=== PATIENT | female | born 1945 | race Caucasian/White ===

== ENCOUNTER 2017-11-19 05:17 | Emergency (ER) | payer OTHER ==
[~2017-11-19] VITALS: Ht 175.3 cm; Wt 102.0 kg
[2017-11-19 05:20] VITALS: TEMP 37; Ht 175.3 cm; Wt 102.0 kg
[2017-11-19] MEDS ORDERED: METOPROLOL TARTRATE 1 MG/ML VIAL IV STA ×2 (05:28→05:44)
--- NOTE | 2017-11-19 05:32 | EMERGENCY ROOM VISIT NOTE ---
History Report prepared by Tran: Cynthia Molina Under the Supervision of: Dr. Sanam Figueredo M.D. First contact with patient: 05:21 Chief Complaint: RESPIRATORY PROBLEMS Stated Complaint: TROUBLE BREATHING History of Present Illness The patient is a 72 year old female who presents to the Emergency Room with complaints of sudden respiratory problems beginning this morning. The patient states that she has had a cough beginning 5 days ago. Per son, the patient went to an urgent care clinic 2 days ago and they were concerned that she may have fluid in her lungs. The patient states that she was given Azithromycin at the urgent care clinic. Per son, the patient has a history of congestive heart failure and states that she was in the hospital several years ago for it. The patient also reports having diarrhea. She states that she takes Minocycline daily for a low grade infection, and that she has been taking this daily for 14 years. The patient denies a history of smoking. Source of History: patient, family (son) Onset: this morning Position: other (global) Quality: other (respiratory problems ) Timing: other (sudden ) Associated Symptoms: + cough, + diarrhea Review of Systems See HPI for pertinent positives & negatives. A total of 10 systems reviewed and were otherwise negative. Past Medical & Surgical Medical Problems: (1) Chronic anticoagulation (2) Chronic fatigue syndrome CHF (congestive heart failure) Family History No pertinent family history Social History Smoking Status: Never Smoker Marital Status: single Housing Status: lives with family Occupation Status: disabled Current/Historical Medications Scheduled Azithromycin (Zithromax), 250 MG PO DAILY Benzonatate (Tessalon Perles), 100 MG PO TID Carvedilol (Coreg), 6.25 MG PO BID Furosemide (Lasix), 40 MG PO BID Levothyroxine Sodium (Synthroid), 112 MCG PO DAILY Lisinopril (Prinivil), 40 MG PO DAILY Melatonin (Melatonin), 5-10 MG PO HS Metronidazole (Flagyl), 500 MG PO UD Minocycline (Minocin), 200 MG PO Q12 Oseltamivir (Tamiflu), 75 MG PO BID Rivaroxaban (Xarelto), 20 MG PO DAILY Tinidazole (Tindamax), 500 MG PO UD Zolpidem Tartrate (Zolpidem Tartrate), 10 MG PO HS Allergies Coded Allergies: Codeine (Verified Allergy, Severe, GI SYMPTOMS, 11/19/17) Physical Exam Vital Signs Date Time Temp Pulse Resp B/P (MAP) Pulse Ox O2 Delivery O2 Flow Rate FiO2 11/19/17 06:35 104 12 100 Room Air 11/19/17 06:30 108/74 11/19/17 06:05 97 15 97 Room Air 11/19/17 06:00 104 17 105/78 97 Room Air 11/19/17 05:51 128 11/19/17 05:47 115/76 11/19/17 05:40 105/84 11/19/17 05:37 133 115/77 11/19/17 05:34 100 Room Air 11/19/17 05:30 151 21 100 Room Air 11/19/17 05:27 100 Room Air 11/19/17 05:26 141 11/19/17 05:22 104 11/19/17 05:20 37.0 112 28 115/77 100 Room Air Physical Exam Vital signs reviewed. General: Anxious female, in no significant distress. HEENT: No scleral icterus, PERRLA, neck supple. Atraumatic. Cardiovascular: Tachycardic and irregular rhythm. Pulmonary: Clear to auscultation bilaterally, normal work of breathing. Abdomen: Soft, nontender, nondistended, positive bowel sounds. Musculoskeletal: Atraumatic, no peripheral edema. Neurologic: Patient awake alert and oriented x 3, full strength in all 4 extremities. Cranial nerves 2 through 12 grossly intact. Skin: Warm, dry. Diffuse discoloration of the face, ears, and bilateral anterior lower extremities. Medical Decision & Procedures ER Provider Diagnostic Interpretation: Radiology results as stated below per my review. Chest X-Ray: Cardiomegaly. Poor inspiratory effort. Some interstitial prominence without evidence of failure. No focal lung consolidation. Laboratory Results 11/19/17 05:31 Red Blood Count 4.23, Mean Corpuscular Volume 92.9, Mean Corpuscular Hemoglobin 33.1, Mean Corpuscular Hemoglobin Concent 35.6, Mean Platelet Volume 10.4, Neutrophils (%) (Auto) 55.8, Lymphocytes (%) (Auto) 25.4, Monocytes (%) (Auto) 17.8, Eosinophils (%) (Auto) 0.6, Basophils (%) (Auto) 0.2, Neutrophils # (Auto ) 2.95, Lymphocytes # (Auto) 1.34, Monocytes # (Auto) 0.94, Eosinophils # (Auto ) 0.03, Basophils # (Auto) 0.01 11/19/17 05:31 Test 11/19/17 05:29 11/19/17 05:31 Bedside Lactic Acid Venous 1.99 mmol/L (0.90-1.70) White Blood Count 5.28 K/uL (4.8-10.8) Red Blood Count 4.23 M/uL (4.2-5.4) Hemoglobin 14.0 g/dL (12.0-16.0) Hematocrit 39.3 % (37-47) Mean Corpuscular Volume 92.9 fL (80-100) Mean Corpuscular Hemoglobin 33.1 pg (25-34) Mean Corpuscular Hemoglobin Concent 35.6 g/dl (32-36) Platelet Count 231 K/uL (130-400) Mean Platelet Volume 10.4 fL (7.4-10.4) Neutrophils (%) (Auto) 55.8 % Lymphocytes (%) (Auto) 25.4 % Monocytes (%) (Auto) 17.8 % Eosinophils (%) (Auto) 0.6 % Basophils (%) (Auto) 0.2 % Neutrophils # (Auto) 2.95 K/uL (1.4-6.5) Lymphocytes # (Auto) 1.34 K/uL (1.2-3.4) Monocytes # (Auto) 0.94 K/uL (0.11-0.59) Eosinophils # (Auto) 0.03 K/uL (0-0.5) Basophils # (Auto) 0.01 K/uL (0-0.2) RDW Standard Deviation 49.6 fL (36.4-46.3) RDW Coefficient of Variation 14.7 % (11.5-14.5) Immature Granulocyte % (Auto) 0.2 % Immature Granulocyte # (Auto) 0.01 K/uL (0.00-0.02) Prothrombin Time 12.3 SECONDS (9.0-12.0) Prothromb Time International Ratio 1.2 (0.9-1.1) Activated Partial Thromboplast Time 33.4 SECONDS (21.0-31.0) Partial Thromboplastin Ratio 1.3 Anion Gap 13.0 mmol/L (3-11) Est Creatinine Clear Calc Drug Dose 51.2 ml/min Estimated GFR () 48.1 Estimated GFR (Non- 41.5 BUN/Creatinine Ratio 24.4 (10-20) Calcium Level 8.9 mg/dl (8.5-10.1) Magnesium Level 2.0 mg/dl (1.8-2.4) Total Bilirubin 0.6 mg/dl (0.2-1) Direct Bilirubin 0.2 mg/dl (0-0.2) Aspartate Amino Transf (AST/SGOT) 39 U/L (15-37) Alanine Aminotransferase (ALT/SGPT) 36 U/L (12-78) Alkaline Phosphatase 187 U/L (45-117) Total Creatine Kinase 544 U/L (26-192) Creatine Kinase MB 1.8 ng/ml (0.5-3.6) Creatine Kinase MB Ratio 0.3 (0-3.0) Pro-B-Type Natriuretic Peptide 91 pg/ml (0-900) Total Protein 7.7 gm/dl (6.4-8.2) Albumin 3.3 gm/dl (3.4-5.0) Thyroid Stimulating Hormone (TSH) 0.485 uIu/ml (0.300-4.500) Laboratory results per my review. Medications Administered Medications (Trade) Dose Ordered Sig/Isidro Route Start Time Stop Time Status Last Admin Dose Admin Metoprolol Tartrate (Lopressor Iv) 5 mg NOW STAT IV 11/19/17 05:28 11/19/17 05:30 DC 11/19/17 05:37 5 MG ECG Per My Interpretation Indication: SOB/dyspnea Rate (beats per minute): 152 Rhythm: atrial fibrillation Findings: no acute ischemic change, other (nonspecific ST changes, left axis deviation ) Change: repeat ECG: Sinus tachycardia, rate of 101 with PVC's, no acute ischemic changes , rhythm switched from atrial fibrillation to sinus rhythm, inferior infarct to both ECG's ED Course 0521: Past medical records reviewed. The patient was evaluated in room A10. A complete history and physical examination was performed. 0528: Ordered Lopressor Iv 5 mg IV. 0550: The patient's heart rate has gone down. 0600: I reevaluated the patient. 0630: I updated the patient on her results. 0700: Upon reevaluation, the patient appeared to have improvement of her symptoms. I discussed findings with her. She verbalized agreement of the treatment plan. She was discharged home. Medical Decision Differential diagnosis: Etiologies such as infections, reactive airway disease, pneumonia, pneumothorax , COPD, CHF, cardiac ischemia, pulmonary embolism, musculoskeletal, gastrointestinal, as well as others were entertained. This patient was evaluated and appeared to be in no significant distress. IV access was obtained and laboratory work was drawn. The patient was placed on the media monitor and found to be in rapid atrial fibrillation. She was given 5 mg of IV metoprolol and converted to a sinus tachycardia. Patient has a history of atrial fibrillation and is anticoagulated. Chest x-ray is clear. Cardiac enzymes are negative, potassium is 3.6, magnesium is 2.0. Patient has renal insufficiency with a creatinine of 1.3. On reevaluation the patient was feeling much improved. She was advised to contact her physician regarding further medication management. She will return to the ER for worsening of symptoms or any medical concerns per Medication Reconcilliation Current Medication List: was personally reviewed by me Blood Pressure Screening Patient's blood pressure: Normal blood pressure Impression Primary Impression: Rapid atrial fibrillation Scribe Attestation The scribe's documentation has been prepared under my direction and personally reviewed by me in its entirety. I confirm that the note above accurately reflects all work, treatment, procedures, and medical decision making performed by me. Departure Information Dispostion Home / Self-Care Referrals No Doctor, Assigned (PCP) Forms HOME CARE DOCUMENTATION FORM, IMPORTANT VISIT INFORMATION, WORK / SCHOOL INSTRUCTIONS Patient Instructions My [facility] Additional Instructions Diagnosis: Rapid atrial fibrillation Please continue your medications as prescribed. Continue the azithromycin until the course is complete. Follow-up with your physician in 5 days as scheduled. Please contact the office sooner for any difficulties. Return to the emergency department for worsening of symptoms or any medical concerns
[2017-11-19 05:34] VITALS: O2SAT 100
[2017-11-19] MEDS ORDERED: METOPROLOL TARTRATE 1 MG/ML VIAL ONE (05:35)
[2017-11-19 05:42] LABS: BASO % 0.2 %; BASO ABS # 0.01 K/uL (0-0.2); EOS % 0.6 %; EOS ABS # 0.03 K/uL (0-0.5); HEMATOCRIT 39.3 % (37-47); IG# 0.01 K/uL (0.00-0.02); LYMPH % 25.4 %; LYMPH ABS # 1.34 K/uL (1.2-3.4); MEAN CELL VOLUME 92.9 fL (80-100); MEAN CORPUSCULAR HEMOGLOBIN 33.1 pg (25-34); MEAN CORPUSCULAR HGB CONC 35.6 g/dl (32-36); MEAN PLATELET VOLUME 10.4 fL (7.4-10.4); MONO % 17.8 %; MONO ABS # 0.94 K/uL (0.11-0.59); NEUT % 55.8 %; NEUT ABS # 2.95 K/uL (1.4-6.5); PLATELET COUNT 231 K/uL (130-400); RED CELL DISTRIBUTION WIDTH CV 14.7 % (11.5-14.5); RED CELL DISTRIBUTION WIDTH SD 49.6 fL (36.4-46.3); WHITE BLOOD COUNT 5.28 K/uL (4.8-10.8)
[2017-11-19 05:52] LABS: INR 1.2 (0.9-1.1); PTT PATIENT 33.4 SECONDS (21.0-31.0)
[2017-11-19 06:00] LABS: ALBUMIN 3.3 gm/dl (3.4-5.0); CALCIUM 8.9 mg/dl (8.5-10.1); CREATININE 1.3 mg/dl (0.60-1.20); POTASSIUM 3.6 mmol/L (3.5-5.1)
[2017-11-19 06:11] LABS: CKMB 1.8 ng/ml (0.5-3.6); TOTAL PROTEIN 7.7 gm/dl (6.4-8.2)
[2017-11-19 06:30] VITALS: BP 108/74
[2017-11-19 06:35] VITALS: PULSE 104; O2SAT 100
[2017-11-19] MEDS ORDERED: CARV6.252 PO (07:08)
[2017-11-19] MEDS ORDERED: LEVO112T2 PO (07:08)
[2017-11-19] MEDS ORDERED: FRS/40 PO (07:08)
[2017-11-19] MEDS ORDERED: LISI40TA PO (07:09)
[2017-11-19] MEDS ORDERED: ZOLP10TA6 PO (07:09)
[2017-11-19] MEDS ORDERED: RIVA1TAB4 PO (07:10)
[2017-11-19] MEDS ORDERED: METR-162 PO (07:10)
[2017-11-19] MEDS ORDERED: MELA5TAB18 PO (07:11)
[2017-11-19] MEDS ORDERED: MINO100C22 PO (07:12)
[2017-11-19] MEDS ORDERED: OXYC-57 PO (07:12)
[2017-11-19] MEDS ORDERED: TINI500T PO (07:14)
--- NOTE | 2017-11-19 07:24 | DIAGNOSTIC IMAGING REPORT ---
CHEST ONE VIEW PORTABLE CLINICAL HISTORY: Shortness of breath. Atrial fibrillation. COMPARISON STUDY: No previous studies for comparison. FINDINGS: There are relatively low lung volumes. The heart is mildly enlarged. There is no overt failure. There is no lobar consolidation. There is slight basilar interstitial prominence. There are no significant pleural effusions.[ IMPRESSION: Mild cardiomegaly. No acute findings. Electronically signed by: Eros Crwo M.D. 11/19/2017 7:23 AM Dictated Date/Time: 11/19/2017 7:22 AM
[2017-11-19] MEDS ORDERED: AZIT250T PO (13:27)
[2017-11-19] MEDS ORDERED: BENZ100C18 PO (16:56)
[2017-11-19] MEDS ORDERED: OSEL75CA12 PO (16:56)
== END 2017-11-19 07:12 | disposition home or self-care (01) ==
LOC: C.EDB 05:18 → C.EDA 07:12
DX: I48.91 Unspecified atrial fibrillation (principal); I50.9 Heart failure, unspecified

== ENCOUNTER 2017-11-19 12:31 | Emergency (ER) | payer OTHER ==
[~2017-11-19] VITALS: Ht 170.2 cm; Wt 102.0 kg
[~2017-11-19 12:31] MED LIST: CARV6.252 PO; FRS/40 PO; LEVO112T2 PO; LISI40TA PO; MELA5TAB18 PO; METR-162 PO; MINO100C22 PO; OXYC-57 PO; RIVA1TAB4 PO; TINI500T PO; ZOLP10TA6 PO
[2017-11-19 12:42] VITALS: TEMP 36.8; Ht 170.2 cm; Wt 102.0 kg
--- NOTE | 2017-11-19 13:15 | EMERGENCY ROOM VISIT NOTE ---
History Report prepared by Tran: Jonatan Pedro Under the Supervision of: Dr. Chan Wang M.D. First contact with patient: 13:04 Chief Complaint: ILLNESS Stated Complaint: RESPIRATORY History of Present Illness The patient is a 72 year old female with a history of CHF who presents to the Emergency Room with complaints of a worsening illness that started earlier this morning. Per the patient's son, the patient was seen here in the ER around 0520 this morning for shortness of breath and dizziness. The patient has also had a bad cough. She was given "something to calm her heart down, and then was observed and went home". She had a chest x-ray here as well as an EKG. However, the patient states that her symptoms have been worsening, and she is more short of breath and dizzy. The patient adds that she has chest pain. Per the patient' s son, this is her normal complexion currently. The patient is followed-up with Dr. Rangel of [facility]. She is on Xarelto. She says that she has been complaint with her medications. Source of History: patient, family (son) Onset: This morning Position: other (global) Quality: other (illness) Timing: worsening Associated Symptoms: + cough, + chest pain, + SOB Note: Associated symptoms: Dizziness. Review of Systems See HPI for pertinent positives and negatives. A total of ten systems were reviewed and were otherwise negative. Past Medical & Surgical Medical Problems: (1) Chronic anticoagulation (2) Chronic fatigue syndrome Family History No pertinent family history Social History Smoking Status: Unknown if Ever Smoked Marital Status: single Occupation Status: retired Current/Historical Medications Scheduled Azithromycin (Zithromax), 250 MG PO DAILY Benzonatate (Tessalon Perles), 100 MG PO TID Carvedilol (Coreg), 6.25 MG PO BID Furosemide (Lasix), 40 MG PO BID Levothyroxine Sodium (Synthroid), 112 MCG PO DAILY Lisinopril (Prinivil), 40 MG PO DAILY Melatonin (Melatonin), 5-10 MG PO HS Metronidazole (Flagyl), 500 MG PO UD Minocycline (Minocin), 200 MG PO Q12 Oseltamivir (Tamiflu), 75 MG PO BID Rivaroxaban (Xarelto), 20 MG PO DAILY Tinidazole (Tindamax), 500 MG PO UD Zolpidem Tartrate (Zolpidem Tartrate), 10 MG PO HS Allergies Coded Allergies: Codeine (Verified Allergy, Severe, GI SYMPTOMS, 11/19/17) Physical Exam Vital Signs Date Time Temp Pulse Resp B/P (MAP) Pulse Ox O2 Delivery O2 Flow Rate FiO2 11/19/17 17:22 111 20 100/62 99 11/19/17 16:38 112 20 104/63 97 Room Air 11/19/17 15:25 75 20 102/74 97 Room Air 11/19/17 13:32 100 Room Air 11/19/17 12:45 105 11/19/17 12:42 36.8 105 20 104/79 100 Room Air Physical Exam Physical Exam GENERAL: She is oriented to person, place, and time. She appears well- developed and well-nourished. She does not appear distressed. ____ HENT: Exam performed. Head: Normocephalic and atraumatic. Right Ear: External ear normal. No mastoid tenderness. Left Ear: External ear normal. No mastoid tenderness. Mouth/Throat: The oropharynx is clear and moist. No trismus in the jaw. No dental abscesses or uvula swelling. No oropharyngeal exudate or tonsillar abscesses. ____ EYES: Conjunctivae and EOM are normal. Pupils are equal, round, and reactive to light. Right eye exhibits no discharge. Left eye exhibits no discharge. No scleral icterus. ____ NECK: Normal range of motion. Neck supple. No JVD present. No spinous process tenderness present. No carotid bruit present. No rigidity. No tracheal deviation and normal range of motion present. No Brudzinski's sign and no Kernig 's sign noted. ____ CV: Tachycardic rate, irregular rhythm, normal heart sounds and intact distal pulses. There is no peripheral edema. Palpable radial pulses bue. ____ PULM/CHEST: Rhonchi bilaterally. No stridor. She has no wheezes. She has no rales. Chest Wall: She exhibits no tenderness. ____ ABD: The abdomen is soft. Bowel sounds are normal. She has no distension. No mass is present. There is no tenderness. There is no rebound, no guarding, no Godinez's sign and no tenderness at McBurney's point. Rovsig negative MUSC/SKEL: Normal range of motion. There is no peripheral edema, tenderness or deformity. LYMPH: No cervical adenopathy. ____ NEURO: She is alert and oriented to person, place, and time. She has normal strength. No cranial nerve deficit or sensory deficit. Coordination and gait normal. GCS eye subscore is 4. GCS verbal subscore is 5. GCS motor subscore is 6. Cerebellar tests wnl. ____ SKIN: Greyish discoloration which is baseline per family members who states this is due to her chronic minocycline usage. Skin is warm and dry. She is not diaphoretic. ____ PSYCH: She has a normal mood and affect. She behavior is normal. Judgment and thought content normal. ____ Medical Decision & Procedures ER Provider Diagnostic Interpretation: CT: Radiology results as stated below per my review and radiologist interpretation (CHEST FOR PE) ANGIO WITH CLINICAL HISTORY: 72 years-old Female presenting with atrial fibrillation, shortness of breath, clinical concern for pulmonary embolus. TECHNIQUE: Multidetector CT angiography of the chest was performed after administration of intravenous contrast. 3-D volumetric and/or maximum intensity projection (MIP) images were subsequently reconstructed for review. IV contrast: 109 mL of Optiray 320. A dose lowering technique was used consistent with the principles of ALARA (as low as reasonably achievable). COMPARISON: None. CT DOSE (mGy.cm): The estimated cumulative dose is 570.28 mGycm. FINDINGS: [employer] topogram: Unremarkable. Pulmonary vasculature: The study is adequate for assessment of the pulmonary vascular tree. No filling defect within the pulmonary arteries to suggest embolus. Main pulmonary artery is not enlarged. No flattening of the interventricular septum. No intracardiac filling defect. No reflux of contrast into the hepatic veins. Remaining chest: On soft tissue windows, left subpectoral breast implant. Collapse right breast implant, which appears chronic. Enlarged and multinodular thyroid. No axillary, supraclavicular, hilar, or mediastinal lymphadenopathy. Normal aorta. Normal heart size. Mitral annular calcification. No pericardial or pleural effusion. Hepatic steatosis. On lung windows, solid 5 mm nodule left lung base (series 4 image 89). No other infiltrate or nodule. Airways patent. On bone windows, degenerative changes of the spine. IMPRESSION: 1. No evidence of pulmonary embolus. No acute intrathoracic pathology. 2. Solid 5 mm nodule in the left lower lobe. Follow-up per Deandre Society 2017 recommendations below. 3. Chronically collapsed right breast implant. Please refer to below summary of Fleischner Society 2017 recommendations for follow-up of incidental CT nodules (Jacey Devi et al. Guidelines for management of incidental pulmonary nodules detected on CT images: From the Fleischner Society 2017. Radiology 2017; 284: 228-243.) SOLID NODULES Single nodule; size < 6 mm * Low risk patients: No routine follow-up * High risk patients: Optional CT at 12 months Single nodule; size 6-8 mm * Low risk patients: CT at 6-12 months, then consider CT at 18-24 months * High risk patients: CT at 6-12 months, then at 18-24 months Single nodule; size > 8 mm * Either low or high risk patients: Considered CT at 3 months, PET/CT, or tissue sampling Multiple nodules; size < 6 mm * Low risk patients: No routine follow up * High risk patients: Optional CT at 12 months Multiple nodules; size 6-8 mm * Low risk patients: CT at 3-6 months, then consider CT at 18-24 months * High risk patients: CT at 3-6 months, then at 18-24 months Multiple nodules; size > 8 mm * Low risk patients: CT at 3-6 months, then consider at 18-24 months * High risk patients: CT at 3-6 months, then at 18-24 months SUBSOLID NODULES Single ground-glass nodule * Nodule size < 6 mm: No routine follow-up * Nodule size > or = 6 mm: CT at 6-12 months to confirm persistence, then CT every 2 years until 5 years Single part-solid nodule * Nodule size < 6 mm: No routine follow-up * Nodules size > or = 6 mm: CT at 3-6 months to confirm persistence. If unchanged and solid component remains < 6 mm, annual CT should be performed for 5 years Multiple nodules * Nodule size < 6 mm: CT at 3-6 months. If stable, consider CT at 2 and 4 years. * Nodules size > or = 6 mm: CT at 3-6 months. Subsequent management based on the most suspicious nodule(s) NOTE: These guidelines apply to incidental nodules. These guidelines do not apply to patients younger than 35 years, immunocompromised patients, or patients with cancer. * Low risk patients: Minimal or absent history of smoking and/or other known risk factors * High risk patients: History of smoking, exposure to other carcinogens, emphysema, fibrosis, upper lobe location, family history of lung cancer, etc. If a nodule up to 8 mm is partly solid or is ground glass, further follow-up is required after 24 months to exclude possible slow growing adenocarcinoma. Electronically signed by: Ted Lee M.D. 11/19/2017 4:43 PM Dictated Date/Time: 11/19/2017 4:38 PM Laboratory Results 11/19/17 13:50 Red Blood Count 4.02, Mean Corpuscular Volume 94.0, Mean Corpuscular Hemoglobin 32.6, Mean Corpuscular Hemoglobin Concent 34.7, Mean Platelet Volume 11.0, Neutrophils (%) (Auto) 55.8, Lymphocytes (%) (Auto) 25.2, Monocytes (%) (Auto) 18.4, Eosinophils (%) (Auto) 0.2, Basophils (%) (Auto) 0.2, Neutrophils # (Auto ) 2.72, Lymphocytes # (Auto) 1.23, Monocytes # (Auto) 0.90, Eosinophils # (Auto ) 0.01, Basophils # (Auto) 0.01 11/19/17 13:50 Test 11/19/17 13:30 11/19/17 13:50 Influenza Type A Antigen POS for Influ A (NEG) Influenza Type B Antigen Neg for Influ B (NEG) White Blood Count 4.88 K/uL (4.8-10.8) Red Blood Count 4.02 M/uL (4.2-5.4) Hemoglobin 13.1 g/dL (12.0-16.0) Hematocrit 37.8 % (37-47) Mean Corpuscular Volume 94.0 fL (80-100) Mean Corpuscular Hemoglobin 32.6 pg (25-34) Mean Corpuscular Hemoglobin Concent 34.7 g/dl (32-36) Platelet Count 225 K/uL (130-400) Mean Platelet Volume 11.0 fL (7.4-10.4) Neutrophils (%) (Auto) 55.8 % Lymphocytes (%) (Auto) 25.2 % Monocytes (%) (Auto) 18.4 % Eosinophils (%) (Auto) 0.2 % Basophils (%) (Auto) 0.2 % Neutrophils # (Auto) 2.72 K/uL (1.4-6.5) Lymphocytes # (Auto) 1.23 K/uL (1.2-3.4) Monocytes # (Auto) 0.90 K/uL (0.11-0.59) Eosinophils # (Auto) 0.01 K/uL (0-0.5) Basophils # (Auto) 0.01 K/uL (0-0.2) RDW Standard Deviation 50.0 fL (36.4-46.3) RDW Coefficient of Variation 14.7 % (11.5-14.5) Immature Granulocyte % (Auto) 0.2 % Immature Granulocyte # (Auto) 0.01 K/uL (0.00-0.02) Venous Blood pH 7.46 (7.36-7.41) Venous Blood Partial Pressure CO2 36 mmHg (38.0-50.0) Venous Blood Partial Pressure O2 27 mmHg Venous Blood HCO3 25 mmol/L Venous Blood Oxygen Saturation < 60.0 % Venous Blood Base Excess 1.5 mEq/L Anion Gap 9.0 mmol/L (3-11) Est Creatinine Clear Calc Drug Dose 54.5 ml/min Estimated GFR () 54.1 Estimated GFR (Non- 46.7 BUN/Creatinine Ratio 25.4 (10-20) Lactic Acid Level 1.7 mmol/L (0.4-2.0) Calcium Level 8.9 mg/dl (8.5-10.1) Troponin I < 0.015 ng/ml (0-0.045) Laboratory results reviewed by me Medications Administered Medications (Trade) Dose Ordered Sig/Isidro Route Start Time Stop Time Status Last Admin Dose Admin Ketorolac Tromethamine (Toradol Inj) 15 mg NOW STAT IV 11/19/17 15:46 11/19/17 15:47 DC 11/19/17 15:46 15 MG ECG Per My Interpretation Indication: SOB/dyspnea Rate (beats per minute): 98 Rhythm: other (sinus arrhythmia) Findings: other (DE, QRS, and QTC intervals within normal limits, no ST elevation or ST depression) ED Course 1309: The patient was evaluated in room A11A. A complete history and physical exam was performed. EMR was reviewed - she was seen this morning at 0521 - she came in with atrial fibrillation with RVR, with a rate of 152. She was given 5 mg of Lopressor IV, which controlled her rate. She had lab work done, which showed a negative lactic acid, negative white blood cell count, and negative pro -BNP. 1546: Toradol Inj 15 mg IV. 1650: CTA of chest did not show any PE. Lung nodule was present, the family and patient were made aware of this and they will follow-up with her PCP about this. Labs within normal limits with the exception of positive influenza A. I reevaluated the patient and her vitals are stable. She states that she feels much better. The patient's CTA is negative for any blood clot. Her labs are within normal limits with the exception of being flu positive. The patient will be discharged with Tamiflu and an anti-tussive. DISCHARGE - Plan of care discussed with patient and questions answered. The patient was given both verbal and printed discharge instructions. The patient verbalized understanding and ability to comply. The patient is to seek outpatient follow up as noted in the discharge instructions. The patient verbalized understanding and ability to comply. The patient is discharged in stable condition. The patient was instructed to return for worsening symptoms. Medical Decision CTA of chest did not show any PE. Lung nodule was present, the family and patient were made aware of this and they will follow-up with her PCP about this. Labs within normal limits with the exception of positive influenza A. I reevaluated the patient and her vitals are stable. She states that she feels much better. The patient's CTA is negative for any blood clot. Her labs are within normal limits with the exception of being flu positive. The patient will be discharged with Tamiflu and an anti-tussive. DISCHARGE - Plan of care discussed with patient and questions answered. The patient was given both verbal and printed discharge instructions. The patient verbalized understanding and ability to comply. The patient is to seek outpatient follow up as noted in the discharge instructions. The patient verbalized understanding and ability to comply. The patient is discharged in stable condition. The patient was instructed to return for worsening symptoms. Medication Reconcilliation Current Medication List: was personally reviewed by me Blood Pressure Screening Patient's blood pressure: Normal blood pressure Impression Primary Impression: Influenza Scribe Attestation The scribe's documentation has been prepared under my direction and personally reviewed by me in its entirety. I confirm that the note above accurately reflects all work, treatment, procedures, and medical decision making performed by me. The chart was completed utilizing [employer] Speech voice recognition software. Grammatical errors, random word insertions, pronoun errors, and incomplete sentences are an occasional consequence of this system due to software limitations, ambient noise, and hardware issues. Any formal questions or concerns about the content, text, or information contained within the body of this dictation should be directly addressed to the physician for clarification. Departure Information Dispostion Home / Self-Care Prescriptions Benzonatate (TESSALON PERLES) 100 Mg Cap 100 MG PO TID for Cough, #30 CAP Prov: Chan Wang M.D. 11/19/17 Oseltamivir (Tamiflu) 75 Mg Cap 75 MG PO BID, #10 CAP Prov: Chan Wang M.D. 11/19/17 Referrals No Doctor, Assigned (PCP) Qasim Rangel MD Forms HOME CARE DOCUMENTATION FORM, IMPORTANT VISIT INFORMATION, WORK / SCHOOL INSTRUCTIONS Patient Instructions ED Flu, My [facility]
[2017-11-19] MEDS ORDERED: AZIT250T PO (13:27)
[2017-11-19] MEDS ORDERED: OPTIRAY 320 IV PRN (13:30)
[2017-11-19 13:32] VITALS: O2SAT 100
[2017-11-19 14:10] LABS: BASO % 0.2 %; BASO ABS # 0.01 K/uL (0-0.2); EOS % 0.2 %; EOS ABS # 0.01 K/uL (0-0.5); HEMATOCRIT 37.8 % (37-47); HEMOGLOBIN 13.1 g/dL (12.0-16.0); IG# 0.01 K/uL (0.00-0.02); LYMPH % 25.2 %; LYMPH ABS # 1.23 K/uL (1.2-3.4); MEAN CORPUSCULAR HEMOGLOBIN 32.6 pg (25-34); MEAN CORPUSCULAR HGB CONC 34.7 g/dl (32-36); MONO % 18.4 %; NEUT % 55.8 %; NEUT ABS # 2.72 K/uL (1.4-6.5); PLATELET COUNT 225 K/uL (130-400); RED CELL DISTRIBUTION WIDTH CV 14.7 % (11.5-14.5); WHITE BLOOD COUNT 4.88 K/uL (4.8-10.8)
[2017-11-19 14:16] LABS: INFLUENZA B ANTIGEN Neg for Influ B (NEG)
[2017-11-19 14:27] LABS: BLOOD UREA NITROGEN 30 mg/dl (7-18); CALCIUM 8.9 mg/dl (8.5-10.1); CARBON DIOXIDE 23 mmol/L (21-32); CREATININE 1.18 mg/dl (0.60-1.20); GLUCOSE 94 mg/dl (70-99); POTASSIUM 3.8 mmol/L (3.5-5.1); SODIUM 133 mmol/L (136-145)
[2017-11-19] MEDS ORDERED: KETOROLAC TROMETHAMINE 30 MG/ML VIAL IV STA (15:46)
[2017-11-19] MEDS ORDERED: KETOROLAC TROMETHAMINE 15 MG/ML VIAL ONE (15:56)
--- NOTE | 2017-11-19 16:44 | DIAGNOSTIC IMAGING REPORT ---
(CHEST FOR PE) ANGIO WITH CLINICAL HISTORY: 72 years-old Female presenting with atrial fibrillation, shortness of breath, clinical concern for pulmonary embolus. TECHNIQUE: Multidetector CT angiography of the chest was performed after administration of intravenous contrast. 3-D volumetric and/or maximum intensity projection (MIP) images were subsequently reconstructed for review. IV contrast: 109 mL of Optiray 320. A dose lowering technique was used consistent with the principles of ALARA (as low as reasonably achievable). COMPARISON: None. CT DOSE (mGy.cm): The estimated cumulative dose is 570.28 mGycm. FINDINGS: Belt Turner topogram: Unremarkable. Pulmonary vasculature: The study is adequate for assessment of the pulmonary vascular tree. No filling defect within the pulmonary arteries to suggest embolus. Main pulmonary artery is not enlarged. No flattening of the interventricular septum. No intracardiac filling defect. No reflux of contrast into the hepatic veins. Remaining chest: On soft tissue windows, left subpectoral breast implant. Collapse right breast implant, which appears chronic. Enlarged and multinodular thyroid. No axillary, supraclavicular, hilar, or mediastinal lymphadenopathy. Normal aorta. Normal heart size. Mitral annular calcification. No pericardial or pleural effusion. Hepatic steatosis. On lung windows, solid 5 mm nodule left lung base (series 4 image 89). No other infiltrate or nodule. Airways patent. On bone windows, degenerative changes of the spine. IMPRESSION: 1. No evidence of pulmonary embolus. No acute intrathoracic pathology. 2. Solid 5 mm nodule in the left lower lobe. Follow-up per Deandre Society 2017 recommendations below. 3. Chronically collapsed right breast implant. Please refer to below summary of Fleischner Society 2017 recommendations for follow-up of incidental CT nodules (H Marito et al. Guidelines for management of incidental pulmonary nodules detected on CT images: From the Fleischner Society 2017. Radiology 2017; 284: 228-243.) SOLID NODULES Single nodule; size < 6 mm * Low risk patients: No routine follow-up * High risk patients: Optional CT at 12 months Single nodule; size 6-8 mm * Low risk patients: CT at 6-12 months, then consider CT at 18-24 months * High risk patients: CT at 6-12 months, then at 18-24 months Single nodule; size > 8 mm * Either low or high risk patients: Considered CT at 3 months, PET/CT, or tissue sampling Multiple nodules; size < 6 mm * Low risk patients: No routine follow up * High risk patients: Optional CT at 12 months Multiple nodules; size 6-8 mm * Low risk patients: CT at 3-6 months, then consider CT at 18-24 months * High risk patients: CT at 3-6 months, then at 18-24 months Multiple nodules; size > 8 mm * Low risk patients: CT at 3-6 months, then consider at 18-24 months * High risk patients: CT at 3-6 months, then at 18-24 months SUBSOLID NODULES Single ground-glass nodule * Nodule size < 6 mm: No routine follow-up * Nodule size > or = 6 mm: CT at 6-12 months to confirm persistence, then CT every 2 years until 5 years Single part-solid nodule * Nodule size < 6 mm: No routine follow-up * Nodules size > or = 6 mm: CT at 3-6 months to confirm persistence. If unchanged and solid component remains < 6 mm, annual CT should be performed for 5 years Multiple nodules * Nodule size < 6 mm: CT at 3-6 months. If stable, consider CT at 2 and 4 years. * Nodules size > or = 6 mm: CT at 3-6 months. Subsequent management based on the most suspicious nodule(s) NOTE: These guidelines apply to incidental nodules. These guidelines do not apply to patients younger than 35 years, immunocompromised patients, or patients with cancer. * Low risk patients: Minimal or absent history of smoking and/or other known risk factors * High risk patients: History of smoking, exposure to other carcinogens, emphysema, fibrosis, upper lobe location, family history of lung cancer, etc. If a nodule up to 8 mm is partly solid or is ground glass, further follow-up is required after 24 months to exclude possible slow growing adenocarcinoma. Electronically signed by: Ted Lee M.D. 11/19/2017 4:43 PM Dictated Date/Time: 11/19/2017 4:38 PM
[2017-11-19] MEDS ORDERED: BENZ100C18 PO (16:56)
[2017-11-19] MEDS ORDERED: OSEL75CA12 PO (16:56)
[2017-11-19 17:22] VITALS: BP 100/62; PULSE 111; O2SAT 99
== END 2017-11-19 17:24 | disposition home or self-care (01) ==
LOC: EDBD 12:31 → C.EDA 12:32
DX: J10.1 Influenza due to other identified influenza virus with other respiratory manifestations (principal); Z88.5 Allergy status to narcotic agent

== ENCOUNTER 2017-11-21 13:21 | Inpatient (IN) | payer OTHER ==
[~2017-11-21] VITALS: Ht 170.2 cm; Wt 100.7 kg
[~2017-11-21 13:21] MED LIST changes: +AZIT250T PO; +BENZ100C18 PO; +OSEL75CA12 PO; -OXYC-57 PO
[2017-11-21] MEDS ORDERED: ALBUT/IPRATROP 3MG/0.5MG NEB 3 ML VIAL INH STA (14:03)
[2017-11-21] MEDS ORDERED: SODIUM CHLORIDE 0.9% 500ML 500 ML IV STA (14:04)
--- NOTE | 2017-11-21 14:05 | EMERGENCY ROOM VISIT NOTE ---
History Report prepared by Tran: Pamela Rodriguez Under the Supervision of: Dr. Matt Whitman M.D. First contact with patient: 13:52 Chief Complaint: FLU LIKE SX Stated Complaint: ILLNESS History of Present Illness The patient is a 72 year old female who presents to the Emergency Room with complaints of persistent flu like symptoms for the past several days. She was brought to the ED via ALS. She was seen here in the ED yesterday and diagnosed with flu A. The patient states she has a fever, cough and feels weak. Her BSG is 108. She has experienced chest pain with her cough. She has been nauseous and states she hasn't eaten today. She has not vomited. She reports she is unable to care for herself while at home because "I cannot move". Source of History: patient Onset: past several days Position: other (global) Timing: other (persistent) Associated Symptoms: + fevers, + cough, + chest pain, + nausea, + weakness, No vomiting Review of Systems See HPI for pertinent positives & negatives. A total of 10 systems reviewed and were otherwise negative. Past Medical & Surgical Medical Problems: (1) CHF (congestive heart failure) (2) Chronic anticoagulation (3) Chronic fatigue syndrome Family History No pertinent family history Social History Smoking Status: Never Smoker Alcohol Use: none Drug Use: none Marital Status: single Housing Status: lives alone Occupation Status: retired Current/Historical Medications Scheduled Azithromycin (Zithromax), 250 MG PO DAILY Benzonatate (Tessalon Perles), 100 MG PO TID Carvedilol (Coreg), 6.25 MG PO BID Furosemide (Lasix), 40 MG PO BID Levothyroxine Sodium (Synthroid), 112 MCG PO DAILY Lisinopril (Prinivil), 40 MG PO DAILY Melatonin (Melatonin), 5-10 MG PO HS Metronidazole (Flagyl), 500 MG PO UD Minocycline (Minocin), 200 MG PO Q12 Oseltamivir (Tamiflu), 75 MG PO BID Rivaroxaban (Xarelto), 20 MG PO DAILY Tinidazole (Tindamax), 500 MG PO UD Zolpidem Tartrate (Zolpidem Tartrate), 10 MG PO HS Allergies Coded Allergies: Codeine (Verified Allergy, Severe, GI SYMPTOMS, 11/21/17) Physical Exam Vital Signs Date Time Temp Pulse Resp B/P (MAP) Pulse Ox O2 Delivery O2 Flow Rate FiO2 11/21/17 17:55 105 18 134/75 100 Room Air 11/21/17 15:45 100 15 139/98 100 Room Air 11/21/17 14:45 98 18 117/84 100 Room Air 11/21/17 13:27 105 11/21/17 13:25 36.6 97 20 120/77 100 Room Air Physical Exam GENERAL: Patient is tired appearing and in mild distress. EYES: No scleral icterus, unremarkable pupils. ENT: Mucous membranes dry, no nasal congestion. NECK: No masses appreciated, no meningismus, trachea is midline. RESPIRATORY: No dyspnea. Diffuse wheezing and crackles in all lung ny. No rhonchi. CARDIOVASCULAR: Tachycardic heart rate, regular rhythm. No murmurs, rubs, gallops appreciated. GASTROINTESTINAL: Abdomen soft, nontender, no peritonitis. Bowel sounds positive. No masses appreciated. BACK: No midline tenderness, no CVA tenderness EXTREMITIES: Normal motion all extremities, no cyanosis, no edema. NEUROLOGIC: Alert and oriented, no acute motor or sensory deficits, no focal weakness, cranial nerves grossly intact. SKIN: Poor skin turgor. Treadwell/black staining of lower legs, face and eyes ( chronic secondary to minocycline) No rash, no jaundice, no diaphoresis. Medical Decision & Procedures ER Provider Diagnostic Interpretation: Radiology results and stated below per my review and radiologist interpretation: SINGLE VIEW CHEST CLINICAL HISTORY: Generalized weakness. FINDINGS: An AP, portable, upright chest radiograph is compared to chest x-ray and chest CT dated 11/19/2017. The heart is top normal for projection. The pulmonary vasculature is noncongested. There are low lung lungs with bibasilar atelectasis. Chronic interstitial thickening is similar to previous. No airspace consolidation or large pleural effusion is identified. No pneumothorax is seen. The skeletal structures are osteopenic. There are healed right-sided rib fractures. IMPRESSION: No acute cardiopulmonary abnormality and no significant change from studies dated 11/19/2017. Electronically signed by: Paco Christine M.D. 11/21/2017 2:53 PM Laboratory Results 11/21/17 15:30 Red Blood Count 4.22, Mean Corpuscular Volume 92.4, Mean Corpuscular Hemoglobin 33.2, Mean Corpuscular Hemoglobin Concent 35.9, Mean Platelet Volume 10.3, Neutrophils (%) (Auto) 63.5, Lymphocytes (%) (Auto) 26.6, Monocytes (%) (Auto) 9.3, Eosinophils (%) (Auto) 0.2, Basophils (%) (Auto) 0.2, Neutrophils # (Auto) 3.90, Lymphocytes # (Auto) 1.63, Monocytes # (Auto) 0.57, Eosinophils # (Auto) 0.01, Basophils # (Auto) 0.01 11/21/17 15:30 Test 11/21/17 15:30 11/21/17 15:42 White Blood Count 6.13 K/uL (4.8-10.8) Red Blood Count 4.22 M/uL (4.2-5.4) Hemoglobin 14.0 g/dL (12.0-16.0) Hematocrit 39.0 % (37-47) Mean Corpuscular Volume 92.4 fL (80-100) Mean Corpuscular Hemoglobin 33.2 pg (25-34) Mean Corpuscular Hemoglobin Concent 35.9 g/dl (32-36) Platelet Count 230 K/uL (130-400) Mean Platelet Volume 10.3 fL (7.4-10.4) Neutrophils (%) (Auto) 63.5 % Lymphocytes (%) (Auto) 26.6 % Monocytes (%) (Auto) 9.3 % Eosinophils (%) (Auto) 0.2 % Basophils (%) (Auto) 0.2 % Neutrophils # (Auto) 3.90 K/uL (1.4-6.5) Lymphocytes # (Auto) 1.63 K/uL (1.2-3.4) Monocytes # (Auto) 0.57 K/uL (0.11-0.59) Eosinophils # (Auto) 0.01 K/uL (0-0.5) Basophils # (Auto) 0.01 K/uL (0-0.2) RDW Standard Deviation 48.3 fL (36.4-46.3) RDW Coefficient of Variation 14.4 % (11.5-14.5) Immature Granulocyte % (Auto) 0.2 % Immature Granulocyte # (Auto) 0.01 K/uL (0.00-0.02) Prothrombin Time 11.6 SECONDS (9.0-12.0) Prothromb Time International Ratio 1.1 (0.9-1.1) Activated Partial Thromboplast Time 31.0 SECONDS (21.0-31.0) Partial Thromboplastin Ratio 1.2 Anion Gap 9.0 mmol/L (3-11) Est Creatinine Clear Calc Drug Dose 52.1 ml/min Estimated GFR () 51.5 Estimated GFR (Non- 44.4 BUN/Creatinine Ratio 23.7 (10-20) Calcium Level 8.5 mg/dl (8.5-10.1) Phosphorus Level 3.5 mg/dl (2.5-4.9) Magnesium Level 2.2 mg/dl (1.8-2.4) Total Bilirubin 0.9 mg/dl (0.2-1) Direct Bilirubin 0.3 mg/dl (0-0.2) Aspartate Amino Transf (AST/SGOT) 54 U/L (15-37) Alanine Aminotransferase (ALT/SGPT) 44 U/L (12-78) Alkaline Phosphatase 176 U/L (45-117) Total Creatine Kinase 705 U/L (26-192) Creatine Kinase MB 3.2 ng/ml (0.5-3.6) Creatine Kinase MB Ratio 0.5 (0-3.0) Troponin I < 0.015 ng/ml (0-0.045) Total Protein 7.9 gm/dl (6.4-8.2) Albumin 3.5 gm/dl (3.4-5.0) Lipase 167 U/L (73-393) Bedside Lactic Acid Venous 1.25 mmol/L (0.90-1.70) Laboratory results as reviewed by me. Medications Administered Medications (Trade) Dose Ordered Sig/Isidro Route Start Time Stop Time Status Last Admin Dose Admin Albuterol/ Ipratropium (Duoneb) 3 ml NOW STAT INH 11/21/17 14:03 11/21/17 14:05 DC 11/21/17 14:44 3 ML Sodium Chloride 500 ml @ 999 mls/hr Q31M STAT IV 11/21/17 14:04 11/21/17 14:34 DC 11/21/17 15:45 999 MLS/HR Sodium Chloride 1,000 ml @ 100 mls/hr Q10H STAT IV 11/21/17 16:46 11/21/17 20:08 DC 11/21/17 17:41 100 MLS/HR Oseltamivir Phosphate (Tamiflu Cap) 75 mg NOW STAT PO 11/21/17 16:54 11/21/17 16:55 DC 11/21/17 17:41 75 MG Ketorolac Tromethamine (Toradol Inj) 30 mg STK-MED ONCE .ROUTE 11/21/17 17:31 11/21/17 17:32 DC 11/21/17 17:42 15 MG ECG Per My Interpretation Indication: weakness Rate (beats per minute): 107 Rhythm: sinus tachycardia Findings: no acute ischemic change, no ectopy, other (QTC is 488 milliseconds) Change: EKG: Electrocardiogram per my interpretation. ED Course 1357: The patient was evaluated in room C5. A complete history and physical exam was performed. 1403: DuoNeb 3 ml INH. 1404: NSS 500 ml @ 999 mls/hr IV. 1642: I reevaluated the patient. She states the fluids are moving through her body and she is feeling much better. However, she is far too weak to get up and declines any medications by mouth because they will block up her liver. Her HR is still 110 and she is saturating at 100%. I discussed my recommendation she remain in the hospital for further evaluation and management and she verbalized complete understanding and agreement. 1646: NSS 1000 ml @ 100 mls/hr IV. 1653: I discussed the patients case with Dr. Hamilton, [facility] Hospitalist. The patient will be further evaluated. 1654: Tamiflu 75 mg PO. 1737: The patient asked for Toradol. I will put in orders. Medical Decision 72 yr old female arrives for evaluation of fatigue, generalized weakness and loss of appetite. Diagnosed with Influenza 2 days ago here in ED. She has been here now 3 times and is clearly not doing well at home. Mildly tachycardic , dehydrated and is having diffuse wheezing. Wheezing much improved with neb. She is feeling better after fluids though notes too weak to stand. With her CHF I am a bit anxious about given too much fluids right off. No evidence pneumonia, sepsis, bacteremia currently. She is having increasing CK which is a bit concerning given she has been just laying on cough unable to get up due to illness. Complaining that her liver must be blocked up but no TTP nor significant abdominal pain. Blood cultures were obtained given she is coming in. She has no evidence of ACS/PE currently, and just had CT PE here 2 days ago which was negative. She is not doing well at home and given this she will need to come in for further monitoring, rehydration. Medication Reconcilliation Current Medication List: was personally reviewed by me Blood Pressure Screening Patient's blood pressure: Normal blood pressure Blood pressure disposition: Did not require urgent referral Consults Time Called: 164 Consulting Physician: Dr. Hamilton [facility] Hospitalist Returned Call: [phone] I discussed the patients case with Dr. Hamilton [facility] Hospitalist. The patient will be further evaluated. Impression Primary Impression: Influenza Additional Impressions: Failure to thrive Generalized weakness Dehydration Elevated CK Scribe Attestation The scribe's documentation has been prepared under my direction and personally reviewed by me in its entirety. I confirm that the note above accurately reflects all work, treatment, procedures, and medical decision making performed by me. Departure Information Dispostion Being Evaluated By Hospitalist Referrals Qasim Rangel MD (PCP) Patient Instructions My [facility] Problem Qualifiers
--- NOTE | 2017-11-21 14:54 | DIAGNOSTIC IMAGING REPORT ---
SINGLE VIEW CHEST CLINICAL HISTORY: Generalized weakness. FINDINGS: An AP, portable, upright chest radiograph is compared to chest x-ray and chest CT dated 11/19/2017. The heart is top normal for projection. The pulmonary vasculature is noncongested. There are low lung lungs with bibasilar atelectasis. Chronic interstitial thickening is similar to previous. No airspace consolidation or large pleural effusion is identified. No pneumothorax is seen. The skeletal structures are osteopenic. There are healed right-sided rib fractures. IMPRESSION: No acute cardiopulmonary abnormality and no significant change from studies dated 11/19/2017. Electronically signed by: Paco Christine M.D. 11/21/2017 2:53 PM Dictated Date/Time: 11/21/2017 2:51 PM
[2017-11-21 15:41] LABS: BASO % 0.2 %; BASO ABS # 0.01 K/uL (0-0.2); EOS % 0.2 %; EOS ABS # 0.01 K/uL (0-0.5); IG# 0.01 K/uL (0.00-0.02); LYMPH % 26.6 %; LYMPH ABS # 1.63 K/uL (1.2-3.4); MEAN CELL VOLUME 92.4 fL (80-100); MEAN CORPUSCULAR HEMOGLOBIN 33.2 pg (25-34); MEAN CORPUSCULAR HGB CONC 35.9 g/dl (32-36); MEAN PLATELET VOLUME 10.3 fL (7.4-10.4); MONO % 9.3 %; MONO ABS # 0.57 K/uL (0.11-0.59); NEUT % 63.5 %; PLATELET COUNT 230 K/uL (130-400); RED CELL DISTRIBUTION WIDTH CV 14.4 % (11.5-14.5); RED CELL DISTRIBUTION WIDTH SD 48.3 fL (36.4-46.3); WHITE BLOOD COUNT 6.13 K/uL (4.8-10.8)
[2017-11-21 15:49] LABS: INR 1.1 (0.9-1.1)
[2017-11-21 16:13] LABS: ALBUMIN 3.5 gm/dl (3.4-5.0); ALKALINE PHOSPHATASE 176 U/L (45-117); ALT/SGPT 44 U/L (12-78); AST/SGOT 54 U/L (15-37); BLOOD UREA NITROGEN 29 mg/dl (7-18); CALCIUM 8.5 mg/dl (8.5-10.1); CARBON DIOXIDE 25 mmol/L (21-32); CKMB 3.2 ng/ml (0.5-3.6); CREATININE 1.23 mg/dl (0.60-1.20); GLUCOSE 90 mg/dl (70-99); LIPASE 167 U/L (73-393); PHOSPHORUS 3.5 mg/dl (2.5-4.9); POTASSIUM 3.9 mmol/L (3.5-5.1); SODIUM 132 mmol/L (136-145); TOTAL PROTEIN 7.9 gm/dl (6.4-8.2)
[2017-11-21] MEDS ORDERED: SODIUM CHLORIDE 0.9% 1000ML 1,000 ML IV STA (16:46)
[2017-11-21] MEDS ORDERED: OSELTAMIVIR PHOSPHATE 75 MG CAP PO STA (16:54)
[2017-11-21] MEDS ORDERED: KETOROLAC TROMETHAMINE 30 MG/ML VIAL ONE (17:31)
--- NOTE | 2017-11-21 17:32 | History and Physical ---
History & Physical Date & Time of Service: Nov 21, 2017 at 17:24 Chief Complaint: Illness Primary Care Physician: Qasim Rangel MD History of Present Illness Source: patient, family Ms. Eva Ford is a 72-year-old woman with past medical history significant for atrial fibrillation on anticoagulation therapy, congestive heart failure (unknown EF; no records in [facility]) and hypothyroidism patient was in her usual state of health until 6 days ago when she developed general malaise and intermittent shortness of breath with exertion. Symptoms gradually worsen and she went to see a provider in urgent care facility who diagnosed her with influenza. Patient has been compliant with medication but despite best efforts symptoms continue to worsen in the emergency department patient is reaching appropriate oxygen saturation on room air.. Chest radiograph was obtained. There is no cardiopulmonary abnormalities compared to radiograph on 19 November however there is low lung volumes and bibasilar atelectasis. Otherwise patient is afebrile hemodynamically stable. Of note patient is chronically on minocycline. She is unable to tell me what diagnosis she carries but states that she has "low-grade infections". Past Medical/Surgical History Medical Problems: (1) Atrial fibrillation (2) CHF (congestive heart failure) (3) Chronic anticoagulation (4) Chronic fatigue syndrome (5) Influenza (6) Rapid atrial fibrillation Family History No pertinent family history Social History Smoking Status: Never Smoker Drug Use: none Marital Status: single Occupational Status: retired Allergies Coded Allergies: Codeine (Verified Allergy, Severe, GI SYMPTOMS, 11/21/17) Home Medications Scheduled Azithromycin (Zithromax), 250 MG PO DAILY Benzonatate (Tessalon Perles), 100 MG PO TID Carvedilol (Coreg), 6.25 MG PO BID Furosemide (Lasix), 40 MG PO BID Levothyroxine Sodium (Synthroid), 112 MCG PO DAILY Lisinopril (Prinivil), 40 MG PO DAILY Melatonin (Melatonin), 5-10 MG PO HS Metronidazole (Flagyl), 500 MG PO UD Minocycline (Minocin), 200 MG PO Q12 Oseltamivir (Tamiflu), 75 MG PO BID Rivaroxaban (Xarelto), 20 MG PO DAILY Tinidazole (Tindamax), 500 MG PO UD Zolpidem Tartrate (Zolpidem Tartrate), 10 MG PO HS Review of Systems Constitutional: + fatigue, No fever, No chills, No sweats, No weight loss, No weakness, No problem reported Eyes: No worsening of vision, No eye pain, No redness, No discharge, No diplopia, No problem reported ENT: No hearing loss, No unusual epistaxis, No nasal symptoms, No sore throat, No tinnitus, No dental problems, No trouble swallowing, No problem reported Respiratory: + cough, + shortness of breath, No sputum, No wheezing, No dyspnea on exertion, No dyspnea at rest, No hemoptysis, No problem reported Cardiovascular: No chest pain, No orthopnea, No PND, No edema, No claudication , No palpitations, No problem reported Abdomen: No pain, No nausea, No vomiting, No diarrhea, No constipation, No GI bleeding, No problem reported Musculoskeletal: No joint pain, No muscle pain, No swelling, No calf pain, No problem reported Neurologic: No memory loss, No paralysis, No weakness, No numbness/tingling, No vertigo, No balance problems, No problem reported Endocrine: No fatigue, No excessive thirst, No excessive urination, No problem reported Physical Exam Vital Signs Date Time Temp Pulse Resp B/P (MAP) Pulse Ox O2 Delivery O2 Flow Rate FiO2 11/21/17 15:45 100 15 139/98 100 Room Air 11/21/17 14:45 98 18 117/84 100 Room Air 11/21/17 13:27 105 11/21/17 13:25 36.6 97 20 120/77 100 Room Air General Appearance: no apparent distress Head: normocephalic, atraumatic Eyes: normal inspection, PERRL, EOMI ENT: normal ENT inspection Neck: supple, no adenopathy, no JVD Respiratory/Chest: chest non-tender, + pertinent finding (Bases with diminished breath sounds but bilateral apex are clear, no evidence of crackles or wheezes) Cardiovascular: no gallop, no JVD, no murmur, + tachycardia, + irregularly irregular Abdomen/GI: normal bowel sounds, non tender, soft Back: no CVA tenderness Extremities/Musculoskelatal: normal inspection, no calf tenderness, no pedal edema 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, alert, normal mood/affect Diagnostics Laboratory Results Results Past 24 Hours Test 11/21/17 15:30 Range/Units White Blood Count 6.13 4.8-10.8 K/uL Red Blood Count 4.22 4.2-5.4 M/uL Hemoglobin 14.0 12.0-16.0 g/dL Hematocrit 39.0 37-47 % Mean Corpuscular Volume 92.4 80-100 fL Mean Corpuscular Hemoglobin 33.2 25-34 pg Mean Corpuscular Hemoglobin Concent 35.9 32-36 g/dl Platelet Count 230 130-400 K/uL Mean Platelet Volume 10.3 7.4-10.4 fL Neutrophils (%) (Auto) 63.5 % Lymphocytes (%) (Auto) 26.6 % Monocytes (%) (Auto) 9.3 % Eosinophils (%) (Auto) 0.2 % Basophils (%) (Auto) 0.2 % Neutrophils # (Auto) 3.90 1.4-6.5 K/uL Lymphocytes # (Auto) 1.63 1.2-3.4 K/uL Monocytes # (Auto) 0.57 0.11-0.59 K/uL Eosinophils # (Auto) 0.01 0-0.5 K/uL Basophils # (Auto) 0.01 0-0.2 K/uL RDW Standard Deviation 48.3 36.4-46.3 fL RDW Coefficient of Variation 14.4 11.5-14.5 % Immature Granulocyte % (Auto) 0.2 % Immature Granulocyte # (Auto) 0.01 0.00-0.02 K/uL Prothrombin Time 11.6 9.0-12.0 SECONDS Prothromb Time International Ratio 1.1 0.9-1.1 Activated Partial Thromboplast Time 31.0 21.0-31.0 SECONDS Partial Thromboplastin Ratio 1.2 Sodium Level 132 136-145 mmol/L Potassium Level 3.9 3.5-5.1 mmol/L Chloride Level 98 98-107 mmol/L Carbon Dioxide Level 25 21-32 mmol/L Anion Gap 9.0 3-11 mmol/L Blood Urea Nitrogen 29 7-18 mg/dl Creatinine 1.23 0.60-1.20 mg/dl Est Creatinine Clear Calc Drug Dose 52.1 ml/min Estimated GFR () 51.5 Estimated GFR (Non- 44.4 BUN/Creatinine Ratio 23.7 10-20 Random Glucose 90 70-99 mg/dl Calcium Level 8.5 8.5-10.1 mg/dl Phosphorus Level 3.5 2.5-4.9 mg/dl Magnesium Level 2.2 1.8-2.4 mg/dl Total Bilirubin 0.9 0.2-1 mg/dl Direct Bilirubin 0.3 0-0.2 mg/dl Aspartate Amino Transf (AST/SGOT) 54 15-37 U/L Alanine Aminotransferase (ALT/SGPT) 44 12-78 U/L Alkaline Phosphatase 176 45-117 U/L Total Creatine Kinase 705 26-192 U/L Creatine Kinase MB 3.2 0.5-3.6 ng/ml Creatine Kinase MB Ratio 0.5 0-3.0 Troponin I < 0.015 0-0.045 ng/ml Total Protein 7.9 6.4-8.2 gm/dl Albumin 3.5 3.4-5.0 gm/dl Lipase 167 73-393 U/L Microbiology Results 11/21/17 Blood Culture, Received Pending 11/21/17 Blood Culture, Received Pending Diagnostic Radiology Chest Radiograph SINGLE VIEW CHEST CLINICAL HISTORY: Generalized weakness. FINDINGS: An AP, portable, upright chest radiograph is compared to chest x-ray and chest CT dated 11/19/2017. The heart is top normal for projection. The pulmonary vasculature is noncongested. There are low lung lungs with bibasilar atelectasis. Chronic interstitial thickening is similar to previous. No airspace consolidation or large pleural effusion is identified. No pneumothorax is seen. The skeletal structures are osteopenic. There are healed right-sided rib fractures. IMPRESSION: No acute cardiopulmonary abnormality and no significant change from studies dated 11/19/2017. Impression Assessment and Plan LT 72 /F admitted for influenza infection with worsening symptoms. 1) Influenza infection Continue with oseltamivir scheduled duo nebs and incentive spirometry has been ordered Droplet precautions 2) atrial fibrillation Patient goes into rapid ventricular rate every time she has a coughing spell; she is already on anticoagulation therapy with Xarelto will continue with medication 3) congestive heart failure unspecified No echocardiogram reports in EMR resume carvedilol 6/25 mg PO bid, resume Lasix 40 PO BID resume lisinopril 40 mg PO daily 4) hypothyroidism Stable no active issues Resume levothyroxine 112 mcg p.o. every morning Resuscitation Status VTE Prophylaxis Will order VTE Prophylaxis: Yes
[2017-11-21] MEDS ORDERED: KETOROLAC TROMETHAMINE 30 MG/ML VIAL IV STA (17:37)
[2017-11-21] MEDS: ALBUT/IPRATROP 3MG/0.5MG NEB 3 ML VIAL INH SCH (19:48)
[2017-11-21] MEDS ORDERED: IV FLUIDS COMPLETED PRN (20:00)
[2017-11-21 20:19] VITALS: BP 146/89; PULSE 108; TEMP 36.9; O2SAT 100; Ht 170.2 cm; Wt 100.7 kg
[2017-11-21] MEDS ORDERED: KETOROLAC TROMETHAMINE 15 MG/ML VIAL IV ONE (21:15)
[2017-11-21] MEDS ORDERED: KETOROLAC TROMETHAMINE 15 MG/ML VIAL ONE (21:15)
[2017-11-21] MEDS: ZOLPIDEM TARTRATE 10 MG TAB PO SCH (22:23)
[2017-11-21] MEDS: BENZONATATE 100MG CAP PO SCH (22:25)
[2017-11-21] MEDS: FUROSEMIDE 40 MG TAB PO SCH (22:25)
[2017-11-21] MEDS: CARVEDILOL 6.25 MG TAB PO SCH (22:25)
[2017-11-21 23:30] VITALS: BP 115/75; PULSE 98; TEMP 36.9; O2SAT 99
[2017-11-22] VITALS (9 sets, daily range): BP systolic 97–135; BP diastolic 63–85; PULSE 70–115; TEMP 36.6–36.9; O2SAT 98–100
[2017-11-22] MEDS: LEVOTHYROXINE 112 MCG TAB PO SCH (05:38)
[2017-11-22] MEDS: KETOROLAC TROMETHAMINE 10 MG TAB PO PRN ×3 (05:39→23:07)
[2017-11-22 06:40] LABS: HEMATOCRIT 33.8 % (37-47); HEMOGLOBIN 11.7 g/dL (12.0-16.0); MEAN CELL VOLUME 92.6 fL (80-100); MEAN CORPUSCULAR HEMOGLOBIN 32.1 pg (25-34); MEAN CORPUSCULAR HGB CONC 34.6 g/dl (32-36); MEAN PLATELET VOLUME 10.5 fL (7.4-10.4); PLATELET COUNT 199 K/uL (130-400); RED CELL DISTRIBUTION WIDTH CV 14.1 % (11.5-14.5); RED CELL DISTRIBUTION WIDTH SD 47.5 fL (36.4-46.3); WHITE BLOOD COUNT 3.94 K/uL (4.8-10.8)
[2017-11-22] MEDS: ALBUT/IPRATROP 3MG/0.5MG NEB 3 ML VIAL INH SCH ×4 (06:57→18:59)
[2017-11-22 07:15] LABS: CALCIUM 8.4 mg/dl (8.5-10.1); CREATININE 1.13 mg/dl (0.60-1.20); POTASSIUM 3.6 mmol/L (3.5-5.1)
--- NOTE | 2017-11-22 08:56 | Progress Note ---
Subjective Date of Service: Nov 22, 2017. Subjective Pt evaluation today including: conversation w/ patient, physical exam, chart review, lab review, review of studies, review of inpatient medication list Pain: no pian Voiding: no voiding problems, no incontinence Pt is seen and examined by me. Pt states she feel much better than yesterday. Her energy level improved. pt cough is not as much with yellow greenish mucus w/ o blood. Pt chest is tender when she coughs other becerril denies cp, sob, dizziness , palpitation and loss of consciousness. O2 sat is 98% at RA. Problem List Medical Problems: (1) Dehydration Status: Acute (2) Elevated CK Status: Acute (3) Failure to thrive Status: Acute (4) Generalized weakness Status: Acute (5) Influenza Status: Acute (6) Influenza Status: Acute (7) Rapid atrial fibrillation Status: Acute Review of Systems Constitutional: + fatigue, No fever, No chills, No sweats Respiratory: + cough, + sputum, No wheezing, No shortness of breath, No dyspnea at rest Cardiac: + problem reported (chest tenderness), No chest pain, No edema, No palpitations Abdomen: No pain, No nausea, No vomiting, No diarrhea, No constipation Neurologic: No memory loss, No paralysis Psychiatric: No depression symptoms Endo: No fatigue Medications Medications (Trade) Dose Ordered Sig/Isidro Route Start Time Stop Time Status Last Admin Dose Admin Albuterol/ Ipratropium (Duoneb) 3 ml NOW STAT INH 11/21/17 14:03 11/21/17 14:05 DC 11/21/17 14:44 3 ML Sodium Chloride 500 ml @ 999 mls/hr Q31M STAT IV 11/21/17 14:04 11/21/17 14:34 DC 11/21/17 15:45 999 MLS/HR Sodium Chloride 1,000 ml @ 100 mls/hr Q10H STAT IV 11/21/17 16:46 11/21/17 20:08 DC 11/21/17 17:41 100 MLS/HR Oseltamivir Phosphate (Tamiflu Cap) 75 mg NOW STAT PO 11/21/17 16:54 11/21/17 16:55 DC 11/21/17 17:41 75 MG Ketorolac Tromethamine (Toradol Inj) 30 mg STK-MED ONCE .ROUTE 11/21/17 17:31 11/21/17 17:32 DC 11/21/17 17:42 15 MG Benzonatate (Tessalon Perles Cap) 100 mg TID PO 11/21/17 21:00 12/21/17 20:59 11/21/17 22:25 100 MG Levothyroxine Sodium (Synthroid Tab) 112 mcg DAILYBB PO 11/22/17 06:00 12/22/17 06:59 11/22/17 05:38 112 MCG Albuterol/ Ipratropium (Duoneb) 3 ml QIDR INH 11/21/17 20:00 12/21/17 19:59 11/22/17 06:57 3 ML Ketorolac Tromethamine (Toradol Inj) 15 mg STK-MED ONCE .ROUTE 11/21/17 21:15 11/21/17 21:16 DC 11/21/17 21:18 15 MG Ketorolac Tromethamine (Toradol Tab) 10 mg Q6H PRN PO 11/22/17 02:00 11/27/17 01:59 11/22/17 05:39 10 MG Objective Vital Signs Date Time Temp Pulse Resp B/P (MAP) Pulse Ox O2 Delivery O2 Flow Rate FiO2 11/22/17 07:49 36.9 115 20 135/85 (102) 99 11/22/17 07:15 87 16 100 Room Air 11/22/17 04:00 Room Air 11/22/17 03:43 36.9 99 22 107/68 (81) 100 Room Air 11/22/17 00:00 Room Air 11/21/17 23:30 36.9 98 18 115/75 (88) 99 Room Air 11/21/17 20:19 36.9 108 20 146/89 100 Room Air 11/21/17 19:45 111 20 150/115 99 11/21/17 17:55 105 18 134/75 100 Room Air 11/21/17 15:45 100 15 139/98 100 Room Air 11/21/17 14:45 98 18 117/84 100 Room Air 11/21/17 13:27 105 11/21/17 13:25 36.6 97 20 120/77 100 Room Air Physical Exam General Appearance: no apparent distress Eyes: EOMI Neck: supple Respiratory/Chest: lungs clear, no respiratory distress, no accessory muscle use Cardiovascular: no edema, no JVD, + irregularly irregular Abdomen: normal bowel sounds, soft, no pulsatile mass Extremities: normal range of motion, non-tender, no pedal edema, no calf tenderness Neurologic/Psychiatric: no motor/sensory deficits, alert, normal mood/affect, oriented x 3 Skin: no rash Laboratory Results Last 24 Hours Test 11/21/17 15:30 11/21/17 15:42 11/22/17 00:00 11/22/17 06:27 White Blood Count 6.13 K/uL 3.94 K/uL Red Blood Count 4.22 M/uL 3.65 M/uL Hemoglobin 14.0 g/dL 11.7 g/dL Hematocrit 39.0 % 33.8 % Mean Corpuscular Volume 92.4 fL 92.6 fL Mean Corpuscular Hemoglobin 33.2 pg 32.1 pg Mean Corpuscular Hemoglobin Concent 35.9 g/dl 34.6 g/dl Platelet Count 230 K/uL 199 K/uL Mean Platelet Volume 10.3 fL 10.5 fL Neutrophils (%) (Auto) 63.5 % Lymphocytes (%) (Auto) 26.6 % Monocytes (%) (Auto) 9.3 % Eosinophils (%) (Auto) 0.2 % Basophils (%) (Auto) 0.2 % Neutrophils # (Auto) 3.90 K/uL Lymphocytes # (Auto) 1.63 K/uL Monocytes # (Auto) 0.57 K/uL Eosinophils # (Auto) 0.01 K/uL Basophils # (Auto) 0.01 K/uL RDW Standard Deviation 48.3 fL 47.5 fL RDW Coefficient of Variation 14.4 % 14.1 % Immature Granulocyte % (Auto) 0.2 % Immature Granulocyte # (Auto) 0.01 K/uL Prothrombin Time 11.6 SECONDS Prothromb Time International Ratio 1.1 Activated Partial Thromboplast Time 31.0 SECONDS Partial Thromboplastin Ratio 1.2 Sodium Level 132 mmol/L 130 mmol/L Potassium Level 3.9 mmol/L 3.6 mmol/L Chloride Level 98 mmol/L 97 mmol/L Carbon Dioxide Level 25 mmol/L 23 mmol/L Anion Gap 9.0 mmol/L 10.0 mmol/L Blood Urea Nitrogen 29 mg/dl 27 mg/dl Creatinine 1.23 mg/dl 1.13 mg/dl Est Creatinine Clear Calc Drug Dose 52.1 ml/min 56.5 ml/min Estimated GFR () 51.5 57.0 Estimated GFR (Non- 44.4 49.2 BUN/Creatinine Ratio 23.7 23.9 Random Glucose 90 mg/dl 95 mg/dl Calcium Level 8.5 mg/dl 8.4 mg/dl Phosphorus Level 3.5 mg/dl Magnesium Level 2.2 mg/dl Total Bilirubin 0.9 mg/dl Direct Bilirubin 0.3 mg/dl Aspartate Amino Transf (AST/SGOT) 54 U/L Alanine Aminotransferase (ALT/SGPT) 44 U/L Alkaline Phosphatase 176 U/L Total Creatine Kinase 705 U/L Creatine Kinase MB 3.2 ng/ml Creatine Kinase MB Ratio 0.5 Troponin I < 0.015 ng/ml Total Protein 7.9 gm/dl Albumin 3.5 gm/dl Lipase 167 U/L Hepatitis C Antibody Screen NEG Bedside Lactic Acid Venous 1.25 mmol/L Urine Color DK YELLOW Urine Appearance ERROR Urine pH 5.0 Urine Specific [place] 1.019 Urine Protein NEG Urine Glucose (UA) NEG Urine Ketones NEG Urine Occult Blood NEG Urine Nitrite NEG Urine Bilirubin NEG Urine Urobilinogen NEG Urine Leukocyte Esterase TRACE Urine WBC (Auto) 1-5 /hpf Urine RBC (Auto) 0-4 /hpf Urine Hyaline Casts (Auto) 10-30 /lpf Urine Epithelial Cells (Auto) >30 /lpf Urine Bacteria (Auto) NEG Assessment and Plan LT 72 /F admitted for influenza infection with worsening symptoms. 1) Influenza infection --much better today Continue with oseltamivir continue with duo nebs and incentive spirometry Droplet precautions 2) atrial fibrillation Patient goes into rapid ventricular rate every time she has a coughing spell; she is already on anticoagulation therapy with Xarelto will continue with medication 3) congestive heart failure unspecified No echocardiogram reports in EMR continue carvedilol 6/25 mg PO bid, continue Lasix 40 PO BID continue lisinopril 40 mg PO daily 4) hypothyroidism Stable no active issues Resume levothyroxine 112 mcg p.o. every morning Gi prophylaxis eating DVT prophylaxis xarelto Continued [facility] stay due to: multiple IV medications needed Discharge planning: home
[2017-11-22] MEDS: OSELTAMIVIR PHOSPHATE SUSP 30 MG/5 ML UDP PO SCH ×2 (09:22→20:21)
[2017-11-22] MEDS: CARVEDILOL 6.25 MG TAB PO SCH ×2 (09:22→20:11)
[2017-11-22] MEDS: FUROSEMIDE 40 MG TAB PO SCH ×2 (09:22→17:02)
[2017-11-22] MEDS: LISINOPRIL 40 MG TAB PO SCH (09:23)
[2017-11-22] MEDS: BENZONATATE 100MG CAP PO SCH ×3 (09:23→20:11)
[2017-11-22] MEDS ORDERED: MoRPHine SULFATE 2 MG/ML CARP ONE (14:06)
[2017-11-22] MEDS ORDERED: NURSING VERBAL MED ORDER ONE (14:15)
[2017-11-22] MEDS ORDERED: MoRPHine SULFATE 2 MG/ML CARP IV ONE (14:15)
[2017-11-22] MEDS: RIVAROXABAN 20 MG TAB PO SCH (17:02)
[2017-11-22] MEDS: ZOLPIDEM TARTRATE 10 MG TAB PO SCH (20:21)
[2017-11-22] MEDS ORDERED: ALUMINUM/MAGNESIUM SUSP 30 ML UDC PO STA (23:43)
[2017-11-22] MEDS ORDERED: RANITIDINE HCL 150 MG TAB PO ONE (23:45)
[2017-11-23] VITALS (11 sets, daily range): BP systolic 90–113; BP diastolic 50–72; PULSE 68–104; TEMP 36.7–37.4; O2SAT 98–100
[2017-11-23] MEDS ORDERED: LIDODERM (LIDOCAINE) PATCH 5% TD ONE (02:00)
[2017-11-23] MEDS: ALBUT/IPRATROP 3MG/0.5MG NEB 3 ML VIAL INH SCH ×5 (07:12→21:00)
[2017-11-23] MEDS: OSELTAMIVIR PHOSPHATE SUSP 30 MG/5 ML UDP PO SCH ×2 (08:00→19:25)
[2017-11-23] MEDS: LEVOTHYROXINE 112 MCG TAB PO SCH (08:00)
[2017-11-23] MEDS: BENZONATATE 100MG CAP PO SCH ×3 (08:00→19:57)
[2017-11-23] MEDS: RANITIDINE HCL 150 MG TAB PO SCH ×2 (11:24→19:57)
[2017-11-23] MEDS: CARVEDILOL 6.25 MG TAB PO SCH ×2 (11:25→19:57)
[2017-11-23] MEDS: FUROSEMIDE 40 MG TAB PO SCH ×2 (11:26→18:17)
[2017-11-23] MEDS: LISINOPRIL 40 MG TAB PO SCH (11:26)
[2017-11-23] MEDS ORDERED: NURSING VERBAL MED ORDER ONE ×2 (11:45→12:30)
[2017-11-23] MEDS ORDERED: ALUMINUM/MAGNESIUM SUSP 30 ML UDC ONE (11:46)
--- NOTE | 2017-11-23 16:49 | Progress Note ---
Subjective Date of Service: Nov 23, 2017. Subjective Pt evaluation today including: conversation w/ patient Pt feels she is improving, but still with a lot of congestion that is hard to bring up at times. She had a lot of reflux last night and feels like it might be related to tamiflu. Pt denies fever, SOB, chest pain, abd pain, n/v/c/d, LE pain or swelling. No hx of reflux prior to this but it is helped with maalox and zantac. Problem List Medical Problems: (1) Dehydration Status: Acute (2) Elevated CK Status: Acute (3) Failure to thrive Status: Acute (4) Generalized weakness Status: Acute (5) Influenza Status: Acute (6) Influenza Status: Acute (7) Rapid atrial fibrillation Status: Acute Review of Systems All Other Systems: Reviewed and Negative Objective Vital Signs Date Time Temp Pulse Resp B/P (MAP) Pulse Ox O2 Delivery O2 Flow Rate FiO2 11/23/17 15:44 37.4 103 18 93/62 (72) 100 Room Air 11/23/17 09:31 100 Room Air 11/23/17 08:30 100 Room Air 11/23/17 08:13 36.8 95 18 113/72 (86) 100 11/23/17 00:20 37.0 93 20 96/67 (77) 100 Room Air 11/23/17 00:00 Room Air 11/22/17 20:00 Room Air 11/22/17 19:02 70 16 98 Room Air Physical Exam General Appearance: WD/WN, no apparent distress Eyes: normal inspection, sclerae normal Respiratory/Chest: no respiratory distress, + wheezing (scant) Cardiovascular: regular rate, rhythm, no edema Abdomen: non tender, soft Extremities: non-tender, no pedal edema Neurologic/Psychiatric: alert, normal mood/affect, oriented x 3 Skin: normal color, warm/dry Assessment and Plan LT 72 /F admitted for influenza infection with worsening symptoms. Flu, ongoing improvement Flu A + at Urgent Care Continue with oseltamivir if pt will take it, however she is outside of the window for tx at this point and missing doses may not necessarily matter at this point continue with duo nebs and incentive spirometry Droplet precautions Adding nebs and mucomyst BID to help further with congestion Afib Patient goes into rapid ventricular rate every time she has a coughing spell; she is already on anticoagulation therapy with Xarelto will continue with medication CHF, not in exacerbation No echocardiogram reports in EMR continue carvedilol 6/25 mg PO bid, continue Lasix 40 PO BID continue lisinopril 40 mg PO daily hypothyroidism Stable no active issues Resume levothyroxine 112 mcg p.o. every morning GI proph, add maalox and zantac for reflux issues DVT prophylaxis xarelto Continued [facility] stay due to: multiple IV medications needed Discharge planning: home
[2017-11-23] MEDS: RIVAROXABAN 20 MG TAB PO SCH (17:19)
[2017-11-23] MEDS: ALUMINUM/MAGNESIUM SUSP 30 ML UDC PO PRN (18:51)
[2017-11-23] MEDS: ACETYLCYSTEINE 20% INHAL SOLN ***DISPENSED BY RESP. INH SCH ×2 (19:45→21:00)
[2017-11-23] MEDS: KETOROLAC TROMETHAMINE 10 MG TAB PO PRN (20:01)
[2017-11-23] MEDS: ZOLPIDEM TARTRATE 10 MG TAB PO SCH (20:48)
[2017-11-24] VITALS (8 sets, daily range): BP systolic 89–106; BP diastolic 57–72; PULSE 82–94; TEMP 36.6–36.9; O2SAT 99–100
[2017-11-24] MEDS: KETOROLAC TROMETHAMINE 10 MG TAB PO PRN ×3 (03:47→16:27)
[2017-11-24] MEDS: LEVOTHYROXINE 112 MCG TAB PO SCH (04:45)
[2017-11-24] MEDS: ALBUT/IPRATROP 3MG/0.5MG NEB 3 ML VIAL INH SCH ×2 (07:02→19:14)
[2017-11-24] MEDS: ACETYLCYSTEINE 20% INHAL SOLN ***DISPENSED BY RESP. INH SCH ×2 (07:02→19:14)
[2017-11-24] MEDS: OSELTAMIVIR PHOSPHATE SUSP 30 MG/5 ML UDP PO SCH ×2 (08:00→20:00)
[2017-11-24] MEDS: RANITIDINE HCL 150 MG TAB PO SCH ×2 (08:01→20:19)
[2017-11-24] MEDS: ALUMINUM/MAGNESIUM SUSP 30 ML UDC PO PRN ×3 (08:01→22:31)
[2017-11-24] MEDS: LISINOPRIL 40 MG TAB PO SCH (08:03)
[2017-11-24] MEDS: CARVEDILOL 6.25 MG TAB PO SCH ×2 (08:03→20:00)
[2017-11-24] MEDS: BENZONATATE 100MG CAP PO SCH ×4 (08:04→23:25)
[2017-11-24] MEDS: FUROSEMIDE 40 MG TAB PO SCH ×2 (08:04→16:27)
[2017-11-24] MEDS: LIDODERM (LIDOCAINE) PATCH 5% TD SCH (08:09)
[2017-11-24] MEDS: RIVAROXABAN 20 MG TAB PO SCH (16:27)
--- NOTE | 2017-11-24 17:25 | Progress Note ---
Subjective Date of Service: Nov 24, 2017. Subjective Pt evaluation today including: conversation w/ patient Pt is feeling much improved s/p nebs and mucomyst started yesterday. "Today is the first day I feel like I might live!" She is bringing up more sputum and feels like she is breathing better. No further chest pain. She is still having ambulation issues. She is struggling to get to the bedside commode with assistance. SOB is mostly resolved. Tolerating PO well. Heartburn is better also. Pt denies fever, abd pain, n/v/c/d, LE pain or swelling. Problem List Medical Problems: (1) Dehydration Status: Acute (2) Elevated CK Status: Acute (3) Failure to thrive Status: Acute (4) Generalized weakness Status: Acute (5) Influenza Status: Acute (6) Influenza Status: Acute (7) Rapid atrial fibrillation Status: Acute Review of Systems All Other Systems: Reviewed and Negative Objective Vital Signs Date Time Temp Pulse Resp B/P (MAP) Pulse Ox O2 Delivery O2 Flow Rate FiO2 11/24/17 16:28 93 101/67 (78) 11/24/17 15:33 36.7 84 18 93/63 (73) 100 Room Air 11/24/17 15:25 Room Air 11/24/17 08:30 Room Air 11/24/17 08:17 36.6 82 18 106/72 (83) 100 11/24/17 07:02 91 16 99 Room Air 11/24/17 00:00 Room Air 11/23/17 23:36 36.7 84 20 90/50 (63) 98 Room Air 11/23/17 21:00 77 16 99 Room Air 21 11/23/17 20:00 Room Air 11/23/17 19:54 104 109/72 (84) 99 Room Air 11/23/17 18:13 68 16 98/64 (75) Physical Exam Comments: General Appearance: WD/WN, no apparent distress Eyes: normal inspection, sclerae normal Respiratory/Chest: no respiratory distress, wheezing--resolved Cardiovascular: regular rate, rhythm, no edema Abdomen: non tender, soft Extremities: non-tender, no pedal edema Neurologic/Psychiatric: alert, normal mood/affect, oriented x 3 Skin: normal color, warm/dry Assessment and Plan 72 /F admitted for influenza infection with worsening symptoms. Flu, ongoing improvement Flu A + at Urgent Care Continue with oseltamivir if pt will take it, however she is outside of the window for tx at this point and missing doses may not necessarily matter at this point continue with duo nebs and incentive spirometry Droplet precautions Nebs and mucomyst BID have helped significantly Blood cx neg ??Underlying COPD?? Pt was never a smoker, but both of her parents smoked in the home and many of her relatives smoked around them regularly Will likely need PFTs once acute illness is resolved Afib Patient goes into rapid ventricular rate every time she has a coughing spell; Xarelto as at baseline CHF, not in exacerbation No echocardiogram reports in EMR continue carvedilol 6/25 mg PO bid, continue Lasix 40 PO BID continue lisinopril 40 mg PO daily hypothyroidism Stable no active issues Resume levothyroxine 112 mcg p.o. every morning GI proph, add maalox and zantac for reflux issues DVT prophylaxis xarelto Pt is having significant ambulation issues and lives at home alone PT/OT pending Continued [facility] stay due to: multiple IV medications needed Discharge planning: home
[2017-11-24] MEDS: ZOLPIDEM TARTRATE 10 MG TAB PO SCH (21:00)
[2017-11-25] VITALS (12 sets, daily range): BP systolic 81–134; BP diastolic 40–82; PULSE 76–110; TEMP 36.6–37.4; O2SAT 95–100
[2017-11-25] MEDS: LEVOTHYROXINE 112 MCG TAB PO SCH (06:43)
[2017-11-25] MEDS: RANITIDINE HCL 150 MG TAB PO SCH ×2 (06:43→20:03)
[2017-11-25] MEDS: ACETYLCYSTEINE 20% INHAL SOLN ***DISPENSED BY RESP. INH SCH ×2 (06:52→18:52)
[2017-11-25] MEDS: ALBUT/IPRATROP 3MG/0.5MG NEB 3 ML VIAL INH SCH ×2 (06:52→18:50)
[2017-11-25] MEDS: CARVEDILOL 6.25 MG TAB PO SCH ×2 (08:00→20:03)
[2017-11-25] MEDS: OSELTAMIVIR PHOSPHATE SUSP 30 MG/5 ML UDP PO SCH ×2 (08:00→19:59)
[2017-11-25] MEDS: BENZONATATE 100MG CAP PO SCH ×3 (08:00→20:03)
[2017-11-25] MEDS: LIDODERM (LIDOCAINE) PATCH 5% TD SCH (08:01)
[2017-11-25] MEDS: FUROSEMIDE 40 MG TAB PO SCH ×2 (08:01→17:02)
[2017-11-25] MEDS: LISINOPRIL 40 MG TAB PO SCH (08:02)
[2017-11-25] MEDS: POLYETHYLENE (MIRALAX) 17 GM PACK PO SCH (08:15)
[2017-11-25 08:26] LABS: BASO % 0.3 %; BASO ABS # 0.02 K/uL (0-0.2); EOS ABS # 0.06 K/uL (0-0.5); HEMATOCRIT 31.2 % (37-47); HEMOGLOBIN 11.2 g/dL (12.0-16.0); IG# 0.02 K/uL (0.00-0.02); LYMPH % 28.2 %; LYMPH ABS # 1.64 K/uL (1.2-3.4); MEAN CELL VOLUME 93.4 fL (80-100); MEAN CORPUSCULAR HEMOGLOBIN 33.5 pg (25-34); MEAN CORPUSCULAR HGB CONC 35.9 g/dl (32-36); MONO % 10.3 %; NEUT % 59.9 %; NEUT ABS # 3.48 K/uL (1.4-6.5); PLATELET COUNT 272 K/uL (130-400); RED CELL DISTRIBUTION WIDTH CV 14.3 % (11.5-14.5); RED CELL DISTRIBUTION WIDTH SD 48.8 fL (36.4-46.3); WHITE BLOOD COUNT 5.82 K/uL (4.8-10.8)
[2017-11-25 08:51] LABS: ALBUMIN 2.9 gm/dl (3.4-5.0); CALCIUM 8.2 mg/dl (8.5-10.1); CREATININE 1.02 mg/dl (0.60-1.20); POTASSIUM 3.6 mmol/L (3.5-5.1)
[2017-11-25 08:54] LABS: TOTAL PROTEIN 6.6 gm/dl (6.4-8.2)
[2017-11-25] MEDS: SENNA 8.6 MG TAB PO SCH (10:35)
[2017-11-25] MEDS: ALUMINUM/MAGNESIUM SUSP 30 ML UDC PO PRN ×2 (16:55→20:59)
[2017-11-25] MEDS: RIVAROXABAN 20 MG TAB PO SCH (17:02)
--- NOTE | 2017-11-25 19:14 | Progress Note ---
Subjective Date of Service: Nov 25, 2017. Subjective Pt evaluation today including: conversation w/ patient, physical exam, chart review, lab review, review of inpatient medication list Pain: none reported PO Intake: normal/improved Voiding: no voiding problems pt's main complaints - 1. dyspnea on exertion - modestly worse than her chronic HARO 2. extreme weakness/fatigue with walking her breathing IS improved with use of albuterol/mucomyst reports her EF is "38%" based on prior studies - done in [place]? she confirms she lives alone in an apartment in [place] and typically goes to the grocery store independently she has only walked <20 feet while hospitalized Problem List Medical Problems: (1) Dehydration Status: Acute (2) Elevated CK Status: Acute (3) Failure to thrive Status: Acute (4) Generalized weakness Status: Acute (5) Influenza Status: Acute (6) Influenza Status: Acute (7) Rapid atrial fibrillation Status: Acute Review of Systems Constitutional: No fever, No chills Respiratory: + cough, + dyspnea on exertion, No sputum, No wheezing, No dyspnea at rest Cardiac: No chest pain, No orthopnea, No edema Abdomen: No pain Neurologic: + problem reported (dizziness - chronic - with walking ( lightheaded at times)), No vertigo Objective Vital Signs Date Time Temp Pulse Resp B/P (MAP) Pulse Ox O2 Delivery O2 Flow Rate FiO2 11/25/17 18:52 96 16 98 Room Air 11/25/17 15:30 Room Air 11/25/17 15:21 36.8 92 20 98/64 (75) 100 Room Air 11/25/17 12:19 102 113/75 (88) 100 Room Air 11/25/17 12:10 89 100 11/25/17 11:10 95 105/72 (83) 11/25/17 11:10 106 104/69 (81) 11/25/17 11:09 83 110/71 (84) 11/25/17 09:00 98 Room Air 11/25/17 08:00 Room Air 11/25/17 07:58 36.6 93 12 116/80 (92) 98 Room Air 11/25/17 06:53 76 12 98 Room Air 11/25/17 00:00 Room Air 11/24/17 23:26 91 101/68 (79) 11/24/17 23:15 36.9 94 16 89/57 (68) 100 Room Air 11/24/17 20:00 36.9 11/24/17 20:00 Room Air 11/24/17 19:14 88 16 99 Room Air Physical Exam General Appearance: no apparent distress ENT: pharynx normal Neck: no JVD Respiratory/Chest: lungs clear, no respiratory distress, no accessory muscle use Cardiovascular: regular rate, rhythm, no gallop, no murmur Abdomen: normal bowel sounds, non tender, soft, no organomegaly Extremities: no pedal edema Neurologic/Psychiatric: no motor/sensory deficits, alert, oriented x 3 Skin: no rash Laboratory Results Last 24 Hours Test 11/25/17 08:14 White Blood Count 5.82 K/uL Red Blood Count 3.34 M/uL Hemoglobin 11.2 g/dL Hematocrit 31.2 % Mean Corpuscular Volume 93.4 fL Mean Corpuscular Hemoglobin 33.5 pg Mean Corpuscular Hemoglobin Concent 35.9 g/dl Platelet Count 272 K/uL Mean Platelet Volume 10.0 fL Neutrophils (%) (Auto) 59.9 % Lymphocytes (%) (Auto) 28.2 % Monocytes (%) (Auto) 10.3 % Eosinophils (%) (Auto) 1.0 % Basophils (%) (Auto) 0.3 % Neutrophils # (Auto) 3.48 K/uL Lymphocytes # (Auto) 1.64 K/uL Monocytes # (Auto) 0.60 K/uL Eosinophils # (Auto) 0.06 K/uL Basophils # (Auto) 0.02 K/uL RDW Standard Deviation 48.8 fL RDW Coefficient of Variation 14.3 % Immature Granulocyte % (Auto) 0.3 % Immature Granulocyte # (Auto) 0.02 K/uL Sodium Level 132 mmol/L Potassium Level 3.6 mmol/L Chloride Level 97 mmol/L Carbon Dioxide Level 28 mmol/L Anion Gap 7.0 mmol/L Blood Urea Nitrogen 28 mg/dl Creatinine 1.02 mg/dl Est Creatinine Clear Calc Drug Dose 62.6 ml/min Estimated GFR () 64.5 Estimated GFR (Non- 55.7 BUN/Creatinine Ratio 27.7 Random Glucose 98 mg/dl Calcium Level 8.2 mg/dl Total Bilirubin 0.9 mg/dl Aspartate Amino Transf (AST/SGOT) 40 U/L Alanine Aminotransferase (ALT/SGPT) 39 U/L Alkaline Phosphatase 158 U/L Total Creatine Kinase 551 U/L Total Protein 6.6 gm/dl Albumin 2.9 gm/dl Globulin 3.7 gm/dl Albumin/Globulin Ratio 0.8 Assessment and Plan 72yo female - 1. influenza A infection - initial dx made on 11/19/17. resolved. She has been refusing her tamiflu. I doubt she has any lingering flu symptoms and is likely not contagious at this time. 2. acute bronchitis 2nd to above - resolved; lung exam wnl today. Cont nebs for symptomatic relief. 3. atrial fibrillation - by exam today was in NSR; continue xarelto & BB. 4. h/o chronic systolic CHF - appears compensated. Cont BB, lasix, EDDA. 5. chronic dizziness - etiology? check orthostatics check Vitamin B12 level 6. hypothyroidism - TSH checked late October wnl; cont same synthroid dose. 7. hyponatremia - mild - likely 2nd to chronic lasix use. 8. chronic minocycline use - uncertain reason. 9. abnormal LFTs - due to influenza/viral induced? rechecked today and they are improving. recheck in 2-3 days for stability. 10. rhabdomyolysis - likely contributing to weakness - uncertain etiology but could be due to the flu. repeat CPK in 2-3 days for normalization. 11. deconditioning - PT/OT have seen - may need rehab as she lives alone and is quite weak. will see how she progresses. 12. constipation - senna/miralax ordered. from medical standpoint she is close for discharge. Continued [facility] stay due to: ambulation difficulties Discharge planning: uncertain
[2017-11-25] MEDS: ZOLPIDEM TARTRATE 10 MG TAB PO SCH (19:59)
[2017-11-26 06:46] LABS: CALCIUM 8.4 mg/dl (8.5-10.1); CREATININE 1.09 mg/dl (0.60-1.20); POTASSIUM 3.8 mmol/L (3.5-5.1)
[2017-11-26] MEDS: RANITIDINE HCL 150 MG TAB PO SCH ×2 (06:47→20:12)
[2017-11-26] MEDS: LEVOTHYROXINE 112 MCG TAB PO SCH (06:47)
[2017-11-26] MEDS: ALUMINUM/MAGNESIUM SUSP 30 ML UDC PO PRN (06:47)
[2017-11-26 07:05] VITALS: BP 108/73; PULSE 82; TEMP 36.8; O2SAT 100
[2017-11-26 07:10] VITALS: PULSE 96; O2SAT 97
[2017-11-26] MEDS: ACETYLCYSTEINE 20% INHAL SOLN ***DISPENSED BY RESP. INH SCH ×2 (07:10→19:06)
[2017-11-26] MEDS: ALBUT/IPRATROP 3MG/0.5MG NEB 3 ML VIAL INH SCH ×2 (07:10→19:06)
[2017-11-26] MEDS: LISINOPRIL 40 MG TAB PO SCH (07:59)
[2017-11-26] MEDS: CARVEDILOL 6.25 MG TAB PO SCH ×2 (07:59→20:00)
[2017-11-26] MEDS: SENNA 8.6 MG TAB PO SCH (08:00)
[2017-11-26] MEDS: LIDODERM (LIDOCAINE) PATCH 5% TD SCH (08:00)
[2017-11-26] MEDS: BENZONATATE 100MG CAP PO SCH ×3 (08:00→20:12)
[2017-11-26] MEDS: OSELTAMIVIR PHOSPHATE SUSP 30 MG/5 ML UDP PO SCH (08:00)
[2017-11-26] MEDS: POLYETHYLENE (MIRALAX) 17 GM PACK PO SCH (08:00)
[2017-11-26] MEDS: FUROSEMIDE 40 MG TAB PO SCH (08:00)
[2017-11-26 11:12] VITALS: PULSE 97; O2SAT 100
[2017-11-26] MEDS ORDERED: ACETAMINOPHEN 500 MG TAB PO ONE (11:19)
[2017-11-26] MEDS ORDERED: NURSING VERBAL MED ORDER ONE (11:30)
--- NOTE | 2017-11-26 14:07 | ECHOCARDIOGRAM REPORT ---
*NOTICE TO RECEIVING DEMOCRAT AGENCY This information is strictly Confidential and protected under [place] law. [place] law prohibits you from making any further disclosure of this information unless further disclosure is expressly permitted by the written consent of the person to whom it pertains or is authorized by law. A general authorization for the release of medical or other information is not sufficient for this purpose. Hospital accepts no responsibility if the information is made available to any other person, INCLUDING THE PATIENT. Interpretation Summary * Name: GARFIELD MCCORMICK Study Date: 11/26/2017 11:24 AM BP: 108/73 mmHg * Patient Location: .4E\S\E415\S\1 HR: 96 * : 1945 (M/d/yyyy) Gender: Female Height: 67 in * Age: 72 yrs Ethnicity: CA Weight: 222 lb * Ordering Physician: Sam Springer * Referring Physician: Self, Referred * Performed By: Rafi Castro RCS * * Reason For Study: CHF * BSA: 2.1 m2 * -- Conclusions -- * 1. Normal left ventricular size with grossly low-normal systolic function. EF 50-55%. No definite regional wall motion abnormalities. Cannot exclude wall motion abnormalities given image quality. No left ventricular hypertrophy. Type 1 diastolic dysfunction. * 2. The left atrium is mildly dilated. * 3. There is mild mitral annular calcification. * 4. Normal estimated right ventricular systolic pressure. * 5. Technically difficult study. * 6. No prior study available for comparison. Procedure Details * A complete two-dimensional transthoracic echocardiogram was performed (2D, M-mode, Doppler and color flow Doppler). Left Ventricle * Normal left ventricular size with grossly low-normal systolic function. EF 50-55%. No definite regional wall motion abnormalities. Cannot exclude wall motion abnormalities given image quality. No left ventricular hypertrophy. Type 1 diastolic dysfunction. Right Ventricle * The right ventricle is grossly normal size. * The right ventricular systolic function is normal as assessed by tricuspid annular plane systolic excursion (TAPSE) (normal >1.5 cm). Atria * The left atrium is mildly dilated. * Right atrial size is normal. * There is no evidence of atrial septal defect, but resolution does not allow assessment for a patent foramen ovale. Mitral Valve * There is mild mitral annular calcification. * There is no mitral valve stenosis. * There is trace mitral regurgitation. Tricuspid Valve * The tricuspid valve is not well visualized, but is grossly normal. * There is no tricuspid stenosis. * There is trace tricuspid regurgitation. Aortic Valve * The aortic valve is trileaflet. * No hemodynamically significant valvular aortic stenosis. * No aortic regurgitation is present. Pulmonic Valve * The pulmonary valve is inadequately visualized, but the Doppler data is adequate for interpretation. * There is no pulmonic valvular stenosis. * Trace pulmonic valvular regurgitation. Great Vessels * The aortic root is normal size. * Ascending aorta of normal dimension Pericardium/Pleural * There is no pericardial effusion. Great Vessels * Normal inferior vena cava size and collapsability with sniff indicates a normal right atrial pressure of 3 mmHg MMode 2D Measurements and Calculations IVSd 10 cm IVSs 1.2 cm LVIDd 4.6 cm LVIDs 3.3 cm LVPWd 1.0 cm LVPWs 1.2 cm IVS/LVPW 0.95 FS 29.0 % EDV(Teich) 99.3 ml ESV(Teich) 44.0 ml EF(Teich) 55.7 % EDV(cubed) 99.9 ml ESV(cubed) 35.8 ml EF(cubed) 64.2 % % IVS thick 20.4 % % LVPW thick 18.2 % LV mass(C)d 165.7 grams LV mass(C)dI 78.4 grams/m\S\2 LV mass(C)s 127.4 grams LV mass(C)sI 60.3 grams/m\S\2 SV(Teich) 55.4 ml SI(Teich) 26.2 ml/m\S\2 SV(cubed) 64.1 ml SI(cubed) 30.3 ml/m\S\2 Ao root diam 3.1 cm Ao root area 7.7 cm\S\2 ACS 2.1 cm LA dimension 4.5 cm asc Aorta Diam 3.0 cm LA/Ao 1.4 LVAd ap2 33.3 cm\S\2 LVLd ap2 8.0 cm EDV(MOD-sp2) 110.7 ml EDV(sp2-el) 118.8 ml LVAs ap2 20.0 cm\S\2 LVLs ap2 6.5 cm ESV(MOD-sp2) 51.7 ml ESV(sp2-el) 52.6 ml EF(MOD-sp2) 53.3 % EF(sp2-el) 55.7 % SV(MOD-sp2) 59.0 ml SI(MOD-sp2) 27.9 ml/m\S\2 SV(sp2-el) 66.1 ml SI(sp2-el) 31.3 ml/m\S\2 Doppler Measurements and Calculations MV E max mabel 75.7 cm/sec MV A max mabel 124.9 cm/sec MV E/A 0.61 MV P1/2t max mabel 87.6 cm/sec MV P1/2t 59.0 msec MVA(P1/2t) 3.7 cm\S\2 MV dec slope 434.8 cm/sec\S\2 MV dec time 0.16 sec Ao V2 max 140.8 cm/sec Ao max PG 7.9 mmHg Ao max PG (full) 5.0 mmHg LV V1 max PG 3.0 mmHg LV V1 max 86.1 cm/sec PA V2 max 105.8 cm/sec PA max PG 4.5 mmHg PI max mabel 168.9 cm/sec PI max PG 11.4 mmHg PI dec slope 167.2 cm/sec\S\2 PI P1/2t 295.9 msec TR max mabel 163.3 cm/sec RVSP(TR) 13.7 mmHg RAP systole 3.0 mmHg
[2017-11-26 14:22] VITALS: BP 98/62; PULSE 89; TEMP 36.9; O2SAT 100
--- NOTE | 2017-11-26 15:56 | DIAGNOSTIC IMAGING REPORT ---
LEFT RIBS INCLUDING PA ERECT CHEST CLINICAL HISTORY: Left-sided rib pain. Trauma. COMPARISON STUDY: Chest x-ray dated 11/21/2017 FINDINGS: The erect chest reveals no pneumothorax. There is no focal pulmonary consolidation. There are old right-sided rib fractures. Submental views of the left ribs reveal no acute fractures. Deformities of the sixth and seventh ribs are likely old. IMPRESSION: 1. Subtle deformities of the left sixth and seventh ribs, likely old. Please correlate with the patient's site of pain 2. No evidence of pneumothorax. Electronically signed by: Eros Crow M.D. 11/26/2017 3:55 PM Dictated Date/Time: 11/26/2017 3:53 PM
[2017-11-26] MEDS ORDERED: NEBMAC (15:59)
[2017-11-26 16:36] LABS: HEMATOCRIT 29.7 % (37-47); HEMOGLOBIN 10.1 g/dL (12.0-16.0); MEAN CELL VOLUME 94.9 fL (80-100); MEAN CORPUSCULAR HEMOGLOBIN 32.3 pg (25-34); MEAN PLATELET VOLUME 9.6 fL (7.4-10.4); PLATELET COUNT 295 K/uL (130-400); RED CELL DISTRIBUTION WIDTH CV 14.6 % (11.5-14.5); RED CELL DISTRIBUTION WIDTH SD 49.6 fL (36.4-46.3); WHITE BLOOD COUNT 6.08 K/uL (4.8-10.8)
[2017-11-26 17:11] LABS: ALBUMIN 2.7 gm/dl (3.4-5.0); TOTAL PROTEIN 6.4 gm/dl (6.4-8.2)
--- NOTE | 2017-11-26 18:09 | DIAGNOSTIC IMAGING REPORT ---
ABD/PELVIS NO IV OR ORAL CONT CLINICAL HISTORY: 72 years-old Female presenting with b/l flank bruising; acute anemia; eval retroperitoneal hematoma. TECHNIQUE: Multidetector CT of the abdomen and pelvis was performed without the use of intravenous contrast. IV contrast: None. A dose lowering technique was used consistent with the principles of ALARA (as low as reasonably achievable). COMPARISON: None. CT DOSE (mGy.cm): The estimated cumulative dose is 1467.54 mGy.cm. FINDINGS: [employer] topogram: Unremarkable. Lung bases: Solid 4 mm pulmonary nodule in the left lower lobe (series 3 image 56). Normal heart size. Coronary artery calcification. No pericardial or pleural effusion. Liver: Normal morphology. Density consistent with hepatic steatosis. Biliary: No gross biliary ductal dilatation allowing for noncontrast technique. Gallbladder decompressed. Pancreas: Moderate parenchymal atrophy. Spleen: Normal noncontrast appearance. Adrenal glands: Nodular thickening of the adrenal glands. Focal 14 mm nodule in the right adrenal gland consistent with a benign adenoma by density. Kidneys and ureters: Normal noncontrast appearance. No nephrolithiasis. No hydronephrosis. Normal ureters. Bladder: Normal. Pelvic organs: Normal noncontrast appearance. Bowel: Normal appendix. No bowel obstruction. Gastric distention with ingested material and gas. No evidence of outlet obstruction. Fecal material in several loops of distal small bowel suggest delayed transit. Peritoneal cavity: No free fluid or intraperitoneal gas. No retroperitoneal hematoma. Lymph nodes: No gross lymphadenopathy allowing for noncontrast technique. Vasculature: Atherosclerosis of the normal caliber abdominal aorta. Abdominal wall: Fat-containing left inguinal hernia. Diastases of the abdominis rectus. Partially visualized left breast implant. Nonspecific subcutaneous infiltration in the lumbar region and bilateral flanks. No significant skin thickening. Musculoskeletal: Osteitis pubis suggested. Degenerative changes of the sacroiliac joints and spine. IMPRESSION: 1. No evidence of retroperitoneal hematoma or evidence of acute intra-abdominal hemorrhage. 2. Nonspecific subcutaneous infiltration in the bilateral flanks and lumbar region. This could represent edema or contusions. 3. Hepatic steatosis. 4. 14 mm right adrenal benign adenoma. Suspected smaller benign adenomas in the left adrenal gland. 5. Solid 4 mm pulmonary nodule in the left lower lobe. Follow-up per Deandre Society 2017 recommendations below. Please refer to below summary of Fleischner Society 2017 recommendations for follow-up of incidental CT nodules (H Marito et al. Guidelines for management of incidental pulmonary nodules detected on CT images: From the Fleischner Society 2017. Radiology 2017; 284: 228-243.) SOLID NODULES Single nodule; size < 6 mm * Low risk patients: No routine follow-up * High risk patients: Optional CT at 12 months Single nodule; size 6-8 mm * Low risk patients: CT at 6-12 months, then consider CT at 18-24 months * High risk patients: CT at 6-12 months, then at 18-24 months Single nodule; size > 8 mm * Either low or high risk patients: Considered CT at 3 months, PET/CT, or tissue sampling Multiple nodules; size < 6 mm * Low risk patients: No routine follow up * High risk patients: Optional CT at 12 months Multiple nodules; size 6-8 mm * Low risk patients: CT at 3-6 months, then consider CT at 18-24 months * High risk patients: CT at 3-6 months, then at 18-24 months Multiple nodules; size > 8 mm * Low risk patients: CT at 3-6 months, then consider at 18-24 months * High risk patients: CT at 3-6 months, then at 18-24 months SUBSOLID NODULES Single ground-glass nodule * Nodule size < 6 mm: No routine follow-up * Nodule size > or = 6 mm: CT at 6-12 months to confirm persistence, then CT every 2 years until 5 years Single part-solid nodule * Nodule size < 6 mm: No routine follow-up * Nodules size > or = 6 mm: CT at 3-6 months to confirm persistence. If unchanged and solid component remains < 6 mm, annual CT should be performed for 5 years Multiple nodules * Nodule size < 6 mm: CT at 3-6 months. If stable, consider CT at 2 and 4 years. * Nodules size > or = 6 mm: CT at 3-6 months. Subsequent management based on the most suspicious nodule(s) NOTE: These guidelines apply to incidental nodules. These guidelines do not apply to patients younger than 35 years, immunocompromised patients, or patients with cancer. * Low risk patients: Minimal or absent history of smoking and/or other known risk factors * High risk patients: History of smoking, exposure to other carcinogens, emphysema, fibrosis, upper lobe location, family history of lung cancer, etc. If a nodule up to 8 mm is partly solid or is ground glass, further follow-up is required after 24 months to exclude possible slow growing adenocarcinoma. Electronically signed by: Ted Lee M.D. 11/26/2017 6:08 PM Dictated Date/Time: 11/26/2017 6:00 PM
[2017-11-26 19:08] VITALS: PULSE 94; O2SAT 96
--- NOTE | 2017-11-26 19:09 | Progress Note ---
Subjective Date of Service: Nov 26, 2017. Subjective Pt evaluation today including: conversation w/ patient, conversation w/ family (son), physical exam, chart review, lab review, review of studies (echo, CT abd/ pelvis), review of inpatient medication list Pain: mild left-sided rib pain PO Intake: normal Voiding: no voiding problems Pt feels good today. Only complaint is that of left-sided flank/rib discomfort. Cough present but not severe. No dyspnea. Pt agreeable to PT,OT at home. She does confirm she had a fall trying to get to the bathtub prior to admission. Fell on her right side. Problem List Medical Problems: (1) Dehydration Status: Acute (2) Elevated CK Status: Acute (3) Failure to thrive Status: Acute (4) Generalized weakness Status: Acute (5) Influenza Status: Acute (6) Influenza Status: Acute (7) Rapid atrial fibrillation Status: Acute Review of Systems Constitutional: No fever Respiratory: + cough, No shortness of breath, No dyspnea on exertion Cardiac: No chest pain Abdomen: + problem reported (mild bloating), No pain Objective Vital Signs Date Time Temp Pulse Resp B/P (MAP) Pulse Ox O2 Delivery O2 Flow Rate FiO2 11/26/17 16:11 Room Air 11/26/17 14:22 36.9 89 18 98/62 (74) 100 Room Air 11/26/17 11:12 97 16 100 Room Air 11/26/17 08:00 Room Air 11/26/17 07:10 96 16 97 Room Air 11/26/17 07:05 36.8 82 18 108/73 (85) 100 Room Air 11/26/17 00:00 Room Air 11/25/17 23:45 36.9 82 18 94/63 (73) 100 Room Air 101 96/65 (75) 110 81/40 (54) 11/25/17 22:59 37.4 93 18 97/67 (77) 100 Room Air Physical Exam General Appearance: no apparent distress ENT: pharynx normal Neck: no JVD Respiratory/Chest: lungs clear, no respiratory distress, no accessory muscle use Cardiovascular: regular rate, rhythm, no gallop, no murmur Abdomen: normal bowel sounds, non tender, soft, no organomegaly Extremities: no pedal edema Neurologic/Psychiatric: alert, oriented x 3 Skin: + pertinent finding (significant hyperpigmentation of face & legs (shins) ) Laboratory Results Last 24 Hours Test 11/26/17 05:53 11/26/17 16:23 Sodium Level 135 mmol/L Potassium Level 3.8 mmol/L Chloride Level 101 mmol/L Carbon Dioxide Level 28 mmol/L Anion Gap 6.0 mmol/L Blood Urea Nitrogen 28 mg/dl Creatinine 1.09 mg/dl Est Creatinine Clear Calc Drug Dose 58.6 ml/min Estimated GFR () 59.6 Estimated GFR (Non- 51.4 BUN/Creatinine Ratio 25.6 Random Glucose 76 mg/dl Calcium Level 8.4 mg/dl Vitamin B12 Level > 2000 pg/mL White Blood Count 6.08 K/uL Red Blood Count 3.13 M/uL Hemoglobin 10.1 g/dL Hematocrit 29.7 % Mean Corpuscular Volume 94.9 fL Mean Corpuscular Hemoglobin 32.3 pg Mean Corpuscular Hemoglobin Concent 34.0 g/dl RDW Standard Deviation 49.6 fL RDW Coefficient of Variation 14.6 % Platelet Count 295 K/uL Mean Platelet Volume 9.6 fL Total Bilirubin 0.5 mg/dl Direct Bilirubin 0.2 mg/dl Aspartate Amino Transf (AST/SGOT) 37 U/L Alanine Aminotransferase (ALT/SGPT) 40 U/L Alkaline Phosphatase 145 U/L Total Protein 6.4 gm/dl Albumin 2.7 gm/dl Assessment and Plan 72yo female - 1. influenza A infection - initial dx made on 11/19/17. resolved. She had been refusing her tamiflu but again her illness is clinically resolved. 2. acute bronchitis 2nd to above - resolved; lung exam again wnl today. Cont nebs for symptomatic relief. 3. atrial fibrillation - cont in NSR; continue xarelto & BB. 4. h/o chronic systolic CHF - appears compensated. Repeat echo today with IMPROVED EF (50-55%) - last echo per her recollection was <40%. Cont BB, lasix, EDDA HOWEVER will reduce lasix to 40mg daily and hold lisinopril due to low BPs. 5. chronic dizziness - likely volume depletion from large lasix dose as well as low BP from meds. Orthostatics are +. Hold lisinopril. Reduce lasix dose. BMP am. Check cortisol level in am to be complete. 6. hypothyroidism - TSH checked late October wnl; cont same synthroid dose. 7. hyponatremia - mild - likely 2nd to chronic lasix use - resolved. 8. chronic minocycline use - uncertain reason. Has this caused her hyperpigmentation? 9. abnormal LFTs - due to influenza/viral induced? rechecked today and they are now normal. 10. rhabdomyolysis - likely from her fall - resolved. 11. deconditioning - PT/OT have seen - patient agreeable to PT, OT at home. 12. constipation - senna/miralax. 13. anemia - 4 gram drop since admission. With her ecchymoses on both flanks and with her xarelto use I was concerned about retroperitoneal hemorrhage. Obtained CT abd/pelvis - no retroperitoneal hemorrhage. Will check cbc again in am; if any further drop then will need to check for occult GI bleeding. 14. skin hyperpigmentation - due to chronic minocin use?? check cortisol level in am due to low BPs and adenoma seen on CT. if labs in AM are acceptable then d/c home in am Discharge planning: home with home health
[2017-11-26] MEDS: ZOLPIDEM TARTRATE 10 MG TAB PO SCH (20:10)
[2017-11-26] MEDS: RIVAROXABAN 20 MG TAB PO SCH (20:12)
[2017-11-26] MEDS: ACETAMINOPHEN 500 MG TAB PO PRN (20:14)
[2017-11-26 23:10] VITALS: BP_SYST 102; BP_SYST 106; BP_SYST 118; BP_DIAS 69; BP_DIAS 70; BP_DIAS 72; PULSE 102; PULSE 105; PULSE 89; TEMP 36.7; O2SAT 100
[2017-11-27] MEDS: LEVOTHYROXINE 112 MCG TAB PO SCH (06:09)
[2017-11-27] MEDS: ALBUT/IPRATROP 3MG/0.5MG NEB 3 ML VIAL INH SCH (07:08)
[2017-11-27] MEDS: ACETYLCYSTEINE 20% INHAL SOLN ***DISPENSED BY RESP. INH SCH (07:08)
[2017-11-27 07:13] VITALS: PULSE 92; O2SAT 100
[2017-11-27 07:36] LABS: HEMATOCRIT 28.8 % (37-47); HEMOGLOBIN 10.1 g/dL (12.0-16.0); MEAN CELL VOLUME 94.4 fL (80-100); MEAN CORPUSCULAR HEMOGLOBIN 33.1 pg (25-34); MEAN CORPUSCULAR HGB CONC 35.1 g/dl (32-36); MEAN PLATELET VOLUME 9.1 fL (7.4-10.4); PLATELET COUNT 282 K/uL (130-400); RED CELL DISTRIBUTION WIDTH CV 14.5 % (11.5-14.5); RED CELL DISTRIBUTION WIDTH SD 49.7 fL (36.4-46.3); WHITE BLOOD COUNT 3.87 K/uL (4.8-10.8)
[2017-11-27] MEDS: CARVEDILOL 6.25 MG TAB PO SCH (07:42)
[2017-11-27] MEDS: ACETAMINOPHEN 500 MG TAB PO PRN (07:42)
[2017-11-27] MEDS: RANITIDINE HCL 150 MG TAB PO SCH (07:42)
[2017-11-27] MEDS: POLYETHYLENE (MIRALAX) 17 GM PACK PO SCH (07:43)
[2017-11-27] MEDS: SENNA 8.6 MG TAB PO SCH (07:43)
[2017-11-27] MEDS: BENZONATATE 100MG CAP PO SCH (07:44)
[2017-11-27 07:45] VITALS: BP 126/68; PULSE 88; TEMP 36.6; O2SAT 100
[2017-11-27] MEDS: LIDODERM (LIDOCAINE) PATCH 5% TD SCH (07:45)
[2017-11-27] MEDS ORDERED: FUROSEMIDE 40 MG TAB PO SCH (08:00)
[2017-11-27 08:06] LABS: CALCIUM 8.8 mg/dl (8.5-10.1); CREATININE 0.98 mg/dl (0.60-1.20); POTASSIUM 3.8 mmol/L (3.5-5.1)
[2017-11-27 09:12] VITALS: O2SAT 100
[2017-11-27] MEDS ORDERED: LISI10TA PO (10:11)
[2017-11-27] MEDS ORDERED: FRS/40 PO (10:11)
[2017-11-27] MEDS ORDERED: LDDP5 TD (10:11)
[2017-11-27] MEDS ORDERED: IPRASOL4 INH (10:11)
[2017-11-27] MEDS ORDERED: ZNT150 PO (10:11)
[2017-11-27 10:33] VITALS: BP 126/68; PULSE 88; TEMP 36.6; O2SAT 100
[2017-11-27 10:58] VITALS: BP_SYST 120; BP_SYST 126; BP_SYST 137; BP_DIAS 74; BP_DIAS 82; BP_DIAS 85; PULSE 75; PULSE 95; PULSE 98
--- NOTE | 2017-11-27 11:25 | DIAGNOSTIC IMAGING REPORT ---
R FEMUR 2 VIEWS ROUTINE CLINICAL HISTORY: recent fall, contusion mid femur on right; eval bony injury COMPARISON: None FINDINGS: No acute fracture of the right femur is identified. Alignment of the right hip and knee is anatomic. There is no evidence for right knee joint effusion. IMPRESSION: No acute fracture of the right femur. Electronically signed by: Clarence Mcadams M.D. 11/27/2017 11:24 AM Dictated Date/Time: 11/27/2017 11:23 AM
--- NOTE | 2017-11-27 11:29 | DIAGNOSTIC IMAGING REPORT ---
CT OF THE HEAD WITHOUT CONTRAST CLINICAL HISTORY: recent fall/head injury, right-sided alevism pain COMPARISON STUDY: No previous studies for comparison. TECHNIQUE: Helical axial images of the head were obtained without IV contrast. Automated exposure control was utilized for the study. A dose lowering technique was utilized adhering to the principles of ALARA. FINDINGS: No acute intracranial hemorrhage, midline shift or mass effect is present. Ventricular system is normal. Basilar cisterns are patent. There are no extra-axial collections. Treadwell-white differentiation is maintained. The left sphenoid sinus is largely opacified. There is no calvarial fracture. Mastoid air cells are clear. IMPRESSION: 1. No acute intracranial findings. 2. No calvarial fracture. 3. Opacified left sphenoid sinus. Electronically signed by: Clarence Mcadams M.D. 11/27/2017 11:28 AM Dictated Date/Time: 11/27/2017 11:25 AM
--- NOTE | 2017-11-27 11:56 | Discharge Instructions ---
Discharge Instructions Date of Service Nov 27, 2017. Admission Reason for Admission: Influenza A infection Discharge Discharge Diagnosis / Problem: Influenza A infection, low blood pressure, recent fall Discharge Goals Goal(s): Learn about illness, Diagnostic testing, Therapeutic intervention Activity Recommendations Activity Limitations: resume your previous activity . Instructions / Follow-Up Instructions / Follow-Up From Dr. Springer - You were treated for influenza A infection, bronchitis due to the flu, dizziness likely from your low blood pressure, and pain in your left chest/ flank - likely from your fall and possible rib fractures. 1. flu A infection - this is resolved and you are no longer contagious to others. You do not need any further tamiflu. 2. congestive heart failure - we received good news when your echo showed that the "ejection fraction" had improved to 50-55%. I believe the large doses of lasix and lisinopril - which you needed when your heart failure was worse - were likely causing your dizziness by dropping your blood pressure too low. Please do the following - * LOWER the lasix to 1 tablet each morning ONLY; do not take twice a day as previous * LOWER your lisinopril dose to 10mg each day (new prescription sent to [facility] ) * CONTINUE your carvedilol twice a day as previous * CHECK your weight EVERY MORNING on the same scale at home * if your weight rises more than 2-3 pounds in 1-2 days this could be a sign you are taking on extra fluid weight because of your congestive heart failure * if you see a weight gain like that please contact your family doctor right away 3. Note that the minocycline can cause heartburn. You can take zantac ( ranitidine) every 12 hours as needed for heartburn at home. 4. Cough/wheezing - you will be given a nebulizer machine with "duonebs" to help with those symptoms. You can take a duoneb every 8 hours as needed for cough/wheeze. You will likely be able to stop this medication within the next 1 -2 weeks. 5. If you continue with falls at home you will need to discuss with your doctors if it is safe to continue on your xarelto blood thinner. Fortunately your head CAT scan was NORMAL - it did NOT show any blood from your recent fall. 6. Your x-ray of your right thigh was NEGATIVE for any broken bones. Your thigh has a significant bruise - you can use heat on this for pain relief. 7. It is possible you have 2 new broken ribs on the left causing pain. You can use the lidoderm patches - apply up to 2 patches at sites of pain in the morning, remove 12 hours later. The broken ribs will take about 4-6 weeks to heal completely. There is nothing else to do except treat the pain. 8. Follow-up with Dr. Rangel next week as scheduled. 9. Return to [facility] if - * you have worsening shortness of breath * you have worsening flank/chest discomfort despite taking your medications, using the lidoderm patches, etc * fever over 100.5 degrees * any other concerns Current Hospital Diet Patient's current hospital diet: AHA Diet (Heart Healthy) Discharge Diet Recommended Diet: AHA Diet (Heart Healthy) Procedures Procedures Performed: CAT scan of abd/pelvis with no evidence of internal bleeding. 4-5mm nodule in the left lung - you will need a repeat CAT scan in 12 months to ensure it is not getting bigger. x-rays of ribs with OLD fractured ribs on right, possibly 2 new rib fractures on the left. Pending Studies Studies pending at discharge: no Medical Emergencies . Who to Call and When: Medical Emergencies: If at any time you feel your situation is an emergency, please call 911 immediately. . Non-Emergent Contact Non-Emergency issues call your: Primary Care Provider Call Non-Emergent contact if: temperature is above 100.5, you have any medication questions . . "Provider Documentation" section prepared by Sam Springer. .
--- NOTE | 2017-11-28 22:12 | Discharge Summary ---
Discharge Summary Date of Service Nov 28, 2017. Discharge Summary Admission Date: Nov 23, 2017 at 18:24 Discharge Date: Nov 27, 2017 Discharge Disposition: Home with services Principal Diagnosis: influenza A infection Problems/Secondary Diagnoses: 1. recent fall in the setting of her influenza illness 2. right thigh contusion due to her fall 3. b/l flank contusions due to her fall 4. suspected left-sided rib fractures due to fall 5. chronic systolic/diastolic CHF - EF improved 6. chronic dizziness due to orthostasis & low BP - likely iatrogenic from medications 7. chronic fatigue syndrome 8. hypothyroidism 9. multinodular goiter 10. h/o paroxysmal atrial fibrillation 11. ambulatory dysfunction 12. acute bronchitis 2nd to flu A infection - resolved 13. LLL pulmonary nodule - 4mm - follow-up CT recommended in 12 months 14. mild rhabdomyolysis - resolved, likely due to recent fall 15. abnormal LFTs - resolved - etiology? viral-induced? 16. hyponatremia - resolved Procedures: 1. left sided rib series - FINDINGS: The erect chest reveals no pneumothorax. There is no focal pulmonary consolidation. There are old right-sided rib fractures. Submental views of the left ribs reveal no acute fractures. Deformities of the sixth and seventh ribs are likely old. IMPRESSION: 1. Subtle deformities of the left sixth and seventh ribs, likely old. Please correlate with the patient's site of pain 2. No evidence of pneumothorax. 2. echocardiogram - * -- Conclusions -- * 1. Normal left ventricular size with grossly low-normal systolic function. EF 50-55%. No definite regional wall motion abnormalities. Cannot exclude wall motion abnormalities given image quality. No left ventricular hypertrophy. Type 1 diastolic dysfunction. * 2. The left atrium is mildly dilated. * 3. There is mild mitral annular calcification. * 4. Normal estimated right ventricular systolic pressure. * 5. Technically difficult study. * 6. No prior study available for comparison. 3. CT abd/pelvis - IMPRESSION: 1. No evidence of retroperitoneal hematoma or evidence of acute intra- abdominal hemorrhage. 2. Nonspecific subcutaneous infiltration in the bilateral flanks and lumbar region. This could represent edema or contusions. 3. Hepatic steatosis. 4. 14 mm right adrenal benign adenoma. Suspected smaller benign adenomas in the left adrenal gland. 5. Solid 4 mm pulmonary nodule in the left lower lobe. Follow-up per [employer] [address] head - negative for stroke, ICH. 5. right femur x-rays - negative for fracture. Consultations: PT, OT Medication Reconciliation New Medications: Nebulizer Machine (Home Use) (Nebulizer Machine (Home Use) ) Mis EA N/A UD, #1 dx- influenza A infection; acute bronchitis. Ipratropium-Albuterol (Duoneb) 3 Ml Nebu 3 ML INH TID PRN for cough/wheeze, #1 BOX 2 Refills Lidocaine (Lidocaine) 1 Patch Tdsy 2 PATCH TD QAM, #60 PATCH 1 Refill apply to sites of pain on chest wall/back for 12 hrs, remove for 12 hrs Ranitidine HCl (Ranitidine HCl) 150 Mg Tab 150 MG PO BID PRN for heartburn, #60 TAB 2 Refills Changed Medications: Furosemide (Lasix) 40 Mg Tab 40 MG PO QAM, #30 TAB 2 Refills (Changed from: BID; Refills: ) Lisinopril (Prinivil) 10 Mg Tab 1 TAB PO DAILY for 30 Days, #30 TAB 5 Refills (Changed from: Lisinopril ( Prinivil) 40 Mg Tab 40 Mg PO DAILY) Continued Medications: Azithromycin (Zithromax) 250 Mg Tab 250 MG PO DAILY Benzonatate (Tessalon Perles) 100 Mg Cap 100 MG PO TID for Cough, #30 CAP Carvedilol (Coreg) 6.25 Mg Tab 6.25 MG PO BID, TAB Levothyroxine Sodium (Synthroid) 112 Mcg Tab 112 MCG PO DAILY, TAB Melatonin (Melatonin) 5 Mg Tab 5-10 MG PO HS Metronidazole (Flagyl) 500 Mg Tab 500 MG PO UD, TAB TWICE A DAY TWICE WEEKLY Minocycline (Minocin) 100 Mg Cap 200 MG PO Q12, CAP Rivaroxaban (Xarelto) 20 Mg Tab 20 MG PO DAILY, TAB Tinidazole (Tindamax) 500 Mg Tab 500 MG PO UD, TAB Zolpidem Tartrate (Zolpidem Tartrate) 10 Mg Tab 10 MG PO HS, TAB Discontinued Medications: Oseltamivir (Tamiflu) 75 Mg Cap 75 MG PO BID, #10 CAP Discharge Exam Physical Exam: General Appearance: no apparent distress ENT: pharynx normal Neck: no JVD Respiratory/Chest: lungs clear, no respiratory distress, no accessory muscle use Cardiovascular: regular rate, rhythm, no gallop, no murmur, normal peripheral pulses Abdomen / GI: normal bowel sounds, non tender, soft, no organomegaly Extremities: no pedal edema Neurologic/Psychiatric: alert, oriented x 3 Skin: + pertinent finding (significant hyperpigmentation of the face and shins/legs; on the legs the pigmentation has a hemosiderin appearance to it; b/ l flanks/back with ecchymoses; ecchymoses on right lateral thigh ) Hospital Course HISTORY OF PRESENT ILLNESS: Ms. Eva Ford is a 72-year-old woman with past medical history significant for paroxysmal atrial fibrillation on anticoagulation therapy, congestive heart failure (unknown EF; no records in [employer]) and hypothyroidism who was in her usual state of health until 6 days ago when she developed generalized malaise and intermittent shortness of breath with exertion. Symptoms gradually worsened and she went to see a provider in an urgent care facility who diagnosed her with bronchitis. She was placed on zithromax at that time. She didn't improve and on 11/19/17 was seen in the [facility] ER on two occasions. During the first visit she was found to be in rapid a. fib but fortunately converted back to normal sinus rhythm and was discharged home. She presented again later that night at which point a CTA chest was obtained due to multiple pulmonary symptoms. No PE or pneumonia was seen. However, rapid flu testing was positive for influenza A. She was discharged to home on tamiflu. On 11/21/17 she presented yet again to the [facility] ER with persistent flu symptoms including fever, cough, weakness, chest pain with coughing, nausea, and poor appetite. HOSPITAL COURSE: The patient was given supportive care for her influenza A infection. On multiple occasions she refused her tamiflu. [id number] she remained afebrile and her illness resolved without complications. She received nebulizer treatments for her acute bronchitis. At discharge she was provided with a nebulizer and duonebs for home use. One of her main complaints during the stay was that of chronic dizziness/ lightheadedness, particularly with standing up/walking. She was noted to have low or low-normal BPs at rest and her orthostatics were positive. Cortisol level was normal. She was hyponatremic which reflected her volume depleted state. She was on large doses of lasix as well as lisinopril due to a prior diagnosis of chronic systolic CHF (to her recollection her EF was in the 30s). An echo was obtained which showed improved EF at 50-55%. She had NO symptoms/signs of CHF during her stay. I recommended she REDUCE her lasix to 40mg once every morning and REDUCE her lisinopril to 10mg once daily. Her coreg dose will remain the same. With the above measures her orthostatic hypotension resolved, BPs came up to about 120 systolic, and her dizziness improved. Because her lasix dose was decreased I advised her to be vigilant with daily weights and to report any significant weight gains to her PCP. Other issues addressed: 1. abnormal LFTs - due to influenza/viral induced? These normalized prior to discharge. 2. mild rhabdomyolysis - likely from her fall - resolved. 3. anemia - she experienced a 4 gram drop during her admission. She had b/l flank ecchymoses and with her xarelto use and recent fall I was concerned about retroperitoneal hemorrhage. Obtained CT abd/pelvis - no retroperitoneal hemorrhage was seen. She also had a large contusion on her right thigh - x-rays were negative for fracture. I suspect some of her initial hemoglobin drop was due to IV fluids. She had no overt GI bleeding during the stay. Discharge hemoglobin was 10.1. 4. skin hyperpigmentation - due to chronic minocin use?? Cortisol level was normal. She apparently takes chronic antibiotics for chronic fatigue syndrome? Chronic lyme's? Other? 5. recent fall - later on in her stay the patient reported she had had a fall at her home when she came down with the flu. She apparently fell into her bathtub striking the right side of her head on the bathtub floor. CT head was negative for ICH. CT abd/pelvis showed no retroperitoneal hematoma. She was seen by PT/OT - home therapy services were recommended. If she were to continue having frequent falls a discussion about risks vs benefits of anticoagulation would need to be held. 6. paroxysmal a. fib - she remained in NSR during the stay. She will continue beta amy and xarelto. 7. left sided chest wall pain - suspect this was due to 2 left-sided rib fractures as a result of her recent fall. Treated symptomatically. 8. LLL pulmonary nodule - incidentally, on CT scanning, a 4mm LLL pulmonary nodule was seen. Although she personally never smoked she had heavy second- hand smoke much of her life. A follow-up CT scan in 12 months is recommended. Total Time Spent: Greater than 30 minutes This includes examination of the patient, discharge planning, medication reconciliation, and communication with other providers. Discharge Instructions Please refer to the electronic Patient Visit Report (Discharge Instructions) for additional information. Follow-Up December 03 3:30pm with Dr. Terrell Additional Copies To Veronica Terrell M.D.; Pete Rangel M.D.
== END 2017-11-27 13:15 | disposition home health service (06) | DRG 194 ==
LOC: EDBD 13:21 → C.EDC 13:22 → C.2T 19:29 → UNDOADMOB 19:29 → C.2T 19:30 → OBSVTOIN 19:30 → ENRESERV 19:39 → C.2T 11-22 14:58 → C.4E 11-22 14:58 → OBSVTOIN 11-23 18:24 → INTOOBSV 11-23 18:24 → UNDODISIN 11-27 13:15
PROVIDERS: ADMIT Internal Medicine; ATTEND Internal Medicine
DX: J10.1 Influenza due to other identified influenza virus with other respiratory manifestations (principal); E87.1 Hypo-osmolality and hyponatremia; M62.82 Rhabdomyolysis; I50.42 Chronic combined systolic (congestive) and diastolic (congestive) heart failure; S22.42XA Multiple fractures of ribs, left side, initial encounter for closed fracture; J20.9 Acute bronchitis, unspecified; I48.91 Unspecified atrial fibrillation; E03.9 Hypothyroidism, unspecified; K59.00 Constipation, unspecified; R42 Dizziness and giddiness; D64.9 Anemia, unspecified; S70.11XA Contusion of right thigh, initial encounter; Z79.01 Long term (current) use of anticoagulants; Z79.899 Other long term (current) drug therapy; Z77.22 Contact with and (suspected) exposure to environmental tobacco smoke (acute) (chronic); Z88.5 Allergy status to narcotic agent; W19.XXXA Unspecified fall, initial encounter

== ENCOUNTER → 2018-04-13 | Outpatient (CLI) | payer OTHER ==
[~2018-04-13] MED LIST changes: -BENZ100C18 PO; +IPRA-64 INH; +LDDP5 TD; +LISI10TA PO; -LISI40TA PO; +OPTIRAY 320 IV PRN; -OSEL75CA12 PO; +ZNT150 PO
--- NOTE | 2018-04-13 09:23 | DIAGNOSTIC IMAGING REPORT ---
CT OF THE CHEST WITH IV CONTRAST CLINICAL HISTORY: BRONCHITIS, CHRONIC COUGH SHORTNESS OF BREATH COMPARISON STUDY: CT scan dated 11/19/2017 TECHNIQUE: Following the IV administration of 84 mL of Optiray-320, CT of the thorax was performed from the thoracic inlet to the lung bases. Images are reviewed in the axial, sagittal, and coronal planes. IV contrast was administered without complication. A dose lowering technique was utilized adhering to the principles of ALARA. CT DOSE: 563.03 mGy.cm FINDINGS: Thyroid: Again evident is a multinodular thyroid goiter. Thoracic aorta: The thoracic aorta is normal in course and caliber, noting standard 3-vessel arch anatomy. No aneurysm or dissection is seen. Pulmonary vasculature: The pulmonary trunk is normal in caliber. There are no central filling defects identified to suggest pulmonary embolus. Note that this examination was not protocoled for the evaluation of pulmonary emboli. HEART: The heart is enlarged. There is no significant pericardial effusion. Lungs and pleural spaces: There are scattered groundglass opacities with a mosaic distribution. There is evidence for mild diffuse bronchial wall thickening. There is evidence for scattered areas of mucous plugging. There is a stable 6 mm left lower lobe pulmonary nodule. Mediastinum: Prevascular lymph nodes are the upper limits of normal in size. Roseann: Right hilar lymph nodes are the upper limits of normal in size. Axilla: There is no pathologic axillary lymphadenopathy Upper abdomen: Partially visualized upper abdominal viscera is within normal limits. Skeletal structures: There are no lytic or blastic osseous lesions. A left breast implant is again visualized. IMPRESSION: 1. Stable solid 6 mm left lower lobe pulmonary nodule 2. Interval development of scattered groundglass opacities with a mosaic distribution. In addition there is evidence for mild diffuse bronchial wall thickening and scattered areas of mucous plugging. The findings are likely secondary to a bronchitis/bronchiolitis. Electronically signed by: Eros Crow M.D. 04/13/2018 9:22 AM Dictated Date/Time: 04/13/2018 9:12 AM
== END | disposition home or self-care (01) ==
LOC: C.CTS 08:47
PROVIDERS: ATTEND Internal Medicine
DX: R05 Cough (principal); J40 Bronchitis, not specified as acute or chronic; I48.0 Paroxysmal atrial fibrillation; R91.1 Solitary pulmonary nodule

== ENCOUNTER 2018-11-30 10:53 | Inpatient (IN) ==
[2018-11-30] MEDS ORDERED: SODIUM CHLORIDE 0.9% 500 ML IV SCH (11:30)
--- NOTE | 2018-11-30 11:31 | XRay Report ---
XR chest 1V portable HISTORY: 73 years-old Female Chest Pain acute atypical chest pain COMPARISON: Chest and rib radiographs 11/26/2017, chest CT 04/13/2018 TECHNIQUE: Portable AP view of the chest FINDINGS: Cardiac silhouette is enlarged, unchanged. Calcification the thoracic aortic arch. There is no pneumo thorax, pleural effusion, focal airspace consolidation or overt pulmonary edema. Linear subsegmental right suprahilar densities are suggestive of atelectasis/scarring. Degenerative changes of the should ers and spine. IMPRESSION: Cardiomegaly without acute process. The above report was generated using voice recognition software. It may contain grammatical, syntax o r spelling errors. Electronically signed by: Sree Sr M.D. 11/30/2018 11:30 AM
[2018-11-30] MEDS ORDERED: dilTIAZem HCl 5 MG/ML 5 ML VIAL IV STA (11:57)
[2018-11-30 12:06] LABS: Basophils # (auto) 0.02 K/uL (0-0.2); Basophils % (auto) 0.3 %; Eosinophils # (auto) 0.04 K/uL (0-0.5); Eosinophils % (auto) 0.5 %; Hematocrit (blood only) 41.7 % (37-47); Hemoglobin 14.5 g/dL (12.0-16.0); Immature Granulocytes # (auto) 0.01 K/uL (0.00-0.02); Immature Granulocytes % (auto) 0.1 %; Lymphocytes # (auto) 0.96 K/uL (1.2-3.4); Lymphocytes % (auto) 12.2 %; Mean Corpuscular Hgb Conc 34.8 g/dL (32-36); Mean Corpuscular Volume 98.6 fL (80-100); Mean Platelet Volume 11.4 fL (7.4-10.4); Monocytes # (auto) 0.73 K/uL (0.11-0.59); Monocytes % (auto) 9.3 %; Neutrophils # (auto) 6.12 K/uL (1.4-6.5); Neutrophils % (auto) 77.6 %; Platelet Count 218 K/uL (130-400); RDW Coefficient of Variation 14.1 % (11.5-14.5); RDW Standard Deviation 50.2 fL (36.4-46.3); Red Blood Count 4.23 M/uL (4.2-5.4); White Blood Count 7.88 K/uL (4.8-10.8)
[2018-11-30] MEDS: dilTIAZem HCl 125 MG in DEXTROSE 5% 100 ML IV SCH (12:22)
[2018-11-30 12:30] LABS: Alanine Aminotransferase 29 U/L (12-78); Albumin Level 3.7 gm/dl (3.4-5.0); Aspartate Aminotransferase 30 U/L (15-37); BUN Creatinine Ratio 34.4 (10-20); Blood Urea Nitrogen 37 mg/dl (7-18); Calcium 9.4 mg/dl (8.5-10.1); Carbon Dioxide 22 mmol/L (21-32); Chloride 104 mmol/L (98-107); Est GFR (African American) 60.5; Est GFR (Non-African American) 52.2; Glucose 92 mg/dl (70-99); Potassium 4.1 mmol/L (3.5-5.1); Sodium 135 mmol/L (136-145)
[2018-11-30 12:34] LABS: Albumin Globulin Ratio 0.9 (0.9-2); Alkaline Phosphatase 161 U/L (45-117); Bilirubin,Total 0.6 mg/dl (0.2-1); Globulin 4.3 gm/dl (2.5-4.0); Troponin I < 0.015 ng/ml (0-0.045)
[2018-11-30] MEDS ORDERED: KETOROLAC TROMETHAMINE 15 MG/ML VIAL IV ONE (12:51)
--- NOTE | 2018-11-30 13:34 | History & Physical Report ---
Date of Service November 30, 2018 Assessment & Plan (1) Atrial fibrillation with RVR: - Admit to tele - Consult cardiology - Continue cardizem gtt, pt has not yet converted to NSR, rhythm under better controlled currently - Continue on carvedilol , lisinopril - Anticoagulated with xarelto - 2D echo ordered - HIM to obtain records from Dr. Rangel's office as I cannot access these. - Allow HH diet (2) CHF (congestive heart failure): - Combined systolic and diastolic CHF - Appears to be euvolemic currently. - Hold Lasix 40 mg QAM for now with afib and possible dehydration with tooth extraction and poor oral intake. - resume per day team - Daily weights, strict I/Os - 2D echo ordered with recent dental work and hx of infections. (3) Chronic anticoagulation: - Continue xarelto as above. (4) S/P tooth extraction: - Single tooth extracted on 11/26/18 - Continue keflex 250 mg QID, liquid. Pt was given one dose of Augmentin in the ER. - Follow BCx, check urine culture, afebrile, no leukocytosis. - Pt has been on halfway minocycline for hx of UTI, and also is on an alternating regimen of tinidazole and metronidazole every other weekend for hx of parasite infection for 10+ years. She is unable to provide details and is a poor historian regarding this topic. (5) Hypothyroidism: - Continue on levothyroxine 112 mcg QAM (6) Multinodular goiter: - Stable (7) Chronic, continuous use of opioids: - Allow oxycodone-acetaminophen for now since has been on this chronically. Monitor for signs of withdrawal with reduced dosing. - PDMP reviewed - S/p dental extraction last Thursday contributing to current mouth pain. One dose of IV toradol helped pain in the ER. (8) Hyponatremia: - Chronic, Na = 135, follow with am labs (9) Ambulatory dysfunction: - PT/OT consulted, pt does not use assistive devices at baseline - Lives alone in apartment, will ask CM to assist with d/c planning (10) DVT prophylaxis: teds, scds, xarelto History of Present Illness Primary Care Provider: Qasim Rangel This is a 73-year-old female with PMHx of paroxysmal A. fib on Xarelto, chronic CHF, combined type diastolic and systolic, hypertension, chronic hyponatremia, hypothyroidism, multinodular goiter, ambulatory dysfunction, chronic opioid use, who presents after routine PCP appointment this morning and being found to be in Afib with RVR. The patient's son is with her at bedside. Patient reports that she has not felt well overall since of August 2018, and that she has a chronic left-sided dull aching pain which has not been able to be alleviated with any standard medication. She denies any changes in her diet, ADLs, and takes chronic oxycodone-acetaminophen tablets for pain relief. She felt significantly worse this morning with lightheadedness, dizziness, unsteady her gait than usual, palpitations and some shortness of breath. She does feel like this is similar to her previous A. fib episodes, however this episode was more severe. She recently had a dental extraction last Thursday, and has been taking liquid Keflex 4 times daily since then. She denies fever, sweats or chills. Patient reports pain in her mouth is moderate, IV toradol given in the ER and has alleviated the majority of her pain. Pt was found to be in A. fib with RVR with heart rate in the 130-140s at time of arrival in the ER, was started on a diltiazem drip. Her rate has improved into the 110s but has not yet converted during my exam. Allergies Allergy/AdvReac Type Severity Reaction Status Date / Time codeine AdvReac Intermediate SEVERE GI Verified 11/30/18 13:39 SYMPTOMS Home Medications Home Medications Medication Instructions Recorded Confirmed Type benzonatate [Tessalon Perles] 100 mg PO BID PRN 11/30/18 11/30/18 History carvedilol 1 tab PO BID 11/30/18 11/30/18 History cephalexin 5 ml PO QID 11/30/18 11/30/18 History furosemide 20 mg PO DIRECTED PRN 11/30/18 11/30/18 History furosemide 40 mg PO QAM 11/30/18 11/30/18 History levothyroxine 1 tab PO QAM 11/30/18 11/30/18 History lisinopril 40 mg PO QAM 11/30/18 11/30/18 History metronidazole 500 mg PO DIRECTED 11/30/18 11/30/18 History minocycline 200 mg PO BID 11/30/18 11/30/18 History multivitamin [Multiple Vitamins] 1 tab PO QAM 11/30/18 11/30/18 History oxycodone-acetaminophen 1 tab PO UD PRN 11/30/18 11/30/18 History prednisone 5 mg PO QAM 11/30/18 11/30/18 History rivaroxaban [Xarelto] 20 mg PO QPM 11/30/18 11/30/18 History tinidazole 500 mg PO DIRECTED 11/30/18 11/30/18 History Past Med/Surg History Medical History S/P tooth extraction Hyponatremia Chronic, continuous use of opioids Ambulatory dysfunction Multinodular goiter Hypothyroidism Atrial fibrillation with RVR (Acute) Weakness (Acute) Chronic fatigue syndrome (Chronic) Atrial fibrillation CHF (congestive heart failure) (Chronic) Chronic anticoagulation (Chronic) Social History Preferred Language: Albanian Communication Ability: Effective Invasive Cardiovascular Technologist Required: No Beliefs That Will Affect Care: None Current Living Situation: Alone Other Information That Helps Us Care for You: No Feels Safe at Home: Yes Safety Concerns: Feels Safe At This Time Smoking Status: Never smoker Hx Alcohol Use: No Hx Substance Use: No Review of Systems Constitutional: No fever, sweats or chills Eyes: No diplopia, no worsening or blurred vision ENT: normal hearing, no trouble swallowing Respiratory: No cough, sputum. + SOB per HPI, no chronic SOB or use of O2. Cardiovascular:As per HPI. Abdomen: No pain, nausea, vomiting, diarrhea or constipation Musculoskeletal: + left sided weakness x 4 months as per HPI. No joint pain, calf pain, swelling Neurologic: No weakness, numbness/tingling, or balance problems Psychiatric: No anxiety or depression Skin: No rash or itch Physical Exam Vital Signs (Past 24 Hours): Last Vital Signs Temp 36.7 C 11/30/18 11:05 Pulse 97 H 11/30/18 13:01 Resp 16 11/30/18 13:01 BP 125/85 11/30/18 13:01 Pulse Ox 98 11/30/18 13:01 Physical Exam: General: awake, alert, no apparent distress Head: Normocephalic, atraumatic, + hyperpigmentation of the face ENT: PERRL, EOMI, no pharyngeal exudate, mucous membranes moist, + poor dentition Chest: Clear to auscultation, on room air, no adventitious breath sounds Cardiac: Irregularly irregular HR in 110s, no murmur, no JVD, normal peripheral pulses Abdominal: NABS x 4 quadrants, soft, +slightly distended, nontender to palpation, no rebound, guarding or tenderness Extremities: + hyperpigmentation over the shins bilaterally, no peripheral edema or erythema, calfs nontender to palpation Psych: Normal mood and affect Neuro: AAO x 3, strength intact bilaterally and related 5/5, no motor deficits, speech is clear, no peripheral sensory deficits Constitutional: WD/WN, vitals as above Eyes: normal visual ny by confrontation and + anicteric sclerae ENMT: Mouth: + poor dentition Neck: normal visual inspection and trachea midline Respiratory: normal respiratory effort, lungs clear to auscultation Cardiovascular: Rate/Rhythm: regular rate and regular rhythm Gastrointestinal (Abdomen): Inspection/Auscultation: abdomen not distended Percussion/Palpation: abdomen soft; abdomen nontender Musculoskeletal: Head/Neck/Chest: normocephalic and head atraumatic Neg for peripheral LE edema, + pedal pulses Skin: multiple regions of hyperpigmentation noted Neurologic: awake; not confused Speech / Cognition: normal speech Psychiatric: A+Ox3, euthymic affect Lymphatic: Exam as done by Angela Mazariegos DO Results & Data Diagnostic Findings XR chest 1V portable HISTORY: 73 years-old Female Chest Pain acute atypical chest pain COMPARISON: Chest and rib radiographs 11/26/2017, chest CT 04/13/2018 TECHNIQUE: Portable AP view of the chest FINDINGS: Cardiac silhouette is enlarged, unchanged. Calcification the thoracic aortic arch. There is no pneumothorax, pleural effusion, focal airspace consolidation or overt pulmonary edema. Linear subsegmental right suprahilar densities are suggestive of atelectasis/scarring. Degenerative changes of the shoulders and spine. IMPRESSION: Cardiomegaly without acute process. ECG Additional Comments: 30-NOV-2018 11:29:16 [facility] Atrial fibrillation with rapid ventricular response with premature ventricular or aberrantly conducted complexes Left axis deviation Nonspecific ST and T wave abnormality Abnormal ECG When compared with ECG of 21-NOV-2017 14:27, Atrial fibrillation has replaced Sinus rhythm Criteria for Inferior infarct are no longer Present 25mm/s 10mm/mV 150Hz 8.0 SP2 12SL 241 THELMA: 16 Referred by: Qasim Rangel Unconfirmed Vent. rate 129 BPM FL interval * ms QRS duration 88 ms QT/QTc 318/465 ms P-R-T axes * -31 64 Code Status & VTE Plan Code Status Full code - pt reports she would not want heroic measures. Son at bedside is in agreement. Supervising Physician Co-Signing Physician Notes Pt seen and examined by me. Pt states she is feeling much improved. Her L sided feelings of "inflammation" are resolved. She had pain in her jaw related to her recent tooth extraction and this is resolved. "Look at me! I'm laughing now!" She states she was gasping for air prior and this is resolved. Dizziness is resolved. Her recent PO intake has been limited by her dental procedure. Agree with HPI/ROS as noted by PA See above for my exam in PE section Agree with plan as outlined above Concern for possible sepsis s/p dental extraction in the setting of overall poor dentition Afib with RVR, hx of afib on xarelto IV toradol, called by nursing for additional dosing as pt feels this helped all of her sx
[2018-11-30] MEDS ORDERED: AMOXICILLIN/CLAVULANATE 875 MG TAB PO ONE (13:48)
--- NOTE | 2018-11-30 14:46 | Emergency Department Note ---
Entered by Ruthann Mota acting as a scribe for History of Present Illness General Chief complaint: Referred by Doctor Stated complaint: REFERRED BY DR Time Seen by Provider: 11/30/18 11:11 Source: patient History of Present Illness Provider complaint: heart palpitations, dizziness Onset (ago): day(s) (yesterday) Location: left and right Pain Consistency: + other (persistent) Maximum Pain Intensity: 10 Quality: + other (heart palpitations, dizziness) Associated symptoms: + other (left foot numbness. Denies: denies chest pain, shortness of breath, fevers, nausea, vomiting, diarrhea, abdominal pain.) The patient is a 73 year old female who presents to the Emergency Room with complaints of persistent heart palpitations and dizziness beginning yesterday. The patient was referred to the ED by Dr. Rangel this morning for elevated heart rate and low blood pressure. She notes fevers and chills. The patient states her left foot feels numb, but she is able to feel some touch. She reports "my whole left side has been bothering me," over the past 3 months. The patient denies chest pain, shortness of breath, fevers, nausea, vomiting, diarrhea, or abdominal pain. She notes she had a tooth extracted 4 days ago, and has been kristopher ing Cephalexin 4 times daily. The patient reports history of Afib and states she has been taking blood thinners. No other exacerbating or remitting factors. Home Medications Home Medications Medication Instructions Recorded Confirmed Type benzonatate [Tessalon Perles] 100 mg PO BID PRN 11/30/18 11/30/18 History carvedilol 1 tab PO BID 11/30/18 11/30/18 History cephalexin 5 ml PO QID 11/30/18 11/30/18 History furosemide 20 mg PO DIRECTED PRN 11/30/18 11/30/18 History furosemide 40 mg PO QAM 11/30/18 11/30/18 History levothyroxine 1 tab PO QAM 11/30/18 11/30/18 History lisinopril 40 mg PO QAM 11/30/18 11/30/18 History metronidazole 500 mg PO DIRECTED 11/30/18 11/30/18 History minocycline 200 mg PO BID 11/30/18 11/30/18 History multivitamin [Multiple Vitamins] 1 tab PO QAM 11/30/18 11/30/18 History oxycodone-acetaminophen 1 tab PO UD PRN 11/30/18 11/30/18 History prednisone 5 mg PO QAM 11/30/18 11/30/18 History rivaroxaban [Xarelto] 20 mg PO QPM 11/30/18 11/30/18 History tinidazole 500 mg PO DIRECTED 11/30/18 11/30/18 History Allergies Allergy/AdvReac Type Severity Reaction Status Date / Time codeine AdvReac Intermediate SEVERE GI Verified 11/30/18 13:39 SYMPTOMS Past Med/Surg History Medical History S/P tooth extraction Hyponatremia Chronic, continuous use of opioids Ambulatory dysfunction Multinodular goiter Hypothyroidism Atrial fibrillation with RVR (Acute) Weakness (Acute) Chronic fatigue syndrome (Chronic) Atrial fibrillation CHF (congestive heart failure) (Chronic) Chronic anticoagulation (Chronic) Social History Preferred Language: Burkinan Communication Ability: Effective 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 and A total of 10 systems reviewed and were otherwise negative Physical Exam Vital Signs Vital Signs - 24 hr 11/30/18 11:05 11/30/18 11:24 11/30/18 11:32 Temperature 36.7 C Temperature Source Oral Sepsis Recent Fever Within 48 Hours No Sepsis New/Unexplained Change in Mental Status No Sepsis Action Taken by Nursing No Action Required Pulse Rate 137 H Pulse Rate [Bilateral Finger] 149 H Respiratory Rate 16 17 Respiratory Effort / Characteristics Non-Labored Non-Labored Respiratory Depth Normal Normal Respiratory Pattern Regular Blood Pressure [Left Arm] 92/73 L Blood Pressure Mean [Left Arm] 79 Blood Pressure Position Sitting Pulse Oximetry 98 97 95 Oxygen Delivery Method Room Air Room Air Room Air 11/30/18 11:33 11/30/18 12:21 11/30/18 12:30 Temperature Temperature Source Sepsis Recent Fever Within 48 Hours Sepsis New/Unexplained Change in Mental Status Sepsis Action Taken by Nursing Pulse Rate Pulse Rate [Bilateral Finger] 122 H 106 H Respiratory Rate 15 18 Respiratory Effort / Characteristics Non-Labored Respiratory Depth Normal Respiratory Pattern Regular Blood Pressure [Left Arm] 102/76 96/76 L Blood Pressure Mean [Left Arm] 84 82 Blood Pressure Position Pulse Oximetry 95 94 98 Oxygen Delivery Method Room Air Room Air Room Air 11/30/18 12:46 11/30/18 13:01 11/30/18 13:30 Temperature Temperature Source Sepsis Recent Fever Within 48 Hours Sepsis New/Unexplained Change in Mental Status Sepsis Action Taken by Nursing Pulse Rate Pulse Rate [Bilateral Finger] 107 H 97 H 119 H Respiratory Rate 18 16 16 Respiratory Effort / Characteristics Non-Labored Non-Labored Respiratory Depth Normal Normal Respiratory Pattern Regular Regular Blood Pressure [Left Arm] 117/68 125/85 111/77 Blood Pressure Mean [Left Arm] 84 98 88 Blood Pressure Position Pulse Oximetry 98 98 98 Oxygen Delivery Method Room Air Room Air Room Air 11/30/18 13:45 11/30/18 14:00 11/30/18 14:15 Temperature Temperature Source Sepsis Recent Fever Within 48 Hours Sepsis New/Unexplained Change in Mental Status Sepsis Action Taken by Nursing Pulse Rate Pulse Rate [Bilateral Finger] 118 H 103 H 106 H Respiratory Rate 20 14 22 Respiratory Effort / Characteristics Non-Labored Non-Labored Non-Labored Respiratory Depth Normal Normal Normal Respiratory Pattern Regular Regular Regular Blood Pressure [Left Arm] 98/72 L 114/72 100/77 Blood Pressure Mean [Left Arm] 80 86 84 Blood Pressure Position Pulse Oximetry 100 100 100 Oxygen Delivery Method Room Air Room Air Room Air 11/30/18 14:30 Temperature Temperature Source Sepsis Recent Fever Within 48 Hours Sepsis New/Unexplained Change in Mental Status Sepsis Action Taken by Nursing Pulse Rate Pulse Rate [Bilateral Finger] 105 H Respiratory Rate 22 Respiratory Effort / Characteristics Non-Labored Respiratory Depth Normal Respiratory Pattern Regular Blood Pressure [Left Arm] 111/88 Blood Pressure Mean [Left Arm] 95 Blood Pressure Position Pulse Oximetry 92 Oxygen Delivery Method Room Air GENERAL: Chronically-ill appearing, disheveled, EYE EXAM: normal conjunctiva. OROPHARYNX: no exudate, no erythema, lips, buccal mucosa, and tongue normal and mucous membranes are moist NECK: supple, no nuchal rigidity, no adenopathy, non-tender LUNGS: Clear to auscultation. Normal chest wall mechanics HEART: no murmurs, S1 normal and S2 normal CHEST: Tachycardic and irregular. Reproducible left anterior chest wall pain ABDOMEN: abdomen soft, non-tender, normo-active bowel, sounds, no masses, no rebound or guarding. BACK: Back is symmetrical on inspection and there is no deformity, no midline tenderness, no CVA tenderness. SKIN: no rashes and no bruising UPPER EXTREMITIES: upper extremities are grossly normal. LOWER EXTREMITIES: No pitting edema. Dark discoloration over bilateral shins, DPs, PTs 2/4, flexion/extension of hip, knee, ankle, EHL 5/5 bilaterally. NEURO EXAM: Normal sensorium, cranial nerves II-XII grossly intact, normal speech, no gross weakness of arms, no gross weakness of legs. Course ED COURSE: Vital signs were reviewed and showed tachycardia and hypotension. The patients medical record was reviewed The above diagnostic studies were performed and reviewed. ED treatments and interventions as stated above. 1114: The patient was evaluated in room C5 by Dr. Jon, the resident under my direction, and a complete history and physical examination were performed. 1131: I evaluated the patient in room C5, and a complete history and physical examination were performed. 1236: Upon reevaluation, the patient's heart rate is down. 1256: I reviewed the patient's case with Dr. Mazariegos, [facility] hospitalist. She will evaluate the patient for further management. 1306: Upon reevaluation, the patient is resting. I discussed my findings with the patient and she understands and agrees with the treatment plan. Based on the patients age, coexisting illnesses, exam and lab findings the decision to treat as an inpatient was made. The patient remained stable while under my care. The patient will be evaluated for further management. Consultations Consultation #1: Dr. Mazariegos, [facility] hospitalist Time: 12:56 Administered Medications Diltiazem HCl 125 mg/ Dextrose 125 mls @ 0 mls/hr IV .Q0M [facility]; Protocol Stop: 12/30/18 11:59 Last Admin: 11/30/18 12:22 Dose: 5 mg/hr, 5 mls/hr Documented by: [id number] Cosigned by: [id number] Discontinued Medications Amoxicillin/Clavulanate Potassium (Augmentin 875mg) 1 tab PO NOW ONE Stop: 11/30/18 13:49 Last Admin: 11/30/18 14:16 Dose: Not Given Documented by: [id number] Diltiazem HCl (Cardizem) 10 mg IV NOW STA Stop: 11/30/18 11:58 Last Admin: 11/30/18 12:22 Dose: 5 mg Documented by: [id number] Cosigned by: [id number] Sodium Chloride (Nss) 500 mls @ 999 mls/hr IV .Q31M JENNY Stop: 11/30/18 12:00 Last Infusion: 11/30/18 12:55 Dose: 0 mls/hr Documented by: [id number] Admin: 11/30/18 12:10 Dose: 999 mls/hr Documented by: [id number] Ketorolac Tromethamine (Toradol) 10 mg IV NOW ONE Stop: 11/30/18 12:52 Last Admin: 11/30/18 12:59 Dose: 10 mg Documented by: [id number] Medical Decision Making Differential Diagnosis Etiologies such as shingles, musculoskeletal pain, pericarditis, myocarditis, cardiac ischemia, pericardial tamponade, pneumonia, pneumothorax, pleural effusion, hemothorax, pleurisy, aortic pathology, pulmonary embolism, intra- abdominal process, as well as others were considered. Medical Records Attestation: I reviewed the patient's medical records. Home Medications Current Medication List: was personally reviewed by me Laboratory Data Attestation: I reviewed the patient's lab results. Result diagrams: 11/30/18 11:52 11/30/18 11:52 Lab Results 11/30/18 11/30/18 Range/Units 11:52 11:52 WBC 7.88 (4.8-10.8) K/uL RBC 4.23 (4.2-5.4) M/uL Hgb 14.5 (12.0-16.0) g/dL Hct 41.7 (37-47) % MCV 98.6 (80-100) fL MCH 34.3 H (25-34) pg MCHC 34.8 (32-36) g/dL RDW Std Deviation 50.2 H (36.4-46.3) fL RDW Coeff of [place] 14.1 (11.5-14.5) % Plt Count 218 (130-400) K/uL MPV 11.4 H (7.4-10.4) fL Immature Gran % (Auto) 0.1 % Neut % (Auto) 77.6 % Lymph % (Auto) 12.2 % [place] % (Auto) 9.3 % Eos % (Auto) 0.5 % Baso % (Auto) 0.3 % Immature Gran # (Auto) 0.01 (0.00-0.02) K/uL Neut # (Auto) 6.12 (1.4-6.5) K/uL Lymph # (Auto) 0.96 L (1.2-3.4) K/uL [place] # (Auto) 0.73 H (0.11-0.59) K/uL Eos # (Auto) 0.04 (0-0.5) K/uL Baso # (Auto) 0.02 (0-0.2) K/uL Sodium 135 L (136-145) mmol/L Potassium 4.1 (3.5-5.1) mmol/L Chloride 104 (98-107) mmol/L Carbon Dioxide 22 (21-32) mmol/L Anion Gap 9.0 (3-11) BUN 37 H (7-18) mg/dl Creatinine 1.07 (0.6-1.2) mg/dl Est Cr Clr Drug Dosing Not Reportable Est GFR ( Amer) 60.5 Est GFR (Non-Af Amer) 52.2 BUN/Creatinine Ratio 34.4 H (10-20) Glucose 92 (70-99) mg/dl Calcium 9.4 (8.5-10.1) mg/dl Total Bilirubin 0.6 (0.2-1) mg/dl AST 30 (15-37) U/L ALT 29 (12-78) U/L Alkaline Phosphatase 161 H (45-117) U/L Troponin I < 0.015 (0-0.045) ng/ml Total Protein 8.0 (6.4-8.2) gm/dl Albumin 3.7 (3.4-5.0) gm/dl Globulin 4.3 H (2.5-4.0) gm/dl Albumin/Globulin Ratio 0.9 (0.9-2) Lipase 142 (73-393) U/L Specimen Hemolysis Imaging Data Radiologist's Impression: Radiology results as stated below per my review and the radiologist's interpretation: XR chest 1V portable HISTORY: 73 years-old Female Chest Pain acute atypical chest pain COMPARISON: Chest and rib radiographs 11/26/2017, chest CT 04/13/2018 TECHNIQUE: Portable AP view of the chest FINDINGS: Cardiac silhouette is enlarged, unchanged. Calcification the thoracic aortic arch. There is no pneumothorax, pleural effusion, focal airspace consolidation or overt pulmonary edema. Linear subsegmental right suprahilar densities are suggestive of atelectasis/scarring. Degenerative changes of the shoulders and spine. IMPRESSION: Cardiomegaly without acute process. The above report was generated using voice recognition software. It may contain grammatical, syntax or spelling errors. Electronically signed by: Sree Sr M.D. 11/30/2018 11:30 AM ECG Data Attestation: I personally reviewed and interpreted this ECG as follows: Indication: palpitations Rate (beats per minute): 129 Rhythm: atrial fibrillation (with RVR) Findings: + PVC and + left axis deviation Blood Pressure Blood Pressure Findings: Low blood pressure Blood Pressure Disposition: further management by hospitalist MDM Narrative Patient is a 73-year-old female referred by PCP as she was found to be t achycardic and hypotensive. On arrival she is found to be in A. fib with RVR with systolic blood pressures in the low 90s. Heart rate was in the 140s. She was complaining of chest pain but this was purely reproducible on exam. Labs showed no significant leukocytosis or anemia. BMP along with bilirubin LFTs was unremarkable. Troponin was negative. Lipase is normal. Chest x-ray was unremarkable. Patient was given IV fluids. She was given an IV bolus of Cardizem at 5 mg. She was placed on a Cardizem drip at 5 mg/h. Heart rate trended down from the 140s-105. Systolic blood pressure trended up to 110. Patient was updated at bedside and discussed with the hospitalist and will be admitted for further workup of her A. fib with RVR on Cardizem drip. Impression & Plan Atrial fibrillation with RVR, Chest pain, Weakness Critical Care Time I have personally spent greater than 35 minutes of critical care time in the direct management of this patient. This includes bedside care, interpretation of diagnostic studies, and testing, discussion with consultants, patient, and family members, and other required patient management activities. This 35 minutes is in excess of all separately billable procedures. Critical Care Time: Yes Total Critical Care Time: 35 Discharge Plan Visit Data Chief Complaint: Referred by Doctor Stated Complaint: REFERRED BY ED Provider: Luke Lopez ED Midlevel Provider: Matt Jon Discharge Problem: Atrial fibrillation with RVR, Chest pain, Weakness Patient Disposition: Being Evaluated by Hospitalist Forms Stand Alone Forms: My [facility] Prescriptions Prescriptions: No Action multivitamin [Multiple Vitamins] Tablet 1 tab PO QAM RF: 0 furosemide 40 mg tablet 40 mg PO QAM RF: 0 carvedilol 6.25 mg tablet 1 tab PO BID RF: 0 minocycline 100 mg capsule 200 mg PO BID RF: 0 prednisone 5 mg tablet 5 mg PO QAM RF: 0 cephalexin 125 mg/5 mL suspension for reconstitution 5 ml PO QID RF: 0 metronidazole 500 mg tablet 500 mg PO DIRECTED RF: 0 oxycodone-acetaminophen 5-325 mg tablet 1 tab PO UD PRN (Reason: Pain) RF: 0 benzonatate [Tessalon Perles] 100 mg Capsule 100 mg PO BID PRN (Reason: Cough) RF: 0 furosemide 20 mg tablet 20 mg PO DIRECTED PRN (Reason: Fluid Retention) RF: 0 lisinopril 40 mg tablet 40 mg PO QAM RF: 0 levothyroxine 112 mcg tablet 1 tab PO QAM RF: 0 tinidazole 500 mg tablet 500 mg PO DIRECTED RF: 0 Xarelto 20 mg tablet 20 mg PO QPM RF: 0 Referrals Referrals: Qasim Rangel MD [Primary Care Provider] - Discharge Problem: Chest pain Qualifiers: Chest pain type: unspecified Qualified Code(s): R07.9 - Chest pain, unspecified The scribe's documentation has been prepared under my direction and personally reviewed by me in its entirety. I confirm that the note above accurately reflects all work, treatment, procedures, and medical decision making performed by me.
[2018-11-30] MEDS ORDERED: ONDANSETRON INJ 2 MG/ML 2 ML VIAL IV PRN (17:41)
[2018-11-30] MEDS ORDERED: ACETAMINOPHEN 325 MG TAB PO PRN (17:41)
[2018-11-30] MEDS: KETOROLAC TROMETHAMINE 15 MG/ML VIAL IV PRN (18:51)
[2018-12-01] MEDS: KETOROLAC TROMETHAMINE 15 MG/ML VIAL IV PRN ×3 (00:56→17:35)
[2018-12-01 04:35] LABS: Hematocrit (blood only) 35.1 % (37-47); Hemoglobin 11.9 g/dL (12.0-16.0); Mean Corpuscular Hgb Conc 33.9 g/dL (32-36); Mean Corpuscular Volume 99.4 fL (80-100); Mean Platelet Volume 11.5 fL (7.4-10.4); Platelet Count 179 K/uL (130-400); RDW Coefficient of Variation 14.2 % (11.5-14.5); RDW Standard Deviation 51.2 fL (36.4-46.3); Red Blood Count 3.53 M/uL (4.2-5.4); White Blood Count 4.71 K/uL (4.8-10.8)
[2018-12-01 04:53] LABS: Alanine Aminotransferase 23 U/L (12-78); Albumin Level 2.9 gm/dl (3.4-5.0); Aspartate Aminotransferase 17 U/L (15-37); BUN Creatinine Ratio 36.5 (10-20); Blood Urea Nitrogen 36 mg/dl (7-18); Calcium 8.5 mg/dl (8.5-10.1); Carbon Dioxide 26 mmol/L (21-32); Chloride 106 mmol/L (98-107); Creatinine Clr Calc Pharmacy 61.8 ml/min; Est GFR (African American) 66.4; Est GFR (Non-African American) 57.3; Glucose 86 mg/dl (70-99); Magnesium 2.5 mg/dl (1.8-2.4); Potassium 4.1 mmol/L (3.5-5.1); Sodium 136 mmol/L (136-145)
[2018-12-01 05:08] LABS: Albumin Globulin Ratio 0.9 (0.9-2); Alkaline Phosphatase 122 U/L (45-117); Bilirubin,Total 0.5 mg/dl (0.2-1); Globulin 3.2 gm/dl (2.5-4.0); Total Protein 6.1 gm/dl (6.4-8.2); Troponin I < 0.015 ng/ml (0-0.045)
[2018-12-01] MEDS ORDERED: NITROGLYCERIN SL 0.4 MG/TAB TAB ONE (06:08)
[2018-12-01] MEDS: NITROGLYCERIN SL 0.4 MG/TAB TAB SL PRN ×2 (06:13→06:18)
--- NOTE | 2018-12-01 06:34 | XRay Report ---
XR chest 1V portable CLINICAL HISTORY: chest pain dyspnea COMPARISON STUDY: 11/30/2018 FINDINGS: Mild stable cardiomegaly. Diaphragms smooth. Lungs are grossly clear. Several pre-existing right old rib fractures. IMPRESSION: Chronic change. No acute process. The above report was generated using voice recognition software. It may contain grammatical, syntax or spelling errors. Electronically signed by: Ministerio Bowen M.D. 12/01/2018 6:33 AM
[2018-12-01 06:47] LABS: BUN Creatinine Ratio 33.5 (10-20); Blood Urea Nitrogen 35 mg/dl (7-18); Calcium 8.9 mg/dl (8.5-10.1); Carbon Dioxide 24 mmol/L (21-32); Chloride 105 mmol/L (98-107); Creatinine Clr Calc Pharmacy 59.4 ml/min; Est GFR (African American) 63.3; Est GFR (Non-African American) 54.6; Glucose 89 mg/dl (70-99); Potassium 4.1 mmol/L (3.5-5.1); Sodium 135 mmol/L (136-145)
[2018-12-01 06:51] LABS: INR 1.1 (0.9-1.1); Partial Thromboplastin Time 26.7 Seconds (21.0-31.0); Prothrombin Time 11.4 Seconds (9.0-12.0); Troponin I < 0.015 ng/ml (0-0.045)
[2018-12-01] MEDS ORDERED: OPTIRAY 320 125ml IV PRN (06:51)
--- NOTE | 2018-12-01 06:56 | CT Scan Report ---
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 Acute strokelike symptoms TECHNIQUE: Multiple axial CT images of the head were obtained without contrast. A dose lowering tech nique was utilized adhering to the principles of ALARA. COMPARISON: CT head 11/27/2017. FINDINGS: No acute intracranial hemorrhage, midline shift, intracranial mass, hydrocephalus, territorial ischem ia or abnormal extra-axial collection. Mild age-related involutional changes. The calvarium is intact . The paranasal sinuses, mastoid air cells, and middle ear cavities are clear. IMPRESSION: No acute intracranial abnormality. The above report was generated using voice recognition software. It may contain grammatical, syntax o r spelling errors. Electronically signed by: Sree Sr M.D. 12/01/2018 6:55 AM
[2018-12-01 06:58] LABS: Basophils # (auto) 0.02 K/uL (0-0.2); Basophils % (auto) 0.4 %; Eosinophils # (auto) 0.04 K/uL (0-0.5); Eosinophils % (auto) 0.9 %; Hematocrit (blood only) 38.5 % (37-47); Hemoglobin 13.1 g/dL (12.0-16.0); Lymphocytes # (auto) 1.11 K/uL (1.2-3.4); Lymphocytes % (auto) 23.8 %; Mean Corpuscular Volume 99.7 fL (80-100); Mean Platelet Volume 11.6 fL (7.4-10.4); Monocytes # (auto) 0.48 K/uL (0.11-0.59); Monocytes % (auto) 10.3 %; Neutrophils # (auto) 3.02 K/uL (1.4-6.5); Neutrophils % (auto) 64.6 %; Platelet Count 192 K/uL (130-400); RDW Coefficient of Variation 14.1 % (11.5-14.5); RDW Standard Deviation 50.8 fL (36.4-46.3); Red Blood Count 3.86 M/uL (4.2-5.4); White Blood Count 4.67 K/uL (4.8-10.8)
[2018-12-01 07:10] LABS: Alanine Aminotransferase 26 U/L (12-78); Albumin Globulin Ratio 0.8 (0.9-2); Albumin Level 3.2 gm/dl (3.4-5.0); Alkaline Phosphatase 141 U/L (45-117); Aspartate Aminotransferase 22 U/L (15-37); Bilirubin,Total 0.6 mg/dl (0.2-1); Globulin 3.9 gm/dl (2.5-4.0); Magnesium 2.5 mg/dl (1.8-2.4); Total Protein 7.1 gm/dl (6.4-8.2)
--- NOTE | 2018-12-01 07:12 | CT Scan Report ---
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 Acute strokelike symptoms COMPARISON STUDY: CT head of same day TECHNIQUE: Following the IV administration of 119 mL of Optiray 320, CT angiogram of the head and nec k was performed from the aortic arch to the skull apex. Images are reviewed in the axial, sagittal, a nd coronal planes. 3-D MIPS images are created and assessed. IV contrast was administered without com plication. All measurements were calculated based on NASCET criteria. A dose lowering technique was utilized adhering to the principles of ALARA. CT DOSE: 1258.82 mGy.cm FINDINGS: The imaged opacified pulmonary arterial tree is unremarkable. Three-vessel morphology of aortic arch. Patency of the imaged bilateral subclavian arteries. The imaged bilateral common carotid arteries ar e widely patent and within normal limits. The right carotid bulb and right ICA appear patent and unre markable. There is mild tortuosity noted about the distal cervical segment right ICA. The left caroti d bulb demonstrates mild to moderate mixed plaque formation. Patency of the carotid bulbs and left IC A. The bilateral middle and anterior cerebral arteries are widely patent. The vertebral arteries appear to be codominant. There is mild calcified plaque noted about the V4 seg ment left vertebral artery without high-grade stenosis. Mild tortuosity about the proximal V1 segment right vertebral artery. There is no aneurysm, dissection, high-grade stenosis or proximal branch occ lusion identified. The basilar artery and bilateral posterior cerebral arteries are unremarkable and widely patent. Cerebral venous sinuses are patent and unremarkable. Indeterminate 3 mm solid nodule of the right upper lobe. No pneumothorax. Multinodular goiter. No farrah nopathy of the neck. Airway appears patent. Degenerative changes of the spine. Mastoid air cells and middle ear cavities are clear. Mild mucosal thickening about the left maxillary sinus. IMPRESSION: 1. Unremarkable CTA of the head and neck without aneurysm, dissection, high-grade stenosis or proxima l branch occlusion. 2. Mild mixed plaque formation about the left carotid bulb results in less than 50% stenosis of the p roximal left ICA. The above report was generated using voice recognition software. It may contain grammatical, syntax o r spelling errors. Electronically signed by: Sree Sr M.D. 12/01/2018 7:11 AM
[2018-12-01] MEDS ORDERED: ACETAMINOPHEN 65 ML IV ONE (07:17)
--- NOTE | 2018-12-01 07:35 | Critical Care Consultation ---
Date of Consultation December 01, 2018 Assessment & Plan (1) Unilateral weakness: After response to CODE PURPLE, patient was noted to have described a "crushing" LEFT-sided chest pain. This pain is reproducible on exam. She has a long-standing history of similar chest pain. Typically, she uses [id number]-[id number] topical remedies for her pain. Of concern, however, the patient does have LEFT upper and lower extremity weakness with positive drift to the LEFT upper extremity. No other focal neurological deficits are appreciated. Patient was sent emergently to the CT suite for CT of the head as well as CTA of the head and neck. I did speak with Dr. Aguayo of [facility], the on-call tele-neurologist. She did review all imaging studies. I personally reviewed all images as well as reports which demonstrated no acute findings otherwise. Patient did show improvement in strength as well as range of motion of the LEFT upper and lower extremities. Per recommendation, MRI of the brain was ordered. In addition, I did add Tylenol for the patient's pain. A question of the patient does have a degree of underlying anxiety which is certainly contributing to today's presentation. Regardless, she did undergo complete neurological evaluation per stroke alert protocols. I did discuss the case with the on-call neurologist who will see the patient shortly in hospital. Additionally, I did relay this information to the attending hospitalist multi site leasing consultant. Will defer to reinstitution of Xarelto as well as plus/minus antiplatelets per neurology/attending service evaluation. I have personally spent 35 minutes of critical care time in the direct management of this patient. This is a life/limb threatening event. This includes time spent evaluating patient, direct bedside care, chart review, placing orders, interpretation of diagnostic studies, discussion with consultants, pat ient, and family members, as well as other required patient management activities. This time is exclusive of all separately billable procedures, and teaching time and separate from and in addition to any other critical care service time. (2) Chronic, continuous use of opioids: (3) Hypothyroidism: (4) Chest pain: (5) Atrial fibrillation with RVR: Supervising Physician Co-Signing Physician Notes Kelli Thompson discussed this patient with me. I agree with assessment and plan of Kelli Thompson PA-C. History of Present Illness Attending Physician: Angela Mazariegos DO Patient is a 73-year-old female who was admitted to this facility on 11/30 with A. fib with RVR. Apparently, the patient has a long-standing history of A. fib and had been anticoagulated on Xarelto most recently. She was having concerns for symptomatic tachyarrhythmia and was directed to the emergency department from her primary care provider's office. In the emergency department, she was found to have heart rates in the 130s-140s. She was placed on a Cardizem drip with appropriate control of her heart rate. She has done well throughout the night, however she developed LEFT-sided chest pain at approximately 6:00 this morning followed by LEFT arm and leg weakness. A CODE PURPLE was called by nursing staff. Upon arrival in the room, the patient appears uncomfortable, however she was able to provide history and was easily directable. She was complaining of pain to the LEFT-sided chest which is reproducible on exam. She had LEFT-sided weakness to the LEFT upper and lower extremities. No other focal neurological deficits were appreciated on exam. Orders are placed for CT of the head as well as CT angiogram of the head and neck as the patient did have morning labs which demonstrated normal renal function. Upon return from CT scan, the patient had improvement movement of the LEFT upper and lower extremities. I did discuss the case with Dr. Aguayo of [facility]. She reviewed all images. No acute findings were appreciated. She suggests no intervention at this time, particularly no TPA. She does recommend MRI when patient can tolerate. Otherwise, she has no further suggestion. I did discuss the case with the on-call neurologist, Dr. Villasenor. He will evaluate the patient upon arrival in this facility. I did update hospitalist as to events overnight. Additionally, on review the patient's EMR, the patient does take Xarelto at home. There is question as to restarting this medication. Will defer to neurology and primary service at this time. Allergies Allergy/AdvReac Type Severity Reaction Status Date / Time codeine AdvReac Intermediate SEVERE GI Verified 11/30/18 13:39 SYMPTOMS Home Medications Home Medications Medication Instructions Recorded Confirmed Type benzonatate [Tessalon Perles] 100 mg PO BID PRN 11/30/18 11/30/18 History carvedilol 1 tab PO BID 11/30/18 11/30/18 History cephalexin 5 ml PO QID 11/30/18 11/30/18 History furosemide 20 mg PO DIRECTED PRN 11/30/18 11/30/18 History furosemide 40 mg PO QAM 11/30/18 11/30/18 History levothyroxine 1 tab PO QAM 11/30/18 11/30/18 History lisinopril 40 mg PO QAM 11/30/18 11/30/18 History metronidazole 500 mg PO DIRECTED 11/30/18 11/30/18 History minocycline 200 mg PO BID 11/30/18 11/30/18 History multivitamin [Multiple Vitamins] 1 tab PO QAM 11/30/18 11/30/18 History oxycodone-acetaminophen 1 tab PO UD PRN 11/30/18 11/30/18 History prednisone 5 mg PO QAM 11/30/18 11/30/18 History rivaroxaban [Xarelto] 20 mg PO QPM 11/30/18 11/30/18 History tinidazole 500 mg PO DIRECTED 11/30/18 11/30/18 History Patient History Medical History S/P tooth extraction Hyponatremia Chronic, continuous use of opioids Ambulatory dysfunction Multinodular goiter Hypothyroidism (Chronic) Atrial fibrillation with RVR (Acute) Weakness (Acute) Chronic fatigue syndrome (Chronic) Atrial fibrillation CHF (congestive heart failure) (Chronic) Chronic anticoagulation (Chronic) History of uterine fibroid Surgical History H/O breast augmentation Social History Communication Ability: Effective Beliefs That Will Affect Care: None Current Living Situation: Alone current occupational status: retired and disabled Other Information That Helps Us Care for You: No other: Disabled in her 50s. 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 All else were negative. Physical Exam Vital Signs (Past 24 Hours): Last Vital Signs Temp 36.5 C 12/01/18 04:18 Pulse 81 12/01/18 04:18 Resp 18 12/01/18 04:18 BP 114/78 12/01/18 04:18 Pulse Ox 98 12/01/18 04:18 Physical Exam: VITAL SIGNS - Vital signs and nursing notes were reviewed. GENERAL - 73-year-old female appearing her stated age who is in moderate distress. Communicates well with provider and answers questions appropriately. SKIN - Bluish discoloration of the face consistent w/ h/o minocycline use (per patient). HEAD - NC/AT. EYES - PERRL with EOMI bilaterally. Sclera anicteric. Palpebral conjunctiva pink and moist with no injection noted. EARS - No deformities of external structures noted on gross examination bilaterally. No pain elicited with palpation of the tragus bilaterally. NOSE - Midline and without cyanosis. No epistaxis or purulent drainage noted. MOUTH/OROPHARYNX - Without perioral cyanosis. Buccal mucosa pink and moist and without leukoplakia. Tongue midline with equal elevation of palate bilaterally. No tonsillar hypertrophy, erythema, or exudates noted. Poor dentition noted. NECK - Neck with FROM. Supple to palpation. LUNGS - Chest wall symmetric without accessory muscle use, intercostals retractions, or central cyanosis. Normal vesicular breath sounds CTA B/L. No wheezes, rales, or rhonchi appreciated. CARDIAC - RRR with S1/S2. No murmur, rubs, or gallops appreciated. ABDOMEN - Abdominal contour flat without pulsations or visible masses. BS normoactive all four quadrants. No tenderness, palpable masses, hepatosplenomegaly, or ascites noted. EXTREMITIES - No clubbing or peripheral cyanosis. No pretibial edema present. +3/5 radial and dorsalis pedis pulses palpated throughout. +2/5 strength appreciated of the LEFT upper and lower extremity with +5/5 strength appreciated to the RIGHT upper and lower extremity. NEUROLOGIC - Cranial nerves II through XII grossly intact. Sensory intact to light touch throughout. Patellar reflexes +2/4. As above with weakness to the LEFT upper and lower extremity. Otherwise, sensation is completely intact. Range of motion with proximal weakness to the LEFT upper extremity and lower extremity. Improvement in range of motion after return from CT. PSYCH - A&Ox3 and cooperates fully with examiner. Anxious. Results & Data Diagnostic Findings Radiology imaging and reports were reviewed by myself. Radiologist's interpretations are as follows: CT head/brain wo con CLINICAL HISTORY: 73 years-old Female with cva. Acute strokelike symptoms TECHNIQUE: Multiple axial CT images of the head were obtained without contrast. A dose lowering technique was utilized adhering to the principles of ALARA. COMPARISON: CT head 11/27/2017. FINDINGS: No acute intracranial hemorrhage, midline shift, intracranial mass, hydrocephalus, territorial ischemia or abnormal extra-axial collection. Mild age-related involutional changes. The calvarium is intact. The paranasal sinuses, mastoid air cells, and middle ear cavities are clear. IMPRESSION: No acute intracranial abnormality. 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 Acute strokelike symptoms COMPARISON STUDY: CT head of same day TECHNIQUE: Following the IV administration of 119 mL of Optiray 320, CT angiogram of the head and neck was performed from the aortic arch to the skull apex. Images are reviewed in the axial, sagittal, and coronal planes. 3-D MIPS images are created and assessed. IV contrast was administered without complication. All measurements were calculated based on NASCET criteria. A dose lowering technique was utilized adhering to the principles of ALARA. CT DOSE: 1258.82 mGy.cm FINDINGS: The imaged opacified pulmonary arterial tree is unremarkable. Three-vessel morphology of aortic arch. Patency of the imaged bilateral subclavian arteries. The imaged bilateral common carotid arteries are widely patent and within normal limits. The right carotid bulb and right ICA appear patent and unremarkable. There is mild tortuosity noted about the distal cervical segment right ICA. The left carotid bulb demonstrates mild to moderate mixed plaque formation. Patency of the carotid bulbs and left ICA. The bilateral middle and anterior cerebral arteries are widely patent. The vertebral arteries appear to be codominant. There is mild calcified plaque noted about the V4 segment left vertebral artery without high-grade stenosis. Mild tortuosity about the proximal V1 segment right vertebral artery. There is no aneurysm, dissection, high-grade stenosis or proximal branch occlusion identified. The basilar artery and bilateral posterior cerebral arteries are unremarkable and widely patent. Cerebral venous sinuses are patent and unremarkable. Indeterminate 3 mm solid nodule of the right upper lobe. No pneumothorax. M ultinodular goiter. No adenopathy of the neck. Airway appears patent. Degenerative changes of the spine. Mastoid air cells and middle ear cavities are clear. Mild mucosal thickening about the left maxillary sinus. IMPRESSION: 1. Unremarkable CTA of the head and neck without aneurysm, dissection, high- grade stenosis or proximal branch occlusion. 2. Mild mixed plaque formation about the left carotid bulb results in less than 50% stenosis of the proximal left ICA. The above report was generated using voice recognition software. It may contain grammatical, syntax or spelling errors CT angio neck with con, CT angio head w con CLINICAL HISTORY: 73 years-old Female with cva. Acute strokelike symptoms COMPARISON STUDY: CT head of same day TECHNIQUE: Following the IV administration of 119 mL of Optiray 320, CT angiogram of the head and neck was performed from the aortic arch to the skull apex. Images are reviewed in the axial, sagittal, and coronal planes. 3-D MIPS images are created and assessed. IV contrast was administered without complication. All measurements were calculated based on NASCET criteria. A dose lowering technique was utilized adhering to the principles of ALARA. CT DOSE: 1258.82 mGy.cm FINDINGS: The imaged opacified pulmonary arterial tree is unremarkable. Three-vessel morphology of aortic arch. Patency of the imaged bilateral subclavian arteries. The imaged bilateral common carotid arteries are widely patent and within normal limits. The right carotid bulb and right ICA appear patent and unremarkable. There is mild tortuosity noted about the distal cervical segment right ICA. The left carotid bulb demonstrates mild to moderate mixed plaque formation. Patency of the carotid bulbs and left ICA. The bilateral middle and anterior cerebral arteries are widely patent. The vertebral arteries appear to be codominant. There is mild calcified plaque noted about the V4 segment left vertebral artery without high-grade stenosis. Mild tortuosity about the proximal V1 segment right vertebral artery. There is no aneurysm, dissection, high-grade stenosis or proximal branch occlusion identified. The basilar artery and bilateral posterior cerebral arteries are unremarkable and widely patent. Cerebral venous sinuses are patent and unremarkable. Indeterminate 3 mm solid nodule of the right upper lobe. No pneumothorax. Multinodular goiter. No adenopathy of the neck. Airway appears patent. Degenerative changes of the spine. Mastoid air cells and middle ear cavities are clear. Mild mucosal thickening about the left maxillary sinus. IMPRESSION: 1. Unremarkable CTA of the head and neck without aneurysm, dissection, high- grade stenosis or proximal branch occlusion. 2. Mild mixed plaque formation about the left carotid bulb results in less than 50% stenosis of the proximal left ICA. The above report was generated using voice recognition software. It may contain grammatical, syntax or spelling errors (1) Chest pain Chest pain type: unspecified Qualified Code(s): R07.9 - Chest pain, unspecified
--- NOTE | 2018-12-01 08:42 | Neurology Consultation ---
Date of Consultation December 01, 2018 Assessment & Plan (1) Unilateral weakness: Patient had acute onset of left arm and leg weakness (without face weakness) of a near plegic nature. This resolved completely within [address] scan of the head showed no acute changes CT angiography of the head neck were largely unremarkable. The very mild stenosis of the proximal left internal carotid artery would have nothing to do with her left-sided weakness. Currently her neurologic examination is entirely within normal limits with no focal findings, meningeal signs, or encephalopathy. A very small stroke or TIA is certainly possible. However, given her history I am wondering about psychiatric origin to her left-sided weakness. Risk factors for stroke include atrial fibrillation. (2) Atrial fibrillation with RVR: Patient has longstanding atrial fibrillation with variable and rapid ventricular rate. She is on Xarelto. (3) Chronic fatigue syndrome: Patient has a history of chronic fatigue syndrome and autoimmune diseases. I do not have a handle on what these conditions specifically are but they lead to her being disabled in her 50s. She still has fatigue. She does not have cognitive problems as far as I can ascertain. Recommendations: 1. MRI of the brain without contrast to evaluate for acute stroke. 2. Consider echocardiogram if not already ordered. 3. Continue anticoagulation because of chronic atrial fibrillation (on Xarelto). 4. I am uncertain if the patient needs an antiplatelet medication at this time but will defer this decision to after the MRI. Overall, I spent a total of 65 minutes with this case including review of records, review of CT reports and films,Direct evaluation the patient at bedside, and discussion of the case with the patient, clinical staff, and Dr. Springer, including differential diagnosis and treatment options. History of Present Illness Reason for Consultation: Patient is a 73-year-old, was asked to see at the request of Phillip Thompson PA-C, for neurologic consultation regarding stroke versus TIA Requesting Physician: Phillip Thompson PA-C Attending Physician: Sam Springer History of Present Illness This patient has no history of stroke, hypertension, diabetes, or tobacco use, but does have a longstanding history of atrial fibrillation with rapid ventricular rate. About 6-8 years ago she was diagnosed with congestive heart failure. She is chronically been on Xarelto but there is an issue whether she was taking this medication more recently. She has no history of spine pain, cognitive issues, urinary incontinence, or balance/walking problems. Patient has a diagnosis of chronic fatigue syndrome and other (unspecified) autoimmune diseases which is made her disabled since her 50s. Patient has noted left-sided chest pain for several months intermittently. She came to the emergency room November 30 with heart palpitations, lightheadedness/dizziness, and left foot numbness, at the request of her primary care physician, Dr. Rangel. She arrived to the emergency room on November 30 at 1105 with a temperature 36.7, pulse of 137, respiratory rate 16, blood pressure 92/73, and O2 saturation 98 percent. On examination she had no weakness or focal neurologic signs and she did not have the left foot numbness anymore. Chest x-ray was unremarkable. CBC and Chem profile were unremarkable. At 0600 she noted increased left chest pain. At 0620 the nurse (who I interviewed) stated that the patient had very severe chest pain and her left arm and leg were weak. The nurse noted that the patient could not hold the arm and leg up off the bed and had a positive drift. The patient had no pain or numbness in these limbs but noted significant weakness. She had no speech or vision problems and she was not confused. The right side was asymptomatic. She feels that her left chest pain was about as worse as it ever was. The nurse reports that there was No facial weakness on the left. CT scan of the head was unremarkable. CT angiography of the head neck were unremarkable with no significant stenoses or vessel anomalies except for some very mild left carotid bulb narrowing of less than 50 percent. By the time the CT scans were finished she felt the arm and leg were back to normal and a been normal ever since. Overall the weakness lasted somewhere between 20 in 30 minutes. Currently she is resting comfortably and is in chronic AFib with a variable rate Allergies Allergy/AdvReac Type Severity Reaction Status Date / Time codeine AdvReac Intermediate SEVERE GI Verified 11/30/18 13:39 SYMPTOMS Home Medications Home Medications Medication Instructions Recorded Confirmed Type benzonatate [Tessalon Perles] 100 mg PO BID PRN 11/30/18 11/30/18 History carvedilol 1 tab PO BID 11/30/18 11/30/18 History cephalexin 5 ml PO QID 11/30/18 11/30/18 History furosemide 20 mg PO DIRECTED PRN 11/30/18 11/30/18 History furosemide 40 mg PO QAM 11/30/18 11/30/18 History levothyroxine 1 tab PO QAM 11/30/18 11/30/18 History lisinopril 40 mg PO QAM 11/30/18 11/30/18 History metronidazole 500 mg PO DIRECTED 11/30/18 11/30/18 History minocycline 200 mg PO BID 11/30/18 11/30/18 History multivitamin [Multiple Vitamins] 1 tab PO QAM 11/30/18 11/30/18 History oxycodone-acetaminophen 1 tab PO UD PRN 11/30/18 11/30/18 History prednisone 5 mg PO QAM 11/30/18 11/30/18 History rivaroxaban [Xarelto] 20 mg PO QPM 11/30/18 11/30/18 History tinidazole 500 mg PO DIRECTED 11/30/18 11/30/18 History Patient History Medical History S/P tooth extraction Hyponatremia Chronic, continuous use of opioids Ambulatory dysfunction Multinodular goiter Hypothyroidism Atrial fibrillation with RVR (Acute) Weakness (Acute) Chronic fatigue syndrome (Chronic) Atrial fibrillation CHF (congestive heart failure) (Chronic) Chronic anticoagulation (Chronic) History of uterine fibroid Surgical History H/O breast augmentation Social History Preferred Language: Telugu Communication Ability: Effective 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 [employer] Feels Safe at Home: Yes Safety Concerns: Feels Safe At This Time Smoking Status: Never smoker Hx Alcohol Use: No Hx Substance Use: No Review of Systems Constitutional: + fatigue; no fever and no weakness Eyes: no diplopia, no eye pain and no worsening vision Ear, Nose, Mouth, Throat: + hearing loss; no ear pain, no tinnitus and no dysphagia Respiratory: no cough and no dyspnea Cardiovascular: + chest pain and + palpitations; no dyspnea Gastrointestinal: no abdominal pain, no nausea and no vomiting Genitourinary (Female): no dysuria, no urinary frequency and no urinary incontinence Musculoskeletal: no back pain, no neck pain, no radicular pain, no myalgia, no muscle weakness and no muscle atrophy Integumentary: + lesions (Increased pigmentation of the face and legs, presumably from chronic minocycline usage); no rash Neurologic: no gait abnormality, no falls, no localized weakness, no generalized weakness, no tingling, no numbness, no tremor(s), no abnormal movements, no dizziness, no headache(s), no abnormal speech, no behavioral changes, no confusion and no memory loss Psychiatric: no depression, no abnormal sleep pattern, no anxiety, no difficulty concentrating, no confusion and no hallucinations Endocrine: + fatigue; no flushing Hematologic / Lymphatic: no easy bleeding and no easy bruising Allergy / Immunological: no urticaria Physical Exam Vital Signs (Past 24 Hours): Last Vital Signs Temp 36.5 C 12/01/18 07:33 Pulse 107 H 12/01/18 07:33 Resp 20 12/01/18 07:33 BP 105/70 12/01/18 07:33 Pulse Ox 97 12/01/18 07:33 Physical Exam: The patient is right-handed. The patient is awake, alert, and attentive. Speech is normal without any aphasia or dysarthria. Mentation and thought processes are intact, with full orientation and normal fund of knowledge. Attention and concentration are normal. Mood and affect are normal and appropriate. General appearance and grooming are normal. Short and long-term memory are intact. The discs are sharp with positive venous pulsations bilaterally. There are no exudates, hemorrhages, or blood vessel changes seen. Pupils are 4 mm bilaterally and reactive to light. Extraocular eye muscles are intact without nystagmus. Visual acuity and visual ny seem normal grossly to confrontation. There are no deficits to sensation in the face in all 3 distributions of the fifth cranial nerve bilaterally. Corneal reflexes are positive bilaterally. Facial strength and symmetry was normal bilaterally. Hearing is mild to moderately decreased to voice bilaterally. Palate moves well without asymmetry. There is normal sternocleidomastoid and trapezius (shoulder shrug) strength bilaterally. Tongue is midline with good strength bilaterally. Neck has a full range of motion without discomfort. There are no cervical bruits bilaterally. There are no cranial or ocular bruits. Heart is without murmur. There is a regular rhythm and rate. Cervical, thoracic, and lumbar spine are nontender to palpation. Gait is not tested but stance sitting up in bed is normal although a gives her some extra chest pain. With outstretched arms there is no drift. There are no resting, postural, or action tremors. There is no ataxia with finger to nose testing. There is good facility in the hands. No other abnormal involuntary movements are noted. Motor strength is 5/5 diffusely in the arms bilaterally including deltoids, biceps, triceps, brachioradialis, wrist flexors and extensors, mechanical integrity specialist, and intrinsic hand muscles. Motor strength is 5/5 diffusely in the legs bilaterally including hip flexors, quadriceps, hamstrings, gastrocnemius, tibialis anterior, tibialis posterior, and Peroneii muscles bilaterally. Toe extensors are normal and there is good bulk in the extensor digitorum brevis muscles bilaterally. The limbs have good tone without rigidity or spasticity. There is no atrophy noted in the muscles. Muscle bulk is normal, there is no tenderness to palpation, no myotonia to percussion, and no fasciculations seen. Sensory examination is intact to touch and pin throughout all 4 limbs diffusely. Reflexes are 2/4 in the biceps, triceps, brachioradialis, quadriceps, and Achilles tendons bilaterally. Toes are downgoing with plantar stimulation bilaterally. Peripheral pulses are present and of normal quality distally in all 4 limbs. There is no peripheral edema noted in the limbs.
[2018-12-01] MEDS ORDERED: Nursing to Pharmacy Communication ONE (09:30)
[2018-12-01] MEDS: DOXYCYCLINE HYCLATE 100 MG CAP PO SCH ×2 (10:31→21:12)
[2018-12-01] MEDS: CEROVITE ADV FORMULA TAB PO SCH (10:31)
[2018-12-01] MEDS: predniSONE 5 MG TAB PO SCH (10:32)
--- NOTE | 2018-12-01 10:50 | Cardiology Consultation ---
Date of Consultation December 01, 2018 Assessment & Plan (1) Atrial fibrillation with RVR: 2. Chest pain 3. Reported history of cardiomyopathy 4. Chronic CHF 5. Neurological symptoms 6. Chronic fatigue/pain Patient with a history of atrial fibrillation (no cardiology records available) admitted yesterday with afib with RVR after presenting to PCP with dizziness and shortness of breath. Heart rate has been difficult to control due to hypotension. Unfortunately she did not get her Xarelto yesterday but has been compliant with it as an outpatient. Stroke alert was called this AM. CTA of head/neck unremarkable and neurological symptoms have resolved. Brain MRI is pending. If MRI is negative for acute stroke recommend antiarrhythmic therapy with amiodarone in an attempt to convert to sinus rhythm. Continue diltiazem drip. Continue anticoagulation. Recommend echo. She reports a history of cardiomyopathy, echo last year noted low normal LV systolic function. On exam she is well perfused without signs of heart failure. Chest pain is atypical and reproducible on exam. Troponin is negative. As above recommend obtaining echo. Low suspicion for ACS. Supervising Physician Co-Signing Physician Notes Patient seen and examined. Agree with assessment and plan as outlined by physician registered dental assistant Gila Mendieta. Briefly, Ms. Ford is a 73-year-old woman with a history of atrial fibrillation on anticoagulation, chronic systolic heart failure with resolved systolic dysfunction as of last echocardiogram in 2018. She was admitted in the setting of fatigue, shortness of breath, dizziness and noted atrial fibrillation with RVR at primary care office. Since admission has remained in atrial fibrillation with ventricular rates persistently in the 110s-120s. Started on low-dose diltiazem drip, titration has been limited by relatively low blood pressures. No clear precipitants for atrial fibrillation. Patient endorses prior cardioversion years ago but states that quickly returned to atrial fibrillation. Also reports ischemic workup with catheterization more than 5 years ago and was told had no significant disease. Hospital course complicated by chronic pain, transient left-sided weakness for which stroke alert was called this morning. Symptoms have since resolved. On exam patient appears comfortable, lungs are clear, heart rate irregularly irregular, holosystolic murmur at the apex. No JVD, minimal lower extremity edema with chronic venous stasis changes, distal extremities well-perfused. Do not feel patient's chest pain is cardiac in nature. No clear symptoms at this time from her atrial fibrillation and no evidence of heart failure on exam. We discussed options for management of her AF including cardioversion. At this point recommend further attempts at rate control. Continue to titrate up diltiazem infusion. Continue home carvedilol. Target heart rates less than 100 with rest. Okay with systolic blood pressures in the 90s and 100s as long as asymptomatic. If rate control remains difficult would load with digoxin. Otherwise continue anticoagulation with Xarelto. Echocardiogram pending. History of Present Illness Reason for Consultation: Atrial fibrillation with RVR Attending Physician: Sam Springer History of Present Illness Ms. Ford is a 73 year old female with a medical history of atrial fibrillation, chronic fatigue syndrome, chronic CHF, hypertension, hypothyroidism, chronic opioid use. Yesterday morning she felt dizzy, short of breath and had palpitations. She saw her PCP and was noted to be in atrial fibrillation with RVR and was referred to the ED. Upon arrival she was in atrial fibrillation at 129 bpm. Troponin was negative and no acute changes on EKG. She reports having history of atrial fibrillation diagnosed in [place] about 6-8 years ago. She underwent electrical cardioversion but reports she went back into afib about 2 weeks later. Since then she has been on rate control with carvedilol 6.25 mg BID. She is unsure if she is permanently in afib. She takes Xarelto 20 mg daily for anticoagulation and denies missing any doses recently. She does not currently follow with a entry writer. She also reports a history of a cardiomyopathy and reports her h eart function was "17%" on an echo in [place]. LV function was low normal on echo in November 2017. She believes she underwent cardiac catheterization at the time of her diagnosis and was told she did not have any coronary disease. She has a history of chronic CHF and takes Lasix 40 mg daily as an outpatient. She states that over the past 3-4 months she has had chronic pain of the left side of her body including chest pain. She has been using OTC patches to treat her "heart pain" which she feels is due to an "infection of my heart." This morning a stroke alert was called after the patient was noted to have left sided weakness. CTA of head and neck were unremarkable. Tele-neurologist at [facility] [place] did not feel TPA was indicated but did recommend an MRI of the brain which is pending. Patient's neurological exam reportedly returned to normal. She is very tearful and complaining of left chest and abdominal pain. She denies palpitations, shortness of breath, lightheadedness, near syncope or syncope. No abnormal bleeding. She is fairly inactive at home. She lives with her son and only ambulates short distances. Her chest pain occurs at random and is not increased with activity. She remains in atrial fibrillation with uncontrolled ventricular response. Currently on diltiazem drip 2.5 mg/hour. She has been hypotensive at times. ROS: 10 point ROS completed and otherwise negative unless stated in HPI. Social history: . 2 sons. Lives with one of her son's in an apartment. No tobacco, alcohol or drug use. Family history: Mother and father both of cancer. Allergies Allergy/AdvReac Type Severity Reaction Status Date / Time codeine AdvReac Intermediate SEVERE GI Verified 11/30/18 13:39 SYMPTOMS Home Medications Home Medications Medication Instructions Recorded Confirmed Type benzonatate [Tessalon Perles] 100 mg PO BID PRN 11/30/18 11/30/18 History carvedilol 1 tab PO BID 11/30/18 11/30/18 History cephalexin 5 ml PO QID 11/30/18 11/30/18 History furosemide 20 mg PO DIRECTED PRN 11/30/18 11/30/18 History furosemide 40 mg PO QAM 11/30/18 11/30/18 History levothyroxine 1 tab PO QAM 11/30/18 11/30/18 History lisinopril 40 mg PO QAM 11/30/18 11/30/18 History metronidazole 500 mg PO DIRECTED 11/30/18 11/30/18 History minocycline 200 mg PO BID 11/30/18 11/30/18 History multivitamin [Multiple Vitamins] 1 tab PO QAM 11/30/18 11/30/18 History oxycodone-acetaminophen 1 tab PO UD PRN 11/30/18 11/30/18 History prednisone 5 mg PO QAM 11/30/18 11/30/18 History rivaroxaban [Xarelto] 20 mg PO QPM 11/30/18 11/30/18 History tinidazole 500 mg PO DIRECTED 11/30/18 11/30/18 History Patient History Medical History S/P tooth extraction Hyponatremia Chronic, continuous use of opioids Ambulatory dysfunction Multinodular goiter Hypothyroidism Atrial fibrillation with RVR (Acute) Weakness (Acute) Chronic fatigue syndrome (Chronic) Atrial fibrillation CHF (congestive heart failure) (Chronic) Chronic anticoagulation (Chronic) History of uterine fibroid Surgical History H/O breast augmentation Social History Communication Ability: Effective Beliefs That Will Affect Care: None Current Living Situation: Alone current occupational status: retired and disabled Other Information That Helps Us Care for You: No other: Disabled in her 50s. 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 Tearful and anxious. HEENT: Head is normal. PERRLA. EOMI. Sclerae anicteric. Ears, nose and throat unremarkable. Mucous membranes moist. Neck: Normal carotid upstrokes, no bruits. No appreciable JVD. Lungs: Clear to auscultation bilaterally without rales, rhonchi or wheezes. Cardiac: Irregularly irregular. Tachycardic. No appreciable murmur, gallop or rub. Abdomen: Soft and nontender. Bowel sounds normal. No mass or organomegaly. No abdominal bruit. Extremities/vascular: Well perfused. No peripheral edema. Radial, DP and PT pulses 2+ bilaterally Skin: Discoloration of face and lower extremities. Neurologic: Nonfocal Psychiatric: Affect appropriate. Alert and oriented. Results & Data Laboratory Results Laboratory Results - last 24 hr 11/30/18 11/30/18 11/30/18 11:52 11:52 19:54 WBC 7.88 RBC 4.23 Hgb 14.5 Hct 41.7 MCV 98.6 MCH 34.3 H MCHC 34.8 RDW Std Deviation 50.2 H RDW Coeff of [place] 14.1 Plt Count 218 MPV 11.4 H Immature Gran % (Auto) 0.1 Neut % (Auto) 77.6 Lymph % (Auto) 12.2 [place] % (Auto) 9.3 Eos % (Auto) 0.5 Baso % (Auto) 0.3 Immature Gran # (Auto) 0.01 Neut # (Auto) 6.12 Lymph # (Auto) 0.96 L [place] # (Auto) 0.73 H Eos # (Auto) 0.04 Baso # (Auto) 0.02 PT INR APTT PTT Ratio Sodium 135 L Potassium 4.1 Chloride 104 Carbon Dioxide 22 Anion Gap 9.0 BUN 37 H Creatinine 1.07 Est Cr Clr Drug Dosing Not Reportable Est GFR ( Amer) 60.5 Est GFR (Non-Af Amer) 52.2 BUN/Creatinine Ratio 34.4 H Glucose 92 Calcium 9.4 Magnesium Total Bilirubin 0.6 AST 30 ALT 29 Alkaline Phosphatase 161 H Troponin I < 0.015 < 0.015 Total Protein 8.0 Albumin 3.7 Globulin 4.3 H Albumin/Globulin Ratio 0.9 Lipase 142 Specimen Hemolysis Blood Type Antibody Screen 12/01/18 12/01/18 12/01/18 04:14 04:14 06:15 WBC 4.71 L 4.67 L RBC 3.53 L 3.86 L Hgb 11.9 L 13.1 Hct 35.1 L 38.5 MCV 99.4 99.7 MCH 33.7 33.9 MCHC 33.9 34.0 RDW Std Deviation 51.2 H 50.8 H RDW Coeff of [place] 14.2 14.1 Plt Count 179 192 MPV 11.5 H 11.6 H Immature Gran % (Auto) 0.0 Neut % (Auto) 64.6 Lymph % (Auto) 23.8 [place] % (Auto) 10.3 Eos % (Auto) 0.9 Baso % (Auto) 0.4 Immature Gran # (Auto) 0.00 Neut # (Auto) 3.02 Lymph # (Auto) 1.11 L [place] # (Auto) 0.48 Eos # (Auto) 0.04 Baso # (Auto) 0.02 PT INR APTT PTT Ratio Sodium 136 Potassium 4.1 Chloride 106 Carbon Dioxide 26 Anion Gap 4.0 BUN 36 H Creatinine 0.99 Est Cr Clr Drug Dosing 61.8 Est GFR ( Amer) 66.4 Est GFR (Non-Af Amer) 57.3 BUN/Creatinine Ratio 36.5 H Glucose 86 Calcium 8.5 Magnesium 2.5 H Total Bilirubin 0.5 AST 17 ALT 23 Alkaline Phosphatase 122 H Troponin I < 0.015 Total Protein 6.1 L D Albumin 2.9 L Globulin 3.2 Albumin/Globulin Ratio 0.9 Lipase Specimen Hemolysis Blood Type Antibody Screen 12/01/18 12/01/18 12/01/18 06:16 06:16 06:16 WBC RBC Hgb Hct MCV MCH MCHC RDW Std Deviation RDW Coeff of [place] Plt Count MPV Immature Gran % (Auto) Neut % (Auto) Lymph % (Auto) [place] % (Auto) Eos % (Auto) Baso % (Auto) Immature Gran # (Auto) Neut # (Auto) Lymph # (Auto) [place] # (Auto) Eos # (Auto) Baso # (Auto) PT 11.4 INR 1.1 APTT 26.7 PTT Ratio 1.0 Sodium 135 L Cancelled Potassium 4.1 Cancelled Chloride 105 Cancelled Carbon Dioxide 24 Cancelled Anion Gap 6.0 Cancelled BUN 35 H Cancelled Creatinine 1.03 Cancelled Est Cr Clr Drug Dosing 59.4 Cancelled Est GFR ( Amer) 63.3 Cancelled Est GFR (Non-Af Amer) 54.6 Cancelled BUN/Creatinine Ratio 33.5 H Cancelled Glucose 89 Cancelled Calcium 8.9 Cancelled Magnesium 2.5 H Cancelled Total Bilirubin 0.6 Cancelled AST 22 Cancelled ALT 26 Cancelled Alkaline Phosphatase 141 H Cancelled Troponin I < 0.015 Cancelled Total Protein 7.1 Cancelled Albumin 3.2 L Cancelled Globulin 3.9 Cancelled Albumin/Globulin Ratio 0.8 L Cancelled Lipase Specimen Hemolysis Blood Type Antibody Screen 12/01/18 06:16 WBC RBC Hgb Hct MCV MCH MCHC RDW Std Deviation RDW Coeff of [place] Plt Count MPV Immature Gran % (Auto) Neut % (Auto) Lymph % (Auto) [place] % (Auto) Eos % (Auto) Baso % (Auto) Immature Gran # (Auto) Neut # (Auto) Lymph # (Auto) [place] # (Auto) Eos # (Auto) Baso # (Auto) PT INR APTT PTT Ratio Sodium Potassium Chloride Carbon Dioxide Anion Gap BUN Creatinine Est Cr Clr Drug Dosing Est GFR ( Amer) Est GFR (Non-Af Amer) BUN/Creatinine Ratio Glucose Calcium Magnesium Total Bilirubin AST ALT Alkaline Phosphatase Troponin I Total Protein Albumin Globulin Albumin/Globulin Ratio Lipase Specimen Hemolysis Blood Type B Positive Antibody Screen NEGATIVE ECG Additional Comments: EKGs reviewed-- afib with RVR Telemetry reviewed-- afib, HR 80-90s overnight; today 100-140s.
[2018-12-01] MEDS: OXYCODONE/ACETAMINOPHEN 5mg/325mg TAB PO PRN ×3 (12:11→19:50)
[2018-12-01] MEDS: dilTIAZem HCl 125 MG in DEXTROSE 5% 100 ML IV SCH ×2 (13:20→19:49)
[2018-12-01] MEDS: LEVOTHYROXINE SODIUM 112 MCG TABLET PO SCH (16:00)
[2018-12-01] MEDS ORDERED: RIVAROXABAN 20 MG TAB PO SCH (17:00)
[2018-12-01] MEDS: POTASSIUM CHLORIDE 10 MEQ TABCR PO SCH (17:35)
[2018-12-01] MEDS ORDERED: CARVEDILOL 6.25 MG TAB PO SCH (21:00)
[2018-12-01] MEDS: CARVEDILOL 12.5 MG TAB PO SCH (21:12)
--- NOTE | 2018-12-01 21:20 | Hospitalist Progress Note ---
Date of Service December 01, 2018 Assessment & Plan (1) TIA (transient ischemic attack): This AM's episode of left-sided weakness may in fact been a TIA. CTA head/neck without significant stenosis. No source of thrombus seen on echo. She takes xarelto chronically for a.fib. Will need lipids checked while here. MRI brain ordered but patient refusing to take stating she could not lay flat for such. Her neuro exam was normal during the visit today. Appreciate Dr. Villasenor's consultation. Present on Admission?: No (2) Atrial fibrillation with RVR: History of PAF. Despite her coreg at home dosing and diltiazem drip her rates have been uncontrolled throughout the day. Will increase coreg to 12.5mg BID. Now that echo is back showing depressed EF the diltiazem is relatively contraindicated but will defer final decision on its use to cardiology. Could consider digoxin for rate control if absolutely necessary. I reviewed office notes and at times her HRs were documented >100 -- I question if she is in a.fib most times. Cardioversion in the past has not been successful at maintaining NSR. Antiarrhythmic? Check TSH in am. Present on Admission?: Yes (3) Chronic systolic CHF (congestive heart failure): She has had EF <30% in [place], then in 2018 she had recovery in EF to >50%. Now 25-30%. Tachyarrhythmia induced from a.fib? Outpatient records indicate she has had cardiac cath but I cannot find an actual cath report. Continue BB and titrate. Control the a.fib. Fortunately from volume standpoint she is compensated; if anything she is slightly dry given the high BUN. Lasix currently on hold. Appreciate cardiology consultation. Present on Admission?: Yes (4) Left upper quadrant pain: Present since 08/2018. I reviewed all scanned outpatient records from [facility]. I do not see any dedicated imaging for this complaint. Consider CT abd/pelvis. Consider imaging of spine if this is radicular. Treat pain for now with oxycodone prn. Consider heat. Present on Admission?: Yes (5) Chest pain: Troponins negative. Most of her pain is left sided and in the upper abdomen. Doubt ischemic. Has had multiple chest CTs in the past year-- none have shown PE, and she takes xarelto. Present on Admission?: No (6) Hypothyroidism: Check TSH in am. Cont synthroid. Present on Admission?: Yes (7) Ambulatory dysfunction: Ongoing issue for some time. PT,OT evals while here. (8) Chronic fatigue syndrome: Related to chronic parasitic infection? fibromyalgia? CHF? other? (9) Parasite infection: chronic, diagnosed in [place] years ago. takes chronic doxycycline BID. takes flagyl with tinidazole. will need to check with her on the doses of above 2 meds. (10) S/P tooth extraction: recent. blood cx's pending to r/o bacteremia. echo w/o endocarditis. (11) Chronic bronchitis: in 2018 had numerous issues related to this. I cannot see she ever had PFTs. she is not on controller agents. lungs are clear today. follow. (12) DVT prophylaxis: franky again I offered another hospitalist to assume her care in light of issues in 2018 during prior hospital stay at conclusion of visit today she seemed ok with me continuing to be involved total time spent between bedside rounds, reviewing 100+ pages of outpatient records, speaking w/ neuro and cardiology - 75min Subjective events of today- code purple/stroke alert called this am. apparently the patient had left lower chest wall/left flank pain that then led to an inability to move the left arm and left leg. the left-sided weakness lasted 20-30 minutes. she was rushed down for CT head and CTA head/neck. the critical care PA discussed her case with telestroke from [facility] --- TPA not advised. she was subsequently seen by neuro who felt she may have had a TIA. MRI brain was ordered but patient refused stating she couldn't lay flat due to pain. throughout the day she has had rapid a.fib with rates in the 100-130 range despite diltiazem drip. when I entered her room today for bedside rounds she stated she had remembered me from her 2018 hospital admission for flu A, rib fractures, and dehydration. during that stay she was very dissatisfied with her care and ultimately wrote several letters to our service excellence department complaining about her care. she reminded me today of those letters and again stated that we were "trying to kill her" during that hospitalization. I offered to secure her a different hospitalist to care for her but she shifted the conversation to her son and said "Oh my son really likes you. You found his infection." (he had endocarditis) She ultimately seemed ok with us continuing the physician-patient relationship. her main complaint throughout the visit was that of pain in her left lower chest/left upper quadrant/left flank area. it has been present since August 2018. the pain comes/goes and comes on without warning. it can happen at rest. today's pain was associated with lumbar back pain. she is unaware of any dedicated imaging of this region since the pain began. Constitutional: no fever Respiratory: no dyspnea Cardiovascular: + palpitations; no chest pain, no chest pain at rest, no chest pain with activity, no dyspnea, no orthopnea and no paroxysmal nocturnal dyspnea Gastrointestinal: as per Subjective / HPI and + abdominal pain; no nausea and no vomiting Physical Exam Vital Signs (Past 24 Hours): Last Vital Signs Temp 36.9 C 12/01/18 19:26 Pulse 96 H 12/01/18 19:26 Resp 19 12/01/18 19:26 BP 101/69 12/01/18 19:26 Pulse Ox 99 12/01/18 19:26 Constitutional: no acute distress severe hyperpigmentation of the face ENMT: external ear and nose normal, oropharynx normal Respiratory: normal respiratory effort, lungs clear to auscultation Cardiovascular: Rate/Rhythm: + tachycardic; + abnormal rhythm (irregular) Heart Sounds: normal S1 and normal S2; no murmur Vessels: posterior tibial pulses present and dorsalis pedis pulses present; no JVD Extremities: no edema Chest (Breasts): Additional Comments: mild discomfort with palpation of the left lower costal margin region Gastrointestinal (Abdomen): Inspection/Auscultation: abdomen normal to inspection and normal bowel sounds; abdomen not distended Percussion/Palpation: + abdomen tender (left upper quadrant); no guarding, abdomen not rigid and no hepatosplenomegaly Musculoskeletal: no tenderness to palpation over the t-spine or l-spine Skin: hyperpigmentation of face as well as shins of legs Neurologic: speech clear/fluent; strength 5/5 x 4 exts; no facial droop Psychiatric: Orientation: alert Insight: + poor insight Lymphatic: no cervical lymphadenopathy Results & Data Laboratory Results Laboratory Results - last 24 hr 12/01/18 12/01/18 12/01/18 04:14 04:14 06:15 WBC 4.71 L 4.67 L RBC 3.53 L 3.86 L Hgb 11.9 L 13.1 Hct 35.1 L 38.5 MCV 99.4 99.7 MCH 33.7 33.9 MCHC 33.9 34.0 RDW Std Deviation 51.2 H 50.8 H RDW Coeff of [place] 14.2 14.1 Plt Count 179 192 MPV 11.5 H 11.6 H Immature Gran % (Auto) 0.0 Neut % (Auto) 64.6 Lymph % (Auto) 23.8 [place] % (Auto) 10.3 Eos % (Auto) 0.9 Baso % (Auto) 0.4 Immature Gran # (Auto) 0.00 Neut # (Auto) 3.02 Lymph # (Auto) 1.11 L [place] # (Auto) 0.48 Eos # (Auto) 0.04 Baso # (Auto) 0.02 PT INR APTT PTT Ratio Sodium 136 Potassium 4.1 Chloride 106 Carbon Dioxide 26 Anion Gap 4.0 BUN 36 H Creatinine 0.99 Est Cr Clr Drug Dosing 61.8 Est GFR ( Amer) 66.4 Est GFR (Non-Af Amer) 57.3 BUN/Creatinine Ratio 36.5 H Glucose 86 Calcium 8.5 Magnesium 2.5 H Total Bilirubin 0.5 AST 17 ALT 23 Alkaline Phosphatase 122 H Troponin I < 0.015 Total Protein 6.1 L D Albumin 2.9 L Globulin 3.2 Albumin/Globulin Ratio 0.9 Blood Type Antibody Screen 12/01/18 12/01/18 12/01/18 06:16 06:16 06:16 WBC RBC Hgb Hct MCV MCH MCHC RDW Std Deviation RDW Coeff of [place] Plt Count MPV Immature Gran % (Auto) Neut % (Auto) Lymph % (Auto) [place] % (Auto) Eos % (Auto) Baso % (Auto) Immature Gran # (Auto) Neut # (Auto) Lymph # (Auto) [place] # (Auto) Eos # (Auto) Baso # (Auto) PT 11.4 INR 1.1 APTT 26.7 PTT Ratio 1.0 Sodium 135 L Cancelled Potassium 4.1 Cancelled Chloride 105 Cancelled Carbon Dioxide 24 Cancelled Anion Gap 6.0 Cancelled BUN 35 H Cancelled Creatinine 1.03 Cancelled Est Cr Clr Drug Dosing 59.4 Cancelled Est GFR ( Amer) 63.3 Cancelled Est GFR (Non-Af Amer) 54.6 Cancelled BUN/Creatinine Ratio 33.5 H Cancelled Glucose 89 Cancelled Calcium 8.9 Cancelled Magnesium 2.5 H Cancelled Total Bilirubin 0.6 Cancelled AST 22 Cancelled ALT 26 Cancelled Alkaline Phosphatase 141 H Cancelled Troponin I < 0.015 Cancelled Total Protein 7.1 Cancelled Albumin 3.2 L Cancelled Globulin 3.9 Cancelled Albumin/Globulin Ratio 0.8 L Cancelled Blood Type Antibody Screen 12/01/18 06:16 WBC RBC Hgb Hct MCV MCH MCHC RDW Std Deviation RDW Coeff of [place] Plt Count MPV Immature Gran % (Auto) Neut % (Auto) Lymph % (Auto) [place] % (Auto) Eos % (Auto) Baso % (Auto) Immature Gran # (Auto) Neut # (Auto) Lymph # (Auto) [place] # (Auto) Eos # (Auto) Baso # (Auto) PT INR APTT PTT Ratio Sodium Potassium Chloride Carbon Dioxide Anion Gap BUN Creatinine Est Cr Clr Drug Dosing Est GFR ( Amer) Est GFR (Non-Af Amer) BUN/Creatinine Ratio Glucose Calcium Magnesium Total Bilirubin AST ALT Alkaline Phosphatase Troponin I Total Protein Albumin Globulin Albumin/Globulin Ratio Blood Type B Positive Antibody Screen NEGATIVE (1) Chest pain Chest pain type: unspecified Qualified Code(s): R07.9 - Chest pain, unspecified (2) Hypothyroidism Hypothyroidism type: acquired Qualified Code(s): E03.9 - Hypothyroidism, unsp ecified (3) Chronic bronchitis Chronic bronchitis type: unspecified Qualified Code(s): J42 - Unspecified chronic bronchitis
[2018-12-01] MEDS ORDERED: ACETAMINOPHEN 1000 MG/100 ML IV IV PRN (21:24)
[2018-12-01] MEDS ORDERED: ACETAMINOPHEN 1,000 MG/100 ML VIAL IV PRN (21:45)
[2018-12-02] MEDS: dilTIAZem HCl 125 MG in DEXTROSE 5% 100 ML IV SCH (00:15)
[2018-12-02] MEDS: OXYCODONE/ACETAMINOPHEN 5mg/325mg TAB PO PRN ×2 (03:17→13:38)
[2018-12-02] MEDS ORDERED: OXYCODONE/ACETAMINOPHEN 5mg/325mg TAB PO STA (03:34)
[2018-12-02] MEDS ORDERED: LORazepam 0.5 MG/1 ML VIAL IV STA (03:37)
[2018-12-02] MEDS: LEVOTHYROXINE SODIUM 112 MCG TABLET PO SCH (06:18)
[2018-12-02 06:24] LABS: Hematocrit (blood only) 35.4 % (37-47); Hemoglobin 12.1 g/dL (12.0-16.0); Mean Corpuscular Hgb Conc 34.2 g/dL (32-36); Mean Platelet Volume 11.6 fL (7.4-10.4); Platelet Count 161 K/uL (130-400); RDW Standard Deviation 51.3 fL (36.4-46.3); Red Blood Count 3.54 M/uL (4.2-5.4); White Blood Count 4.38 K/uL (4.8-10.8)
[2018-12-02 06:57] LABS: BUN Creatinine Ratio 32.6 (10-20); Calcium 8.6 mg/dl (8.5-10.1); Creatinine Clr Calc Pharmacy 63.7 ml/min; Est GFR (Non-African American) 59.5; Potassium 4.2 mmol/L (3.5-5.1)
[2018-12-02] MEDS: CARVEDILOL 12.5 MG TAB PO SCH ×2 (07:34→19:34)
[2018-12-02] MEDS: predniSONE 5 MG TAB PO SCH (07:34)
[2018-12-02] MEDS: CEROVITE ADV FORMULA TAB PO SCH (07:34)
[2018-12-02] MEDS: POTASSIUM CHLORIDE 10 MEQ TABCR PO SCH (07:34)
[2018-12-02] MEDS: DOXYCYCLINE HYCLATE 100 MG CAP PO SCH ×2 (07:35→19:34)
[2018-12-02] MEDS: FUROSEMIDE 40 MG TAB PO SCH (10:27)
[2018-12-02] MEDS ORDERED: DIGOXIN 500 MCG/2 ML AMP IV ONE ×3 (10:29→23:00)
[2018-12-02] MEDS ORDERED: DIGOXIN 500 MCG in SYRINGE 8 ML IV ONE (11:00)
--- NOTE | 2018-12-02 11:10 | Cardiology Progress Note ---
Date of Service December 02, 2018 Assessment & Plan (1) Atrial fibrillation with RVR: Heart rate is still elevated and has required higher doses of diltiazem. Recommend digoxin load intravenously. Orders have been ordered. Continue beta- amy at current dose for now given issues with hypotension. Would hope to wean diltiazem off. Maintain heart rates less than 110 bpm and wean diltiazem as able. Tachycardia may be the etiology of her cardiomyopathy. Continue anticoagulation for stroke risk reduction. (2) Chronic systolic CHF (congestive heart failure): She reports shortness of breath. She may have some JVD but exam is difficult. Agree with resuming her home dose of diuretic therapy. She is net negative approximately 1 L yesterday. Would try to maintain approximately 1 L negative net fluid balance as renal function allows. Low-sodium diet. Daily weights. Strict I&Os. (3) Mitral regurgitation: This could be secondary to hypervolemia and also potentially from dilated LV versus primary valve issue. Would recommend follow-up in the future when heart rate is well controlled and hopefully with some improvement in her LV systolic function, also after diuresis as above. (4) Cardiomyopathy: Etiology may be secondary to tachycardia. Digoxin as above. Continue carvedilol. She is on lisinopril at home however this has been held. Consider Entresto rather than restarting lisinopril given CHF and reduced LV systolic function. If this is not an option financially, would resume lisinopril at a lower dose when blood pressure can tolerate. If LV systolic function does not improve over time, still further secondary workup would be recommended at that time, likely as an outpatient. (5) Pulmonary hypertension: Etiology uncertain. This can be re-evaluated after treatment plan as above as an outpatient. Disposition: Cardiology will continue to follow while Dr. Duong is away from the hospital. Plan of care discussed with Dr. Springer, of the primary hospitalist service. Subjective She appeared very comfortable laying in her hospital bed from the hallway. When we entered the room, she became histrionic. She said that she was short of breath that she needed her Lasix, which was ordered by the primary service but not yet given. Nursing staff was waiting for to arrive to the floor. When attempting to obtain a review of systems, she stated that she is unable to speak because of her shortness of breath. I asked if I could update her about her condition including her echo findings but she states that she is unable to here because she is full of fluid. She responded appropriately each time I spoke, but she continued to say that she could not hear due to fluid. She stated that she hates her body. Nicole Wing PA-C, accompanied me for today's visit. Although she would not answer review of systems other than that she was short of breath, she was updated that her heart is weak and her heart continues to be faster than usual and that we would give her a medicine called digoxin to help slow down her heart rate. She then stated that she was very appreciative that we stopped by to assist her in her care. Nursing staff notified me that diltiazem drip had to be titrated upward due to tachycardia with her atrial fibrillation. She is currently on 10 milligrams/hour of diltiazem intravenously. Review of systems: As above. Physical Exam Vital Signs (Past 24 Hours): Last Vital Signs Temp 36.4 C L 12/02/18 07:11 Pulse 117 H 12/02/18 09:41 Resp 20 12/02/18 07:11 BP 107/74 12/02/18 09:41 Pulse Ox 96 12/02/18 07:11 Intake & Output 11/30/18 12/01/18 12/02/18 12/03/18 06:59 06:59 06:59 06:59 Intake Total 823.333 / 626.219 5091.626 / 1212.62 6 Output Total 1350 / 1350 2150 / 2150 350 / 350 Balance -526.667 / -526.66 7 -937.374 / -937.37 4 -350 / -350 Weight 95.3 kg Physical Exam: Gen.: No acute distress. Alert and oriented. HEENT: Anicteric sclera. Neck: Thick neck but there does appear to be elevated JVD. Cardiac: Irregularly irregular. Normal S1-S2. No murmurs, rubs, or gallops. Pulmonary: Clear to auscultation bilaterally without wheezes, rales, or rhonchi. Abdomen: Soft, nontender, nondistended, with normoactive bowel sounds. No bruits noted. Extremities: No significant edema. No cyanosis. Results & Data Laboratory Results Laboratory Results - last 24 hr 12/02/18 12/02/18 12/02/18 05:51 05:51 07:27 WBC 4.38 L RBC 3.54 L Hgb 12.1 Hct 35.4 L MCV 100.0 MCH 34.2 H MCHC 34.2 RDW Std Deviation 51.3 H RDW Coeff of [place] 14.0 Plt Count 161 MPV 11.6 H Sodium 135 L Potassium 4.2 Chloride 106 Carbon Dioxide 23 Anion Gap 6.0 BUN 31 H Creatinine 0.96 Est Cr Clr Drug Dosing 63.7 Est GFR ( Amer) 69.0 Est GFR (Non-Af Amer) 59.5 BUN/Creatinine Ratio 32.6 H Glucose 94 POC Glucose 104 H Calcium 8.6 TSH 0.573 Diagnostic Findings Telemetry personally reviewed: Atrial fibrillation the. ECG personally reviewed: ECG 12/01/2018: AFib 96 bpm with PVC versus aberrantly conducted complexes. Echo 12/01/2018: Mild LV dilation with severely reduced systolic function. EF 25-30%. Global hypokinesis. Mild LVH. Moderately dilated RV with moderately reduced systolic function. Severe left atrial dilation. Mild right atrial dilation. Sclerotic aortic valve. Moderate to severe MR. RVSP 46. AFib with RVR. Medications Administered Current Inpatient Medications Carvedilol (Coreg) 12.5 mg PO BID [facility] Stop: 12/31/18 20:59 Last Admin: 12/02/18 07:34 Dose: 12.5 mg Documented by: Digoxin (Lanoxin) 250 mcg IV ONE ONE Stop: 12/02/18 17:01 Digoxin (Lanoxin) 250 mcg IV ONE ONE Stop: 12/02/18 23:01 Doxycycline Hyclate (Vibramycin) 200 mg PO BID [facility] Stop: 12/31/18 08:59 Last Admin: 12/02/18 07:35 Dose: 200 mg Documented by: Furosemide (Lasix) 40 mg PO QAM [facility] Stop: 01/01/19 09:59 Last Admin: 12/02/18 10:27 Dose: 40 mg Documented by: Hydroxyzine HCl (Vistaril) 25 mg PO HS PRN PRN Reason: Insomnia Stop: 12/31/18 21:24 Last Admin: 12/01/18 22:08 Dose: 25 mg Documented by: Diltiazem HCl 125 mg/ Dextrose 125 mls @ 5 mls/hr IV .Q24H [facility]; Protocol Stop: 12/30/18 11:59 Last Admin: 12/02/18 00:15 Dose: 5 mg/hr, 5 mls/hr Documented by: Acetaminophen (Ofirmev) 1,000 mg in 100 mls @ 400 mls/hr IV Q8H PRN; Protocol PRN Reason: Pain Stop: 12/31/18 21:44 Last Infusion: 12/01/18 22:10 Dose: Infused Documented by: Digoxin 500 mcg/ Syringe 10 mls @ 1 mls/min IV 1100 ONE Stop: 12/02/18 11:09 Digoxin 250 mcg/ Syringe 10 mls @ 2 mls/min IV 1730 ONE Stop: 12/02/18 17:34 Digoxin 250 mcg/ Syringe 10 mls @ 2 mls/min IV 2330 ONE Stop: 12/02/18 23:34 Ioversol (Optiray 320 125ml) 125 ml IV ONCE PRN PRN Reason: Interaction Checking Stop: 12/05/18 06:50 Last Admin: 12/01/18 06:51 Dose: 119 ml Documented by: Ketorolac Tromethamine (Toradol) 15 mg IV Q6H PRN PRN Reason: Pain Stop: 12/05/18 17:02 Last Admin: 12/01/18 17:35 Dose: 15 mg Documented by: Levothyroxine Sodium (Synthroid) 112 mcg PO DAILYBB [facility] Stop: 12/31/18 14:59 Last Admin: 12/02/18 06:18 Dose: 112 mcg Documented by: Multivitamins/Minerals (Multivitamin W/ Minerals Tab) 1 tab PO QAM [facility] Stop: 12/31/18 08:59 Last Admin: 12/02/18 07:34 Dose: 1 tab Documented by: Nitroglycerin (Nitrostat) 0.4 mg SL PRN PRN PRN Reason: Chest Pain Stop: 12/31/18 06:14 Last Admin: 12/01/18 06:18 Dose: 0.4 mg Documented by: Ondansetron HCl (Zofran) 4 mg IV Q4H PRN PRN Reason: Nausea And Vomiting Stop: 12/30/18 17:40 Oxycodone/Acetaminophen (Percocet 5mg/325mg) 1 tab PO Q4H PRN PRN Reason: Pain Stop: 12/15/18 08:24 Last Admin: 12/02/18 03:17 Dose: 1 tab Documented by: Potassium Chloride (Klor-Con M10) 10 meq PO DAILY [facility] Stop: 12/31/18 16:59 Last Admin: 12/02/18 07:34 Dose: 10 meq Documented by: Prednisone (Prednisone) 5 mg PO QAM [facility] Stop: 12/31/18 08:59 Last Admin: 12/02/18 07:34 Dose: 5 mg Documented by: Rivaroxaban (Xarelto) 20 mg PO DAILY@1700 [facility] Stop: 01/01/19 16:59
[2018-12-02] MEDS ORDERED: FUROSEMIDE 40 MG/4 ML VIAL IV ONE (14:18)
[2018-12-02] MEDS ORDERED: FUROSEMIDE 20 MG in SYRINGE 0 ML IV SCH (14:45)
[2018-12-02] MEDS ORDERED: Nursing to Pharmacy Communication ONE ×2 (15:05→15:17)
[2018-12-02] MEDS: RIVAROXABAN 20 MG TAB PO SCH (16:42)
[2018-12-02] MEDS ORDERED: DIGOXIN 250 MCG in SYRINGE 9 ML IV ONE ×2 (17:30→23:30)
--- NOTE | 2018-12-02 19:46 | Hospitalist Progress Note ---
Date of Service December 02, 2018 Assessment & Plan (1) TIA (transient ischemic attack): AM of 12/01/18. left-sided weakness. resolved quickly. TIA work-up negative. Patient refused MRI brain however. Neuro consult appreciated. Recommended that xarelto be continued and obtain MRI brain if patient allows. Present on Admission?: No (2) Atrial fibrillation with RVR: History of PAF. TSH wnl. Has had persistent a.fib since admission. Coreg has been titrated to 12.5mg BID. In light of systolic CHF/low EF agree with Dr. Shah to stop diltiazem and dig load in fransico. Cont xarelto. (3) Chronic systolic CHF (congestive heart failure): She has had EF <30% in [place], then in 2018 she had recovery in EF to >50%. Now 25-30%. Tachyarrhythmia induced from a.fib? Outpatient records indicate she has had cardiac cath but I cannot find an actual cath report. I confirmed with patient and her son that the cath was entirely normal; this was done sometime in the last 10 years. She may have element of acute/chronic CHF today. Lasix 40mg po given this AM. Elected to give additional 20mg IV this afternoon -- patient continued to c/o dyspnea/orthopnea/HARO. Continue BB. Control the a.fib. Unable to give EDDA at this time due to low BP. Present on Admission?: Yes (4) Left upper quadrant pain: Present since 08/2018. I reviewed all scanned outpatient records from [facility]. I do not see any dedicated imaging for this complaint. Consider CT abd/pelvis. Consider imaging of spine if this is radicular. Treat pain for now with oxycodone prn. (5) Chest pain: Troponins negative. Most of her pain is left sided and in the upper abdomen. Doubt ischemic. Has had multiple chest CTs in the past year-- none have shown PE, and she takes xarelto. Likely to obtain CT abd/pelvis this admission. (6) Hypothyroidism: TSH compensated. Cont synthroid. (7) Ambulatory dysfunction: Ongoing issue for some time. PT,OT evals while here. (8) Chronic fatigue syndrome: Related to chronic parasitic infection (if truly present)? fibromyalgia? CHF? mood disorder? other? (9) Parasite infection: chronic, diagnosed in [place] years ago. takes chronic doxycycline BID. takes flagyl with tinidazole on rotating basis on weekends only. (10) S/P tooth extraction: recent. blood cx's pending to r/o bacteremia but thus far negative. echo w/o endocarditis. no indication for abx at this time. (11) Chronic bronchitis: in 2018 had numerous issues related to this. I cannot see she ever had PFTs. she is not on controller agents. follow. (12) DVT prophylaxis: franky son updated at bedside care d/w Dr. Shah today Subjective tele with eileen.fib, rates 100-120 overnight, with some rates 90s patient c/o dyspnea and "fluid in my lungs" during my rounds I asked her to clarify her flagyl and tinidazole - she takes these on rotating basis on weekends only she doesn't have as much pain today in the LUQ/LLQ of the abdomen son was at bedside - questions answered no recurrent weakness of left arm or leg Constitutional: no fever Respiratory: + cough and + dyspnea Cardiovascular: no chest pain Gastrointestinal: no abdominal pain Physical Exam Vital Signs (Past 24 Hours): Last Vital Signs Temp 36.6 C 12/02/18 19:25 Pulse 103 H 12/02/18 19:25 Resp 18 12/02/18 19:25 BP 109/80 12/02/18 19:25 Pulse Ox 99 12/02/18 19:25 Constitutional: no acute distress ENMT: external ear and nose normal, oropharynx normal Respiratory: no respiratory distress Auscultation: + rales (b/l bases) and + wheezes (hint of end-expiratory) Cardiovascular: Rate/Rhythm: + tachycardic; + abnormal rhythm (irregular) Heart Sounds: normal S1 and normal S2; no murmur Vessels: posterior tibial pulses present and dorsalis pedis pulses present; no JVD Extremities: no edema Gastrointestinal (Abdomen): Inspection/Auscultation: abdomen normal to inspection and normal bowel sounds; abdomen not distended Percussion/Palpation: abdomen soft; abdomen nontender, no guarding, abdomen not rigid and no hepatosplenomegaly Psychiatric: Orientation: alert and oriented x 3 Lymphatic: no cervical lymphadenopathy Results & Data Laboratory Results Laboratory Results - last 24 hr 12/02/18 12/02/18 12/02/18 05:51 05:51 05:51 WBC 4.38 L RBC 3.54 L Hgb 12.1 Hct 35.4 L MCV 100.0 MCH 34.2 H MCHC 34.2 RDW Std Deviation 51.3 H RDW Coeff of [place] 14.0 Plt Count 161 MPV 11.6 H Sodium 135 L Potassium 4.2 Chloride 106 Carbon Dioxide 23 Anion Gap 6.0 BUN 31 H Creatinine 0.96 Est Cr Clr Drug Dosing 63.7 Est GFR ( Amer) 69.0 Est GFR (Non-Af Amer) 59.5 BUN/Creatinine Ratio 32.6 H Glucose 94 POC Glucose Calcium 8.6 NT-Pro-B Natriuret Pep 3934 H TSH 0.573 12/02/18 07:27 WBC RBC Hgb Hct MCV MCH MCHC RDW Std Deviation RDW Coeff of [place] Plt Count MPV Sodium Potassium Chloride Carbon Dioxide Anion Gap BUN Creatinine Est Cr Clr Drug Dosing Est GFR ( Amer) Est GFR (Non-Af Amer) BUN/Creatinine Ratio Glucose POC Glucose 104 H Calcium NT-Pro-B Natriuret Pep TSH (1) Hypothyroidism Hypothyroidism type: acquired Qualified Code(s): E03.9 - Hypothyroidism, unspecified (2) Chest pain Chest pain type: unspecified Qualified Code(s): R07.9 - Chest pain, unspecified (3) Chronic bronchitis Chronic bronchitis type: unspecified Qualified Code(s): J42 - Unspecified chronic bronchitis
[2018-12-03] MEDS: OXYCODONE/ACETAMINOPHEN 5mg/325mg TAB PO PRN ×2 (01:53→07:30)
[2018-12-03] MEDS: KETOROLAC TROMETHAMINE 15 MG/ML VIAL IV PRN ×2 (01:53→08:13)
[2018-12-03] MEDS: LEVOTHYROXINE SODIUM 112 MCG TABLET PO SCH (06:13)
[2018-12-03] MEDS: CEROVITE ADV FORMULA TAB PO SCH (07:30)
[2018-12-03] MEDS: DOXYCYCLINE HYCLATE 100 MG CAP PO SCH ×2 (07:30→20:18)
[2018-12-03] MEDS: predniSONE 5 MG TAB PO SCH (07:30)
[2018-12-03] MEDS: POTASSIUM CHLORIDE 10 MEQ TABCR PO SCH (07:31)
[2018-12-03] MEDS: FUROSEMIDE 40 MG TAB PO SCH (07:31)
[2018-12-03] MEDS: CARVEDILOL 12.5 MG TAB PO SCH ×2 (07:31→20:18)
[2018-12-03 07:32] LABS: Hematocrit (blood only) 36.1 % (37-47); Hemoglobin 12.5 g/dL (12.0-16.0); Mean Corpuscular Hgb Conc 34.6 g/dL (32-36); Mean Corpuscular Volume 98.9 fL (80-100); Mean Platelet Volume 11.2 fL (7.4-10.4); Platelet Count 174 K/uL (130-400); RDW Coefficient of Variation 13.9 % (11.5-14.5); Red Blood Count 3.65 M/uL (4.2-5.4); White Blood Count 4.44 K/uL (4.8-10.8)
[2018-12-03] MEDS: NON-FORMULARY PATIENT'S OWN MED TOP SCH (07:32)
[2018-12-03 08:03] LABS: BUN Creatinine Ratio 31.7 (10-20); Calcium 9.2 mg/dl (8.5-10.1); Creatinine Clr Calc Pharmacy 52.3 ml/min; Est GFR (African American) 54.3; Est GFR (Non-African American) 46.8; Magnesium 2.4 mg/dl (1.8-2.4)
--- NOTE | 2018-12-03 09:21 | Cardiology Progress Note ---
Date of Service December 03, 2018 Assessment & Plan (1) Atrial fibrillation with RVR: Heart rate is adequately controlled after addition of intravenous digoxin. We will start digoxin 0.125 mg this afternoon. Continue carvedilol at current dose. If blood pressure and heart rate can tolerate in the future, would recommend further titration of carvedilol given reduced LV systolic function. Recommend digoxin level next week. Keep digoxin level less than 1. Continue anticoagulation for stroke risk reduction. (2) Chronic systolic CHF (congestive heart failure): She diuresed nicely with home dose of diuretic and also 1 dose of intravenous Lasix. Continue oral Lasix. Breathing has improved. She appears euvolemic on exam. Low-sodium diet. Daily weights. Strict I&Os. (3) Mitral regurgitation: This could be secondary to hypervolemia and also potentially from dilated LV versus primary valve issue. Would recommend follow-up in the future when heart rate is well controlled and hopefully with some improvement in her LV systolic function, also after diuresis as above. (4) Cardiomyopathy: Etiology may be secondary to tachycardia. Continue rate control of her atrial fibrillation with digoxin and carvedilol. Recommend starting low-dose Entresto if her blood pressure remained stabilized. If she is unable to afford Entresto, can resume lisinopril, but would start at a lower dose and titrate up as blood pressure tolerates. Repeat echo as an outpatient. This can be arranged by Dr. Duong. If LV systolic function does not improve over time, sti ll further secondary workup would be recommended at that time, likely as an outpatient. (5) Chest pain: Chest pain is atypical and appears to be musculoskeletal. It is not consistent with ischemic heart disease. No further cardiology evaluation for her chest pain at this time. Chest pain evaluation deferred to Dr. Varghese of the primary hospitalist service. (6) Pulmonary hypertension: Etiology uncertain. This can be re-evaluated after treatment plan as above as an outpatient. Disposition: I will be away for the hospital for the next [address] Duong will resume her cardiology care on Thursday when he returns to the hospital, if she remains hospitalized. Dr. Li be available for questions or concerns throughout the weekend. Plan of care discussed with Dr. Varghese, of the primary hospitalist service. He will investigate the chest discomfort. Subjective Her breathing has improved significantly. She denies shortness of breath. She did however state that she has "heart pain." She has pain on the left side of her chest and throughout her left side of her abdomen. It is responding to Percocet. It is extremely tender to the touch. She denies edema or bleeding. She feels much better overall today compared to yesterday. She was very happy that she received oral Lasix and also intravenous Lasix yesterday. Diltiazem drip has been discontinued. Her heart rate has improved with digoxin and beta-amy. Review of systems: As above. Physical Exam Vital Signs (Past 24 Hours): Last Vital Signs Temp 37.1 C 12/03/18 07:46 Pulse 89 12/03/18 07:46 Resp 26 H 12/03/18 07:46 BP 119/74 12/03/18 07:46 Pulse Ox 98 12/03/18 07:46 Intake & Output 12/01/18 12/02/18 12/03/18 12/04/18 06:59 06:59 06:59 06:59 Intake Total 823.333 / 652.134 9130.626 / 1212.62 6 1570.167 / 1570.16 7 Output Total 1350 / 1350 2150 / 2150 2500 / 2500 Balance -526.667 / -526.66 7 -937.374 / -937.37 4 -929.833 / -929.83 3 Weight 95.3 kg 95.4 kg Physical Exam: Gen.: No acute distress. Alert and oriented. HEENT: Anicteric sclera. Neck: No JVD. Cardiac: Irregularly irregular but rate controlled. Normal S1-S2. No murmurs, rubs, or gallops. Pulmonary: Clear to auscultation bilaterally without wheezes, rales, or rhonchi. Abdomen: Soft, nontender, nondistended, with normoactive bowel sounds. No bruits noted. Extremities: No significant edema. No cyanosis. Chest: Very tender to even light touch along the left side of her chest. No rash. This reproduces the chest pain mentioned above. Results & Data Laboratory Results Laboratory Results - last 24 hr 12/02/18 12/03/18 12/03/18 05:51 07:17 07:17 WBC 4.44 L RBC 3.65 L Hgb 12.5 Hct 36.1 L MCV 98.9 MCH 34.2 H MCHC 34.6 RDW Std Deviation 50.0 H RDW Coeff of [place] 13.9 Plt Count 174 MPV 11.2 H Sodium 139 Potassium 4.0 Chloride 107 Carbon Dioxide 24 Anion Gap 8.0 BUN 37 H Creatinine 1.17 Est Cr Clr Drug Dosing 52.3 Est GFR ( Amer) 54.3 Est GFR (Non-Af Amer) 46.8 BUN/Creatinine Ratio 31.7 H Glucose 82 Calcium 9.2 Magnesium 2.4 NT-Pro-B Natriuret Pep 3934 H Folate 12/03/18 07:17 WBC RBC Hgb Hct MCV MCH MCHC RDW Std Deviation RDW Coeff of [place] Plt Count MPV Sodium Potassium Chloride Carbon Dioxide Anion Gap BUN Creatinine Est Cr Clr Drug Dosing Est GFR ( Amer) Est GFR (Non-Af Amer) BUN/Creatinine Ratio Glucose Calcium Magnesium NT-Pro-B Natriuret Pep Folate 20.04 Diagnostic Findings Telemetry personally reviewed: Atrial fibrillation. Heart rate is now adequately controlled. She had a 6 beat run of wide-complex tachycardia, VT versus aberrant conduction. ECG personally reviewed: ECG 12/03/2018: A. fib at 81 bpm with PVC versus aberrantly conducted complexes. Nonspecific ST/T wave abnormality. Medications Administered Current Inpatient Medications Carvedilol (Coreg) 12.5 mg PO BID [facility] Stop: 12/31/18 20:59 Last Admin: 12/03/18 07:31 Dose: 12.5 mg Documented by: Doxycycline Hyclate (Vibramycin) 200 mg PO BID [facility] Stop: 12/31/18 08:59 Last Admin: 12/03/18 07:30 Dose: 200 mg Documented by: Furosemide (Lasix) 40 mg PO QAM [facility] Stop: 01/01/19 09:59 Last Admin: 12/03/18 07:31 Dose: 40 mg Documented by: Hydroxyzine HCl (Vistaril) 25 mg PO HS PRN PRN Reason: Insomnia Stop: 12/31/18 21:24 Last Admin: 12/01/18 22:08 Dose: 25 mg Documented by: Diltiazem HCl 125 mg/ Dextrose 125 mls @ 0 mls/hr IV .Q0M [facility]; Protocol Stop: 12/30/18 11:59 Last Titration: 12/02/18 15:17 Dose: Infused Documented by: Acetaminophen (Ofirmev) 1,000 mg in 100 mls @ 400 mls/hr IV Q8H PRN; Protocol PRN Reason: Pain Stop: 12/31/18 21:44 Last Infusion: 12/01/18 22:10 Dose: Infused Documented by: Ioversol (Optiray 320 125ml) 125 ml IV ONCE PRN PRN Reason: Interaction Checking Stop: 12/05/18 06:50 Last Admin: 12/01/18 06:51 Dose: 119 ml Documented by: Ketorolac Tromethamine (Toradol) 15 mg IV Q6H PRN PRN Reason: Pain Stop: 12/05/18 17:02 Last Admin: 12/03/18 08:13 Dose: 15 mg Documented by: Levothyroxine Sodium (Synthroid) 112 mcg PO DAILYBB [facility] Stop: 12/31/18 14:59 Last Admin: 12/03/18 06:13 Dose: 112 mcg Documented by: Miscellaneous (Remove Patch) 4 ea N/A DAILY@1700 [facility] Stop: 01/02/19 16:59 Multivitamins/Minerals (Multivitamin W/ Minerals Tab) 1 tab PO QAM JENNY Stop: 12/31/18 08:59 Last Admin: 12/03/18 07:30 Dose: 1 tab Documented by: Nitroglycerin (Nitrostat) 0.4 mg SL PRN PRN PRN Reason: Chest Pain Stop: 12/31/18 06:14 Last Admin: 12/01/18 06:18 Dose: 0.4 mg Documented by: Non-Formulary Medication (Non-Formulary Patient's Own Med) 4 ea TOP DAILY JENNY Stop: 01/02/19 08:59 Last Admin: 12/03/18 07:32 Dose: 4 mg Documented by: Ondansetron HCl (Zofran) 4 mg IV Q4H PRN PRN Reason: Nausea And Vomiting Stop: 12/30/18 17:40 Oxycodone/Acetaminophen (Percocet 5mg/325mg) 1 tab PO Q4H PRN PRN Reason: Pain Stop: 12/15/18 08:24 Last Admin: 12/03/18 07:30 Dose: 1 tab Documented by: Potassium Chloride (Klor-Con M10) 10 meq PO DAILY JENNY Stop: 12/31/18 16:59 Last Admin: 12/03/18 07:31 Dose: 10 meq Documented by: Prednisone (Prednisone) 5 mg PO QAM [facility] Stop: 12/31/18 08:59 Last Admin: 12/03/18 07:30 Dose: 5 mg Documented by: Rivaroxaban (Xarelto) 20 mg PO DAILY@1700 [facility] Stop: 01/01/19 16:59 Last Admin: 12/02/18 16:42 Dose: 20 mg Documented by: (1) Chest pain Chest pain type: unspecified Qualified Code(s): R07.9 - Chest pain, unspecified
[2018-12-03] MEDS: MoRPHine SULFATE 2 MG/ML CARP IV PRN (14:56)
[2018-12-03] MEDS ORDERED: IOVERSOL 100ml IV PRN (17:42)
--- NOTE | 2018-12-03 17:49 | CT Scan Report ---
CT thoracic spine wo con CT DOSE: 1980.33 mGy.cm HISTORY: Pain. Neuropathy. t-spine pain, ? radicular pain on left; eval DJD TECHNIQUE: Multiaxial CT images of the thoracic spine were performed and reformatted in the sagittal and coronal plane without the use of contrast. A dose lowering technique was utilized adhering to th e principles of ALARA. COMPARISON: None. FINDINGS: No fractures. No subluxation. Paraspinal soft tissues are unremarkable. Moderate degenerat placido disc change throughout. No evidence for an acute compression deformity. Small bilateral pleural effusions. IMPRESSION: 1. No acute bony abnormality. 2. Moderate degenerative disc change at the entire thoracic region. 3. Small bilateral pleural effusions. The above report was generated using voice recognition software. It may contain grammatical, syntax or spelling errors. Electronically signed by: Ministerio Bowen M.D. 12/03/2018 5:48 PM
--- NOTE | 2018-12-03 17:52 | CT Scan Report ---
CT abd pelvis oral and IV con CT DOSE: HISTORY: Pain left-sided abd pain x 3 months TECHNIQUE: Multiaxial CT images of the abdomen and pelvis were performed following the use of intrave nous and oral contrast. A dose lowering technique was utilized adhering to the principles of ALARA. COMPARISON STUDY: 11/26/2017 FINDINGS: Small bilateral pleural effusions. Mild bibasilar atelectatic change. Liver spleen and panc reas enhance uniformly. Stable hyperplastic change of the adrenal glands. Kidneys enhance uniformly. Nonobstructive bowel pattern. Bladder is midline. No evidence for mass collection or obstructive ralph ge. IMPRESSION: 1. No acute process of the abdomen or pelvis. 2. Small bilateral pleural effusions. The above report was generated using voice recognition software. It may contain grammatical, syntax or spelling errors. Electronically signed by: Ministerio Bowen M.D. 12/03/2018 5:50 PM
[2018-12-03] MEDS: RIVAROXABAN 20 MG TAB PO SCH (18:03)
[2018-12-03] MEDS: DIGOXIN 0.125 MG TAB PO SCH (18:03)
--- NOTE | 2018-12-03 21:00 | Hospitalist Progress Note ---
Date of Service December 03, 2018 Assessment & Plan (1) TIA (transient ischemic attack): AM of 12/01/18. left-sided weakness. resolved quickly. TIA work-up negative. Patient refused MRI brain however. Neuro consult appreciated. Cont xarelto in light of a.fib. (2) Left upper quadrant pain: Present since 08/2018. I reviewed all scanned outpatient records from [facility]. I do not see any dedicated imaging for this complaint. Will obtain CT abd/pelvis w/ IV/PO contrast in addition to a thoracic spine CT (r/o a spine process causing radicular symptoms). Nothing in the left breast on exam today. Treat pain for now with oxycodone prn. (3) Atrial fibrillation with RVR: IMPROVED s/p dig loading and increase in coreg. Cont dig and BB. Cont xarelto. Appreciate cardiology assistance. (4) Chronic systolic CHF (congestive heart failure): She has had EF <30% in [place], then in 2018 she had recovery in EF to >50%. Now 25-30%. Tachyarrhythmia induced from a.fib? Outpatient records indicate she has had cardiac cath but I cannot find an actual cath report. I confirmed with patient and her son that the cath was entirely normal; this was done sometime in the last 10 years. She may had an element of acute/chronic CHF this admission -- now euvolemic. Continue BB. Continue lasix. Control the a.fib. Unable to give EDDA at this time due to low BP. (5) Chest pain: Troponins negative. Most of her pain is left sided and in the upper abdomen. Doubt ischemic. Has had multiple chest CTs in the past year-- none have shown PE, and she takes xarelto. Obtain CT abd/pelvis. Obtain thoracic spine CT. Muscle?? (6) Hypothyroidism: TSH compensated. Cont synthroid. (7) Ambulatory dysfunction: Ongoing issue for some time. PT,OT evals while here but she declined them. (8) Chronic fatigue syndrome: Related to chronic parasitic infection (if truly present)? fibromyalgia? CHF? mood disorder? other? (9) Parasite infection: chronic, diagnosed in [place] years ago. takes chronic doxycycline BID. takes flagyl with tinidazole on rotating basis on weekends only. (10) S/P tooth extraction: recent. blood cx's pending to r/o bacteremia but thus far negative. echo w/o endocarditis. no indication for abx at this time. (11) Chronic bronchitis: in 2018 had numerous issues related to this. I cannot see she ever had PFTs. she is not on controller agents. No issues this admission. (12) DVT prophylaxis: xarelto care d/w Dr. Shah today home tomorrow?? Subjective upon entering the room she stated "oh my chest...my abdomen...it's like there is a fist in there [her abdomen]" "my back- it goes to my back and shoulder" "please give me pain medication" pain is coming/going has had the pain for 3 months - all left-sided no recurrent neuro symptoms no substernal chest pain tele with rate-controlled a.fib overnight Constitutional: no fever Cardiovascular: as per Subjective / HPI Gastrointestinal: + abdominal pain; no nausea and no vomiting Physical Exam Vital Signs (Past 24 Hours): Last Vital Signs Temp 36.5 C 12/03/18 19:28 Pulse 99 H 12/03/18 19:28 Resp 23 12/03/18 19:28 BP 102/75 12/03/18 19:28 Pulse Ox 99 12/03/18 19:28 Constitutional: + acute distress (due to back/left breast pain/left abdominal pain) ENMT: external ear and nose normal, oropharynx normal Respiratory: normal respiratory effort, lungs clear to auscultation no respiratory distress Cardiovascular: Rate/Rhythm: regular rate and + irregularly irregular Heart Sounds: normal S1 and normal S2; no murmur Vessels: posterior tibial pulses present and dorsalis pedis pulses present; no JVD Extremities: no edema Chest (Breasts): Additional Comments: chaperoned by Betzaida Pepe RN - no masses or abnormalities in left breast or left axillae Gastrointestinal (Abdomen): Inspection/Auscultation: abdomen normal to inspection and normal bowel sounds; abdomen not distended Percussion/Palpation: + abdomen tender (LUQ/LLQ) and abdomen soft; no guarding, abdomen not rigid and no hepatosplenomegaly Psychiatric: Orientation: alert and oriented x 3 Results & Data Laboratory Results Laboratory Results - last 24 hr 12/03/18 12/03/18 12/03/18 07:17 07:17 07:17 WBC 4.44 L RBC 3.65 L Hgb 12.5 Hct 36.1 L MCV 98.9 MCH 34.2 H MCHC 34.6 RDW Std Deviation 50.0 H RDW Coeff of [place] 13.9 Plt Count 174 MPV 11.2 H Sodium 139 Potassium 4.0 Chloride 107 Carbon Dioxide 24 Anion Gap 8.0 BUN 37 H Creatinine 1.17 Est Cr Clr Drug Dosing 52.3 Est GFR ( Amer) 54.3 Est GFR (Non-Af Amer) 46.8 BUN/Creatinine Ratio 31.7 H Glucose 82 Calcium 9.2 Magnesium 2.4 Folate 20.04 (1) Hypothyroidism Hypothyroidism type: acquired Qualified Code(s): E03.9 - Hypothyroidism, unspecified (2) Chest pain Chest pain type: unspecified Qualified Code(s): R07.9 - Chest pain, unspecified (3) Chronic bronchitis Chronic bronchitis type: unspecified Qualified Code(s): J42 - Unspecified chronic bronchitis
[2018-12-04] MEDS: KETOROLAC TROMETHAMINE 15 MG/ML VIAL IV PRN ×3 (00:56→21:27)
[2018-12-04] MEDS: OXYCODONE/ACETAMINOPHEN 5mg/325mg TAB PO PRN ×3 (00:56→21:28)
[2018-12-04] MEDS: LEVOTHYROXINE SODIUM 112 MCG TABLET PO SCH (06:03)
[2018-12-04] MEDS: NON-FORMULARY PATIENT'S OWN MED TOP SCH (07:33)
[2018-12-04] MEDS: predniSONE 5 MG TAB PO SCH (07:34)
[2018-12-04] MEDS: CEROVITE ADV FORMULA TAB PO SCH (07:34)
[2018-12-04] MEDS: DOXYCYCLINE HYCLATE 100 MG CAP PO SCH ×2 (07:35→21:29)
[2018-12-04] MEDS: CARVEDILOL 12.5 MG TAB PO SCH (07:35)
[2018-12-04] MEDS: FUROSEMIDE 40 MG TAB PO SCH (07:35)
[2018-12-04] MEDS: POTASSIUM CHLORIDE 10 MEQ TABCR PO SCH (07:35)
[2018-12-04 07:40] LABS: BUN Creatinine Ratio 32.2 (10-20); Calcium 9.1 mg/dl (8.5-10.1); Est GFR (African American) 54.9; Est GFR (Non-African American) 47.3; Potassium 4.3 mmol/L (3.5-5.1)
[2018-12-04] MEDS: MoRPHine SULFATE 2 MG/ML CARP IV PRN (08:39)
[2018-12-04] MEDS: RIVAROXABAN 20 MG TAB PO SCH (17:07)
[2018-12-04] MEDS: DIGOXIN 0.125 MG TAB PO SCH (17:07)
[2018-12-04] MEDS ORDERED: METOPROLOL TARTRATE 50 MG TAB PO SCH (21:00)
--- NOTE | 2018-12-04 21:55 | Hospitalist Progress Note ---
Date of Service December 04, 2018 Assessment & Plan (1) Atrial fibrillation with RVR: Improving with digoxin and BB titration. However, rates w/ activity are less than optimal. Spoke with Dr. Li -- we will change coreg to metoprolol. Try metoprolol tartrate 50mg x 1 at HS tonight, then titrate as needed tomorrow AM. Cont xarelto. Appreciate cardiology assistance. (2) TIA (transient ischemic attack): AM of 12/01/18. left-sided weakness with rapid resolution. TIA work-up negative. Patient refused MRI brain. Neuro consult appreciated. Cont xarelto in light of a.fib. (3) Left upper quadrant pain: Present since 08/2018. CT abd/pelvis w/ IV/PO contrast in addition to a thoracic spine CT did not reveal a specific etiology. Has had multiple CTs of the chest in the last year w/o specific etiology either. Cause? Suspect musculoskeletal etiology. K-pad heat. Recommended mammogram since pain is often over the left breast and also a colonoscopy since pain is often LUQ/LLQ. oxycodone prn. (4) Chronic systolic CHF (congestive heart failure): Compensated today. Cont BB. Cont lasix. BP too low for EDDA at this time. Echo this admission with EF 25-30%. Tachyarrhythmia induced from a.fib? Outpatient records indicate she has had cardiac cath but I cannot find an actual cath report. I confirmed with patient and her son that the cath was entirely normal; this was done sometime in the last 10 years. She may had an element of acute/chronic CHF this admission -- now euvolemic. (5) Chest pain: Troponins negative. Most of her pain is left sided and in the upper abdomen. See discussion above in "left upper quadrant pain." Doubt ischemic. Has had multiple chest CTs in the past year-- none have shown PE, and she takes xarelto. Suspect musculoskeletal etiology. (6) Hypothyroidism: TSH compensated. Cont synthroid. (7) Ambulatory dysfunction: Ongoing issue for some time. PT,OT evals - patient declined them. She lives with son who provides assistance. (8) Chronic fatigue syndrome: Related to chronic parasitic infection (if truly present)? fibromyalgia? CHF? mood disorder? other? (9) Parasite infection: chronic, diagnosed in [place] years ago. takes chronic doxycycline BID. takes flagyl with tinidazole on rotating basis on weekends only. (10) S/P tooth extraction: recent. blood cx's pending to r/o bacteremia but thus far negative. echo w/o endocarditis. no indication for abx at this time. (11) Chronic bronchitis: in 2018 had numerous issues related to this. No issues this admission. (12) DVT prophylaxis: xarelto if HRs are controlled overnight d/c home in am son updated at bedside today Subjective patient still w/ intermittent discomfort over left breast and left side of abdomen. occasionally brought on by movement. sharp/stabbing in nature. she thinks it is "inflammation." tele with a.fib rates <100 at rest. with minimal activity rates rise to >100 rapidly and peak about 135. no dyspnea. no cough. Constitutional: no fever Respiratory: no cough, no dyspnea and no dyspnea on exertion Cardiovascular: no chest pain, no orthopnea, no paroxysmal nocturnal dyspnea and no edema Gastrointestinal: no abdominal pain Physical Exam Vital Signs (Past 24 Hours): Last Vital Signs Temp 36.6 C 12/04/18 15:23 Pulse 87 12/04/18 17:07 Resp 18 12/04/18 15:23 BP 121/78 12/04/18 15:23 Pulse Ox 97 12/04/18 15:23 Constitutional: no acute distress and not ill appearing ENMT: external ear and nose normal, oropharynx normal Respiratory: normal respiratory effort, lungs clear to auscultation no respiratory distress Cardiovascular: Rate/Rhythm: regular rate and + irregularly irregular Heart Sounds: normal S1 and normal S2; no murmur Vessels: posterior tibial pulses present and dorsalis pedis pulses present; no JVD Extremities: no edema Gastrointestinal (Abdomen): Inspection/Auscultation: abdomen normal to inspection and normal bowel sounds; abdomen not distended Percussion/Palpation: abdomen soft; no guarding, abdomen not rigid and no hepatosplenomegaly Skin: hyperpigmentation of face and b/l legs Psychiatric: Orientation: alert and oriented x 3 Results & Data Laboratory Results Laboratory Results - last 24 hr 12/04/18 07:11 Sodium 137 Potassium 4.3 Chloride 104 Carbon Dioxide 27 Anion Gap 7.0 BUN 37 H Creatinine 1.16 Est Cr Clr Drug Dosing 53.0 Est GFR ( Amer) 54.9 Est GFR (Non-Af Amer) 47.3 BUN/Creatinine Ratio 32.2 H Glucose 86 Calcium 9.1 (1) Chest pain Chest pain type: unspecified Qualified Code(s): R07.9 - Chest pain, unspecified (2) Hypothyroidism Hypothyroidism type: acquired Qualified Code(s): E03.9 - Hypothyroidism, unspecified (3) Chronic bronchitis Chronic bronchitis type: unspecified Qualified Code(s): J42 - Unspecified chronic bronchitis
[2018-12-05] MEDS: LEVOTHYROXINE SODIUM 112 MCG TABLET PO SCH (05:47)
[2018-12-05 07:12] LABS: Calcium 9.1 mg/dl (8.5-10.1); Est GFR (African American) 58.5; Est GFR (Non-African American) 50.5; Potassium 4.1 mmol/L (3.5-5.1)
[2018-12-05] MEDS ORDERED: METOPROLOL SUCC 50MG EXT REL TAB PO STA (07:49)
[2018-12-05] MEDS: DOXYCYCLINE HYCLATE 100 MG CAP PO SCH ×2 (08:28→20:39)
[2018-12-05] MEDS: FUROSEMIDE 40 MG TAB PO SCH (08:29)
[2018-12-05] MEDS: CEROVITE ADV FORMULA TAB PO SCH (08:29)
[2018-12-05] MEDS: POTASSIUM CHLORIDE 10 MEQ TABCR PO SCH (08:29)
[2018-12-05] MEDS: predniSONE 5 MG TAB PO SCH (08:31)
[2018-12-05] MEDS: KETOROLAC TROMETHAMINE 15 MG/ML VIAL IV PRN ×2 (08:39→15:25)
[2018-12-05] MEDS: CARVEDILOL 12.5 MG TAB PO SCH ×2 (09:32→20:38)
[2018-12-05] MEDS: NON-FORMULARY PATIENT'S OWN MED TOP SCH (11:30)
[2018-12-05] MEDS: OXYCODONE/ACETAMINOPHEN 5mg/325mg TAB PO PRN ×3 (13:01→20:38)
--- NOTE | 2018-12-05 13:58 | Cardiology Progress Note ---
Date of Service December 05, 2018 Assessment & Plan (1) Atrial fibrillation with RVR: She has had a lot of difficulty with rate control during atrial fibrillation, however with her current regimen including the 18.75 mg of carvedilol this morning she is doing much better. I would recommend continuing this and she is anxious to go home. I think this is acceptable, at least for now. (2) Cardiomyopathy: Her cardiomyopathy may in part be rate related, by history she has had a catheterization showing no coronary artery disease. If it is rate related and we can control her heart rate that would be ideal, although that was tried before and she ended up going fast again. Another option is creation of heart block and biventricular pacing. This may be a better long-term option although for the short term we need beta-blockade anyhow and I would try to titrate her as an outpatient up to 25 mg twice a day of carvedilol. Subjective I was asked to see the patient regarding treatment of her heart rate. She has been having difficulty with high heart rates, especially with an increase in activity. Yesterday we thought that switching from carvedilol to metoprolol might help with rate control, however after 1 dose of metoprolol last evening she woke up with a severe headache and will no longer take metoprolol. She was on 12.5 mg of carvedilol twice a day and her blood pressure was borderline, however with her left ventricular dysfunction going up on the dose may not affect her heart rate dramatically. We therefore gave her 18.75 mg of carvedilol this morning (along with her other medications other than metoprolol). 2-3 hours after addition of the higher dose of carvedilol she was ambulated and currently feels very well. She is not having any palpitations, she does not have any side effects on the medications currently, and her heart rate did not increase substantially with activity. She did have an appropriate increase in heart rate but that is acceptable. Physical Exam Vital Signs (Past 24 Hours): Last Vital Signs Temp 36.8 C 12/05/18 11:56 Pulse 91 H 12/05/18 11:56 Resp 17 12/05/18 11:56 BP 119/86 12/05/18 11:56 Pulse Ox 99 12/05/18 11:56 Physical Exam: Constitutional: Alert, cooperative and in no distress. Pulmonary: Clear to auscultation bilaterally. Cardiac: Irregular rhythm with no murmur, gallop or rub. Abdomen: Soft, nontender with normal bowel sounds. Extremities: No edema. Skin: No rash, ecchymoses or petechiae. Results & Data Diagnostic Findings Telemetry: Atrial fibrillation throughout, heart rate elevated at times with activity, controlled overnight and this morning with activity
[2018-12-05] MEDS: RIVAROXABAN 20 MG TAB PO SCH (16:16)
[2018-12-05] MEDS: DIGOXIN 0.125 MG TAB PO SCH (16:16)
[2018-12-05] MEDS ORDERED: OXYCODONE/ACETAMINOPHEN 5mg/325mg TAB PO PRN (20:32)
--- NOTE | 2018-12-05 21:19 | Hospitalist Progress Note ---
Date of Service December 05, 2018 Assessment & Plan (1) Atrial fibrillation with RVR: Rates at rest are within goal with betablocker and digoxin. However, her rates w/ activity have been less than optimal. For that reason her coreg was changed to metoprolol yesterday with hopes this would lead to better rate control. She is adamant about NOT taking metoprolol (short or long-acting) and asks to go back to coreg. I discussed this w/ Dr. Li -- we will change BACK to coreg but increase th e dose to 18.75mg BID. Watch on monitor today especially when she ambulates. Dr. Li also talked to patient about possibility of AV maddy ablation and BiV pacer. This will be deferred for now in [place] of adjustments of AV maddy agents. Appreciate Dr. Li's recommendations. Continue xarelto. (2) TIA (transient ischemic attack): AM of 12/01/18. left-sided weakness with rapid resolution. TIA work-up negative. Patient refused MRI brain. Neuro consult appreciated. Cont xarelto in light of a.fib. (3) Left upper quadrant pain: Present since 08/2018. CT abd/pelvis w/ IV/PO contrast in addition to a thoracic spine CT did not reveal a specific etiology. Has had multiple CTs of the chest in the last year w/o specific etiology either. Suspect musculoskeletal etiology. cont K-pad heat. Recommended mammogram since pain is often over the left breast and also a colonoscopy since pain is often LUQ/LLQ. oxycodone prn but sparingly. (4) Chronic systolic CHF (congestive heart failure): Remains compensated. Cont BB. Cont lasix. BP too low for EDDA at this time. Echo this admission with EF 25-30%. Tachyarrhythmia induced from a.fib? Outpatient records indicate she has had cardiac cath in [place] within the last 8 years. I confirmed with patient and her son that the cath was entirely normal. She may had an element of acute/chronic CHF this admission -- now euvolemic. (5) Chest pain: Troponins negative. Most of her pain is left sided and in the upper abdomen. See discussion above in "left upper quadrant pain." Doubt ischemic. Has had multiple chest CTs in the past year-- none have shown PE, and she takes xarelto. Suspect musculoskeletal etiology. (6) Hypothyroidism: TSH compensated. Cont synthroid. (7) Ambulatory dysfunction: Ongoing issue for some time. PT,OT evals - patient declined them. She lives with son who provides assistance. (8) Chronic fatigue syndrome: Related to chronic parasitic infection (if truly present)? fibromyalgia? CHF? mood disorder? other? (9) Parasite infection: chronic, diagnosed in [place] years ago. takes chronic doxycycline BID. takes flagyl with tinidazole on rotating basis on weekends only. (10) S/P tooth extraction: recent. blood cx's negative. echo w/o endocarditis. no indication for abx at this time. (11) Chronic bronchitis: in 2018 had numerous issues related to this. No issues this admission. sats 100% in RA. normal lung exam. (12) DVT prophylaxis: xarelto if HRs are controlled overnight with increase in coreg then possible d/c home in am Subjective I saw the patient in conjunction with Dr Li. Even prior to our visit the pt's nurse stated that she was refusing to take the metoprolol xl. Upon our evaluation she reported headache after waking up this am along with feeling short of breath. She blamed both of these symptoms on the metoprolol tartrate that was given at bedtime last pm. She stated "I am not going to take the metoprolol again." She asked to go back to [employer]. Tele with good rate control overnight. Had 1 episode of transient bradycardia to the upper 30s with sleep. No new issues. Hoping to go home soon. Constitutional: no fever Respiratory: + dyspnea; no cough Cardiovascular: no chest pain, no orthopnea, no paroxysmal nocturnal dyspnea and no edema Gastrointestinal: no abdominal pain Physical Exam Vital Signs (Past 24 Hours): Last Vital Signs Temp 37.2 C 12/05/18 19:51 Pulse 101 H 12/05/18 19:51 Resp 22 12/05/18 19:51 BP 118/86 12/05/18 19:51 Pulse Ox 98 12/05/18 19:51 Constitutional: no acute distress and not ill appearing ENMT: external ear and nose normal, oropharynx normal Respiratory: normal respiratory effort, lungs clear to auscultation no respiratory distress Cardiovascular: Rate/Rhythm: regular rate and + irregularly irregular Heart Sounds: normal S1, normal S2 and + murmur (2/6 LLSB) Vessels: posterior tibial pulses present and dorsalis pedis pulses present; no JVD Extremities: no edema Gastrointestinal (Abdomen): Inspection/Auscultation: abdomen normal to inspection and normal bowel sounds; abdomen not distended Perc ussion/Palpation: abdomen soft; no guarding, abdomen not rigid and no hepatosplenomegaly Psychiatric: Orientation: alert and oriented x 3 Results & Data Laboratory Results Laboratory Results - last 24 hr 12/05/18 05:56 Sodium 137 Potassium 4.1 Chloride 106 Carbon Dioxide 28 Anion Gap 3.0 BUN 32 H Creatinine 1.10 Est Cr Clr Drug Dosing 56.0 Est GFR ( Amer) 58.5 Est GFR (Non-Af Amer) 50.5 BUN/Creatinine Ratio 29.0 H Glucose 89 Calcium 9.1 (1) Hypothyroidism Hypothyroidism type: acquired Qualified Code(s): E03.9 - Hypothyroidism, unspecified (2) Chest pain Chest pain type: unspecified Qualified Code(s): R07.9 - Chest pain, unspecified (3) Chronic bronchitis Chronic bronchitis type: unspecified Qualified Code(s): J42 - Unspecified chronic bronchitis
[2018-12-06] MEDS: LEVOTHYROXINE SODIUM 112 MCG TABLET PO SCH (06:17)
[2018-12-06 06:53] LABS: BUN Creatinine Ratio 26.9 (10-20); Calcium 9.1 mg/dl (8.5-10.1); Creatinine Clr Calc Pharmacy 50.6 ml/min; Est GFR (African American) 51.6; Est GFR (Non-African American) 44.5; Potassium 4.2 mmol/L (3.5-5.1)
[2018-12-06] MEDS: POTASSIUM CHLORIDE 10 MEQ TABCR PO SCH (07:37)
[2018-12-06] MEDS: FUROSEMIDE 40 MG TAB PO SCH (07:37)
[2018-12-06] MEDS: CEROVITE ADV FORMULA TAB PO SCH (07:37)
[2018-12-06] MEDS: CARVEDILOL 12.5 MG TAB PO SCH (07:37)
[2018-12-06] MEDS: predniSONE 5 MG TAB PO SCH (07:37)
[2018-12-06] MEDS: NON-FORMULARY PATIENT'S OWN MED TOP SCH (07:38)
[2018-12-06] MEDS: DOXYCYCLINE HYCLATE 100 MG CAP PO SCH (07:38)
[2018-12-06] MEDS ORDERED: dilTIAZem HCL 180 MG CAPCR PO SCH (10:45)
--- NOTE | 2018-12-06 15:01 | Discharge Summary ---
Date of Service December 06, 2018 Admission HPI Per Admitting Provider This is a 73-year-old female with PMHx of paroxysmal A. fib on Xarelto, chronic CHF, combined type diastolic and systolic, hypertension, chronic hyponatremia, hypothyroidism, multinodular goiter, ambulatory dysfunction, chronic opioid use, who presents after routine PCP appointment this morning and being found to be in Afib with RVR. The patient's son is with her at bedside. Patient reports that she has not felt well overall since of August 2018, and that she has a chronic left-sided dull aching pain which has not been able to be alleviated with any standard medication. She denies any changes in her diet, ADLs, and takes chronic oxycodone-acetaminophen tablets for pain relief. She felt significantly worse this morning with lightheadedness, dizziness, unsteady her gait than usual, palpitations and some shortness of breath. She does feel like this is similar to her previous A. fib episodes, however this episode was more severe. She recently had a dental extraction last Thursday, and has been taking liquid Keflex 4 times daily since then. She denies fever, sweats or chills. Patient reports pain in her mouth is moderate, IV toradol given in the ER and has alleviated the majority of her pain. Pt was found to be in A. fib with RVR with heart rate in the 130-140s at time of arrival in the ER, was started on a diltiazem drip. Her rate has improved into the 110s but has not yet converted during my exam. Admission Exam Per Admitting Provider General: awake, alert, no apparent distress Head: Normocephalic, atraumatic, + hyperpigmentation of the face ENT: PERRL, EOMI, no pharyngeal exudate, mucous membranes moist, + poor dentition Chest: Clear to auscultation, on room air, no adventitious breath sounds Cardiac: Irregularly irregular HR in 110s, no murmur, no JVD, normal peripheral pulses Abdominal: NABS x 4 quadrants, soft, +slightly distended, nontender to palpation, no rebound, guarding or tenderness Extremities: + hyperpigmentation over the shins bilaterally, no peripheral edema or erythema, calfs nontender to palpation Psych: Normal mood and affect Neuro: AAO x 3, strength intact bilaterally and related 5/5, no motor deficits, speech is clear, no peripheral sensory deficits Principal Diagnosis Atrial fibrillation with RVR Discharge Exam Constitutional WD/WN, vitals as above Eyes PERRL, conjunctivae normal, anicteric sclerae ENMT external ear and nose normal, oropharynx normal Neck trachea midline, no thyromegaly Respiratory normal respiratory effort, lungs clear to auscultation Cardiovascular Rate/Rhythm: regular rate; + abnormal rhythm (irregular irregular) Heart Sounds: normal S1 and normal S2; no murmur Vessels: normal peripheral pulses; no JVD Extremities: no edema Gastrointestinal (Abdomen) normal bowel sounds, soft, nontender, no hepatosplenomegaly Musculoskeletal no cyanosis or clubbing, extremities motor strength 5/5 Skin no rashes, warm and dry Neurologic patellar DTR's 2+ bilat, sensation intact and PERRL, EOMI, accommodation nl, no face palsy, no dysarthria Psychiatric A+Ox3, euthymic affect Lymphatic no cervical or axillary lymphadenopathy Discharge Data Allergies Allergy/AdvReac Type Severity Reaction Status Date / Time codeine AdvReac Intermediate SEVERE GI Verified 11/30/18 13:39 SYMPTOMS Consultations 11/30/18 12:41 ED Decision to Admit Stat 11/30/18 14:36 Consult Health Information Management Stat 11/30/18 17:42 Consult Cardiology Routine Consult Case Management - Discharge Planning Routine 12/01/18 07:27 Consult Neurology Routine Ordered Studies 12/01/18 06:31 CT head/brain wo con Stat 12/01/18 06:33 CT angio head w con Stat 12/01/18 06:37 CT angio neck with con Stat 12/03/18 14:47 CT abd pelvis oral and IV con Routine CT thoracic spine wo con Routine Hospital Course (1) Atrial fibrillation with RVR: Rates at rest are within goal with betablocker and digoxin. However, her rates w/ activity have been less than optimal. patient refused to change to Metoprolol, so her Coreg was increased to 18.75mg BID she took a dose in the evening on 12/05 and she reported that it caused her a great deal of chest pain, dyspnea she refused to take the Coreg in the morning on 12/06 her resting HR was 90-100s and with walking it went up to 120's no chest pain, no palpitations suggested we try Diltiazem 180mg x 1 dose lowered her HR to the 80's resting and low 100's on exertion she felt well and wanted to go home plan for discharge will be Diltiazem 180mg daily, Digoxin 0.125mg daily Continue xarelto. follow up with cardiology in 1-2 week (2) TIA (transient ischemic attack): AM of 12/01/18. left-sided weakness with rapid resolution. TIA work-up negative. Patient refused MRI brain. Neuro consult appreciated. Cont xarelto in light of a.fib. (3) Left upper quadrant pain: Present since 08/2018. CT abd/pelvis w/ IV/PO contrast in addition to a thoracic spine CT did not reveal a specific etiology. Has had multiple CTs of the chest in the last year w/o specific etiology either. Suspect musculoskeletal etiology. cont K-pad heat. Recommended mammogram since pain is often over the left breast and also a colonoscopy since pain is often LUQ/LLQ. oxycodone prn but sparingly. (4) Chronic systolic CHF (congestive heart failure): Remains compensated. Coreg changed to Diltiazem for rate control, patient refuses to take Coreg Cont lasix. BP too low for EDDA at this time. Echo this admission with EF 25-30%. Tachyarrhythmia induced from a.fib? Outpatient records indicate she has had cardiac cath in [place] within the last 8 years. I confirmed with patient and her son that the cath was entirely normal. She may had an element of acute/chronic CHF this admission -- now euvolemic. (5) Chest pain: Troponins negative. Most of her pain is left sided and in the upper abdomen. See discussion above in "left upper quadrant pain." Doubt ischemic. Has had multiple chest CTs in the past year-- none have shown PE, and she takes xarelto. Suspect musculoskeletal etiology. (6) Hypothyroidism: TSH compensated. Cont synthroid. (7) Ambulatory dysfunction: Ongoing issue for some time. PT,OT evals - patient declined them. She lives with son who provides assistance. (8) Chronic fatigue syndrome: Related to chronic parasitic infection (if truly present)? fibromyalgia? CHF? mood disorder? other? (9) Parasite infection: chronic, diagnosed in [place] years ago. takes chronic doxycycline BID. takes flagyl with tinidazole on rotating basis on weekends only. (10) S/P tooth extraction: recent. blood cx's negative. echo w/o endocarditis. no indication for abx at this time. (11) Chronic bronchitis: in 2018 had numerous issues related to this. No issues this admission. sats 100% in RA. normal lung exam. (12) DVT prophylaxis: xarelto Total Time Total Time Spent Total Time Spent (In Minutes): 40 minutes Total Time Includes: Examination of the Patient, Discharge Planning and Medication Reconciliation Discharge Plan Discharge Items Patient Disposition: Home - Self-Care Reason For Visit: AFIB WITH RVR Discharge Diagnosis: Atrial fibrillation with RVR Condition: Good Discharge Goals: Improve disease control and Improve function Activity: Resume your previous activity Non-emergency contact: Primary Care Provider and [facility] Agent Call non-emergency contact if: you have any medication questions, your symptoms worsen and you have a fever Follow-up/Referrals: Michael Li MD [Physician] - 12/17/18 10:40 am (Please, follow up at [facility] Office with Dr. Li on ThursdayDecember 17 at 11:00 am (arrive 10:40 am). *This office is located in [address] of [facility] next to this [facility]. If you need to change this appointment, call the office at [phone].) Qasim Rangel MD [Primary Care Provider] - 12/10/18 3:40 pm (Please, follow up with Dr. Rangel on ThursdayDecember 10 at 3:40 pm. *If you need to change this appointment, call the office at [phone].) Diet: Heart Healthy Add Provider Instructions: Medications: - COREG: dose increased to 18.75mg twice a day, take this for heart rate control - DIGOXIN: started for atrial fibrillation, take daily Atrial fibrillation with rapid ventricular response cardiology recommends taking Coreg and Digoxin continue Xarelto for anticoagulation for stroke prevention without the Coreg and Digoxin you are at risk of developing fast heart rates at home FOLLOW UP - Dr. Rangel in one week - Dr. Li in 2-3 weeks Prescriptions: New digoxin 125 mcg Tablet 0.125 mg PO DAILY@1600 30 Days Qty: 30 RF: 3 diltiazem HCl 180 mg Capsule,Extended Release 24hr 180 mg PO QAM 30 Days Qty: 30 RF: 1 Continued multivitamin [Multiple Vitamins] Tablet 1 tab PO QAM RF: 0 furosemide 40 mg tablet 40 mg PO QAM RF: 0 minocycline 100 mg capsule 200 mg PO BID RF: 0 prednisone 5 mg tablet 5 mg PO QAM RF: 0 cephalexin 125 mg/5 mL suspension for reconstitution 5 ml PO QID RF: 0 metronidazole 500 mg tablet 500 mg PO DIRECTED RF: 0 oxycodone-acetaminophen 5-325 mg tablet 1 tab PO UD PRN (Reason: Pain) RF: 0 benzonatate [Tessalon Perles] 100 mg Capsule 100 mg PO BID PRN (Reason: Cough) RF: 0 furosemide 20 mg tablet 20 mg PO DIRECTED PRN (Reason: Fluid Retention) RF: 0 lisinopril 40 mg tablet 40 mg PO QAM RF: 0 levothyroxine 112 mcg tablet 1 tab PO QAM RF: 0 tinidazole 500 mg tablet 500 mg PO DIRECTED RF: 0 Xarelto 20 mg tablet 20 mg PO QPM RF: 0 Discontinued carvedilol 6.25 mg tablet 1 tab PO BID RF: 0 Stand-Alone Forms: [facility]/Other Patient Handouts: Diltiazem Hydrochloride Oral tablet, AFL/Afib, Digoxin Discharge Orders: Discharge Order (Routine); Ordered 12/06/18 Ordered By: Raffi Moyer Admission Data Admit Date/Time: 11/30/18 14:30 Attending Provider: Raffi Moyer Admit Provider: Angela Mazariegos Primary Care Provider: Qasim Rangel Other Providers: Angela Mazariegos ; Abbe Shah ; Ming Villasenor III Service: Telemetry Other Interventions: Discharge Summary Assessment (RN) Last Done: 12/06/18 12:41 DC Date/Time DO NOT enter until pt leaves facility: 12/06/18 13:27
--- NOTE | 2018-12-08 09:18 | Coding Query ---
CONGESTIVE HEART FAILURE To Promote full compliance with coding requirements relating to patient care, physician participation is requested in all cases of [employer] flatbed driver uncertainty. Please assist us with the following questions. BOTH CHRONIC SYSTOLIC HEART FAILURE AND UNSPECIFED COMBINED SYSTOLIC AND DIASTOLIC HEART FAILURE IS DOCUMENTED WITHIN THE RECORD CAN YOU PLEASE CLARIFY THE DIAGNOSIS OF CHF BELOW. SYSTOLIC HEART FAILURE ( ) Acute ( ) Chronic ( ) Acute on Chronic ( ) Rheumatic ( ) Unknown DIASTOLIC HEART FAILURE ( ) Acute ( ) Chronic ( ) Acute on Chronic ( ) Rheumatic ( ) Unknown COMBINED SYSTOLIC AND DIASTOLIC HEART FAILURE ( ) Acute ( x) Chronic ( ) Acute on Chronic ( ) Rheumatic ( ) Unknown Was the CHF Present On Admission? Please check the appropriate box: ( ) Present on Admission ( ) Not Present On Admission ( ) Clinically undetermined Thank you Rosa Elena KIM
== END 2018-12-06 13:27 | disposition home or self-care (01) | DRG 309 ==
LOC: ED 10:53 → SUATTDRO 14:30 → 2E 14:30 → 1E 12-01 07:22 → 2E 12-01 07:29

== ENCOUNTER 2020-01-25 19:10 | Observation (INO) ==
[2020-01-25] MEDS ORDERED: NITROGLYCERIN SL 0.4 MG/TAB TAB SL PRN ×2 (20:02→23:53)
[2020-01-25] MEDS ORDERED: SODIUM CHLORIDE 0.9% 250 ML IV ONE (20:02)
[2020-01-25] MEDS ORDERED: ASPIRIN CHEW 324 MG PO STA (20:02)
[2020-01-25 20:08] LABS: Basophils # (auto) 0.03 K/uL (0-0.2); Basophils % (auto) 0.5 %; Eosinophils # (auto) 0.04 K/uL (0-0.5); Eosinophils % (auto) 0.6 %; Hemoglobin 12.9 g/dL (12.0-16.0); Immature Granulocytes # (auto) 0.01 K/uL (0.00-0.02); Immature Granulocytes % (auto) 0.2 %; Lymphocytes # (auto) 1.96 K/uL (1.2-3.4); Lymphocytes % (auto) 31.6 %; Mean Corpuscular Hemoglobin 33.5 pg (25-34); Mean Corpuscular Hgb Conc 33.9 g/dL (32-36); Mean Corpuscular Volume 98.7 fL (80-100); Monocytes # (auto) 0.78 K/uL (0.11-0.59); Monocytes % (auto) 12.6 %; Neutrophils # (auto) 3.39 K/uL (1.4-6.5); Neutrophils % (auto) 54.5 %; Nucleated RBC # (auto) 0.03 K/uL (0-0); Nucleated RBC % (auto) 0.4 %; Platelet Count 169 K/uL (130-400); RDW Coefficient of Variation 13.7 % (11.5-14.5); RDW Standard Deviation 49.6 fL (36.4-46.3); Red Blood Count 3.85 M/uL (4.2-5.4); White Blood Count 6.21 K/uL (4.8-10.8)
--- NOTE | 2020-01-25 20:10 | XRay Report ---
XR chest 1V portable CLINICAL HISTORY: Chest Pain dyspnea COMPARISON STUDY: 12/16/2019 FINDINGS: The bones soft tissues and hemidiaphragms are normal. The cardiomediastinal silhouette is n ormal. The lungs are clear. The pulmonary vasculature is normal. IMPRESSION: Negative chest. ACT 112: Negative or not required by law. The above report was generated using voice recognition software. It may contain grammatical, syntax or spelling errors. Electronically signed by: Ministerio Bowen M.D. 01/25/2020 8:09 PM
--- NOTE | 2020-01-25 20:20 | Emergency Department Note ---
Impression & Plan Chest pain, Atrial fibrillation, Breath shortness, Chronic anticoagulation ED Provider Note NAME: GARFIELD MCCORMICK AGE: 74 SEX: F : 1945 ARRIVES VIA: Walk-In INFORMANT: Patient ED PROVIDER(S): Luke Lopez DO CHIEF COMPLAINT: Chest pain and shortness of breath HPI: Patient is a 74-year-old female who presents the ER for chest pain. She has an extensive past medical history which includes pulmonary hypertension, cardiomyopathy, CHF, TIA and A. fib. She notes that her chest pain started earlier today. She describes it as a pressure/heaviness on the left side of her chest. Lasted for about 5 minutes and will come and go intermittently. She has shortness of breath associated with this. She denies any cough, fevers, runny nose, exposure to anyone with coronavirus or sore throat. She also notes that she has some nausea in her stomach but denies any belly pain. She is also fixated on her tooth that she feels as though it is going to fall out. She notes that she wants to stop her shallow breathing but she cannot. ROS: See above HPI for pertinent positives & negatives. A total of 10 systems reviewed and were otherwise negative. PAST MEDICAL HISTORY:See Below PAST SURGICAL HISTORY:See Below FAMILY HISTORY:See Below SOCIAL HISTORY:See Below HOME MEDICATIONS:See Below ALLERGIES:See Below VITALS:See Below PHYSICAL EXAMINATION: GENERAL: Sitting up in bed, alert, chronically ill-appearing, disheveled, anxious and cursing EYE EXAM: normal conjunctiva. OROPHARYNX: Terrible dentition with multiple dental caries NECK: supple, no nuchal rigidity, no adenopathy, non-tender LUNGS: Clear to auscultation. Normal chest wall mechanics HEART: no murmurs, S1 normal and S2 normal ABDOMEN: abdomen soft, non-tender, normo-active bowel sounds, no masses, no rebound or guarding. BACK: Back is symmetrical on inspection and there is no deformity, no midline tenderness, no CVA tenderness. SKIN: no rashes and no bruising UPPER EXTREMITIES: upper extremities are grossly normal. LOWER EXTREMITIES: No pitting edema. Calves are equal bilateral NEURO EXAM: Normal sensorium, cranial nerves II-XII grossly intact, normal speech, no gross weakness of arms, no gross weakness of legs. MEDICAL DECISION MAKING: Patient is a 74-year-old female who presents the ER for shortness of breath associated with chest pain. She has an extensive past medical history of CHF, A. fib on Xarelto, cardiomyopathy and pulmonary hypertension. IV was established blood work was obtained. Labs show no significant leukocytosis or anemia. INR was at 1.7. She has not missed any doses of Xarelto doubt PE. BMP with a creatinine of 1.67 slightly up from a baseline of 1.3. LFTs, bilirubin and troponin was negative. Lipase at 428. Abdominal exam is unremarkable. EKG was unchanged from previous. Chest x-ray was unremarkable. There is no signs of CHF. She was given nitro and aspirin; following this she started having short shallow breaths. She was given a dose of Ativan as she was fairly worked up. She was updated bedside. Discussed with the hospitalist for further evaluation and chest pain work-up. Triage Nursing notes reviewed. Prior medical records reviewed Vital Signs: reviewed and remarkable for no significant abnormalities Differential diagnosis: Differential diagnoses includes but is not limited to acute coronary syndrome, myocardial infarction, pericarditis, pulmonary embolus, aortic dissection, pneumonia, pneumothorax, musculoskeletal, shingles, esophageal. ER treatment provided: See below Diagnostics interpreted by me: ECG: A. fib rate 88 Left axis Low voltage Nonspecific ST wave changes V2 through V6 Normal QTC Cardiac Monitoring: An order was placed for continuous cardiac monitoring. The monitor shows a rate of 82 with sinus rhythm. Laboratory studies: As stated above and show below. Imaging studies: Audible AP upright 1 view of the chest shows no focal infiltrate or pneumothorax Consultation(s): Dr. Ni Herman ED COURSE: Procedures: none Critical Care: None Past Med/Surg History Social History Preferred Language: Portuguese Communication Ability: Effective Community Health Nurse Supervisor Required: No Beliefs That Will Affect Care: None Current Living Situation: Alone current occupational status: retired and disabled other: Disabled in her 50s. 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 Safe at Home: Yes Smoking Status: Never smoker Second Hand Exposure: No ; Hx Alcohol Use: No Hx Substance Use: No Allergies Allergies Allergy/AdvReac Type Severity Reaction Status Date / Time codeine AdvReac Intermediate SEVERE GI Verified 01/25/20 20:55 SYMPTOMS Home Meds Home Medications Medication Instructions Recorded Confirmed Xarelto 20 mg PO DAILY@1600 11/30/18 01/25/20 furosemide 40 mg PO QAM 11/30/18 01/25/20 levothyroxine 112 tab PO QAM 11/30/18 01/25/20 multivitamin [Multiple Vitamins] 1 tab PO QAM 11/30/18 01/25/20 digoxin 125 mcg (0.125 mg) tablet 125 mcg PO DAILY@1600 07/07/19 01/25/20 diltiazem HCl [Cartia XT] 180 mg PO QAM 12/11/19 01/25/20 lisinopril 40 mg PO QAM 12/11/19 01/25/20 oxycodone-acetaminophen 1 - 1.5 tab PO BID PRN 12/11/19 01/25/20 zolpidem 10 mg PO HS 12/11/19 01/25/20 ergocalciferol (vitamin D2) 50,000 unit PO MOWEFR 12/16/19 01/25/20 [Vitamin D2] minocycline 100 mg PO BID 01/25/20 01/25/20 Previous Rx's Medication Instructions Recorded carvedilol 25 mg tablet 25 mg PO BID #60 tab 07/07/19 prednisone 20 mg PO DAILY 5 Days #5 tab 01/23/20 Results & Data (ED) Vital Signs Vital Signs - 24 hr 01/25/20 19:16 01/25/20 19:30 01/25/20 19:49 Temperature 37.0 C Temperature Source Oral Pulse Rate 89 78 Pulse Rate from SpO2 Sensor Respiratory Rate 20 25 H Blood Pressure 113/43 L 107/69 Blood Pressure Mean 66 79 Pulse Oximetry 100 96 Oxygen Delivery Method Room Air Room Air Room Air Sepsis Recent Fever Within 48 Hours No Sepsis New/Unexplained Change in Mental Status No Sepsis Action Taken by Nursing No Action Required 01/25/20 20:01 01/25/20 20:31 01/25/20 21:01 Temperature Temperature Source Pulse Rate 79 68 83 Pulse Rate from SpO2 Sensor 74 79 Respiratory Rate 17 21 29 H Blood Pressure 122/79 114/52 L 116/55 L Blood Pressure Mean 93 65 69 Pulse Oximetry 100 100 100 Oxygen Delivery Method Room Air Room Air Room Air Sepsis Recent Fever Within 48 Hours Sepsis New/Unexplained Change in Mental Status Sepsis Action Taken by Nursing 01/25/20 21:30 01/25/20 22:00 Temperature Temperature Source Pulse Rate 82 77 Pulse Rate from SpO2 Sensor 104 H 78 Respiratory Rate 19 24 Blood Pressure 143/64 H 131/82 Blood Pressure Mean 90 108 Pulse Oximetry 100 100 Oxygen Delivery Method Room Air Room Air Sepsis Recent Fever Within 48 Hours Sepsis New/Unexplained Change in Mental Status Sepsis Action Taken by Nursing Laboratory Data Result diagrams: 01/25/20 20:00 01/25/20 20:00 Lab Results 01/25/20 01/25/20 01/25/20 Range/Units 20:00 20:00 20:00 WBC 6.21 (4.8-10.8) K/uL RBC 3.85 L (4.2-5.4) M/uL Hgb 12.9 (12.0-16.0) g/dL Hct 38.0 (37-47) % MCV 98.7 (80-100) fL MCH 33.5 (25-34) pg MCHC 33.9 (32-36) g/dL RDW Std Deviation 49.6 H (36.4-46.3) fL RDW Coeff of [place] 13.7 (11.5-14.5) % Plt Count 169 (130-400) K/uL MPV 11.0 H (7.4-10.4) fL Immature Gran % (Auto) 0.2 % Neut % (Auto) 54.5 % Lymph % (Auto) 31.6 % [place] % (Auto) 12.6 % Eos % (Auto) 0.6 % Baso % (Auto) 0.5 % Immature Gran # (Auto) 0.01 (0.00-0.02) K/uL Neut # (Auto) 3.39 (1.4-6.5) K/uL Lymph # (Auto) 1.96 (1.2-3.4) K/uL [place] # (Auto) 0.78 H (0.11-0.59) K/uL Eos # (Auto) 0.04 (0-0.5) K/uL Baso # (Auto) 0.03 (0-0.2) K/uL Absolute Nucleated RBC 0.03 H (0-0) K/uL Nucleated RBC % (auto) 0.4 % PT 17.1 H (9.0-12.0) Seconds INR 1.7 H (0.9-1.1) APTT 37.6 H (21.0-31.0) Seconds PTT Ratio 1.3 Sodium 136 (136-145) mmol/L Potassium 4.4 (3.5-5.1) mmol/L Chloride 106 (98-107) mmol/L Carbon Dioxide 24 (21-32) mmol/L Anion Gap 7.0 (3-11) BUN 61 H (7-18) mg/dl Creatinine 1.67 H (0.6-1.2) mg/dl Est Cr Clr Drug Dosing Not Reportable Est GFR ( Amer) 35.1 Est GFR (Non-Af Amer) 30.3 BUN/Creatinine Ratio 36.4 H (10-20) Glucose 81 (70-99) mg/dl POC Glucose (70-99) mg/dl Calcium 8.9 (8.5-10.1) mg/dl Total Bilirubin 0.6 (0.2-1) mg/dl AST 32 (15-37) U/L ALT 45 (12-78) U/L Alkaline Phosphatase 148 H (45-117) U/L Troponin I < 0.015 (0-0.045) ng/ml Total Protein 6.9 (6.4-8.2) gm/dl Albumin 3.2 L (3.4-5.0) gm/dl Globulin 3.6 (2.5-4.0) gm/dl Albumin/Globulin Ratio 0.9 (0.9-2) Lipase 428 H (73-393) U/L Digoxin (0.8-2.0) ng/ml 01/25/20 01/25/20 Range/Units 20:00 22:20 WBC (4.8-10.8) K/uL RBC (4.2-5.4) M/uL Hgb (12.0-16.0) g/dL Hct (37-47) % MCV (80-100) fL MCH (25-34) pg MCHC (32-36) g/dL RDW Std Deviation (36.4-46.3) fL RDW Coeff of [place] (11.5-14.5) % Plt Count (130-400) K/uL MPV (7.4-10.4) fL Immature Gran % (Auto) % Neut % (Auto) % Lymph % (Auto) % [place] % (Auto) % Eos % (Auto) % Baso % (Auto) % Immature Gran # (Auto) (0.00-0.02) K/uL Neut # (Auto) (1.4-6.5) K/uL Lymph # (Auto) (1.2-3.4) K/uL [place] # (Auto) (0.11-0.59) K/uL Eos # (Auto) (0-0.5) K/uL Baso # (Auto) (0-0.2) K/uL Absolute Nucleated RBC (0-0) K/uL Nucleated RBC % (auto) % PT (9.0-12.0) Seconds INR (0.9-1.1) APTT (21.0-31.0) Seconds PTT Ratio Sodium (136-145) mmol/L Potassium (3.5-5.1) mmol/L Chloride (98-107) mmol/L Carbon Dioxide (21-32) mmol/L Anion Gap (3-11) BUN (7-18) mg/dl Creatinine (0.6-1.2) mg/dl Est Cr Clr Drug Dosing Est GFR ( Amer) Est GFR (Non-Af Amer) BUN/Creatinine Ratio (10-20) Glucose (70-99) mg/dl POC Glucose 101 H (70-99) mg/dl Calcium (8.5-10.1) mg/dl Total Bilirubin (0.2-1) mg/dl AST (15-37) U/L ALT (12-78) U/L Alkaline Phosphatase (45-117) U/L Troponin I (0-0.045) ng/ml Total Protein (6.4-8.2) gm/dl Albumin (3.4-5.0) gm/dl Globulin (2.5-4.0) gm/dl Albumin/Globulin Ratio (0.9-2) Lipase (73-393) U/L Digoxin 0.6 L (0.8-2.0) ng/ml Administered Medications Nitroglycerin (Nitrostat) 0.4 mg SL PRN PRN PRN Reason: Chest Pain Stop: 02/24/20 20:01 Last Admin: 01/25/20 20:18 Dose: 0.4 mg Documented by: [id number] Discontinued Medications Aspirin (Aspirin) 324 mg PO NOW STA Stop: 01/25/20 20:03 Last Admin: 01/25/20 20:18 Dose: 324 mg Documented by: [id number] Sodium Chloride (Nss) 250 mls @ 999 mls/hr IV .Q16M ONE Stop: 01/25/20 20:17 Last Infusion: 01/25/20 20:39 Dose: 0 mls/hr Documented by: [id number] Admin: 01/25/20 20:18 Dose: 999 mls/hr Documented by: [id number] Lorazepam (Ativan) 0.5 mg SL NOW STA Stop: 01/25/20 21:22 Last Admin: 01/25/20 21:27 Dose: 0.5 mg Documented by: [id number] Discharge Plan Visit Data Chief Complaint: Chest Pain Stated Complaint: CHEST PAIN ED Provider: Luke Lopez Discharge Problem: Chest pain, Atrial fibrillation, Breath shortness, Chronic anticoagulation Forms Stand Alone Forms: [facility] Prescriptions Prescriptions: No Action digoxin 125 mcg (0.125 mg) tablet 125 mcg PO DAILY@1600 RF: 0 carvedilol 25 mg tablet 25 mg PO BID Qty: 60 RF: 2 multivitamin [Multiple Vitamins] Tablet 1 tab PO QAM RF: 0 furosemide 40 mg tablet 40 mg PO QAM RF: 0 levothyroxine 112 mcg tablet 112 tab PO QAM RF: 0 Xarelto 20 mg tablet 20 mg PO DAILY@1600 RF: 0 diltiazem HCl [Cartia XT] 180 mg capsule,extended release 24hr 180 mg PO QAM RF: 0 oxycodone-acetaminophen 5-325 mg tablet 1 - 1.5 tab PO BID PRN (Reason: Pain) RF: 0 zolpidem 10 mg tablet 10 mg PO HS RF: 0 lisinopril 40 mg tablet 40 mg PO QAM RF: 0 ergocalciferol (vitamin D2) [Vitamin D2] 1,250 mcg (50,000 unit) Capsule 50,000 unit PO MOWEFR RF: 0 prednisone 20 mg tablet 20 mg PO DAILY 5 Days Qty: 5 RF: 0 minocycline 100 mg capsule 100 mg PO BID RF: 0 Discharge Problem: Chest pain Qualifiers: Chest pain type: unspecified Qualified Code(s): R07.9 - Chest pain, unspecified Atrial fibrillation Qualifiers: Atrial fibrillation type: unspecified Qualified Code(s): I48.91 - Unspecified atrial fibrillation
[2020-01-25 20:21] LABS: INR 1.7 (0.9-1.1); Partial Thromboplastin Ratio 1.3; Partial Thromboplastin Time 37.6 Seconds (21.0-31.0); Prothrombin Time 17.1 Seconds (9.0-12.0)
[2020-01-25 20:31] LABS: Alanine Aminotransferase 45 U/L (12-78); Albumin Level 3.2 gm/dl (3.4-5.0); Aspartate Aminotransferase 32 U/L (15-37); BUN Creatinine Ratio 36.4 (10-20); Blood Urea Nitrogen 61 mg/dl (7-18); Calcium 8.9 mg/dl (8.5-10.1); Carbon Dioxide 24 mmol/L (21-32); Chloride 106 mmol/L (98-107); Est GFR (African American) 35.1; Est GFR (Non-African American) 30.3; Glucose 81 mg/dl (70-99); Lipase 428 U/L (73-393); Potassium 4.4 mmol/L (3.5-5.1); Sodium 136 mmol/L (136-145)
[2020-01-25 20:57] LABS: Albumin Globulin Ratio 0.9 (0.9-2); Alkaline Phosphatase 148 U/L (45-117); Bilirubin,Total 0.6 mg/dl (0.2-1); Globulin 3.6 gm/dl (2.5-4.0); Total Protein 6.9 gm/dl (6.4-8.2); Troponin I < 0.015 ng/ml (0-0.045)
[2020-01-25] MEDS ORDERED: LORazepam 1 MG TAB SL STA (21:21)
--- NOTE | 2020-01-25 22:46 | History & Physical Report ---
Date of Service January 25, 2020 Assessment & Plan (1) Chest pain: Patient presents with episodic left sided chest discomfort. EKG with AF, evidence of old ischemic disease. Troponin x 1 negative. She was given ASA and Nitro in ER with improvement. -Admit to medical floor with telemetry monitoring -Trend troponin q 8 hours x 3 sets -Continue Carvedilol -Hold Lisinopril for now pending repeat labs Present on Admission?: Yes (2) Atrial fibrillation: Rate controlled, anticoagulated on Xarelto -Continue Digoxin, check level in AM -Continue Diltiazem -Continue Xarelto Present on Admission?: Yes (3) Hypothyroidism: Chronic -Check TSH with AM labs -Continue Synthroid Present on Admission?: Yes (4) Chronic systolic CHF (congestive heart failure): Chronic systolic. Patient appears euvolemic on exam. She follows with Cardiology - last seen by Dr. Li on 07/07/19. -Continue Carvedilol -Hold Lisinopril for now pending repeat renal panel -Hold Lasix for now -Possible switch to Entresto per outpatient Cardiology notes -Echocardiogram as above, assess possible need for AICD implantation. Present on Admission?: Yes (5) Chronic, continuous use of opioids: Chronic. Patient reports pain is well controlled -Continue Percocet PRN at home dose Present on Admission?: Yes Admission and Anticipated Discharge Date Admission Date: 01/25/20 Anticipated date of discharge: 01/27/20 History of Present Illness Chief Complaint: chest discomfort, rapid shallow breathing Primary Care Provider: Qasim Rangel MD Eva Ford is a 74yo C female with history of AF on anticoagulation, hypothyroidism, CHF presenting from home with complaint of chest discomfort. She reports her symptoms began this afternoon after lunch, left sided chest pressure, occurring intermittently and resolving on their own. Also with complaint of shortness of breath and needing to take rapid/shallow breaths. She denies fevers/chills/abdominal pain/nausea/vomiting/diarrhea. She does admit to slight dysuria. Patient was seen in the ER on 01/23/20 with complaint of severe left leg pain, 10/10 radiating from her back. She had a CT of her lumbar spine which demonstrated spinal stenosis. She was treated with IV morphine and steroids with improvement. She was discharged home with Prednisone and instructed to followup with her PCP. No complaints of back pain today. She was unable to tolerate the Prednisone due to nausea. ER Course: ASA, Ativan, Nitro, NSS Allergies Allergy/AdvReac Type Severity Reaction Status Date / Time codeine AdvReac Intermediate SEVERE GI Verified 01/25/20 20:55 SYMPTOMS Home Medications Home Medications Medication Instructions Recorded Confirmed Type Xarelto 20 mg PO DAILY@1600 11/30/18 01/25/20 History furosemide 40 mg PO QAM 11/30/18 01/25/20 History levothyroxine 112 tab PO QAM 11/30/18 01/25/20 History multivitamin [Multiple Vitamins] 1 tab PO QAM 11/30/18 01/25/20 History carvedilol 25 mg tablet 25 mg PO BID #60 tab 07/07/19 01/25/20 Rx digoxin 125 mcg (0.125 mg) tablet 125 mcg PO DAILY@1600 07/07/19 01/25/20 History diltiazem HCl [Cartia XT] 180 mg PO QAM 12/11/19 01/25/20 History lisinopril 40 mg PO QAM 12/11/19 01/25/20 History oxycodone-acetaminophen 1 - 1.5 tab PO BID PRN 12/11/19 01/25/20 History zolpidem 10 mg PO HS 12/11/19 01/25/20 History ergocalciferol (vitamin D2) 50,000 unit PO MOWEFR 12/16/19 01/25/20 History [Vitamin D2] prednisone 20 mg PO DAILY 5 Days #5 tab 01/23/20 01/25/20 Rx minocycline 100 mg PO BID 01/25/20 01/25/20 History Past Med/Surg History Social History Preferred Language: Mongolian Communication Ability: Effective Truck Hopper Required: No Beliefs That Will Affect Care: None Current Living Situation: Alone current occupational status: retired and disabled other: Disabled in her 50s. 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 Safe at Home: Yes Smoking Status: Never smoker Second Hand Exposure: No ; Hx Alcohol Use: No Hx Substance Use: No Review of Systems Review of Systems: All systems reviewed & are unremarkable except as noted in HPI & below Patient denies weight gain, edema +Nausea occasionally Physical Exam Physical Exam: General: patient very hard of hearing, anxious in appearance, AA&O x 3, answers questions appropriately and follows commands Skin: warm, dry, intact, gold-blue skin discoloration noted on face and bilateral LEs from minocycline use HEENT: NC/AT, PERRL, EOMI, anicteric sclera, conjunctiva without injection, external ear normal to inspection and nontender, nares patent, dry mucus membranes, poor dentition, no oropharyngeal lesions, neck supple, trachea midline, no LAD, no thyromegaly, no JVD Heart: +S1/S2, irregularly irregular, no m/r/g Lungs: equal air entry bilaterally, no rales/rhonchi/wheezes, patient tachypneic Abd: +BS, soft, NT/ND, no masses/organomegaly/ascites Ext: warm, 2+ pulses in UE/LE bilaterally, no clubbing/cyanosis, trace pitting edema of bilateral LEs Neuro: nonfocal, patient AA&O x 4, speech intact, no facial droop, moving all extremities on command with equal strength 5/5 Results & Data Results & Data ([facility]) Vital Signs (Past 12 Hours) Vital Signs Temp Pulse Resp BP Pulse Ox 01/25/20 22:00 77 24 131/82 100 01/25/20 21:30 82 19 143/64 H 100 01/25/20 21:01 83 29 H 116/55 L 100 01/25/20 20:31 68 21 114/52 L 100 01/25/20 20:01 79 17 122/79 100 01/25/20 19:30 78 25 H 107/69 96 01/25/20 19:16 37.0 C 89 20 113/43 L 100 Laboratory Results Lab Results 01/25/20 01/25/20 01/25/20 Range/Units 20:00 20:00 20:00 WBC 6.21 (4.8-10.8) K/uL RBC 3.85 L (4.2-5.4) M/uL Hgb 12.9 (12.0-16.0) g/dL Hct 38.0 (37-47) % MCV 98.7 (80-100) fL MCH 33.5 (25-34) pg MCHC 33.9 (32-36) g/dL RDW Std Deviation 49.6 H (36.4-46.3) fL RDW Coeff of [place] 13.7 (11.5-14.5) % Plt Count 169 (130-400) K/uL MPV 11.0 H (7.4-10.4) fL Immature Gran % (Auto) 0.2 % Neut % (Auto) 54.5 % Lymph % (Auto) 31.6 % [place] % (Auto) 12.6 % Eos % (Auto) 0.6 % Baso % (Auto) 0.5 % Immature Gran # (Auto) 0.01 (0.00-0.02) K/uL Neut # (Auto) 3.39 (1.4-6.5) K/uL Lymph # (Auto) 1.96 (1.2-3.4) K/uL [place] # (Auto) 0.78 H (0.11-0.59) K/uL Eos # (Auto) 0.04 (0-0.5) K/uL Baso # (Auto) 0.03 (0-0.2) K/uL Absolute Nucleated RBC 0.03 H (0-0) K/uL Nucleated RBC % (auto) 0.4 % PT 17.1 H (9.0-12.0) Seconds INR 1.7 H (0.9-1.1) APTT 37.6 H (21.0-31.0) Seconds PTT Ratio 1.3 Sodium 136 (136-145) mmol/L Potassium 4.4 (3.5-5.1) mmol/L Chloride 106 (98-107) mmol/L Carbon Dioxide 24 (21-32) mmol/L Anion Gap 7.0 (3-11) BUN 61 H (7-18) mg/dl Creatinine 1.67 H (0.6-1.2) mg/dl Est Cr Clr Drug Dosing Not Reportable Est GFR ( Amer) 35.1 Est GFR (Non-Af Amer) 30.3 BUN/Creatinine Ratio 36.4 H (10-20) Glucose 81 (70-99) mg/dl POC Glucose (70-99) mg/dl Calcium 8.9 (8.5-10.1) mg/dl Total Bilirubin 0.6 (0.2-1) mg/dl AST 32 (15-37) U/L ALT 45 (12-78) U/L Alkaline Phosphatase 148 H (45-117) U/L Troponin I < 0.015 (0-0.045) ng/ml Total Protein 6.9 (6.4-8.2) gm/dl Albumin 3.2 L (3.4-5.0) gm/dl Globulin 3.6 (2.5-4.0) gm/dl Albumin/Globulin Ratio 0.9 (0.9-2) Lipase 428 H (73-393) U/L Digoxin (0.8-2.0) ng/ml 01/25/20 01/25/20 Range/Units 20:00 22:20 WBC (4.8-10.8) K/uL RBC (4.2-5.4) M/uL Hgb (12.0-16.0) g/dL Hct (37-47) % MCV (80-100) fL MCH (25-34) pg MCHC (32-36) g/dL RDW Std Deviation (36.4-46.3) fL RDW Coeff of [place] (11.5-14.5) % Plt Count (130-400) K/uL MPV (7.4-10.4) fL Immature Gran % (Auto) % Neut % (Auto) % Lymph % (Auto) % [place] % (Auto) % Eos % (Auto) % Baso % (Auto) % Immature Gran # (Auto) (0.00-0.02) K/uL Neut # (Auto) (1.4-6.5) K/uL Lymph # (Auto) (1.2-3.4) K/uL [place] # (Auto) (0.11-0.59) K/uL Eos # (Auto) (0-0.5) K/uL Baso # (Auto) (0-0.2) K/uL Absolute Nucleated RBC (0-0) K/uL Nucleated RBC % (auto) % PT (9.0-12.0) Seconds INR (0.9-1.1) APTT (21.0-31.0) Seconds PTT Ratio Sodium (136-145) mmol/L Potassium (3.5-5.1) mmol/L Chloride (98-107) mmol/L Carbon Dioxide (21-32) mmol/L Anion Gap (3-11) BUN (7-18) mg/dl Creatinine (0.6-1.2) mg/dl Est Cr Clr Drug Dosing Est GFR ( Amer) Est GFR (Non-Af Amer) BUN/Creatinine Ratio (10-20) Glucose (70-99) mg/dl POC Glucose 101 H (70-99) mg/dl Calcium (8.5-10.1) mg/dl Total Bilirubin (0.2-1) mg/dl AST (15-37) U/L ALT (12-78) U/L Alkaline Phosphatase (45-117) U/L Troponin I (0-0.045) ng/ml Total Protein (6.4-8.2) gm/dl Albumin (3.4-5.0) gm/dl Globulin (2.5-4.0) gm/dl Albumin/Globulin Ratio (0.9-2) Lipase (73-393) U/L Digoxin 0.6 L (0.8-2.0) ng/ml Diagnostic Findings XR chest 1V portable CLINICAL HISTORY: Chest Pain dyspnea COMPARISON STUDY: 12/16/2019 FINDINGS: The bones soft tissues and hemidiaphragms are normal. The cardiomediastinal silhouette is normal. The lungs are clear. The pulmonary vasculature is normal. IMPRESSION: Negative chest. ACT 112: Negative or not required by law. The above report was generated using voice recognition software. It may contain grammatical, syntax or spelling errors. Electronically signed by: Ministerio Bowen M.D. 01/25/2020 8:09 PM Dictated: 01/25/202008 ECG Additional Comments: EKG shows atrial fibrillation at 88 bpm, left axis deviation, QRS=80, IUz=432, suspected old inferior infarct Code Status & VTE Plan Code Status Full VTE Prophylaxis Plan VTE Prophylaxis will be ordered: Yes PG Care Time/CCT Total # of Minutes Spent Total Time Spent with Patient: Total time spent is greater than 50% in coordination of care (as documented) at patient's floor/unit and/or counseling patient: Coding Level of Care Code 98422 OBS Care - Level 3 Diagnoses Chest pain R07.9 Chest pain type: unspecified Atrial fibrillation I48.91 Atrial fibrillation type: unspecified Hypothyroidism E03.9 Hypothyroidism type: acquired Chronic systolic CHF (congestive heart failure) I50.22 Chronic, continuous use of opioids F11.90 (1) Atrial fibrillation Atrial fibrillation type: unspecified Qualified Code(s): I48.91 - Unspecified atrial fibrillation (2) Chest pain Chest pain type: unspecified Qualified Code(s): R07.9 - Chest pain, unspecified (3) Hypothyroidism Hypothyroidism type: acquired Qualified Code(s): E03.9 - Hypothyroidism, unspecified
[2020-01-25] MEDS ORDERED: GLUCAGON FOR INJ 1 MG VIAL SQ PRN (23:53)
[2020-01-25] MEDS ORDERED: ANUSOL SUPP 1 EA PR PRN (23:53)
[2020-01-25] MEDS ORDERED: DEXTROSE 50% 50 ML SYRINGE IV PRN (23:53)
[2020-01-25] MEDS ORDERED: D5W AND NSS 1,000 ML IV SCH (23:53)
[2020-01-25] MEDS ORDERED: GLUCOSE 40% GEL 15 GM TUBE PO PRN (23:53)
[2020-01-25] MEDS ORDERED: CARBOHYDRATES FOR HYPOGLYCEMIA PO PRN (23:53)
[2020-01-25] MEDS ORDERED: OXYCODONE/ACETAMINOPHEN 5mg/325mg TAB PO PRN (23:53)
[2020-01-25] MEDS ORDERED: GLUCOSE 10 TABS/TUBE PO PRN (23:53)
[2020-01-26 00:17] LABS: Magnesium 2.5 mg/dl (1.8-2.4); Phosphorus 3.7 mg/dl (2.5-4.9)
[2020-01-26] MEDS ORDERED: LEVOTHYROXINE SODIUM 112 MCG TABLET PO SCH (06:30)
[2020-01-26] MEDS ORDERED: MINOCYCLINE~ORDER AWAITING ACTION SCH (08:00)
[2020-01-26 08:24] LABS: Basophils # (auto) 0.02 K/uL (0-0.2); Basophils % (auto) 0.4 %; Eosinophils # (auto) 0.04 K/uL (0-0.5); Eosinophils % (auto) 0.7 %; Hematocrit (blood only) 39.7 % (37-47); Hemoglobin 13.7 g/dL (12.0-16.0); Immature Granulocytes # (auto) 0.01 K/uL (0.00-0.02); Immature Granulocytes % (auto) 0.2 %; Lymphocytes # (auto) 1.27 K/uL (1.2-3.4); Lymphocytes % (auto) 23.4 %; Mean Corpuscular Hemoglobin 34.3 pg (25-34); Mean Corpuscular Hgb Conc 34.5 g/dL (32-36); Mean Corpuscular Volume 99.3 fL (80-100); Mean Platelet Volume 11.5 fL (7.4-10.4); Monocytes # (auto) 0.65 K/uL (0.11-0.59); Neutrophils # (auto) 3.44 K/uL (1.4-6.5); Neutrophils % (auto) 63.3 %; Platelet Count 174 K/uL (130-400); RDW Coefficient of Variation 13.7 % (11.5-14.5); RDW Standard Deviation 49.8 fL (36.4-46.3); White Blood Count 5.43 K/uL (4.8-10.8)
[2020-01-26 08:52] LABS: Alanine Aminotransferase 47 U/L (12-78); Albumin Level 3.6 gm/dl (3.4-5.0); Aspartate Aminotransferase 32 U/L (15-37); BUN Creatinine Ratio 38.5 (10-20); Bilirubin Direct 0.2 mg/dl (0-0.2); Blood Urea Nitrogen 45 mg/dl (7-18); Calcium 8.8 mg/dl (8.5-10.1); Carbon Dioxide 23 mmol/L (21-32); Chloride 107 mmol/L (98-107); Creatinine Clr Calc Pharmacy 53.5 ml/min; Est GFR (African American) 54.5; Glucose 79 mg/dl (70-99); Potassium 4.1 mmol/L (3.5-5.1); Sodium 137 mmol/L (136-145)
[2020-01-26] MEDS ORDERED: carvediloL 25 MG TAB PO SCH ×2 (09:00→21:00)
[2020-01-26] MEDS ORDERED: dilTIAZem HCL 180 MG CAPCR PO SCH (09:00)
[2020-01-26 09:02] LABS: Alkaline Phosphatase 138 U/L (45-117); Bilirubin,Total 0.9 mg/dl (0.2-1); Thyroid Stimulating Hormone 0.064 uIu/ml (0.300-4.500); Total Protein 7.4 gm/dl (6.4-8.2); Troponin I < 0.015 ng/ml (0-0.045)
--- NOTE | 2020-01-26 09:06 | Cardiology Consultation ---
Date of Consultation January 26, 2020 Assessment & Plan (1) Chest pain: Her chest discomfort is somewhat atypical and given her history of normal coronary arteries at catheterization (by her recollection) as well as no evidence of ischemia based on electrocardiography or enzyme abnormalities I w ould not pursue further evaluation and unless something changes. I would wait for the third enzymes, which are due around midday, and if negative would assume that this is noncardiac. (2) Cardiomyopathy: She has a longstanding cardiomyopathy which may be rate related, with medical therapy including titration of carvedilol and lisinopril her ejection fraction has clearly improved although I do not think it is normal today. I had tried to place her on Entresto but she did not tolerate it in June, she is tolerating her current dose of lisinopril. Her blood pressure is somewhat elevated and heart rate is also a little bit high, I am therefore going to increase her carvedilol to 37.5 mg twice a day. She is in agreement with this. (3) Atrial fibrillation: She has permanent atrial fibrillation and our strategy is rate control and anticoagulation. I am going to improve her rate control little bit by increasing carvedilol, we need to continue anticoagulation. (4) Chronic anticoagulation: She is currently taking Xarelto and seems to be doing well on it, I have recommended she continue it. History of Present Illness Attending Physician: Brunilda Comer MD History of Present Illness This is a 74-year-old woman who received most of her cardiac care elsewhere and we started seeing her in November 2018 when she presented to [facility]. Some of her history is sketchy. She has a long history of atrial fibrillation and is on anticoagulation, she evidently had a cardiomyopathy based on her description with resolution or at least near normalization of her ejection fraction on a combination of the EDDA inhibition and carvedilol. She evidently had a catheterization perhaps around 2009 although she does not remember exactly and I do not have records with no coronary artery disease per her recollection. She presented with strokelike symptoms on November 30, 2018 but did not have findings of a stroke. She was however found to be in rapid atrial fibrillation and echocardiography December 01, 2018 showed severe left ventricular dysfunction with ejection fraction of 25 to 30%. Her carvedilol dose was only 6.25 mg twice a day, she had low normal ejection fraction in November 2017. She was started on digoxin, diltiazem and an increased dose of carvedilol for rate control. She was discharged on Xarelto. She was seen in follow-up March 03, 2019 and was feeling better and was tolerating her medications well at that time. I had her get another echocardiogram which was done on March 15, 2019 and her ejection fraction was once again felt to be 25 to 30%, 3 months after going up on the medications. I switched her from lisinopril to Entresto in June 2019, although she is now back on lisinopril. She was to follow-up with an echocardiogram and visit but have not seen her since June 2019. She presents to the emergency room with chest discomfort starting on January 25, 2020. In the emergency room she described the discomfort as a pressure and heaviness on the left side of her chest, lasting 5 minutes and occurring intermittently. She complains of shortness of breath with the discomfort. Initial evaluation in the emergency room demonstrated atrial fibrillation on electrocardiography (which is permanent), rate was reasonably well controlled. The chest x-ray was unremarkable and troponin was negative. She was admitted. At the time of my evaluation this morning she is feeling better, she is having no further chest discomfort, does not feel her arrhythmia and seems to be in good spirits. Allergies Allergy/AdvReac Type Severity Reaction Status Date / Time codeine AdvReac Intermediate SEVERE GI Verified 01/25/20 20:55 SYMPTOMS Home Medications Home Medications Medication Instructions Recorded Confirmed Type Xarelto 20 mg PO DAILY@1600 11/30/18 01/25/20 History furosemide 40 mg PO QAM 11/30/18 01/25/20 History levothyroxine 112 mcg PO QAM 11/30/18 01/26/20 History multivitamin [Multiple Vitamins] 1 tab PO QAM 11/30/18 01/25/20 History carvedilol 25 mg tablet 25 mg PO BID #60 tab 07/07/19 01/25/20 Rx digoxin 125 mcg (0.125 mg) tablet 125 mcg PO DAILY@1600 07/07/19 01/25/20 History diltiazem HCl [Cartia XT] 180 mg PO QAM 12/11/19 01/25/20 History lisinopril 40 mg PO QAM 12/11/19 01/25/20 History oxycodone-acetaminophen 1 - 1.5 tab PO BID PRN 04/19/20 06/03/20 History zolpidem 10 mg PO HS PRN 12/11/19 01/25/20 History ergocalciferol (vitamin D2) 50,000 unit PO MOWEFR 12/16/19 01/25/20 History [Vitamin D2] prednisone 20 mg PO DAILY 5 Days #5 tab 01/23/20 01/25/20 Rx minocycline 100 mg PO BID 01/25/20 01/25/20 History Patient History Social History Preferred Language: Belarusian Communication Ability: Effective Human Resource Adviser Required: No Beliefs That Will Affect Care: None Current Living Situation: Family Current Living Situation Comment: [employer] current occupational status: retired and disabled other: Disabled in her 50s. 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 HEENT: Unremarkable although she has some facial discoloration which apparently is drug related. Neck: No jugular venous distention, carotid pulses are irregular but otherwise normal and equal bilaterally without bruits. Pulmonary: Clear to auscultation bilaterally. Cardiac: Irregular rhythm with no murmur, gallop or rub. Abdomen: Soft, nontender with normal bowel sounds. Extremities: No edema. Distal pulses intact. Neurologic: No focal findings. Gait is steady. Skin: No rash, ecchymoses or petechiae. She has discoloration of her skin which apparently is drug related. Results & Data ([facility]) Vital Signs (Past 12 Hours) Vital Signs Temp Pulse Pulse Resp BP BP Pulse Ox 01/26/20 08:02 36.7 C 78 18 142/82 H 100 01/25/20 23:53 37.5 C 80 77 20 126/74 96 01/25/20 23:14 85 20 125/68 100 01/25/20 22:00 77 24 131/82 100 01/25/20 21:30 82 19 143/64 H 100 Laboratory Results Cardiac Enzymes 01/25/20 01/26/20 Range/Units 20:00 07:50 AST 32 32 (15-37) U/L Troponin I < 0.015 < 0.015 (0-0.045) ng/ml Coagulation 01/25/20 Range/Units 20:00 PT 17.1 H (9.0-12.0) Seconds APTT 37.6 H (21.0-31.0) Seconds CBC 01/25/20 01/26/20 Range/Units 20:00 07:50 WBC 6.21 5.43 (4.8-10.8) K/uL RBC 3.85 L 4.00 L (4.2-5.4) M/uL Hgb 12.9 13.7 (12.0-16.0) g/dL Hct 38.0 39.7 (37-47) % Plt Count 169 174 (130-400) K/uL Neut # (Auto) 3.39 3.44 (1.4-6.5) K/uL Lymph # (Auto) 1.96 1.27 (1.2-3.4) K/uL [place] # (Auto) 0.78 H 0.65 H (0.11-0.59) K/uL Eos # (Auto) 0.04 0.04 (0-0.5) K/uL Baso # (Auto) 0.03 0.02 (0-0.2) K/uL Comprehensive Metabolic Panel 01/25/20 01/26/20 Range/Units 20:00 07:50 Sodium 136 137 (136-145) mmol/L Potassium 4.4 4.1 (3.5-5.1) mmol/L Chloride 106 107 (98-107) mmol/L Carbon Dioxide 24 23 (21-32) mmol/L BUN 61 H 45 H (7-18) mg/dl Creatinine 1.67 H 1.16 D (0.6-1.2) mg/dl Glucose 81 79 (70-99) mg/dl Calcium 8.9 8.8 (8.5-10.1) mg/dl Direct Bilirubin 0.2 (0-0.2) mg/dl AST 32 32 (15-37) U/L ALT 45 47 (12-78) U/L Alkaline Phosphatase 148 H 138 H (45-117) U/L Total Protein 6.9 7.4 (6.4-8.2) gm/dl Albumin 3.2 L 3.6 (3.4-5.0) gm/dl Intake and Output 01/25/20 01/26/20 01/26/20 22:59 06:59 14:59 Intake Total 250 / 250 394.667 / 394.667 Balance 250 / 250 394.667 / 394.667 Intake: IV 250 / 250 394.667 / 394.667 D5w and Nss 1,000 ml @ 80 mls/ 394.667 / 394.667 hr IV .[id number] JENNY Rx#:[id number] Nss 250 ml @ 999 mls/hr IV . 250 / 250 Q16M ONE Rx#:[id number] Other: Weight 100.8 kg Diagnostic Findings Her electrocardiogram from January 25, 2020 at 1928 when she presented shows atrial fibrillation with a rate of 88 bpm, left axis deviation and low voltage with some poor R wave progression. No acute change. Telemetry shows atrial fibrillation with a reasonably well-controlled heart rate, perhaps a little bit fast, without bradycardia Echocardiography based on my preliminary review shows an ejection fraction which is clearly improved compared to a year ago on side to side comparison. I would estimate it to be in the 40s. PG Care Time/CCT Total # of Minutes Spent Total Time Spent with Patient: Total time spent is greater than 50% in coordination of care (as documented) at patient's floor/unit and/or counseling patient: Coding Level of Care Code 38919 Initial Inpt Care Lvl 3 Diagnoses Chest pain R07.9 Chest pain type: unspecified Cardiomyopathy I42.9 Atrial fibrillation I48.91 Atrial fibrillation type: unspecified Chronic anticoagulation Z79.01 (1) Chest pain Chest pain type: unspecified Qualified Code(s): R07.9 - Chest pain, unspecified (2) Atrial fibrillation Atrial fibrillation type: unspecified Qualified Code(s): I48.91 - Unspecified atrial fibrillation
[2020-01-26] MEDS ORDERED: carvediloL 12.5 MG TAB PO ONE (11:45)
[2020-01-26] MEDS ORDERED: ACETAMINOPHEN SUSP 325 MG/10.15 ML UDC PO PRN (11:46)
--- NOTE | 2020-01-26 12:11 | Discharge Summary ---
Date of Service January 26, 2020 Admission HPI Per Admitting Provider Eva Ford is a 74yo C female with history of AF on anticoagulation, hypothyroidism, CHF presenting from home with complaint of chest discomfort. She reports her symptoms began this afternoon after lunch, left sided chest pressure, occurring intermittently and resolving on their own. Also with complaint of shortness of breath and needing to take rapid/shallow breaths. She denies fevers/chills/abdominal pain/nausea/vomiting/diarrhea. She does admit to slight dysuria. Patient was seen in the ER on 01/23/20 with complaint of severe left leg pain, 10/10 radiating from her back. She had a CT of her lumbar spine which demonstrated spinal stenosis. She was treated with IV morphine and steroids with improvement. She was discharged home with Prednisone and instructed to followup with her PCP. No complaints of back pain today. She was unable to tolerate the Prednisone due to nausea. ER Course: ASA, Ativan, Nitro, NSS Principal Diagnosis cp Discharge Exam Constitutional WD/WN, vitals as above Eyes PERRL, conjunctivae normal, anicteric sclerae ENMT external ear and nose normal, oropharynx normal Ears: + hearing impairment (MARY'S IGLOO) Respiratory normal respiratory effort, lungs clear to auscultation Cardiovascular Rate/Rhythm: + irregularly irregular Gastrointestinal (Abdomen) normal bowel sounds, soft, nontender, no hepatosplenomegaly Skin blue gold discoloratoin 2/2 minocycline Psychiatric Orientation: alert and oriented x 3 Affect: + anxious affect Discharge Data Allergies Allergy/AdvReac Type Severity Reaction Status Date / Time codeine AdvReac Intermediate SEVERE GI Verified 01/25/20 20:55 SYMPTOMS Consultations 01/26/20 07:48 Consult Cardiology Routine Hospital Course (1) Chest pain: 74 y/o F with PMH AFib on anticoagulation, hypothyroidism, CHF presenting from home with complaint of chest discomfort admitted for chest pain r/o. Atypical Chest Pain-resolved -In ED, pt was given ASA and Nitro with improvement -EKG with AFib, evidence of old ischemic disease -Troponin x 3 negative -h/o LHC with normal coronaries. Atrial fibrillation -Rate controlled, anticoagulated on Xarelto -Continue Digoxin, level was 0.5. Can adjust dose as outpt -Continue Diltiazem, Continue Carvedilol (dose changes as below) Hypothyroidism -Chronic. TSH .064 low. Can adjust dose as outpt -Continued Synthroid Chronic systolic CHF/Cardiomyopathy -pt follows with Dr. Li Cardiology -Echocardiogram done this admission: mild concentric LVH. LV systolic fxn is low normal. EG 50-55% -longstanding cardiomyopathy which may be rate related. In past, with medical therapy including titration of carvedilol and lisinopril her EF had improved. Cardiology had tried to place her on Entresto but she did not tolerate it in June, she is tolerating her current dose of lisinopril. Cardiology increased her carvedilol to 37.5 mg BID given her somewhat elevated BP and HR -Continue Carvedilol as above. Cont Lisinopril as before Chronic, continuous use of opioids -Chronic. Patient reports pain is well controlled -Continue Percocet PRN at home dose At time of d/c, pt had no other acute concerns or complaints. Total Time Total Time Spent Total Time Spent (In Minutes): 30 Discharge Plan Discharge Items Patient Disposition: Home - Self-Care Reason For Visit: CHEST PAIN Discharge Diagnosis: chest pain Activity: Per Instructions section Non-emergency contact: Primary Care Provider Call non-emergency contact if: you have any medication questions and your symptoms worsen Follow-up/Referrals: Qasim Rangel MD [Primary Care Provider] - 01/27/20 12:40 pm (You have a follow up appt with Dr. Rangel on ThursdayJanuary 26 at 1240. Please arrive 15 minutes prior to your appt time. Please also make sure to wear a mask, and if this appt does not fit your schedule please call the office and reschedule. ) Diet: Heart Healthy Addtl Attending Provider Instructions: You were admitted with concerns of chest pain. We did a work up looking at labs and EKG and found that this was likely not cardiac in origin as everything came back normal. Please follow the below instructions on discharge: -we consulted cardiology while you were in hospital to help manage your CHF/Cardiomyopathy. They recommended increasing your dose of carvedilol to 37.5 mg twice a day. All other meds are the same -please follow up with your PCP within one week of discharge for normal hospital f/u. This will be arranged for you Pending Studies at Discharge: No Stand-Alone Forms: [employer], Smoking Cessation Medications and DC Order Prescriptions: New carvedilol 25 mg tablet 37.5 mg PO BID Qty: 60 RF: 0 Continued digoxin 125 mcg (0.125 mg) tablet 125 mcg PO DAILY@1600 RF: 0 multivitamin [Multiple Vitamins] Tablet 1 tab PO QAM RF: 0 furosemide 40 mg tablet 40 mg PO QAM RF: 0 levothyroxine 112 mcg tablet 112 mcg PO QAM RF: 0 Xarelto 20 mg tablet 20 mg PO DAILY@1600 RF: 0 diltiazem HCl [Cartia XT] 180 mg capsule,extended release 24hr 180 mg PO QAM RF: 0 oxycodone-acetaminophen 5-325 mg tablet 1 - 1.5 tab PO BID PRN (Reason: Pain) RF: 0 zolpidem 10 mg tablet 10 mg PO HS PRN (Reason: Sleep) RF: 0 lisinopril 40 mg tablet 40 mg PO QAM RF: 0 ergocalciferol (vitamin D2) [Vitamin D2] 1,250 mcg (50,000 unit) Capsule 50,000 unit PO MOWEFR RF: 0 prednisone 20 mg tablet 20 mg PO DAILY 5 Days Qty: 5 RF: 0 minocycline 100 mg capsule 100 mg PO BID RF: 0 Discontinued carvedilol 25 mg tablet 25 mg PO BID Qty: 60 RF: 2 Discharge Orders: Discharge Order (Routine); Ordered 01/26/20 Ordered By: Rodrigo Galeana Admission Data Admit Date/Time: 01/25/20 22:28 Attending Provider: Brunilda Comer Admit Provider: Nano Herman Primary Care Provider: Qasim Rangel Other Providers: Nano Herman ; Michael Li Other Interventions: Discharge Summary Assessment (RN) Last Done: 01/26/20 14:14 DC Date/Time DO NOT enter until pt leaves facility: 01/26/20 14:40 Supervising Physician Co-Signing Physician Notes Resident Physician Supervision Note: I independently interviewed and examined the patient and verified the love history and physical, reviewed labs and image studies, discussed the case with the resident Dr. Galeana and agree with the findings and care plan. Resident Activity Tracking Resident Involvement: Resident Care Provided Care Provided: Adult Hospital Medicine
--- NOTE | 2020-01-26 12:20 | XCELERA ---
[id number]\[id number]
[2020-01-26] MEDS ORDERED: ONDANSETRON 4 MG OD TAB PO STA (13:35)
[2020-01-26] MEDS ORDERED: ONDANSETRON 4 MG OD TAB ONE (13:41)
[2020-01-26] MEDS ORDERED: DIGOXIN 0.125 MG TAB PO SCH (16:00)
[2020-01-26] MEDS ORDERED: RIVAROXABAN 20 MG TAB PO SCH (16:00)
--- NOTE | 2020-01-26 17:07 | Electrocardiogram Report ---
Test Reason : Blood Pressure : / mmHG Vent. Rate : 088 BPM Atrial Rate : 053 BPM P-R Int : 000 ms QRS Dur : 080 ms QT Int : 338 ms P-R-T Axes : 000 -50 158 degrees QTc Int : 408 ms Poor data quality, interpretation may be adversely affected Atrial fibrillation Left axis deviation Low voltage QRS Possible Lateral infarct , age undetermined Inferior infarct , age undetermined Abnormal ECG When compared with ECG of 16-DEC-2019 08:22, Inferior infarct is now Present Nonspecific T wave abnormality, improved in Lateral leads Confirmed by Michael Li ([id number]) on 01/26/2020 5:06:59 PM Referred By: REFERRED SELF Confirmed By:Michael Li
[2020-01-26] MEDS ORDERED: ZOLPIDEM TARTRATE 10 MG TAB PO PRN (21:00)
== END 2020-01-26 14:40 | disposition home or self-care (01) ==
LOC: ED 19:10 → 2W 19:10 → SUATTDRO 22:28 → 2W 23:14

== ENCOUNTER 2020-04-22 16:49 | Observation (INO) ==
[2020-04-22] MEDS ORDERED: ONDANSETRON INJ 2 MG/ML 2 ML VIAL IV STA (18:14)
[2020-04-22] MEDS ORDERED: LORazepam 0.5 MG/1 ML VIAL IV STA (18:14)
[2020-04-22] MEDS ORDERED: MoRPHine SULFATE 4 MG/ML 1 ML CARP\\VIAL IV STA (18:14)
[2020-04-22] MEDS ORDERED: SODIUM CHLORIDE 0.9% 500 ML IV SCH (18:15)
[2020-04-22] MEDS ORDERED: FAMOTIDINE 20MG/5ML IV PUSH IV STA (18:23)
--- NOTE | 2020-04-22 18:23 | Emergency Department Note ---
Impression & Plan Hypotension, Low back pain, Ileus, Nausea, Acute dehydration ED Provider Note NAME: GARFIELD MCCORMICK AGE: 74 SEX: F : 1945 ARRIVES VIA: Walk-In INFORMANT: [Patient] ED PROVIDER(S): [Paco Hayes MD] CHIEF COMPLAINT: Back pain, nausea, inability to eat. HISTORY OF PRESENT ILLNESS: The patient is a 74-year-old female who presents to the ED with several complaints. I actually saw her yesterday for anxiety and hyperventilation. Her laboratory work-up was unremarkable. Her chest x-ray was clear and her urine showed no infection. She felt better after being medicated and receiving hydration and was discharged home. The patient states that this morning, she felt okay. As the day went on, she became very nauseated and started to have a lot of lower back pain. She has chronic low back pain. She attempted to take some of her pain medications but was too nauseated to do so. She felt that her stomach was quite upset. She was concerned and felt more bloated than baseline. She presents back to the ED for reevaluation. She felt she may have had a fever but did not register a high temperature. She is not short of breath, there is no cough. She denies any urinary complaints. She complains right now of lower back pain. This is a chronic issue for her. There has been no fall or trauma. REVIEW OF SYSTEMS: See HPI for pertinent positives and negatives. A total of ten systems were reviewed and were otherwise negative. PMHx/PSHx: See Below SOCIAL HISTORY: See Below. PHYSICAL EXAM: GENERAL: Patient is in mild distress, seems anxious. HEENT: No acute trauma, normocephalic atraumatic, mucous membranes moist, no nasal congestion, no scleral icterus. NECK: No stridor, no adenopathy, no meningismus, trachea is midline. LUNGS: Clear to auscultation bilaterally, no wheeze, no rhonchi, breath sounds equal. HEART: Without murmurs gallops or rubs, regular rate and rhythm. ABDOMEN: Soft, very mildly diffusely tender, there is some mild abdominal distention, bowel sounds positive, no hernias, no peritonitis. EXTREMITIES: No cyanosis or edema, full range of motion of all the joints without pain or difficulty, no signs for acute trauma. NEUROLOGIC: Oriented x 3, no acute motor or sensory deficits, no focal weakness. SKIN: No rash, no jaundice, no diaphoresis. Back: There is no open skin lesion or ulcer. There is no focal area of discomfort. No contusion. Buttock area does not show any skin breakdown DIFFERENTIAL DIAGNOSIS: Infection, dehydration, metabolic abnormality, anxiety, bowel obstruction, dehydration, gastritis, medication reaction, hypo/hyperglycemia, electrolyte disturbance, anemia, hypoxia, cardiac sources, intracerebral event, toxicologic, neurologic, as well as other pathologies. EMERGENCY DEPARTMENT COURSE/PROCEDURES: ECG: Indication was abdominal/chest pain. The ECG shows atrial fibrillation with PVCs. The rate is at 99. There is a poor baseline and some nonspecific ST change diffusely. There is no ST elevation. The QTc is 459. Compared to an ECG from 21 April 2020, there is no significant change. Continuous Cardiac Monitoring: An order was placed for continuous cardiac monitoring. The monitor shows a rate of 89 with atrial fibrillation with some PVCs.. MEDICAL DECISION MAKING: There is no leukocytosis or concerning anemia. There is a normal platelet count. Creatinine is slightly elevated when compared to yesterday at 1.26, this finding is consistent with some dehydration. There were a few subtle liver enzyme elevations which have been documented before. No evidence for pancreatitis. ECG shows atrial fibrillation, no acute ischemic change. Cardiac enzyme testing x1 is not consistent with acute cardiac injury. Abdominal and pelvis CT shows evidence for a potential ileus, no bowel obstruction, no acute surgical process by CT scan. The patient received IV Pepcid, IV Ativan, IV morphine, IV Zofran and IV saline, she feels improved, her blood pressure is improved. Of note, she was initially slightly hypotensive upon arrival. The patient has been here twice now in 24 hours. She is nauseated. She is not eating or drinking, she is not taking her medications. I do not think she can be discharged home. She requires hydration, her medications may need some adjustment. She may also benefit from a psychiatric consult as she does seem quite anxious. I spoke to the patient and case management. The on-call hospitalist was consulted. Past Med/Surg History Medical History Ambulatory dysfunction Atrial fibrillation Atrial fibrillation with RVR CHF (congestive heart failure) Chronic anticoagulation Chronic fatigue syndrome Chronic, continuous use of opioids History of uterine fibroid Hyponatremia Hypothyroidism Multinodular goiter Weakness Surgical History H/O breast augmentation S/P tooth extraction Family History Mother , age 83 with lung cancer and COPD COPD (chronic obstructive pulmonary disease) Lung cancer Father , in 70s of bladder cancer and COPD COPD (chronic obstructive pulmonary disease) Bladder cancer Other Hypertension Social History Smoking Status: Never smoker Second Hand Exposure: No; Hx Alcohol Use: No Hx Substance Use: No Preferred Language: Bol[place]ian Communication Ability: Effective 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 Feels Safe at Home: Yes Allergies Allergies Allergy/AdvReac Type Severity Reaction Status Date / Time codeine AdvReac Intermediate SEVERE GI Verified 04/22/20 19:33 SYMPTOMS Home Meds Home Medications Medication Instructions Recorded Confirmed Xarelto 20 mg PO DAILY@1600 11/30/18 04/22/20 furosemide 40 mg PO QAM 11/30/18 04/22/20 levothyroxine 112 mcg PO QAM 11/30/18 04/22/20 multivitamin [Multiple Vitamins] 6 tab PO QAM 11/30/18 04/22/20 digoxin 125 mcg (0.125 mg) tablet 125 mcg PO DAILY@1600 07/07/19 04/22/20 diltiazem HCl [Cartia XT] 180 mg PO QAM 12/11/19 04/22/20 lisinopril 40 mg PO QAM 12/11/19 04/22/20 oxycodone-acetaminophen 1 - 1.5 tab PO BID PRN 12/11/19 04/22/20 zolpidem 10 mg PO HS 12/11/19 04/22/20 ergocalciferol (vitamin D2) 50,000 unit PO MOWEFR 12/16/19 04/22/20 [Vitamin D2] minocycline 200 mg PO BID 01/25/20 04/22/20 cephalexin 500 mg PO QID 04/21/20 04/22/20 gabapentin 100 mg PO TID 04/21/20 04/22/20 prednisone 5 mg PO QAM 04/21/20 04/22/20 benzonatate 100 mg PO TID 04/22/20 04/22/20 carvedilol 25 mg PO BID 04/22/20 04/22/20 gabapentin 300 mg PO TID 04/22/20 04/22/20 pantoprazole 40 mg PO DAILY 04/22/20 04/22/20 Results & Data (ED) Vital Signs Vital Signs - 24 hr 04/22/20 17:03 04/22/20 19:11 04/22/20 19:17 Temperature 36.8 C Temperature Source Oral Pulse Rate 82 84 88 Pulse Rate [Right Finger] 92 H Pulse Rate from SpO2 Sensor 80 Respiratory Rate 18 16 20 Respiratory Effort / Characteristics Non-Labored Respiratory Depth Normal Blood Pressure 97/58 L 114/75 Blood Pressure [Right Arm] 114/75 Blood Pressure Mean 71 87 Blood Pressure Mean [Right Arm] 88 Pulse Oximetry 100 100 100 Oxygen Delivery Method Room Air Room Air Sepsis Recent Fever Within 48 Hours No Sepsis New/Unexplained Change in Mental Status No Sepsis Action Taken by Nursing No Action Required 04/22/20 19:57 04/22/20 20:00 04/22/20 20:02 Temperature Temperature Source Pulse Rate 87 89 97 H Pulse Rate [Right Finger] Pulse Rate from SpO2 Sensor 94 H 89 90 Respiratory Rate 19 21 20 Respiratory Effort / Characteristics Respiratory Depth Blood Pressure 103/55 L Blood Pressure [Right Arm] Blood Pressure Mean 76 Blood Pressure Mean [Right Arm] Pulse Oximetry 100 100 100 Oxygen Delivery Method Sepsis Recent Fever Within 48 Hours Sepsis New/Unexplained Change in Mental Status Sepsis Action Taken by Nursing 04/22/20 20:10 04/22/20 20:20 04/22/20 20:30 Temperature Temperature Source Pulse Rate 115 H 92 H 90 Pulse Rate [Right Finger] Pulse Rate from SpO2 Sensor 95 H 89 Respiratory Rate 20 12 20 Respiratory Effort / Characteristics Respiratory Depth Blood Pressure Blood Pressure [Right Arm] Blood Pressure Mean Blood Pressure Mean [Right Arm] Pulse Oximetry 100 100 Oxygen Delivery Method Sepsis Recent Fever Within 48 Hours Sepsis New/Unexplained Change in Mental Status Sepsis Action Taken by Nursing 04/22/20 20:40 04/22/20 20:50 04/22/20 21:00 Temperature Temperature Source Pulse Rate 82 95 H 98 H Pulse Rate [Right Finger] Pulse Rate from SpO2 Sensor Respiratory Rate 23 17 21 Respiratory Effort / Characteristics Respiratory Depth Blood Pressure 132/86 Blood Pressure [Right Arm] Blood Pressure Mean 98 Blood Pressure Mean [Right Arm] Pulse Oximetry 99 Oxygen Delivery Method Room Air Sepsis Recent Fever Within 48 Hours Sepsis New/Unexplained Change in Mental Status Sepsis Action Taken by Nursing 04/22/20 21:10 04/22/20 21:20 04/22/20 21:30 Temperature Temperature Source Pulse Rate 87 94 H Pulse Rate [Right Finger] Pulse Rate from SpO2 Sensor Respiratory Rate 19 21 22 Respiratory Effort / Characteristics Respiratory Depth Blood Pressure Blood Pressure [Right Arm] Blood Pressure Mean Blood Pressure Mean [Right Arm] Pulse Oximetry Oxygen Delivery Method Sepsis Recent Fever Within 48 Hours Sepsis New/Unexplained Change in Mental Status Sepsis Action Taken by Nursing 04/22/20 21:40 Temperature Temperature Source Pulse Rate 79 Pulse Rate [Right Finger] Pulse Rate from SpO2 Sensor Respiratory Rate 20 Respiratory Effort / Characteristics Respiratory Depth Blood Pressure Blood Pressure [Right Arm] Blood Pressure Mean Blood Pressure Mean [Right Arm] Pulse Oximetry Oxygen Delivery Method Sepsis Recent Fever Within 48 Hours Sepsis New/Unexplained Change in Mental Status Sepsis Action Taken by Long Term Medications Current Medication List: was personally reviewed by me Laboratory Data Attestation: I reviewed the patient's lab results. Result diagrams: 04/22/20 18:43 04/22/20 18:43 Lab Results 04/22/20 04/22/20 Range/Units 18:43 18:43 WBC 6.91 (4.8-10.8) K/uL RBC 3.94 L (4.2-5.4) M/uL Hgb 12.8 (12.0-16.0) g/dL Hct 37.8 (37-47) % MCV 95.9 (80-100) fL MCH 32.5 (25-34) pg MCHC 33.9 (32-36) g/dL RDW Std Deviation 51.5 H (36.4-46.3) fL RDW Coeff of [place] 14.6 H (11.5-14.5) % Plt Count 180 (130-400) K/uL MPV 10.7 H (7.4-10.4) fL Immature Gran % (Auto) 0.1 % Neut % (Auto) 60.3 % Lymph % (Auto) 27.5 % [place] % (Auto) 11.4 % Eos % (Auto) 0.4 % Baso % (Auto) 0.3 % Neut # (Auto) 4.16 (1.4-6.5) K/uL Lymph # (Auto) 1.90 (1.2-3.4) K/uL [place] # (Auto) 0.79 H (0.11-0.59) K/uL Eos # (Auto) 0.03 (0-0.5) K/uL Baso # (Auto) 0.02 (0-0.2) K/uL Immature Gran # (Auto) 0.01 (0.00-0.02) K/uL Absolute Nucleated RBC 0.05 H (0-0) K/uL Nucleated RBC % (auto) 0.8 % Sodium 135 L (136-145) mmol/L Potassium 3.5 (3.5-5.1) mmol/L Chloride 101 (98-107) mmol/L Carbon Dioxide 22 (21-32) mmol/L Anion Gap 12.0 H (3-11) BUN 25 H (7-18) mg/dl Creatinine 1.26 H (0.6-1.2) mg/dl Est Cr Clr Drug Dosing Not Reportable Est GFR ( Amer) 49.3 Est GFR (Non-Af Amer) 42.5 BUN/Creatinine Ratio 19.8 (10-20) Glucose 92 (70-99) mg/dl Calcium 8.8 (8.5-10.1) mg/dl Magnesium 2.0 (1.8-2.4) mg/dl Total Bilirubin 1.0 (0.2-1) mg/dl AST 46 H (15-37) U/L ALT 52 (12-78) U/L Alkaline Phosphatase 121 H (45-117) U/L Troponin I < 0.015 (0-0.045) ng/ml Total Protein 6.8 (6.4-8.2) gm/dl Albumin 3.3 L (3.4-5.0) gm/dl Globulin 3.5 (2.5-4.0) gm/dl Albumin/Globulin Ratio 1.0 (0.9-2) Lipase 153 (73-393) U/L Administered Medications Discontinued Medications Famotidine (Famotidine 20mg/5ml Iv Push) 20 mg IV ONE STA Stop: 04/22/20 18:24 Last Admin: 04/22/20 19:14 Dose: 20 mg Documented by: [id number] Sodium Chloride (Nss) 500 mls @ 999 mls/hr IV .Q31M JENNY Stop: 04/22/20 18:45 Last Infusion: 04/22/20 19:52 Dose: 0 mls/hr Documented by: [id number] Admin: 04/22/20 19:14 Dose: 999 mls/hr Documented by: [id number] Lorazepam (Ativan) 0.5 mg in 1 mls @ 1 mls/min IV NOW STA Stop: 04/22/20 18:15 Last Admin: 04/22/20 19:52 Dose: 1 mls/min Documented by: [id number] Morphine Sulfate (Morphine Sulfate 4 Mg/Ml 1 Ml Carp\Vial) 4 mg IV NOW STA Stop: 04/22/20 18:15 Last Admin: 04/22/20 19:13 Dose: 4 mg Documented by: [id number] Ondansetron HCl (Ondansetron Inj 2 Mg/Ml 2 Ml Vial) 4 mg IV NOW STA Stop: 04/22/20 18:15 Last Admin: 04/22/20 19:13 Dose: 4 mg Documented by: [id number] Imaging Data Radiologist's Impression: CT SCAN OF THE ABDOMEN AND PELVIS WITHOUT CONTRAST CLINICAL HISTORY: Abdominal pain. Possible bowel obstruction COMPARISON STUDY: December 16, 2019 TECHNIQUE: CT scan of the abdomen and pelvis was performed from the lung bases to the proximal femurs. Images are reviewed in the axial, sagittal, and coronal planes. IV contrast was not administered for this examination. A dose lowering technique was utilized adhering to the principles of ALARA. CT DOSE: 1026.40 mGy.cm FINDINGS: Lower chest: There are no pleural effusions. There is no basilar consolidation. There are minimal atelectatic changes. Liver: There is hepatic steatosis. No focal hepatic masses are visualized on this noncontrast examination. The liver is at the upper limits of normal in size. Gallbladder: Unremarkable. Spleen: Normal in size and attenuation. Pancreas: Unremarkable. Adrenal glands: There is low-density nodular thickening of both adrenal glands likely secondary to adenomatous or adrenal hyperplasia Kidneys: No renal, ureteral, or bladder calculi are visualized. Bowel: There are no transition zones to indicate bowel obstruction. There is no evidence of acute diverticulitis. The appendix appears normal. There are multiple fluid-filled small bowel loops without significant wall thickening. This a nonspecific finding. This can be seen in normals as well as with patients with an enteritis. Peritoneum: There is no intraperitoneal free air or abdominal ascites. Vasculature: The abdominal aorta is normal in course and caliber. Adenopathy: None. Pelvic viscera: The bladder, and pelvic viscera are unremarkable. Skeletal structures: No destructive osseous lesions are seen. IMPRESSION: 1. Fluid-filled small bowel loops without evidence of obstruction. No evidence of free air. 2. Normal appendix. 3. No evidence of acute diverticulitis 4. No renal, ureteral, or bladder calculi identified. 5. Hepatic steatosis Blood Pressure Blood Pressure Findings: Low blood pressure Blood Pressure Disposition: further management by hospitalist Discharge Plan Visit Data Chief Complaint: Cardiac Assessment Stated Complaint: SOB, CHEST FEELS HEAVY, DIZZY, WAS HERE LAST NIGHT ED Provider: Paco Hayes Discharge Problem: Hypotension, Low back pain, Ileus, Nausea, Acute dehydration Patient Disposition: Admitted As Inpatient Condition: Fair Forms Stand Alone Forms: [facility], Virtual Emergency Department, Important Visit Information Prescriptions Prescriptions: No Action digoxin 125 mcg (0.125 mg) tablet 125 mcg PO DAILY@1600 RF: 0 benzonatate 100 mg capsule 100 mg PO TID RF: 0 pantoprazole 40 mg tablet,delayed release (DR/EC) 40 mg PO DAILY RF: 0 gabapentin 300 mg capsule 300 mg PO TID RF: 0 carvedilol 25 mg tablet 25 mg PO BID RF: 0 multivitamin [Multiple Vitamins] Tablet 6 tab PO QAM RF: 0 furosemide 40 mg tablet 40 mg PO QAM RF: 0 levothyroxine 112 mcg tablet 112 mcg PO QAM RF: 0 Xarelto 20 mg tablet 20 mg PO DAILY@1600 RF: 0 diltiazem HCl [Cartia XT] 180 mg capsule,extended release 24hr 180 mg PO QAM RF: 0 oxycodone-acetaminophen 5-325 mg tablet 1 - 1.5 tab PO BID PRN (Reason: Pain) RF: 0 zolpidem 10 mg tablet 10 mg PO HS RF: 0 lisinopril 40 mg tablet 40 mg PO QAM RF: 0 ergocalciferol (vitamin D2) [Vitamin D2] 1,250 mcg (50,000 unit) Capsule 50,000 unit PO MOWEFR RF: 0 minocycline 100 mg capsule 200 mg PO BID RF: 0 prednisone 5 mg tablet 5 mg PO QAM RF: 0 cephalexin 500 mg capsule 500 mg PO QID RF: 0 gabapentin 100 mg capsule 100 mg PO TID RF: 0 Referrals Referrals: Qasim Rangel MD [Primary Care Provider] - Discharge Problem: Hypotension Qualifiers: Hypotension type: unspecified hypotension type Qualified Code(s): I95.9 - Hypotension, unspecified Low back pain Qualifiers: Chronicity: chronic Back pain laterality: midline Sciatica presence: without sciatica Qualified Code(s): M54.5 - Low back pain
[2020-04-22 18:52] LABS: Basophils # (auto) 0.02 K/uL (0-0.2); Basophils % (auto) 0.3 %; Eosinophils # (auto) 0.03 K/uL (0-0.5); Eosinophils % (auto) 0.4 %; Hematocrit (blood only) 37.8 % (37-47); Hemoglobin 12.8 g/dL (12.0-16.0); Immature Granulocytes # (auto) 0.01 K/uL (0.00-0.02); Immature Granulocytes % (auto) 0.1 %; Lymphocytes % (auto) 27.5 %; Mean Corpuscular Hemoglobin 32.5 pg (25-34); Mean Corpuscular Hgb Conc 33.9 g/dL (32-36); Mean Corpuscular Volume 95.9 fL (80-100); Mean Platelet Volume 10.7 fL (7.4-10.4); Monocytes # (auto) 0.79 K/uL (0.11-0.59); Monocytes % (auto) 11.4 %; Neutrophils # (auto) 4.16 K/uL (1.4-6.5); Neutrophils % (auto) 60.3 %; Nucleated RBC # (auto) 0.05 K/uL (0-0); Nucleated RBC % (auto) 0.8 %; Platelet Count 180 K/uL (130-400); RDW Coefficient of Variation 14.6 % (11.5-14.5); RDW Standard Deviation 51.5 fL (36.4-46.3); Red Blood Count 3.94 M/uL (4.2-5.4); White Blood Count 6.91 K/uL (4.8-10.8)
[2020-04-22 19:08] LABS: Alanine Aminotransferase 52 U/L (12-78); Albumin Level 3.3 gm/dl (3.4-5.0); Aspartate Aminotransferase 46 U/L (15-37); BUN Creatinine Ratio 19.8 (10-20); Blood Urea Nitrogen 25 mg/dl (7-18); Calcium 8.8 mg/dl (8.5-10.1); Carbon Dioxide 22 mmol/L (21-32); Chloride 101 mmol/L (98-107); Est GFR (African American) 49.3; Est GFR (Non-African American) 42.5; Glucose 92 mg/dl (70-99); Lipase 153 U/L (73-393); Potassium 3.5 mmol/L (3.5-5.1); Sodium 135 mmol/L (136-145)
[2020-04-22 19:13] LABS: Alkaline Phosphatase 121 U/L (45-117); Globulin 3.5 gm/dl (2.5-4.0); Total Protein 6.8 gm/dl (6.4-8.2); Troponin I < 0.015 ng/ml (0-0.045)
--- NOTE | 2020-04-22 19:39 | CT Scan Report ---
CT SCAN OF THE ABDOMEN AND PELVIS WITHOUT CONTRAST CLINICAL HISTORY: Abdominal pain. Possible bowel obstruction COMPARISON STUDY: December 16, 2019 TECHNIQUE: CT scan of the abdomen and pelvis was performed from the lung bases to the proximal femurs . Images are reviewed in the axial, sagittal, and coronal planes. IV contrast was not administered fo r this examination. A dose lowering technique was utilized adhering to the principles of ALARA. CT DOSE: 1026.40 mGy.cm FINDINGS: Lower chest: There are no pleural effusions. There is no basilar consolidation. There are minimal ate lectatic changes. Liver: There is hepatic steatosis. No focal hepatic masses are visualized on this noncontrast examina tion. The liver is at the upper limits of normal in size. Gallbladder: Unremarkable. Spleen: Normal in size and attenuation. Pancreas: Unremarkable. Adrenal glands: There is low-density nodular thickening of both adrenal glands likely secondary to ad enomatous or adrenal hyperplasia Kidneys: No renal, ureteral, or bladder calculi are visualized. Bowel: There are no transition zones to indicate bowel obstruction. There is no evidence of acute div erticulitis. The appendix appears normal. There are multiple fluid-filled small bowel loops without s ignificant wall thickening. This a nonspecific finding. This can be seen in normals as well as with p atients with an enteritis. Peritoneum: There is no intraperitoneal free air or abdominal ascites. Vasculature: The abdominal aorta is normal in course and caliber. Adenopathy: None. Pelvic viscera: The bladder, and pelvic viscera are unremarkable. Skeletal structures: No destructive osseous lesions are seen. IMPRESSION: 1. Fluid-filled small bowel loops without evidence of obstruction. No evidence of free air. 2. Normal appendix. 3. No evidence of acute diverticulitis 4. No renal, ureteral, or bladder calculi identified. 5. Hepatic steatosis ACT 112: Negative or not required by law. Electronically signed by: Eros Crow M.D. 04/22/2020 7:38 PM
--- NOTE | 2020-04-22 21:36 | History & Physical Report ---
Date of Service April 22, 2020 Assessment & Plan (1) Lower back pain: Discussed with patient importance of taking medications as prescribed and not to abruptly discontinue medications. -Continue Gabapentin 300mg po TID and 100mg PRN -Continue Percocet PRN Present on Admission?: Yes (2) Atrial fibrillation: Rate controlled. Anticoagulated on Rivaroxaban -Continue Carvedilol 25mg po BID - dose per [facility] records -Continue Digoxin. Level was subtherapeutic on 04/21/20 at 0.5. Consider discontinuing this medication to streamline patient's medication list -Continue Diltiazem 180mg po qAM -Continue Rivaroxaban Present on Admission?: Yes (3) Hypothyroidism: Low TSH 0.259 yesterday -Check T3 -Continue Synthroid (4) Chronic systolic CHF (congestive heart failure): Appear well compensated -Continue Lisinopril, Carvedilol and Lasix Present on Admission?: Yes (5) Ileus: +BS. Patient is passing flatus -Monitor -Avoid narcotics where possible Present on Admission?: Yes (6) Bronchiectasis: Chronic. Stable. No SOB/Cough/O2 required at this time -Continue Prednisone 5mg po qAM -Continue Tessalon 100mg po TID -Continue Keflex F/E/N - Received 1L NS in ER, electrolytes WNL, Heart Healthy diet as tolerated Ppx- Rivaroxaban for AF, Continue Protonix 40mg po daily Code -DNR/DNI Dispo - Obs to medical floor Present on Admission?: Yes History of Present Illness Chief Complaint: "toxicity" Primary Care Provider: Qasim Rangel MD Eva Ford is a 74yo C female with history of AF on Xarelto, CHF/NICM, bronchiolitis, hypothyroidism presenting to the ER with complaint of "toxicity". Patient was seen in the ER yesterday and was treated for anxiety. She returns today with multiple complaints. Patient is currently being managed with gabapentin and Percocet for chronic back pain from spinal stenosis. She states that her current regimen is controlling her pain quite well however, she is con cerned that the pills are "toxic". She states that she does not think the pills breakdown efficiently and that pieces of the pills are left behind leading to toxicity. She is specifically complaining of nausea, abdominal bloating and feeling of electrical shocks through her body and brain spinning. Patient reports taking her medications as prescribed but may miss a few doses. ER Course: Pepcid, Ativan, Morphine, Zofran Allergies Allergy/AdvReac Type Severity Reaction Status Date / Time codeine AdvReac Intermediate SEVERE GI Verified 04/22/20 19:33 SYMPTOMS Home Medications Home Medications Medication Instructions Recorded Confirmed Type Xarelto 20 mg PO DAILY@1600 11/30/18 04/22/20 History furosemide 40 mg PO QAM 11/30/18 04/22/20 History levothyroxine 112 mcg PO QAM 11/30/18 04/22/20 History multivitamin [Multiple Vitamins] 6 tab PO QAM 11/30/18 04/22/20 History digoxin 125 mcg (0.125 mg) tablet 125 mcg PO DAILY@1600 07/07/19 04/22/20 History diltiazem HCl [Cartia XT] 180 mg PO QAM 12/11/19 04/22/20 History lisinopril 40 mg PO QAM 12/11/19 04/22/20 History oxycodone-acetaminophen 1 - 1.5 tab PO BID PRN 12/11/19 04/22/20 History zolpidem 10 mg PO HS 12/11/19 04/22/20 History ergocalciferol (vitamin D2) 50,000 unit PO MOWEFR 12/16/19 04/22/20 History [Vitamin D2] minocycline 200 mg PO BID 01/25/20 04/22/20 History cephalexin 500 mg PO QID 04/21/20 04/22/20 History gabapentin 100 mg PO TID 04/21/20 04/22/20 History prednisone 5 mg PO QAM 04/21/20 04/22/20 History benzonatate 100 mg PO TID 04/22/20 04/22/20 History carvedilol 25 mg PO BID 04/22/20 04/22/20 History gabapentin 300 mg PO TID 04/22/20 04/22/20 History pantoprazole 40 mg PO DAILY 04/22/20 04/22/20 History Past Med/Surg History Medical History Ambulatory dysfunction Atrial fibrillation Atrial fibrillation with RVR CHF (congestive heart failure) Chronic anticoagulation Chronic fatigue syndrome Chronic, continuous use of opioids History of uterine fibroid Hyponatremia Hypothyroidism Multinodular goiter Weakness Surgical History H/O breast augmentation S/P tooth extraction Family History Mother , age 83 with lung cancer and COPD COPD (chronic obstructive pulmonary disease) Lung cancer Father , in 70s of bladder cancer and COPD COPD (chronic obstructive pulmonary disease) Bladder cancer Other Hypertension Social History Smoking Status: Never smoker Second Hand Exposure: No; Hx Alcohol Use: No Hx Substance Use: No Preferred Language: Latvian Communication Ability: Effective [employer] Required: No Beliefs That Will Affect Care: None Current Living Situation: Family Current Living Situation Comment: zev Cota current occupational status: retired and disabled other: Disabled in her 50s. 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 Denies abdominal pain, nausea, vomiting, diarrhea, constipation Physical Exam 2 Physical Exam: General: patient resting comfortably, NAD, non-toxic in appearance, AA&O x 4 Skin: warm, dry, intact, gold discoloration on skin of nose from chronic minocycline use HEENT: NC/AT, PERRL, EOMI, anicteric sclera, conjunctiva without injection, external ear normal to inspection and nontender, nares patent, moist mucus membranes, dentition intact, no oropharyngeal lesions, neck supple, trachea midline, no LAD, no thyromegaly, no JVD Heart: +S1/S2, irregularly irregular, no m/r/g Lungs: equal air entry bilaterally, no rales/rhonchi/wheezes Abd: +BS, soft, NT/ND, no masses/organomegaly/ascites Ext: warm, 2+ pulses in UE/LE bilaterally, no clubbing/cyanosis or edema Neuro: nonfocal, patient AA&O x 4, speech intact, no facial droop, moving all extremities on command with equal strength 5/5 Results & Data Results & Data ([facility]) Vital Signs (Past 12 Hours) Vital Signs Temp Pulse Pulse Resp BP BP Pulse Ox 04/22/20 20:50 95 H 17 04/22/20 20:40 82 23 04/22/20 20:30 90 20 100 04/22/20 20:20 92 H 12 100 04/22/20 20:10 115 H 20 04/22/20 20:02 97 H 20 103/55 L 100 04/22/20 20:00 89 21 100 04/22/20 19:57 87 19 100 04/22/20 19:17 88 92 H 20 114/75 100 04/22/20 19:11 84 16 114/75 100 04/22/20 17:03 36.8 C 82 18 97/58 L 100 Laboratory Results Lab Results 04/22/20 04/22/20 04/22/20 Range/Units 18:43 18:43 18:43 WBC 6.91 (4.8-10.8) K/uL RBC 3.94 L (4.2-5.4) M/uL Hgb 12.8 (12.0-16.0) g/dL Hct 37.8 (37-47) % MCV 95.9 (80-100) fL MCH 32.5 (25-34) pg MCHC 33.9 (32-36) g/dL RDW Std Deviation 51.5 H (36.4-46.3) fL RDW Coeff of [place] 14.6 H (11.5-14.5) % Plt Count 180 (130-400) K/uL MPV 10.7 H (7.4-10.4) fL Immature Gran % (Auto) 0.1 % Neut % (Auto) 60.3 % Lymph % (Auto) 27.5 % [place] % (Auto) 11.4 % Eos % (Auto) 0.4 % Baso % (Auto) 0.3 % Neut # (Auto) 4.16 (1.4-6.5) K/uL Lymph # (Auto) 1.90 (1.2-3.4) K/uL [place] # (Auto) 0.79 H (0.11-0.59) K/uL Eos # (Auto) 0.03 (0-0.5) K/uL Baso # (Auto) 0.02 (0-0.2) K/uL Immature Gran # (Auto) 0.01 (0.00-0.02) K/uL Absolute Nucleated RBC 0.05 H (0-0) K/uL Nucleated RBC % (auto) 0.8 % Sodium 135 L (136-145) mmol/L Potassium 3.5 (3.5-5.1) mmol/L Chloride 101 (98-107) mmol/L Carbon Dioxide 22 (21-32) mmol/L Anion Gap 12.0 H (3-11) BUN 25 H (7-18) mg/dl Creatinine 1.26 H (0.6-1.2) mg/dl Est Cr Clr Drug Dosing Not Reportable Est GFR ( Amer) 49.3 Est GFR (Non-Af Amer) 42.5 BUN/Creatinine Ratio 19.8 (10-20) Glucose 92 (70-99) mg/dl Calcium 8.8 (8.5-10.1) mg/dl Phosphorus 2.6 (2.5-4.9) mg/dl Magnesium 2.0 (1.8-2.4) mg/dl Total Bilirubin 1.0 (0.2-1) mg/dl AST 46 H (15-37) U/L ALT 52 (12-78) U/L Alkaline Phosphatase 121 H (45-117) U/L Troponin I < 0.015 (0-0.045) ng/ml Total Protein 6.8 (6.4-8.2) gm/dl Albumin 3.3 L (3.4-5.0) gm/dl Globulin 3.5 (2.5-4.0) gm/dl Albumin/Globulin Ratio 1.0 (0.9-2) Lipase 153 (73-393) U/L Diagnostic Findings CT SCAN OF THE ABDOMEN AND PELVIS WITHOUT CONTRAST CLINICAL HISTORY: Abdominal pain. Possible bowel obstruction COMPARISON STUDY: December 16, 2019 TECHNIQUE: CT scan of the abdomen and pelvis was performed from the lung bases to the proximal femurs. Images are reviewed in the axial, sagittal, and coronal planes. IV contrast was not administered for this examination. A dose lowering technique was utilized adhering to the principles of ALARA. CT DOSE: 1026.40 mGy.cm FINDINGS: Lower chest: There are no pleural effusions. There is no basilar consolidation. There are minimal atelectatic changes. Liver: There is hepatic steatosis. No focal hepatic masses are visualized on this noncontrast examination. The liver is at the upper limits of normal in size. Gallbladder: Unremarkable. Spleen: Normal in size and attenuation. Pancreas: Unremarkable. Adrenal glands: There is low-density nodular thickening of both adrenal glands likely secondary to adenomatous or adrenal hyperplasia Kidneys: No renal, ureteral, or bladder calculi are visualized. Bowel: There are no transition zones to indicate bowel obstruction. There is no evidence of acute diverticulitis. The appendix appears normal. There are multiple fluid-filled small bowel loops without significant wall thickening. This a nonspecific finding. This can be seen in normals as well as with patients with an enteritis. Peritoneum: There is no intraperitoneal free air or abdominal ascites. Vasculature: The abdominal aorta is normal in course and caliber. Adenopathy: None. Pelvic viscera: The bladder, and pelvic viscera are unremarkable. Skeletal structures: No destructive osseous lesions are seen. IMPRESSION: 1. Fluid-filled small bowel loops without evidence of obstruction. No evidence of free air. 2. Normal appendix. 3. No evidence of acute diverticulitis 4. No renal, ureteral, or bladder calculi identified. 5. Hepatic steatosis ACT 112: Negative or not required by law. Electronically signed by: Eros Crow M.D. 04/22/2020 7:38 PM Dictated: 04/22/201932 Transcribed: 04/22/201932 ECG Additional Comments: Study shows atrial fibrillation at 99 bpm, occasional PVCs, QRS = 96, QTc = 459, no acute ischemic changes Code Status & VTE Plan Code Status DNR/DNI PG Care Time/CCT Total # of Minutes Spent Total Time Spent with Patient: Total time spent is greater than 50% in coordination of care (as documented) at patient's floor/unit and/or counseling patient: Coding Level of Care Code 99917 OBS Care - Level 3 Diagnoses Lower back pain M54.5; G89.29 Back pain laterality: midline Chronicity: chronic Sciatica presence: without sciatica Atrial fibrillation I48.20 Atrial fibrillation type: unspecified chronic Hypothyroidism E03.9 Hypothyroidism type: acquired Chronic systolic CHF (congestive heart failure) I50.22 Ileus K56.7 Bronchiectasis J47.9 (1) Atrial fibrillation Atrial fibrillation type: unspecified chronic Qualified Code(s): I48.20 - Chronic atrial fibrillation, unspecified (2) Hypothyroidism Hypothyroidism type: acquired Qualified Code(s): E03.9 - Hypothyroidism, unspecified (3) Lower back pain Back pain laterality: midline Chronicity: chronic Sciatica presence: without sciatica Qualified Code(s): M54.5 - Low back pain; G89.29 - Other chronic pain
[2020-04-22] MEDS ORDERED: ACETAMINOPHEN 325 MG TAB PO PRN (22:43)
[2020-04-22] MEDS ORDERED: ONDANSETRON INJ 2 MG/ML 2 ML VIAL IV PRN (22:43)
[2020-04-22] MEDS ORDERED: DOCUSATE SODIUM 100 MG CAP PO PRN (22:43)
[2020-04-22] MEDS ORDERED: ZOLPIDEM TARTRATE 10 MG TAB PO STA (23:34)
[2020-04-23 06:10] LABS: Basophils # (auto) 0.02 K/uL (0-0.2); Basophils % (auto) 0.4 %; Eosinophils # (auto) 0.06 K/uL (0-0.5); Eosinophils % (auto) 1.2 %; Hemoglobin 12.8 g/dL (12.0-16.0); Immature Granulocytes # (auto) 0.01 K/uL (0.00-0.02); Immature Granulocytes % (auto) 0.2 %; Lymphocytes # (auto) 2.22 K/uL (1.2-3.4); Lymphocytes % (auto) 45.4 %; Mean Corpuscular Hemoglobin 33.2 pg (25-34); Mean Corpuscular Hgb Conc 34.6 g/dL (32-36); Mean Corpuscular Volume 96.1 fL (80-100); Monocytes # (auto) 0.54 K/uL (0.11-0.59); Neutrophils # (auto) 2.04 K/uL (1.4-6.5); Neutrophils % (auto) 41.8 %; Nucleated RBC # (auto) 0.02 K/uL (0-0); Nucleated RBC % (auto) 0.4 %; Platelet Count 152 K/uL (130-400); RDW Coefficient of Variation 14.7 % (11.5-14.5); RDW Standard Deviation 51.4 fL (36.4-46.3); Red Blood Count 3.85 M/uL (4.2-5.4); White Blood Count 4.89 K/uL (4.8-10.8)
[2020-04-23] MEDS: OXYCODONE/ACETAMINOPHEN 5mg/325mg TAB PO PRN ×2 (06:21→12:19)
[2020-04-23] MEDS ORDERED: LEVOTHYROXINE SODIUM 112 MCG TABLET PO SCH (06:30)
[2020-04-23] MEDS: GABAPENTIN 100 MG CAP PO PRN ×2 (06:31→12:19)
[2020-04-23 06:47] LABS: Albumin Level 3.3 gm/dl (3.4-5.0); BUN Creatinine Ratio 17.6 (10-20); Bilirubin Direct 0.3 mg/dl (0-0.2); Calcium 8.9 mg/dl (8.5-10.1); Creatinine Clr Calc Pharmacy 55.3 ml/min; Est GFR (African American) 58.7; Est GFR (Non-African American) 50.7; Potassium 3.3 mmol/L (3.5-5.1)
[2020-04-23 06:54] LABS: Bilirubin,Total 1.6 mg/dl (0.2-1); Total Protein 6.7 gm/dl (6.4-8.2)
[2020-04-23] MEDS: GABAPENTIN 300 MG CAP PO SCH ×2 (07:58→13:24)
[2020-04-23] MEDS ORDERED: PANTOprazole 40 MG TAB PO SCH (09:00)
[2020-04-23] MEDS ORDERED: FUROSEMIDE 40 MG TAB PO SCH (09:00)
[2020-04-23] MEDS ORDERED: predniSONE 5 MG TAB PO SCH (09:00)
[2020-04-23] MEDS ORDERED: carvediloL 25 MG TAB PO SCH (09:00)
[2020-04-23] MEDS ORDERED: dilTIAZem HCL 180 MG CAPCR PO SCH (09:00)
[2020-04-23] MEDS ORDERED: lisinopriL 40 MG TAB PO SCH (09:00)
[2020-04-23] MEDS: cephALEXin 500 MG CAP PO SCH ×2 (09:20→12:20)
[2020-04-23] MEDS: BENZONATATE 100 MG CAPSULE PO SCH ×2 (09:21→13:24)
--- NOTE | 2020-04-23 10:45 | Discharge Summary ---
Date of Service April 23, 2020 Admission HPI Per Admitting Provider Eva Ford is a 74yo C female with history of AF on Xarelto, CHF/NICM, bronchiolitis, hypothyroidism presenting to the ER with complaint of "toxicity". Patient was seen in the ER yesterday and was treated for anxiety. She returns today with multiple complaints. Patient is currently being managed with gabapentin and Percocet for chronic back pain from spinal stenosis. She states that her current regimen is controlling her pain quite well however, she is concerned that the pills are "toxic". She states that she does not think the pills breakdown efficiently and that pieces of the pills are left behind leading to toxicity. She is specifically complaining of nausea, abdominal bloating and feeling of electrical shocks through her body and brain spinning. Patient reports taking her medications as prescribed but may miss a few doses. ER Course: Pepcid, Ativan, Morphine, Zofran Admission Exam Per Admitting Provider General: patient resting comfortably, NAD, non-toxic in appearance, AA&O x 4 Skin: warm, dry, intact, gold discoloration on skin of nose from chronic minocycline use HEENT: NC/AT, PERRL, EOMI, anicteric sclera, conjunctiva without injection, external ear normal to inspection and nontender, nares patent, moist mucus membranes, dentition intact, no oropharyngeal lesions, neck supple, trachea midline, no LAD, no thyromegaly, no JVD Heart: +S1/S2, irregularly irregular, no m/r/g Lungs: equal air entry bilaterally, no rales/rhonchi/wheezes Abd: +BS, soft, NT/ND, no masses/organomegaly/ascites Ext: warm, 2+ pulses in UE/LE bilaterally, no clubbing/cyanosis or edema Neuro: nonfocal, patient AA&O x 4, speech intact, no facial droop, moving all extremities on command with equal strength 5/5 Principal Diagnosis Low back pain Discharge Exam Constitutional well developed, well nourished and cooperative; no acute distress Respiratory normal respiratory effort, lungs clear to auscultation no respiratory distress Auscultation: no crackles, no rales, no rhonchi and no wheezes Cardiovascular Rate/Rhythm: regular rate and regular rhythm Heart Sounds: normal S1 and normal S2; no gallop, no murmur and no cardiac rub Gastrointestinal (Abdomen) normal bowel sounds, soft, nontender, no hepatosplenomegaly Psychiatric A+Ox3, euthymic affect Affect: euthymic affect Discharge Data Allergies Allergy/AdvReac Type Severity Reaction Status Date / Time codeine AdvReac Intermediate SEVERE GI Verified 04/22/20 19:33 SYMPTOMS Consultations 04/22/20 20:32 ED Decision to Admit Stat Ordered Studies 04/22/20 18:14 CT abd pelvis wo con Stat Hospital Course (1) Lower back pain: Patient came into [facility] for concern that the pills are "toxic". Specifically, she complained of nausea, abdominal bloating, feeling of electrical shocks throughout her body, and brain spinning. She was educated on her chronic back pain as it pertains to her spinal stenosis/arthritic changes and the possibility of musculoligamentous source of pain. The patient understands that her current medications are helping her with the pain, as she stated, but may be causing some of the strange feelings that she reports during this visit. She was encouraged to follow-up with Dr. Rangel for further discussions of her medication regimen and possible referral to Sports Medicine, as they had previously been discussing. (2) Atrial fibrillation: (3) Hypothyroidism: (4) Chronic systolic CHF (congestive heart failure): (5) Ileus: (6) Bronchiectasis: Total Time Total Time Spent Total Time Spent (In Minutes): <30 Discharge Plan Discharge Items Patient Disposition: Home - Self-Care Reason For Visit: FEELING TOXICITY Discharge Diagnosis: chronic low back pain Condition on Discharge: Fair Activity: Per Instructions section Non-emergency contact: Primary Care Provider Call non-emergency contact if: your symptoms worsen, your pain is not controlled and your pain is worsening Follow-up/Referrals: Qasim Rangel MD [Primary Care Provider] - 05/04/20 12:40 pm Diet: Heart Healthy Addtl Attending Provider Instructions: "feeling toxic" -fortunatley nothing was drastically wrong - but the way you were feeling would definitely fit with side effects of the medications you're on - gabapentin and percocet can both make people feel "off" -- and certainly that can be why you weren't feeling like yourself -the problem is that for now those are helping with the back pain, so as we discussed, for the short term, the tradeoff is that you are pretty pleased with how the medicines are helping your back pain, but obviously not so thrilled with feeling not-yourself -over time, the goal will be to treat the causes of the back pain/ get the back pain better - so that you can start to get off of the medications (probably dropping the percocet first, and then working on the gabapentin later) -as long as you're not driving, not operating equipment, or doing anything else that could put you in harm's way, right now it's OK to continue to take the medicines Dr Rangel has prescribed back pain -as we discussed, spinal stenosis related pain itself is usually more of an ache/numbness/weakness of both legs when one is walking that gets better when resting or leaning forward. your pain is much more in the low back itself as well as the buttock. -what we're seeing on your imaging is that there's a moderate amount of arthritis and mild degree of disc disease that all contribute to the "spinal stenosis" - as well as a slight slippage of your L4 vertebra on your L5 -- HOWEVER, really your symptoms don't fit with this as the main cause as much as the surrounding muscles and ligaments -back pain that is in the back and/or buttock - as you're describing - is largely biomechanical (ie mostly caused by tight muscles, ligaments, and fascia) - and while the arthritis can contribute to the muscle/ligament dysfunction, usually pain gets better more from actually treating the tight muscles and ligaments -Dr Rangel's plan to have the sports medicine docs look at you for possible benefit of injections is likely to be quite helpful - we'll try to help expedite that -additionally, getting you set up with one of our DO residents (they work with Dr Rangel) for hands-on therapy (called OMT) can also be really helpful for this type of back pain - we'll also ask to get that set up for [facility] ---->both types of treatments can be really complimentary to each other -ideally the meterman plan will be to get the cause of the pain better, so that the medicines can be weaned down or stopped incidentals: the "ulcer medicine" was protonix (pantoprazole) that actually was listed as part of your home medications -- Dr Rangel can follow how you do with that, and maybe stop it in a few weeks to see if you still need it -your thyroid levels would suggest that your dose of synthroid (levothyroxoine) might be the tiniest bit high - but since it was just barely off, and changes in thyroid dosing take a long time to really take effect, we'll defer this to Dr Rangel so he can follow things appropriately Pending Studies at Discharge: No Stand-Alone Forms: [facility], Opioid Pain Management, Smoking Cessation Medications and DC Order Prescriptions: Continued digoxin 125 mcg (0.125 mg) tablet 125 mcg PO DAILY@1600 RF: 0 benzonatate 100 mg capsule 100 mg PO TID RF: 0 pantoprazole 40 mg tablet,delayed release (DR/EC) 40 mg PO DAILY RF: 0 gabapentin 300 mg capsule 300 mg PO TID RF: 0 carvedilol 25 mg tablet 25 mg PO BID RF: 0 multivitamin [Multiple Vitamins] Tablet 6 tab PO QAM RF: 0 furosemide 40 mg tablet 40 mg PO QAM RF: 0 levothyroxine 112 mcg tablet 112 mcg PO QAM RF: 0 Xarelto 20 mg tablet 20 mg PO DAILY@1600 RF: 0 diltiazem HCl [Cartia XT] 180 mg capsule,extended release 24hr 180 mg PO QAM RF: 0 oxycodone-acetaminophen 5-325 mg tablet 1 - 1.5 tab PO BID PRN (Reason: Pain) RF: 0 zolpidem 10 mg tablet 10 mg PO HS RF: 0 lisinopril 40 mg tablet 40 mg PO QAM RF: 0 ergocalciferol (vitamin D2) [Vitamin D2] 1,250 mcg (50,000 unit) Capsule 50,000 unit PO MOWEFR RF: 0 minocycline 100 mg capsule 200 mg PO BID RF: 0 prednisone 5 mg tablet 5 mg PO QAM RF: 0 cephalexin 500 mg capsule 500 mg PO QID RF: 0 gabapentin 100 mg capsule 100 mg PO TID RF: 0 Discharge Orders: Discharge Order (Routine); Ordered 04/23/20 Ordered By: Luke Wagoner Admission Data Admit Date/Time: 04/22/20 21:15 Attending Provider: Luke Wagoner Admit Provider: Nano Herman Primary Care Provider: Qasim Rangel Other Providers: Nano Herman Other Interventions: Discharge Summary Assessment (RN) Last Done: 04/23/20 13:41 Supervising Physician Co-Signing Physician Notes I personally examined the patient and verified all love points of history and exam, discussed case, and agree with decision making with Dr Hoyos. feeling up to going home extensive discussions w pt w son on speakerphone personally completed additional provider instructions vitals noted nad heent nc at mmm breathing unlabored no accessory muscles good effort skin no rashes no pallor or icterus feeling off - agree w her assessment probably was med related - but she notes the conundrum of feeling relief from pain but also feeling off mentally. back pain sounds to be heavily biomechanical - she notes that she's going to see sports med - sounds like for probbaly trigger points/etc - this would likely be helpful. will also try to facilitate referral for OMT as this would likely help as well. once pain under better control could then hopefully quickly wean percocet and then slowly wean gabapentin. safe for home, otherwise as above Resident Activity Tracking Resident Involvement: Resident Care Provided Care Provided: Adult Hospital Medicine
[2020-04-23] MEDS ORDERED: DIGOXIN 0.125 MG TAB PO SCH (16:00)
[2020-04-23] MEDS ORDERED: RIVAROXABAN 20 MG TAB PO SCH (16:00)
--- NOTE | 2020-04-23 19:12 | Billing Data ---
Date of Service April 23, 2020 Coding Level of Care Code 42997 OBS Care - Discharge
[2020-04-23] MEDS ORDERED: ZOLPIDEM TARTRATE 10 MG TAB PO SCH (21:00)
--- NOTE | 2020-04-24 06:42 | Electrocardiogram Report ---
Test Reason : Blood Pressure : / mmHG Vent. Rate : 099 BPM Atrial Rate : 098 BPM P-R Int : 000 ms QRS Dur : 096 ms QT Int : 358 ms P-R-T Axes : 000 -35 211 degrees QTc Int : 459 ms Atrial fibrillation with premature ventricular or aberrantly conducted complexes Left axis deviation Low voltage QRS Cannot rule out Anterior infarct , age undetermined Nonspecific T wave abnormality Abnormal ECG When compared with ECG of 21-APR-2020 19:19, No significant change was found Confirmed by Abbe Shah ([id number]) on 04/24/2020 6:42:12 AM Referred By: REFERRED SELF Confirmed By:Abbe Shah
== END 2020-04-23 15:13 | disposition home or self-care (01) ==
LOC: ED 16:49 → 3N 16:49 → SUATTDRO 21:15 → 3N 22:29

== ENCOUNTER 2020-04-28 17:24 | Inpatient (IN) ==
[2020-04-28] MEDS ORDERED: ONDANSETRON INJ 2 MG/ML 2 ML VIAL IV STA (18:20)
--- NOTE | 2020-04-28 18:20 | Emergency Department Note ---
Impression & Plan Low back pain, Ambulatory dysfunction, Ileus, Spinal stenosis, Acute urinary retention ED Provider Note INFORMANT: Patient ED PROVIDER(S): Allan Clayton MD CHIEF COMPLAINT: Low back pain PLAN: Disposition: Admitted Condition: Good MEDICAL DECISION MAKING: Patient presented complaining of acute low back pain. She also noted feeling full and that she was having difficulty urinating. The patient had a moderate amount of urine noted on bladder scan. A Sheridan catheter was placed and she had over 900 mL removed. She did feel better with this. She was also treated with Dilaudid and Zofran. The patient noted weakness in her legs. Given her history spinal stenosis and complaints of back pain she underwent a work-up. The patient had a CT scan of her abdomen and pelvis which did not reveal any signif icant bony pathology. There was an ileus noted. Her ECG showed atrial fibrillation without ischemic change. The patient's CBC, chemistry panel, inflammatory markers, and urinalysis were unremarkable. The patient was reassessed and was doing better. She was sent for MR imaging which revealed sig nificant spinal stenosis but no findings to suggest cauda equina. Given the patient's inability to get around and severe discomfort I discussed further management in the hospital. Consultation was made with internal medicine. The patient was evaluated in the ER for further management. Triage Nursing notes reviewed and agree them. Prior medical records reviewed last visit and discharge summary reviewed regarding the patient's back pain. No recent MR imaging noted. Vital Signs: reviewed and remarkable for no significant abnormalities Differential diagnosis: Musculoskeletal, disc herniation, fracture, metastatic disease, cord compression, discitis, sciatica, cauda equina, infection, aortic disease, renal colic, gastrointestinal, as well as other pathologies. Diagnostics interpreted by me: ECG: Twelve-lead ECG reveals atrial fibrillation at 97 bpm. There are PVCs present. Left axis deviation and a low voltage QRS. No ST elevation or depression. Cardiac Monitoring: Cardiac monitoring ordered by me: The patient was placed on continuous cardiac monitoring and observed. It revealed a atrial fibrillation at 86 beats per minute without evidence of tachy/bradycardia dysrhythmia. Imaging studies: CT scan and MRI as noted above. I refer you to EMR for further details. Consultation(s): [facility] HPI: The patient is a 74 year old female who presents to the Emergency Room with complaints of worsening low back pain. This started 5 days ago and is worsening. It is chronic but worsening. She cut down her oxycodone after discharge then the pain worsened. The patient also notes the following associated symptoms, numbness, abdominal bloating, difficulty walking, nausea, urinary retention. The patient has restarted the oxy without success for relieving factors. Current pain is rated as 15/10. Pt denies LOC, headache, fevers, chills, diaphoresis, visual changes, neck pain, chest pain, breathing difficulties, vomiting, back pain, melena, hematochezia, urinary symptoms, numbness, weakness, lymphadenopathy, rash, or other complaints. ROS: See above HPI for pertinent positives & negatives. A total of 10 systems reviewed and were otherwise negative. PAST MEDICAL HISTORY:See Below, Chronic low back pain PAST SURGICAL HISTORY:See Below, tooth extraction FAMILY HISTORY:See Below SOCIAL HISTORY:See Below lives with son. HOME MEDICATIONS:See Below ALLERGIES:See Below VITALS:See Below PHYSICAL EXAMINATION: GENERAL: Awake,extremely anxious-appearing, in moderate distress HENT: Normocephalic, atraumatic. Oropharynx unremarkable. EYES: Normal conjunctiva. Sclera non-icteric. NECK: Inspection normal. Non-tender. Supple. No nuchal rigidity. FROM. No masses. RESPIRATORY: Clear to auscultation. No wheezes. No rales. Normal respiratory effort. CARDIAC: Normal rate. Normal rhythm. No murmurs. No rubs. Extremities warm and well perfused. Pulses equal. No JVD. GI: Soft, non-distended. No tenderness to palpation. No rebound or guarding. No masses. RECTAL: Deferred. MUSCULOSKELETAL: Atraumatic. Chest examination reveals no tenderness. The back is symmetrical on inspection without obvious abnormality. There is no CVA tenderness to palpation. No joint edema. LOWER EXTREMITIES: Calves are equal size bilaterally and non-tender. No edema. No discoloration. NEURO: Normal sensorium. Numbness in the legs. Patient states she can't lift her legs. SKIN: No rash or jaundice noted. Allan Clayton MD Past Med/Surg History Medical History (Updated 04/29/20 @ 02:01 by Allan Clayton MD) Acute dehydration Ambulatory dysfunction Atrial fibrillation Atrial fibrillation with RVR CHF (congestive heart failure) Chronic anticoagulation Chronic fatigue syndrome Chronic, continuous use of opioids History of uterine fibroid Hyponatremia Hypothyroidism Ileus Multinodular goiter Nausea Weakness Surgical History H/O breast augmentation S/P tooth extraction Family History Mother , age 83 with lung cancer and COPD COPD (chronic obstructive pulmonary disease) Lung cancer Father , in 70s of bladder cancer and COPD COPD (chronic obstructive pulmonary disease) Bladder cancer Other Hypertension Social History Smoking Status: Never smoker Second Hand Exposure: No; Hx Alcohol Use: No Hx Substance Use: No Preferred Language: Danish Communication Ability: Effective 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 Feels Safe at Home: Yes Allergies Allergies Allergy/AdvReac Type Severity Reaction Status Date / Time codeine AdvReac Intermediate SEVERE GI Verified 04/28/20 22:15 SYMPTOMS Home Meds Home Medications Medication Instructions Recorded Confirmed Xarelto 20 mg PO DAILY@1600 11/30/18 04/28/20 furosemide 40 mg PO QAM 11/30/18 04/28/20 levothyroxine 112 mcg PO QAM 11/30/18 04/28/20 multivitamin [Multiple Vitamins] 6 tab PO QAM 11/30/18 04/28/20 digoxin 125 mcg (0.125 mg) tablet 125 mcg PO DAILY@1600 07/07/19 04/28/20 diltiazem HCl [Cartia XT] 180 mg PO QAM 12/11/19 04/28/20 lisinopril 40 mg PO QAM 12/11/19 04/28/20 oxycodone-acetaminophen 1 tab PO Q6H PRN 12/11/19 04/28/20 zolpidem 10 mg PO HS 12/11/19 04/28/20 ergocalciferol (vitamin D2) 50,000 unit PO 3XWK 12/16/19 04/28/20 [Vitamin D2] minocycline 200 mg PO BID 01/25/20 04/28/20 gabapentin 100 mg PO TID 04/21/20 04/28/20 prednisone 5 mg PO QAM 04/21/20 04/28/20 benzonatate 100 mg PO TID 04/22/20 04/28/20 carvedilol 25 mg PO BID 04/22/20 04/28/20 gabapentin 300 mg PO TID 04/22/20 04/28/20 pantoprazole 40 mg PO QAM 04/22/20 04/28/20 Results & Data (ED) Vital Signs Vital Signs - 24 hr 04/28/20 17:41 04/28/20 18:01 04/28/20 18:31 Temperature 36.7 C Temperature Source Oral Pulse Rate 88 91 H Pulse Rate [Apical] Pulse Rate from SpO2 Sensor 103 H Respiratory Rate 24 20 Respiratory Effort / Characteristics Spontaneous Respiratory Depth Normal Blood Pressure 111/58 L 133/58 L 100/79 Blood Pressure [Right Arm] Blood Pressure Mean 75 60 81 Blood Pressure Mean [Right Arm] Blood Pressure Position Lying Pulse Oximetry 97 100 Oxygen Delivery Method Room Air Room Air Sepsis Recent Fever Within 48 Hours No Sepsis New/Unexplained Change in Mental Status No Sepsis Action Taken by Nursing No Action Required 04/28/20 19:11 04/28/20 19:32 04/28/20 19:43 Temperature Temperature Source Pulse Rate 90 82 Pulse Rate [Apical] Pulse Rate from SpO2 Sensor Respiratory Rate 20 Respiratory Effort / Characteristics Respiratory Depth Blood Pressure 112/53 L 130/69 Blood Pressure [Right Arm] Blood Pressure Mean 56 97 Blood Pressure Mean [Right Arm] Blood Pressure Position Pulse Oximetry 100 97 Oxygen Delivery Method Room Air Room Air Sepsis Recent Fever Within 48 Hours Sepsis New/Unexplained Change in Mental Status Sepsis Action Taken by Nursing 04/28/20 20:01 04/28/20 21:20 04/28/20 21:30 Temperature Temperature Source Pulse Rate 89 91 H Pulse Rate [Apical] 86 Pulse Rate from SpO2 Sensor 84 Respiratory Rate 24 17 17 Respiratory Effort / Characteristics Respiratory Depth Blood Pressure 113/50 L 130/61 Blood Pressure [Right Arm] 117/64 Blood Pressure Mean 67 99 Blood Pressure Mean [Right Arm] 81 Blood Pressure Position Pulse Oximetry 97 98 Oxygen Delivery Method Room Air Room Air Sepsis Recent Fever Within 48 Hours Sepsis New/Unexplained Change in Mental Status Sepsis Action Taken by Nursing 04/28/20 22:00 04/28/20 22:30 04/28/20 23:20 Temperature Temperature Source Pulse Rate 81 89 Pulse Rate [Apical] 90 Pulse Rate from SpO2 Sensor Respiratory Rate 24 24 18 Respiratory Effort / Characteristics Respiratory Depth Blood Pressure 107/77 126/77 Blood Pressure [Right Arm] 117/75 Blood Pressure Mean 81 99 Blood Pressure Mean [Right Arm] 89 Blood Pressure Position Pulse Oximetry Oxygen Delivery Method Sepsis Recent Fever Within 48 Hours Sepsis New/Unexplained Change in Mental Status Sepsis Action Taken by Nursing 04/29/20 00:00 Temperature Temperature Source Pulse Rate 87 Pulse Rate [Apical] Pulse Rate from SpO2 Sensor Respiratory Rate 18 Respiratory Effort / Characteristics Respiratory Depth Blood Pressure 131/81 Blood Pressure [Right Arm] Blood Pressure Mean 89 Blood Pressure Mean [Right Arm] Blood Pressure Position Pulse Oximetry Oxygen Delivery Method Sepsis Recent Fever Within 48 Hours Sepsis New/Unexplained Change in Mental Status Sepsis Action Taken by Nursing Laboratory Data Result diagrams: 04/28/20 18:50 04/28/20 18:50 Lab Results 04/28/20 04/28/20 04/28/20 Range/Units 18:34 18:50 18:50 WBC 6.81 (4.8-10.8) K/uL RBC 4.06 L (4.2-5.4) M/uL Hgb 13.5 (12.0-16.0) g/dL Hct 38.7 (37-47) % MCV 95.3 (80-100) fL MCH 33.3 (25-34) pg MCHC 34.9 (32-36) g/dL RDW Std Deviation 52.1 H (36.4-46.3) fL RDW Coeff of [place] 15.0 H (11.5-14.5) % Plt Count 264 (130-400) K/uL MPV 10.9 H (7.4-10.4) fL Immature Gran % (Auto) 0.3 % Neut % (Auto) 60.8 % Lymph % (Auto) 27.8 % [place] % (Auto) 10.4 % Eos % (Auto) 0.6 % Baso % (Auto) 0.1 % Neut # (Auto) 4.14 (1.4-6.5) K/uL Lymph # (Auto) 1.89 (1.2-3.4) K/uL [place] # (Auto) 0.71 H (0.11-0.59) K/uL Eos # (Auto) 0.04 (0-0.5) K/uL Baso # (Auto) 0.01 (0-0.2) K/uL Immature Gran # (Auto) 0.02 (0.00-0.02) K/uL ESR 23 H (0-21) mm/hr Sodium (136-145) mmol/L Potassium (3.5-5.1) mmol/L Chloride (98-107) mmol/L Carbon Dioxide (21-32) mmol/L Anion Gap (3-11) BUN (7-18) mg/dl Creatinine (0.6-1.2) mg/dl Est Cr Clr Drug Dosing Est GFR ( Amer) Est GFR (Non-Af Amer) BUN/Creatinine Ratio (10-20) Glucose (70-99) mg/dl Calcium (8.5-10.1) mg/dl Total Bilirubin (0.2-1) mg/dl AST (15-37) U/L ALT (12-78) U/L Alkaline Phosphatase (45-117) U/L C-Reactive Protein (0-0.29) mg/dl Total Protein (6.4-8.2) gm/dl Albumin (3.4-5.0) gm/dl Globulin (2.5-4.0) gm/dl Albumin/Globulin Ratio (0.9-2) Lipase (73-393) U/L Urine Color Yellow Urine Appearance Clear (Clear) Urine pH 7.5 (4.5-7.5) Ur Specific [place] 1.009 (1.000-1.030) Urine Protein Negative (Negative) Urine Glucose (UA) Negative (Negative) Urine Ketones Negative (Negative) Urine Blood Negative (Negative) Urine Nitrite Negative (Negative) Urine Bilirubin Negative (Negative) Urine Urobilinogen Negative (Negative) Ur Leukocyte Esterase 2+ H (Negative) Urine WBC (Auto) 5-10 H (0-5) /hpf Urine RBC (Auto) 0-4 (0-4) /hpf U Hyaline Cast (Auto) 1-5 (0-5) /lpf U Epithel Cells (Auto) 10-20 H (0-5) /lpf Urine Bacteria (Auto) Negative (Negative) 09/05/20 Range/Units 18:50 WBC (4.8-10.8) K/uL RBC (4.2-5.4) M/uL Hgb (12.0-16.0) g/dL Hct (37-47) % MCV (80-100) fL MCH (25-34) pg MCHC (32-36) g/dL RDW Std Deviation (36.4-46.3) fL RDW Coeff of [place] (11.5-14.5) % Plt Count (130-400) K/uL MPV (7.4-10.4) fL Immature Gran % (Auto) % Neut % (Auto) % Lymph % (Auto) % [place] % (Auto) % Eos % (Auto) % Baso % (Auto) % Neut # (Auto) (1.4-6.5) K/uL Lymph # (Auto) (1.2-3.4) K/uL [place] # (Auto) (0.11-0.59) K/uL Eos # (Auto) (0-0.5) K/uL Baso # (Auto) (0-0.2) K/uL Immature Gran # (Auto) (0.00-0.02) K/uL ESR (0-21) mm/hr Sodium 136 (136-145) mmol/L Potassium 3.8 (3.5-5.1) mmol/L Chloride 100 (98-107) mmol/L Carbon Dioxide 25 (21-32) mmol/L Anion Gap 11.0 (3-11) BUN 44 H (7-18) mg/dl Creatinine 1.35 H (0.6-1.2) mg/dl Est Cr Clr Drug Dosing Not Reportable Est GFR ( Amer) 45.3 Est GFR (Non-Af Amer) 39.1 BUN/Creatinine Ratio 32.4 H (10-20) Glucose 86 (70-99) mg/dl Calcium 9.9 (8.5-10.1) mg/dl Total Bilirubin 0.7 (0.2-1) mg/dl AST 28 (15-37) U/L ALT 49 (12-78) U/L Alkaline Phosphatase 109 (45-117) U/L C-Reactive Protein < 0.29 (0-0.29) mg/dl Total Protein 7.9 (6.4-8.2) gm/dl Albumin 3.9 (3.4-5.0) gm/dl Globulin 4.0 (2.5-4.0) gm/dl Albumin/Globulin Ratio 1.0 (0.9-2) Lipase 160 (73-393) U/L Urine Color Urine Appearance (Clear) Urine pH (4.5-7.5) Ur Specific [place] (1.000-1.030) Urine Protein (Negative) Urine Glucose (UA) (Negative) Urine Ketones (Negative) Urine Blood (Negative) Urine Nitrite (Negative) Urine Bilirubin (Negative) Urine Urobilinogen (Negative) Ur Leukocyte Esterase (Negative) Urine WBC (Auto) (0-5) /hpf Urine RBC (Auto) (0-4) /hpf U Hyaline Cast (Auto) (0-5) /lpf U Epithel Cells (Auto) (0-5) /lpf Urine Bacteria (Auto) (Negative) Administered Medications Discontinued Medications Hydromorphone HCl (Hydromorphone Inj 0.5 Mg/0.5 Ml Syr) 0.5 mg IV Q15M PRN PRN Reason: Pain Stop: 05/12/20 18:19 Last Admin: 04/29/20 00:17 Dose: 0.5 mg Documented by: [id number] Admin: 04/28/20 20:07 Dose: 0.5 mg Documented by: [id number] Admin: 04/28/20 19:12 Dose: 0.5 mg Documented by: [id number] Ondansetron HCl (Ondansetron Inj 2 Mg/Ml 2 Ml Vial) 4 mg IV NOW STA Stop: 04/28/20 18:21 Last Admin: 04/28/20 19:12 Dose: 4 mg Documented by: [id number] Discharge Plan Visit Data Chief Complaint: Back Injury/Pain Stated Complaint: BACK PAIN, DIZZINESS, TINGLING IN HANDS, LEGS NUMB ED Provider: Allan Clayton Discharge Problem: Low back pain, Ambulatory dysfunction, Ileus, Spinal stenosis, Acute urinary retention Patient Disposition: Admitted As Inpatient Discharge Instructions Interventions: ED Discharge Assessment Last Done: 04/29/20 00:54
[2020-04-28] MEDS: HYDROmorphone INJ 0.5 MG/0.5 ML SYR IV PRN ×2 (19:12→20:07)
[2020-04-28 19:17] LABS: Basophils # (auto) 0.01 K/uL (0-0.2); Basophils % (auto) 0.1 %; Eosinophils # (auto) 0.04 K/uL (0-0.5); Eosinophils % (auto) 0.6 %; Hematocrit (blood only) 38.7 % (37-47); Hemoglobin 13.5 g/dL (12.0-16.0); Immature Granulocytes # (auto) 0.02 K/uL (0.00-0.02); Immature Granulocytes % (auto) 0.3 %; Lymphocytes # (auto) 1.89 K/uL (1.2-3.4); Lymphocytes % (auto) 27.8 %; Mean Corpuscular Hemoglobin 33.3 pg (25-34); Mean Corpuscular Hgb Conc 34.9 g/dL (32-36); Mean Corpuscular Volume 95.3 fL (80-100); Mean Platelet Volume 10.9 fL (7.4-10.4); Monocytes # (auto) 0.71 K/uL (0.11-0.59); Monocytes % (auto) 10.4 %; Neutrophils # (auto) 4.14 K/uL (1.4-6.5); Neutrophils % (auto) 60.8 %; Platelet Count 264 K/uL (130-400); RDW Standard Deviation 52.1 fL (36.4-46.3); Red Blood Count 4.06 M/uL (4.2-5.4); White Blood Count 6.81 K/uL (4.8-10.8)
[2020-04-28 19:21] LABS: Appearance Urine Clear (Clear); Bacteria Urine Automated Negative (Negative); Bilirubin Urine Negative (Negative); Blood Urine Negative (Negative); Color Urine Yellow; Glucose Urine UA Negative (Negative); Ketones Urine Negative (Negative); Leukocyte Esterase Urine 2+ (Negative); Nitrite Urine Negative (Negative); Protein Urine Negative (Negative); RBC Urine Automated 0-4 /hpf (0-4); Specific Gravity Urine 1.009 (1.000-1.030); Urobilinogen Urine Negative (Negative); pH Urine 7.5 (4.5-7.5)
[2020-04-28 19:34] LABS: Alanine Aminotransferase 49 U/L (12-78); Albumin Level 3.9 gm/dl (3.4-5.0); Aspartate Aminotransferase 28 U/L (15-37); BUN Creatinine Ratio 32.4 (10-20); Blood Urea Nitrogen 44 mg/dl (7-18); Calcium 9.9 mg/dl (8.5-10.1); Carbon Dioxide 25 mmol/L (21-32); Chloride 100 mmol/L (98-107); Est GFR (African American) 45.3; Est GFR (Non-African American) 39.1; Glucose 86 mg/dl (70-99); Lipase 160 U/L (73-393); Potassium 3.8 mmol/L (3.5-5.1); Sodium 136 mmol/L (136-145)
[2020-04-28 19:37] LABS: Alkaline Phosphatase 109 U/L (45-117); Bilirubin,Total 0.7 mg/dl (0.2-1); C Reactive Protein < 0.29 mg/dl (0-0.29); Total Protein 7.9 gm/dl (6.4-8.2)
--- NOTE | 2020-04-28 20:08 | CT Scan Report ---
ABDOMEN AND PELVIS CT WITHOUT CONTRAST CT DOSE: 956.24 mGy.cm HISTORY: Generalized abdominal pain. Distention. TECHNIQUE: Multiaxial CT images of the abdomen and pelvis were performed without contrast. A dose lo wering technique was utilized adhering to the principles of ALARA. COMPARISON STUDY: Abdomen and pelvis CT 04/22/2020. FINDINGS: The lung bases are clear. No pneumoperitoneum. No pneumatosis. No fractures within the visu alized osseous structures. The unenhanced liver, gallbladder, spleen, and pancreas are unremarkable. Stable bilateral adrenal gland nodules which likely represent benign adenomas. A 6 mm exophytic lesio n within the upper pole the left kidney on image 75. This is indeterminate on this noncontrast study. No renal or ureteral stones. No hydronephrosis. The bladder is decompressed by Sheridan catheter. The u terus and bilateral adnexa are within normal limits. Mild pelvic floor collapse. Suboptimal evaluatio n for bowel pathology due to the lack of intravenous and oral contrast. However, there is no definite bowel wall thickening. Normal appendix. A few mildly dilated gas and fluid-filled loops of small bow el within the abdomen anteriorly. No transition point identified. This favors a mild ileus. No retrop eritoneal lymphadenopathy. Normal caliber abdominal aorta. IMPRESSION: 1. A few mildly dilated gas and fluid-filled loops of small bowel within the midabdomen anteriorly. N o clear transition point to suggest a small bowel obstruction. Therefore, this favors a mild ileus. A low-grade partial small bowel obstruction could also have a similar appearance but is considered les s likely. Follow-up recommended the patient symptoms continue to progress. 2. Normal appendix. 3. No renal stones or hydronephrosis. 4. A 6 mm exophytic lesion within the upper pole of the left kidney. This is indeterminate on this no ncontrast study. This could represent a small cyst or renal mass. Consider follow-up nonemergent rosa l ultrasound for further evaluation. ACT 112: Negative or not required by law. Electronically signed by: Anthony Rosenbaum M.D. 04/28/2020 8:07 PM
[2020-04-29] MEDS: HYDROmorphone INJ 0.5 MG/0.5 ML SYR IV PRN (00:17)
--- NOTE | 2020-04-29 01:00 | History & Physical Report ---
Date of Service April 29, 2020 Assessment & Plan (1) Low back pain: Mrs. Ford is a 74 yo woman with a PMHx of lumbar spinal stenosis and bilateral lumbar neuroforaminal stenosis who presents with acute worsening of low back pain after discontinuing her Percocet. She endorses associated bilateral lower extremity weakness, numbness and urinary retention. - patient with known lumbar spine disease. increase in discomfort likely related to recent discontinuation of narcotic without replacement analgesia - given associated "red flag" signs, must rule out cauda equina syndrome - lumbar spine MRI showing no evidence per STAT RAD, await official read - neuro checks q4hr to continue to monitor for signs of progression - despite patient's description of bilateral lower extremity weakness and numbness, on exam she is sensate to gross touch and can move her legs - as for analgesia, will continue gabapentin 300mg, TID + 100mg prn, we will add scheduled Tylenol. Ideally would avoid narcotic medication if possible given co- existent ileus vs mild SBO. Similar, would like to avoid NSAIDs given co- existent POPPY. Can consider IV steroids for analgesia if pain control is not achieved with the above. - pain management consulted (2) Ileus: - etiology likely secondary to chronic narcotic use - patient reports diminished appetite over past 24 hrs - did pass BM today - normoactive BS on exam - A/P CT scan showing no discrete transition point, but dilated loops of bowel consistent with an ileus vs. mild SBO - clear liquid diet, advance as tolerated - consider relistor if narcotics are necessary for back pain control - zorfran prn for associated nausea - serial exams (3) Elevated serum creatinine: - Cr 1.35 on admission. Was 1.09 on 04/23 - likely secondary to dimished PO intake over past day - 500 cc bolus of normal saline + maintenace fluids - repeat BMP in AM (4) Afib: - Anticoagulated, rate controlled. - Continue Carvedilol 25mg po BID -Continue Digoxin. Level was subtherapeutic on 04/21/20 at 0.5. -Continue Diltiazem 180mg po qAM -Continue Rivaroxaban (5) Hypothyroidism: continue home dose of levothyroxine (6) Left kidney mass: - A 6 mm exophytic lesion within the upper pole of the left kidney noted incidentally on A/P CT scan. - Consider follow-up nonemergent renal ultrasound for further evaluation. (7) Chronic systolic CHF (congestive heart failure): - does not appear to be volume overloaded on exam - Continue home dose Carvedilol and Lasix - hold home lisinopril in setting of POPPY (8) Bronchiectasis: Chronic. Stable. No SOB/Cough/O2 required at this time -Continue Prednisone 5mg po qAM -Continue Tessalon 100mg po TID -Continue Keflex Diet: Clear liquid, advance as tolerated DVT ppx: on Rivaroxaban Dispo: Med/Surg Code: DNR/DNI History of Present Illness Primary Care Provider: Qasim Rangel MD Mrs. Ford is a 74 yo woman with a PMHx of lumbar spinal stenosis here today for acute worsening of her chronic low back pain. Of particular concern, she endorses associated bilateral lower extremity numbness, weakness, and urinary retention. She says she has not had anything to eat or drink for 1 day, which she attributes to diminished appetite. However, she has passed a bowel movement earlier today, denying any bladder or bowel incontinence. Of note, she was admitted on 04/23/20 for worsening of her low back pain as she was trying to wean herself off of her usual pain medication regimen, which consists of Percocet q6h and gabapentin 300mg, TID + 100mg Prn. Mrs. Ford believes she is suffering from a "toxicity" related to the Percocet, and had cut down her dose from 4 tablets to 2, and finally to 0 yesterday. However, she was not replacing the Percocet with another analgesic modality. She took 1 Percocet today when her pain level became unbearable. She has been working with her PCP to manage her back pain - she has been referred to see Dr. Johnson at [facility], but she has not yet had her appointment. ED course: Vitals were stable. CBC normal. Creatinine increased to 1.35. Electrolytes WNL. ESR mildly elevated to 23, CRP normal. UA 2+ LE, 5-10 WBCs, neg bacteria, neg nitrites. MRI of Lumbar spine showing: No fracture. Mild degenerative disc disease at L4-5 where there is a grade 1 anterolisthesis with ligamentous and facet hypertrophy causing moderate to severe spinal canal and bilateral neuroforaminal stenosis per STAT RAD report. A/P CT scan showing evidence of an ileus vs. mild SBO (no transition point). Patient was given 1 dose of zofran 4mg, IV and 2 doses of hydromorphone 0.5mg, IV for pain. Allergies Allergy/AdvReac Type Severity Reaction Status Date / Time codeine AdvReac Intermediate SEVERE GI Verified 04/28/20 22:15 SYMPTOMS Home Medications Home Medications Medication Instructions Recorded Confirmed Type Xarelto 20 mg PO DAILY@1600 11/30/18 04/28/20 History furosemide 40 mg PO QAM 11/30/18 04/28/20 History levothyroxine 112 mcg PO QAM 11/30/18 04/28/20 History multivitamin [Multiple Vitamins] 6 tab PO QAM 11/30/18 04/28/20 History digoxin 125 mcg (0.125 mg) tablet 125 mcg PO DAILY@1600 07/07/19 04/28/20 History diltiazem HCl [Cartia XT] 180 mg PO QAM 12/11/19 04/28/20 History lisinopril 40 mg PO QAM 12/11/19 04/28/20 History oxycodone-acetaminophen 1 tab PO Q6H PRN 12/11/19 04/28/20 History zolpidem 10 mg PO HS 12/11/19 04/28/20 History ergocalciferol (vitamin D2) 50,000 unit PO 3XWK 12/16/19 04/28/20 History [Vitamin D2] minocycline 200 mg PO BID 01/25/20 04/28/20 History gabapentin 100 mg PO TID 04/21/20 04/28/20 History prednisone 5 mg PO QAM 04/21/20 04/28/20 History benzonatate 100 mg PO TID 04/22/20 04/28/20 History carvedilol 25 mg PO BID 04/22/20 04/28/20 History gabapentin 300 mg PO TID 04/22/20 04/28/20 History pantoprazole 40 mg PO QAM 04/22/20 04/28/20 History Past Med/Surg History Medical History (Updated 04/29/20 @ 02:01 by Allan Clayton MD) Acute dehydration Ambulatory dysfunction Atrial fibrillation Atrial fibrillation with RVR CHF (congestive heart failure) Chronic anticoagulation Chronic fatigue syndrome Chronic, continuous use of opioids History of uterine fibroid Hyponatremia Hypothyroidism Ileus Multinodular goiter Nausea Weakness Surgical History H/O breast augmentation S/P tooth extraction Family History Mother , age 83 with lung cancer and COPD COPD (chronic obstructive pulmonary disease) Lung cancer Father , in 70s of bladder cancer and COPD COPD (chronic obstructive pulmonary disease) Bladder cancer Other Hypertension Social History Smoking Status: Never smoker Second Hand Exposure: No; Hx Alcohol Use: No Hx Substance Use: No Preferred Language: [place]ese Communication Ability: Effective Kelly Machine Operator Required: No Beliefs That Will Affect Care: None marital status: Single Current Living Situation: Family Current Living Situation Comment: living with sonJosue current occupational status: retired and disabled Other Information That Helps Us Care for You: No other: Disabled in her 50s. 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 Feels Safe at Home: Yes Safety Concerns: Feels Safe At This Time Review of Systems Gastrointestinal: + abdominal pain, + bloating and + nausea; no vomiting Genitourinary: no urinary incontinence + urinary retention Musculoskeletal: + bilateral lower extremity weakness Neurologic: + numbness (bilateral legs) Physical Exam Constitutional: WD/WN, vitals as above no acute distress Eyes: + anicteric sclerae ENMT: external ear and nose normal, oropharynx normal Neck: normal visual inspection and trachea midline Respiratory: normal respiratory effort, lungs clear to auscultation Cardiovascular: Rate/Rhythm: + irregularly irregular Heart Sounds: normal S1 and normal S2 Gastrointestinal (Abdomen): Inspection/Auscultation: + abdomen distended and normal bowel sounds Percussion/Palpation: + abdomen tender (throughout) and abdomen soft; no guarding and no hepatosplenomegaly Musculoskeletal: patient refused back exam. Patient was sensate to gross touch in saddle region and bilateral lower extremities. She had +2 patellar and ankle jerk reflexes bilaterally. 4/5 strength with ankle dorsiflexion and plantar flexion. 4/5 strength with knee flexion and hip flexion. Skin: + silvery appearance to face Neurologic: moves all extremities; not confused Psychiatric: A+Ox3, euthymic affect Genitourinary: Sheridan catheter in place, draining yellow urine Results & Data Results & Data ([facility]) Vital Signs (Past 12 Hours) Vital Signs Temp Pulse Pulse Resp BP BP Pulse Ox 04/29/20 00:30 74 18 118/70 96 04/29/20 00:00 87 18 131/81 04/28/20 23:20 90 18 117/75 04/28/20 22:30 89 24 126/77 04/28/20 22:00 81 24 107/77 04/28/20 21:30 91 H 17 130/61 98 04/28/20 21:20 86 17 117/64 97 04/28/20 20:01 89 24 113/50 L 04/28/20 19:43 82 20 130/69 04/28/20 19:32 90 112/53 L 97 04/28/20 19:11 100 04/28/20 18:31 91 H 20 100/79 100 04/28/20 18:01 133/58 L 04/28/20 17:41 36.7 C 88 24 111/58 L 97 Supervising Physician Co-Signing Physician Notes Attending addendum: I have physically seen this patient, have supervised the medical residents activities, and agree with the H&P unless as otherwise noted. Assessment and Plan: Intractable low back pain/lumbar degenerative disc disease/moderate spinal s tenosis and bilateral foraminal stenosis at L4-5-- Admit to medical surgical floor Neurochecks every 4 hours Recent flareup secondary to tapering and discontinuance of Percocet. Continue gabapentin 300 mg p.o. 3 times daily and at 100 mg p.o. as needed. Considerations include IV Decadron and K pad Consult pain management service Ileus- Likely secondary to narcotic medications. Conservative treatment with IV fluids and antiemetics. Should consider Relistor/Movantik, in particular if narcotics are resumed again Remainder of orders and notations as noted. Resident Activity Tracking Resident Involvement: Resident Care Provided Care Provided: Adult Hospital Medicine
[2020-04-29] MEDS ORDERED: SODIUM CHLORIDE 0.9% 1000ML 500 ML IV ONE (01:49)
[2020-04-29] MEDS ORDERED: OXYCODONE/ACETAMINOPHEN 5mg/325mg TAB PO PRN (01:49)
[2020-04-29] MEDS ORDERED: ALUMINUM/MAGNESIUM SUSP 30 ML UDC PO PRN (01:49)
[2020-04-29] MEDS ORDERED: MAGNESIUM HYDROXIDE SUSP 30 ML UDC PO PRN (01:49)
[2020-04-29] MEDS ORDERED: SODIUM CHLORIDE 0.9% 1,000 ML IV SCH (01:49)
[2020-04-29] MEDS ORDERED: POLYETHYLENE (MIRALAX) 17 GM PACK PO PRN (01:49)
[2020-04-29] MEDS: LEVOTHYROXINE SODIUM 112 MCG TABLET PO SCH (05:56)
[2020-04-29] MEDS: ACETAMINOPHEN 325 MG TAB PO SCH ×3 (05:56→17:15)
[2020-04-29 08:17] LABS: BUN Creatinine Ratio 28.5 (10-20); Calcium 9.2 mg/dl (8.5-10.1); Creatinine Clr Calc Pharmacy 49.3 ml/min; Est GFR (African American) 52.3; Est GFR (Non-African American) 45.1; Potassium 3.8 mmol/L (3.5-5.1)
[2020-04-29] MEDS: ONDANSETRON INJ 2 MG/ML 2 ML VIAL IV PRN ×2 (08:46→15:30)
--- NOTE | 2020-04-29 08:46 | Magnetic Resonance Report ---
MR lumbar spine wo con CLINICAL HISTORY: 74 years-old Female with urinary retention, severe low back pain. Acute low back p ain with urinary retention COMPARISON: CT abdomen and pelvis of same day TECHNIQUE: Multiplanar, multi sequence MRI of the lumbar spine was performed without intravenous cont rast. FINDINGS: Commission Associate localizer images demonstrate no gross extraspinal abnormality. No aortic aneurysm. Moderate atr ophy of the paraspinal musculature. No acute fracture, subluxation, significant bone marrow or soft t issue edema. There is mild edema surrounding the right-sided facets at L3-L4, likely on a degenerativ e basis. 4 mm anterolisthesis L4 on L5. T12-L1: Mild spondylitic spurring and moderate facet arthrosis. No central canal or foraminal narrow ing. L1-L2: Mild spondylitic spurring with small posterior annular disc bulge. Moderate facet arthrosis w ith ligamentum flavum thickening and trace facet effusions. No central canal or foraminal narrowing. L2-L3: Mild disc space narrowing with spondylitic spurring, tiny posterior annular disc bulge, moder ate facet arthrosis with ligamentum flavum thickening and trace right facet effusion. Central canal a nd right neuroforamen are patent. There is mild inferior left foraminal narrowing. L3-L4: Mild disc space narrowing with spondylitic spurring, ligamentum flavum thickening with severe facet arthrosis and trace facet effusions. Tiny posterior annular disc bulge results in mild foramin al stenosis bilaterally. Central canal is patent. L4-L5: Grade 1 anterolisthesis. Remote appearing Schmorl's node of the superior endplate L5. Small c ircumferential annular disc bulge. Ligamentum flavum thickening with severe facet arthrosis and small bilateral facet effusions. AP dimension of the thecal sac measures 6 mm. Mild to moderate right and mild left foraminal narrowing. L5-S1: Tiny posterior annular disc bulge with mild spondylitic spurring. Severe facet arthrosis with ligamentum flavum thickening. No central canal or foraminal narrowing. IMPRESSION: 1. No acute fracture or subluxation. 2. Severe multilevel facet arthrosis. Grade 1 anterolisthesis L4 on L5 is likely secondary to long-st anding facet disease. 3. At L4-L5 there is moderate to severe central canal stenosis with mild left foraminal narrowing. 4. Multilevel discogenic degeneration as above. ACT 112: Negative or not required by law. The above report was generated using voice recognition software. It may contain grammatical, syntax o r spelling errors. Electronically signed by: Sree Sr M.D. 04/29/2020 8:44 AM
[2020-04-29] MEDS ORDERED: lisinopriL 40 MG TAB PO SCH (09:00)
[2020-04-29] MEDS: FUROSEMIDE 40 MG TAB PO SCH (09:05)
[2020-04-29] MEDS: carvediloL 25 MG TAB PO SCH ×2 (09:05→17:16)
[2020-04-29] MEDS: MULTIVITAMIN TAB PO SCH (09:05)
[2020-04-29] MEDS: dilTIAZem HCL 180 MG CAPCR PO SCH (09:06)
[2020-04-29] MEDS: BENZONATATE 100 MG CAPSULE PO SCH ×3 (09:06→20:21)
[2020-04-29] MEDS: PANTOprazole 40 MG TAB PO SCH (09:07)
[2020-04-29] MEDS: predniSONE 5 MG TAB PO SCH (09:07)
[2020-04-29] MEDS: GABAPENTIN 300 MG CAP PO SCH ×3 (09:12→20:21)
[2020-04-29] MEDS: GABAPENTIN 100 MG CAP PO SCH ×3 (09:12→20:21)
[2020-04-29] MEDS ORDERED: DEXAMETHASONE SOD INJ 10 MG/ML VIAL IV ONE (11:43)
[2020-04-29] MEDS ORDERED: MoRPHine SULFATE 2 MG/ML CARP IV STA ×2 (11:43→20:14)
[2020-04-29] MEDS ORDERED: DEXAMETHASONE SOD PHOSPHATE 4 MG in SYRINGE 0 ML IV ONE (12:00)
[2020-04-29] MEDS: RIVAROXABAN 20 MG TAB PO SCH (15:31)
[2020-04-29] MEDS: DIGOXIN 0.125 MG TAB PO SCH (15:33)
[2020-04-29] MEDS: ZOLPIDEM TARTRATE 10 MG TAB PO SCH (22:24)
[2020-04-30] MEDS: ACETAMINOPHEN 325 MG TAB PO SCH ×5 (00:48→23:59)
--- NOTE | 2020-04-30 03:45 | Billing Data ---
Date of Service April 30, 2020 Coding Level of Care Code 46135 OBS Care - Level 3
[2020-04-30] MEDS: LEVOTHYROXINE SODIUM 112 MCG TABLET PO SCH (05:31)
--- NOTE | 2020-04-30 06:19 | Electrocardiogram Report ---
Test Reason : Blood Pressure : / mmHG Vent. Rate : 097 BPM Atrial Rate : 075 BPM P-R Int : 000 ms QRS Dur : 092 ms QT Int : 358 ms P-R-T Axes : 000 -49 245 degrees QTc Int : 454 ms Atrial fibrillation with premature ventricular or aberrantly conducted complexes Left axis deviation Low voltage QRS Inferior infarct , age undetermined Nonspecific ST abnormality Abnormal ECG When compared with ECG of 22-APR-2020 19:56, Inferior infarct is now Present Nonspecific T wave abnormality, improved in Anterolateral leads Confirmed by Abbe Shah ([id number]) on 04/30/2020 6:19:05 AM Referred By: REFERRED SELF Confirmed By:Abbe Shah
--- NOTE | 2020-04-30 08:33 | Hospitalist Progress Note ---
Date of Service April 30, 2020 Assessment & Plan (1) Low back pain: Mrs. Ford is a 74 yo woman with a PMHx of lumbar spinal stenosis and bilateral lumbar neuroforaminal stenosis who presents with acute worsening of low back pain after discontinuing her Percocet. She endorses associated bilateral lower extremity weakness, numbness and urinary retention. MRI 04/29/20 IMPRESSION: 1. No acute fracture or subluxation. 2. Severe multilevel facet arthrosis. Grade 1 anterolisthesis L4 on L5 is likely secondary to long-standing facet disease. 3. At L4-L5 there is moderate to severe central canal stenosis with mild left foraminal narrowing. scheduled Tylenol and celebrex, added nucynta as pt is convinced that oxycodone makes her sick. pain management consult in am (2) Ileus: - etiology likely secondary to chronic narcotic use - Abdomen/Pelvis CT scan showing no discrete transition point, but dilated loops of bowel consistent with an ileus vs. mild SBO toleratin advanced diet and pt claims to have stool production (3) Elevated serum creatinine: -improved nieves resolved (4) Afib: - Anticoagulated, rate controlled. - Continue Carvedilol 25mg po BID -Continue Digoxin. Level was subtherapeutic on 04/21/20 at 0.5. -Continue Diltiazem 180mg po qAM -Continue Rivaroxaban (5) Hypothyroidism: remains on po levothyroxine (6) Left kidney mass: - A 6 mm exophytic lesion within the upper pole of the left kidney noted incidentally on A/P CT scan. - Consider follow-up nonemergent renal ultrasound for further evaluation. (7) Chronic systolic CHF (congestive heart failure): euvolemic on Carvedilol and Lasix - hold home lisinopril (8) Bronchiectasis: will hold Prednisone 5mg po qAM, as will be on hydrocortisone for back pain and radicualar symptoms for 1 day then resume po prednisone -Continue Tessalon 100mg po TID plus Keflex DVT ppx: on Rivaroxaban Code: DNR/DNI Admission and Anticipated Discharge Date Admission Date: April 29, 2020 Subjective This patient has multiple somatic complaints today focusing around her headache inflammation asked him for opiates by name preferring oxycodone requesting parenteral opiates stating that her radicular back pain is relieved by these and she she says she was experiencing some symptoms of nausea which she was attributing to her oxycodone and gabapentin. She has never seen pain management nor orthopedics for her back discomfort Review of Systems Review of Systems: Mild distress and fatigue Setting frontal headache and blurry vision when headache worsens no speech or swallowing issues no chest pain, pressure or palpitations no shortness of breath, cough or wheezes no abdominal pain, nausea or vomiting, diarrhea or constipation no dysuria, hematuria or frequency no focal joint pain or swelling Left-sided back pain rating down her leg worsened with movement no loss of sensation no bruising, bleeding or rashes no focal signs of weakness or numbness or altered sensation no complaints or anxiety or depression. Physical Exam Physical Exam: The patient appeared well nourished and normally developed. Vital signs as documented. Head exam is normocephalic atraumatic no scleral icterus Neck is without JVD, thyromegaly, or carotid bruits. Lungs are clear to auscultation, no focal loss of breath sounds Cardiac exam, Rhythm is regular.. No murmurs, rubs or gallops. Abdominal exam reveals normal bowel sounds, soft non tender, no masses Extremities are nonedematous and after medication with toradol has negative slr at bedside Neurologic exam is alert and oriented, no focal loss of strength or sensation Skin is without bruises or rashes Psychologically is without concerns for anxiety or depression. Results & Data Results & Data ([facility]) Vital Signs (Past 12 Hours) Vital Signs Temp Pulse Resp BP Pulse Ox 04/30/20 07:22 98.2 F 103 H 18 128/77 95 04/29/20 23:09 98.4 F 90 20 128/64 100 PG Care Time/CCT Total # of Minutes Spent Total Time Spent with Patient: Total time spent is greater than 50% in coordination of care (as documented) at patient's floor/unit and/or counseling patient: Coding Level of Care Code 73250 Subseq Hosp Care Lvl 3 Diagnoses Low back pain M54.5 Ileus K56.7 Elevated serum creatinine R79.89 Afib I48.91 Hypothyroidism E03.9 Left kidney mass N28.89 Chronic systolic CHF (congestive heart failure) I50.22 Bronchiectasis J47.9
[2020-04-30] MEDS: GABAPENTIN 300 MG CAP PO SCH ×3 (08:54→20:17)
[2020-04-30] MEDS: PANTOprazole 40 MG TAB PO SCH (08:54)
[2020-04-30] MEDS: GABAPENTIN 100 MG CAP PO SCH ×3 (08:54→20:16)
[2020-04-30] MEDS: carvediloL 25 MG TAB PO SCH ×2 (08:54→16:46)
[2020-04-30] MEDS: FUROSEMIDE 40 MG TAB PO SCH (08:54)
[2020-04-30] MEDS: BENZONATATE 100 MG CAPSULE PO SCH ×3 (08:54→20:18)
[2020-04-30] MEDS: predniSONE 5 MG TAB PO SCH (08:55)
[2020-04-30] MEDS: dilTIAZem HCL 180 MG CAPCR PO SCH (08:55)
[2020-04-30] MEDS ORDERED: ERGOCALCIFEROL 50,000 UNITS CAP PO SCH (09:00)
[2020-04-30] MEDS ORDERED: KETOROLAC TROMETHAMINE 15 MG/ML VIAL IV ONE ×2 (09:45→14:50)
[2020-04-30] MEDS: MULTIVITAMIN TAB PO SCH (10:59)
[2020-04-30] MEDS: TAPENTADOL HCL 50 MG TAB PO PRN ×2 (13:31→19:44)
[2020-04-30] MEDS: DIGOXIN 0.125 MG TAB PO SCH (15:49)
[2020-04-30] MEDS: RIVAROXABAN 20 MG TAB PO SCH (15:50)
[2020-04-30] MEDS: ZOLPIDEM TARTRATE 10 MG TAB PO SCH (20:14)
[2020-04-30] MEDS: CELECOXIB 100 MG CAP PO SCH (20:17)
[2020-04-30] MEDS: HYDROCORTISONE SOD 50 MG in SYRINGE 0 ML IV SCH (20:40)
[2020-05-01] MEDS: ACETAMINOPHEN 325 MG TAB PO SCH ×3 (05:56→17:38)
[2020-05-01] MEDS: LEVOTHYROXINE SODIUM 112 MCG TABLET PO SCH (05:57)
[2020-05-01] MEDS ORDERED: TRAMADOL HCL 50 MG TABLET PO PRN ×2 (07:58→09:52)
[2020-05-01] MEDS: GABAPENTIN 100 MG CAP PO SCH ×2 (08:25→13:49)
[2020-05-01] MEDS: FUROSEMIDE 40 MG TAB PO SCH (08:25)
[2020-05-01] MEDS: carvediloL 25 MG TAB PO SCH ×2 (08:25→16:29)
[2020-05-01] MEDS: HYDROCORTISONE SOD 50 MG in SYRINGE 0 ML IV SCH ×2 (08:25→13:49)
[2020-05-01] MEDS: GABAPENTIN 300 MG CAP PO SCH ×2 (08:25→13:49)
[2020-05-01] MEDS: BENZONATATE 100 MG CAPSULE PO SCH ×2 (08:25→13:48)
[2020-05-01] MEDS: dilTIAZem HCL 180 MG CAPCR PO SCH (08:26)
[2020-05-01] MEDS: CELECOXIB 100 MG CAP PO SCH (08:26)
[2020-05-01] MEDS: PANTOprazole 40 MG TAB PO SCH (08:26)
[2020-05-01] MEDS: MULTIVITAMIN TAB PO SCH (08:26)
--- NOTE | 2020-05-01 08:26 | Pain Management Consultation ---
Date of Consultation May 01, 2020 Assessment & Plan (1) Spinal stenosis: Present on Admission?: Yes (2) Lumbar facet joint syndrome: * Patient has MRI evidence of lumbar spinal canal stenosis which is multilevel multifactorial most prominent L4-5 as well as evidence of lumbar facet arthrosis at multiple levels with predominant complaint of axial low back pain likely byproduct of her lumbar facet syndrome. Patient's recent complaints potentially related to opiate withdrawal upon admission as she has been opiate dependent over the past 1 year with fairly abrupt discontinuation of her opiate therapies. We discussed judicious use of analgesic regimen moving forward. She will soon be evaluated for interventional treatment by [facility]. The patient would be candidate for intra-articular facet joint injection, medial branch block versus lumbar ANDREE in the outpatient setting. Would not recommend any acute interventional treatment given improved pain control and her chronic anticoagulation therapy. * Will transition the patient from Nucynta to tramadol to assess efficacy and tolerability due to concerns over ability to obtain Nucynta upon discharge due to cost. Will initiate tramadol 50 mg every 4 hours PRN for breakthrough pain. We discussed the importance of utilization of as needed breakthrough pain medication as opposed to scheduled pain medication moving forward and she verbalized understanding. * Maintain gabapentin dose without change at 400 mg 3 times daily Present on Admission?: Yes (3) Chronic anticoagulation: Present on Admission?: Yes (4) Ileus: * Improved with diminished opiate dependence. Assess response to initiation of tramadol. Present on Admission?: Yes (5) Left kidney mass: * Outpatient follow-up with consideration of renal ultrasound has been discussed by hospitalist team History of Present Illness Reason for Consultation: Intractable low back pain Requesting Physician: Yolanda Grande MD Attending Physician: João Peralta MD History of Present Illness Mrs. Ford is a 74-year-old white female admitted on 04/30/2020 for evaluation of acute on chronic axial low back pain. The patient reports history of chronic low back pain left greater than right-sided traveling into the left gluteal and thigh region. She reportedly discontinued her opiate therapy on her own last week due to the medication "making her toxic". She reported difficulties with n ausea, lightheadedness and dizziness which she felt was a byproduct of her opiate pain medication. Discontinuation of the opiate therapy significantly increased her axial pain which led to emergency department evaluation and admission to the hospital due to her increased pain complaints and complaints of weakness, numbness and urinary retention. Up-to-date imaging was completed which revealed no evidence of acute findings. Patient reports that her pain is 80% axial in the lumbosacral region left greater than right-sided and 20% in the left leg traveling to level the knee posterior lateral. Her pain is increased with sitting, standing and ambulating. She is not currently experiencing wea knesses. Her pain is minimal at a 2/10 today but can escalate to an 8/10. She reported benefit from utilization of Nucynta therapy upon this admission with tolerability. She has been referred for orthopedic evaluation later this month at [facility]. Patient reports bowel movement yesterday. She denies bowel or bladder incontinence or saddle anesthesias. She is no longer experiencing lower extremity weakness or numbness. She has been out of the bed to the bathroom without complication. She denies abdominal pain. Patient is not currently experiencing nausea. She denies any further constitutional complaints at this time. Plan of care discussed with Dr. Leigha Stallings. Pain Assessment Full Body Front + Back: 1. Axial lumbosacral spine left greater than right-sided 2. Left posterior lateral thigh pain Pain scale - at its best (0-10): 2 Pain scale - at its worst (0-10): 8 Allergies Allergy/AdvReac Type Severity Reaction Status Date / Time codeine AdvReac Intermediate SEVERE GI Verified 04/28/20 22:15 SYMPTOMS Home Medications Home Medications Medication Instructions Recorded Confirmed Type Xarelto 20 mg PO DAILY@1600 11/30/18 04/28/20 History furosemide 40 mg PO QAM 11/30/18 04/28/20 History levothyroxine 112 mcg PO QAM 11/30/18 04/28/20 History multivitamin [Multiple Vitamins] 6 tab PO QAM 11/30/18 04/28/20 History digoxin 125 mcg (0.125 mg) tablet 125 mcg PO DAILY@1600 07/07/19 04/28/20 History diltiazem HCl [Cartia XT] 180 mg PO QAM 12/11/19 04/28/20 History lisinopril 40 mg PO QAM 12/11/19 04/28/20 History oxycodone-acetaminophen 1 tab PO Q6H PRN 12/11/19 04/28/20 History zolpidem 10 mg PO HS 12/11/19 04/28/20 History ergocalciferol (vitamin D2) 50,000 unit PO 3XWK 12/16/19 04/28/20 History [Vitamin D2] minocycline 200 mg PO BID 01/25/20 04/28/20 History gabapentin 100 mg PO TID 04/21/20 04/28/20 History prednisone 5 mg PO QAM 04/21/20 04/28/20 History benzonatate 100 mg PO TID 04/22/20 04/28/20 History carvedilol 25 mg PO BID 04/22/20 04/28/20 History gabapentin 300 mg PO TID 04/22/20 04/28/20 History pantoprazole 40 mg PO QAM 04/22/20 04/28/20 History Pain History Pain Intensity Pain scale - at its best (0-10): 2 Pain scale - at its worst (0-10): 8 Patient History Medical History (Updated 05/01/20 @ 08:37 by Brannon Alicia PA-C) Acute dehydration Ambulatory dysfunction Atrial fibrillation Atrial fibrillation with RVR CHF (congestive heart failure) Chronic anticoagulation Chronic fatigue syndrome Chronic, continuous use of opioids History of uterine fibroid Hyponatremia Hypothyroidism Ileus Lumbar facet joint syndrome Multinodular goiter Nausea Weakness Surgical History H/O breast augmentation S/P tooth extraction Family History Mother , age 83 with lung cancer and COPD COPD (chronic obstructive pulmonary disease) Lung cancer Father , in 70s of bladder cancer and COPD COPD (chronic obstructive pulmonary disease) Bladder cancer Other Hypertension Social History Smoking Status: Never smoker Second Hand Exposure: No; Hx Alcohol Use: No Hx Substance Use: No Preferred Language: Divehi Communication Ability: Effective 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 Speech and thought process appropriate. Mood and affect appropriate. Cognition intact. Patient has rambling speech. Patient was witnessed ambulating from the bathroom to her bed without complication and "flopping on the bed" upon sitting down with no obvious discomfort. Head: Normocephalic and atraumatic. ENT: No evidence of nasal or oral mucosal lesions. Mucous membranes are moist. Eyes: Pupils equal round reactive to light. Neck: Supple without adenopathy and full range of motion. Chest: Nontender to palpation of the costosternal junction. Abdomen: Soft and nondistended. No organomegaly. Bowel sounds active. Back/spine: Loss of lumbar lordosis. Moderately tender at the lumbosacral junction over the midline. Patient tender to evocative testing of the lumbar facet joint at the L4-S1 level bilaterally left greater than right-sided. Patient moderately tender to evocative testing of the SI joint bilaterally left greater than right-sided. Facet load-bearing test equivocal in the left and negative on the right. Patient tender throughout the left gluteal region upon direct palpation without evidence of spasm or myoneural trigger points. Lower extremities: SLR negative bilaterally. Ata maneuver negative bilaterally. Sensation intact without focal deficit. Strength testing 5/5 and equal without deficit. 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 Neurologic: Cranial nerves grossly intact. Ambulatory function normal without limitation. Results (Pain Clinic) Diagnostic Review MRI: non enhanced and reports reviewed MRI Findings: [place], [place] [phone] Magnetic Resonance Report Patient: GARFIELD FORD Date: 04/29/20 MR#: [id number]: [address] Acct ID:[id number]: Date: 1945City Zip: [place] [address] Age: 74Location: 2W Sex: FRoom/Bed: W262-1 Att Phy: Raffi Moyer D.O.Diagnosis: LOW BACK PAIN Lauren Phy: Qasim Rangel, MDService Date: 04/28/20 Fam Phy:Interpreting Phy: Jamel Sr Admit Phy: Kavon Mixon M.D. Ordering Phy: Allan Clayton MD cc: ~ MR lumbar spine wo con CLINICAL HISTORY: 74 years-old Female with urinary retention, severe low back pain. Acute low back pain with urinary retention COMPARISON: CT abdomen and pelvis of same day TECHNIQUE: Multiplanar, multi sequence MRI of the lumbar spine was performed without intravenous contrast. 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 No aortic aneurysm. Moderate atrophy of the paraspinal musculature. No acute fracture, subluxation, significant bone marrow or soft tissue edema. There is mild edema surrounding the right-sided facets at L3-L4, likely on a degenerative basis. 4 mm anterolisthesis L4 on L5. T12-L1: Mild spondylitic spurring and moderate facet arthrosis. No central canal or foraminal narrowing. L1-L2: Mild spondylitic spurring with small posterior annular disc bulge. Moderate facet arthrosis with ligamentum flavum thickening and trace facet effusions. No central canal or foraminal narrowing. L2-L3: Mild disc space narrowing with spondylitic spurring, tiny posterior annular disc bulge, moderate facet arthrosis with ligamentum flavum thickening and trace right facet effusion. Central canal and right neuroforamen are patent. There is mild inferior left foraminal narrowing. L3-L4: Mild disc space narrowing with spondylitic spurring, ligamentum flavum thickening with severe facet arthrosis and trace facet effusions. Tiny posterior annular disc bulge results in mild foraminal stenosis bilaterally. Central canal is patent. L4-L5: Grade 1 anterolisthesis. Remote appearing Schmorl's node of the superior endplate L5. Small circumferential annular disc bulge. Ligamentum flavum thickening with severe facet arthrosis and small bilateral facet effusions. AP dimension of the thecal sac measures 6 mm. Mild to moderate right and mild left foraminal narrowing. L5-S1: Tiny posterior annular disc bulge with mild spondylitic spurring. Severe facet arthrosis with ligamentum flavum thickening. No central canal or foraminal narrowing. IMPRESSION: 1. No acute fracture or subluxation. 2. Severe multilevel facet arthrosis. Grade 1 anterolisthesis L4 on L5 is likely secondary to long-standing facet disease. 3. At L4-L5 there is moderate to severe central canal stenosis with mild left foraminal narrowing. 4. Multilevel discogenic degeneration as above. ACT 112: Negative or not required by law. The above report was generated using voice recognition software. It may contain grammatical, syntax or spelling errors. Electronically signed by: Sree Sr M.D. 04/29/2020 8:44 AM Dictated: 04/29/20836 Transcribed: 04/29/20836 CT: non enhanced and reports reviewed CT Findings: [place], [place] [phone] CT Scan Report Patient: GARFIELD FORD Date: 04/28/20 MR#: [id number]: [address] Acct ID:[id number]: Date: 1945City Zip: [place] [address] Age: 74Location: ED Sex: FRoom/Bed: Att Phy:Diagnosis: BACK PAIN, DIZZINESS, TINGLING IN HANDS, LEGS NUMB Lauren Phy: Qasim Rangel MDService Date: 04/28/20 Fam Phy:Interpreting Phy: Anthony Rosenbaum MD Admit Phy: Ordering Phy: Allan Clayton MD cc: ~ ABDOMEN AND PELVIS CT WITHOUT CONTRAST CT DOSE: 956.24 mGy.cm HISTORY: Generalized abdominal pain. Distention. TECHNIQUE: Multiaxial CT images of the abdomen and pelvis were performed without contrast. A dose lowering technique was utilized adhering to the principles of ALARA. COMPARISON STUDY: Abdomen and pelvis CT 04/22/2020. FINDINGS: The lung bases are clear. No pneumoperitoneum. No pneumatosis. No fractures within the visualized osseous structures. The unenhanced liver, gallbladder, spleen, and pancreas are unremarkable. Stable bilateral adrenal gland nodules which likely represent benign adenomas. A 6 mm exophytic lesion within the upper pole the left kidney on image 75. This is indeterminate on this noncontrast study. No renal or ureteral stones. No hydronephrosis. The bladder is decompressed by Sheridan catheter. The uterus and bilateral adnexa are within normal limits. Mild pelvic floor collapse. Suboptimal evaluation for bowel pathology due to the lack of intravenous and oral contrast. However, there is no definite bowel wall thickening. Normal appendix. A few mildly dilated gas and fluid-filled loops of small bowel within the abdomen anteriorly. No transition point identified. This favors a mild ileus. No retroperitoneal lymphadenopathy. Normal caliber abdominal aorta. IMPRESSION: 1. A few mildly dilated gas and fluid-filled loops of small bowel within the midabdomen anteriorly. No clear transition point to suggest a small bowel o bstruction. Therefore, this favors a mild ileus. A low-grade partial small bowel obstruction could also have a similar appearance but is considered less likely. Follow-up recommended the patient symptoms continue to progress. 2. Normal appendix. 3. No renal stones or hydronephrosis. 4. A 6 mm exophytic lesion within the upper pole of the left kidney. This is indeterminate on this noncontrast study. This could represent a small cyst or renal mass. Consider follow-up nonemergent renal ultrasound for further evaluation. ACT 112: Negative or not required by law. Electronically signed by: Anthony Rosenbaum M.D. 04/28/2020 8:07 PM Dictated: 04/28/201999 Transcribed: 04/28/201999 Previous Records Review Previous Records: personally reviewed by me
[2020-05-01] MEDS ORDERED: TRAMADOL HCL 50 MG TABLET PO STA (10:52)
[2020-05-01] MEDS ORDERED: OXYCODONE HCL IR 5 MG TAB (IMMEDIATE RELEASE) PO PRN (15:02)
--- NOTE | 2020-05-01 15:08 | Hospitalist Progress Note ---
Date of Service May 01, 2020 Assessment & Plan (1) Low back pain: Mrs. Ford is a 74 yo woman with a PMHx of lumbar spinal stenosis and bilateral lumbar neuroforaminal stenosis who presents with acute worsening of low back pain after discontinuing her Percocet. She endorses associated bilateral lower extremity weakness, numbness and urinary retention. MRI 04/29/20 IMPRESSION: 1. No acute fracture or subluxation. 2. Severe multilevel facet arthrosis. Grade 1 anterolisthesis L4 on L5 is likely secondary to long-standing facet disease. 3. At L4-L5 there is moderate to severe central canal stenosis with mild left foraminal narrowing. scheduled Tylenol and celebrex, added nucynta without help, pain management switched to ultram, I was called to her room 3 x's this am as she was convinced that the ultram was not helping, we are continuing hydrocortisone and pt now requested a switch to retry oxycodone, she just wants to make it to her Ortho appointment in april (2) Ileus: - etiology likely secondary to chronic narcotic use - Abdomen/Pelvis CT scan showing no discrete transition point, but dilated loops of bowel consistent with an ileus vs. mild SBO Resolved- tolerating advanced diet and pt claims to have stool production (3) Elevated serum creatinine: -improved nieves resolved (4) Afib: - Anticoagulated, rate controlled. - Continue Carvedilol 25mg po BID -Continue Digoxin. Level was subtherapeutic on 04/21/20 at 0.5. -Continue Diltiazem 180mg po qAM -Continue Rivaroxaban (5) Hypothyroidism: remains on po levothyroxine (6) Left kidney mass: - A 6 mm exophytic lesion within the upper pole of the left kidney noted incidentally on A/P CT scan. - Consider follow-up nonemergent renal ultrasound for further evaluation. (7) Chronic systolic CHF (congestive heart failure): euvolemic on Carvedilol and Lasix - hold home lisinopril (8) Bronchiectasis: will hold Prednisone 5mg po qAM, as will be on hydrocortisone for back pain and radicualar symptoms for 1 day then resume po prednisone -Continue Tessalon 100mg po TID plus Keflex DVT ppx: on Rivaroxaban Code: DNR/DNI Admission and Anticipated Discharge Date Admission Date: April 30, 2020 Subjective This patient continues to have multiple somatic complaints today focusing on radicular back pain control and inflammation. Has tried nucynta, ultram both with excalated doseing and now asked to retry oxycodone. She has seem pain management and I discussed that pain medicines may not be the solution to her radicular back pain \She has never seen orthopedics for her back discomfort but does have an upcoming appointment in April, did see pain management here Review of Systems Review of Systems: Mild distress and fatigue Setting frontal headache and blurry vision when headache worsens no speech or swallowing issues no chest pain, pressure or palpitations no shortness of breath, cough or wheezes no abdominal pain, nausea or vomiting, diarrhea or constipation no dysuria, hematuria or frequency no focal joint pain or swelling Left-sided back pain rating down her leg worsened with movement no loss of sensation no bruising, bleeding or rashes no focal signs of weakness or numbness or altered sensation no complaints or anxiety or depression. Physical Exam Physical Exam: The patient appeared well nourished and normally developed. Vital signs as documented. Head exam is normocephalic atraumatic no scleral icterus Neck is without JVD, thyromegaly, or carotid bruits. Lungs are clear to auscultation, no focal loss of breath sounds Cardiac exam, Rhythm is regular.. No murmurs, rubs or gallops. Abdominal exam reveals normal bowel sounds, soft non tender, no masses Extremities are nonedematous and after medication with toradol has negative slr at bedside Neurologic exam is alert and oriented, no focal loss of strength or sensation Skin is without bruises or rashes Psychologically is without concerns for anxiety or depression. Results & Data Results & Data ([facility]) Vital Signs (Past 12 Hours) Vital Signs Temp Pulse Resp BP Pulse Ox 05/01/20 08:00 98.2 F 70 18 130/77 99 PG Care Time/CCT Total # of Minutes Spent Total Time Spent with Patient: Total time spent is greater than 50% in coordination of care (as documented) at patient's floor/unit and/or counseling patient: Coding Level of Care Code 87318 Subseq Hosp Care Lvl 3 Diagnoses Low back pain M54.5 Ileus K56.7 Elevated serum creatinine R79.89 Afib I48.91 Hypothyroidism E03.9 Left kidney mass N28.89 Chronic systolic CHF (congestive heart failure) I50.22 Bronchiectasis J47.9
[2020-05-01] MEDS: RIVAROXABAN 20 MG TAB PO SCH (16:29)
[2020-05-01] MEDS: DIGOXIN 0.125 MG TAB PO SCH (16:30)
--- NOTE | 2020-05-01 16:50 | Ultrasound Report ---
RENAL ULTRASOUND CLINICAL HISTORY: eval for possible mass seen on CT COMPARISON STUDY: CT of the abdomen and pelvis April 28, 2020. TECHNIQUE: Sonography of the kidneys and the urinary bladder was performed. FINDINGS: The right kidney measures 10.1 cm and the left measures 10.5 cm. No hydronephrosis is prese nt. Note is made of a 1.1 cm anechoic lesion within the upper pole of the left kidney which correspon ds to the lesion shown on CT of April 28, 2020. This is benign. No solid renal lesions were identi fied by sonography. Ureteral jets were not visualized. Bladder was otherwise unremarkable. IMPRESSION: 1.1 cm cyst within the upper pole of the left kidney which corresponds to the lesion show n on CT of April 28, 2020. This is benign. ACT 112: Negative or not required by law. Electronically signed by: Clarence Mcadams M.D. 05/01/2020 4:48 PM
--- NOTE | 2020-05-01 18:17 | Discharge Summary ---
Date of Service May 01, 2020 Admission HPI Per Admitting Provider Mrs. Ford is a 74 yo woman with a PMHx of lumbar spinal stenosis here today for acute worsening of her chronic low back pain. Of particular concern, she endorses associated bilateral lower extremity numbness, weakness, and urinary retention. She says she has not had anything to eat or drink for 1 day, which she attributes to diminished appetite. However, she has passed a bowel movement earlier today, denying any bladder or bowel incontinence. Of note, she was admitted on 04/23/20 for worsening of her low back pain as she was trying to wean herself off of her usual pain medication regimen, which consists of Percocet q6h and gabapentin 300mg, TID + 100mg Prn. Mrs. Ford believes she is suffering from a "toxicity" related to the Percocet, and had cut down her dose from 4 tablets to 2, and finally to 0 yesterday. However, she was not replacing the Percocet with another analgesic modality. She took 1 Percocet today when her pain level became unbearable. She has been working with her PCP to manage her b ack pain - she has been referred to see Dr. Johnson at [facility], but she has not yet had her appointment. ED course: Vitals were stable. CBC normal. Creatinine increased to 1.35. Melvina ctrolytes WNL. ESR mildly elevated to 23, CRP normal. UA 2+ LE, 5-10 WBCs, neg bacteria, neg nitrites. MRI of Lumbar spine showing: No fracture. Mild degenerative disc disease at L4-5 where there is a grade 1 anterolisthesis with ligamentous and facet hypertrophy causing moderate to severe spinal canal and bilateral neuroforaminal stenosis per STAT RAD report. A/P CT scan showing evidence of an ileus vs. mild SBO (no transition point). Patient was given 1 dose of zofran 4mg, IV and 2 doses of hydromorphone 0.5mg, IV for pain. Principal Diagnosis intractable back pain Discharge Exam The patient appeared well pain was 5 out of 10 she is able to ambulate in the hallway Vital signs as documented. Lungs are clear to auscultation and appear unlabored Cardiac exam, Rhythm is regular.. No murmurs, rubs or gallops. Abdominal exam reveals normal bowel sounds, soft non tender, no masses Extremities are nonedematous and both pedal pulses are normal. Neurologic exam is alert and oriented, no focal loss of strength or sensation is of left-sided radicular pain with bending and flexing her leg this is tolerable Skin is without bruises or rashes Psychologically is without concerns for anxiety or depression. Discharge Data Allergies Allergy/AdvReac Type Severity Reaction Status Date / Time codeine AdvReac Intermediate SEVERE GI Verified 04/28/20 22:15 SYMPTOMS Consultations 04/28/20 21:58 ED Decision to Admit Stat 04/29/20 01:49 Consult Pain Management Routine Ordered Studies 04/28/20 18:20 CT abd pelvis wo con Stat MR lumbar spine wo con Stat 05/01/20 15:08 US renal/blad retro comp Routine Hospital Course (1) Low back pain: Mrs. Ford is a 74 yo woman with a PMHx of lumbar spinal stenosis and bilateral lumbar neuroforaminal stenosis who presents with acute worsening of low back pain after discontinuing her Percocet. She endorses associated bilateral lower extremity weakness, numbness and urinary retention. MRI 04/29/20 IMPRESSION: 1. No acute fracture or subluxation. 2. Severe multilevel facet arthrosis. Grade 1 anterolisthesis L4 on L5 is likely secondary to long-standing facet disease. 3. At L4-L5 there is moderate to severe central canal stenosis with mild left foraminal narrowing. scheduled Tylenol and celebrex, added nucynta without help, pain management switched to ultram, I was called to her room 3 x's this am as she was convinced that the ultram was not helping, recent is financially unattainable as it is $590 a month. She requested a switch to retry oxycodone, this helped her pain reduce to 5/10 she is able to walk in the hallway she just wants to make it to her Ortho appointment in april (2) Ileus: - etiology likely secondary to chronic narcotic use - Abdomen/Pelvis CT scan showing no discrete transition point, but dilated loops of bowel consistent with an ileus vs. mild SBO Resolved- tolerating advanced diet and pt claims to have stool production (3) Elevated serum creatinine: -improved nieves resolved (4) Afib: - Anticoagulated, rate controlled. - Continue Carvedilol 25mg po BID -Continue Digoxin. Level was subtherapeutic on 04/21/20 at 0.5. -Continue Diltiazem 180mg po qAM -Continue Rivaroxaban (5) Hypothyroidism: remains on po levothyroxine (6) Left kidney mass: - A 6 mm exophytic lesion within the upper pole of the left kidney noted incidentally on A/P CT scan. - renal ultrasound for further evaluation as this being most consistent with a left kidney without concern for malignancy. (7) Chronic systolic CHF (congestive heart failure): euvolemic on Carvedilol and Lasix - hold home lisinopril (8) Bronchiectasis: Patient will resume her prednisone 5 only take her Tessalon as needed to avoid drug interactions DVT ppx: on Rivaroxaban Code: DNR/DNI Total Time Total Time Spent Total Time Spent (In Minutes): It required greater than 30 minutes to prepare this patient for discharge Discharge Plan Discharge Items Patient Disposition: Home - Self-Care Reason For Visit: LOW BACK PAIN Discharge Diagnosis: acute on chronic back pain Activity: Per Instructions section Activity Comment: limit vigorous physical activity Non-emergency contact: Primary Care Provider and Specialist Call non-emergency contact if: you have any medication questions and your symptoms worsen Follow-up/Referrals: Qasim Rangel MD [Primary Care Provider] - Diet: Regular Addtl Attending Provider Instructions: You have signs of back pain that may be caused by a pinched nerve. We discussed the fact that this may eventually lead toward surgery. I strongly recommend you follow-up with your primary care provider to continue referral process for pain management and possibly physical therapy. There is also adjunctive pain control techniques such as acupuncture and massage therapy that can be offered locally. Please use your medications carefully as they can have side effects as you are well aware. We did identify a cyst on your left kidney during her hospital stay this should not be of significant concern it would only become an issue if you do get an upper urinary tract infection and the cyst becomes infected which would require a longer course of antibiotic treatment Pending Studies at Discharge: No Stand-Alone Forms: My [employer], Smoking Cessation Medications and DC Order Prescriptions: New oxycodone 10 mg tablet 10 mg PO Q8H PRN (Reason: pain) Qty: 20 RF: 0 Continued digoxin 125 mcg (0.125 mg) tablet 125 mcg PO DAILY@1600 RF: 0 pantoprazole 40 mg tablet,delayed release (DR/EC) 40 mg PO QAM RF: 0 gabapentin 300 mg capsule 300 mg PO TID RF: 0 carvedilol 25 mg tablet 25 mg PO BID RF: 0 multivitamin [Multiple Vitamins] Tablet 6 tab PO QAM RF: 0 furosemide 40 mg tablet 40 mg PO QAM RF: 0 levothyroxine 112 mcg tablet 112 mcg PO QAM RF: 0 Xarelto 20 mg tablet 20 mg PO DAILY@1600 RF: 0 diltiazem HCl [Cartia XT] 180 mg capsule,extended release 24hr 180 mg PO QAM RF: 0 zolpidem 10 mg tablet 10 mg PO HS RF: 0 lisinopril 40 mg tablet 40 mg PO QAM RF: 0 ergocalciferol (vitamin D2) [Vitamin D2] 1,250 mcg (50,000 unit) Capsule 50,000 unit PO 3XWK RF: 0 minocycline 100 mg capsule 200 mg PO BID RF: 0 prednisone 5 mg tablet 5 mg PO QAM RF: 0 Discontinued benzonatate 100 mg capsule 100 mg PO TID RF: 0 oxycodone-acetaminophen 5-325 mg tablet 1 tab PO Q6H PRN (Reason: Pain) RF: 0 gabapentin 100 mg capsule 100 mg PO TID RF: 0 Discharge Orders: Discharge Order (Routine); Ordered 05/01/20 Ordered By: João Peralta Admission Data Admit Date/Time: 04/30/20 15:07 Attending Provider: João Peralta Admit Provider: Kavon Mixon Primary Care Provider: Qasim Rangel Other Providers: Kavon Mixon ; Leigha Stallings Coding Level of Care Code D/C Day Management >30 mins Diagnoses Low back pain M54.5 Ileus K56.7 Elevated serum creatinine R79.89 Afib I48.91 Hypothyroidism E03.9 Left kidney mass N28.89 Chronic systolic CHF (congestive heart failure) I50.22 Bronchiectasis J47.9
== END 2020-05-01 18:59 | disposition home or self-care (01) | DRG 552 ==
LOC: 2W 17:24 → ED 17:24 → SUATTDRO 04-29 00:01 → 2W 04-29 00:54

== ENCOUNTER 2021-04-30 18:52 | Inpatient (IN) ==
[2021-04-30 19:29] LABS: Basophils # (auto) 0.03 K/uL (0-0.2); Basophils % (auto) 0.4 %; Eosinophils # (auto) 0.09 K/uL (0-0.5); Eosinophils % (auto) 1.2 %; Hematocrit (blood only) 42.7 % (37-47); Hemoglobin 14.7 g/dL (12.0-16.0); Immature Granulocytes # (auto) 0.01 K/uL (0.00-0.02); Immature Granulocytes % (auto) 0.1 %; Lymphocytes # (auto) 1.27 K/uL (1.2-3.4); Lymphocytes % (auto) 16.6 %; Mean Corpuscular Hemoglobin 34.3 pg (25-34); Mean Corpuscular Hgb Conc 34.4 g/dL (32-36); Mean Corpuscular Volume 99.5 fL (80-100); Mean Platelet Volume 10.1 fL (7.4-10.4); Monocytes # (auto) 0.67 K/uL (0.11-0.59); Monocytes % (auto) 8.8 %; Neutrophils # (auto) 5.56 K/uL (1.4-6.5); Neutrophils % (auto) 72.9 %; Platelet Count 262 K/uL (130-400); RDW Coefficient of Variation 13.6 % (11.5-14.5); RDW Standard Deviation 49.4 fL (36.4-46.3); Red Blood Count 4.29 M/uL (4.2-5.4); White Blood Count 7.63 K/uL (4.8-10.8)
[2021-04-30 19:41] LABS: INR 1.3 (0.9-1.1); Partial Thromboplastin Ratio 1.3; Partial Thromboplastin Time 33.7 Seconds (21.0-31.0); Prothrombin Time 13.2 Seconds (9.0-12.0)
--- NOTE | 2021-04-30 19:43 | XRay Report ---
XR chest 1V portable CLINICAL HISTORY: Chest Pain COMPARISON STUDY: Chest CT April 05, 2020. Chest radiograph October 22, 2020. FINDINGS: Lungs are mildly diminished. This is unchanged. There is no pneumothorax or pleural effusio n. Old right seventh rib fracture is incidentally noted. Cardiomegaly is unchanged. There is no evide nce for pulmonary edema. IMPRESSION: No acute cardiopulmonary findings. No change in appearance of the chest. ACT 112: Negative or not required by law. Electronically signed by: Clarence Mcadams M.D. 04/30/2021 7:41 PM
[2021-04-30] MEDS ORDERED: KETOROLAC 30 MG/ML VIAL IV STA (19:45)
--- NOTE | 2021-04-30 19:48 | Emergency Department Note ---
History of Present Illness General Chief complaint: Cardiac Assessment Stated complaint: INFLAMATION OF THE HEART Time Seen by Provider: 04/30/21 19:25 Source: patient History of Present Illness Provider complaint: Chest discomfort Onset (ago): day(s) Location: chest and left Radiation: non-radiation Pain Consistency: + intermittent Maximum Pain Intensity: 10 Quality: + other (Heaviness) Relieved By: + medication (Salonpas) Exacerbated By: + none Associated symptoms: + fever/chills and + shortness of breath; no cough, no diaphoresis, no headaches or no nausea/vomiting This is a 75-year-old female who presents with chest discomfort for the past 5 days. She describes it as a heaviness on the left side of her chest. It does not radiate. It is associated with shortness of breath. She states it sometimes feels better with Salonpas patches. She also complains of dental pain since October of this year. She states that she has been on and off Augmentin since then. She is supposed to have it extracted in May. She has had tactile fevers and chills. She believes she needs an anti-inflammatory shot for this. She states she was given a strong anti-inflammatory by Dr. Rangel last Thursday and it helped significantly. She denies any recorded fevers. She has had no cough, vomiting, abdominal pain or urinary symptoms. She does state that she has had nausea from the antibiotics but takes Zofran for this. Home Medications Medication Instructions Recorded Confirmed Type furosemide 40 mg tablet 40 mg PO [facility] 11/30/18 04/30/21 History levothyroxine 112 mcg tablet 112 mcg PO [facility] 11/30/18 04/30/21 History rivaroxaban 20 mg tablet (Xarelto) 20 mg PO DAILY@1600 11/30/18 04/30/21 History digoxin 125 mcg (0.125 mg) tablet 125 mcg PO DAILY@1600 07/07/19 04/30/21 History diltiazem HCl 180 mg 180 mg PO QAM 12/11/19 04/30/21 History capsule,extended release 24 hr (Cartia XT) lisinopril 40 mg tablet 40 mg PO QA 12/11/19 04/30/21 History zolpidem 10 mg tablet 10 mg PO 12/11/19 04/30/21 History carvedilol 25 mg tablet 25 mg PO BID 04/22/20 04/30/21 History acetaminophen 500 mg tablet 500 mg PO QID 04/30/21 04/30/21 History (Tylenol Extra Strength) amoxicillin 250 mg-potassium 3 tab PO TID 04/30/21 04/30/21 History clavulanate 125 mg tablet ondansetron HCl 8 mg tablet 8 mg PO TID PRN 04/30/21 04/30/21 History tramadol 50 mg tablet (Ultram) 50 mg PO Q8H 04/30/21 04/30/21 History Allergies Allergy/AdvReac Type Severity Reaction Status Date / Time gabapentin Allergy Unknown MULTIPLE Verified 04/30/21 21:53 REACTIONS "COULD GO ON AND ON" - SEE NOTES oxycodone Allergy Unknown MULTIPLE Verified 04/30/21 21:53 REACTIONS "COULD GO ON AND ON" - SEE NOTES codeine AdvReac Unknown SEVERE GI Verified 04/30/21 21:53 SYMPTOMS Past Med/Surg History Medical History Ambulatory dysfunction LIMITED MOBILITY D/T CHRONIC WEAKNESS PER PT & SON Anxiety Atrial fibrillation DX 8 YR AGO, HX CARDIOVERSION CHF (congestive heart failure) Chronic fatigue syndrome Gallbladder problem POSSIBLE PER PT...NO MEDICAL DX OF, NO EVAL FOR GI problem "INFLAMMATION OF DIGESTIVE TRACT" - PT DENIES MEDICAL DX OF DIGESTIVE PROBLEM SUCH IBS, CHRON'S, DIVERTICULTIS,COLITIS, ETC... History of anemia History of recurrent UTIs REPORTS HX BLADDER INFECTIONS - NONE CURRENT Hypothyroidism Lumbar facet joint syndrome Multinodular goiter ? HX OF Neck stiffness PT REPORTS ONGOING PROBLEM, POSTURE RELATED SOB (shortness of breath) on exertion Weakness CHRONIC Surgical History H/O breast augmentation History of colonoscopy History of laparoscopy "LASER LAPARAOSCOPIES" S/P tooth extraction HX Family History Mother , age 83 with lung cancer and COPD Lung cancer COPD (chronic obstructive pulmonary disease) Family history of diabetes mellitus Father , in 70s of bladder cancer and COPD Bladder cancer COPD (chronic obstructive pulmonary disease) Family history of diabetes mellitus Brother Family history of diabetes mellitus Other Allergies Asthma Cancer Family history of bleeding disorder Family history of colon cancer in father Hearing loss Heart disease Hypertension Denies family history of Stroke Social History Smoking Status: Never smoker Second Hand Exposure: No; Hx Alcohol Use: No Hx Substance Use: No Preferred Language: Arabic Communication Ability: Effective Visual Impairment: No Limitations Surveillance Observer Required: No Beliefs That Will Affect Care: None marital status: Current Living Situation: Family Current Living Situation Comment: LIVES WITH SONDENY current occupational status: retired and disabled How many Children do You have: 2 other: Disabled in her 50s. 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 and A total of 10 systems reviewed and were otherwise negative Physical Exam Vital Signs Vital Signs - 24 hr 04/30/21 19:00 04/30/21 19:26 04/30/21 19:50 Temperature 36.9 C 37 C Temperature Source Oral Oral Pulse Rate 107 H Respiratory Rate 18 18 Respiratory Effort / Characteristics Non-Labored Respiratory Depth Normal Normal Respiratory Pattern Regular Blood Pressure 110/73 Blood Pressure [Right Arm] 122/76 Blood Pressure Mean 85 Blood Pressure Mean [Right Arm] 91 Pulse Oximetry 98 98 98 Oxygen Delivery Method Room Air Room Air Room Air Sepsis Recent Fever Within 48 Hours No Sepsis New/Unexplained Change in Mental Status N/A Sepsis Action Taken by Nursing No Action Required Constitutional: Vital signs reviewed. Eyes: Pupils are equal round reactive to light. Conjunctiva are noninjected. ENT: Pharynx is clear without erythema or exudate. Mucous membranes are moist. Left maxillary canine with tenderness to percussion. No surrounding gingival hyperemia or swelling. Neck supple without meningeal signs. Respiratory: Clear to auscultation bilaterally. Breath sounds are equal bilaterally. Cardiovascular: Irregularly irregular rhythm. Rate 98. GI: Soft, nondistended and nontender. Bowel sounds are present. Musculoskeletal: No peripheral edema. No lower extremity tenderness. Integumentary: No cyanosis. or jaundice. Neurological: The patient is awake and alert. No focal deficits. Psychiatric: Anxious. Course Administered Medications Discontinued Medications Ketorolac Tromethamine (Ketorolac 30 Mg/Ml Vial) 10 mg IV NOW STA Stop: 04/30/21 19:46 Last Admin: 04/30/21 20:03 Dose: 10 mg Documented by: [id number] Medical Decision Making Differential Diagnosis Unstable angina, CT, myocarditis, pericarditis, A. fib with RVR, dental abscess Medical Records Attestation: I reviewed the patient's medical records. I did perform a limited focused review of portions of the patient's old chart on the electronic medical record. The patient was admitted in September of this year for bacterial sphenoid sinusitis seen on CAT scan. She was discharged home with a prescription for 10 days of Augmentin. Home Medications Current Medication List: was personally reviewed by me Laboratory Data Attestation: I reviewed the patient's lab results. Result diagrams: 04/30/21 19:04/30/21 19: Lab Results 04/30/21 04/30/21 04/30/21 Range/Units 19:09 19:09 19:09 WBC 7.63 (4.8-10.8) K/uL RBC 4.29 (4.2-5.4) M/uL Hgb 14.7 (12.0-16.0) g/dL Hct 42.7 (37-47) % MCV 99.5 (80-100) fL MCH 34.3 H (25-34) pg MCHC 34.4 (32-36) g/dL RDW Std Deviation 49.4 H (36.4-46.3) fL RDW Coeff of [place] 13.6 (11.5-14.5) % Plt Count 262 (130-400) K/uL MPV 10.1 (7.4-10.4) fL Immature Gran % (Auto) 0.1 % Neut % (Auto) 72.9 % Lymph % (Auto) 16.6 % [place] % (Auto) 8.8 % Eos % (Auto) 1.2 % Baso % (Auto) 0.4 % Neut # (Auto) 5.56 (1.4-6.5) K/uL Lymph # (Auto) 1.27 (1.2-3.4) K/uL [place] # (Auto) 0.67 H (0.11-0.59) K/uL Eos # (Auto) 0.09 (0-0.5) K/uL Baso # (Auto) 0.03 (0-0.2) K/uL Immature Gran # (Auto) 0.01 (0.00-0.02) K/uL PT 13.2 H (9.0-12.0) Seconds INR 1.3 H (0.9-1.1) APTT 33.7 H (21.0-31.0) Seconds PTT Ratio 1.3 Sodium 138 (136-145) mmol/L Potassium 3.6 (3.5-5.1) mmol/L Chloride 101 (98-107) mmol/L Carbon Dioxide 28 (21-32) mmol/L Anion Gap 9.0 (3-11) BUN 30 H (7-18) mg/dl Creatinine 1.56 H (0.6-1.2) mg/dl Est Cr Clr Drug Dosing 38.7 ml/min Est GFR ( Amer) 37.8 ml/min Est GFR (Non-Af Amer) 32.6 ml/min BUN/Creatinine Ratio 19.1 (10-20) Glucose 135 H (70-99) mg/dl Calcium 9.6 (8.5-10.1) mg/dl Total Bilirubin 0.5 (0.2-1) mg/dl AST 22 (15-37) U/L ALT 34 (12-78) U/L Alkaline Phosphatase 83 (45-117) U/L Troponin I < 0.015 (0-0.045) ng/ml Total Protein 7.6 (6.4-8.2) gm/dl Albumin 3.8 (3.4-5.0) gm/dl Globulin 3.8 (2.5-4.0) gm/dl Albumin/Globulin Ratio 1.0 (0.9-2) Specimen Hemolysis COVID-19 Eval Order SARS-CoV-2 (PCR) (Negative) 04/30/21 04/30/21 Range/Units 20:05 20:05 WBC (4.8-10.8) K/uL RBC (4.2-5.4) M/uL Hgb (12.0-16.0) g/dL Hct (37-47) % MCV (80-100) fL MCH (25-34) pg MCHC (32-36) g/dL RDW Std Deviation (36.4-46.3) fL RDW Coeff of [place] (11.5-14.5) % Plt Count (130-400) K/uL MPV (7.4-10.4) fL Immature Gran % (Auto) % Neut % (Auto) % Lymph % (Auto) % [place] % (Auto) % Eos % (Auto) % Baso % (Auto) % Neut # (Auto) (1.4-6.5) K/uL Lymph # (Auto) (1.2-3.4) K/uL [place] # (Auto) (0.11-0.59) K/uL Eos # (Auto) (0-0.5) K/uL Baso # (Auto) (0-0.2) K/uL Immature Gran # (Auto) (0.00-0.02) K/uL PT (9.0-12.0) Seconds INR (0.9-1.1) APTT (21.0-31.0) Seconds PTT Ratio Sodium (136-145) mmol/L Potassium (3.5-5.1) mmol/L Chloride (98-107) mmol/L Carbon Dioxide (21-32) mmol/L Anion Gap (3-11) BUN (7-18) mg/dl Creatinine (0.6-1.2) mg/dl Est Cr Clr Drug Dosing ml/min Est GFR ( Amer) ml/min Est GFR (Non-Af Amer) ml/min BUN/Creatinine Ratio (10-20) Glucose (70-99) mg/dl Calcium (8.5-10.1) mg/dl Total Bilirubin (0.2-1) mg/dl AST (15-37) U/L ALT (12-78) U/L Alkaline Phosphatase (45-117) U/L Troponin I (0-0.045) ng/ml Total Protein (6.4-8.2) gm/dl Albumin (3.4-5.0) gm/dl Globulin (2.5-4.0) gm/dl Albumin/Globulin Ratio (0.9-2) Specimen Hemolysis COVID-19 Eval Order Covid19 at [facility] SARS-CoV-2 (PCR) NEGATIVE (Negative) Imaging Data Radiologist's Impression: Chest X-Ray 04/30/21 19:07 XR chest 1V portable CLINICAL HISTORY: Chest Pain COMPARISON STUDY: Chest CT April 05, 2020. Chest radiograph October 22, 2020. FINDINGS: Lungs are mildly diminished. This is unchanged. There is no pneumothorax or pleural effusion. Old right seventh rib fracture is incidentally noted. Cardiomegaly is unchanged. There is no evidence for pulmonary edema. IMPRESSION: No acute cardiopulmonary findings. No change in appearance of the chest. ACT 112: Negative or not required by law. Electronically signed by: Clarence Mcadams M.D. 04/30/2021 7:41 PM ECG Data Attestation: I personally reviewed and interpreted this ECG as follows: Indication: + chest pain Rate (beats per minute): 111 Rhythm: + atrial fibrillation ECG [place]: + Left axis deviation ECG ST segments: + Nonspecific ST abnormalities ECG Findings: + PVCs Comparison ECG Date: from (October 22, 2020) Change: the following changes noted (Tachycardic today) MDM Narrative I did evaluate the patient as noted above. The patient is presenting with inte rmittent chest pressure and heaviness for the past 3 to 4 days. She states is left-sided without radiation. She is not currently having any chest discomfort. She also has dental pain which has been going on since October. On exam she has no obvious abscess but has some percussion tenderness to the left maxillary canine. She has no facial swelling or fever. She is requesting an anti-inflammatory for her chills and dental pain. IV access was established. I did treat her with Toradol [address] I did place an order for continuous cardiac monitoring. The monitor showed atrial fibrillation with a heart rate of 98. I did order and personally review the patient's 12-lead EKG as described ab moiz. She has A. fib with RVR and PVCs. I did order and personally reviewed the images of the patient's chest x-ray as described above. There is no evidence of acute cardiopulmonary process. I did order and review the patient's blood work as noted in the electronic medical record. CBC does not demonstrate leukocytosis or anemia. Her INR slightly elevated at 1.3. Creatinine is 1.56. Electrolytes are unremarkable. Troponin is negative. Covid screening is negative. I did discuss the test results with the patient. I explained to her that I was concerned that her chest pain may be related to coronary artery disease and recommended hospitalization for repeat cardiac biomarkers and [facility] care. I did discuss the case with the hospitalist and caser up. Impression & Plan Left-sided chest pain, Dental infection, Elevated serum creatinine Discharge Plan Visit Data Chief Complaint: Cardiac Assessment Stated Complaint: INFLAMATION OF THE HEART ED Provider: João Aviles Discharge Problem: Left-sided chest pain, Dental infection, Elevated serum creatinine Patient Disposition: Being Evaluated by Hospitalist Forms Stand Alone Forms: My [facility] Prescriptions Prescriptions: No Action digoxin 125 mcg (0.125 mg) tablet 125 mcg PO DAILY@1600 RF: 0 carvedilol 25 mg tablet 25 mg PO BID RF: 0 furosemide 40 mg tablet 40 mg PO QAM RF: 0 levothyroxine 112 mcg tablet 112 mcg PO QAM RF: 0 Xarelto 20 mg tablet 20 mg PO DAILY@1600 RF: 0 diltiazem HCl [Cartia XT] 180 mg capsule,extended release 24hr 180 mg PO QAM RF: 0 zolpidem 10 mg tablet 10 mg PO HS RF: 0 lisinopril 40 mg tablet 40 mg PO QAM RF: 0 ondansetron HCl 8 mg tablet 8 mg PO TID PRN (Reason: Nausea And Vomiting) RF: 0 amoxicillin-pot clavulanate 250-125 mg tablet 3 tab PO TID RF: 0 tramadol [Ultram] 50 mg tablet 50 mg PO Q8H RF: 0 acetaminophen [Tylenol Extra Strength] 500 mg Tablet 500 mg PO QID RF: 0 Referrals Referrals: Qasim Rangel MD [Primary Care Provider] -
[2021-04-30 19:53] LABS: Alanine Aminotransferase 34 U/L (12-78); Albumin Level 3.8 gm/dl (3.4-5.0); Alkaline Phosphatase 83 U/L (45-117); Aspartate Aminotransferase 22 U/L (15-37); BUN Creatinine Ratio 19.1 (10-20); Bilirubin,Total 0.5 mg/dl (0.2-1); Blood Urea Nitrogen 30 mg/dl (7-18); Calcium 9.6 mg/dl (8.5-10.1); Carbon Dioxide 28 mmol/L (21-32); Chloride 101 mmol/L (98-107); Creatinine Clr Calc Pharmacy 38.7 ml/min; Est GFR (African American) 37.8 ml/min; Est GFR (Non-African American) 32.6 ml/min; Globulin 3.8 gm/dl (2.5-4.0); Glucose 135 mg/dl (70-99); Potassium 3.6 mmol/L (3.5-5.1); Sodium 138 mmol/L (136-145); Total Protein 7.6 gm/dl (6.4-8.2); Troponin I < 0.015 ng/ml (0-0.045)
--- NOTE | 2021-04-30 22:02 | History & Physical Report ---
Date of Service April 30, 2021 Assessment & Plan (1) Left-sided chest pain: Plan: MSK vs. 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 Alfonso Rangel- continue thorugh PCP upon dishcarge (4) Atrial fibrillation with RVR: Plan: Rate variable and controlled on admission - Continue Carvedilol - Continue Digoxin - Continue Diltiazem (5) Chronic systolic CHF (congestive heart failure): Plan: History of HFrEF with medication management returned EF to 50-60% - previously did not do well on entresto (6) Mitral regurgitation: Plan: As above - follow fluid volume status and symptomatology (7) Hypothyroidism: Plan: Continue Synthroid History of Present Illness Primary Care Provider: Qasim Rangel MD 75 YOF with past medical history of: Afib(on Xeralto), chronic sinusitis (on Medrol 4mg), cracked tooth with history of tooth infection and abscess in October 2020. Patient comes in today for complaints of overall bodyaches to include chest pain that she says has been ongoing for months, and just got worse with hot and cold feelings all over. She reports that she has been putting "aspirin patches"(lidoderm patches) all around her chest for weeks. When talking with the EMD physician he states she told him her chest discomfort symptoms started on Thursday. The patient feels that this all started when she cracked her tooth and she "needs to be on her antibiotics all the time to keep the inflammation under control". Patient is on shelter Augmentin for her chronic sinusitis. In the EMD the patient had routine lab work done, ECG, CXR performed. The pain she endorses to her left chest wall without radiation, this does not change with activity but comes and goes. She is unable to tell whether this effects her breathing. This has not been associated with nausea/vomiting and no radiation. She is unable to tell what makes this worse "my tooth started all this". Her ECG has no dynamic ST changes to it, but aberrancy and left axis deviation being present. Her initial Troponin I was negative. Patient was given a dose of Toradol in the EMD which she feels has made her better, but the pain all over is still present. Patient will be observed for changes in her sym ptoms/ecg/laboratory evaluation. She had an ECHO performed in January that had normal wall motion and EF 50-55%. She has had her COVID vaccine and her COVID test is NEGATIVE on admission. Allergies Allergy/AdvReac Type Severity Reaction Status Date / Time gabapentin Allergy Unknown MULTIPLE Verified 04/30/21 21:53 REACTIONS "COULD GO ON AND ON" - SEE NOTES oxycodone Allergy Unknown MULTIPLE Verified 04/30/21 21:53 REACTIONS "COULD GO ON AND ON" - SEE NOTES codeine AdvReac Unknown SEVERE GI Verified 04/30/21 21:53 SYMPTOMS Home Medications Medication Instructions Recorded Confirmed Type furosemide 40 mg tablet 40 mg PO QAM 11/30/18 04/30/21 History levothyroxine 112 mcg tablet 112 mcg PO QAM 11/30/18 04/30/21 History rivaroxaban 20 mg tablet (Xarelto) 20 mg PO DAILY@1600 11/30/18 04/30/21 History digoxin 125 mcg (0.125 mg) tablet 125 mcg PO DAILY@1600 07/07/19 04/30/21 History diltiazem HCl 180 mg 180 mg PO QAM 12/11/19 04/30/21 History capsule,extended release 24 hr (Cartia XT) lisinopril 40 mg tablet 40 mg PO QAM 12/11/19 04/30/21 History zolpidem 10 mg tablet 10 mg PO HS 12/11/19 04/30/21 History carvedilol 25 mg tablet 25 mg PO BID 04/22/20 04/30/21 History acetaminophen 500 mg tablet 500 mg PO QID 04/30/21 04/30/21 History (Tylenol Extra Strength) amoxicillin 250 mg-potassium 3 tab PO TID 04/30/21 04/30/21 History clavulanate 125 mg tablet ondansetron HCl 8 mg tablet 8 mg PO TID PRN 04/30/21 04/30/21 History tramadol 50 mg tablet (Ultram) 50 mg PO Q8H 04/30/21 04/30/21 History Past Med/Surg History Medical History Ambulatory dysfunction LIMITED MOBILITY D/T CHRONIC WEAKNESS PER PT & SON Anxiety Atrial fibrillation DX 8 YR AGO, HX CARDIOVERSION CHF (congestive heart failure) Chronic fatigue syndrome Gallbladder problem POSSIBLE PER PT...NO MEDICAL DX OF, NO EVAL FOR GI problem "INFLAMMATION OF DIGESTIVE TRACT" - PT DENIES MEDICAL DX OF DIGESTIVE PROBLEM SUCH IBS, CHRON'S, DIVERTICULTIS,COLITIS, ETC... History of anemia History of recurrent UTIs REPORTS HX BLADDER INFECTIONS - NONE CURRENT Hypothyroidism Lumbar facet joint syndrome Multinodular goiter ? HX OF Neck stiffness PT REPORTS ONGOING PROBLEM, POSTURE RELATED SOB (shortness of breath) on exertion Weakness CHRONIC Surgical History H/O breast augmentation History of colonoscopy History of laparoscopy "LASER LAPARAOSCOPIES" S/P tooth extraction HX Family History Mother , age 83 with lung cancer and COPD Lung cancer COPD (chronic obstructive pulmonary disease) Family history of diabetes mellitus Father , in 70s of bladder cancer and COPD Bladder cancer COPD (chronic obstructive pulmonary disease) Family history of diabetes mellitus Brother Family history of diabetes mellitus Other Allergies Asthma Cancer Family history of bleeding disorder Family history of colon cancer in father Hearing loss Heart disease Hypertension Denies family history of Stroke Social History Smoking Status: Never smoker Second Hand Exposure: No; Hx Alcohol Use: No Hx Substance Use: No Preferred Language: Stateless Communication Ability: Effective Visual Impairment: No Limitations Treating Inspector Required: No Beliefs That Will Affect Care: None marital status: Current Living Situation: Family Current Living Situation Comment: with son current occupational status: retired and disabled How many Children do You have: 2 Other Information That Helps Us Care for You: No other: Disabled in her 50s. 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 Safe at Home: Yes Assistive Devices: Glasses Review of Systems Review of Systems: REVIEW OF SYSTEMS: Constitutional: (+) hot and cold feeling all over, No fever, sweats or chills Eyes: No diplopia, no worsening or blurred vision ENT: (+) difficulty hearing/wears hearing aides, (+) cracked tooth and tooth pain, no trouble swallowing Respiratory: No cough, sputum, dyspnea at rest or on exertion Cardiovascular: (+) chest pain, NO tightness or palpitations Abdomen: No pain, nausea, vomiting, diarrhea or constipation Musculoskeletal: (+) joint pain all over, calf pain, swelling Neurologic: No weakness, numbness/tingling, or balance problems Psychiatric: No anxiety or depression Skin: No rash or itch Physical Exam Physical Exam: PHYSICAL EXAM: General: awake, alert, no apparent distress Head: Normocephalic, atraumatic ENT: PERRL, EOMI, no pharyngeal exudate, mucous membranes moist, sinus pressure with palpation of sinuses Neuro: AAO x 3, speech clear and appropriate, strength intact bilaterally 5/5, sensation intact and equal all extremities and dermatomes, no pronator drift Chest: equal rise and fall of the chest, no accessory muscle use, no heaves or thrills, Clear to auscultation, on room air, Cardiac: Regular rate and rhythm, telemetry reviewed, skin warm dry, cap refill <3 seconds, peripheral pulses +2 no JVD, no murmur, no edema GI: NABS x 4 quadrants, soft, nontender to palpation, no rebound, guarding or tenderness : Spontaneously voiding, no pain, no CVA tenderness, MSK: Pain with palpation to chest wall and to shoulders Psych: Normal mood and affect Skin: some bruising to her arms Results & Data Results & Data ([facility]) Vital Signs (Past 12 Hours) Vital Signs Temp Pulse Resp BP BP Pulse Ox 04/30/21 19:50 37 C 18 122/76 98 04/30/21 19:26 98 04/30/21 19:00 36.9 C 107 H 18 110/73 98 Laboratory Results Abnormal Labs 04/30/21 04/30/21 04/30/21 19:09 19:09 19:09 MCH 34.3 H RDW Std Deviation 49.4 H [place] # (Auto) 0.67 H PT 13.2 H INR 1.3 H APTT 33.7 H BUN 30 H Creatinine 1.56 H Glucose 135 H Diagnostic Findings Chest X-Ray 04/30/21 19:07 XR chest 1V portable CLINICAL HISTORY: Chest Pain COMPARISON STUDY: Chest CT April 05, 2020. Chest radiograph October 22, 2020. FINDINGS: Lungs are mildly diminished. This is unchanged. There is no pneumothorax or pleural effusion. Old right seventh rib fracture is incidentally noted. Cardiomegaly is unchanged. There is no evidence for pulmonary edema. IMPRESSION: No acute cardiopulmonary findings. No change in appearance of the chest. ACT 112: Negative or not required by law. Electronically signed by: Clarence Mcadams M.D. 04/30/2021 7:41 PM Medications Administered Discontinued Medications Ketorolac Tromethamine (Ketorolac 30 Mg/Ml Vial) 10 mg IV NOW STA Stop: 04/30/21 19:46 Last Admin: 04/30/21 20:03 Dose: 10 mg Documented by: [id number] Home Medications furosemide 40 mg tablet 40 mg PO QAM 11/30/18 [History Confirmed 01/07/21] levothyroxine 112 mcg tablet 112 mcg PO QAM 11/30/18 [History Confirmed 01/07/21] rivaroxaban 20 mg tablet (Xarelto) 20 mg PO DAILY@1600 11/30/18 [History Confirmed 01/07/21] digoxin 125 mcg (0.125 mg) tablet 125 mcg PO DAILY 07/07/19 [History Confirmed 01/07/21] diltiazem HCl 180 mg capsule,extended release 24 hr (Cartia XT) 180 mg PO QAM 12/11/19 [History Confirmed 01/07/21] lisinopril 40 mg tablet 40 mg PO QAM 12/11/19 [History Confirmed 01/07/21] zolpidem 10 mg tablet 10 mg PO HS 12/11/19 [History Confirmed 01/07/21] carvedilol 25 mg tablet 25 mg PO BID 04/22/20 [History Confirmed 01/07/21] acetaminophen 500 mg tablet (Tylenol Extra Strength) 500 mg PO QID 04/30/21 [History Confirmed 04/30/21] amoxicillin 250 mg-potassium clavulanate 125 mg tablet 3 tab PO TID 04/30/21 [History Confirmed 04/30/21] ondansetron HCl 8 mg tablet 8 mg PO TID PRN 04/30/21 [History Confirmed 04/30/21] tramadol 50 mg tablet (Ultram) 50 mg PO Q8H 04/30/21 [History Confirmed 04/30/21] ECG Additional Comments: Atrial fibrillation with rapid ventricular response with premature ventricular or aberrantly conducted complexes Left axis deviation Low voltage QRS Inferior infarct (cited on or before 28-APR-2020) Possible Anterolateral infarct (cited on or before 22-APR-2020) Abnormal ECG When compared with ECG of 22-OCT-2020 13:41, Vent. rate has increased BY 52 BPM Questionable change in initial forces of Lateral leads T wave inversion no longer evident in Anterior leads Code Status & VTE Plan Code Status CODE: DNR/DNI VTE: SCDs, Xeralto Supervising Physician Co-Signing Physician Notes Patient seen and examined, chart reviewed, case discussed with ANANDA Peraza and I agree with his assessment and plan as documented above. In brief, Ms. Ford is a 75yo female with history of AF on Xarelto anticoagulation presenting with body aches and chest pain. Ongoing x months, worsening recently - patient has a cracked tooth and is presently on antibiotics - Augmentin. She feels that her tooth inflammation is what is causing her body pain. Her chest pain seems very atypical - most likely musculoskeletal in nature. EKG without acute ischemic changes, troponin unremarkable On exam she is afebrile, HD stable Skin - gold discoloration present from prior minocycline use HEENT - NC/AT, PERRL, MMM, Neck supple, left maxillary tooth worn to gumline, tender gum to palpation but no appreciable fluctuance, no obvious crack Heart - +S1, S2, regular, no m/r/g, pain with palpation of chest wall Lungs - CTA Abd - +BS, soft, NT/ND Ext - No edema Labs and images reviewed Assessment/Plan Suspect non-cardiac chest pain - trend troponin, telemetry monitoring Patient is distressed about her tooth - unable to have extraction in the outpatient setting until mid-May. I discussed with her that she should request being placed on a cancellation list to have it performed earlier if able. Also that we could communicate with her dentist to see if an earlier appointment is necessary. No dental imaging obtained this visit - consider imaging. She does not appear to be in severe discomfort. Remainder of plan as above PG Care Time/CCT Total # of Minutes Spent Total Time Spent with Patient: Total time spent is greater than 50% in coordination of care (as documented) at patient's floor/unit and/or counseling patient: Coding Level of Care Code INT OBSERVATION CARE 70M LVL 3 Diagnoses Left-sided chest pain R07.9 CKD (chronic kidney disease), stage III N18.30 Hypertrophy of both inferior nasal turbinates J34.3 Atrial fibrillation with RVR I48.91 Chronic systolic CHF (congestive heart failure) I50.22 Mitral regurgitation I34.0 Hypothyroidism E03.9
[2021-04-30] MEDS ORDERED: AMOXICILLIN/CLAVULANATE 250 MG TAB PO ONE (23:08)
[2021-04-30] MEDS ORDERED: ONDANSETRON INJ 2 MG/ML 2 ML VIAL IV PRN (23:56)
[2021-05-01] MEDS ORDERED: methylPREDNISolone 4 MG TAB PO ONE (01:45)
[2021-05-01] MEDS: traMADol HCL 50 MG TABLET PO SCH ×4 (01:45→23:59)
[2021-05-01] MEDS: ZOLPIDEM TARTRATE 10 MG TAB PO SCH ×2 (01:45→22:06)
[2021-05-01] MEDS: LEVOTHYROXINE SODIUM 112 MCG TABLET PO SCH (05:45)
[2021-05-01] MEDS ORDERED: KETOROLAC TROMETHAMINE 15 MG/ML VIAL IV ONE (06:27)
[2021-05-01 07:58] LABS: Basophils # (auto) 0.03 K/uL (0-0.2); Basophils % (auto) 0.5 %; Eosinophils # (auto) 0.07 K/uL (0-0.5); Eosinophils % (auto) 1.2 %; Hematocrit (blood only) 40.1 % (37-47); Hemoglobin 13.7 g/dL (12.0-16.0); Immature Granulocytes # (auto) 0.02 K/uL (0.00-0.02); Immature Granulocytes % (auto) 0.4 %; Lymphocytes # (auto) 1.07 K/uL (1.2-3.4); Mean Corpuscular Hemoglobin 33.8 pg (25-34); Mean Corpuscular Hgb Conc 34.2 g/dL (32-36); Mean Platelet Volume 10.1 fL (7.4-10.4); Monocytes # (auto) 0.54 K/uL (0.11-0.59); Monocytes % (auto) 9.6 %; Neutrophils # (auto) 3.89 K/uL (1.4-6.5); Neutrophils % (auto) 69.3 %; Platelet Count 236 K/uL (130-400); RDW Coefficient of Variation 13.7 % (11.5-14.5); RDW Standard Deviation 49.3 fL (36.4-46.3); Red Blood Count 4.05 M/uL (4.2-5.4); White Blood Count 5.62 K/uL (4.8-10.8)
[2021-05-01] MEDS: ACETAMINOPHEN 500 MG TAB PO SCH ×4 (08:15→22:07)
[2021-05-01] MEDS: AMOXICILLIN/CLAVULANATE 250 MG TAB PO SCH ×3 (08:15→16:19)
[2021-05-01] MEDS: carvediloL 25 MG TAB PO SCH ×2 (08:15→22:07)
[2021-05-01] MEDS: LIDOCAINE 5% 1 PATCH TD SCH (08:15)
[2021-05-01] MEDS: dilTIAZem HCL 180 MG CAPCR PO SCH (08:15)
[2021-05-01] MEDS: FUROSEMIDE 40 MG TAB PO SCH (08:15)
[2021-05-01 08:28] LABS: BUN Creatinine Ratio 24.2 (10-20); Calcium 9.1 mg/dl (8.5-10.1); Creatinine Clr Calc Pharmacy 44.7 ml/min; Est GFR (African American) 45.4 ml/min; Est GFR (Non-African American) 39.2 ml/min; Magnesium 2.3 mg/dl (1.8-2.4); Potassium 3.3 mmol/L (3.5-5.1)
[2021-05-01] MEDS ORDERED: POTASSIUM CHLORIDE CRTAB 20 MEQ TABCR PO STA (08:49)
--- NOTE | 2021-05-01 10:47 | Hospitalist Progress Note ---
Date of Service May 01, 2021 Assessment & Plan (1) Left-sided chest pain: Plan: MSK vs. 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 Alfonso Rangel- continue thorugh PCP upon dishcarge (4) Atrial fibrillation with RVR: Plan: Rate variable and controlled on admission - Continue Carvedilol - Continue Digoxin - Continue Diltiazem - Xarelto 20mg daily- hold today for OMFS evaluation (5) Chronic systolic CHF (congestive heart failure): Plan: History of HFrEF with medication management returned EF to 50-60% - previously did not do well on Entresto- no clinical evidence of worsening - As above (6) Mitral regurgitation: Plan: As above - follow fluid volume status and symptomatology (7) Hypothyroidism: Plan: Continue Synthroid (8) Cracked tooth: Plan: Occurred in January per the patient - she endorses that she has been to a dentist and can not get an appointment until May - she does have chronic sinus pressure/pain- belive it is tooth 13 or 14- difficult assessment - FS Dr. Nash consulted for evaluation of possible intervention- Appreciate his evaluation and assistance Admission and Anticipated Discharge Date Admission Date: April 30, 2021 Supervising Physician Co-Signing Physician Notes ANANDA Supervision note: I have personally seen and examined the patient and discussed and verified the love points of the history and physical along with the plan with ANANDA Peraza with the following exceptions and/or additions: I came to see the patient as she was threatening to leave AMA and go down to the ER to get better pain control for her tooth pain. She insists that three times in the past when she has had dental pain, that it causes "inflammation" all over her body including significant chest pain. There is no evidence of acute coronary syndrome. Her serial troponins, and ECGs do not show any evidence of ischemia and her pain is ongoing for many days. An ESR I ordered today was normal. She declines to have a cardiac stress test. She insists that if she has her tooth removed while she is here, that all of the pain in her chest will go away. I discussed her care with the oral surgeon who is agreeable to see her today and perform tooth extraction tomorrow. Vitals reviewed Gen: AAOx3, NAD, labile emotions HEENT: Anicteric sclerae, EOMI, multiple broken teeth in the upper left maxilla with no obvious purulent drainage or erythema CV: Irregularly irregular, normal rate no mgr nl S1S2, no tenderness to palpation over the chest wall Pulm: CTAB no wcr Abd: +BS soft NT ND no masses or hernias Ext: No edema Skin: Darkened pigmentation all over, warm/dry Neuro: Full strength throughout 75-year-old female here with diffuse musculoskeletal pain especially in the chest and dental pain in the left upper maxilla region Continue to hold Xarelto Cardiac issue has been ruled out Plan for tooth extraction tomorrow and can restart Xarelto on Thursday Add on Toradol IV as needed for pain Monitor BMP Subjective Continues to voice discomfort generally all over her body that starts at her tooth. Has not noticed a change in her chest discomfort. She is obsessing on her "inflammation" and believes again this is all stemming from her tooth. Her troponin levels were negative x 3 and ECG at baseline. Discussed case with Dr. Coates, will obtain nuclear Lexiscan, ESR level this morning was at 23. Will discuss case with Dr. Charity GUALLPA for evaluation of tooth extraction. Will hold her Xarelto until OMFS evaluation completed. Her laboratory data reveals improvement and in her renal function to baseline creatinine 1.2-1.3. Pending OMFS evaluation and Lexiscan today. May need further imaging following OMFS evaluation. Review of Systems Review of Systems: REVIEW OF SYSTEMS: Constitutional: (+) hot and cold feeling all over, No fever, sweats or chills Eyes: No diplopia, no worsening or blurred vision ENT: (+) difficulty hearing/wears hearing aides, (+) cracked tooth and tooth pain, no trouble swallowing Respiratory: No cough, sputum, dyspnea at rest or on exertion Cardiovascular: (+) chest pain, NO tightness or palpitations Abdomen: No pain, nausea, vomiting, diarrhea or constipation Musculoskeletal: (+) joint pain all over, calf pain, swelling Neurologic: No weakness, numbness/tingling, or balance problems Psychiatric: No anxiety or depression Skin: No rash or itch Physical Exam Physical Exam: PHYSICAL EXAM: General: awake, alert, Head: Normocephalic, atraumatic ENT: PERRL, EOMI, no pharyngeal exudate, sinus pressure with palpation of sinuses, difficult to get a good view of her tooth Neuro: AAO x 3, speech clear and appropriate, strength intact bilaterally 5/5, sensation intact and equal all extremities and dermatomes, no pronator drift Chest: equal rise and fall of the chest, no accessory muscle use, no heaves or thrills, Clear to auscultation, on room air, Cardiac: Regular rate and rhythm, telemetry reviewed- afib, skin warm dry, cap refill <3 seconds, peripheral pulses +2 no JVD, no murmur, no edema GI: NABS x 4 quadrants, soft, nontender to palpation, no rebound, guarding or tenderness : Spontaneously voiding, no pain, no CVA tenderness, MSK: Pain with palpation to chest wall and to shoulders, pain from head to foot that feels like cold and warm "shocks" Psych: Normal mood and affect Skin: some bruising to her arms, discoloration to bilateral legs- from chronic minocycline use prior. Results & Data Results & Data ([facility]) Vital Signs (Past 12 Hours) Vital Signs Temp Pulse Resp BP Pulse Ox 05/01/21 07:29 36.6 C 85 20 131/85 97 05/01/21 03:43 36.5 C 63 18 121/75 97 05/01/21 00:02 36.8 C 90 20 147/84 H 97 Laboratory Results Abnormal lab results 04/30/21 04/30/21 04/30/21 Range/Units 19:09 19:09 19:09 RBC (4.2-5.4) M/uL MCH 34.3 H (25-34) pg RDW Std Deviation 49.4 H (36.4-46.3) fL Lymph # (Auto) (1.2-3.4) K/uL [facility] # (Auto) 0.67 H (0.11-0.59) K/uL PT 13.2 H (9.0-12.0) Seconds INR 1.3 H (0.9-1.1) APTT 33.7 H (21.0-31.0) Seconds Potassium (3.5-5.1) mmol/L BUN 30 H (7-18) mg/dl Creatinine 1.56 H (0.6-1.2) mg/dl BUN/Creatinine Ratio (10-20) Glucose 135 H (70-99) mg/dl 05/01/21 05/01/21 Range/Units 07:18 07:18 RBC 4.05 L (4.2-5.4) M/uL MCH (25-34) pg RDW Std Deviation 49.3 H (36.4-46.3) fL Lymph # (Auto) 1.07 L (1.2-3.4) K/uL [facility] # (Auto) (0.11-0.59) K/uL PT (9.0-12.0) Seconds INR (0.9-1.1) APTT (21.0-31.0) Seconds Potassium 3.3 L (3.5-5.1) mmol/L BUN 32 H (7-18) mg/dl Creatinine 1.34 H (0.6-1.2) mg/dl BUN/Creatinine Ratio 24.2 H (10-20) Glucose 104 H (70-99) mg/dl ECG Additional Comments: Atrial fibrillation Left axis deviation Low voltage QRS Possible Lateral infarct (cited on or before 22-APR-2020) Inferior infarct (cited on or before 28-APR-2020) Abnormal ECG When compared with ECG of 30-APR-2021 19:08, (unconfirmed) Vent. rate has decreased BY 38 BPM Questionable change in initial forces of Lateral leads PG Care Time/CCT Total # of Minutes Spent Total Time Spent with Patient: Total time spent is greater than 50% in coordination of care (as documented) at patient's floor/unit and/or counseling patient: Coding Level of Care Code 85917 Subseq Obs Care Lvl 3 Diagnoses Left-sided chest pain R07.9 CKD (chronic kidney disease), stage III N18.30 Hypertrophy of both inferior nasal turbinates J34.3 Atrial fibrillation with RVR I48.91 Chronic systolic CHF (congestive heart failure) I50.22 Mitral regurgitation I34.0 Hypothyroidism E03.9 Cracked tooth K03.81
--- NOTE | 2021-05-01 14:08 | Oral/Maxillofacial Consult ---
Date of Consultation May 01, 2021 History of Present Illness Attending Physician: Lali Coates MD History of Present Illness I was asked to review Eva`s dental issues. By history she has a possible cracked tooth upper left side. I reviewed CT scan that were taken in November and the upper left teeth appear to be sound. Depending on the extent of the fracture hopeful the tooth can be restored by her dentist. I would be happy to see her in my office but if she already has an appointment set up with her dentist she should keep that appointment. If Eva is swollen or in pain please let me know so we can get her an appointment FAHAD. Allergies Allergy/AdvReac Type Severity Reaction Status Date / Time gabapentin Allergy Unknown MULTIPLE Verified 04/30/21 21:53 REACTIONS "COULD GO ON AND ON" - SEE NOTES oxycodone Allergy Unknown MULTIPLE Verified 04/30/21 21:53 REACTIONS "COULD GO ON AND ON" - SEE NOTES codeine AdvReac Unknown SEVERE GI Verified 04/30/21 21:53 SYMPTOMS Home Medications Medication Instructions Recorded Confirmed Type furosemide 40 mg tablet 40 mg PO QAM 11/30/18 04/30/21 History levothyroxine 112 mcg tablet 112 mcg PO QAM 11/30/18 04/30/21 History rivaroxaban 20 mg tablet (Xarelto) 20 mg PO DAILY@1600 11/30/18 04/30/21 History digoxin 125 mcg (0.125 mg) tablet 125 mcg PO DAILY@1600 07/07/19 04/30/21 History diltiazem HCl 180 mg 180 mg PO QAM 12/11/19 04/30/21 History capsule,extended release 24 hr (Cartia XT) lisinopril 40 mg tablet 40 mg PO QAM 12/11/19 04/30/21 History zolpidem 10 mg tablet 10 mg PO HS 12/11/19 04/30/21 History carvedilol 25 mg tablet 25 mg PO BID 04/22/20 04/30/21 History acetaminophen 500 mg tablet 500 mg PO QID 04/30/21 04/30/21 History (Tylenol Extra Strength) amoxicillin 250 mg-potassium 3 tab PO TID 04/30/21 04/30/21 History clavulanate 125 mg tablet ondansetron HCl 8 mg tablet 8 mg PO TID PRN 04/30/21 04/30/21 History tramadol 50 mg tablet (Ultram) 50 mg PO Q8H 04/30/21 04/30/21 History Patient History Medical History Ambulatory dysfunction LIMITED MOBILITY D/T CHRONIC WEAKNESS PER PT & SON Anxiety Atrial fibrillation DX 8 YR AGO, HX CARDIOVERSION CHF (congestive heart failure) Chronic fatigue syndrome Gallbladder problem POSSIBLE PER PT...NO MEDICAL DX OF, NO EVAL FOR GI problem "INFLAMMATION OF DIGESTIVE TRACT" - PT DENIES MEDICAL DX OF DIGESTIVE PROBLEM SUCH IBS, CHRON'S, DIVERTICULTIS,COLITIS, ETC... History of anemia History of recurrent UTIs REPORTS HX BLADDER INFECTIONS - NONE CURRENT Hypothyroidism Lumbar facet joint syndrome Multinodular goiter ? HX OF Neck stiffness PT REPORTS ONGOING PROBLEM, POSTURE RELATED SOB (shortness of breath) on exertion Weakness CHRONIC Surgical History H/O breast augmentation History of colonoscopy History of laparoscopy "LASER LAPARAOSCOPIES" S/P tooth extraction HX Family History Mother , age 83 with lung cancer and COPD Lung cancer COPD (chronic obstructive pulmonary disease) Family history of diabetes mellitus Father , in 70s of bladder cancer and COPD Bladder cancer COPD (chronic obstructive pulmonary disease) Family history of diabetes mellitus Brother Family history of diabetes mellitus Other Allergies Asthma Cancer Family history of bleeding disorder Family history of colon cancer in father Hearing loss Heart disease Hypertension Denies family history of Stroke Social History Smoking Status: Never smoker Second Hand Exposure: No; Hx Alcohol Use: No Hx Substance Use: No Preferred Language: Tristanian Communication Ability: Effective Visual Impairment: No Limitations Central 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
[2021-05-01] MEDS: DIGOXIN 0.125 MG TAB PO SCH (15:20)
[2021-05-01] MEDS: KETOROLAC TROMETHAMINE 15 MG/ML VIAL IV PRN (15:20)
[2021-05-01] MEDS: ONDANSETRON 4 MG OD TAB PO PRN ×2 (15:23→22:06)
[2021-05-01] MEDS ORDERED: RIVAROXABAN 20 MG TAB PO SCH (16:00)
--- NOTE | 2021-05-01 18:54 | Electrocardiogram Report ---
Test Reason : Blood Pressure : / mmHG Vent. 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 rate has increased BY 52 BPM T wave inversion no longer evident in Anterior leads Confirmed by Parker Mann ([id number]) on 05/01/2021 6:53:35 PM Referred By: Qasim Rangel Confirmed By:Thiago Mann
--- NOTE | 2021-05-01 18:57 | Electrocardiogram Report ---
Test Reason : Blood Pressure : / mmHG Vent. 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 rate has decreased BY 38 BPM Confirmed by Parker Mann ([id number]) on 05/01/2021 6:57:03 PM Referred By: Qasim Rangel Confirmed By:Thiago Mann
[2021-05-01] MEDS ORDERED: ZOLPIDEM TARTRATE 10 MG TAB PO SCH (21:00)
[2021-05-02] MEDS: KETOROLAC TROMETHAMINE 15 MG/ML VIAL IV PRN ×2 (03:42→19:16)
[2021-05-02] MEDS: LEVOTHYROXINE SODIUM 112 MCG TABLET PO SCH (05:58)
[2021-05-02] MEDS ORDERED: MoRPHine SULFATE 2 MG/ML CARP IV STA (06:00)
[2021-05-02] MEDS: LIDOCAINE 5% 1 PATCH TD SCH (07:57)
[2021-05-02 07:59] LABS: BUN Creatinine Ratio 24.3 (10-20); Calcium 8.9 mg/dl (8.5-10.1); Est GFR (Non-African American) 41.4 ml/min; Potassium 3.5 mmol/L (3.5-5.1)
[2021-05-02] MEDS: ONDANSETRON 4 MG OD TAB PO PRN (07:59)
[2021-05-02] MEDS: AMOXICILLIN/CLAVULANATE 250 MG TAB PO SCH ×3 (08:00→21:21)
[2021-05-02] MEDS: FUROSEMIDE 40 MG TAB PO SCH (08:00)
[2021-05-02] MEDS: ACETAMINOPHEN 500 MG TAB PO SCH ×4 (08:01→22:33)
[2021-05-02] MEDS: dilTIAZem HCL 180 MG CAPCR PO SCH (08:01)
[2021-05-02] MEDS: carvediloL 25 MG TAB PO SCH ×2 (08:01→21:21)
[2021-05-02] MEDS: traMADol HCL 50 MG TABLET PO SCH ×3 (08:03→23:06)
--- NOTE | 2021-05-02 08:04 | Oral/Maxillofacial Consult ---
Date of Consultation May 02, 2021 History of Present Illness Attending Physician: Lali Coates MD History of Present Illness Oral Maxillofacial Surgery Exam -severe pain and gum swelling Present Complaint: I have pain/swelling/drainage from my infected teeth. Symptoms have been ongoing for a while. The tooth fractured in January--now pain is unbearable My gums are swollen and infected Oral Exam: Finding--infection associated with the fractured and grossly decayed upper left teeth, tender gingival tissue with deep pocket formation.Teeth are in an abnormal position and removal is clinical indicated. Draining fistula acute sinus pain Imaging: Dental X Rays from Dr Todd: The X Rays were reviewed, there were no abnormal findings other then the fractured and carious teeth. The following teeth were grossly carious and require removal # 12,13,15,16 Soft tissue: floor of the mouth, tongue, hard/soft palate, posterior pharyngeal area all with in normal limits, no pathology or abnormal findings noted. No lesions noted that require follow up or Bx. Noted swollen gingival area=subperiosteal abscess associated with upper left fractured molars Oral Care: Overall oral care is fair Occlusion: Class I with missing teeth TMJ exam: No pop, clicking, pain, good ROM, No history of TMJ injury or dysfunction Periodontal exam: Mild gingival tissue inflammation with early evidence of periodontal pathology. Head/Neck exam: Neck is supple, FROM, Able to extend and flex neck w/o difficulty, no masses, no abnormalities, no airway issues, no evidence of sleep apnea. Treatment Plan: Stop Xarelto -done NPO --as Mid night Set up with general anesthesia in hospital on May 02 for extraction of # 12,13,15,16 I reviewed the treatment plan and consent with the patient I obtained the X Rays from her dentist Dr Todd with his treatment plan. Understanding was expressed. Time was given for questions regarding the surgery, risks and post op care. Discussed alternative to treatment--procedure as planned, Do not do surgery The indicated teeth are infected,decayed and grossly fractured and in an a bnormal position, removal is indicated and medically necessary. The following teeth are decayed and fractured and removal is indicated FAHAD: Fractured # 13 and 15 Risks discussed: Bleeding,Pain,swelling,infection, dry socket, delayed healing, nerve injury to face,lips,tongue,chin area which could be permanent (rare). TMJ, jaw stiffness, change in bite (rare), ear pain (referred). Sinus problems like fistula or infection. Need to leave a small root fragment in place to avoid injury to nerve or sinus. Relationship of teeth to sinus Home care reviewed: tooth brushing, rinsing, follow up care with Dr Nash and her dentist diet=[id number]-[id number] dental. Discussed activity level, driving/work while on Rx pain Meds. Surgery to be set up FAHAD in OR before Discharge. Allergies Allergy/AdvReac Type Severity Reaction Status Date / Time gabapentin Allergy Unknown MULTIPLE Verified 04/30/21 21:53 REACTIONS "COULD GO ON AND ON" - SEE NOTES oxycodone Allergy Unknown MULTIPLE Verified 04/30/21 21:53 REACTIONS "COULD GO ON AND ON" - SEE NOTES codeine AdvReac Unknown SEVERE GI Verified 04/30/21 21:53 SYMPTOMS Home Medications Medication Instructions Recorded Confirmed Type furosemide 40 mg tablet 40 mg PO QAM 11/30/18 04/30/21 History levothyroxine 112 mcg tablet 112 mcg PO QAM 11/30/18 04/30/21 History rivaroxaban 20 mg tablet (Xarelto) 20 mg PO DAILY@1600 11/30/18 04/30/21 History digoxin 125 mcg (0.125 mg) tablet 125 mcg PO DAILY@1600 07/07/19 04/30/21 History diltiazem HCl 180 mg 180 mg PO QAM 12/11/19 04/30/21 History capsule,extended release 24 hr (Cartia XT) lisinopril 40 mg tablet 40 mg PO QAM 12/11/19 04/30/21 History zolpidem 10 mg tablet 10 mg PO HS 12/11/19 04/30/21 History carvedilol 25 mg tablet 25 mg PO BID 04/22/20 04/30/21 History acetaminophen 500 mg tablet 500 mg PO QID 04/30/21 04/30/21 History (Tylenol Extra Strength) amoxicillin 250 mg-potassium 3 tab PO TID 04/30/21 04/30/21 History clavulanate 125 mg tablet ondansetron HCl 8 mg tablet 8 mg PO TID PRN 04/30/21 04/30/21 History tramadol 50 mg tablet (Ultram) 50 mg PO Q8H 04/30/21 04/30/21 History Patient History Medical History Ambulatory dysfunction LIMITED MOBILITY D/T CHRONIC WEAKNESS PER PT & SON Anxiety Atrial fibrillation DX 8 YR AGO, HX CARDIOVERSION CHF (congestive heart failure) Chronic fatigue syndrome Gallbladder problem POSSIBLE PER PT...NO MEDICAL DX OF, NO EVAL FOR GI problem "INFLAMMATION OF DIGESTIVE TRACT" - PT DENIES MEDICAL DX OF DIGESTIVE PROBLEM SUCH IBS, CHRON'S, DIVERTICULTIS,COLITIS, ETC... History of anemia History of recurrent UTIs REPORTS HX BLADDER INFECTIONS - NONE CURRENT Hypothyroidism Lumbar facet joint syndrome Multinodular goiter ? HX OF Neck stiffness PT REPORTS ONGOING PROBLEM, POSTURE RELATED SOB (shortness of breath) on exertion Weakness CHRONIC Surgical History H/O breast augmentation History of colonoscopy History of laparoscopy "LASER LAPARAOSCOPIES" S/P tooth extraction HX Family History Mother , age 83 with lung cancer and COPD Lung cancer COPD (chronic obstructive pulmonary disease) Family history of diabetes mellitus Father , in 70s of bladder cancer and COPD Bladder cancer COPD (chronic obstructive pulmonary disease) Family history of diabetes mellitus Brother Family history of diabetes mellitus Other Allergies Asthma Cancer Family history of bleeding disorder Family history of colon cancer in father Hearing loss Heart disease Hypertension Denies family history of Stroke Social History Smoking Status: Never smoker Second Hand Exposure: No; Hx Alcohol Use: No Hx Substance Use: No Preferred Language: Bangladeshi Communication Ability: Effective Visual Impairment: No Limitations Presentation Designer Required: No Beliefs That Will Affect Care: None marital status: Current Living Situation: Family Current Living Situation Comment: with son current occupational status: retired and disabled How many Children do You have: 2 Other Information That Helps Us Care for You: No other: Disabled in her 50s. 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
[2021-05-02] MEDS: DIGOXIN 0.125 MG TAB PO SCH (15:17)
[2021-05-02] MEDS ORDERED: LIDOCAINE/EPINEPHRINE 1.7 ML CTR ONE (16:14)
[2021-05-02] MEDS ORDERED: BUPIVACAINE/EPINEPHRINE 0.5% 1:200,000 1.8 ML CARP ONE (16:14)
[2021-05-02] MEDS ORDERED: CHLORHEXIDINE GLUCONATE 0.12% 480 ML ONE (16:14)
[2021-05-02] MEDS ORDERED: ONDANSETRON INJ 2 MG/ML 2 ML VIAL ONE (16:22)
[2021-05-02] MEDS ORDERED: LIDOCAINE 2% 2 ML VIAL/AMP(20MG/ML) INFIL ONE (16:22)
[2021-05-02] MEDS ORDERED: PROPOFOL IV EMULSION 10 MG/ML 20 ML VIAL IV ONE (16:22)
[2021-05-02] MEDS ORDERED: DEXAMETHASONE SOD INJ 4 MG/ML VIAL ONE ×2 (16:22→17:20)
[2021-05-02] MEDS ORDERED: fentaNYL citrate 100 MCG/2 ML VIAL ONE (16:23)
[2021-05-02] MEDS ORDERED: ACETAMINOPHEN 1000 MG/100 ML IV IV ONE (16:27)
[2021-05-02] MEDS ORDERED: ROCURONIUM BROMID 50MG/5ML SYR ONE (16:27)
[2021-05-02] MEDS ORDERED: ceFAZolin 2000MG 2,000 MG/15 ML SYR IV ONE ×2 (16:40→18:31)
[2021-05-02] MEDS ORDERED: ceFAZolin 2,000 MG/15 ML IV PUSH IV ONE (16:41)
--- NOTE | 2021-05-02 16:41 | History & Physical Bridge Note ---
Date of Service May 02, 2021 History & Physical Bridge Note I have examined the patient, reviewed the History & Physical and in the interval since the performance of the History & Physical I have noted the following changes of clinical significance: no changes noted. Reviewed treatment with her dentist Dr Todd will plan removal of 12,13,15,16
[2021-05-02] MEDS ORDERED: fentaNYL citrate 100 MCG/2 ML VIAL IV PRN (16:45)
[2021-05-02] MEDS ORDERED: ONDANSETRON INJ 2 MG/ML 2 ML VIAL IV PRN (16:45)
[2021-05-02] MEDS ORDERED: FLUMAZENIL 0.1 MG/1 ML 10 ML VIAL IV PRN (16:45)
[2021-05-02] MEDS ORDERED: LABETALOL HCL IV 5 MG/ML 20ML IV PRN (16:45)
[2021-05-02] MEDS ORDERED: NALOXONE HCL 0.4 MG/1 ML VIAL/CARP IV PRN (16:45)
[2021-05-02] MEDS ORDERED: ATROPINE SULFATE 0.1 MG/ML 10ML SYR IV PRN (16:45)
[2021-05-02] MEDS ORDERED: PROMETHAZINE HCL 12.5 MG in SODIUM CHLORIDE 0.9% 50 ML IV PRN (16:45)
[2021-05-02] MEDS ORDERED: ePHEDrine sulfate 50 MG/ML AMP IV PRN (16:45)
--- NOTE | 2021-05-02 16:45 | Anesthesiology Consultation ---
Date of Service May 02, 2021 Assessment & Plan Chart Review Chart Review: Acceptable Risk for Surgery and Patient NOT seen in Pre Admission Testing Consults Requested none ASA ASA4 Proposed Anesthesia Anesthesia Type: General Risk / Benefits Reviewed With: PT / POA / Parent / Guardian, Accepts Plan and Informed Consent Obtained Additional Comments: covid test neg. History Surgery Operation Date: 05/02/21 09:00 Proposed Procedures p Facial Infection Incision and Drainage - Prince Nash DMD s Left Upper Teeth Removal - Prince Nash DMD Height/Weight Height: 5 ft 6 in Weight: 101.3 kg Allergies Allergy/AdvReac Type Severity Reaction Status Date / Time gabapentin Allergy Unknown MULTIPLE Verified 04/30/21 21:53 REACTIONS "COULD GO ON AND ON" - SEE NOTES oxycodone Allergy Unknown MULTIPLE Verified 04/30/21 21:53 REACTIONS "COULD GO ON AND ON" - SEE NOTES codeine AdvReac Unknown SEVERE GI Verified 04/30/21 21:53 SYMPTOMS Medications Home Medications Medication Instructions Recorded Confirmed Last Taken furosemide 40 mg tablet 40 mg PO QAM 11/30/18 04/30/21 04/30/21 levothyroxine 112 mcg tablet 112 mcg PO QAM 11/30/18 04/30/21 04/30/21 rivaroxaban 20 mg tablet (Xarelto) 20 mg PO DAILY@1600 11/30/18 04/30/2103/13 16:00 digoxin 125 mcg (0.125 mg) tablet 125 mcg PO DAILY@1600 07/07/19 04/30/21 04/30/21 16:00 diltiazem HCl 180 mg 180 mg PO QAM 12/11/19 04/30/21 04/30/21 capsule,extended release 24 hr (Cartia XT) lisinopril 40 mg tablet 40 mg PO QAM 12/11/19 04/30/21 04/30/21 zolpidem 10 mg tablet 10 mg PO HS 12/11/19 04/30/21 04/29/21 carvedilol 25 mg tablet 25 mg PO BID 04/22/20 04/30/21 04/30/21 16:00 acetaminophen 500 mg tablet 500 mg PO QID 04/30/21 04/30/21 04/30/21 (Tylenol Extra Strength) amoxicillin 250 mg-potassium 3 tab PO TID 0904/30/21 04/30/21 14:00 clavulanate 125 mg tablet ondansetron HCl 8 mg tablet 8 mg PO TID PRN 04/30/21 04/30/21 04/30/21 tramadol 50 mg tablet (Ultram) 50 mg PO Q8H 04/30/21 04/30/21 Unknown Active Medications Generic Name Dose Route Start Last Admin Trade Name Jaylen PRN Reason Stop Dose Admin Acetaminophen 500 mg 05/01/21 09:00 05/02/21 12:44 Acetaminophen 500 Mg Tab PO 05/31/21 08:59 500 mg QID JENNY Administration Amoxicillin/Clavulanate Potassium 3 tab 05/01/21 08:00 05/02/21 11:31 Amoxicillin/Clavulanate 250 Mg Tab PO 05/11/21 07:59 3 tab TIDM JENNY Administration Carvedilol 25 mg 05/01/21 09:00 05/02/21 08:01 Carvedilol 25 Mg Tab PO 05/31/21 08:59 25 mg BID JENNY Administration Digoxin 0.125 mg 05/01/21 16:00 05/02/21 15:17 Digoxin 0.125 Mg Tab PO 05/31/21 15:59 0.125 mg DAILY@1600 JENNY Administration Diltiazem HCl 180 mg 05/01/21 09:00 05/02/21 08:01 Diltiazem Hcl 180 Mg Capcr PO 05/31/21 08:59 180 mg QAM JENNY Administration Furosemide 40 mg 05/01/21 09:00 05/02/21 08:00 Furosemide 40 Mg Tab PO 05/31/21 08:59 40 mg QAM JENNY Administration Ketorolac Tromethamine 15 mg 05/01/21 14:14 05/02/21 03:42 Ketorolac Tromethamine 15 Mg/Ml Vial IV 05/06/21 14:13 15 mg Q6H PRN Administration Pain Levothyroxine Sodium 112 mcg 05/01/21 06:30 05/02/21 05:58 Levothyroxine Sodium 112 Mcg Tablet PO 05/31/21 06:29 112 mcg DAILYBB JENNY Administration Lidocaine 1 patch 05/01/21 09:00 05/02/21 07:57 Lidocaine 5% 1 Patch TD 05/31/21 08:59 1 patch QAM JENNY Administration Miscellaneous 1 ea 05/01/21 21:00 05/01/21 22:06 Remove Lidoderm Patch N/A 05/31/21 20:59 1 ea DAILY@2100 JENNY Administration Ondansetron HCl 8 mg 04/30/21 23:56 05/02/21 07:59 Ondansetron 4 Mg Od Tab PO 05/31/21 23:55 8 mg TID PRN Administration Nausea And Vomiting Ondansetron HCl 4 mg 04/30/21 23:56 05/02/21 11:34 Ondansetron Inj 2 Mg/Ml 2 Ml Vial IV 05/30/21 23:55 4 mg Q6H PRN Administration Nausea Tramadol HCl 50 mg 05/01/21 01:45 05/02/21 15:17 Tramadol Hcl 50 Mg Tablet PO 05/31/21 01:44 50 mg Q8H JENNY Administration Zolpidem Tartrate 10 mg 05/01/21 01:45 05/01/21 22:06 Zolpidem Tartrate 10 Mg Tab PO 05/31/21 01:44 10 mg HS JENNY Administration NPO Date Last Intake of Fluids: 05/02/21 Time Last Intake of Fluids: 08:00 Last Intake of Fluids Comment: sip with meds Date Last Intake of Solids: 05/01/21 Time Last Intake of Solids: 12:00 Past Medical History Medical History Ambulatory dysfunction LIMITED MOBILITY D/T CHRONIC WEAKNESS PER PT & SON Anxiety Atrial fibrillation DX 8 YR AGO, HX CARDIOVERSION CHF (congestive heart failure) Chronic fatigue syndrome Gallbladder problem POSSIBLE PER PT...NO MEDICAL DX OF, NO EVAL FOR GI problem "INFLAMMATION OF DIGESTIVE TRACT" - PT DENIES MEDICAL DX OF DIGESTIVE PROBLEM SUCH IBS, CHRON'S, DIVERTICULTIS,COLITIS, ETC... History of anemia History of recurrent UTIs REPORTS HX BLADDER INFECTIONS - NONE CURRENT Hypothyroidism Lumbar facet joint syndrome Multinodular goiter ? HX OF Neck stiffness PT REPORTS ONGOING PROBLEM, POSTURE RELATED SOB (shortness of breath) on exertion Weakness CHRONIC Exercise / Class Metabolic Activity III < 4 Walking/Shop/Light housework Past Family History Family History Mother , age 83 with lung cancer and COPD Lung cancer COPD (chronic obstructive pulmonary disease) Family history of diabetes mellitus Father , in 70s of bladder cancer and COPD Bladder cancer COPD (chronic obstructive pulmonary disease) Family history of diabetes mellitus Brother Family history of diabetes mellitus Other Allergies Asthma Cancer Family history of bleeding disorder Family history of colon cancer in father Hearing loss Heart disease Hypertension Denies family history of Stroke Past Surgical History Surgical History H/O breast augmentation History of colonoscopy History of laparoscopy "LASER LAPARAOSCOPIES" S/P tooth extraction HX Past Anesthesia History No Hx of Anesthesia Complications and No Family Hx of Anesthesia Complications History of PONV No Hx of PONV and No Hx of Motion Sickness Social History Smoking Status: Never smoker Do You Dip or Chew Tobacco: No Hx Alcohol Use: No Hx Substance Use: No substance use type: does not use Physical Exam Vital Signs Last Vital Signs Temp 36.7 C 05/02/21 16:15 Pulse 74 05/02/21 16:15 Resp 18 05/02/21 16:15 BP 129/71 05/02/21 16:15 Pulse Ox 97 05/02/21 16:15 Constitutional + obese ENMT Mouth: + dentition abnormality and + dental caries Thyromental Distance: < 3.5 Finger Breadths Mallampati Class: II Neck normal visual inspection and trachea midline; neck extension not limited Respiratory normal respiratory effort Auscultation: lungs clear to auscultation bilaterally Cardiovascular Rate/Rhythm: + abnormal rate (irreg.) and + abnormal rhythm (irreg.) Heart Sounds: no murmur Vessels: no carotid bruit Musculoskeletal Spine: normal cervical ROM Extremities: extremities normal to inspection Neurologic moves all extremities Motor/Sensory: no sensory deficit Psychiatric Orientation: alert and oriented x 3 Testing Laboratory Results 05/01/21 07:18 05/02/21 07:11 PT 13.2 Seconds (9.0-12.0) H 04/30/21 19:09 INR 1.3 (0.9-1.1) H 04/30/21 19:09 APTT 33.7 Seconds (21.0-31.0) H 04/30/21 19:09 Electrocardiogram Date: 05/01/21 Findings: + AFIB @ (at 73;LAD;Low voltage QRS) Chest X-Ray Date: 04/30/21 Findings: + NAD and + cardiomegaly Echocardiogram Date: 01/26/20 EF: 50% LV Function: normal RWMA: + none Other Findings: + atrial enlargement (LA-mod. dilated;RA- mildly dilated) and + pertinent finding (RV sys. pressure 30-40 Torr) Valvular Disease: + AI (mild AR) and + MR (mild)
[2021-05-02] MEDS ORDERED: SURGICEL ABSORB HEMOSTAT 2IN X 14IN TOP ONE (17:30)
[2021-05-02] MEDS ORDERED: GLYCOPYRROLATE 0.2 MG/ML VIAL ONE (17:34)
[2021-05-02] MEDS ORDERED: NEOSTIGMINE METHYLSULFATE 1 MG/ML 10ML VIAL ONE (17:34)
--- NOTE | 2021-05-02 17:57 | Operative Report ---
PG Post Operative Report Pre & Post Diagnosis Operation Date: 05/02/21 09:00 Pre-Op Diagnosis: Necrotic Teeth and Bone upper left side Post-Op Diagnosis: Necrotic Teeth and Bone upper left side I identified the patient and participated in the time-out.: Yes Procedure Operation Date: 05/02/21 09:00 Actual Procedures p Extraction of Necrotic Teeth and Bone (Left) - Prince Nash DMD extraction of tooth # 12,13,15,16 debridement of necrotic bone upper left maxilla Surgeon Prince Nash DMD Gas Tender NONE Estimated Blood Loss 2 Findings Consistent with Post-Op Diagnosis CARIOUS TEETH, INFECTION AND NECROTIC BONE UPPER LEFT SIDE soft mushy black/gold bone Specimens NECROTIC BONE--BONE BLACK IN APPEARANCE Drains NONE Anesthesia Type General Complications none Indications severe pain, draining fistula loose teeth Description of Procedure Pre-op Infected, fractured and decayed teeth and necrotic infected bone upper l eft 12,13,15,16 M27.2 Osteomyelitis of the left posterior maxilla 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 A time out was take for patient ID, antibiotics, equipment and position verification once all agreed the procedure began. Local anesthesia was given into each area using Marcaine with a vasoconstrictor ( 1.8 ml x 2 ). A throat pack was placed after the oral cavity was irrigated with saline. Once a surgical level of anesthesia was obtained and the local anesthesia was given time for the blocks the surgery was started. I turned my attention to the upper left side Problem: Pain,swelling located---UPPER LEFT SIDE Finding: There is a carious, fractured and infected tooth at site#:12,13,15,16--teeth loose and extrusion of pus upon pressure Plan: Surgical removal of the following tooth/teeth: 12,13,15,16 aggressive curettement of the left posterior maxilla Procedure report: After a complete H&P/ vital signs and oral exam was completed the patient was ready for the surgical procedure. Informed consent was reviewed and the consent form was signed. I gave Eva time to ask any questions and if I explained the surgery that I will be performing to her understanding. The patient was positioned and light adjusted, Peridex mouth rinse was used and a final time out was taken to review the correct procedure, once agreed the local anesthesia was given in the standard fashion for the area of surgery. Local Anesthesia: Using 1.8 cc Xylocaine 2% with 1/100,000 epi as a block and 1 cc Articaine 4% with epi as an infiltration, profound anesthesia was obtained within 5-10 minutes. Surgical Note: Now using a periosteal elevator the tissue was reflected to expose the soft mushy alveolar bone. The rongeur was used to remove bone to allow the forceps to engage solid tooth structure. Using a controlled force the teeth were extracted in the standard manner. Once removed the roots were inspected and the socket was curetted. The roots were black and necrotic looking. The bone was very necrotic and porous,It had a black/gold tone and did not bleed. The loose bone was trimmed, in came out on chunks and I now curetted the loose bone until healthy bleeding bone was encountered. The rongeur was used to remove and reshape the necrotic bone until stable bone was reached. Once all the necrotic infected bone was removed the sockets and defects were filled with Surgicel and sutured with a 2-0 chromic. The bone was sent for pathology--I am expecting an acute/chronic osteomyelitis as the cause of the loose teeth, draining fistula and severe pain Sutures used:2-0 chromic A gauze pressure pack was placed over the socket and the patient was instructed to bite for 10 minutes. Post Op instructions: At this time I inspected the site: bleeding was controlled, instructions given by nursing staff (diet, oral care, use of gauze, follow up, pain management, activity, no driving if narcotics were Rx.) Discharge: The patient tolerated the local/extraction procedure extremely well Patient was discharged from the OR to the Recover Room. When all the teeth were removed I inspected the sites to insure all bleeding was controlled. I removed the throat pack and suctioned the throat. Bilateral gauze pressure dressings were placed. All instrument and sponge count was correct. the patient was allowed to awake from the anesthesia. Once full awake the anesthesia tube was removed and the patient was taken to the recovery room with all vital sign stable. The patient tolerated the surgery very well. I will see Eva tomorrow in room 276 Surgeon: Prince Nash [facility] Oral Maxillofacial Surgery [facility] I attest to the content of the Intraoperative Record and any orders documented therein. Any exceptions are noted below.
--- NOTE | 2021-05-02 18:04 | Anesthesiology Progress Note ---
Date of Service May 02, 2021 Anesthesia Post Procedure Vital Signs Vital Signs: Temp Pulse Pulse Pulse Resp BP BP 05/02/21 17:43 36.1 C L 91 H 16 155/100 H 05/02/21 16:15 36.7 C 74 18 129/71 05/02/21 15:17 67 05/02/21 15:06 36.6 C 80 18 116/74 05/02/21 11:07 36.6 C 76 18 113/74 05/02/21 07:19 37.1 C 70 18 127/79 05/02/21 03:37 36.5 C 71 18 122/83 05/01/21 23:47 71 05/01/21 22:39 36.5 C 82 18 122/73 05/01/21 19:00 36.4 C L 65 18 109/63 Pulse Ox 05/02/21 17:43 99 05/02/21 16:15 97 05/02/21 15:17 05/02/21 15:06 98 05/02/21 11:07 97 05/02/21 07:19 98 05/02/21 03:37 98 05/01/21 23:47 05/01/21 22:39 98 05/01/21 19:00 98 Pain Intensity Left Upper Mouth: Pain Intensity: 4 Left Chest: Pain Intensity: 4 Transfer of Care Handoff Completed per policy Notes Mental Status: alert / awake / arousable Patient Amnestic to Procedure: Yes Nausea / Vomiting: adequately controlled Pain: adequately controlled Airway Patency, RR, SpO2: stable & adequate BP & HR: stable & adequate Hydration State: stable & adequate Anesthetic Complications: no major complications apparent
--- NOTE | 2021-05-02 18:57 | Hospitalist Progress Note ---
Date of Service May 02, 2021 Assessment & Plan (1) Left-sided chest pain: Plan: MSK in nature. Cardiac issue has been ruled out She had negative serial troponins, ECG without ischemic changes Sed rate is normal, do not suspect pericarditis She declined to have nuclear medicine stress test She insists that this pain all over her body and her chest is secondary to inflammation from her infected teeth - ECHO in January with no WMA -Continue Lidoderm patches and Toradol IV prn Plan for tooth extraction today (2) Cracked tooth: Plan: Occurred in January per the patient - she endorses that she has been to a dentist and can not get an appointment until May - she does have chronic sinus pressure/pain- belive it is tooth 13 or 14- difficult assessment -She expresses that she has severe pain in the left upper teeth, several of which are broken -She is on chronic Augmentin for this reason I believe -Appreciate oral surgeon consultation-plan for tooth extraction today Continue pain control with IV Toradol and tramadol as needed (3) CKD (chronic kidney disease), stage III: Plan: CKD with acute kidney injury - 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 Alfonso Rangel- continue aleenaugh PCP upon dishcarge (5) Atrial fibrillation with RVR: Plan: Rate remains controlled - Continue Carvedilol - Continue Digoxin - Continue Diltiazem - Xarelto 20mg daily-continue to hold for tooth extraction-can restart on Thursday as per oral surgeon (6) Chronic systolic CHF (congestive heart failure): Plan: History of HFrEF with medication management returned EF to 50-60% - previously did not do well on Entresto- no clinical evidence of worsening - As above, continue carvedilol and restart EDAD inhibitor likely tomorrow Continue home Lasix She is euvolemic (7) Mitral regurgitation: Plan: As above - follow fluid volume status and symptomatology (8) Hypothyroidism: Plan: Continue Synthroid TSH was normal here in 10/2020 Plan: DVT prophylaxis-holding Xarelto Disposition-stay overnight for recovery after tooth extraction, will plan to discharge to home tomorrow if pain is controlled Admission and Anticipated Discharge Date Admission Date: May 02, 2021 Subjective Patient is awaiting tooth extraction today. She reports she still has some occasional pain in the chest but seems much improved from yesterday. Her bigges t concern is the pain in her upper left side of her mouth. She denies any other ongoing problems. Reports that the Toradol helped somewhat with pain. Telemetry with atrial fibrillation with rates in the 60s to 80s Review of Systems Review of Systems: All systems reviewed & are unremarkable except as noted in HPI & below Physical Exam Constitutional: WD/WN, vitals as above Eyes: + anicteric sclerae Neck: trachea midline, no thyromegaly Respiratory: normal respiratory effort, lungs clear to auscultation Cardiovascular: Rate/Rhythm: regular rate and + irregularly irregular Extremities: no edema Chest (Breasts): Chest: normal inspection of chest Gastrointestinal (Abdomen): normal bowel sounds, soft, nontender, no hepatosplenomegaly Musculoskeletal: Extremities: extremities normal to inspection; no cyanosis and no clubbing Skin: no rashes, warm and dry Neurologic: moves all extremities and awake; no focal motor deficits Psychiatric: A+Ox3, euthymic affect Lymphatic: no lymphedema Results & Data Results & Data ([facility]) Vital Signs (Past 12 Hours) Vital Signs Temp Pulse Pulse Pulse Resp BP BP 05/02/21 18:30 36.5 C 79 141/82 H 05/02/21 18:20 74 18 139/89 05/02/21 18:10 36.8 C 74 20 148/78 H 05/02/21 18:00 85 16 135/82 05/02/21 17:50 88 22 116/66 05/02/21 17:43 36.1 C L 91 H 16 155/100 H 05/02/21 16:15 36.7 C 74 18 129/71 05/02/21 15:17 67 05/02/21 15:06 36.6 C 80 18 116/74 05/02/21 11:07 36.6 C 76 18 113/74 05/02/21 07:19 37.1 C 70 18 127/79 Pulse Ox 05/02/21 18:30 100 05/02/21 18:20 100 05/02/21 18:10 100 05/02/21 18:00 100 05/02/21 17:50 100 05/02/21 17:43 99 05/02/21 16:15 97 05/02/21 15:17 05/02/21 15:06 98 05/02/21 11:07 97 05/02/21 07:19 98 Laboratory Results 05/01/21 07:18 05/02/21 07:11 PG Care Time/CCT Total # of Minutes Spent Total Time Spent with Patient: Total time spent is greater than 50% in coordination of care (as documented) at patient's floor/unit and/or counseling patient: Coding Level of Care Code 61605 Subseq Hosp Care Lvl 2 Diagnoses Left-sided chest pain R07.9 CKD (chronic kidney disease), stage III N18.30 Hypertrophy of both inferior nasal turbinates J34.3 Atrial fibrillation with RVR I48.91 Chronic systolic CHF (congestive heart failure) I50.22 Mitral regurgitation I34.0 Hypothyroidism E03.9 Cracked tooth K03.81
[2021-05-02] MEDS: ZOLPIDEM TARTRATE 10 MG TAB PO SCH (21:20)
[2021-05-03] MEDS ORDERED: KETOROLAC TROMETHAMINE 15 MG/ML VIAL IV ONE (00:38)
[2021-05-03] MEDS: KETOROLAC TROMETHAMINE 15 MG/ML VIAL IV PRN ×2 (04:00→10:24)
[2021-05-03] MEDS ORDERED: MoRPHine SULFATE 2 MG/ML CARP IV PRN (05:34)
[2021-05-03] MEDS: LEVOTHYROXINE SODIUM 112 MCG TABLET PO SCH (06:10)
[2021-05-03 06:51] LABS: BUN Creatinine Ratio 19.9 (10-20); Calcium 9.4 mg/dl (8.5-10.1); Creatinine Clr Calc Pharmacy 41.9 ml/min; Est GFR (African American) 41.7 ml/min; Est GFR (Non-African American) 35.9 ml/min; Potassium 4.5 mmol/L (3.5-5.1)
[2021-05-03] MEDS: FUROSEMIDE 40 MG TAB PO SCH (08:16)
[2021-05-03] MEDS: LIDOCAINE 5% 1 PATCH TD SCH (08:16)
[2021-05-03] MEDS: carvediloL 25 MG TAB PO SCH (08:17)
[2021-05-03] MEDS: dilTIAZem HCL 180 MG CAPCR PO SCH (08:17)
[2021-05-03] MEDS: traMADol HCL 50 MG TABLET PO SCH (08:17)
[2021-05-03] MEDS: ACETAMINOPHEN 500 MG TAB PO SCH ×2 (08:18→12:20)
[2021-05-03] MEDS: AMOXICILLIN/CLAVULANATE 250 MG TAB PO SCH ×2 (08:18→12:21)
--- NOTE | 2021-05-03 12:20 | Discharge Summary ---
Date of Service May 03, 2021 Admission HPI Per Admitting Provider 75 YOF with past medical history of: Afib(on Xarelto), chronic sinusitis (on Medrol 4mg), cracked tooth with history of tooth infection and abscess in October 2020. Patient comes in today for complaints of overall bodyaches to include chest pain that she says has been ongoing for months, and just got worse with hot and cold feelings all over. She reports that she has been putting "aspirin patches"(lidoderm patches) all around her chest for weeks. When talking with the EMD physician he states she told him her chest discomfort symptoms started on Thursday. The patient feels that this all started when she cracked her tooth and she "needs to be on her antibiotics all the time to keep the inflammation under control". Patient is on superintendent container terminal Augmentin for her chronic sinusitis. In the EMD the patient had routine lab work done, ECG, CXR performed. The pain she endorses to her left chest wall without radiation, this does not change with activity but comes and goes. She is unable to tell whether this effects her breathing. This has not been associated with nausea/vomiting and no radiation. She is unable to tell what makes this worse "my tooth started all this". Her ECG has no dynamic ST changes to it, but aberrancy and left axis deviation being present. Her initial Troponin I was negative. Patient was given a dose of Toradol in the EMD which she feels has made her better, but the pain all over is still present. Patient will be observed for changes in her symptoms/ecg/laboratory evaluation. She had an ECHO performed in January that had normal wall motion and EF 50-55%. She has had her COVID vaccine and her COVID test is NEGATIVE on admission. Principal Diagnosis Atypical chest pain-MSK, Dental infection now s/p tooth extraction Discharge Exam Constitutional WD/WN, vitals as above Eyes + anicteric sclerae ENMT multiple missing teeth left maxilla molars no erythema or bleeding, sutures in place Neck trachea midline, no thyromegaly Respiratory normal respiratory effort, lungs clear to auscultation Cardiovascular Rate/Rhythm: regular rate and + irregularly irregular Extremities: no edema Chest (Breasts) Chest: normal inspection of chest Gastrointestinal (Abdomen) normal bowel sounds, soft, nontender, no hepatosplenomegaly Musculoskeletal Extremities: extremities normal to inspection; no cyanosis and no clubbing Skin no rashes, warm and dry Neurologic moves all extremities and awake; no focal motor deficits Psychiatric A+Ox3, euthymic affect Lymphatic no lymphedema Discharge Data Allergies Allergy/AdvReac Type Severity Reaction Status Date / Time gabapentin Allergy Unknown MULTIPLE Verified 04/30/21 21:53 REACTIONS "COULD GO ON AND ON" - SEE NOTES oxycodone Allergy Unknown MULTIPLE Verified 04/30/21 21:53 REACTIONS "COULD GO ON AND ON" - SEE NOTES codeine AdvReac Unknown SEVERE GI Verified 04/30/21 21:53 SYMPTOMS Consultations 05/01/21 10:08 Consult Oromaxillofacial Surgery Routine Procedures Performed Operation Date: 05/02/21 09:00 Actual Procedures p Extraction of Nectrotic Teeth and Bone (Left) - Prince Nash, DMD Hospital Course (1) Left-sided chest pain: MSK in nature. Cardiac issue has been ruled out She had negative serial troponins, ECG without ischemic changes Sed rate is normal, do not suspect pericarditis She declined to have nuclear medicine stress test She insists that this pain all over her body and her chest is secondary to inflammation from her infected teeth Pain has improved since admission - ECHO in January with no WMA -received Lidoderm patches and Toradol IV prn but would not continue any further NSAIDs given CKD-discussed with pt now s/p tooth extraction 05/02 (2) Cracked tooth: Occurred in January per the patient - she endorses that she has been to a dentist and can not get an appointment until May - she does have chronic sinus pressure/pain- now s/p extraction of teeth #12,13,15,16. 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 Alfonso Rangel- continue through PCP upon discharge (5) Atrial fibrillation with RVR: Rate remains controlled - Continue Carvedilol - Continue Digoxin - Continue Diltiazem - Xarelto 20mg daily-ok to restart now post-op (6) Chronic systolic CHF (congestive heart failure): History of HFrEF with medication management returned EF to 50-60% - previously did not do well on Entresto- no clinical evidence of worsening - As above, continue carvedilol and restart EDDA inhibitor Continue home Lasix She is euvolemic (7) Mitral regurgitation: As above - follow fluid volume status and symptomatology (8) Hypothyroidism: Continue Synthroid TSH was normal here in 10/2020 DVT prophylaxis-holding Xarelto and was ambulating frequently Disposition-stable for dc to home today Total Time Total Time Spent Total Time Spent (In Minutes): 35 min Discharge Plan Discharge Items Patient Disposition: Home - Self-Care Reason For Visit: CHEST PAIN RUNE OUT ISCHEMIA Discharge Diagnosis: Chest pain-atypical, noncardiac Dental infection with multiple teeth extracted Condition on Discharge: Good Activity: As commented below Non-emergency contact: Primary Care Provider and Surgeon Call non-emergency contact if: you have any medication questions, your symptoms worsen, your pain is not controlled and you have a fever Follow-up/Referrals: Prince Nash DMD [Physician] - (Please follow up in 2 weeks) Qasim Rangel MD [Primary Care Provider] - (Please follow up within 1-2 weeks.) Diet: Heart Healthy Diet Texture: Easy to Chew Addtl Attending Provider Instructions: ADDITIONAL ACTIVITY RECOMMENDATIONS: * [place] teeth after every meal. It is very important to keep your mouth clean to prevent infection. * Starting tonight rinse with the Peridex as directed then 2 x a day * it is very important to keep well hydrated, this prevents fever and possible dry socket pain SPECIAL CARE INSTRUCTIONS: *It is not uncommon that between day 2-4 that your swelling will be at its worst this is very normal, do not be alarmed. * Keep ice on the side of your face for the next 24 to 36 hours. This will help keep the swelling down. * After 36 hours, apply heat (hot water bottle or heating pad) for the next two days, as often as possible. * Tomorrow start rinsing your mouth with 1/2 teaspoon salt in 8 ounces warm water. This rinse should be used every 4-6 hours. * You may experience slight nausea. To prevent this, never take your medication on an empty stomach. If nauseated, take small sips of frieda aspen until you feel better; then you may start on applesauce and toast. * Some swelling is common. It should gradually decrease within 4-5 days. * A certain amount of bleeding is to be expected. It is often possible to control mild oozing by placing folded gauze over the area and biting down for 30 minutes. If you are unable to control excessive bleeding, call Dr Nash at [phone] * You may experience some discomfort for a few days. If pain or swelling increases, Call Dr Nash * Return to the office for a follow up check up if one was given to you. * If you do not have a follow up appointment please call the office at [phone] and set one up for 10-15 days after your surgery Addtl Pickup Driver Provider Instructions: Your chest pain is not due to a problem with your heart. It is musculoskeletal in nature. You can continue taking tramadol and/or acetaminophen as needed for pain, but I would NOT recommend taking any NSAIDs (antiinflammatory drugs such as ibuprofen, Advil,Motrin, Aleve, naproxen, etc.) as these can harm your kidneys. Pending Studies at Discharge: No Stand-Alone Forms: My [facility] Medications and DC Order Prescriptions: Continued digoxin 125 mcg (0.125 mg) tablet 125 mcg PO DAILY@1600 RF: 0 carvedilol 25 mg tablet 25 mg PO BID RF: 0 furosemide 40 mg tablet 40 mg PO QAM RF: 0 levothyroxine 112 mcg tablet 112 mcg PO QAM RF: 0 Xarelto 20 mg tablet 20 mg PO DAILY@1600 RF: 0 diltiazem HCl [Cartia XT] 180 mg capsule,extended release 24hr 180 mg PO QAM RF: 0 zolpidem 10 mg tablet 10 mg PO HS RF: 0 lisinopril 40 mg tablet 40 mg PO QAM RF: 0 ondansetron HCl 8 mg tablet 8 mg PO TID PRN (Reason: Nausea And Vomiting) RF: 0 amoxicillin-pot clavulanate 250-125 mg tablet 3 tab PO TID RF: 0 acetaminophen [Tylenol Extra Strength] 500 mg Tablet 500 mg PO QID RF: 0 Changed tramadol [Ultram] 50 mg tablet 50 - 100 mg PO Q8H PRN (Reason: pain) Qty: 0 RF: 0 Discharge Orders: Discharge Order (Routine); Ordered 05/03/21 Ordered By: Lali Coates Admission Data Admit Date/Time: 05/02/21 16:09 Attending Provider: Lali Coates Admit Provider: Nano Herman Primary Care Provider: Qasim Rangel Other Providers: Prince Nash Coding Level of Care Code D/C DAY MANAGEMENT >30 MINS Diagnoses Left-sided chest pain R07.9 Cracked tooth K03.81 CKD (chronic kidney disease), stage III N18.30 Hypertrophy of both inferior nasal turbinates J34.3 Atrial fibrillation with RVR I48.91 Chronic systolic CHF (congestive heart failure) I50.22 Mitral regurgitation I34.0 Hypothyroidism E03.9
== END 2021-05-03 15:21 | disposition home or self-care (01) | DRG 144 ==
LOC: ED 18:52 → 2N 18:52 → SUATTDRO 22:10 → 2N 23:31

== ENCOUNTER 2021-12-15 18:02 | Inpatient (IN) ==
--- NOTE | 2021-12-15 18:26 | Emergency Department Note ---
History of Present Illness General Chief complaint: Knee Injury/Pain Time Seen by Provider: 12/15/21 18:15 Source: patient and family (Son) Mode of arrival: EMS Limitations: no limitations History of Present Illness Maximum Pain Intensity: 10 This patient is a 76-year-old female who has multiple medical problems including CHF, coronary artery disease, A. fib on Xarelto, chronic skin and pain issues, comes in with bilateral leg pain she says started last night she apparently took oxycodone prior to arrival she says it is both of her legs. She cannot walk secondary to the pain. She has had no fall. No fever chills or cough. No chest pain. She forgot her hearing aids and is very difficult to communicate wi th. I did talk to her son who she says talks for her. He says that she has had knee pain for about 3 days has been in both of her knees he denies that she had any trauma they have tried ice and topical medications. She seemed a little bit loopy yesterday he does not control her medications and does not think she took any extra Oxy IR. She is not taking any extra Tylenol. She has had no new in continence she does have some mild incontinence at baseline. No swelling in her legs. No chest pain or shortness of breath no fever. No numbness or weakness of legs just more pain Home Medications Medication Instructions Recorded Confirmed Type furosemide 40 mg tablet (Lasix) 40 mg PO QAM 11/30/18 12/15/21 History levothyroxine 112 mcg tablet 112 mcg PO QAM 11/30/18 12/15/21 History (Synthroid) digoxin 125 mcg (0.125 mg) tablet 125 mcg PO PM 07/07/19 12/15/21 History (Lanoxin) diltiazem HCl 180 mg 180 mg PO QAM 12/11/19 12/15/21 History capsule,extended release 24 hr (Cartia XT) lisinopril 40 mg tablet (Zestril) 40 mg PO QAM 12/11/19 12/15/21 History carvedilol 25 mg tablet (Coreg) 25 mg PO BID 04/22/20 12/15/21 History acetaminophen 500 mg tablet 1,000 mg PO Q6 PRN 04/30/21 12/15/21 History (Tylenol Extra Strength) rivaroxaban 20 mg tablet (Xarelto) 20 mg PO PM 06/03/21 12/15/21 History benzonatate 100 mg capsule 100 mg PO TID PRN 06/20/21 12/15/21 History clindamycin phosphate 1 % topical 1 applic TOPICAL HS 06/20/21 12/15/21 History solution zolpidem 12.5 mg tablet,extended 12.5 mg PO HS PRN 06/20/21 12/15/21 History release,multiphase diclofenac sodium 1 % topical gel 4 g TOPICAL QID PRN 10/24/21 12/15/21 History clindamycin HCl 150 mg capsule 150 mg PO QID cap 11/05/21 12/15/21 History duloxetine 30 mg capsule,delayed 30 mg PO DAILY #30 cap 11/05/21 12/15/21 Rx release (Cymbalta) oxycodone 5 mg capsule 5 mg PO TID PRN cap 11/05/21 12/15/21 History alprazolam 0.5 mg tablet 0.5 mg PO TID PRN 12/15/21 12/15/21 History benzocaine 20 % mucosal gel 1 ea MUCOUS MEMBRANE DIRECTED 12/15/21 12/15/21 History PRN cyproheptadine 2 mg/5 mL oral syrup 2 mg PO DAILY PRN 12/15/21 12/15/21 History dexamethasone 0.5 mg/5 mL oral 1 mg PO DAILY 12/15/21 12/15/21 History solution docusate sodium 100 mg capsule 200 mg PO DAILY 12/15/21 12/15/21 History (Colace) melatonin 1 mg tablet 1 mg PO HS PRN 12/15/21 12/15/21 History meloxicam 7.5 mg tablet 7.5 mg PO DAILY PRN 12/15/21 12/15/21 History ondansetron 4 mg disintegrating 4 mg PO BID PRN 12/15/21 12/15/21 History tablet spironolactone 25 mg tablet 25 mg PO DAILY 12/15/21 12/15/21 History Allergies Allergy/AdvReac Type Severity Reaction Status Date / Time gabapentin Allergy Unknown MULTIPLE Verified 12/15/21 18:51 REACTIONS "COULD GO ON AND ON" - SEE NOTES codeine AdvReac Intermediate SEVERE GI Verified 12/15/21 18:51 SYMPTOMS Past Med/Surg History Medical History Ambulatory dysfunction LIMITED MOBILITY D/T CHRONIC WEAKNESS PER PT & SON Anxiety Atrial fibrillation DX 8 YR AGO, HX CARDIOVERSION Atrial fibrillation with RVR no pacer> follows with Dr. March > stable CHF (congestive heart failure) Chronic fatigue syndrome Chronic pain CKD (chronic kidney disease), stage III Gallbladder problem POSSIBLE PER PT...NO MEDICAL DX OF, NO EVAL FOR GI problem "INFLAMMATION OF DIGESTIVE TRACT" - PT DENIES MEDICAL DX OF DIGESTIVE PROBLEM SUCH IBS, CHRON'S, DIVERTICULTIS,COLITIS, ETC... Headache History of anemia History of recurrent UTIs REPORTS HX BLADDER INFECTIONS - NONE CURRENT Hypothyroidism Lumbar facet joint syndrome Multinodular goiter ? HX OF Neck stiffness PT REPORTS ONGOING PROBLEM, POSTURE RELATED SOB (shortness of breath) on exertion TIA (transient ischemic attack) pt reports was stroke like symptoms but was related to being sick, not actual TIA Weakness CHRONIC Surgical History H/O breast augmentation History of colonoscopy History of laparoscopy "LASER LAPARAOSCOPIES" S/P tooth extraction HX Family History Mother , age 83 with lung cancer and COPD Lung cancer COPD (chronic obstructive pulmonary disease) Family history of diabetes mellitus Father , in 70s of bladder cancer and COPD Bladder cancer COPD (chronic obstructive pulmonary disease) Family history of diabetes mellitus Brother Family history of diabetes mellitus Other Allergies Asthma Cancer Family history of bleeding disorder Family history of colon cancer in father Hearing loss Heart disease Hypertension Denies family history of Stroke Social History Smoking Status: Never smoker Second Hand Exposure: No; Hx Alcohol Use: No Hx Substance Use: No Preferred Language: Chinese Communication Ability: Effective Visual Impairment: No Limitations Learning And Development Administrator Required: No Beliefs That Will Affect Care: None marital status: Current Living Situation: Family Current Living Situation Comment: lives with son current occupational status: retired and disabled How many Children do You have: 2 Other Information That Helps Us Care for You: No other: Disabled in her 50s. 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 Safe at Home: Yes Safety Concerns: Feels Safe At This Time Assistive Devices: Glasses, Hearing Aid - Bilateral and Wheelchair Review of Systems A total of 10 systems reviewed and were otherwise negative Physical Exam Vital Signs Vital Signs - 24 hr 12/15/21 18:12 12/15/21 18:27 12/15/21 18:45 Temperature 36.7 C Temperature Source Oral Pulse Rate 74 63 Pulse Rate [Apical] 67 Pulse Rhythm [Apical] Pulse Strength [Apical] Respiratory Rate 18 16 16 Respiratory Effort / Characteristics Non-Labored Spontaneous Respiratory Depth Normal Blood Pressure 100/61 Blood Pressure [Left Arm] 118/69 Blood Pressure Mean 74 Blood Pressure Mean [Left Arm] 85 Blood Pressure Position [Left Arm] Pulse Oximetry 98 97 100 Oxygen Delivery Method Room Air Sepsis Recent Fever Within 48 Hours No Sepsis New/Unexplained Change in Mental Status N/A Sepsis Action Taken by Nursing No Action Required 12/15/21 20:00 Temperature 36.8 C Temperature Source Oral Pulse Rate Pulse Rate [Apical] 73 Pulse Rhythm [Apical] Regular Pulse Strength [Apical] Normal Respiratory Rate 20 Respiratory Effort / Characteristics Non-Labored Respiratory Depth Normal Blood Pressure Blood Pressure [Left Arm] 105/56 L Blood Pressure Mean Blood Pressure Mean [Left Arm] 72 Blood Pressure Position [Left Arm] Semi-fowlers Pulse Oximetry Oxygen Delivery Method Sepsis Recent Fever Within 48 Hours Sepsis New/Unexplained Change in Mental Status Sepsis Action Taken by Nursing General: Well developed well nourished older female who appears in no acute distress, breathing comfortably on room air. Normal speech HEENT: Normal cephalic atraumatic. Pupils are equal round and reactive to light. Extraocular movements are intact. Oropharynx is pink with moist mucous membranes. No swelling of the mouth lips or tongue. Neck: Supple with a midline trachea. No meningeal signs or stiffness, no JVD or bruits. No Stridor. Chest: Clear to auscultation bilaterally. No wheezes or rhonchi. No increased work of breathing. Heart: Regular rate and rhythm without murmurs or gallops. Abdomen: Soft nontender, nondistended without rebound guarding or rigidity. Extremities: No cyanosis clubbing or edema. No calf tenderness or assymetry. There is no redness or warmth of the knees or calves. Good distal pulses. Spine/Back. Non tender to palpation. No CVA tenderness Skin: Good turgor. She has chronic skin changes on her face and extremities. Neurologic exam: Cranial nerves two through 12 are intact. Motor and sensation are intact and symmetrical throughout. Course Administered Medications Discontinued Medications Furosemide (Furosemide Inj 20 Mg/2 Ml Vial) 20 mg IV ONE ONE Stop: 12/16/21 00:50 Last Admin: 12/16/21 01:35 Dose: 20 mg Documented by: [id number] Medical Decision Making Differential Diagnosis DVT, arthritis, infection, cardiac disease, electrolyte or metabolic abnormality Medical Records Attestation: I reviewed the patient's medical records. Home Medications Current Medication List: was personally reviewed by me Laboratory Data Attestation: I reviewed the patient's lab results. Result diagrams: 12/15/21 18:18 12/15/21 18:18 Lab Results 12/15/21 12/15/21 12/15/21 Range/Units 18:18 18:18 18:18 WBC 7.29 (4.8-10.8) K/uL RBC 3.67 L (4.2-5.4) M/uL Hgb 11.8 L (12.0-16.0) g/dL Hct 35.4 L (37-47) % MCV 96.5 (80-100) fL MCH 32.2 (25-34) pg MCHC 33.3 (32-36) g/dL RDW Std Deviation 51.6 H (36.4-46.3) fL RDW Coeff of [place] 14.6 H (11.5-14.5) % Plt Count 305 (130-400) K/uL MPV 10.3 (7.4-10.4) fL Immature Gran % (Auto) 0.3 % Neut % (Auto) 71.9 % Lymph % (Auto) 15.9 % [place] % (Auto) 11.1 % Eos % (Auto) 0.5 % Baso % (Auto) 0.3 % Neut # (Auto) 5.24 (1.4-6.5) K/uL Lymph # (Auto) 1.16 L (1.2-3.4) K/uL [place] # (Auto) 0.81 H (0.11-0.59) K/uL Eos # (Auto) 0.04 (0-0.5) K/uL Baso # (Auto) 0.02 (0-0.2) K/uL Immature Gran # (Auto) 0.02 (0.00-0.02) K/uL ESR (0-30) mm/hr PT 12.5 H (9.0-12.0) Seconds INR 1.2 H (0.9-1.1) APTT 28.5 (21.0-31.0) Seconds PTT Ratio 1.0 Sodium 137 (136-145) mmol/L Potassium 3.9 (3.5-5.1) mmol/L Chloride 98 (98-107) mmol/L Carbon Dioxide 28 (21-32) mmol/L Anion Gap 11 (3-11) BUN 48 H (6-23) mg/dl Creatinine 1.52 H (0.6-1.2) mg/dl Est Cr Clr Drug Dosing 36.6 ml/min Est GFR ( Amer) 38.7 ml/min Est GFR (Non-Af Amer) 33.4 ml/min BUN/Creatinine Ratio 31.6 H (10-20) Glucose 97 (70-99(Fasting)) mg/dl Uric Acid 12.1 H (2.6-7.2) mg/dl Calcium 9.2 (8.5-10.1) mg/dl Phosphorus (2.5-4.9) mg/dl Magnesium (1.7-2.4) mg/dl Total Bilirubin 0.5 (0.2-1.0) mg/dl AST 27 (13-39) U/L ALT 26 (7-52) U/L Alkaline Phosphatase 66 (34-104) U/L Total Creatine Kinase (26-192) U/L Troponin I High Sens 8.9 (0-14) pg/ml C-Reactive Protein (0-0.5) mg/dl B-Natriuretic Peptide (0-100) pg/ml Total Protein 7.2 (6.0-8.3) gm/dl Albumin 3.8 (3.4-5.0) gm/dl Globulin 3.4 (2.5-4.0) gm/dl Albumin/Globulin Ratio 1.1 (0.9-2) TSH (0.300-4.500) uIu/ml Urine Color Urine Appearance (Clear) Urine pH (4.5-7.5) Ur Specific [place] (1.000-1.030) Urine Protein (Negative) Urine Glucose (UA) (Negative) Urine Ketones (Negative) Urine Blood (Negative) Urine Nitrite (Negative) Urine Bilirubin (Negative) Urine Urobilinogen (Negative) Ur Leukocyte Esterase (Negative) Urine WBC (Auto) (0-5) /hpf Urine RBC (Auto) (0-4) /hpf U Hyaline Cast (Auto) (0-5) /lpf U Epithel Cells (Auto) (0-5) /lpf Urine Bacteria (Auto) (Negative) Digoxin (0.8-2.0) ng/ml Salicylates (3.0-30) mg/dl Acetaminophen (10-30) ug/ml SARS-CoV-2, RNA, NAAT (NEGATIVE) 12/15/21 12/15/21 12/15/21 Range/Units 18:18 18:18 18:18 WBC (4.8-10.8) K/uL RBC (4.2-5.4) M/uL Hgb (12.0-16.0) g/dL Hct (37-47) % MCV (80-100) fL MCH (25-34) pg MCHC (32-36) g/dL RDW Std Deviation (36.4-46.3) fL RDW Coeff of [place] (11.5-14.5) % Plt Count (130-400) K/uL MPV (7.4-10.4) fL Immature Gran % (Auto) % Neut % (Auto) % Lymph % (Auto) % [place] % (Auto) % Eos % (Auto) % Baso % (Auto) % Neut # (Auto) (1.4-6.5) K/uL Lymph # (Auto) (1.2-3.4) K/uL [place] # (Auto) (0.11-0.59) K/uL Eos # (Auto) (0-0.5) K/uL Baso # (Auto) (0-0.2) K/uL Immature Gran # (Auto) (0.00-0.02) K/uL ESR 56 H (0-30) mm/hr PT (9.0-12.0) Seconds INR (0.9-1.1) APTT (21.0-31.0) Seconds PTT Ratio Sodium (136-145) mmol/L Potassium (3.5-5.1) mmol/L Chloride (98-107) mmol/L Carbon Dioxide (21-32) mmol/L Anion Gap (3-11) BUN (6-23) mg/dl Creatinine (0.6-1.2) mg/dl Est Cr Clr Drug Dosing ml/min Est GFR ( Amer) ml/min Est GFR (Non-Af Amer) ml/min BUN/Creatinine Ratio (10-20) Glucose (70-99(Fasting)) mg/dl Uric Acid (2.6-7.2) mg/dl Calcium (8.5-10.1) mg/dl Phosphorus (2.5-4.9) mg/dl Magnesium (1.7-2.4) mg/dl Total Bilirubin (0.2-1.0) mg/dl AST (13-39) U/L ALT (7-52) U/L Alkaline Phosphatase (34-104) U/L Total Creatine Kinase 246 H (26-192) U/L Troponin I High Sens (0-14) pg/ml C-Reactive Protein 1.57 H (0-0.5) mg/dl B-Natriuretic Peptide (0-100) pg/ml Total Protein (6.0-8.3) gm/dl Albumin (3.4-5.0) gm/dl Globulin (2.5-4.0) gm/dl Albumin/Globulin Ratio (0.9-2) TSH 0.551 (0.300-4.500) uIu/ml Urine Color Urine Appearance (Clear) Urine pH (4.5-7.5) Ur Specific [place] (1.000-1.030) Urine Protein (Negative) Urine Glucose (UA) (Negative) Urine Ketones (Negative) Urine Blood (Negative) Urine Nitrite (Negative) Urine Bilirubin (Negative) Urine Urobilinogen (Negative) Ur Leukocyte Esterase (Negative) Urine WBC (Auto) (0-5) /hpf Urine RBC (Auto) (0-4) /hpf U Hyaline Cast (Auto) (0-5) /lpf U Epithel Cells (Auto) (0-5) /lpf Urine Bacteria (Auto) (Negative) Digoxin (0.8-2.0) ng/ml Salicylates (3.0-30) mg/dl Acetaminophen (10-30) ug/ml SARS-CoV-2, RNA, NAAT (NEGATIVE) 12/15/21 12/15/21 12/15/21 Range/Units 18:18 18:43 20:23 WBC (4.8-10.8) K/uL RBC (4.2-5.4) M/uL Hgb (12.0-16.0) g/dL Hct (37-47) % MCV (80-100) fL MCH (25-34) pg MCHC (32-36) g/dL RDW Std Deviation (36.4-46.3) fL RDW Coeff of [place] (11.5-14.5) % Plt Count (130-400) K/uL MPV (7.4-10.4) fL Immature Gran % (Auto) % Neut % (Auto) % Lymph % (Auto) % [place] % (Auto) % Eos % (Auto) % Baso % (Auto) % Neut # (Auto) (1.4-6.5) K/uL Lymph # (Auto) (1.2-3.4) K/uL [place] # (Auto) (0.11-0.59) K/uL Eos # (Auto) (0-0.5) K/uL Baso # (Auto) (0-0.2) K/uL Immature Gran # (Auto) (0.00-0.02) K/uL ESR (0-30) mm/hr PT (9.0-12.0) Seconds INR (0.9-1.1) APTT (21.0-31.0) Seconds PTT Ratio Sodium (136-145) mmol/L Potassium (3.5-5.1) mmol/L Chloride (98-107) mmol/L Carbon Dioxide (21-32) mmol/L Anion Gap (3-11) BUN (6-23) mg/dl Creatinine (0.6-1.2) mg/dl Est Cr Clr Drug Dosing ml/min Est GFR ( Amer) ml/min Est GFR (Non-Af Amer) ml/min BUN/Creatinine Ratio (10-20) Glucose (70-99(Fasting)) mg/dl Uric Acid (2.6-7.2) mg/dl Calcium (8.5-10.1) mg/dl Phosphorus 3.8 (2.5-4.9) mg/dl Magnesium 2.3 (1.7-2.4) mg/dl Total Bilirubin (0.2-1.0) mg/dl AST (13-39) U/L ALT (7-52) U/L Alkaline Phosphatase (34-104) U/L Total Creatine Kinase (26-192) U/L Troponin I High Sens (0-14) pg/ml C-Reactive Protein (0-0.5) mg/dl B-Natriuretic Peptide 259 H (0-100) pg/ml Total Protein (6.0-8.3) gm/dl Albumin (3.4-5.0) gm/dl Globulin (2.5-4.0) gm/dl Albumin/Globulin Ratio (0.9-2) TSH (0.300-4.500) uIu/ml Urine Color Urine Appearance (Clear) Urine pH (4.5-7.5) Ur Specific [place] (1.000-1.030) Urine Protein (Negative) Urine Glucose (UA) (Negative) Urine Ketones (Negative) Urine Blood (Negative) Urine Nitrite (Negative) Urine Bilirubin (Negative) Urine Urobilinogen (Negative) Ur Leukocyte Esterase (Negative) Urine WBC (Auto) (0-5) /hpf Urine RBC (Auto) (0-4) /hpf U Hyaline Cast (Auto) (0-5) /lpf U Epithel Cells (Auto) (0-5) /lpf Urine Bacteria (Auto) (Negative) Digoxin (0.8-2.0) ng/ml Salicylates (3.0-30) mg/dl Acetaminophen (10-30) ug/ml SARS-CoV-2, RNA, NAAT NEGATIVE (NEGATIVE) 12/15/21 12/15/21 Range/Units 20:26 22:41 WBC (4.8-10.8) K/uL RBC (4.2-5.4) M/uL Hgb (12.0-16.0) g/dL Hct (37-47) % MCV (80-100) fL MCH (25-34) pg MCHC (32-36) g/dL RDW Std Deviation (36.4-46.3) fL RDW Coeff of [place] (11.5-14.5) % Plt Count (130-400) K/uL MPV (7.4-10.4) fL Immature Gran % (Auto) % Neut % (Auto) % Lymph % (Auto) % [place] % (Auto) % Eos % (Auto) % Baso % (Auto) % Neut # (Auto) (1.4-6.5) K/uL Lymph # (Auto) (1.2-3.4) K/uL [place] # (Auto) (0.11-0.59) K/uL Eos # (Auto) (0-0.5) K/uL Baso # (Auto) (0-0.2) K/uL Immature Gran # (Auto) (0.00-0.02) K/uL ESR (0-30) mm/hr PT (9.0-12.0) Seconds INR (0.9-1.1) APTT (21.0-31.0) Seconds PTT Ratio Sodium (136-145) mmol/L Potassium (3.5-5.1) mmol/L Chloride (98-107) mmol/L Carbon Dioxide (21-32) mmol/L Anion Gap (3-11) BUN (6-23) mg/dl Creatinine (0.6-1.2) mg/dl Est Cr Clr Drug Dosing ml/min Est GFR ( Amer) ml/min Est GFR (Non-Af Amer) ml/min BUN/Creatinine Ratio (10-20) Glucose (70-99(Fasting)) mg/dl Uric Acid (2.6-7.2) mg/dl Calcium (8.5-10.1) mg/dl Phosphorus (2.5-4.9) mg/dl Magnesium (1.7-2.4) mg/dl Total Bilirubin (0.2-1.0) mg/dl AST (13-39) U/L ALT (7-52) U/L Alkaline Phosphatase (34-104) U/L Total Creatine Kinase (26-192) U/L Troponin I High Sens (0-14) pg/ml C-Reactive Protein (0-0.5) mg/dl B-Natriuretic Peptide (0-100) pg/ml Total Protein (6.0-8.3) gm/dl Albumin (3.4-5.0) gm/dl Globulin (2.5-4.0) gm/dl Albumin/Globulin Ratio (0.9-2) TSH (0.300-4.500) uIu/ml Urine Color Yellow Urine Appearance Clear (Clear) Urine pH 6.5 (4.5-7.5) Ur Specific [place] 1.014 (1.000-1.030) Urine Protein Negative (Negative) Urine Glucose (UA) Negative (Negative) Urine Ketones Negative (Negative) Urine Blood Negative (Negative) Urine Nitrite Negative (Negative) Urine Bilirubin Negative (Negative) Urine Urobilinogen Negative (Negative) Ur Leukocyte Esterase 2+ H (Negative) Urine WBC (Auto) 10-30 H (0-5) /hpf Urine RBC (Auto) 0-4 (0-4) /hpf U Hyaline Cast (Auto) 1-5 (0-5) /lpf U Epithel Cells (Auto) 10-20 H (0-5) /lpf Urine Bacteria (Auto) Negative (Negative) Digoxin 1.2 (0.8-2.0) ng/ml Salicylates < 3.0 L (3.0-30) mg/dl Acetaminophen 3 L (10-30) ug/ml SARS-CoV-2, RNA, NAAT (NEGATIVE) Imaging Data Attestation: I personally reviewed and interpreted this imaging study as follows: My Impression: Chest x-ray Cardiomegaly but no definite pneumonia or pneumothorax. No overt CHF. Bilateral knee x-raysno fracture or dislocation seen Radiologist's Impression: Chest X-Ray 12/15/21 18:27 XR chest 1V portable CLINICAL HISTORY: weakness COMPARISON STUDY: Chest radiograph July 08, 2021. Chest CT May 29, 2021. FINDINGS: Lung volumes are normal. Lungs are clear. There is no pneumothorax or pleural effusion. Moderate cardiomegaly is unchanged. Mediastinal contours are normal. There is no evidence for pulmonary edema. Old right seventh rib fracture is incidentally noted. IMPRESSION: No acute cardiopulmonary findings. Stable cardiomegaly. ACT 112: Negative or not required by law. Electronically signed by: Clarence Mcadams M.D. 12/15/2021 7:38 PM Knee X-Ray 12/15/21 18:34 XR knee LT 1 or 2V routine CLINICAL HISTORY: Left knee pain following fall. COMPARISON: None FINDINGS: Alignment of left knee is anatomic. There is no acute fracture. No joint effusion. Superior patellar spurring is chronic. There is mild to moderate medial and patellofemoral compartment osteoarthritis. IMPRESSION: 1. No acute fracture or joint effusion of the left knee. 2. Mild to moderate medial and patellofemoral compartment osteoarthritis. ACT 112: Negative or not required by law. Electronically signed by: Clarence Mcadams M.D. 12/15/2021 7:35 PM Knee X-Ray 12/15/21 18:34 XR knee RT 1 or 2V routine CLINICAL HISTORY: Bilateral knee pain following fall. COMPARISON: Right femur radiographs November 27, 2017. FINDINGS: Alignment of the right knee is anatomic. There is no acute fracture. No evidence for a joint effusion. Superior spurring of the patella is noted. Mild to moderate medial and patellofemoral compartment osteoarthritis is present. IMPRESSION: 1. No acute fracture or joint effusion of the right knee. 2. Mild to moderate medial and patellofemoral compartment osteoarthritis. ACT 112: Negative or not required by law. Electronically signed by: Clarence Mcadams M.D. 12/15/2021 7:34 PM ECG Data Attestation: I personally reviewed and interpreted this ECG as follows: Indication: + weakness Rate (beats per minute): 70 Rhythm: + atrial fibrillation ECG Intervals/blocks: + Normal QRS and + Normal QT ECG [place]: + Normal ECG Findings: + Poor R wave progression and + Other (Low voltage. Nonspecific T wave abnormalities) Comparison ECG Date: from (07/08/21) Change: no significant change MDM Narrative This patient comes in after an bilateral knee pain due to no fall or trauma she is neurologically neurovascularly intact. she does have a very complex medical history. She has had bilateral knee pain. I did order x-rays as well as ultrasounds and blood work given her complex history. She has stable vital signs afebrile. Her EKG shows chronic A. fib that is chronically low voltage as well. No definite ischemic changes when compared to EKG #1. COVID testing was negative. Chest x-ray does not show any pneumonia. X-rays were unremarkable for any fractures. Ultrasound shows no evidence of DVT. Her uric acid is mildly elevated and this could be gout related. She is nothing to just infection so far. Her son and the patient also states she may have taken her meds incorrectly so I did add a Tylenol level and it was negative. I do think she needs to be admitted/observe for further inpatient treatment and evaluation and pain management. I have consulted Dr. Herman to see the patient in the ED. 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 Upon my interpretation the patient was noted to be normal sinus rhythm with a rate of 70 Impression & Plan Weakness, Acute bilateral knee pain, Elevated blood uric acid level, Chronic a- fib Discharge Plan Visit Data Chief Complaint: Knee Injury/Pain ED Provider: Tj Haji Discharge Problem: Weakness, Acute bilateral knee pain, Elevated blood uric acid level, Chronic a- fib Patient Disposition: Admitted As Inpatient Discharge Instructions Interventions: ED Discharge Assessment Last Done: 12/16/21 00:05
[2021-12-15 19:33] LABS: Basophils # (auto) 0.02 K/uL (0-0.2); Basophils % (auto) 0.3 %; Eosinophils # (auto) 0.04 K/uL (0-0.5); Eosinophils % (auto) 0.5 %; Hematocrit (blood only) 35.4 % (37-47); Hemoglobin 11.8 g/dL (12.0-16.0); Immature Granulocytes # (auto) 0.02 K/uL (0.00-0.02); Immature Granulocytes % (auto) 0.3 %; Lymphocytes # (auto) 1.16 K/uL (1.2-3.4); Lymphocytes % (auto) 15.9 %; Mean Corpuscular Hemoglobin 32.2 pg (25-34); Mean Corpuscular Hgb Conc 33.3 g/dL (32-36); Mean Corpuscular Volume 96.5 fL (80-100); Mean Platelet Volume 10.3 fL (7.4-10.4); Monocytes # (auto) 0.81 K/uL (0.11-0.59); Monocytes % (auto) 11.1 %; Neutrophils # (auto) 5.24 K/uL (1.4-6.5); Neutrophils % (auto) 71.9 %; Platelet Count 305 K/uL (130-400); RDW Coefficient of Variation 14.6 % (11.5-14.5); RDW Standard Deviation 51.6 fL (36.4-46.3); Red Blood Count 3.67 M/uL (4.2-5.4); White Blood Count 7.29 K/uL (4.8-10.8)
--- NOTE | 2021-12-15 19:36 | XRay Report ---
XR knee RT 1 or 2V routine CLINICAL HISTORY: Bilateral knee pain following fall. COMPARISON: Right femur radiographs November 27, 2017. FINDINGS: Alignment of the right knee is anatomic. There is no acute fracture. No evidence for a wayne nt effusion. Superior spurring of the patella is noted. Mild to moderate medial and patellofemoral co mpartment osteoarthritis is present. IMPRESSION: 1. No acute fracture or joint effusion of the right knee. 2. Mild to moderate medial and patellofemoral compartment osteoarthritis. ACT 112: Negative or not required by law. Electronically signed by: Clarence Mcadams M.D. 12/15/2021 7:34 PM
--- NOTE | 2021-12-15 19:37 | XRay Report ---
XR knee LT 1 or 2V routine CLINICAL HISTORY: Left knee pain following fall. COMPARISON: None FINDINGS: Alignment of left knee is anatomic. There is no acute fracture. No joint effusion. Superio r patellar spurring is chronic. There is mild to moderate medial and patellofemoral compartment osteo arthritis. IMPRESSION: 1. No acute fracture or joint effusion of the left knee. 2. Mild to moderate medial and patellofemoral compartment osteoarthritis. ACT 112: Negative or not required by law. Electronically signed by: Clarence Mcadams M.D. 12/15/2021 7:35 PM
[2021-12-15 19:38] LABS: INR 1.2 (0.9-1.1); Partial Thromboplastin Time 28.5 Seconds (21.0-31.0); Prothrombin Time 12.5 Seconds (9.0-12.0)
--- NOTE | 2021-12-15 19:39 | XRay Report ---
XR chest 1V portable CLINICAL HISTORY: weakness COMPARISON STUDY: Chest radiograph July 08, 2021. Chest CT May 29, 2021. FINDINGS: Lung volumes are normal. Lungs are clear. There is no pneumothorax or pleural effusion. Mod erate cardiomegaly is unchanged. Mediastinal contours are normal. There is no evidence for pulmonary edema. Old right seventh rib fracture is incidentally noted. IMPRESSION: No acute cardiopulmonary findings. Stable cardiomegaly. ACT 112: Negative or not required by law. Electronically signed by: Clarence Mcadams M.D. 12/15/2021 7:38 PM
[2021-12-15 19:52] LABS: Albumin Globulin Ratio 1.1 (0.9-2); Albumin Level 3.8 gm/dl (3.4-5.0); BUN Creatinine Ratio 31.6 (10-20); Bilirubin,Total 0.5 mg/dl (0.2-1.0); Calcium 9.2 mg/dl (8.5-10.1); Creatinine Clr Calc Pharmacy 36.6 ml/min; Est GFR (African American) 38.7 ml/min; Est GFR (Non-African American) 33.4 ml/min; Globulin 3.4 gm/dl (2.5-4.0); Potassium 3.9 mmol/L (3.5-5.1); Total Protein 7.2 gm/dl (6.0-8.3); Uric Acid 12.1 mg/dl (2.6-7.2)
[2021-12-15 19:55] LABS: Troponin I High Sensitivity 8.9 pg/ml (0-14)
[2021-12-15 20:52] LABS: Appearance Urine Clear (Clear); Bacteria Urine Automated Negative (Negative); Bilirubin Urine Negative (Negative); Blood Urine Negative (Negative); Color Urine Yellow; Glucose Urine UA Negative (Negative); Ketones Urine Negative (Negative); Leukocyte Esterase Urine 2+ (Negative); Nitrite Urine Negative (Negative); Protein Urine Negative (Negative); RBC Urine Automated 0-4 /hpf (0-4); Specific Gravity Urine 1.014 (1.000-1.030); Urobilinogen Urine Negative (Negative); pH Urine 6.5 (4.5-7.5)
--- NOTE | 2021-12-15 22:59 | History & Physical Report ---
Date of Service December 15, 2021 Assessment & Plan (1) Weakness: Plan: Etiology uncertain. Suspect large degree of chronic weakness, deconditioning playing a role. No obvious reason for acute decline. She is afebrile, HD stable, no leukocytosis. Workup thus far does not suggest infection. She does have elevation of QC=140, ESR=56 and CRP=1.57. ?Rheumatological condition such as Polymyalgia rheumatica - patient with age >50, aching pain in thighs and hips as well as elevation of ESR and CRP. Pain has only been ongoing for several days, however. Patient is already on Dexamethasone daily -PT/OT evaluation -Fall precautions (2) Acute bilateral knee pain: Plan: Etiology uncertain at this time. No obvious deformity, exam with generalized tenderness. ?arthritis flare ?PMR/Rheumatological condition? -Tylenol PRN -Oxycodone PRN -PT/OT (3) Abnormal gait: Plan: Due to leg weakness and knee pain -PT/OT evaluation (4) Chronic systolic CHF (congestive heart failure): Plan: Patient reports feeling of retaining fluid in abdomen. No hypoxia. BNP is mildly elevated. She does appear to be clinically compensated -Lasix 20mg IV x 1 dose -Continue PO Lasix 40mg daily -Continue Carvedilol, Digoxin, Lisinopril, Spironolactone (5) Afib: Plan: Rate controlled. Patient anticoagulated on Rivaroxaban. Digoxin level WNL -Continue Xarelto -Continue Diltiazem -Continue Digoxin -Continue Carvedilol (6) Hypothyroidism: Plan: TSH WNL -Continue Synthroid 112 mcg po daily (7) Anxiety: Plan: Patient does appear to be anxious -Continue Alprazolam 0.5mg po TID (8) Headache: Plan: Chronic. Patient follows with Neurology. Last seen 11/05/21 -Continue Cymbalta 30mg po daily Plan: Clindamycin and Dexamethasone from outside facility list. History of Present Illness Chief Complaint: we Primary Care Provider: Qasim Rangel MD Eva Ford is a 76yo female with history of AF, CHF, Anxiety, Chronic fatigue, CKD and hypothyroidism. She presents today with complaint of bilateral knee pain, inability to walk due to pain. Symptoms have been ongoing for the last 3 days. She describes the pain in the knees as throbbing and severe. Her son assists her at home - has been needing to help her more. She has become increasingly unsteady on her feet. He reports she has been more fatigued as well as some increased confusion such as repeating herself as well as forgetfulness. He also reports her oral intake has declined over the last several days. No trauma or fall. No change in activity. Patient is very sedentary at home and spends a large amount of time in bed. She denies fever but has been having some chills. Denies headache/neck pain/chest pain/palpitations/cough/SOB/abdominal pain/nausea/vomiting or diarrhea. She is urinating and having bowel movements without difficulty. She feels she may be retaining some fluid in her abdomen and feels pain and weakness in her thighs as well. Allergies Allergy/AdvReac Type Severity Reaction Status Date / Time gabapentin Allergy Unknown MULTIPLE Verified 12/15/21 18:51 REACTIONS "COULD GO ON AND ON" - SEE NOTES codeine AdvReac Intermediate SEVERE GI Verified 12/15/21 18:51 SYMPTOMS Home Medications Medication Instructions Recorded Confirmed Type furosemide 40 mg tablet (Lasix) 40 mg PO QAM 11/30/18 12/15/21 History levothyroxine 112 mcg tablet 112 mcg PO QAM 11/30/18 12/15/21 History (Synthroid) digoxin 125 mcg (0.125 mg) tablet 125 mcg PO PM 07/07/19 12/15/21 History (Lanoxin) diltiazem HCl 180 mg 180 mg PO QAM 12/11/19 12/15/21 History capsule,extended release 24 hr (Cartia XT) lisinopril 40 mg tablet (Zestril) 40 mg PO QAM 12/11/19 12/15/21 History carvedilol 25 mg tablet (Coreg) 25 mg PO BID 04/22/20 12/15/21 History acetaminophen 500 mg tablet 1,000 mg PO Q6 PRN 04/30/21 12/15/21 History (Tylenol Extra Strength) rivaroxaban 20 mg tablet (Xarelto) 20 mg PO PM 06/03/21 12/15/21 History benzonatate 100 mg capsule 100 mg PO TID PRN 06/20/21 12/15/21 History clindamycin phosphate 1 % topical 1 applic TOPICAL HS 06/20/21 12/15/21 History solution zolpidem 12.5 mg tablet,extended 12.5 mg PO HS PRN 06/20/21 12/15/21 History release,multiphase diclofenac sodium 1 % topical gel 4 g TOPICAL QID PRN 10/24/21 12/15/21 History clindamycin HCl 150 mg capsule 150 mg PO QID cap 11/05/21 12/15/21 History duloxetine 30 mg capsule,delayed 30 mg PO DAILY #30 cap 11/05/21 12/15/21 Rx release (Cymbalta) oxycodone 5 mg capsule 5 mg PO TID PRN cap 11/05/21 12/15/21 History alprazolam 0.5 mg tablet 0.5 mg PO TID PRN 12/15/21 12/15/21 History benzocaine 20 % mucosal gel 1 ea MUCOUS MEMBRANE DIRECTED 12/15/21 12/15/21 History PRN cyproheptadine 2 mg/5 mL oral syrup 2 mg PO DAILY PRN 12/15/21 12/15/21 History dexamethasone 0.5 mg/5 mL oral 1 mg PO DAILY 12/15/21 12/15/21 History solution docusate sodium 100 mg capsule 200 mg PO DAILY 12/15/21 12/15/21 History (Colace) melatonin 1 mg tablet 1 mg PO HS PRN 12/15/21 12/15/21 History meloxicam 7.5 mg tablet 7.5 mg PO DAILY PRN 12/15/21 12/15/21 History ondansetron 4 mg disintegrating 4 mg PO BID PRN 12/15/21 12/15/21 History tablet spironolactone 25 mg tablet 25 mg PO DAILY 12/15/21 12/15/21 History Past Med/Surg History Medical History (Updated 12/16/21 @ 02:17 by Nano Herman DO) Ambulatory dysfunction LIMITED MOBILITY D/T CHRONIC WEAKNESS PER PT & SON Anxiety Atrial fibrillation DX 8 YR AGO, HX CARDIOVERSION Atrial fibrillation with RVR no pacer> follows with Dr. March > stable CHF (congestive heart failure) Chronic fatigue syndrome Chronic pain CKD (chronic kidney disease), stage III Gallbladder problem POSSIBLE PER PT...NO MEDICAL DX OF, NO EVAL FOR GI problem "INFLAMMATION OF DIGESTIVE TRACT" - PT DENIES MEDICAL DX OF DIGESTIVE PROBLEM SUCH IBS, CHRON'S, DIVERTICULTIS,COLITIS, ETC... Headache History of anemia History of recurrent UTIs REPORTS HX BLADDER INFECTIONS - NONE CURRENT Hypothyroidism Lumbar facet joint syndrome Multinodular goiter ? HX OF Neck stiffness PT REPORTS ONGOING PROBLEM, POSTURE RELATED SOB (shortness of breath) on exertion TIA (transient ischemic attack) pt reports was stroke like symptoms but was related to being sick, not actual TIA Weakness CHRONIC Surgical History H/O breast augmentation History of colonoscopy History of laparoscopy "LASER LAPARAOSCOPIES" S/P tooth extraction HX Family History Mother , age 83 with lung cancer and COPD Lung cancer COPD (chronic obstructive pulmonary disease) Family history of diabetes mellitus Father , in 70s of bladder cancer and COPD Bladder cancer COPD (chronic obstructive pulmonary disease) Family history of diabetes mellitus Brother Family history of diabetes mellitus Other Allergies Asthma Cancer Family history of bleeding disorder Family history of colon cancer in father Hearing loss Heart disease Hypertension Denies family history of Stroke Social History Smoking Status: Never smoker Second Hand Exposure: No; Hx Alcohol Use: No Hx Substance Use: No Preferred Language: Japanese Communication Ability: Effective Visual Impairment: No Limitations Library Clerical Assistant Required: No Beliefs That Will Affect Care: None marital status: Current Living Situation: Family Current Living Situation Comment: lives with son current occupational status: retired and disabled How many Children do You have: 2 Other Information That Helps Us Care for You: No other: Disabled in her 50s. 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 Feels Safe at Home: Yes Safety Concerns: Feels Safe At This Time Assistive Devices: Glasses, Hearing Aid - Bilateral and Wheelchair Review of Systems Review of Systems: All systems reviewed & are unremarkable except as noted in HPI & below Physical Exam Physical Exam: General: patient appears chronically ill, resting comfortably, NAD, non-toxic in appearance, AA&O x 4 Skin: chronic skin discoloration with areas of excoriation, no apparent infection HEENT: NC/AT, PERRL, EOMI, anicteric sclera, conjunctiva without injection, external ear normal to inspection and nontender, nares patent, moist mucus membranes, dentition intact, no oropharyngeal lesions, neck supple, trachea midline, no LAD, no thyromegaly, no JVD Heart: +S1/S2, regular, no m/r/g Lungs: equal air entry bilaterally, no rales/rhonchi/wheezes Abd: +BS, soft, NT/ND, no masses/organomegaly/ascites Ext: warm, 2+ pulses in UE/LE bilaterally, no clubbing/cyanosis or edema Knees with no obvious deformity, cool to touch with no edema, tenderness to palpation of patella as well as joint spaces, no anterior/posterior laxity on limited exam Neuro: nonfocal, patient AA&O x 4, speech intact, no facial droop, moving all extremities on command with equal strength 5/5 Results & Data Results & Data ([facility]) Vital Signs (Past 12 Hours) Vital Signs Temp Pulse Pulse Resp BP BP Pulse Ox 12/15/21 20:00 36.8 C 73 20 105/56 L 12/15/21 18:45 67 16 118/69 100 12/15/21 18:27 63 16 97 12/15/21 18:12 36.7 C 74 18 100/61 98 Laboratory Results Laboratory Results WBC 7.29 K/uL (4.8-10.8) 12/15/21 18:18 RBC 3.67 M/uL (4.2-5.4) L 12/15/21 18:18 Hgb 11.8 g/dL (12.0-16.0) L 12/15/21 18:18 Hct 35.4 % (37-47) L 12/15/21 18:18 MCV 96.5 fL (80-100) 12/15/21 18:18 MCH 32.2 pg (25-34) 12/15/21 18:18 MCHC 33.3 g/dL (32-36) 12/15/21 18:18 RDW Std Deviation 51.6 fL (36.4-46.3) H 12/15/21 18:18 RDW Coeff of [place] 14.6 % (11.5-14.5) H 12/15/21 18:18 Plt Count 305 K/uL (130-400) 12/15/21 18:18 MPV 10.3 fL (7.4-10.4) 12/15/21 18:18 Immature Gran % (Auto) 0.3 % 12/15/21 18:18 Neut % (Auto) 71.9 % 12/15/21 18:18 Lymph % (Auto) 15.9 % 12/15/21 18:18 [place] % (Auto) 11.1 % 12/15/21 18:18 Eos % (Auto) 0.5 % 12/15/21 18:18 Baso % (Auto) 0.3 % 12/15/21 18:18 Neut # (Auto) 5.24 K/uL (1.4-6.5) 12/15/21 18:18 Lymph # (Auto) 1.16 K/uL (1.2-3.4) L 12/15/21 18:18 [place] # (Auto) 0.81 K/uL (0.11-0.59) H 12/15/21 18:18 Eos # (Auto) 0.04 K/uL (0-0.5) 12/15/21 18:18 Baso # (Auto) 0.02 K/uL (0-0.2) 12/15/21 18:18 Immature Gran # (Auto) 0.02 K/uL (0.00-0.02) 12/15/21 18:18 ESR 56 mm/hr (0-30) H 12/15/21 18:18 PT 12.5 Seconds (9.0-12.0) H 12/15/21 18:18 INR 1.2 (0.9-1.1) H 12/15/21 18:18 APTT 28.5 Seconds (21.0-31.0) 12/15/21 18:18 PTT Ratio 1.0 12/15/21 18:18 Sodium 137 mmol/L (136-145) 12/15/21 18:18 Potassium 3.9 mmol/L (3.5-5.1) 12/15/21 18:18 Chloride 98 mmol/L (98-107) 12/15/21 18:18 Carbon Dioxide 28 mmol/L (21-32) 12/15/21 18:18 Anion Gap 11 (3-11) 12/15/21 18:18 BUN 48 mg/dl (6-23) H 12/15/21 18:18 Creatinine 1.52 mg/dl (0.6-1.2) H 12/15/21 18:18 Est Cr Clr Drug Dosing 36.6 ml/min 12/15/21 18:18 Est GFR ( Amer) 38.7 ml/min 12/15/21 18:18 Est GFR (Non-Af Amer) 33.4 ml/min 12/15/21 18:18 BUN/Creatinine Ratio 31.6 (10-20) H 12/15/21 18:18 Glucose 97 mg/dl (70-99(Fasting)) 12/15/21 18:18 Uric Acid 12.1 mg/dl (2.6-7.2) H 12/15/21 18:18 Calcium 9.2 mg/dl (8.5-10.1) 12/15/21 18:18 Phosphorus 3.8 mg/dl (2.5-4.9) 12/15/21 18:18 Magnesium 2.3 mg/dl (1.7-2.4) 12/15/21 18:18 Total Bilirubin 0.5 mg/dl (0.2-1.0) 12/15/21 18:18 AST 27 U/L (13-39) 12/15/21 18:18 ALT 26 U/L (7-52) 12/15/21 18:18 Alkaline Phosphatase 66 U/L (34-104) 12/15/21 18:18 Total Creatine Kinase 246 U/L (26-192) H 12/15/21 18:18 Troponin I High Sens 8.9 pg/ml (0-14) 12/15/21 18:18 C-Reactive Protein 1.57 mg/dl (0-0.5) H 12/15/21 18:18 B-Natriuretic Peptide 259 pg/ml (0-100) H 12/15/21 20:23 Total Protein 7.2 gm/dl (6.0-8.3) 12/15/21 18:18 Albumin 3.8 gm/dl (3.4-5.0) 12/15/21 18:18 Globulin 3.4 gm/dl (2.5-4.0) 12/15/21 18:18 Albumin/Globulin Ratio 1.1 (0.9-2) 12/15/21 18:18 TSH 0.551 uIu/ml (0.300-4.500) 12/15/21 18:18 Urine Color Yellow 12/15/21 20: Urine Appearance Clear (Clear) 12/15/21 20: Urine pH 6.5 (4.5-7.5) 12/15/21 20: Ur Specific [place] 1.014 (1.000-1.030) 12/15/21 20: Urine Protein Negative (Negative) 12/15/21 20: Urine Glucose (UA) Negative (Negative) 12/15/21 20: Urine Ketones Negative (Negative) 12/15/21 20: Urine Blood Negative (Negative) 12/15/21 20: Urine Nitrite Negative (Negative) 12/15/21: Urine Bilirubin Negative (Negative) 12/15/21 20: Urine Urobilinogen Negative (Negative) 12/15/21 20: Ur Leukocyte Esterase 2+ (Negative) H 12/15/21 20: Urine WBC (Auto) 10-30 /hpf (0-5) H 12/15/21 20: Urine RBC (Auto) 0-4 /hpf (0-4) 12/15/21 20: U Hyaline Cast (Auto) 1-5 /lpf (0-5) 12/15/21 20: U Epithel Cells (Auto) 10-20 /lpf (0-5) H 12/15/21 20: Urine Bacteria (Auto) Negative (Negative) 12/15/21 20: Digoxin 1.2 ng/ml (0.8-2.0) 12/15/21 22:41 Salicylates < 3.0 mg/dl (3.0-30) L 12/15/21 22:41 Acetaminophen 3 ug/ml (10-30) L 12/15/21 22:41 SARS-CoV-2, RNA, NAAT NEGATIVE (NEGATIVE) 12/15/21 18:43 Impressions Chest X-Ray 12/15/21 18:27 XR chest 1V portable CLINICAL HISTORY: weakness COMPARISON STUDY: Chest radiograph July 08, 2021. Chest CT May 29, 2021. FINDINGS: Lung volumes are normal. Lungs are clear. There is no pneumothorax or pleural effusion. Moderate cardiomegaly is unchanged. Mediastinal contours are normal. There is no evidence for pulmonary edema. Old right seventh rib fracture is incidentally noted. IMPRESSION: No acute cardiopulmonary findings. Stable cardiomegaly. ACT 112: Negative or not required by law. Electronically signed by: Clarence Mcadams M.D. 12/15/2021 7:38 PM Knee X-Ray 12/15/21 18:34 XR knee LT 1 or 2V routine CLINICAL HISTORY: Left knee pain following fall. COMPARISON: None FINDINGS: Alignment of left knee is anatomic. There is no acute fracture. No joint effusion. Superior patellar spurring is chronic. There is mild to moderate medial and patellofemoral compartment osteoarthritis. IMPRESSION: 1. No acute fracture or joint effusion of the left knee. 2. Mild to moderate medial and patellofemoral compartment osteoarthritis. ACT 112: Negative or not required by law. Electronically signed by: Clarence Mcadams M.D. 12/15/2021 7:35 PM ECG Additional Comments: EKG with AF at 70, no acute ischemic changes Code Status & VTE Plan VTE Prophylaxis Plan VTE Prophylaxis will be ordered: Yes PG Care Time/CCT Total # of Minutes Spent Total Time Spent with Patient: Total time spent is greater than 50% in coordination of care (as documented) at patient's floor/unit and/or counseling patient: Coding Level of Care Code 27170 Initial Inpt Care Lvl 3 Diagnoses Weakness R53.1 Acute bilateral knee pain M25.561; M25.562 Abnormal gait R26.9 Chronic systolic CHF (congestive heart failure) I50.22 Afib I48.91 Atrial fibrillation type: unspecified Hypothyroidism E03.9 Anxiety F41.9 Headache R51.9 (1) Afib Atrial fibrillation type: unspecified Qualified Code(s): I48.91 - Unspecified atrial fibrillation
[2021-12-15 23:09] LABS: C Reactive Protein 1.57 mg/dl (0-0.5)
[2021-12-15 23:31] LABS: Acetaminophen 3 ug/ml (10-30); Digoxin 1.2 ng/ml (0.8-2.0); Salicylate < 3.0 mg/dl (3.0-30)
[2021-12-16] MEDS ORDERED: ONDANSETRON INJ 2 MG/ML 2 ML VIAL IV PRN (00:49)
[2021-12-16] MEDS ORDERED: DICLOFENAC SOD 1% GEL 100 GM TUBE EXT PRN (00:49)
[2021-12-16] MEDS ORDERED: MELOXICAM 7.5 MG TAB PO PRN (00:49)
[2021-12-16] MEDS ORDERED: MELATONIN 3 MG TAB PO PRN (00:49)
[2021-12-16] MEDS ORDERED: ACETAMINOPHEN 500 MG TAB PO PRN (00:49)
[2021-12-16] MEDS ORDERED: oxyCODONE HCL IR 5 MG TAB (IMMEDIATE RELEASE) PO PRN (00:49)
[2021-12-16] MEDS ORDERED: ACETAMINOPHEN 325 MG TAB PO PRN (00:49)
[2021-12-16] MEDS ORDERED: FUROSEMIDE INJ 20 MG/2 ML VIAL IV ONE (00:49)
[2021-12-16 01:11] LABS: Magnesium 2.3 mg/dl (1.7-2.4); Phosphorus 3.8 mg/dl (2.5-4.9)
[2021-12-16] MEDS: LEVOTHYROXINE SODIUM 112 MCG TABLET PO SCH (05:22)
--- NOTE | 2021-12-16 07:08 | Ultrasound Report ---
US venous doppler LE BI CLINICAL HISTORY: Bilateral knee and leg pain COMPARISON: None available at the time of this dictation. TECHNIQUE: Bilateral lower extremity real-time compression venous ultrasound with Color Doppler imagi ng. Utilizing real-time ultrasonic imaging multiple real time high-resolution ultrasonic images with comp ression and noncompression maneuvers of the deep venous system in addition to color doppler imaging w ere performed from the common femoral vein through the proximal calf veins. FINDINGS: Currently there is normal compressibility of the deep venous system from the common femoral vein thro ugh the proximal calf veins. No current evidence of acute thrombosis is identified. There is evidence for popliteal cyst on the left measuring 2.6 x 2.0 x 0.9 cm. Impression: No evidence of deep venous thrombus. ACT 112: Negative or not required by law. Electronically signed by: Ran Kahn M.D. 12/16/2021 7:06 AM
[2021-12-16 08:09] LABS: Basophils # (auto) 0.03 K/uL (0-0.2); Basophils % (auto) 0.5 %; Eosinophils # (auto) 0.08 K/uL (0-0.5); Eosinophils % (auto) 1.4 %; Hematocrit (blood only) 36.2 % (37-47); Hemoglobin 12.1 g/dL (12.0-16.0); Immature Granulocytes # (auto) 0.01 K/uL (0.00-0.02); Immature Granulocytes % (auto) 0.2 %; Lymphocytes # (auto) 1.76 K/uL (1.2-3.4); Lymphocytes % (auto) 30.6 %; Mean Corpuscular Hemoglobin 32.2 pg (25-34); Mean Corpuscular Hgb Conc 33.4 g/dL (32-36); Mean Corpuscular Volume 96.3 fL (80-100); Monocytes # (auto) 0.69 K/uL (0.11-0.59); Neutrophils # (auto) 3.18 K/uL (1.4-6.5); Neutrophils % (auto) 55.3 %; Platelet Count 278 K/uL (130-400); Red Blood Count 3.76 M/uL (4.2-5.4); White Blood Count 5.75 K/uL (4.8-10.8)
[2021-12-16] MEDS: oxyCODONE HCL IR 5 MG TAB (IMMEDIATE RELEASE) PO PRN ×2 (08:11→17:35)
[2021-12-16 08:25] LABS: BUN Creatinine Ratio 31.4 (10-20); Calcium 9.2 mg/dl (8.5-10.1); Creatinine Clr Calc Pharmacy 50.9 ml/min; Est GFR (African American) 52.6 ml/min; Est GFR (Non-African American) 45.4 ml/min; Potassium 3.5 mmol/L (3.5-5.1)
[2021-12-16] MEDS ORDERED: FUROSEMIDE 40 MG TAB PO SCH (09:00)
[2021-12-16] MEDS: DOCUSATE SODIUM 100 MG CAP PO SCH (09:22)
[2021-12-16] MEDS: DULoxetine HCL 30 MG CAP PO SCH (09:24)
[2021-12-16] MEDS: CLINDAMYCIN HCL 150 MG CAP PO SCH ×4 (09:24→20:22)
[2021-12-16] MEDS: carvediloL 25 MG TAB PO SCH ×2 (09:24→20:21)
[2021-12-16] MEDS: SPIRONOLACTONE 25 MG TAB PO SCH (09:25)
[2021-12-16] MEDS: dexAMETHasone 1 MG TAB PO SCH (09:25)
[2021-12-16] MEDS: lisinopril 40 MG TAB PO SCH (09:26)
[2021-12-16] MEDS: dilTIAZem HCL 180 MG CAPCR PO SCH (09:27)
--- NOTE | 2021-12-16 12:01 | Hospitalist Progress Note ---
Date of Service December 16, 2021 Assessment & Plan (1) Acute bilateral knee pain: Plan: 76yo female with atrial fibrillation, CHF, CKD, and hypothyroidism presents with a three-day history of worsening bilateral knee pain and generalized weakness. Acute bilateral knee pain, abnormal gait, weakness Etiology uncertain; suspect large degree of chronic weakness, deconditioning playing a role; no obvious reason for acute decline Afebrile, hemodynamically stable, no leukocytosis; workup thus far does not suggest infection No obvious deformity, exam with generalized bilateral knee tenderness XR knee: no acute fracture or joint effusion of the left knee; mild to moderate medial and patellofemoral compartment osteoarthritis CK 246, ESR 56, CRP 1.57 Differential includesOA flare vs PMR vs other rheumatological condition PMR considered less likely given lack of UE involvement, relatively sudden- onset, and lack of improvement on daily dexamethasone Tylenol PRN, oxycodone for breakthrough pain Continue PT/OT, appreciate recommendations for placement, will likely require inpatient rehab Fall precautions SOB Patient with new SOB developed on 12/16; O2 sat 98% on RA Of note, patient was treated about two weeks ago for presumed pneumonia CXR without acute process, no sign of infection, no vascular congestion despite slightly elevated BNP on admission (259) Suspect SOB secondary to anxiety Continue to monitor CHF Patient reports feeling of retaining fluid in abdomen; no hypoxia; BNP mildly elevated; does appear to be clinically compensated Lasix 20mg IV x 1 dose; continue home lasix (40mg PO daily) Continue carvedilol, digoxin, lisinopril, spironolactone Atrial fibrillation Rate controlled, anticoagulated on xarelto,digoxin level wnl Continue xarelto, diltiazem, digoxin, carvedilol Chronic sinusitis Continue home dexamethasone Hypothyroidism TSH wnl, continue home synthroid Anxiety Continue home xanax Headache Chronic; patient follows with neurology (last seen 11/05/21) Continue home cymbalta FEN: heart healthy diet Code status: DNR/DNI DVT ppx: xarelto PT/OT: ordered Case management: consulted Dispo: med/surg (2) Weakness: Admission and Anticipated Discharge Date Admission Date: December 15, 2021 Supervising Physician Co-Signing Physician Notes I personally examined the patient and verified all love points of history and exam, discussed case, and agree with decision making with Dr Szuminski knee pain. overall weakness vitals noted nad heent nc at mmm breathing unlabored no accessory muscles good effort skin no rashes no pallor or icterus weakness/knee pain -DJD + ?malaise from relative adrenal insufficency or deconditioning or other -voltaren gel, PT/OT, cosyntropin stim - although may need endocrine given chronic steroids clouding interpretation Subjective Patient seen and evaluated at bedside this morning. No acute events overnight. This morning, patient feels well overall but complains of persistent knee pain (L>R), though this has improved since admission. Oxycodone adequately controls the pain. Denies CP, SOB, abdominal pain, nausea, vomiting, diarrhea, or other symptoms. Physical Exam Physical Exam: Constitutional: well-appearing, no acute distress CV: irregularly irregular rhythm, no murmur appreciated, extremities well- perfused Resp: CTABL, no wheezes/rales/rhonchi appreciated, no increased work of breathing MSK: bilateral knees with moderate generalized tenderness to palpation, no effusion appreciated Skin: chronic dark purplish skin discoloration noted on face Neuro: alert, oriented, no focal neurologic deficit appreciated Results & Data Results & Data ([facility]) Vital Signs (Past 12 Hours) Vital Signs Temp Pulse Pulse Pulse Resp BP BP 12/16/21 09:28 107/67 12/16/21 07:39 36.5 C 72 16 12/16/21 00:58 36.4 C L 70 18 127/85 12/16/21 00:30 77 18 122/65 12/16/21 00:05 36.8 C 80 20 112/65 BP Pulse Ox 12/16/21 09:28 12/16/21 07:39 96/63 L 98 12/16/21 00:58 99 12/16/21 00:30 98 12/16/21 00:05 97 Resident Activity Tracking Resident Involvement: Resident Care Provided Care Provided: Adult Hospital Medicine
[2021-12-16] MEDS: ALPRAZolam 0.5 MG TABLET PO PRN ×2 (12:13→20:27)
--- NOTE | 2021-12-16 13:29 | XRay Report ---
XR chest 1V portable CLINICAL HISTORY: SOB TECHNIQUE: Single frontal radiograph of the chest was obtained. Comparison: Comparison is made to chest one view 12/15/2021 FINDINGS: No lines and tubes are seen. Cardiomegaly is noted. Lungs are underinflated but clear. No evidence of pleural effusion or pneumothorax. IMPRESSION: No acute chest disease. ACT 112: Negative or not required by law. Electronically signed by: Raffi Kauffman M.D. 12/16/2021 1:28 PM
[2021-12-16] MEDS: ACETAMINOPHEN 325 MG TAB PO SCH ×3 (14:12→20:20)
--- NOTE | 2021-12-16 15:21 | Electrocardiogram Report ---
Test Reason : Blood Pressure : / mmHG Vent. Rate : 070 BPM Atrial Rate : 075 BPM P-R Int : 000 ms QRS Dur : 102 ms QT Int : 394 ms P-R-T Axes : 000 -38 256 degrees QTc Int : 425 ms Atrial fibrillation Left axis deviation Low voltage QRS Possible Lateral infarct , age undetermined Inferior infarct (cited on or before 08-JUL-2021) Abnormal ECG When compared with ECG of 08-JUL-2021 21:02, Nonspecific T wave abnormality now evident in Lateral leads Confirmed by Qasim Casillas ([id number]) on 12/16/2021 3:21:03 PM Referred By: REFERRED SELF Confirmed By:Qasim Casillas
[2021-12-16] MEDS ORDERED: DICLOFENAC SOD 1% GEL 100 GM TUBE EXT SCH (17:00)
[2021-12-16 17:18] LABS: Lyme Ab IgG w/WB Rflx Negative (Negative); Lyme Ab IgM w/WB Rflx Negative (Negative)
[2021-12-16] MEDS: DIGOXIN 0.125 MG TAB PO SCH (17:33)
[2021-12-16] MEDS: RIVAROXABAN 15 MG TAB PO SCH (17:33)
[2021-12-16] MEDS: DICLOFENAC SOD 1% GEL 100 GM TUBE EXT SCH ×2 (17:33→20:20)
[2021-12-16] MEDS: ONDANSETRON 4 MG OD TAB PO PRN (17:36)
--- NOTE | 2021-12-16 19:23 | Billing Data ---
Date of Service December 16, 2021 Coding Level of Care Code 09105 Subseq Hosp Care Lvl 3
[2021-12-16] MEDS ORDERED: RIVAROXABAN 20 MG TAB PO SCH (21:00)
[2021-12-17] MEDS: ACETAMINOPHEN 325 MG TAB PO SCH ×6 (02:01→20:12)
[2021-12-17] MEDS: LEVOTHYROXINE SODIUM 112 MCG TABLET PO SCH (05:34)
--- NOTE | 2021-12-17 06:57 | Hospitalist Progress Note ---
Date of Service December 17, 2021 Assessment & Plan (1) Acute bilateral knee pain: Plan: 76yo female with atrial fibrillation, CHF, CKD, and hypothyroidism presents with a three-day history of worsening bilateral knee pain and generalized weakness. Acute bilateral knee pain, abnormal gait, weakness Etiology uncertain; suspect large degree of chronic weakness, deconditioning playing a role; no obvious reason for acute decline Afebrile, hemodynamically stable, no leukocytosis; workup thus far does not suggest infection No obvious deformity, exam with generalized bilateral knee tenderness XR knee: no acute fracture or joint effusion of the left knee; mild to moderate medial and patellofemoral compartment osteoarthritis CK 246, ESR 56, CRP 1.57 Differential includesOA flare vs PMR vs other rheumatological condition PMR considered less likely given lack of UE involvement, relatively sudden- onset, and lack of improvement on daily dexamethasone Tylenol PRN, oxycodone for breakthrough pain Continue PT/OT, appreciate recommendations for placement, will likely require inpatient rehab Fall precautions POPPY on CKD 12/17: increase in creatinine from 1.18 to 1.85, suspected secondary to poor PO intake on 12/16 in the setting of multiple nephrotoxic meds Hold meloxicam, lisinopril, furosemide, and spironolactone Will check digoxin level LR 500mL bolus ordered, PO intake encouraged 12/17: repeat BMP scheduled for 15:00, will consider further IVF depending on result Given that patient's eCrCl is likely inaccurate due to new POPPY, will hold xarelto Will restart xarelto if patient's creatinine falls below 1.6 by 12/18 afternoon If creatinine doesn't fall below 1.6 by 12/18 afternoon, will bridge anticoagulation until kidney function improves Trend daily BMP SOB: resolved Patient with new SOB developed on 12/16; O2 sat 98% on RA Of note, patient was treated about two weeks ago for presumed pneumonia CXR without acute process, no sign of infection, no vascular congestion despite slightly elevated BNP on admission (259) Suspect SOB secondary to anxiety Continue to monitor CHF Patient reports feeling of retaining fluid in abdomen; no hypoxia; BNP mildly elevated; does appear to be clinically compensated Lasix 20mg IV x 1 dose; continue home lasix (40mg PO daily) Continue carvedilol, digoxin Holding lisinopril, spironolactone as above Atrial fibrillation Rate controlled, anticoagulated on xarelto,digoxin level wnl Continue xarelto, diltiazem, digoxin, carvedilol Chronic sinusitis Continue home dexamethasone Hypothyroidism TSH wnl, continue home synthroid Anxiety Continue home xanax Headache Chronic; patient follows with neurology (last seen 11/05/21) Continue home cymbalta FEN: heart healthy diet Code status: DNR/DNI DVT ppx: xarelto PT/OT: ordered Case management: consulted Dispo: med/surg (2) Weakness: Admission and Anticipated Discharge Date Admission Date: December 15, 2021 Supervising Physician Co-Signing Physician Notes I personally examined the patient and verified all love points of history and exam, discussed case, and agree with decision making with Dr Menendez Knee pain and weakness improved. Did not want to go to rehab, noting that she does not do all that much at home, and why would she want to get built back up to go back to work. When asking her if she felt like she could get to the bathroom right now, she answers now, whenever discussing other basic activities of daily living she recognizes she would not be able to do that. Once we discussed that the goal of going to rehab would really be to get her back to where she can function basically at home, she can then is much more amenable to going to rehab for us. Looking at the notes from physical therapy she was amenable to going to rehab after they worked with her as well. Once case management was discussing this with her, she then apparently wanted to go back home. vitals noted nad heent nc at mmm breathing unlabored no accessory muscles good effort skin no rashes no pallor or icterus weakness/knee pain -DJD seems to be improving. Malaise has resolved, was unclear cause. Low AM cortisol not surprising given that she is on chronic steroids, could pursue with cosyntropin stim, but given that she is feeling better will refrain from checking this for now -jose gel, PT/OT, really would benefit from rehab, seems to be up and down on whether or not she is going to do this. Elevated creatinine/POPPY on CKDholding many of her home meds, giving fluid, encouraging p.o. intake (which was apparently quite scant yesterday)repeat BMP in a.m. Subjective Patient seen and evaluated at bedside this morning. No acute events overnight. Fluid intake over the past 24hr was only 500mL. Today, patient feels quite a bit better than yesterday, noting that her knee pain has dramatically improved. Denies CP, SOB, abdominal pain, nausea, vomiting, or other symptoms. Feels like her fatigue from yesterday has also improved. No new questions or concerns at this time. Physical Exam Physical Exam: Constitutional: well-appearing, no acute distress, sitting up in bed CV: irregularly irregular rhythm, no murmur appreciated, extremities well- perfused Resp: CTABL, no wheezes/rales/rhonchi appreciated, no increased work of breathing MSK: bilateral knees with mild generalized tenderness to palpation, no effusion appreciated Skin: chronic dark purplish skin discoloration noted on face Neuro: alert, oriented, no focal neurologic deficit appreciated Results & Data Results & Data ([facility]) Vital Signs (Past 12 Hours) Vital Signs Temp Pulse Resp BP Pulse Ox 12/16/21 22:58 36.7 C 73 18 95/64 L 98 Resident Activity Tracking Resident Involvement: Resident Care Provided Care Provided: Adult [facility]
[2021-12-17 07:51] LABS: Basophils # (auto) 0.03 K/uL (0-0.2); Basophils % (auto) 0.5 %; Eosinophils # (auto) 0.08 K/uL (0-0.5); Eosinophils % (auto) 1.5 %; Hematocrit (blood only) 37.4 % (37-47); Hemoglobin 12.1 g/dL (12.0-16.0); Immature Granulocytes # (auto) 0.02 K/uL (0.00-0.02); Immature Granulocytes % (auto) 0.4 %; Lymphocytes # (auto) 2.07 K/uL (1.2-3.4); Lymphocytes % (auto) 37.6 %; Mean Corpuscular Hemoglobin 31.6 pg (25-34); Mean Corpuscular Hgb Conc 32.4 g/dL (32-36); Mean Corpuscular Volume 97.7 fL (80-100); Mean Platelet Volume 10.1 fL (7.4-10.4); Monocytes # (auto) 0.83 K/uL (0.11-0.59); Monocytes % (auto) 15.1 %; Neutrophils # (auto) 2.48 K/uL (1.4-6.5); Neutrophils % (auto) 44.9 %; Platelet Count 295 K/uL (130-400); RDW Coefficient of Variation 15.1 % (11.5-14.5); RDW Standard Deviation 53.6 fL (36.4-46.3); Red Blood Count 3.83 M/uL (4.2-5.4); White Blood Count 5.51 K/uL (4.8-10.8)
[2021-12-17] MEDS: oxyCODONE HCL IR 5 MG TAB (IMMEDIATE RELEASE) PO PRN ×2 (07:54→14:09)
[2021-12-17] MEDS: DICLOFENAC SOD 1% GEL 100 GM TUBE EXT SCH ×4 (08:00→20:12)
[2021-12-17 08:19] LABS: BUN Creatinine Ratio 23.2 (10-20); Calcium 9.2 mg/dl (8.5-10.1); Creatinine Clr Calc Pharmacy 32.5 ml/min; Est GFR (African American) 30.6 ml/min; Est GFR (Non-African American) 26.4 ml/min; Potassium 3.6 mmol/L (3.5-5.1)
[2021-12-17] MEDS ORDERED: LACTATED RINGER'S 500 ML IV ONE (08:30)
[2021-12-17] MEDS: carvediloL 25 MG TAB PO SCH ×2 (09:16→20:13)
[2021-12-17] MEDS: CLINDAMYCIN HCL 150 MG CAP PO SCH ×4 (09:16→20:13)
[2021-12-17] MEDS: dilTIAZem HCL 180 MG CAPCR PO SCH (09:17)
[2021-12-17] MEDS: DULoxetine HCL 30 MG CAP PO SCH (09:17)
[2021-12-17] MEDS: dexAMETHasone 1 MG TAB PO SCH (09:18)
[2021-12-17] MEDS: DOCUSATE SODIUM 100 MG CAP PO SCH (09:18)
[2021-12-17 15:20] LABS: BUN Creatinine Ratio 24.4 (10-20); Calcium 9.7 mg/dl (8.5-10.1); Creatinine Clr Calc Pharmacy 33.4 ml/min; Est GFR (African American) 31.6 ml/min; Est GFR (Non-African American) 27.2 ml/min; Potassium 4.2 mmol/L (3.5-5.1)
[2021-12-17] MEDS: DIGOXIN 0.125 MG TAB PO SCH (16:36)
--- NOTE | 2021-12-17 19:09 | Billing Data ---
Date of Service December 17, 2021 Coding Level of Care Code 99555 Subseq Hosp Care Lvl 3
[2021-12-17] MEDS: ONDANSETRON 4 MG OD TAB PO PRN (20:17)
[2021-12-17] MEDS: ALPRAZolam 0.5 MG TABLET PO PRN (21:07)
[2021-12-18] MEDS: ACETAMINOPHEN 325 MG TAB PO SCH ×5 (04:28→16:22)
[2021-12-18] MEDS: LEVOTHYROXINE SODIUM 112 MCG TABLET PO SCH (05:08)
[2021-12-18] MEDS: oxyCODONE HCL IR 5 MG TAB (IMMEDIATE RELEASE) PO PRN ×2 (05:10→12:52)
--- NOTE | 2021-12-18 07:41 | Hospitalist Progress Note ---
Date of Service December 18, 2021 Assessment & Plan (1) Acute bilateral knee pain: Plan: 76yo female with atrial fibrillation, CHF, CKD, and hypothyroidism presents with a three-day history of worsening bilateral knee pain and generalized weakness. Acute bilateral knee pain, abnormal gait, weakness Etiology uncertain; suspect large degree of chronic weakness, deconditioning playing a role; no obvious reason for acute decline Afebrile, hemodynamically stable, no leukocytosis; workup thus far does not suggest infection No obvious deformity, exam with generalized bilateral knee tenderness XR knee: no acute fracture or joint effusion of the left knee; mild to moderate medial and patellofemoral compartment osteoarthritis CK 246, ESR 56, CRP 1.57 Differential includesOA flare vs PMR vs other rheumatological condition PMR considered less likely given lack of UE involvement, relatively sudden- onset, and lack of improvement on daily dexamethasone Tylenol PRN, oxycodone for breakthrough pain Continue PT/OT, appreciate recommendations for placement, will likely require inpatient rehab Fall precautions POPPY on CKD 12/17: increase in creatinine from 1.18 to 1.85, suspected secondary to poor PO intake on 12/16 in the setting of multiple nephrotoxic meds Hold meloxicam, lisinopril, furosemide, and spironolactone Will check digoxin level LR 500mL bolus ordered, PO intake encouraged, xarelto held 12/18: creatinine improved to 1.44 (near baseline); restarted patient's xarelto, lisinopril, and spironolactone; continue to hold lasix and mobic Trend daily BMP SOB: resolved Patient with new SOB developed on 12/16; O2 sat 98% on RA Of note, patient was treated about two weeks ago for presumed pneumonia CXR without acute process, no sign of infection, no vascular congestion despite slightly elevated BNP on admission (259) Suspect SOB secondary to anxiety Continue to monitor CHF Patient reports feeling of retaining fluid in abdomen; no hypoxia; BNP mildly elevated; does appear to be clinically compensated Lasix 20mg IV x 1 dose; continue to hold home lasix (40mg PO daily) Continue carvedilol, digoxin Spironolactone, lisinopril restarted 12/18 Atrial fibrillation Rate controlled, anticoagulated on xarelto,digoxin level wnl Continue xarelto, diltiazem, digoxin, carvedilol Chronic sinusitis Continue home dexamethasone Hypothyroidism TSH wnl, continue home synthroid Anxiety Continue home xanax Headache Chronic; patient follows with neurology (last seen 11/05/21) Continue home cymbalta FEN: heart healthy diet Code status: DNR/DNI DVT ppx: xarelto PT/OT: ordered Case management: consulted Dispo: med/surg (2) Weakness: Admission and Anticipated Discharge Date Admission Date: December 15, 2021 Subjective Patient seen and evaluated at bedside this morning. Patient reports waking up in the middle of the night to find her hospital room "decorated like I was in [place]" and says "I have photos to prove it" - when she shows me the photos she took with her phone, they are just photos of her hospital room and the hallway without notable difference. This morning, patient says her room looks like normal again. Patient feels well overall this morning and says her knee pain continues to improve. Denies CP, SOB, abdominal pain, nausea, diarrhea, or other symptoms. Physical Exam Physical Exam: Constitutional: well-appearing, no acute distress, sitting up in bed CV: irregularly irregular rhythm, no murmur appreciated, extremities well- perfused Resp: CTABL, no wheezes/rales/rhonchi appreciated, no increased work of breathing MSK: bilateral knees with mild generalized tenderness to palpation, no effusion appreciated Skin: symmetric dark purplish skin discoloration noted on face Neuro: alert, oriented, no focal neurologic deficit appreciated Results & Data Results & Data ([facility]) Vital Signs (Past 12 Hours) Vital Signs Temp Pulse Resp BP Pulse Ox 12/18/21 07:23 36.8 C 83 17 152/83 H 94 12/17/21 23:10 36.4 C L 75 18 110/70 95
[2021-12-18] MEDS: CLINDAMYCIN HCL 150 MG CAP PO SCH ×3 (08:34→16:19)
[2021-12-18] MEDS: carvediloL 25 MG TAB PO SCH (08:35)
[2021-12-18 08:36] LABS: BUN Creatinine Ratio 25.7 (10-20); Calcium 9.6 mg/dl (8.5-10.1); Creatinine Clr Calc Pharmacy 41.7 ml/min; Est GFR (African American) 41.4 ml/min; Est GFR (Non-African American) 35.7 ml/min; Potassium 3.9 mmol/L (3.5-5.1)
[2021-12-18] MEDS: DOCUSATE SODIUM 100 MG CAP PO SCH (08:36)
[2021-12-18] MEDS: DULoxetine HCL 30 MG CAP PO SCH (08:36)
[2021-12-18] MEDS: dilTIAZem HCL 180 MG CAPCR PO SCH (08:36)
[2021-12-18] MEDS: dexAMETHasone 1 MG TAB PO SCH (08:37)
[2021-12-18] MEDS: DICLOFENAC SOD 1% GEL 100 GM TUBE EXT SCH ×3 (08:37→16:24)
[2021-12-18 09:03] LABS: Basophils # (auto) 0.02 K/uL (0-0.2); Basophils % (auto) 0.3 %; Eosinophils # (auto) 0.04 K/uL (0-0.5); Eosinophils % (auto) 0.5 %; Hematocrit (blood only) 38.9 % (37-47); Hemoglobin 12.9 g/dL (12.0-16.0); Immature Granulocytes # (auto) 0.03 K/uL (0.00-0.02); Immature Granulocytes % (auto) 0.4 %; Lymphocytes # (auto) 1.53 K/uL (1.2-3.4); Lymphocytes % (auto) 19.5 %; Mean Corpuscular Hemoglobin 31.6 pg (25-34); Mean Corpuscular Hgb Conc 33.2 g/dL (32-36); Mean Corpuscular Volume 95.3 fL (80-100); Mean Platelet Volume 10.1 fL (7.4-10.4); Monocytes # (auto) 0.82 K/uL (0.11-0.59); Monocytes % (auto) 10.4 %; Neutrophils # (auto) 5.41 K/uL (1.4-6.5); Neutrophils % (auto) 68.9 %; Platelet Count 310 K/uL (130-400); RDW Coefficient of Variation 14.8 % (11.5-14.5); Red Blood Count 4.08 M/uL (4.2-5.4); White Blood Count 7.85 K/uL (4.8-10.8)
[2021-12-18] MEDS: lisinopril 40 MG TAB PO SCH (09:24)
[2021-12-18] MEDS: SPIRONOLACTONE 25 MG TAB PO SCH (09:25)
[2021-12-18] MEDS: ALPRAZolam 0.5 MG TABLET PO PRN (11:06)
[2021-12-18] MEDS: ONDANSETRON 4 MG OD TAB PO PRN (12:21)
[2021-12-18 15:40] LABS: BUN Creatinine Ratio 22.9 (10-20); Calcium 9.5 mg/dl (8.5-10.1); Creatinine Clr Calc Pharmacy 41.7 ml/min; Est GFR (African American) 41.4 ml/min; Est GFR (Non-African American) 35.7 ml/min; Potassium 4.1 mmol/L (3.5-5.1)
[2021-12-18] MEDS: DIGOXIN 0.125 MG TAB PO SCH (16:18)
[2021-12-18] MEDS: RIVAROXABAN 15 MG TAB PO SCH (16:18)
--- NOTE | 2021-12-18 16:58 | Discharge Summary ---
Date of Service December 18, 2021 Admission HPI Per Admitting Provider Eva Ford is a 76yo female with history of AF, CHF, Anxiety, Chronic fatigue, CKD and hypothyroidism. She presents today with complaint of bilateral knee pain, inability to walk due to pain. Symptoms have been ongoing for the last 3 days. She describes the pain in the knees as throbbing and severe. Her son assists her at home - has been needing to help her more. She has become increasingly unsteady on her feet. He reports she has been more fatigued as well as some increased confusion such as repeating herself as well as forgetfulness. He also reports her oral intake has declined over the last several days. No trauma or fall. No change in activity. Patient is very sedentary at home and spends a large amount of time in bed. She denies fever but has been having some chills. Denies headache/neck pain/chest pain/palpitations/cough/SOB/abdominal pain/nausea/vomiting or diarrhea. She is urinating and having bowel movements without difficulty. She feels she may be retaining some fluid in her abdomen and feels pain and weakness in her thighs as well. Admission Exam Per Admitting Provider General: patient appears chronically ill, resting comfortably, NAD, non-toxic in appearance, AA&O x 4 Skin: chronic skin discoloration with areas of excoriation, no apparent infection HEENT: NC/AT, PERRL, EOMI, anicteric sclera, conjunctiva without injection, external ear normal to inspection and nontender, nares patent, moist mucus membranes, dentition intact, no oropharyngeal lesions, neck supple, trachea midline, no LAD, no thyromegaly, no JVD Heart: +S1/S2, regular, no m/r/g Lungs: equal air entry bilaterally, no rales/rhonchi/wheezes Abd: +BS, soft, NT/ND, no masses/organomegaly/ascites Ext: warm, 2+ pulses in UE/LE bilaterally, no clubbing/cyanosis or edema Knees with no obvious deformity, cool to touch with no edema, tenderness to palpation of patella as well as joint spaces, no anterior/posterior laxity on limited exam Neuro: nonfocal, patient AA&O x 4, speech intact, no facial droop, moving all extremities on command with equal strength 5/5 Principal Diagnosis Knee pain, weakness, deconditioning, POPPY Discharge Exam Constitutional: well-appearing, no acute distress, sitting up in bed CV: irregularly irregular rhythm, no murmur appreciated, extremities well- perfused Resp: CTABL, no wheezes/rales/rhonchi appreciated, no increased work of breathing MSK: bilateral knees with mild generalized tenderness to palpation, no effusion appreciated Skin: symmetric dark purplish skin discoloration noted on face Neuro: alert, oriented, no focal neurologic deficit appreciated Discharge Data Allergies Allergy/AdvReac Type Severity Reaction Status Date / Time gabapentin Allergy Unknown MULTIPLE Verified 12/15/21 18:51 REACTIONS "COULD GO ON AND ON" - SEE NOTES codeine AdvReac Intermediate SEVERE GI Verified 12/15/21 18:51 SYMPTOMS Consultations 12/15/21 22:11 ED Decision to Admit Stat Ordered Studies 12/15/21 18:27 US venous doppler [facility] Urgent Hospital Course (1) Acute bilateral knee pain: Acute bilateral knee pain, abnormal gait, weakness Etiology uncertain; suspect a large degree of chronic weakness, deconditioning playing a role; no obvious reason for acute decline No obvious deformity, exam with generalized bilateral knee tenderness XR knee: no acute fracture or joint effusion of the left knee; mild to mo derate medial and patellofemoral compartment osteoarthritis Differential includesOA flare vs PMR vs other rheumatological condition PMR considered less likely given lack of UE involvement, relatively sudden- onset, and lack of improvement on daily dexamethasone Overall, suspect symptoms were due to an OA flare Tylenol PRN, oxycodone for breakthrough pain Continue PT/OT, discharge to inpatient rehab Fall precautions POPPY on CKD 12/17: patient noted increase in creatinine from 1.18 to 1.85, suspected secondary to poor PO intake on 12/16 in the setting of multiple nephrotoxic meds At this time, patient's home meloxicam, lisinopril, furosemide, and spironolactone were held 12/18: creatinine improved to 1.44 (near baseline) after 500mL LR bolus and encouraged PO intake Restarted patient's xarelto, lisinopril, and spironolactone; continue to hold lasix and mobic We do not plan to restart patient's mobic, as risks likely outweigh benefits Trend daily BMP and restart patient's home lasix (40mg PO daily) once creatinine has fallen below 1.3 SOB: resolved Patient with new SOB developed on 12/16; O2sat 98% on RA Of note, patient was treated about two weeks ago for presumed pneumonia CXR without acute process, no sign of infection, no vascular congestion despite slightly elevated BNP on admission (259) No further intervention indicated CHF Patient reports feeling of retaining fluid in abdomen; no hypoxia; BNP mildly elevated; does appear to be clinically compensated Continue carvedilol, digoxin Spironolactone, lisinopril restarted 12/18 As above, restart patient's home lasix once creatinine has fallen below 1.3 Atrial fibrillation Rate controlled, anticoagulated on xarelto,digoxin level wnl Continue xarelto, diltiazem, digoxin, carvedilol Chronic sinusitis Continue home dexamethasone Hypothyroidism TSH wnl, continue home synthroid Anxiety Continue home xanax Headache Chronic; patient follows with neurology (last seen 11/05/21) Continue home cymbalta (2) Weakness: Total Time Total Time Spent Total Time Spent (In Minutes): see attending documentation Discharge Plan Discharge Items Patient Disposition: Transfer Inpatient Rehab Fac Reason For Visit: KNEE PAIN, WEAKNESS, INABILITY TO WALK Discharge Diagnosis: Knee pain, weakness, deconditioning, POPPY Activity: Resume your previous activity Non-emergency contact: Primary Care Provider Call non-emergency contact if: you have any medication questions and your symptoms worsen Follow-up/Referrals: Qasim Rangel MD [Primary Care Provider] - Diet: Heart Healthy Addtl Attending Provider Instructions: Acute bilateral knee pain, abnormal gait, weakness Etiology uncertain; suspect a large degree of chronic weakness, deconditioning playing a role; no obvious reason for acute decline Afebrile, hemodynamically stable, no leukocytosis; workup thus far does not suggest infection No obvious deformity, exam with generalized bilateral knee tenderness XR knee: no acute fracture or joint effusion of the left knee; mild to moderate medial and patellofemoral compartment osteoarthritis Differential includesOA flare vs PMR vs other rheumatological condition PMR considered less likely given lack of UE involvement, relatively sudden- onset, and lack of improvement on daily dexamethasone Overall, suspect symptoms were due to an OA flare Tylenol PRN, oxycodone for breakthrough pain Continue PT/OT, discharge to inpatient rehab Fall precautions POPPY on CKD 12/17: patient noted increase in creatinine from 1.18 to 1.85, suspected secondary to poor PO intake on 12/16 in the setting of multiple nephrotoxic meds At this time, patient's home meloxicam, lisinopril, furosemide, and spi ronolactone were held 12/18: creatinine improved to 1.44 (near baseline) after 500mL LR bolus and encouraged PO intake Restarted patient's xarelto, lisinopril, and spironolactone; continue to hold lasix and mobic We do not plan to restart patient's mobic, as risks likely outweigh benefits Trend daily BMP and restart patient's home lasix (40mg PO daily) once creatinine has fallen below 1.3 SOB: resolved Patient with new SOB developed on 12/16; O2sat 98% on RA Of note, patient was treated about two weeks ago for presumed pneumonia CXR without acute process, no sign of infection, no vascular congestion despite slightly elevated BNP on admission (259) No further intervention indicated CHF Patient reports feeling of retaining fluid in abdomen; no hypoxia; BNP mildly elevated; does appear to be clinically compensated Continue carvedilol, digoxin Spironolactone, lisinopril restarted 12/18 As above, restart patient's home lasix once creatinine has fallen below 1.3 Atrial fibrillation Rate controlled, anticoagulated on xarelto,digoxin level wnl Continue xarelto, diltiazem, digoxin, carvedilol Chronic sinusitis Continue home dexamethasone Hypothyroidism TSH wnl, continue home synthroid Anxiety Continue home xanax Headache Chronic; patient follows with neurology (last seen 11/05/21) Continue home cymbalta Pending Studies at Discharge: No Stand-Alone Forms: My [facility] Skilled Items Patient informed of condition?: Yes DNR: Yes Discharge Level of Care: Acute rehab Communicable Disease: No Discharge Prognosis: Stable Lines: None Urinary Catheter: No Medications and DC Order Prescriptions: Continued digoxin [Lanoxin] 125 mcg (0.125 mg) tablet 125 mcg PO PM RF: 0 clindamycin HCl 150 mg capsule 150 mg PO QID RF: 0 oxycodone 5 mg capsule 5 mg PO TID PRN (Reason: Pain) RF: 0 duloxetine [Cymbalta] 30 mg capsule,delayed release(DR/EC) 30 mg PO DAILY Qty: 30 RF: 2 carvedilol [Coreg] 25 mg tablet 25 mg PO BID RF: 0 levothyroxine [Synthroid] 112 mcg tablet 112 mcg PO QAM RF: 0 diltiazem HCl [Cartia XT] 180 mg capsule,extended release 24hr 180 mg PO QAM RF: 0 lisinopril [Zestril] 40 mg tablet 40 mg PO QAM RF: 0 Xarelto 20 mg Tablet 20 mg PO PM RF: 0 diclofenac sodium 1 % gel 4 g TOPICAL QID PRN (Reason: Pain) RF: 0 spironolactone 25 mg tablet 25 mg PO DAILY RF: 0 dexamethasone 0.5 mg/5 mL solution 1 mg PO DAILY RF: 0 alprazolam 0.5 mg tablet 0.5 mg PO TID PRN (Reason: Anxiety) RF: 0 cyproheptadine 2 mg/5 mL Syrup 2 mg PO DAILY PRN (Reason: ALLERGIES) RF: 0 docusate sodium [Colace] 100 mg Capsule 200 mg PO DAILY RF: 0 benzocaine 20 % Gel 1 ea MUCOUS MEMBRANE DIRECTED PRN (Reason: Pain) RF: 0 melatonin 1 mg Tablet 1 mg PO HS PRN (Reason: Sleep) RF: 0 ondansetron 4 mg tablet,disintegrating 4 mg PO BID PRN (Reason: nausea and vomiting) RF: 0 acetaminophen [Tylenol Extra Strength] 500 mg Tablet 1,000 mg PO Q6 PRN (Reason: Pain) RF: 0 benzonatate 100 mg capsule 100 mg PO TID PRN (Reason: Cough) RF: 0 clindamycin phosphate 1 % solution 1 applic topical HS RF: 0 zolpidem 12.5 mg tablet,ext release multiphase 12.5 mg PO HS PRN (Reason: Sleep) RF: 0 Discontinued furosemide [Lasix] 40 mg tablet 40 mg PO QAM RF: 0 meloxicam 7.5 mg tablet 7.5 mg PO DAILY PRN (Reason: Pain) RF: 0 Discharge Orders: Discharge Order (Routine); Ordered 12/18/21 Ordered By: Nikos Haynes/Other Patient Handouts: Communicating About Pain, Pain Management Opioids Admission Data Admit Date/Time: 12/15/21 22:58 Attending Provider: Luke Wagoner Admit Provider: Nano Herman Primary Care Provider: Qasim Rangel Other Providers: Nano Herman ; [facility] Other Interventions: Discharge Summary Assessment (RN) Last Done: 12/18/21 16:37 Supervising Physician Co-Signing Physician Notes I personally examined the patient and verified all love points of history and exam, discussed case, and agree with decision making with Dr Menendez Feeling better and up to going to rehab vitals noted nad heent nc at mmm breathing unlabored no accessory muscles good effort skin no rashes no pallor or icterus weakness/knee pain -DJD seems to be improving. Malaise has resolved, was unclear cause. Low AM cortisol not surprising given that she is on chronic steroids, could pursue with cosyntropin stim, but given that she is feeling better will refrain from checking this for now -voltaren gel, PT/OT, for rehab Elevated creatinine/POPPY on CKDimproved with fluids and holding some of her home meds. outpt f/u Resident Activity Tracking Resident Involvement: Resident Care Provided Care Provided: Adult Hospital Medicine
--- NOTE | 2021-12-18 17:08 | Electrocardiogram Report ---
Test Reason : Blood Pressure : / mmHG Vent. Rate : 071 BPM Atrial Rate : 087 BPM P-R Int : 000 ms QRS Dur : 102 ms QT Int : 380 ms P-R-T Axes : 000 -45 -77 degrees QTc Int : 412 ms Atrial fibrillation Left axis deviation Inferior infarct (cited on or before 08-JUL-2021) Abnormal ECG When compared with ECG of 15-DEC-2021 18:40, No significant change Confirmed by Qasim Casillas ([id number]) on 12/18/2021 5:08:31 PM Referred By: REFERRED SELF Confirmed By:Qasim Casillas
--- NOTE | 2021-12-18 17:10 | Electrocardiogram Report ---
Test Reason : Blood Pressure : / mmHG Vent. Rate : 076 BPM Atrial Rate : 220 BPM P-R Int : 000 ms QRS Dur : 098 ms QT Int : 372 ms P-R-T Axes : 000 -37 041 degrees QTc Int : 418 ms Atrial fibrillation with premature ventricular or aberrantly conducted complexes Left axis deviation Inferior infarct (cited on or before 08-JUL-2021) Abnormal ECG When compared with ECG of 18-DEC-2021 11:55, (unconfirmed) No significant change Confirmed by Qasim Casillas ([id number]) on 12/18/2021 5:09:38 PM Referred By: REFERRED SELF Confirmed By:Qasim Casillas
--- NOTE | 2021-12-18 18:38 | Billing Data ---
Date of Service December 18, 2021 Coding Level of Care Code D/C DAY MANAGEMENT <30 MINS
== END 2021-12-18 16:56 | DRG 554 ==
LOC: ED 18:02 → 3N 22:58 → SUATTDRO 22:58 → 3N 12-16 00:05

== ENCOUNTER 2022-07-28 04:56 | Inpatient (IN) ==
[2022-07-28 05:28] LABS: Basophils # (auto) 0.02 K/uL (0-0.2); Basophils % (auto) 0.2 %; Eosinophils # (auto) 0.05 K/uL (0-0.50); Eosinophils % (auto) 0.5 %; Hemoglobin 11.7 g/dl (12.0-16.0); Immature Granulocytes # (auto) 0.13 K/uL (0.00-0.02); Immature Granulocytes % (auto) 1.3 %; Lymphocytes # (auto) 0.74 K/uL (1.2-3.4); Lymphocytes % (auto) 7.5 %; Mean Corpuscular Hemoglobin 34.2 pg (25.0-34.0); Mean Corpuscular Hgb Conc 34.4 g/dL (32.0-36.0); Mean Corpuscular Volume 99.4 fL (80.0-100.0); Mean Platelet Volume 10.1 fL (9.4-12.3); Monocytes # (auto) 0.96 K/uL (0.24-0.82); Monocytes % (auto) 9.7 %; Neutrophils # (auto) 7.95 K/uL (1.4-6.5); Neutrophils % (auto) 80.8 %; Platelet Count 258 K/uL (130-400); RDW Coefficient of Variation 15.4 % (11.5-14.5); Red Blood Count 3.42 M/uL (3.93-5.22); White Blood Count 9.85 K/ul (4.8-10.8)
[2022-07-28 06:03] LABS: Appearance Urine Cloudy (Clear); Bacteria Urine Automated 4+ (Negative); Bilirubin Urine Negative (Negative); Blood Urine 1+ (Negative); Color Urine Yellow; Epithelial Cell Urine Auto 0-5 /lpf (0-5); Glucose Urine UA Negative (Negative); Ketones Urine Negative (Negative); Leukocyte Esterase Urine 3+ (Negative); Nitrite Urine Positive (Negative); Protein Urine Negative (Negative); RBC Urine Automated 0-4 /hpf (0-4); Specific Gravity Urine 1.017 (1.000-1.030); Urobilinogen Urine Negative (Negative); WBC Urine Automated >30 /hpf (0-5); pH Urine 7.5 (4.5-7.5)
[2022-07-28 06:10] LABS: Troponin I High Sensitivity 10.8 pg/ml (0-14)
[2022-07-28] MEDS: SODIUM CHLORIDE 0.9% 1000ML 1,000 ML IV SCH ×3 (06:31→16:17)
[2022-07-28 06:43] LABS: Alanine Aminotransferase 25 U/L (7-52); Albumin Globulin Ratio 1.3 (0.9-2); Alkaline Phosphatase 40 U/L (34-104); Anion Gap 7 (3-11); Aspartate Aminotransferase 12 U/L (13-39); Bilirubin,Total 0.4 mg/dl (0.2-1.0); Blood Urea Nitrogen 131 mg/dl (6-23); Calcium 10.4 mg/dl (8.5-10.1); Carbon Dioxide 27 mmol/L (21-32); Chloride 100 mmol/L (98-107); Est GFR (Non-African American) 27.6 ml/min; Glucose 138 mg/dl (70-99(Fasting)); Potassium 4.7 mmol/L (3.5-5.1); Sodium 134 mmol/L (136-145)
--- NOTE | 2022-07-28 06:52 | CT Scan Report ---
CT OF THE CERVICAL SPINE WITHOUT CONTRAST CLINICAL HISTORY: trauma COMPARISON STUDY: CT of the neck October 22, 2020. TECHNIQUE: Helical axial images of the cervical spine were obtained without IV contrast. Sagittal a nd coronal reconstructions were viewed. Automated exposure control was utilized for the study. A do se lowering technique was utilized adhering to the principles of ALARA. FINDINGS: Alignment of the cervical spine is anatomic. Vertebral body heights are maintained. No acut e cervical spine fracture or subluxation is present. There is no prevertebral edema. Facet joints are intact. Multilevel degenerative changes within the cervical spine are present. Multinodular thyroid gland is incidentally noted. This is similar in appearance to CT of October 22, 2020. Right sphenoid si nus mucosal thickening is present. IMPRESSION: No acute cervical spine fracture or subluxation. ACT 112: Negative or not required by law. Electronically signed by: Clarence Mcadams M.D. 07/28/2022 6:50 AM
[2022-07-28] MEDS ORDERED: cefTRIAXone SODIUM 2,000 MG/70 ML BAG IV STA (07:12)
--- NOTE | 2022-07-28 07:22 | CT Scan Report ---
CT head/brain wo con CLINICAL HISTORY: trauma Technique: Contiguous axial CT images of the head were acquired from the base of the skull to the jacquie stephanie without intravenous contrast administration. Images were viewed in brain, subdural and bone [facility] ws. Automated dose lowering techniques and/or adjustment according to patient size were utilized for this exam. Comparison: Comparison is made to CT head 04/05/2022 Findings: Areas of decreased attenuation are present in the periventricular and subcortical white matter bilate rally consistent with small vessel ischemic disease. Generalized cerebral atrophy with commensurate e nlargement of the ventricles, sulci, and cisterns is also present. There is no acute intracranial hem orrhage or evidence of acute territorial infarction. No shift of the midline structures, mass effect, or extra-axial abnormalities are shown. Atherosclerotic calcifications are present in the intracran ial segments of the internal carotid arteries. Imaged portions of the paranasal sinuses and mastoid air cells are clear. The orbits appear normal. There are no acute fractures of the calvaria or scalp swelling. Impression: No acute intracranial hemorrhage, no evidence of acute territorial infarction or other acute intracra nial disease process. ACT 112: Negative or not required by law. Electronically signed by: Raffi Kauffman M.D. 07/28/2022 7:21 AM
--- NOTE | 2022-07-28 08:07 | Emergency Department Note ---
History of Present Illness General Chief complaint: Weakness Stated complaint: Weakness, AMS Time Seen by Provider: 07/28/22 05:17 Source: EMS Mode of arrival: ambulatory Limitations: no limitations and altered mental status History of Present Illness Provider complaint: weakness, confusion This is a 77-year-old female presents emergency department via EMS due to concern for weakness, confusion, and sliding onto the floor out of a chair. EMS reports she has a history of chronic facial discoloration from an antibiotic many years ago as well as history of chronic lower extremity edema. She does live at home with family. They deny noting any difficulty breathing. Prehospital check of blood sugar was not low. Patient is anticoagulated due to history of atrial fibrillation. Home Medications Medication Instructions Recorded Confirmed Type levothyroxine 112 mcg tablet 112 mcg PO QAM 11/30/18 04/06/22 History (Synthroid) digoxin 125 mcg (0.125 mg) tablet 125 mcg PO PM 07/07/19 04/06/22 History (Lanoxin) diltiazem HCl 180 mg 180 mg PO QAM 12/11/19 04/06/22 History capsule,extended release 24 hr (Cartia XT) lisinopril 40 mg tablet (Zestril) 40 mg PO QAM 12/11/19 04/06/22 History carvedilol 25 mg tablet (Coreg) 25 mg PO BID 04/22/20 04/06/22 History acetaminophen 500 mg tablet 1,000 mg PO Q6 PRN Pain 04/30/21 04/06/22 History (Tylenol Extra Strength) rivaroxaban 20 mg tablet (Xarelto) 20 mg PO PM 06/03/21 04/06/22 History benzonatate 100 mg capsule 100 mg PO TID PRN Cough 06/20/21 04/06/22 History duloxetine 30 mg capsule,delayed 30 mg PO DAILY #30 caps 11/05/21 04/06/22 Rx release (Cymbalta) alprazolam 0.5 mg tablet 0.5 mg PO TID PRN Anxiety 12/15/21 04/06/22 History cyproheptadine 2 mg/5 mL oral syrup 2 mg PO DAILY PRN ALLERGIES 12/15/21 04/06/22 History dexamethasone 0.5 mg/5 mL oral 1 mg PO DAILY 12/15/21 04/06/22 History solution docusate sodium 100 mg capsule 200 mg PO DAILY 12/15/21 04/06/22 History (Colace) melatonin 1 mg tablet 1 mg PO HS PRN Sleep 12/15/21 04/06/22 History ondansetron 4 mg disintegrating 4 mg PO BID PRN nausea and vomiting 12/15/21 04/06/22 History tablet clindamycin HCl 150 mg capsule 150 mg PO QID 04/06/22 04/06/22 History furosemide 40 mg tablet 40 mg PO DAILY 04/06/22 04/06/22 History oxycodone 5 mg tablet 5 mg PO Q6H PRN Pain 04/06/22 04/06/22 History Allergies Allergy/AdvReac Type Severity Reaction Status Date / Time gabapentin Allergy Unknown MULTIPLE Verified 12/15/21 18:51 REACTIONS "COULD GO ON AND ON" - SEE NOTES codeine AdvReac Intermediate SEVERE GI Verified 12/15/21 18:51 SYMPTOMS Past Med/Surg History Medical History Ambulatory dysfunction LIMITED MOBILITY D/T CHRONIC WEAKNESS PER PT & SON Anxiety Atrial fibrillation DX 8 YR AGO, HX CARDIOVERSION Atrial fibrillation with RVR no pacer> follows with Dr. March > stable Cardiomyopathy CHF (congestive heart failure) Chronic fatigue syndrome Chronic pain CKD (chronic kidney disease), stage III Gallbladder problem POSSIBLE PER PT...NO MEDICAL DX OF, NO EVAL FOR GI problem "INFLAMMATION OF DIGESTIVE TRACT" - PT DENIES MEDICAL DX OF DIGESTIVE PROBLEM SUCH IBS, CHRON'S, DIVERTICULTIS,COLITIS, ETC... Headache History of anemia History of recurrent UTIs REPORTS HX BLADDER INFECTIONS - NONE CURRENT Hypothyroidism Lumbar facet joint syndrome Multinodular goiter ? HX OF Neck stiffness PT REPORTS ONGOING PROBLEM, POSTURE RELATED SOB (shortness of breath) on exertion TIA (transient ischemic attack) pt reports was stroke like symptoms but was related to being sick, not actual TIA Weakness CHRONIC Surgical History H/O breast augmentation History of colonoscopy History of laparoscopy "LASER LAPARAOSCOPIES" S/P tooth extraction HX Family History Mother , age 83 with lung cancer and COPD Lung cancer COPD (chronic obstructive pulmonary disease) Family history of diabetes mellitus Father , in 70s of bladder cancer and COPD Bladder cancer COPD (chronic obstructive pulmonary disease) Family history of diabetes mellitus Brother Family history of diabetes mellitus Other Allergies Asthma Cancer Family history of bleeding disorder Family history of colon cancer in father Hearing loss Heart disease Hypertension Denies family history of Stroke Social History Smoking Status: Never smoker Second Hand Exposure: No; Hx Alcohol Use: No Hx Substance Use: No Preferred Language: Korean Communication Ability: Impaired Communication Ability Comment: Cataracts Visual Impairment: No Limitations Inbound Sales Advisor Required: No Beliefs That Will Affect Care: None marital status: Single Current Living Situation: Family Current Living Situation Comment: lives with son current occupational status: retired and disabled How many Children do You have: 2 Other Information That Helps Us Care for You: No other: Disabled in her 50s. 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 Feels Safe at Home: Yes Assistive Devices: Glasses, Hearing Aid - Bilateral and Walker Review of Systems A total of 10 systems reviewed and were otherwise negative All systems reviewed & are unremarkable except as noted in HPI & below Physical Exam Vital Signs Vital Signs - 24 hr 07/28/22 05:08 07/28/22 05:14 07/28/22 05:42 Temperature 36.5 C Temperature Source Oral Pulse Rate 59 L Pulse Rate [Finger] 71 Respiratory Rate 22 21 Respiratory Effort / Characteristics Non-Labored Spontaneous Respiratory Depth Normal Blood Pressure 112/60 Blood Pressure [Right Arm] 107/48 L Blood Pressure Mean 77 Blood Pressure Mean [Right Arm] 67 Pulse Oximetry 100 97 Oxygen Delivery Method Room Air Room Air Room Air Sepsis Recent Fever Within 48 Hours No Sepsis New/Unexplained Change in Mental Status N/A Sepsis Action Taken by Nursing No Action Required GENERAL: alert, unwell appearing, well nourished, no distress, non-toxic EYE EXAM: normal conjunctiva, PERRL and EOM's grossly intact OROPHARYNX: no exudate, no erythema, lips, buccal mucosa, and tongue normal and mucous membranes are moist NECK: supple, no nuchal rigidity, no adenopathy, non-tender LUNGS: Clear to auscultation. Normal chest wall mechanics, no w/r/r HEART: no murmurs, S1 normal and S2 normal ABDOMEN: abdomen soft, non-tender, normo-active bowel sounds, no masses, no rebound or guarding. BACK: Back is symmetrical on inspection and there is no deformity, no midline tenderness, no CVA tenderness. SKIN: no rashes and no bruising UPPER EXTREMITIES: upper extremities are grossly normal. FROM, nml pulses b/l. LOWER EXTREMITIES: No pitting edema. FROM, nml pulses b/l. NEURO EXAM: Normal sensorium, cranial nerves II-XII grossly intact, normal speech, no gross weakness of arms, no gross weakness of legs. Gross sensation intact. Course Course 839: Son, Josue, returned my call. We discussed patient's condition and HPI. He feels patient has been worsening over the course of the week with increased weakness and decreased ability to safely use her walker at home. He states she is had a decreased appetite. He says the last medication change she had was the addition of a medication on July 15 for constipation. He states she has not been taking any sleep medications. He states although she has chronic lower extremity edema he feels like it has been worsening recently. He also states she recently had bronchiolitis and was given steroids. He states the medication that originally caused the facial discoloration many years ago was minocycline. Administered Medications Docusate Sodium (Docusate Sodium 100 Mg Cap) 200 mg PO DAILY [facility] Stop: 08/28/22 08:59 Last Admin: 07/29/22 09:41 Dose: Not Given Documented By: AM Sodium Chloride (Nss 1000ml) 1,000 mls @ 100 mls/hr IV .Q10H [facility] Stop: 08/27/22 10:29 Last Admin: 07/29/22 02:59 Dose: 100 mls/hr Documented By: Infusion: 07/29/22 02:59 Dose: 0 mls/hr Documented By: Infusion: 07/28/22 23:51 Dose: 0 mls/hr Documented By: Admin: 07/28/22 16:17 Dose: 100 mls/hr Documented By: AM Ceftriaxone Sodium 2,000 mg/ (Dextrose) 70 mls @ 140 mls/hr IV Q24H [facility] Stop: 08/08/22 06:59 Last Infusion: 07/29/22 08:16 Dose: 0 mls/hr Documented By: Admin: 07/29/22 07:39 Dose: 140 mls/hr Documented By: AM Hydrocortisone Sodium (Succinate 50 mg/ Syringe) 1 mls @ 4 mls/min IV Q6H [facility] Stop: 07/31/22 15:29 Last Admin: 07/29/22 09:43 Dose: 4 mls/min Documented By: Admin: 07/29/22 02:59 Dose: 4 mls/min Documented By: Admin: 07/28/22 20:03 Dose: 4 mls/min Documented By: Admin: 07/28/22 16:01 Dose: 4 mls/min Documented By: AM Rivaroxaban (Rivaroxaban 15 Mg Tab) 15 mg PO QDD [facility] Stop: 08/27/22 16:29 Last Admin: 07/28/22 17:04 Dose: Not Given Documented By: AM Discontinued Medications Sodium Chloride (Nss 1000ml) 1,000 mls @ 125 mls/hr IV .Q8H [facility] Stop: 08/27/22 06:14 Last Infusion: 07/28/22 16:18 Dose: 0 mls/hr Documented By: Infusion: 07/28/22 16:17 Dose: 100 mls/hr Documented By: Admin: 07/28/22 15:32 Dose: 125 mls/hr Documented By: Infusion: 07/28/22 14:31 Dose: 125 mls/hr Documented By: Admin: 07/28/22 06:31 Dose: 125 mls/hr Documented By: CLAIRE Ceftriaxone Sodium (Rocephin) 2,000 mg in 70 mls @ 140 mls/hr IV NOW STA Stop: 07/28/22 07:41 Last Infusion: 07/28/22 08:20 Dose: 0 mls/hr Documented By: Admin: 07/28/22 07:49 Dose: 140 mls/hr Documented By: MONCHO Sodium Chloride (Nss) 500 mls @ 999 mls/hr IV .Q31M ONE Stop: 07/28/22 10:55 Last Infusion: 07/28/22 12:20 Dose: 0 mls/hr Documented By: Admin: 07/28/22 11:23 Dose: 999 mls/hr Documented By: MONCHO Glucagon 10 mg/ Syringe 10 mls @ 1 mls/min IV NOW ONE Stop: 07/28/22 15:48 Last Admin: 07/28/22 16:13 Dose: 1 mls/min Documented By: AM Naloxone HCl (Naloxone Hcl 0.4 Mg/1 Ml Vial/Carp) 0.02 mg IV NOW STA Stop: 07/28/22 15:28 Last Admin: 07/28/22 15:40 Dose: 0.02 mg Documented By: AM Medical Decision Making Differential Diagnosis Differential Diagnosis includes but is not limited to dehydration, stroke, anemia, hypoglycemia, hyponatremia, hypernatremia, urinary tract infection, pneumonia, bronchitis, sepsis, gastroenteritis, additional abdominal pathology, metabolic abnormalities and infections. Medical Records Attestation: I reviewed the patient's medical records. Home Medications Current Medication List: was personally reviewed by me Laboratory Data Attestation: I reviewed the patient's lab results. Result diagrams: 07/28/22 05:10 07/28/22 16:25 Lab Results 07/28/22 07/28/22 07/28/22 Range/Units 05:10 05:10 05:10 WBC 9.85 (4.8-10.8) K/ul RBC 3.42 L (3.93-5.22) M/uL Hgb 11.7 L (12.0-16.0) g/dl Hct 34.0 L (34.1-44.9) % MCV 99.4 (80.0-100.0) fL MCH 34.2 H (25.0-34.0) pg MCHC 34.4 (32.0-36.0) g/dL RDW Std Deviation 56.0 H (36.4-46.3) fL RDW Coeff of [place] 15.4 H (11.5-14.5) % Plt Count 258 (130-400) K/uL MPV 10.1 (9.4-12.3) fL Immature Gran % (Auto) 1.3 % Neut % (Auto) 80.8 % Lymph % (Auto) 7.5 % [place] % (Auto) 9.7 % Eos % (Auto) 0.5 % Baso % (Auto) 0.2 % Neut # (Auto) 7.95 H (1.4-6.5) K/uL Lymph # (Auto) 0.74 L (1.2-3.4) K/uL [place] # (Auto) 0.96 H (0.24-0.82) K/uL Eos # (Auto) 0.05 (0-0.50) K/uL Baso # (Auto) 0.02 (0-0.2) K/uL Immature Gran # (Auto) 0.13 H (0.00-0.02) K/uL Sodium 134 L (136-145) mmol/L Potassium 4.7 (3.5-5.1) mmol/L Chloride 100 (98-107) mmol/L Carbon Dioxide 27 (21-32) mmol/L Anion Gap 7 (3-11) BUN 131 H (6-23) mg/dl Creatinine 1.77 H (0.6-1.2) mg/dl Est Cr Clr Drug Dosing Not Reportable Est GFR ( Amer) 32.0 ml/min Est GFR (Non-Af Amer) 27.6 ml/min BUN/Creatinine Ratio 74.0 H (10-20) Glucose 138 H (70-99(Fasting)) mg/dl Calcium 10.4 H (8.5-10.1) mg/dl Magnesium (1.7-2.4) mg/dl Total Bilirubin 0.4 (0.2-1.0) mg/dl AST 12 L (13-39) U/L ALT 25 (7-52) U/L Alkaline Phosphatase 40 (34-104) U/L Troponin I High Sens 10.8 (0-14) pg/ml Total Protein 7.0 (6.0-8.3) gm/dl Albumin 4.0 (3.4-5.0) gm/dl Globulin 3.0 (2.5-4.0) gm/dl Albumin/Globulin Ratio 1.3 (0.9-2) TSH 0.734 (0.300-4.500) uIu/ml Urine Color Urine Appearance (Clear) Urine pH (4.5-7.5) Ur Specific [place] (1.000-1.030) Urine Protein (Negative) Urine Glucose (UA) (Negative) Urine Ketones (Negative) Urine Blood (Negative) Urine Nitrite (Negative) Urine Bilirubin (Negative) Urine Urobilinogen (Negative) Ur Leukocyte Esterase (Negative) Urine WBC (Auto) (0-5) /hpf Urine RBC (Auto) (0-4) /hpf U Hyaline Cast (Auto) (0-5) /lpf U Epithel Cells (Auto) (0-5) /lpf Urine Bacteria (Auto) (Negative) 07/28/22 07/28/22 07/28/22 Range/Units 05:10 07:35 07:35 WBC (4.8-10.8) K/ul RBC (3.93-5.22) M/uL Hgb (12.0-16.0) g/dl Hct (34.1-44.9) % MCV (80.0-100.0) fL MCH (25.0-34.0) pg MCHC (32.0-36.0) g/dL RDW Std Deviation (36.4-46.3) fL RDW Coeff of [place] (11.5-14.5) % Plt Count (130-400) K/uL MPV (9.4-12.3) fL Immature Gran % (Auto) % Neut % (Auto) % Lymph % (Auto) % [place] % (Auto) % Eos % (Auto) % Baso % (Auto) % Neut # (Auto) (1.4-6.5) K/uL Lymph # (Auto) (1.2-3.4) K/uL [place] # (Auto) (0.24-0.82) K/uL Eos # (Auto) (0-0.50) K/uL Baso # (Auto) (0-0.2) K/uL Immature Gran # (Auto) (0.00-0.02) K/uL Sodium (136-145) mmol/L Potassium (3.5-5.1) mmol/L Chloride (98-107) mmol/L Carbon Dioxide (21-32) mmol/L Anion Gap (3-11) BUN (6-23) mg/dl Creatinine (0.6-1.2) mg/dl Est Cr Clr Drug Dosing Est GFR ( Amer) ml/min Est GFR (Non-Af Amer) ml/min BUN/Creatinine Ratio (10-20) Glucose (70-99(Fasting)) mg/dl Calcium (8.5-10.1) mg/dl Magnesium 3.3 H (1.7-2.4) mg/dl Total Bilirubin (0.2-1.0) mg/dl AST (13-39) U/L ALT (7-52) U/L Alkaline Phosphatase (34-104) U/L Troponin I High Sens 11.3 (0-14) pg/ml Total Protein (6.0-8.3) gm/dl Albumin (3.4-5.0) gm/dl Globulin (2.5-4.0) gm/dl Albumin/Globulin Ratio (0.9-2) TSH 0.697 (0.300-4.500) uIu/ml Urine Color Yellow Urine Appearance Cloudy A (Clear) Urine pH 7.5 (4.5-7.5) Ur Specific [place] 1.017 (1.000-1.030) Urine Protein Negative (Negative) Urine Glucose (UA) Negative (Negative) Urine Ketones Negative (Negative) Urine Blood 1+ H (Negative) Urine Nitrite Positive A (Negative) Urine Bilirubin Negative (Negative) Urine Urobilinogen Negative (Negative) Ur Leukocyte Esterase 3+ H (Negative) Urine WBC (Auto) >30 H (0-5) /hpf Urine RBC (Auto) 0-4 (0-4) /hpf U Hyaline Cast (Auto) 1-5 (0-5) /lpf U Epithel Cells (Auto) 0-5 (0-5) /lpf Urine Bacteria (Auto) 4+ H (Negative) Imaging Data Radiologist's Impression: Cervical Spine CT 07/28/22 06:03 CT OF THE CERVICAL SPINE WITHOUT CONTRAST CLINICAL HISTORY: trauma COMPARISON STUDY: CT of the neck October 22, 2020. TECHNIQUE: Helical axial images of the cervical spine were obtained without IV contrast. Sagittal and coronal reconstructions were viewed. Automated exposure control was utilized for the study. A dose lowering technique was utilized adhering to the principles of ALARA. FINDINGS: Alignment of the cervical spine is anatomic. Vertebral body heights are maintained. No acute cervical spine fracture or subluxation is present. There is no prevertebral edema. Facet joints are intact. Multilevel degenerative changes within the cervical spine are present. Multinodular thyroid gland is incidentally noted. This is similar in appearance to CT of October 22, 2020. Right sphenoid sinus mucosal thickening is present. IMPRESSION: No acute cervical spine fracture or subluxation. ACT 112: Negative or not required by law. Electronically signed by: Clarence Mcadams M.D. 07/28/2022 6:[address] 07/28/22 06:03 CT head/brain wo con CLINICAL HISTORY: trauma Technique: Contiguous axial CT images of the head were acquired from the base of the skull to the vertex without intravenous contrast administration. Images were viewed in brain, subdural and bone windows. Automated dose lowering techniques and/or adjustment according to patient size were utilized for this exam. Comparison: Comparison is made to CT head 04/05/2022 Findings: Areas of decreased attenuation are present in the periventricular and subcortical white matter bilaterally consistent with small vessel ischemic disease. Generalized cerebral atrophy with commensurate enlargement of the ventricles, sulci, and cisterns is also present. There is no acute intracranial hemorrhage or evidence of acute territorial infarction. No shift of the midline structures, mass effect, or extra-axial abnormalities are shown. Atherosclerotic calcifications are present in the intracranial segments of the internal carotid arteries. Imaged portions of the paranasal sinuses and mastoid air cells are clear. The orbits appear normal. There are no acute fractures of the calvaria or scalp swelling. Impression: No acute intracranial hemorrhage, no evidence of acute territorial infarction or other acute intracranial disease process. ACT 112: Negative or not required by law. Electronically signed by: Raffi Kauffman M.D. 07/28/2022 7:21 AM ECG Data Attestation: I personally reviewed and interpreted this ECG as follows: Indication: + weakness Rate (beats per minute): 69 Rhythm: + atrial fibrillation ECG Intervals/blocks: + Normal QRS and + Normal QT ECG [place]: + Left axis deviation ECG ST segments: + Nonspecific ST abnormalities MDM Narrative An order was placed for continuous cardiac monitoring. The monitor shows a rate of _68__ with _atrial fibrillation__ rhythm. This is a 77-year-old female with complicated past medical history who presents due to increased weakness and confusion per family. Patient was afebrile and hemodynamically stable, found to be in her usual atrial fibrillation. There is no reported significant trauma. Due to increased confusion and weakness, labs drawn and sent, patient sent for CT imaging, and she was started on IV fluids. Patient ultimately found to have a urinary tract infection which she has had previously. IV antibiotic started while in the emergency room. Due to increased systemic symptoms in the setting of a new UTI, case discussed with hospitalist for additional evaluation and management. Patient with mild POPPY compared to prior baseline. I do not suspect bacteremia/sepsis or obstructive uropathy at this time. Patient remained hemodynamically stable while in the emergency room. I do not suspect other occult traumatic injury related to her sliding out of a chair onto the floor. Impression & Plan Weakness, Confusion, Acute UTI (urinary tract infection), Fall Discharge Plan Visit Data Chief Complaint: Weakness Stated Complaint: Weakness, AMS ED Provider: [place] Discharge Problem: Weakness, Confusion, Acute UTI (urinary tract infection), Fall Patient Disposition: Admitted As Inpatient Condition: Fair Discharge Instructions Interventions: ED Discharge Assessment Last Done: 07/28/22 12:15
[2022-07-28 08:20] LABS: Magnesium 3.3 mg/dl (1.7-2.4)
[2022-07-28 08:25] LABS: Troponin I High Sensitivity 11.3 pg/ml (0-14)
[2022-07-28] MEDS ORDERED: SODIUM CHLORIDE 0.9% 500 ML IV ONE (10:25)
[2022-07-28] MEDS ORDERED: ONDANSETRON INJ 2 MG/ML 2 ML VIAL IV PRN (10:29)
--- NOTE | 2022-07-28 10:40 | History & Physical Report ---
Date of Service July 28, 2022 Assessment & Plan (1) UTI (urinary tract infection): Plan: 77-year-old female presenting with weakness, altered mental status, found to have UTI requiring ongoing management in the setting of multiple comorbidities and need for close hemodynamic monitoring. - Review of prior microbiology suggests no resistant organisms. Continue with Rocephin at this point pending urine cultures. (2) Metabolic encephalopathy: Plan: - Multifactorial in the setting of UTI, POPPY with likely degree of uremia, polypharmacy. - CT Head w/o acute findings. - No focal neurological deficits on exam. - Will monitor for improvement of symptoms while treating underlying conditions (i.e. UTI, POPPY, withholding CAB[employer]AGE SAL[employer] depressing Rx). (3) AMS (altered mental status): Plan: See above. (4) Acute kidney injury superimposed on chronic kidney disease: Plan: Ongoing gentle hydration for now. Monitor I&Os closely in the patient w/ h/o CHF (5) Chronic, continuous use of opioids: Plan: - Hold Fentanyl patch and Oxy for now. (6) Weakness: Plan: Acute on chronic. Likely 2/2 to above. (7) Hypothyroidism: Plan: TSH level wnl. Continue home Rx dosing. (8) Afib: Plan: Continue home antiarrhythmic and anticoagulation drugs. History of Present Illness Chief Complaint: Weakness, altered mental status Primary Care Provider: Qasim Rangel MD Patient is a 77-year-old female with extensive past medical history including recurrent UTIs, chronic pain syndromes, CKD 3, A. fib anticoagulated on Xarelto, hypothyroidism, pulmonary hypertension, cardiomyopathy, CHF, TIA, psychiatric issues, and hyponatremia. Patient was brought to the emergency department as she has had increasing confusion and weakness over the past week. She was found on the ground after what appeared to be sliding out of her chair at home. She lives with her son who is her primary calender roll press operator. Other stork information was initially limited secondary to patient's altered mental status. Laboratory suggests UTI. CT head and cervical spine without acute findings. Chest x-ray demonstrates no acute findings. She was treated with IV Rocephin and received IV fluids. She was noted to have an POPPY on CKD 3, but otherwise without other significant laboratory findings. Upon my evaluation in the emergency department, the patient is confused and somnolent. She does awaken to stimuli. She is unable to provide historical information. Patient son does eventually present to bedside. He reports that his mom recently had a long stay at a [facility] in [facility]. Some medications were changed at that point to include paliperidone. He confirms that she does take a number psychiatric medicines and sleep aids, however she is not taking her sleep medication for the past few weeks secondary to increasing confusion. Otherwise, he reports that she has been getting her medications as prescribed. He reports that she has not had any significant complaints lately, but he does suggest that she may be experiencing some symptoms as she typically likes her room cold, however she is have the heat up relatively high as of recently. 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 Allergies Allergy/AdvReac Type Severity Reaction Status Date / Time gabapentin Allergy Unknown MULTIPLE Verified 12/15/21 18:51 REACTIONS "COULD GO ON AND ON" - SEE NOTES codeine AdvReac Intermediate SEVERE GI Verified 12/15/21 18:51 SYMPTOMS Home Medications Medication Instructions Recorded Confirmed Type levothyroxine 112 mcg tablet 112 mcg PO QAM 11/30/18 04/06/22 History (Synthroid) digoxin 125 mcg (0.125 mg) tablet 125 mcg PO PM 07/07/19 04/06/22 History (Lanoxin) diltiazem HCl 180 mg 180 mg PO QAM 12/11/19 04/06/22 History capsule,extended release 24 hr (Cartia XT) lisinopril 40 mg tablet (Zestril) 40 mg PO QAM 12/11/19 04/06/22 History carvedilol 25 mg tablet (Coreg) 25 mg PO BID 04/22/20 04/06/22 History acetaminophen 500 mg tablet 1,000 mg PO Q6 PRN Pain 04/30/21 04/06/22 History (Tylenol Extra Strength) rivaroxaban 20 mg tablet (Xarelto) 20 mg PO PM 06/03/21 04/06/22 History benzonatate 100 mg capsule 100 mg PO TID PRN Cough 06/20/21 04/06/22 History duloxetine 30 mg capsule,delayed 30 mg PO DAILY #30 caps 11/05/21 04/06/22 Rx release (Cymbalta) alprazolam 0.5 mg tablet 0.5 mg PO TID PRN Anxiety 12/15/21 04/06/22 History cyproheptadine 2 mg/5 mL oral syrup 2 mg PO DAILY PRN ALLERGIES 12/15/21 04/06/22 History dexamethasone 0.5 mg/5 mL oral 1 mg PO DAILY 12/15/21 04/06/22 History solution docusate sodium 100 mg capsule 200 mg PO DAILY 12/15/21 04/06/22 History (Colace) melatonin 1 mg tablet 1 mg PO HS PRN Sleep 12/15/21 04/06/22 History ondansetron 4 mg disintegrating 4 mg PO BID PRN nausea and vomiting 12/15/21 04/06/22 History tablet clindamycin HCl 150 mg capsule 150 mg PO QID 04/06/22 04/06/22 History furosemide 40 mg tablet 40 mg PO DAILY 04/06/22 04/06/22 History oxycodone 5 mg tablet 5 mg PO Q6H PRN Pain 04/06/22 04/06/22 History Past Med/Surg History Medical History Ambulatory dysfunction LIMITED MOBILITY D/T CHRONIC WEAKNESS PER PT & SON Anxiety Atrial fibrillation DX 8 YR AGO, HX CARDIOVERSION Atrial fibrillation with RVR no pacer> follows with Dr. March > stable Cardiomyopathy CHF (congestive heart failure) Chronic fatigue syndrome Chronic pain CKD (chronic kidney disease), stage III Gallbladder problem POSSIBLE PER PT...NO MEDICAL DX OF, NO EVAL FOR GI problem "INFLAMMATION OF DIGESTIVE TRACT" - PT DENIES MEDICAL DX OF DIGESTIVE PROBLEM SUCH IBS, CHRON'S, DIVERTICULTIS,COLITIS, ETC... Headache History of anemia History of recurrent UTIs REPORTS HX BLADDER INFECTIONS - NONE CURRENT Hypothyroidism Lumbar facet joint syndrome Multinodular goiter ? HX OF Neck stiffness PT REPORTS ONGOING PROBLEM, POSTURE RELATED SOB (shortness of breath) on exertion TIA (transient ischemic attack) pt reports was stroke like symptoms but was related to being sick, not actual TIA Weakness CHRONIC Surgical History H/O breast augmentation History of colonoscopy History of laparoscopy "LASER LAPARAOSCOPIES" S/P tooth extraction HX Family History Mother , age 83 with lung cancer and COPD Lung cancer COPD (chronic obstructive pulmonary disease) Family history of diabetes mellitus Father , in 70s of bladder cancer and COPD Bladder cancer COPD (chronic obstructive pulmonary disease) Family history of diabetes mellitus Brother Family history of diabetes mellitus Other Allergies Asthma Cancer Family history of bleeding disorder Family history of colon cancer in father Hearing loss Heart disease Hypertension Denies family history of Stroke Social History Smoking Status: Never smoker Second Hand Exposure: No; Hx Alcohol Use: No Hx Substance Use: No Preferred Language: Maltese Communication Ability: Impaired Communication Ability Comment: Cataracts Visual Impairment: No Limitations Uke Operator Required: No Beliefs That Will Affect Care: None marital status: Single Current Living Situation: Family Current Living Situation Comment: lives with son current occupational status: retired and disabled How many Children do You have: 2 Other Information That Helps Us Care for You: No other: Disabled in her 50s. 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 Physical Exam Physical Exam: VITAL SIGNS - Vital signs and nursing notes were reviewed. GENERAL - 77-year-old female appearing her stated age who is in no acute distress. Somnolent and responds to verbal stimuli. Confused. SKIN - Without rashes. HEAD - NC/AT. EYES - PERRL with EOMI bilaterally. Sclera anicteric. EARS - No deformities of external structures noted on gross examination bilatera lly. NOSE - Midline and without cyanosis. No epistaxis or purulent drainage noted. MOUTH/OROPHARYNX - Without perioral cyanosis. Buccal mucosa pink and dry. NECK - Neck with FROM. Supple to palpation. No lymphadenopathy noted. No nuchal rigidity. LUNGS - Chest wall symmetric without accessory muscle use, intercostals retractions, or central cyanosis. Normal vesicular breath sounds CTA B/L. No wh eezes, rales, or rhonchi appreciated. CARDIAC - RRR with S1/S2. No murmur, rubs, or gallops appreciated. ABDOMEN - Abdominal contour obese without pulsations or visible masses. BS normoactive all four quadrants. No tenderness, palpable masses, hepatosplenomegaly, or ascites noted. EXTREMITIES - No clubbing or peripheral cyanosis. Bilateral edema of the lower extremities. +3/5 radial and dorsalis pedis pulses palpated throughout. NEUROLOGIC - No focal neurological deficits noted. Unable to perform full exam secondary to AMS. Results & Data Results & Data ([facility]) Vital Signs (Past 12 Hours) Vital Signs Temp Pulse Pulse Resp BP BP Pulse Ox 07/28/22 08:39 79 17 100 07/28/22 08:39 100/50 L 07/28/22 08:36 19 07/28/22 08:01 105/57 L 07/28/22 08:01 83 19 98 07/28/22 08:00 67 24 98 07/28/22 07:45 124/57 L 07/28/22 07:45 70 25 H 97 07/28/22 07:30 68 27 H 97 07/28/22 07:30 117/54 L 07/28/22 07:16 125/52 L 07/28/22 07:16 62 18 100 07/28/22 07:00 74 26 H 100 07/28/22 07:00 118/63 07/28/22 06:45 111/65 07/28/22 06:45 67 24 100 07/28/22 06:16 100 07/28/22 06:16 112/61 07/28/22 06:00 71 21 96 07/28/22 06:00 101/43 L 07/28/22 05:46 67 18 98 07/28/22 05:46 100/41 L 07/28/22 05:38 107/48 L 07/28/22 05:38 57 L 22 97 07/28/22 05:32 96/46 L 07/28/22 05:32 74 27 H 97 07/28/22 05:07 112/60 07/28/22 05:07 74 18 99 07/28/22 05:42 71 21 107/48 L 97 07/28/22 05:14 07/28/22 05:08 36.5 C 59 L 22 112/60 100 O2 Del Method 07/28/22 08:39 07/28/22 08:39 07/28/22 08:36 07/28/22 08:01 07/28/22 08:01 07/28/22 08:00 07/28/22 07:45 07/28/22 07:45 07/28/22 07:30 07/28/22 07:30 07/28/22 07:16 07/28/22 07:16 07/28/22 07:00 07/28/22 07:00 07/28/22 06:45 07/28/22 06:45 07/28/22 06:16 07/28/22 06:16 07/28/22 06:00 07/28/22 06:00 07/28/22 05:46 07/28/22 05:46 07/28/22 05:38 07/28/22 05:38 07/28/22 05:32 07/28/22 05:32 07/28/22 05:07 07/28/22 05:07 07/28/22 05:42 Room Air 07/28/22 05:14 Room Air 07/28/22 05:08 Room Air Code Status & VTE Plan VTE Prophylaxis Plan VTE Prophylaxis will be ordered: Yes Supervising Physician Co-Signing Physician Notes Patient seen and examined at bedside. I obtained a history and physical exam during my face to face encounter. Patient is a poor historian. I reviewed above note and agree with it. I discussed plan of care with patient and GUTIERREZ Thompson. Patient will be admitted for metabolic encephalopathy and will hold medications that may make patient confused. PG Care Time/CCT Total # of Minutes Spent Total Time Spent with Patient: Total time spent is greater than 50% in coordination of care (as documented) at patient's floor/unit and/or counseling patient: Coding Level of Care Code 86498 Initial Inpt Care Lvl 3 Diagnoses UTI (urinary tract infection) N39.0 Metabolic encephalopathy G93.41 AMS (altered mental status) R41.82 Acute kidney injury superimposed on chronic kidney disease N17.9; N18.9 Chronic, continuous use of opioids F11.90 Weakness R53.1 Hypothyroidism E03.9 Afib I48.91 Atrial fibrillation type: unspecified Time Spent (min) 55 (1) Afib Atrial fibrillation type: unspecified Qualified Code(s): I48.91 - Unspecified atrial fibrillation
[2022-07-28] MEDS ORDERED: cefTRIAXone SODIUM 1,000 MG in DEXTROSE 5% AD-VAN 50 ML IV SCH (10:45)
[2022-07-28] MEDS ORDERED: ICU Protocol for HYPERglycemia SCH (11:30)
--- NOTE | 2022-07-28 11:53 | XRay Report ---
XR pelvis 1-2V routine CLINICAL HISTORY: trauma TECHNIQUE: A single frontal view of the pelvis was obtained. Comparison: Comparison is made to CT abdomen pelvis 05/29/2021 FINDINGS: There is no evidence of an acute fracture. Degenerative changes are seen in the hip joints and lumbar spine. No soft tissue abnormality is seen. IMPRESSION: Degenerative changes without evidence of acute abnormality. ACT 112: Negative or not required by law. Electronically signed by: Raffi Kauffman M.D. 07/28/2022 11:52 AM
--- NOTE | 2022-07-28 11:54 | XRay Report ---
XR chest 1V portable CLINICAL HISTORY: trauma TECHNIQUE: Single frontal radiograph of the chest was obtained. Comparison: Comparison is made to chest radiograph 04/05/2022 FINDINGS: No lines and tubes are seen. Cardiomegaly is noted. The aortic arch is calcified. Reticular interstit ial opacities are seen. No evidence of pleural effusion or pneumothorax. IMPRESSION: No acute chest disease. Cardiomegaly is noted. ACT 112: Negative or not required by law. Electronically signed by: Raffi Kauffman M.D. 07/28/2022 11:53 AM
[2022-07-28] MEDS ORDERED: NALOXONE HCL 0.4 MG/1 ML VIAL/CARP IV STA (15:27)
[2022-07-28] MEDS ORDERED: GLUCAGON 10 MG in SYRINGE 0 ML IV ONE (15:39)
[2022-07-28] MEDS: HYDROCORTISONE SOD 50 MG in SYRINGE 0 ML IV SCH ×2 (16:01→20:03)
[2022-07-28 16:45] LABS: Base Excess ABG -3.8 mEq/L (-9-1.8); HCO3 ABG 22 mmol/L (19-24); Oxygen Saturation ABG < 60.0 % (90-95); PCO2 ABG 39 mmHg (35-46); PO2 ABG 33 mmHg (80-95); pH ABG 7.35 (7.35-7.45)
[2022-07-28 16:53] LABS: Allen Test POS (Pos)
[2022-07-28 17:04] LABS: Albumin Level 3.8 gm/dl (3.4-5.0); BUN Creatinine Ratio 81.8 (10-20); Bilirubin,Total 0.4 mg/dl (0.2-1.0); C Reactive Protein 1.56 mg/dl (0-0.5); Calcium 9.9 mg/dl (8.5-10.1); Creatinine Clr Calc Pharmacy 44.4 ml/min; Est GFR (African American) 43.6 ml/min; Est GFR (Non-African American) 37.6 ml/min; Magnesium 2.9 mg/dl (1.7-2.4); Phosphorus 3.7 mg/dl (2.5-4.9); Potassium 4.6 mmol/L (3.5-5.1); Total Protein 6.7 gm/dl (6.0-8.3)
[2022-07-28] MEDS: RIVAROXABAN 15 MG TAB PO SCH (17:04)
--- NOTE | 2022-07-28 17:04 | Electrocardiogram Report ---
Test Reason : Blood Pressure : / mmHG Vent. Rate : 074 BPM Atrial Rate : 075 BPM P-R Int : 000 ms QRS Dur : 096 ms QT Int : 406 ms P-R-T Axes : 000 -27 149 degrees QTc Int : 450 ms Poor data quality, interpretation may be adversely affected Atrial fibrillation with premature ventricular or aberrantly conducted complexes Low voltage QRS Inferior infarct (cited on or before 08-JUL-2021) Poor R wave progression, consider anterior ND vs. lead placement vs. LVH Abnormal ECG When compared with ECG of 05-APR-2022 22:41, Questionable change in initial forces of Lateral leads Nonspecific T wave abnormality, worse in Inferior leads T wave inversion now evident in Lateral leads Confirmed by Qasim Casillas ([id number]) on 07/28/2022 5:04:13 PM Referred By: REFERRED SELF Confirmed By:Qasim Casillas
--- NOTE | 2022-07-28 17:15 | Electrocardiogram Report ---
Test Reason : Blood Pressure : / mmHG Vent. Rate : 069 BPM Atrial Rate : 277 BPM P-R Int : 000 ms QRS Dur : 104 ms QT Int : 360 ms P-R-T Axes : 000 -48 255 degrees QTc Int : 385 ms Atrial fibrillation with premature ventricular or aberrantly conducted complexes Left axis deviation Inferior infarct (cited on or before 08-JUL-2021) Abnormal ECG When compared with ECG of 28-JUL-2022 05:01, (unconfirmed) QT has shortened Confirmed by Qasim Casillas ([id number]) on 07/28/2022 5:14:51 PM Referred By: REFERRED SELF Confirmed By:Qasim Casillas
[2022-07-29] MEDS: SODIUM CHLORIDE 0.9% 1000ML 1,000 ML IV SCH ×3 (02:59→17:32)
[2022-07-29] MEDS: HYDROCORTISONE SOD 50 MG in SYRINGE 0 ML IV SCH ×4 (02:59→20:43)
[2022-07-29] MEDS: cefTRIAXone SODIUM 2,000 MG in DEXTROSE 5% 50 ML IV SCH (07:39)
[2022-07-29] MEDS: DOCUSATE SODIUM 100 MG CAP PO SCH (09:41)
--- NOTE | 2022-07-29 09:52 | Cardiology Consultation ---
Date of Consultation July 29, 2022 Assessment & Plan (1) Ventricular bigeminy: (2) Afib: Mrs. Ford is a 77 year old female with a history of Atrial Fibrillation, Resolved Tachycardia Induced Cardiomyopathy, Systolic CHF, Mitral Regurgitation, Pulmonary Hypertension, Stage III CKD, Bronchiectasis, Lumbar Spinal Stenosis, Ambulatory Dysfunction, Hypothyroidism, Prior TIA, Chronic Facial Discoloration secondary to previous medication, and Recurrent UTI's who was admitted to [facility] on 07/28/22 with AMS, Generalized Weakness, UTI, and Metabolic Encephalopathy. Patient was brought to [facility] ER on 07/28/22 as she has had increasing confusion and weakness over the preceding week. She was found on the ground after what appeared to be sliding out of her chair at home. She lives with her son who is her primary benzol operator. Historical information was initially limited secondary to patient's altered mental status. Laboratories suggested an acute UTI. CT head and cervical spine without acute findings. Chest x-ray demonstrates no acute findings. She was treated empirically with IV Rocephin and received IV fluids which were initiated in the ER. She was noted to have an POPPY, but otherwise without other significant laboratory findings. Patient is still very confused and was unable to answer any of my questions or provide any information today. She continues to be treated for presumed E. Coli UTI. On 07/28/22 at 1621 she reportedly had a pulse rate of 36 bpm, but in reviewing her quality assurance monitor she was in rate controlled A-Fib at that time with ventricular bigeminy -- which would account for her perceived low pulse rate. She does otherwise have frequent PVC's. Her serum Digoxin level on 07/28/22 was therapeutic at 1.1 ng/mL. Her PVC's and ventricular bigeminy burden may be increased because Coreg and Diltiazem are currently on hold due to relative hypotension on admission. Recommend the followin. Continue Xarelto 15 mg daily, may need to adjust the dose as renal function improves. 2. Restart Coreg 25 mg b.i.d. when BP allows. 3. Restart Diltiazem CD 180 mg daily when BP allows. 4. Restart Digoxin 125 mcg daily as renal function improves or if V-rate increases > 100 bpm at rest. (3) Mitral regurgitation: -- Normal LV systolic function with mild MR and mild AI on Echocardiogram 01/26/2020. This is not significant. (4) Pulmonary hypertension: -- Estimated RVSP was 30 to 40 mmHg on Echocardiogram 01/25/22, likely secondary to underlying lung disease and obesity. History of Present Illness Reason for Consultation: -- Bradycardia secondary to Ventricular Bigeminy. -- A-Fib. Requesting Physician: Mo Hamilton Attending Physician: Qasim Casillas MD History of Present Illness Mrs. Ford is a 77 year old female with a history of Atrial Fibrillation, Resolved Tachycardia Induced Cardiomyopathy, Systolic CHF, Mitral Regurgitation, Pulmonary Hypertension, Stage III CKD, Bronchiectasis, Lumbar Spinal Stenosis, Ambulatory Dysfunction, Hypothyroidism, Prior TIA, Chronic Facial Discoloration secondary to previous medication, and Recurrent UTI's who was admitted to [facility] on 07/28/22 with AMS, Generalized Weakness, UTI, and Metabolic Encephalopathy. Patient was brought to [facility] ER on 07/28/22 as she has had increasing confusion and weakness over the preceding week. She was found on the ground after what appeared to be sliding out of her chair at home. She lives with her son who is her primary benzol operator. Historical information was initially limited secondary to patient's altered mental status. Laboratories suggested an acute UTI. CT head and cervical spine without acute findings. Chest x-ray demonstrates no acute findings. She was treated empirically with IV Rocephin and received IV fluids which were initiated in the ER. She was noted to have an POPPY, but otherwise without other significant laboratory findings. On 07/28/22 at 1621 she reportedly had a pulse rate of 36 bpm, but in reviewing her quality assurance monitor she was in rate controlled A-Fib at that time with ventricular bigeminy -- which would account for her perceived low pulse rate. Her serum Digoxin level on 07/28/22 was therapeutic at 1.1 ng/mL. Urine culture is growing out Cram Negative Bacilli. Patient is still very confused and was unable to answer any of my questions or provide any information today. Her eyes were closed the entire time that I was speaking with her. Patient lives with her son who is her primary benzol operator. He and his brother act as medical cm of siebel architect for their mother. Allergies Allergy/AdvReac Type Severity Reaction Status Date / Time gabapentin Allergy Unknown MULTIPLE Verified 12/15/21 18:51 REACTIONS "COULD GO ON AND ON" - SEE NOTES codeine AdvReac Intermediate SEVERE GI Verified 12/15/21 18:51 SYMPTOMS Home Medications Medication Instructions Recorded Confirmed Type levothyroxine 112 mcg tablet 112 mcg PO QAM 11/30/18 04/06/22 History (Synthroid) digoxin 125 mcg (0.125 mg) tablet 125 mcg PO PM 07/07/19 04/06/22 History (Lanoxin) diltiazem HCl 180 mg 180 mg PO QAM 12/11/19 04/06/22 History capsule,extended release 24 hr (Cartia XT) lisinopril 40 mg tablet (Zestril) 40 mg PO QAM 12/11/19 04/06/22 History carvedilol 25 mg tablet (Coreg) 25 mg PO BID 04/22/20 04/06/22 History acetaminophen 500 mg tablet 1,000 mg PO Q6 PRN Pain 04/30/21 04/06/22 History (Tylenol Extra Strength) rivaroxaban 20 mg tablet (Xarelto) 20 mg PO PM 06/03/21 04/06/22 History benzonatate 100 mg capsule 100 mg PO TID PRN Cough 06/20/21 04/06/22 History duloxetine 30 mg capsule,delayed 30 mg PO DAILY #30 caps 11/05/21 04/06/22 Rx release (Cymbalta) alprazolam 0.5 mg tablet 0.5 mg PO TID PRN Anxiety 12/15/21 04/06/22 History cyproheptadine 2 mg/5 mL oral syrup 2 mg PO DAILY PRN ALLERGIES 12/15/21 04/06/22 History dexamethasone 0.5 mg/5 mL oral 1 mg PO DAILY 12/15/21 04/06/22 History solution docusate sodium 100 mg capsule 200 mg PO DAILY 12/15/21 04/06/22 History (Colace) melatonin 1 mg tablet 1 mg PO HS PRN Sleep 12/15/21 04/06/22 History ondansetron 4 mg disintegrating 4 mg PO BID PRN nausea and vomiting 12/15/21 04/06/22 History tablet clindamycin HCl 150 mg capsule 150 mg PO QID 04/06/22 04/06/22 History furosemide 40 mg tablet 40 mg PO DAILY 04/06/22 04/06/22 History oxycodone 5 mg tablet 5 mg PO Q6H PRN Pain 04/06/22 04/06/22 History Patient History Medical History Ambulatory dysfunction LIMITED MOBILITY D/T CHRONIC WEAKNESS PER PT & SON Anxiety Atrial fibrillation DX 8 YR AGO, HX CARDIOVERSION Atrial fibrillation with RVR no pacer> follows with Dr. March > stable Cardiomyopathy CHF (congestive heart failure) Chronic fatigue syndrome Chronic pain CKD (chronic kidney disease), stage III Gallbladder problem POSSIBLE PER PT...NO MEDICAL DX OF, NO EVAL FOR GI problem "INFLAMMATION OF DIGESTIVE TRACT" - PT DENIES MEDICAL DX OF DIGESTIVE PROBLEM SUCH IBS, CHRON'S, DIVERTICULTIS,COLITIS, ETC... Headache History of anemia History of recurrent UTIs REPORTS HX BLADDER INFECTIONS - NONE CURRENT Hypothyroidism Lumbar facet joint syndrome Multinodular goiter ? HX OF Neck stiffness PT REPORTS ONGOING PROBLEM, POSTURE RELATED SOB (shortness of breath) on exertion TIA (transient ischemic attack) pt reports was stroke like symptoms but was related to being sick, not actual TIA Weakness CHRONIC Surgical History H/O breast augmentation History of colonoscopy History of laparoscopy "LASER LAPARAOSCOPIES" S/P tooth extraction HX Family History Mother , age 83 with lung cancer and COPD Lung cancer COPD (chronic obstructive pulmonary disease) Family history of diabetes mellitus Father , in 70s of bladder cancer and COPD Bladder cancer COPD (chronic obstructive pulmonary disease) Family history of diabetes mellitus Brother Family history of diabetes mellitus Other Allergies Asthma Cancer Family history of bleeding disorder Family history of colon cancer in father Hearing loss Heart disease Hypertension Denies family history of Stroke Social History Smoking Status: Never smoker Second Hand Exposure: No; Hx Alcohol Use: No Hx Substance Use: No Preferred Language: French Communication Ability: Impaired Communication Ability Comment: Cataracts Visual Impairment: No Limitations Business Risk Analyst Required: No Beliefs That Will Affect Care: None marital status: Single Current Living Situation: Family Current Living Situation Comment: lives with son current occupational status: retired and disabled How many Children do You have: 2 Other Information That Helps Us Care for You: No other: Disabled in her 50s. 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 Physical Exam Physical Exam: GENERAL: Patient lying supine in her bed, no acute distress. HEENT: Head is atraumatic, normocephalic. EOM's intact. Facies symmetric. No perioral cyanosis. Facial discoloration is preset and chronic. NECK: No JVD. JVP is not elevated. Carotid upstrokes are + 2 bilaterally without obvious bruits. CHEST/LUNGS: Clear to auscultation throughout all lung ny. No wheezes, rales, or crackles. CVS: S1 and S2 are irregularly irregular at 74 bpm with frequent ectopy. There is a grade 2/6 apical holosystolic murmur noted. No obvious diastolic murmurs. No gallops or rubs. PMI is nonpalpable. No lifts, heaves, or thrills. No abdominal aortic or renal bruits. ABDOMINAL EXAM: Bowel sounds are present. No masses, organomegaly, or tenderness. EXTREMITIES: No clubbing or cyanosis. No edema. Intact radial pulses bilaterally. NEUROLOGIC EXAM: Patient is confused, her eyes remained closed during the entire interview. DISPATCHER RELAY: -- Rate controlled A-Fib with frequent PVC's and ventricular bigeminy. EKG 07/28/22 at 1527: -- A-Fib at 69 bpm with frequent PVC's vs aberrantly conducted beats. -- Left axis deviation. -- Inferior infarct cites on or before 07/08/21; -- When compared to 07/28/22 tracing at 0501; QT has shortened. Results & Data ([facility]) Vital Signs (Past 12 Hours) Vital Signs Temp Pulse Resp BP BP Pulse Ox O2 Del Method 07/29/22 07:55 36.8 C 65 20 127/75 91 Room Air 07/29/22 03:16 36.5 C 90 18 124/65 100 Room Air 07/28/22 23:04 36.4 C L 82 20 117/60 98 Room Air Laboratory Results Laboratory Results - last 24 hr 07/28/22 07/28/22 07/28/22 10:56 10:56 11:20 ESR ABG pH ABG pCO2 ABG pO2 ABG HCO3 ABG O2 Saturation ABG Base Excess Lexa Test Carboxyhemoglobin Oxygen Given Sodium Potassium Chloride Carbon Dioxide Anion Gap BUN Creatinine Est Cr Clr Drug Dosing Est GFR ( Amer) Est GFR (Non-Af Amer) BUN/Creatinine Ratio Glucose POC Glucose Lactate Calcium Phosphorus Magnesium Total Bilirubin Direct Bilirubin AST ALT Alkaline Phosphatase Troponin I High Sens C-Reactive Protein Total Protein Albumin Procalcitonin Random Cortisol Nasal Screen MRSA (PCR) Negative Digoxin 1.1 SARS-CoV-2, RNA, NAAT NEGATIVE 07/28/22 07/28/22 07/28/22 11:20 11:20 15:36 ESR ABG pH ABG pCO2 ABG pO2 ABG HCO3 ABG O2 Saturation ABG Base Excess Lexa Test Carboxyhemoglobin Oxygen Given Sodium Potassium Chloride Carbon Dioxide Anion Gap BUN Creatinine Est Cr Clr Drug Dosing Est GFR ( Amer) Est GFR (Non-Af Amer) BUN/Creatinine Ratio Glucose POC Glucose 125 H Lactate 1.5 Calcium Phosphorus Magnesium Total Bilirubin Direct Bilirubin AST ALT Alkaline Phosphatase Troponin I High Sens C-Reactive Protein Total Protein Albumin Procalcitonin Random Cortisol 1.47 Nasal Screen MRSA (PCR) Digoxin SARS-CoV-2, RNA, NAAT 07/28/22 07/28/22 07/28/22 16:25 16:25 16:25 ESR ABG pH 7.35 ABG pCO2 39 ABG pO2 33 L ABG HCO3 22 ABG O2 Saturation < 60.0 L ABG Base Excess -3.8 Lexa Test POS Carboxyhemoglobin Oxygen Given ROOM AIR Sodium 137 Potassium 4.6 Chloride 108 H Carbon Dioxide 23 Anion Gap 6 BUN 112 H Creatinine 1.37 H D Est Cr Clr Drug Dosing 44.4 Est GFR ( Amer) 43.6 Est GFR (Non-Af Amer) 37.6 BUN/Creatinine Ratio 81.8 H Glucose 114 H POC Glucose Lactate 1.4 Calcium 9.9 Phosphorus 3.7 Magnesium 2.9 H Total Bilirubin 0.4 Direct Bilirubin 0.0 AST 12 L ALT 23 Alkaline Phosphatase 40 Troponin I High Sens 12.0 C-Reactive Protein 1.56 H Total Protein 6.7 Albumin 3.8 Procalcitonin Random Cortisol Nasal Screen MRSA (PCR) Digoxin SARS-CoV-2, RNA, NAAT 07/28/22 07/28/22 07/28/22 16:25 16:26 17:37 ESR 30 ABG pH ABG pCO2 ABG pO2 ABG HCO3 ABG O2 Saturation ABG Base Excess Lexa Test Carboxyhemoglobin 1.0 Oxygen Given Sodium Potassium Chloride Carbon Dioxide Anion Gap BUN Creatinine Est Cr Clr Drug Dosing Est GFR ( Amer) Est GFR (Non-Af Amer) BUN/Creatinine Ratio Glucose POC Glucose Lactate Calcium Phosphorus Magnesium Total Bilirubin Direct Bilirubin AST ALT Alkaline Phosphatase Troponin I High Sens C-Reactive Protein Total Protein Albumin Procalcitonin < 0.05 Random Cortisol Nasal Screen MRSA (PCR) Digoxin SARS-CoV-2, RNA, NAAT Diagnostic Findings CXR 07/28/22: No lines and tubes are seen. Cardiomegaly is noted. The aortic arch is calcified. Reticular interstitial opacities are seen. No evidence of pleural effusion or pneumothorax. IMPRESSION: -- No acute chest disease. Cardiomegaly is noted. CT SCAN HEAD 07/28/22: Areas of decreased attenuation are present in the periventricular and subcortical white matter bilaterally consistent with small vessel ischemic disease. Generalized cerebral atrophy with commensurate enlargement of the ventricles, sulci, and cisterns is also present. There is no acute intracranial hemorrhage or evidence of acute territorial infarction. No shift of the midline structures, mass effect, or extra-axial abnormalities are shown. Atherosclerotic calcifications are present in the intracranial segments of the internal carotid arteries.Imaged portions of the paranasal sinuses and mastoid air cells are clear. The orbits appear normal. There are no acute fractures of the calvaria or scalp swelling. Impression: -- No acute intracranial hemorrhage, no evidence of acute territorial infarction or other acute intracranial disease process. CT SCAN C-SPINE 07/28/22: Alignment of the cervical spine is anatomic. Vertebral body heights are maintained. No acute cervical spine fracture or subluxation is present. There is no prevertebral edema. Facet joints are intact. Multilevel degenerative changes within the cervical spine are present. Multinodular thyroid gland is incidentally noted. This is similar in appearance to CT of October 22, 2020. Right sphenoid sinus mucosal thickening is present. IMPRESSION: -- No acute cervical spine fracture or subluxation. Medications Administered Medications levothyroxine 112 mcg tablet (Synthroid) 112 mcg PO QAM 11/30/18 [History Confirmed 04/06/22] digoxin 125 mcg (0.125 mg) tablet (Lanoxin) 125 mcg PO PM 07/07/19 [History Confirmed 04/06/22] diltiazem HCl 180 mg capsule,extended release 24 hr (Cartia XT) 180 mg PO QAM 12/11/19 [History Confirmed 04/06/22] lisinopril 40 mg tablet (Zestril) 40 mg PO QAM 12/11/19 [History Confirmed 04/06/22] carvedilol 25 mg tablet (Coreg) 25 mg PO BID 04/22/20 [History Confirmed 04/06/22] acetaminophen 500 mg tablet (Tylenol Extra Strength) 1,000 mg PO Q6 PRN Pain 04/30/21 [History Confirmed 04/06/22] rivaroxaban 20 mg tablet (Xarelto) 20 mg PO PM 06/03/21 [History Confirmed 04/06/22] benzonatate 100 mg capsule 100 mg PO TID PRN Cough 06/20/21 [History Confirmed 04/06/22] duloxetine 30 mg capsule,delayed release (Cymbalta) 30 mg PO DAILY #30 caps 10/22 01/12 [Rx Confirmed 04/06/22] alprazolam 0.5 mg tablet 0.5 mg PO TID PRN Anxiety 12/15/21 [History Confirmed 04/06/22] cyproheptadine 2 mg/5 mL oral syrup 2 mg PO DAILY PRN ALLERGIES 12/15/21 [History Confirmed 04/06/22] dexamethasone 0.5 mg/5 mL oral solution 1 mg PO DAILY 12/15/21 [History Confirmed 04/06/22] docusate sodium 100 mg capsule (Colace) 200 mg PO DAILY 12/15/21 [History Confirmed 04/06/22] melatonin 1 mg tablet 1 mg PO HS PRN Sleep 12/15/21 [History Confirmed 04/06/22] ondansetron 4 mg disintegrating tablet 4 mg PO BID PRN nausea and vomiting 12/15/21 [History Confirmed 04/06/22] clindamycin HCl 150 mg capsule 150 mg PO QID 04/06/22 [History Confirmed 04/06/22] furosemide 40 mg tablet 40 mg PO DAILY 04/06/22 [History Confirmed 04/06/22] oxycodone 5 mg tablet 5 mg PO Q6H PRN Pain 04/06/22 [History Confirmed 04/06/22] Home Medications Acetaminophen (Acetaminophen 500 Mg Tab) 1,000 mg PO Q6 PRN PRN Reason: Pain Stop: 08/27/22 10:49 Docusate Sodium (Docusate Sodium 100 Mg Cap) 200 mg PO DAILY COUNTS INCLUDE 234 BEDS AT THE [facility] Stop: 08/28/22 08:59 Last Admin: 07/29/22 09:41 Dose: Not Given Sodium Chloride (Nss 1000ml) 1,000 mls @ 100 mls/hr IV .Q10H COUNTS INCLUDE 234 BEDS AT THE [facility] Stop: 08/27/22 10:29 Last Admin: 07/29/22 02:59 Dose: 100 mls/hr Ceftriaxone Sodium 2,000 mg/ (Dextrose) 70 mls @ 140 mls/hr IV Q24H JENNY Stop: 08/08/22 06:59 Last Infusion: 07/29/22 08:16 Dose: Infused Hydrocortisone Sodium (Succinate 50 mg/ Syringe) 1 mls @ 4 mls/min IV Q6H COUNTS INCLUDE 234 BEDS AT THE [facility] Stop: 07/31/22 15:29 Last Admin: 07/29/22 09:43 Dose: 4 mls/min Ondansetron HCl (Ondansetron Inj 2 Mg/Ml 2 Ml Vial) 4 mg IV Q6H PRN PRN Reason: Nausea Stop: 08/27/22 10:28 Rivaroxaban (Rivaroxaban 15 Mg Tab) 15 mg PO QDD COUNTS INCLUDE 234 BEDS AT THE [facility] Stop: 08/27/22 16:29 Last Admin: 07/28/22 17:04 Dose: Not Given PG Care Time/CCT Total # of Minutes Spent Total Time Spent with Patient: Total time spent is greater than 50% in coordination of care (as documented) at patient's floor/unit and/or counseling patient:34 [place] [address] Initial Inpt Care Lvl 2 Patient Type Established History Detailed Exam Detailed Medical Decision Making Moderate Complexity Diagnoses Ventricular bigeminy I49.8 Afib I48.91 Atrial fibrillation type: unspecified Mitral regurgitation I34.0 Pulmonary hypertension I27.20 Time Spent (min) 62 (1) Afib Atrial fibrillation type: unspecified Qualified Code(s): I48.91 - Unspecified atrial fibrillation
[2022-07-29 16:13] LABS: Hematocrit (blood only) 33.5 % (34.1-44.9); Hemoglobin 11.3 g/dl (12.0-16.0); Mean Corpuscular Hemoglobin 34.5 pg (25.0-34.0); Mean Corpuscular Hgb Conc 33.7 g/dL (32.0-36.0); Mean Corpuscular Volume 102.1 fL (80.0-100.0); Mean Platelet Volume 9.9 fL (9.4-12.3); Platelet Count 241 K/uL (130-400); RDW Coefficient of Variation 15.8 % (11.5-14.5); RDW Standard Deviation 58.6 fL (36.4-46.3); Red Blood Count 3.28 M/uL (3.93-5.22)
[2022-07-29 17:05] LABS: Albumin Level 3.7 gm/dl (3.4-5.0); Bilirubin,Total 0.5 mg/dl (0.2-1.0); C Reactive Protein 2.77 mg/dl (0-0.5); Calcium 9.5 mg/dl (8.5-10.1); Creatinine Clr Calc Pharmacy 58.1 ml/min; Est GFR (African American) 62.3 ml/min; Est GFR (Non-African American) 53.8 ml/min; Potassium 4.2 mmol/L (3.5-5.1); Total Protein 6.4 gm/dl (6.0-8.3)
[2022-07-29] MEDS: RIVAROXABAN 15 MG TAB PO SCH (17:21)
[2022-07-29] MEDS ORDERED: DEXTROSE 5% 1,000 ML IV SCH (17:30)
[2022-07-29] MEDS ORDERED: Nursing to Pharmacy Communication SCH (18:00)
[2022-07-29] MEDS: HEPARIN SOD 5,000 UNIT/0.5 ML VIAL SQ SCH (18:12)
--- NOTE | 2022-07-29 21:57 | Hospitalist Progress Note ---
Date of Service July 29, 2022 Assessment & Plan (1) Metabolic encephalopathy: Plan: Patient admitted with worsening confusion. This could be multifactorial: polypharmacy (including opioids), uremia, from POPPY, possible UTI. Medications on hold, POPPY is improving. UTI is being treated. Confusion may linger after precipitating factors have improve. (2) UTI (urinary tract infection): Plan: 77-year-old female presenting with weakness, altered mental status, found to have UTI requiring ongoing management in the setting of multiple comorbidities and need for close hemodynamic monitoring. (3) AMS (altered mental status): Plan: See above. (4) Acute kidney injury superimposed on chronic kidney disease: Plan: Ongoing gentle hydration for now. Monitor I&Os closely in the patient w/ h/o CHF (5) Chronic, continuous use of opioids: Plan: - Hold Fentanyl patch and Oxy for now. (6) Weakness: Plan: Acute on chronic. Likely 2/2 to above. (7) Hypothyroidism: Plan: TSH level wnl. Continue home Rx dosing. (8) Afib: Plan: Continue home antiarrhythmic and anticoagulation drugs Admission and Anticipated Discharge Date Admission Date: July 28, 2022 Subjective 77 yo female remains confused. Nurse reports she has repeatedly been throwing her (hard) stools from her bed into the cat. Review of Systems Review of Systems: All systems reviewed & are unremarkable except as noted in HPI & below Physical Exam Physical Exam: GENERAL - 77-year-old female appearing her stated age who is in no acute distress. SKIN - jordan discoloring of her face. HEAD - NC/AT. EYES - PERRL with EOMI bilaterally. Sclera anicteric. EARS - No deformities of external structures noted on gross examination bilaterally. NOSE - Midline and without cyanosis. No epistaxis or purulent drainage noted. MOUTH/OROPHARYNX - Without perioral cyanosis. Buccal mucosa pink and dry. NECK - No nuchal rigidity. LUNGS - Chest wall symmetric without accessory muscle use, intercostals retractions, or central cyanosis.cardiac: normal HR on monitor ABDOMEN - Abdominal contour obese without pulsations or visible masses. No tenderness EXTREMITIES - No clubbing or peripheral cyanosis. NEUROLOGIC -Unable to perform full exam secondary to AMS. Results & Data Results & Data ([facility]) Vital Signs (Past 12 Hours) Vital Signs Temp Pulse Pulse Resp BP BP Pulse Ox 07/29/22 19:32 36.4 C 75 20 109/64 98 07/29/22 16:51 94 H 07/29/22 16:07 36.9 C 83 22 134/68 92 07/29/22 12:12 79 07/29/22 12:07 37.0 C 81 18 120/54 L 92 07/29/22 10:31 Pulse Ox O2 Del Method O2 Del Method 07/29/22 19:32 Room Air 07/29/22 16:51 07/29/22 16:07 Room Air 07/29/22 12:12 07/29/22 12:07 Room Air 07/29/22 10:31 99 Room Air PG Care Time/CCT Total # of Minutes Spent Total Time Spent with Patient: Total time spent is greater than 50% in coordination of care (as documented) at patient's floor/unit and/or counseling patient: Coding Level of Care Code 69074 Subseq Hosp Care Lvl 3 Diagnoses Metabolic encephalopathy G93.41 UTI (urinary tract infection) N39.0
[2022-07-29] MEDS ORDERED: HEPARIN SOD 5,000 UNIT/0.5 ML VIAL SQ SCH (22:00)
[2022-07-30] MEDS: HYDROCORTISONE SOD 50 MG in SYRINGE 0 ML IV SCH ×3 (04:20→14:01)
[2022-07-30] MEDS: HEPARIN SOD 5,000 UNIT/0.5 ML VIAL SQ SCH ×2 (05:48→13:18)
[2022-07-30 06:26] LABS: Hematocrit (blood only) 32.7 % (34.1-44.9); Mean Corpuscular Hemoglobin 34.2 pg (25.0-34.0); Mean Corpuscular Hgb Conc 33.6 g/dL (32.0-36.0); Mean Corpuscular Volume 101.6 fL (80.0-100.0); Mean Platelet Volume 10.2 fL (9.4-12.3); Nucleated RBC # (auto) 0.03 K/uL (0-0); Nucleated RBC % (auto) 0.3 %; Platelet Count 244 K/uL (130-400); RDW Coefficient of Variation 15.9 % (11.5-14.5); RDW Standard Deviation 59.1 fL (36.4-46.3); Red Blood Count 3.22 M/uL (3.93-5.22)
[2022-07-30] MEDS: cefTRIAXone SODIUM 2,000 MG in DEXTROSE 5% 50 ML IV SCH (06:32)
[2022-07-30 06:57] LABS: BUN Creatinine Ratio 38.6 (10-20); Calcium 9.6 mg/dl (8.5-10.1); Creatinine Clr Calc Pharmacy 57.9 ml/min; Est GFR (African American) 63.1 ml/min; Est GFR (Non-African American) 54.4 ml/min; Potassium 4.1 mmol/L (3.5-5.1)
[2022-07-30] MEDS: DOCUSATE SODIUM 100 MG CAP PO SCH (08:38)
[2022-07-30] MEDS: ACETAMINOPHEN 500 MG TAB PO PRN (14:26)
[2022-07-30] MEDS ORDERED: LEVOTHYROXINE SODIUM 112 MCG TABLET PO SCH (15:45)
--- NOTE | 2022-07-30 16:32 | XRay Report ---
XR KUB/Abdomen 1 view CLINICAL HISTORY: constipation TECHNIQUE: 1 view of the abdomen was obtained. Comparison: Comparison is made to abdomen radiograph 07/11/2022 FINDINGS: Lung bases are unremarkable. The osseous structures are grossly unremarkable. The bowel gas pattern i s nonobstructive. A moderate amount of stool is noted within the large bowel. IMPRESSION: No acute abnormalities and in particular no evidence of fecal impaction in the rectum. ACT 112: Negative or not required by law. Electronically signed by: Raffi Kauffman M.D. 07/30/2022 4:31 PM
[2022-07-30] MEDS: DEXTROSE 5% 1,000 ML IV SCH (17:58)
[2022-07-30] MEDS: RIVAROXABAN 15 MG TAB PO SCH (17:58)
[2022-07-30] MEDS: LEVOTHYROXINE SODIUM 112 MCG TABLET PO SCH (17:58)
[2022-07-30] MEDS: oxyCODONE HCL IR 5 MG TAB (IMMEDIATE RELEASE) PO PRN (19:30)
--- NOTE | 2022-07-30 21:22 | Hospitalist Progress Note ---
Date of Service July 30, 2022 Assessment & Plan (1) Metabolic encephalopathy: Plan: Patient admitted with worsening confusion. This could be multifactorial: polypharmacy (including opioids), uremia, from POPPY, possible UTI. Medications on hold, POPPY is improving. UTI is being treated with ceftriaxone, Confusion may linger after precipitating factors have improve. She is showing improvement on 07/30, will resume an oral diet today. resume her chronic pain medications. (2) UTI (urinary tract infection): Plan: 77-year-old female presenting with weakness, altered mental status, found to have UTI requiring ongoing management in the setting of multiple comorbidities and need for close hemodynamic monitoring. (3) AMS (altered mental status): Plan: See above. (4) Acute kidney injury superimposed on chronic kidney disease: Plan: Ongoing gentle hydration for now. Monitor I&Os closely in the patient w/ h/o CHF (5) Chronic, continuous use of opioids: Plan: - Hold Fentanyl patch and Oxy for now. (6) Weakness: Plan: Acute on chronic. Likely 2/2 to above. (7) Hypothyroidism: Plan: TSH level wnl. Continue home Rx dosing. (8) Afib: Plan: Continue home antiarrhythmic and anticoagulation drugs Admission and Anticipated Discharge Date Admission Date: July 28, 2022 Subjective 77 yo female is more awake today. Able to asnwer questions, she knows where the year. Her son is at bedside, and he states she usually is confused at baseline, but not where she was on admission. She is close to her baseline now, but is able to ambulate and go to the bathroom, which she has not been doing today. She has been having hard stools today. Review of Systems Review of Systems: All systems reviewed & are unremarkable except as noted in HPI & below Physical Exam Physical Exam: GENERAL - 77-year-old female appearing her stated age who is in no acute distress. SKIN - jordan discoloring of her face. HEAD - NC/AT. EYES - PERRL with EOMI bilaterally. Sclera anicteric. EARS - No deformities of external structures noted on gross examination bilaterally. NOSE - Midline and without cyanosis. No epistaxis or purulent drainage noted. MOUTH/OROPHARYNX - Without perioral cyanosis. Buccal mucosa pink and dry. NECK - No nuchal rigidity. CARDIAC: RRR LUNGS - Chest wall symmetric without accessory muscle use, intercostals retractions, or central cyanosis.cardiac: normal HR on monitor ABDOMEN - Abdominal contour obese without pulsations or visible masses. No tenderness EXTREMITIES - No clubbing or peripheral cyanosis. NEUROLOGIC -Unable to perform full exam secondary to AMS. Results & Data Results & Data ([facility]) Vital Signs (Past 12 Hours) Vital Signs Temp Pulse Resp BP BP Pulse Ox O2 Del Method 07/30/22 19:40 36.5 C 85 20 133/83 100 Room Air 07/30/22 15:33 36.8 C 91 H 16 126/62 100 Room Air 07/30/22 11:19 36.7 C 92 H 17 123/80 97 Room Air PG Care Time/CCT Total # of Minutes Spent Total Time Spent with Patient: Total time spent is greater than 50% in coordination of care (as documented) at patient's floor/unit and/or counseling patient: Coding Level of Care Code 04183 Subseq Hosp Care Lvl 2 Diagnoses Metabolic encephalopathy G93.41 UTI (urinary tract infection) N39.0 Time Spent (min) 25
[2022-07-31] MEDS: ALPRAZolam 0.5 MG TABLET PO PRN ×3 (00:18→17:33)
[2022-07-31] MEDS: oxyCODONE HCL IR 5 MG TAB (IMMEDIATE RELEASE) PO PRN ×3 (02:59→17:33)
[2022-07-31] MEDS: LEVOTHYROXINE SODIUM 112 MCG TABLET PO SCH ×2 (05:30→05:33)
[2022-07-31] MEDS: DEXTROSE 5% 1,000 ML IV SCH (05:30)
[2022-07-31] MEDS: cefTRIAXone SODIUM 2,000 MG in DEXTROSE 5% 50 ML IV SCH (06:00)
[2022-07-31] MEDS ORDERED: GLYCERIN ADULT 12 SUPP/BOX SUPP PR ONE (06:38)
[2022-07-31] MEDS: POLYETHYLENE (MIRALAX) 17 GM PACK PO SCH (07:55)
[2022-07-31] MEDS: DOCUSATE SODIUM 100 MG CAP PO SCH (07:57)
[2022-07-31 08:52] LABS: Hematocrit (blood only) 31.9 % (34.1-44.9); Hemoglobin 10.7 g/dl (12.0-16.0); Mean Corpuscular Hgb Conc 33.5 g/dL (32.0-36.0); Mean Corpuscular Volume 101.3 fL (80.0-100.0); Mean Platelet Volume 10.2 fL (9.4-12.3); Nucleated RBC # (auto) 0.06 K/uL (0-0); Nucleated RBC % (auto) 0.6 %; Platelet Count 221 K/uL (130-400); RDW Standard Deviation 59.6 fL (36.4-46.3); Red Blood Count 3.15 M/uL (3.93-5.22); White Blood Count 10.77 K/ul (4.8-10.8)
[2022-07-31] MEDS ORDERED: HYDROCORTISONE SOD 50 MG in SYRINGE 0 ML IV SCH (09:00)
[2022-07-31 09:28] LABS: BUN Creatinine Ratio 32.7 (10-20); Calcium 9.3 mg/dl (8.5-10.1); Est GFR (African American) 65.4 ml/min; Est GFR (Non-African American) 56.4 ml/min; Potassium 3.9 mmol/L (3.5-5.1)
--- NOTE | 2022-07-31 14:50 | Hospitalist Progress Note ---
Date of Service July 31, 2022 Assessment & Plan (1) Metabolic encephalopathy: Plan: Patient admitted with worsening confusion on baseline cognitive impairmentI was unable to speak with the son today.. This could be multifactorial: polypharmacy (including opioids), uremia, from POPPY, possible UTI. Medications on hold, POPPY is improving. UTI is being treated with ceftriaxone, Confusion may linger after precipitating factors have improve. She is showing improvement 07/31-started regular diet today resume her chronic pain medications. (2) UTI (urinary tract infection): Plan: 77-year-old female presenting with weakness, altered mental status, found to have UTI requiring ongoing management in the setting of multiple comorbidities and need for close hemodynamic monitoring. (3) AMS (altered mental status): Plan: See above. (4) Acute kidney injury superimposed on chronic kidney disease: Plan: Resolvedcreatinine under 1 today (5) Chronic, continuous use of opioids: Plan: Complained of pain and got Oxycodone today am 07/31 Fentanyl patch being held uncertain where the pain is but it is chronic per chart (6) Weakness: Plan: Acute on chronic. Likely 2/2 to above. (7) Hypothyroidism: Plan: TSH level wnl. Continue home Rx dosing. (8) Afib: It is rate controlled Plan: Continue home antiarrhythmic and anticoagulation drugs (3) Anxiety: Plan: Alprazolam as needed (4) Macrocytic anemia: Plan: Recent macrocytosis during this hospitalizationcheck B12 and folate if not done (5) Hypernatremia: Plan: Sodium has come down from 1 48 to 1 46. Keep D5W going at 50 cc an hour and ordered given to encourage oral fluids. (6) Chronic systolic CHF (congestive heart failure): Plan: Appreciate cardiology input. 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 Plan Delirium persists, advance to regular diet, get PT evaluation when mental status improves. Will try to discuss this " conditional code" with her son tomorrow 08/01. Will assess overall recent clinical status to possibly consider home hospice. Audibly wheezing todaynot hypoxic. Treat with HFA's if follows commands Admission and Anticipated Discharge Date Admission Date: July 28, 2022 Subjective seen at 1415 h Does not talk- asleep but awakens to answer a couple of questions. ROS not possible Per RN, wanted to get out of bed and was confused. Still confused. is able to go with minimal assist to the bedside commode. Son feels she is better mental status becerril today. Unsure of son was here today. Ate 25 to 30% for lunch but is on clear liquids. Physical Exam Physical Exam: 1420 h today Obese pleasant lady sitting up in bed and mostly somnolent, arousable by verbal stimuli and tells me her first name correctly, tells me she is in a supermarket and when asked the month asks if it is [place] Head and neck dry tongue, prominent pigmentation of the cheeks and forehead, darker pigmentation of the nose, upper lip and chin, anicteric sclerae Chest clear to auscultation although audibly wheezing CVS S1-S2 irregular, on telemetry atrial fibrillation at 97/min Abdomen distended tenderness without guarding, Sheridan catheter in place with brownish-yellow urine 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 as above, does not follow commands to check power Extremities scattered petechiae over the lower half of the shins, erythema bilaterally lower pretibial area extending to the feet dorsa Results & Data Results & Data ([facility]) Vital Signs (Past 12 Hours) Vital Signs Temp Pulse Pulse Resp BP Pulse Ox O2 Del Method 07/31/22 10:23 36.9 C 87 22 135/82 98 Room Air 07/31/22 07:39 36.8 C 84 18 122/49 L 98 Room Air 07/31/22 07:35 Room Air 07/31/22 07:14 92 H 07/31/22 04:14 36.8 C 81 20 130/84 99 Room Air Laboratory Results Abnormal lab results 07/31/22 07/31/22 Range/Units 08:13 08:13 RBC 3.15 L (3.93-5.22) M/uL Hgb 10.7 L (12.0-16.0) g/dl Hct 31.9 L (34.1-44.9) % MCV 101.3 H (80.0-100.0) fL RDW Std Deviation 59.6 H (36.4-46.3) fL RDW Coeff of [place] 16.0 H (11.5-14.5) % Absolute Nucleated RBC 0.06 H (0-0) K/uL Chloride 115 H (98-107) mmol/L BUN 32 H (6-23) mg/dl BUN/Creatinine Ratio 32.7 H (10-20) Glucose 138 H (70-99(Fasting)) mg/dl Medications Administered Home Medications Medication Instructions Recorded Confirmed Last Taken levothyroxine 112 mcg tablet 112 mcg PO QAM 11/30/18 04/06/22 04/05/22 (Synthroid) digoxin 125 mcg (0.125 mg) tablet 125 mcg PO PM 07/07/19 04/06/22 04/05/22 (Lanoxin) diltiazem HCl 180 mg 180 mg PO QAM 12/11/19 04/06/22 04/05/22 capsule,extended release 24 hr (Cartia XT) lisinopril 40 mg tablet (Zestril) 40 mg PO QAM 12/11/19 04/06/22 04/05/22 carvedilol 25 mg tablet (Coreg) 25 mg PO BID 04/22/20 04/06/22 04/05/22 acetaminophen 500 mg tablet 1,000 mg PO Q6 PRN Pain 04/30/21 04/06/22 10/23/21 (Tylenol Extra Strength) rivaroxaban 20 mg tablet (Xarelto) 20 mg PO PM 06/03/21 04/06/22 04/05/22 benzonatate 100 mg capsule 100 mg PO TID PRN Cough 06/20/21 04/06/22 10/23/21 duloxetine 30 mg capsule,delayed 30 mg PO DAILY #30 caps 11/05/21 04/06/22 04/05/22 release (Cymbalta) alprazolam 0.5 mg tablet 0.5 mg PO TID PRN Anxiety 12/15/21 04/06/22 04/05/22 cyproheptadine 2 mg/5 mL oral syrup 2 mg PO DAILY PRN ALLERGIES 12/15/21 04/06/22 Unknown dexamethasone 0.5 mg/5 mL oral 1 mg PO DAILY 12/15/21 04/06/22 04/05/22 solution docusate sodium 100 mg capsule 200 mg PO DAILY 12/15/21 04/06/22 04/05/22 (Colace) melatonin 1 mg tablet 1 mg PO HS PRN Sleep 12/15/21 04/06/22 Unknown ondansetron 4 mg disintegrating 4 mg PO BID PRN nausea and vomiting 12/15/21 04/06/22 Unknown tablet clindamycin HCl 150 mg capsule 150 mg PO QID 04/06/22 04/06/22 04/05/22 furosemide 40 mg tablet 40 mg PO DAILY 04/06/22 04/06/22 04/05/22 oxycodone 5 mg tablet 5 mg PO Q6H PRN Pain 04/06/22 04/06/22 Unknown Active Medications Generic Name Dose Route Start Last Admin Trade Name Freq PRN Reason Stop Dose Admin Acetaminophen 1,000 mg 07/28/22 10:50 07/30/22 14:26 Acetaminophen 500 Mg Tab PO 08/27/22 10:49 1,000 mg Q6 PRN Administration Pain Alprazolam 0.5 mg 07/30/22 15:34 07/31/22 11:23 Alprazolam 0.5 Mg Tablet PO 08/29/22 15:33 0.5 mg TID PRN Administration Anxiety Docusate Sodium 200 mg 07/29/22 09:00 07/31/22 07:57 Docusate Sodium 100 Mg Cap PO 08/28/22 08:59 200 mg DAILY JENNY Administration Ceftriaxone Sodium 2,000 mg/ 70 mls @ 140 mls/hr 07/29/22 07:00 07/31/22 06:31 Dextrose IV 08/08/22 06:59 Infused Q24H JENNY Infusion Dextrose 1,000 mls @ 80 mls/hr 07/30/22 15:30 07/31/22 05:30 D5w IV 07/31/22 16:29 80 mls/hr .[id number] JENNY Administration Levothyroxine Sodium 112 mcg 07/30/22 16:30 07/31/22 05:33 Levothyroxine Sodium 112 Mcg Tablet PO 08/29/22 15:44 Not Given DAILYBB JENNY Oxycodone HCl 5 mg 07/30/22 15:34 07/31/22 11:23 Oxycodone Hcl Ir 5 Mg Tab (Immediate Release) PO 08/13/22 15:33 5 mg Q6H PRN Administration Pain Polyethylene Glycol 17 gm 07/31/22 09:00 07/31/22 07:55 Polyethylene (Miralax) 17 Gm Pack PO 08/30/22 08:59 17 gm DAILY JENNY Administration PG Care Time/CCT Total # of Minutes Spent Total Time Spent with Patient: Total time spent is greater than 50% in coordination of care (as documented) at patient's floor/unit and/or counseling patient: Coding Level of Care Code 05450 Subseq Hosp Care Lvl 3 Diagnoses Metabolic encephalopathy G93.41 UTI (urinary tract infection) N39.0 Anxiety F41.9 Macrocytic anemia D53.9 Hypernatremia E87.0 Chronic systolic CHF (congestive heart failure) I50.22
[2022-07-31] MEDS: RIVAROXABAN 20 MG TAB PO SCH (17:01)
[2022-07-31] MEDS: ACETAMINOPHEN 500 MG TAB PO PRN (21:04)
[2022-08-01] MEDS: oxyCODONE HCL IR 5 MG TAB (IMMEDIATE RELEASE) PO PRN ×5 (01:41→22:00)
[2022-08-01] MEDS: ACETAMINOPHEN 500 MG TAB PO PRN ×2 (04:15→11:31)
[2022-08-01] MEDS: LEVOTHYROXINE SODIUM 112 MCG TABLET PO SCH (05:35)
[2022-08-01] MEDS: cefTRIAXone SODIUM 2,000 MG in DEXTROSE 5% 50 ML IV SCH (06:28)
[2022-08-01 06:50] LABS: BUN Creatinine Ratio 27.9 (10-20); Creatinine Clr Calc Pharmacy 68.6 ml/min; Est GFR (African American) 76.6 ml/min; Est GFR (Non-African American) 66.1 ml/min; Potassium 3.9 mmol/L (3.5-5.1)
[2022-08-01] MEDS: POLYETHYLENE (MIRALAX) 17 GM PACK PO SCH (08:23)
[2022-08-01] MEDS: DOCUSATE SODIUM 100 MG CAP PO SCH (08:25)
[2022-08-01] MEDS: ALPRAZolam 0.5 MG TABLET PO PRN ×2 (11:41→20:43)
[2022-08-01] MEDS: RIVAROXABAN 20 MG TAB PO SCH (15:34)
--- NOTE | 2022-08-01 19:30 | Hospitalist Progress Note ---
Date of Service August 01, 2022 Assessment & Plan (1) Metabolic encephalopathy: Plan: Patient admitted with worsening confusion on baseline cognitive impairmentI was unable to speak with the son today.. This could be multifactorial: Most likely from UTI. Proteus UTIceftriaxone stopped today08/01 Start ciprofloxacin (2) UTI (urinary tract infection): Plan: 77-year-old female presenting with weakness, altered mental status, found to have UTI requiring ongoing management in the setting of multiple comorbidities and need for close hemodynamic monitoring. (3) AMS (altered mental status): Plan: See above. (4) Acute kidney injury superimposed on chronic kidney disease: Plan: Now resolved but still quite dry oral mucosa, drinking a lot of water Resolvedcreatinine under 1 today (5) Chronic, continuous use of opioids: Plan: Complained of pain and got Oxycodone today am 128 Fentanyl patch being held uncertain where the pain is but it is chronic per chart (6) Weakness: Plan: Acute on chronic. Likely 2/2 to above. (7) Hypothyroidism: Plan: TSH level wnl. Continue home Rx dosing. (8) Afib: It is rate controlled Plan: Continue home antiarrhythmic and anticoagulation drugs (3) Anxiety: Plan: Alprazolam as needed (4) Macrocytic anemia: Plan: Recent macrocytosis during this hospitalizationcheck B12 and folate 12/10 am labs (5) Hypernatremia: Plan: Sodium has come down from 1 48 to 1 46, now normal. Stop IV fluids. Drinking adequately. (6) Chronic systolic CHF (congestive heart failure): Plan: Appreciate cardiology input. 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 Plan Delirium has resolved. Patient has baseline cognitive impairment. Son visits or talks to her daily -PT and OT evaluation pendingpatient declined today. Will trial probably needs prison facility for rehab The 2 times I saw her today, CHIEF complaint was knee pain. Start Voltaren gel which she is asked for from the nurse. Apparently is on fentanyl at home but home meds are not available. Requested nursing to get her home med list from pharmacy Plan to discuss this additional code with family tomorrow if they are available or will call them. Admission and Anticipated Discharge Date Admission Date: July 28, 2022 Subjective seen at 330 pm and then again at 6pm Has been alert and oriented at this morning. Asking me for pain medicine for left knee Pain. Repeats twice that this is 13/10 intensity pain states she has had left knee pain for about a year. Is apparently on a fentanyl patch at home but its not in her home med list which is as yet not reconciled and is unconfirm ed. Denied any dysuria. Says she has had abdominal pain for a year. Had a bowel movement today. Is very hard of hearing. Also says she cannot see because of cataracts Drinking a lot of water Admits to memory problems for a long time Sheridan catheter removed this morning and is urinating fine Declined physical therapy Physical Exam Physical Exam: Alert and obese, moderate hearing loss, able to tell me she is in hospital but cannot name the town, knows this is July but this also waxes and [id number] not tell the correct month to the nurse earlier), says she ate well today Audible wheezing upper airways but clear to auscultation chest Head and neck dry oral mucosa Prominent hyperpigmentation of lateral aspect of both cheeks and most prominent over the forehead nose upper lip and chin Anicteric sclerae Extremities petechial rash lower legs, trace edema 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 and 5/5 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 toes b/l Results & Data Results & Data ([facility]) Vital Signs (Past 12 Hours) Vital Signs Temp Pulse Pulse Resp BP Pulse Ox O2 Del Method 08/01/22 16:15 36.3 C L 80 19 128/73 96 Room Air 08/01/22 15:21 80 08/01/22 11:46 36.4 C L 96 H 24 126/63 96 Nasal Cannula 08/01/22 10:05 Room Air 08/01/22 08:22 36.6 C 82 18 145/82 H 98 Nasal Cannula O2 Flow Rate 08/01/22 16:15 08/01/22 15:21 08/01/22 11:46 2 08/01/22 10:05 08/01/22 08:22 2.0 Laboratory Results Abnormal lab results 08/01/22 Range/Units 05:52 Chloride 114 H (98-107) mmol/L BUN 24 H (6-23) mg/dl BUN/Creatinine Ratio 27.9 H (10-20) Glucose 107 H (70-99(Fasting)) mg/dl Proteus UTI sensitive to quinolones Medications Administered Home Medications Medication Instructions Recorded Confirmed Last Taken levothyroxine 112 mcg tablet 112 mcg PO QAM 11/30/18 04/06/22 04/05/22 (Synthroid) digoxin 125 mcg (0.125 mg) tablet 125 mcg PO PM 07/07/19 04/06/22 04/05/22 (Lanoxin) diltiazem HCl 180 mg 180 mg PO QAM 12/11/19 04/06/22 04/05/22 capsule,extended release 24 hr (Cartia XT) lisinopril 40 mg tablet (Zestril) 40 mg PO QAM 12/11/19 04/06/22 04/05/22 carvedilol 25 mg tablet (Coreg) 25 mg PO BID 04/22/20 04/06/22 04/05/22 acetaminophen 500 mg tablet 1,000 mg PO Q6 PRN Pain 04/30/21 04/06/22 10/23/21 (Tylenol Extra Strength) rivaroxaban 20 mg tablet (Xarelto) 20 mg PO PM 06/03/21 04/06/22 04/05/22 benzonatate 100 mg capsule 100 mg PO TID PRN Cough 06/20/21 04/06/22 10/23/21 duloxetine 30 mg capsule,delayed 30 mg PO DAILY #30 caps 11/05/21 04/06/22 04/05/22 release (Cymbalta) alprazolam 0.5 mg tablet 0.5 mg PO TID PRN Anxiety 12/15/21 04/06/22 04/05/22 cyproheptadine 2 mg/5 mL oral syrup 2 mg PO DAILY PRN ALLERGIES 12/15/21 04/06/22 Unknown dexamethasone 0.5 mg/5 mL oral 1 mg PO DAILY 12/15/21 04/06/22 04/05/22 solution docusate sodium 100 mg capsule 200 mg PO DAILY 12/15/21 04/06/22 04/05/22 (Colace) melatonin 1 mg tablet 1 mg PO HS PRN Sleep 12/15/21 04/06/22 Unknown ondansetron 4 mg disintegrating 4 mg PO BID PRN nausea and vomiting 12/15/21 04/06/22 Unknown tablet clindamycin HCl 150 mg capsule 150 mg PO QID 04/06/22 04/06/22 04/05/22 furosemide 40 mg tablet 40 mg PO DAILY 04/06/22 04/06/22 04/05/22 oxycodone 5 mg tablet 5 mg PO Q6H PRN Pain 04/06/22 04/06/22 Unknown Active Medications Generic Name Dose Route Start Last Admin Trade Name Freq PRN Reason Stop Dose Admin Acetaminophen 1,000 mg 07/28/22 10:50 08/01/22 11:31 Acetaminophen 500 Mg Tab PO 08/27/22 10:49 1,000 mg Q6 PRN Administration Pain Alprazolam 0.5 mg 07/30/22 15:34 08/01/22 11:41 Alprazolam 0.5 Mg Tablet PO 08/29/22 15:33 0.5 mg TID PRN Administration Anxiety Docusate Sodium 200 mg 07/29/22 09:00 08/01/22 08:25 Docusate Sodium 100 Mg Cap PO 08/28/22 08:59 200 mg DAILY JENNY Administration Levothyroxine Sodium 112 mcg 07/30/22 16:30 08/01/22 05:35 Levothyroxine Sodium 112 Mcg Tablet PO 08/29/22 15:44 112 mcg DAILYBB JENNY Administration Oxycodone HCl 5 mg 07/30/22 15:34 08/01/22 15:34 Oxycodone Hcl Ir 5 Mg Tab (Immediate Release) PO 08/13/22 15:33 5 mg Q6H PRN Administration Pain Polyethylene Glycol 17 gm 07/31/22 09:00 08/01/22 08:23 Polyethylene (Miralax) 17 Gm Pack PO 08/30/22 08:59 17 gm DAILY JENNY Administration Rivaroxaban 20 mg 07/31/22 16:30 08/01/22 15:34 Rivaroxaban 20 Mg Tab PO 08/30/22 16:29 20 mg QDD JENNY Administration PG Care Time/CCT Total # of Minutes Spent Total Time Spent with Patient: Total time spent is greater than 50% in coordination of care (as documented) at patient's floor/unit and/or counseling patient: Coding Level of Care Code 71508 Subseq Hosp Care Lvl 3 Diagnoses Metabolic encephalopathy G93.41 UTI (urinary tract infection) N39.0 Anxiety F41.9 Macrocytic anemia D53.9 Hypernatremia E87.0 Chronic systolic CHF (congestive heart failure) I50.22
[2022-08-01] MEDS: CIPROFLOXACIN 250 MG TAB PO SCH (20:43)
[2022-08-02] MEDS: ALPRAZolam 0.5 MG TABLET PO PRN ×3 (00:42→20:39)
[2022-08-02] MEDS: LEVOTHYROXINE SODIUM 112 MCG TABLET PO SCH (05:54)
[2022-08-02 06:11] LABS: BUN Creatinine Ratio 24.1 (10-20); Calcium 8.5 mg/dl (8.5-10.1); Creatinine Clr Calc Pharmacy 67.9 ml/min; Est GFR (African American) 75.5 ml/min; Est GFR (Non-African American) 65.2 ml/min; Potassium 4.1 mmol/L (3.5-5.1)
[2022-08-02] MEDS: DOCUSATE SODIUM 100 MG CAP PO SCH (09:02)
[2022-08-02] MEDS: CIPROFLOXACIN 250 MG TAB PO SCH ×2 (09:02→20:39)
[2022-08-02] MEDS: DICLOFENAC SOD 1% GEL 100 GM TUBE EXT SCH ×3 (09:02→15:02)
[2022-08-02] MEDS: POLYETHYLENE (MIRALAX) 17 GM PACK PO SCH (09:02)
[2022-08-02 09:44] LABS: Base Excess ABG -1.5 mEq/L (-9-1.8); HCO3 ABG 21 mmol/L (19-24); Oxygen Saturation ABG 93.4 % (90-95); PCO2 ABG 30 mmHg (35-46); PO2 ABG 62 mmHg (80-95); pH ABG 7.46 (7.35-7.45)
[2022-08-02 09:45] LABS: Allen Test POS (Pos)
[2022-08-02] MEDS ORDERED: LORazepam 0.25 MG in SYRINGE 0 ML IV STA (11:24)
[2022-08-02 11:49] LABS: Basophils # (auto) 0.04 K/uL (0-0.2); Basophils % (auto) 0.5 %; Eosinophils # (auto) 0.13 K/uL (0-0.50); Eosinophils % (auto) 1.6 %; Hematocrit (blood only) 30.5 % (34.1-44.9); Hemoglobin 9.9 g/dl (12.0-16.0); Immature Granulocytes % (auto) 1.2 %; Lymphocytes % (auto) 13.2 %; Mean Corpuscular Hemoglobin 33.4 pg (25.0-34.0); Mean Corpuscular Hgb Conc 32.5 g/dL (32.0-36.0); Mean Platelet Volume 10.4 fL (9.4-12.3); Monocytes # (auto) 1.11 K/uL (0.24-0.82); Monocytes % (auto) 13.4 %; Neutrophils # (auto) 5.83 K/uL (1.4-6.5); Neutrophils % (auto) 70.1 %; Nucleated RBC # (auto) 0.03 K/uL (0-0); Nucleated RBC % (auto) 0.4 %; Platelet Count 198 K/uL (130-400); RDW Coefficient of Variation 15.7 % (11.5-14.5); RDW Standard Deviation 58.7 fL (36.4-46.3); Red Blood Count 2.96 M/uL (3.93-5.22); White Blood Count 8.31 K/ul (4.8-10.8)
[2022-08-02 12:07] LABS: Albumin Globulin Ratio 1.3 (0.9-2); Albumin Level 3.4 gm/dl (3.4-5.0); BUN Creatinine Ratio 23.7 (10-20); Bilirubin,Total 0.9 mg/dl (0.2-1.0); Calcium 8.5 mg/dl (8.5-10.1); Creatinine Clr Calc Pharmacy 77.7 ml/min; Est GFR (African American) 88.9 ml/min; Est GFR (Non-African American) 76.7 ml/min; Globulin 2.7 gm/dl (2.5-4.0); Magnesium 2.2 mg/dl (1.7-2.4); Phosphorus 2.7 mg/dl (2.5-4.9); Potassium 4.1 mmol/L (3.5-5.1); Total Protein 6.1 gm/dl (6.0-8.3)
[2022-08-02] MEDS: oxyCODONE HCL IR 5 MG TAB (IMMEDIATE RELEASE) PO PRN ×2 (12:12→20:39)
--- NOTE | 2022-08-02 12:25 | Hospitalist Progress Note ---
Date of Service August 02, 2022 Assessment & Plan (1) Metabolic encephalopathy: Plan: resolved- now severe anxiety/ psychosis Patient admitted with worsening confusion on baseline cognitive impairmentwhich was attributed to UTI and resolving until yesterday 08/01 when she was stressed out according to her son. But interactive and getting closer to baseline cognition. Visited her twice 08/01 in the afternoon and she kept complaining of pain in the left knee and occasionally abdominal. However she was interactive. This morning somnolent Abdominal breathing noted Respiratory alkalosis on ABGs. Labs normal (2) UTI (urinary tract infection): Plan: 77-year-old female presenting with weakness, altered mental status, found to have UTI requiring ongoing management in the setting of multiple comorbidities and need for close hemodynamic monitoring. (3) AMS (altered mental status): Plan: See above. (4) Acute kidney injury superimposed on chronic kidney disease: Plan: Now resolved but still quite dry oral mucosa, drinking a lot of water Resolvedcreatinine under 1 today (5) Chronic, continuous use of opioids: Plan: Complained of pain and got Oxycodone today am 07/31 Fentanyl patch being held uncertain where the pain is but it is chronic per chart (6) Weakness: Plan: Acute on chronic. Likely 2/2 to above. (7) Hypothyroidism: Plan: TSH level wnl. Continue home Rx dosing. (8) Afib: It is rate controlled Plan: Continue home antiarrhythmic and anticoagulation drugs (3) Anxiety: Plan: Alprazolam as needed 1120 H 08/02 ordered Ativan 0.25 mg IV as she does appear anxious and is hyperventilating as well as tachycardic. (4) Macrocytic anemia: Plan: Recent macrocytosis during this [id number] AND folate 12 (5) Hypernatremia: Plan: Sodium has come down from 1 48 to 1 46, now normal. Normal basic metabolic panel twice08/02 . (6) Chronic systolic CHF (congestive heart failure): Plan: Stable. Appreciate cardiology input. 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 (7) Afib: Plan: RATE CONTROLLED, xareto Digoxin, diltiazem (8) Urine retention: Plan: Likely oxycodone related. Got last dose last night. (9) Hypothyroidism: Plan: SynthroidTSH 0.6 on admission. Plan Delirium had resolved. Patient has baseline cognitive impairment. Today appears quite anxious. I spoke with son Josue -patient had hallucinations from January to March and was hospitalized 4 weeks in [place], [place], which has closed 1 month ago per nursing. Her PCP tried to obtain records from that hospital without success 2 months ago. She was started there onEnvega per son He is not aware of what diagnosis was made she has a longstanding history of anxiety. He was not able to get her in with [facility] psychiatry because of some age limit and lack of geriatric psychiatrists in the area. Josue reports that the patient fixates on some things and then spirals out of control as far as anxiety and this is ongoing for some years. She lives with Josue. At this time her abdominal breathing and tachycardia seem related to anxiety/psychosis and I have consulted psychiatry. I have ordered 0.25 mg IV Ativan. She is on p.o. Xanax. No problem taking oral medications today. Discussed with JERRICA Brown many times thru the day- medically she has no clear pathology at this time I have also ordered blood cultures and CBC which is pending. We will get digoxin level as well in the morning We have not been able to get an accurate home med list yet and nursing is working on it. 45 minutes spent with patient so far today coordinting care. -PT and OT evaluation pendingpatient declined PT 08/01 When ready will need to be discharged to half-way facility Does not want intubation or mechanical ventilation per son. Was DNR for a long time till she changed it to conditional status recently and was thinking about going back to DNR but currently conditional code as unable to interact. Admission and Anticipated Discharge Date Admission Date: July 28, 2022 Subjective Was scratching and hitting at night and is wearing mittens. Vitals have been fine. Sats 100% on room air. This morning awakens but does not interact much. Urine retention noticedbladder scan 500 cc x 2 today. Voided fine yesterday post Sheridan removal. At 9 AM when I saw her, she wAS opening her eyes, and " I am very good'. But does not answer any questions. Abdominal breathing is noted Review of systems not possible. Not following commands Physical Exam Physical Exam: 9 am and 1120 h : Somnolent, opens eyes and keeps them open but does not respond to most caloric varies Head and neck dry tongue, Chest is clear to auscultation, prominent abdominal breathing, no audible wheezing today. Prominent hyperpigmentation of lateral aspect of both cheeks and most prominent over the forehead nose upper lip and chin Anicteric sclerae Extremities petechial rash L lower leg trace edema Somnolentcannot complete exam Results & Data Results & Data ([facility]) Vital Signs (Past 12 Hours) Vital Signs Temp Pulse Pulse Resp BP Pulse Ox O2 Del Method 08/02/22 11:11 37 C 116 H 20 130/77 95 Nasal Cannula 08/02/22 09:55 93 Nasal Cannula 08/02/22 08:00 95 H 08/02/22 08:00 Room Air 08/02/22 08:46 36.7 C 91 H 18 127/78 100 Room Air 08/02/22 00:46 103 H O2 Flow Rate 08/02/22 11:11 2 08/02/22 09:55 0 08/02/22 08:00 08/02/22 08:00 08/02/22 08:46 08/02/22 00:46 Laboratory Results 08/02/22 11:27 Aerobic Blood Culture - Pending Blood Anaerobic Blood Culture - Pending 08/02/22 11:36 Aerobic Blood Culture - Pending Blood Anaerobic Blood Culture - Pending 08/02/22 08/02/22 08/02/22 11:41 11:27 11:27 WBC 8.31 RBC 2.96 L Hgb 9.9 L Hct 30.5 L MCV 103.0 H MCH 33.4 MCHC 32.5 RDW Std Deviation 58.7 H RDW Coeff of [place] 15.7 H Plt Count 198 MPV 10.4 Immature Gran % (Auto) 1.2 Neut % (Auto) 70.1 Lymph % (Auto) 13.2 Union % (Auto) 13.4 Eos % (Auto) 1.6 Baso % (Auto) 0.5 Neut # (Auto) 5.83 Lymph # (Auto) 1.10 L Union # (Auto) 1.11 H Eos # (Auto) 0.13 Baso # (Auto) 0.04 Immature Gran # (Auto) 0.10 H Absolute Nucleated RBC 0.03 H Nucleated RBC % (auto) 0.4 ABG pH ABG pCO2 ABG pO2 ABG HCO3 ABG O2 Saturation ABG Base Excess Lexa Test Oxygen Given Sodium 141 Potassium 4.1 Chloride 111 H Carbon Dioxide 22 Anion Gap 8 BUN 18 Creatinine 0.76 Est Cr Clr Drug Dosing 77.7 Est GFR ( Amer) 88.9 Est GFR (Non-Af Amer) 76.7 BUN/Creatinine Ratio 23.7 H Glucose 99 Calcium 8.5 Phosphorus 2.7 Magnesium 2.2 Total Bilirubin 0.9 AST 22 ALT 45 Alkaline Phosphatase 42 Troponin I High Sens 24.1 H B-Natriuretic Peptide Total Protein 6.1 Albumin 3.4 Globulin 2.7 Albumin/Globulin Ratio 1.3 Vitamin B12 Folate 08/02/22 08/02/22 08/02/22 11:27 09:36 05:36 WBC RBC Hgb Hct MCV MCH MCHC RDW Std Deviation RDW Coeff of [place] Plt Count MPV Immature Gran % (Auto) Neut % (Auto) Lymph % (Auto) Union % (Auto) Eos % (Auto) Baso % (Auto) Neut # (Auto) Lymph # (Auto) Union # (Auto) Eos # (Auto) Baso # (Auto) Immature Gran # (Auto) Absolute Nucleated RBC Nucleated RBC % (auto) ABG pH 7.46 H ABG pCO2 30 L ABG pO2 62 L ABG HCO3 21 ABG O2 Saturation 93.4 ABG Base Excess -1.5 Lexa Test POS Oxygen Given ROOM AIR Sodium 138 Potassium 4.1 Chloride 109 H Carbon Dioxide 23 Anion Gap 6 BUN 21 Creatinine 0.87 Est Cr Clr Drug Dosing 67.9 Est GFR ( Amer) 75.5 Est GFR (Non-Af Amer) 65.2 BUN/Creatinine Ratio 24.1 H Glucose 99 Calcium 8.5 Phosphorus Magnesium Total Bilirubin AST ALT Alkaline Phosphatase Troponin I High Sens B-Natriuretic Peptide 265 H Total Protein Albumin Globulin Albumin/Globulin Ratio Vitamin B12 Folate 08/02/22 05:36 WBC RBC Hgb Hct MCV MCH MCHC RDW Std Deviation RDW Coeff of [place] Plt Count MPV Immature Gran % (Auto) Neut % (Auto) Lymph % (Auto) Union % (Auto) Eos % (Auto) Baso % (Auto) Neut # (Auto) Lymph # (Auto) Union # (Auto) Eos # (Auto) Baso # (Auto) Immature Gran # (Auto) Absolute Nucleated RBC Nucleated RBC % (auto) ABG pH ABG pCO2 ABG pO2 ABG HCO3 ABG O2 Saturation ABG Base Excess Lexa Test Oxygen Given Sodium Potassium Chloride Carbon Dioxide Anion Gap BUN Creatinine Est Cr Clr Drug Dosing Est GFR ( Amer) Est GFR (Non-Af Amer) BUN/Creatinine Ratio Glucose Calcium Phosphorus Magnesium Total Bilirubin AST ALT Alkaline Phosphatase Troponin I High Sens B-Natriuretic Peptide Total Protein Albumin Globulin Albumin/Globulin Ratio Vitamin B12 676 Folate 10.20 Diagnostic Findings ABGs 7. 93% room air Medications Administered Abnormal lab results 08/02/22 08/02/22 08/02/22 Range/Units 05:36 09:36 11:27 RBC (3.93-5.22) M/uL Hgb (12.0-16.0) g/dl Hct (34.1-44.9) % MCV (80.0-100.0) fL RDW Std Deviation (36.4-46.3) fL RDW Coeff of [place] (11.5-14.5) % Lymph # (Auto) (1.2-3.4) K/uL Union # (Auto) (0.24-0.82) K/uL Immature Gran # (Auto) (0.00-0.02) K/uL Absolute Nucleated RBC (0-0) K/uL ABG pH 7.46 H (7.35-7.45) ABG pCO2 30 L (35-46) mmHg ABG pO2 62 L (80-95) mmHg Chloride 109 H (98-107) mmol/L BUN/Creatinine Ratio 24.1 H (10-20) Troponin I High Sens (0-14) pg/ml B-Natriuretic Peptide 265 H (0-100) pg/ml 08/02/22 08/02/22 08/02/22 Range/Units 11:27 11:27 11:41 RBC 2.96 L (3.93-5.22) M/uL Hgb 9.9 L (12.0-16.0) g/dl Hct 30.5 L (34.1-44.9) % MCV 103.0 H (80.0-100.0) fL RDW Std Deviation 58.7 H (36.4-46.3) fL RDW Coeff of [place] 15.7 H (11.5-14.5) % Lymph # (Auto) 1.10 L (1.2-3.4) K/uL Union # (Auto) 1.11 H (0.24-0.82) K/uL Immature Gran # (Auto) 0.10 H (0.00-0.02) K/uL Absolute Nucleated RBC 0.03 H (0-0) K/uL ABG pH (7.35-7.45) ABG pCO2 (35-46) mmHg ABG pO2 (80-95) mmHg Chloride 111 H (98-107) mmol/L BUN/Creatinine Ratio 23.7 H (10-20) Troponin I High Sens 24.1 H (0-14) pg/ml B-Natriuretic Peptide (0-100) pg/ml PG Care Time/CCT Total # of Minutes Spent Total Time Spent with Patient: Total time spent is greater than 50% in coordination of care (as documented) at patient's floor/unit and/or counseling patient: Coding Level of Care Code 09478 Subseq Hosp Care Lvl 3 Diagnoses Metabolic encephalopathy G93.41 UTI (urinary tract infection) N39.0 Anxiety F41.9 Macrocytic anemia D53.9 Hypernatremia E87.0 Chronic systolic CHF (congestive heart failure) I50.22 Afib I48.91 Atrial fibrillation type: unspecified Urine retention R33.9 Hypothyroidism E03.9 Comment 60 minutes total so far at 1237 h 08/02. Psychiatry consult awaited (1) Afib Atrial fibrillation type: unspecified Qualified Code(s): I48.91 - Unspecified atrial fibrillation
[2022-08-02] MEDS: SODIUM CHLORIDE 0.9% 500 ML IV SCH (14:41)
[2022-08-02] MEDS: RIVAROXABAN 20 MG TAB PO SCH (17:12)
[2022-08-03] MEDS: SODIUM CHLORIDE 0.9% 500 ML IV SCH ×3 (00:50→13:01)
[2022-08-03] MEDS: oxyCODONE HCL IR 5 MG TAB (IMMEDIATE RELEASE) PO PRN (03:50)
[2022-08-03 05:39] LABS: BUN Creatinine Ratio 22.2 (10-20); Calcium 8.1 mg/dl (8.5-10.1); Creatinine Clr Calc Pharmacy 93.8 ml/min; Est GFR (African American) 101.7 ml/min; Est GFR (Non-African American) 87.7 ml/min; Potassium 3.8 mmol/L (3.5-5.1)
[2022-08-03] MEDS: LEVOTHYROXINE SODIUM 112 MCG TABLET PO SCH (05:46)
[2022-08-03] MEDS ORDERED: ALBUT/IPRATROP 3MG/0.5MG NEB 3 ML VIAL ONE (06:05)
[2022-08-03 06:30] LABS: iSTAT Allen Test Pass; iSTAT Art Bld Gas pCO2 Correct 37 mmHg (35-46); iSTAT Art Bld Gas pH Corrected 7.366 (7.35-7.45); iSTAT Arterial Blood Gas HCO3 21 meg/L (19-24); iSTAT Arterial Blood Gas pCO2 37 mmHg (35-46); iSTAT Arterial Blood Gas pH 7.37 (7.35-7.45); iSTAT Arterial Blood Gas pO2 100 mmHg (80-95); iSTAT Arterial Blood Gas pO2 C 100; iSTAT Carbon Dioxide 22 mmol/L (24-31); iSTAT Hematocrit 25 % (37-47); iSTAT Hemoglobin 8.5 g/dl (12.0-16.0); iSTAT Potassium 3.9 mmol/L (3.3-5.0); iSTAT Site R Radial; iSTAT Sodium 144 mmol/L (135-144)
[2022-08-03] MEDS: DICLOFENAC SOD 1% GEL 100 GM TUBE EXT SCH ×3 (08:52→15:45)
[2022-08-03] MEDS: DOCUSATE SODIUM 100 MG CAP PO SCH (08:52)
[2022-08-03] MEDS: POLYETHYLENE (MIRALAX) 17 GM PACK PO SCH (08:52)
[2022-08-03] MEDS: CIPROFLOXACIN 250 MG TAB PO SCH ×2 (08:52→20:53)
--- NOTE | 2022-08-03 10:03 | Psychiatric Consultation ---
Date of Consultation August 03, 2022 Impression / Recommendations Impression 77 yo woman with unclear psychiatric history but notable for possible history of psychosis, severe anxiety and likely personality component given history of oppositional behaviors via disengagement/refusal to speak or move when overwhelmed admitted for altered mental status. Unclear if dementia component as well at baseline. Given reported use of Invega while at [place] for geriatric psych admission this summer and ongoing somnolence will start risperidone to see if this helps improve engagement and reduces anxiety thought to be driving odd breathing patterns. Has been using Xanax on average 1-2 times per day over last week so would recommend discontinuing this given this can worsen delirium and cognitive components to presentation. If anxiety presents and she is felt to benefit from use of benzodiazepine would favor low dose ativan. Will start trial of risperidone. Given concern for lingering delirium and psychiatric history antipsychotic risk/benefit felt to favor treatment. Note all antipsychotic medications carry black box warning for increased risk of all-cause mortality if she does have any type of underlying dementia. EKG reviewed and QTc <500ms. (1) AMS (altered mental status): (2) Anxiety: Plan -Stop Xanax -Start Ativan 0.25mg po BID prn for anxiety/panic attacks (but try to limit use as this can potentiate delirium) -Start risperidone 0.25mg po BID Psych History Identifying Data 77 yo woman with unclear but significant past psychiatric history with recent geriatric psychiatry admission at [place] previously on Invega admitted medically for altered mental status. Psychiatry consulted for medication recommendations. Chief Complaint mute History of Present Illness Eva was mute during attempts to interview her. Based on chart review her son shared with the hospitalist team that she has a long history of periods of behavioral episodes consisting of refusing to speak or engage with others, especially when anxious or stressed. Long history of severe anxiety. Unclear if she carries any other formal psychiatric diagnosis. Skin has a blue-gold palor, unclear if this is a past reaction to Trilafon use which would suggest a possible psychotic spectrum diagnosis in the past. Had been on Invega while at geriatric psychiatric admission at [place] recently but unit has since closed so records are unavailable. She was eating food a nurse offered when initially entering in her room but she then closed her eyes and would not respond verbally. Noted at times to do deep belly breathing as noted by nursing and other providers has been occurring since admission. Per PDMP review long history of past ativan and Xanax use in outpatient setting presumably for long hx of severe anxiety. Allergies Allergy/AdvReac Type Severity Reaction Status Date / Time gabapentin Allergy Unknown MULTIPLE Verified 12/15/21 18:51 REACTIONS "COULD GO ON AND ON" - SEE NOTES codeine AdvReac Intermediate SEVERE GI Verified 12/15/21 18:51 SYMPTOMS Home Medications Medication Instructions Recorded Confirmed Type levothyroxine 112 mcg tablet 112 mcg PO QAM 11/30/18 04/06/22 History (Synthroid) digoxin 125 mcg (0.125 mg) tablet 125 mcg PO PM 07/07/19 04/06/22 History (Lanoxin) diltiazem HCl 180 mg 180 mg PO QAM 12/11/19 04/06/22 History capsule,extended release 24 hr (Cartia XT) lisinopril 40 mg tablet (Zestril) 40 mg PO QAM 12/11/19 04/06/22 History carvedilol 25 mg tablet (Coreg) 25 mg PO BID 04/22/20 04/06/22 History acetaminophen 500 mg tablet 1,000 mg PO Q6 PRN Pain 04/30/21 04/06/22 History (Tylenol Extra Strength) rivaroxaban 20 mg tablet (Xarelto) 20 mg PO PM 06/03/21 04/06/22 History benzonatate 100 mg capsule 100 mg PO TID PRN Cough 06/20/21 04/06/22 History duloxetine 30 mg capsule,delayed 30 mg PO DAILY #30 caps 11/05/21 04/06/22 Rx release (Cymbalta) alprazolam 0.5 mg tablet 0.5 mg PO TID PRN Anxiety 12/15/21 04/06/22 History cyproheptadine 2 mg/5 mL oral syrup 2 mg PO DAILY PRN ALLERGIES 12/15/21 04/06/22 History dexamethasone 0.5 mg/5 mL oral 1 mg PO DAILY 12/15/21 04/06/22 History solution docusate sodium 100 mg capsule 200 mg PO DAILY 12/15/21 04/06/22 History (Colace) melatonin 1 mg tablet 1 mg PO HS PRN Sleep 12/15/21 04/06/22 History ondansetron 4 mg disintegrating 4 mg PO BID PRN nausea and vomiting 12/15/21 04/06/22 History tablet clindamycin HCl 150 mg capsule 150 mg PO QID 04/06/22 04/06/22 History furosemide 40 mg tablet 40 mg PO DAILY 04/06/22 04/06/22 History oxycodone 5 mg tablet 5 mg PO Q6H PRN Pain 04/06/22 04/06/22 History Personal History Living Arrangements: Home (with her son) Beliefs That Will Affect Care: None Patient History Medical History Ambulatory dysfunction LIMITED MOBILITY D/T CHRONIC WEAKNESS PER PT & SON Anxiety Atrial fibrillation DX 8 YR AGO, HX CARDIOVERSION Atrial fibrillation with RVR no pacer> follows with Dr. March > stable Cardiomyopathy CHF (congestive heart failure) Chronic fatigue syndrome Chronic pain CKD (chronic kidney disease), stage III Gallbladder problem POSSIBLE PER PT...NO MEDICAL DX OF, NO EVAL FOR GI problem "INFLAMMATION OF DIGESTIVE TRACT" - PT DENIES MEDICAL DX OF DIGESTIVE PROBLEM SUCH IBS, CHRON'S, DIVERTICULTIS,COLITIS, ETC... Headache History of anemia History of recurrent UTIs REPORTS HX BLADDER INFECTIONS - NONE CURRENT Hypothyroidism Lumbar facet joint syndrome Multinodular goiter ? HX OF Neck stiffness PT REPORTS ONGOING PROBLEM, POSTURE RELATED SOB (shortness of breath) on exertion TIA (transient ischemic attack) pt reports was stroke like symptoms but was related to being sick, not actual TIA Weakness CHRONIC Surgical History H/O breast augmentation History of colonoscopy History of laparoscopy "LASER LAPARAOSCOPIES" S/P tooth extraction HX Family History Mother , age 83 with lung cancer and COPD Lung cancer COPD (chronic obstructive pulmonary disease) Family history of diabetes mellitus Father , in 70s of bladder cancer and COPD Bladder cancer COPD (chronic obstructive pulmonary disease) Family history of diabetes mellitus Brother Family history of diabetes mellitus Other Allergies Asthma Cancer Family history of bleeding disorder Family history of colon cancer in father Hearing loss Heart disease Hypertension Denies family history of Stroke Social History Smoking Status: Never smoker Second Hand Exposure: No; Hx Alcohol Use: No Hx Substance Use: No Preferred Language: Nicaraguan Communication Ability: Impaired Communication Ability Comment: Cataracts Visual Impairment: No Limitations Manager Pet Required: No Beliefs That Will Affect Care: None marital status: Single Current Living Situation: Family Current Living Situation Comment: lives with son current occupational status: retired and disabled How many Children do You have: 2 Other Information That Helps Us Care for You: No other: Disabled in her 50s. 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 Safe at Home: Yes Assistive Devices: Glasses, Hearing Aid - Bilateral, Walker and Wheelchair Physical Exam Psychiatric: Orientation: alert and + guarded Apperance: + disheveled Eye Contact: + poor eye contact Motor Behavior: no abnormal motor movements Speech: + mute Affect: + flat affect Insight: + severely impaired insight Judgement: + severely impaired judgement Vital Signs (Past 24 Hours): Last Vital Signs Temp 36.4 C L 08/03/22 07:29 Pulse 84 08/03/22 09:00 Resp 24 08/03/22 07:29 BP 127/85 08/03/22 07:29 Pulse Ox 96 08/03/22 07:29 O2 Del Method 08/03/22 09:06 O2 Flow Rate 3 08/03/22 07:29 Review of Systems Unobtainable due to cognitive status Results & Data (PSY) Medications Administered Acetaminophen (Acetaminophen 500 Mg Tab) 1,000 mg PO Q6 PRN PRN Reason: Pain Stop: 08/27/22 10:49 Last Admin: 08/01/22 11:31 Dose: 1,000 mg Documented By: Admin: 08/01/22 04:15 Dose: 1,000 mg Documented By: Admin: 07/31/22 21:04 Dose: 1,000 mg Documented By: Admin: 07/30/22 14:26 Dose: 1,000 mg Documented By: GEOVANI Alprazolam (Alprazolam 0.5 Mg Tablet) 0.5 mg PO TID PRN PRN Reason: Anxiety Stop: 08/29/22 15:33 Last Admin: 08/02/22 20:39 Dose: 0.5 mg Documented By: Admin: 08/02/22 15:02 Dose: 0.5 mg Documented By: Admin: 08/02/22 00:42 Dose: 0.5 mg Documented By: Admin: 08/01/22 20:43 Dose: 0.5 mg Documented By: Admin: 08/01/22 11:41 Dose: 0.5 mg Documented By: Admin: 07/31/22 17:33 Dose: 0.5 mg Documented By: Admin: 07/31/22 11:23 Dose: 0.5 mg Documented By: Admin: 07/31/22 00:18 Dose: 0.5 mg Documented By: MINDY Ciprofloxacin (Ciprofloxacin 250 Mg Tab) 250 mg PO Q12H JENNY Stop: 08/06/22 19:59 Last Admin: 08/03/22 08:52 Dose: Not Given Documented By: Admin: 08/02/22 20:39 Dose: 250 mg Documented By: Admin: 08/02/22 09:02 Dose: 250 mg Documented By: Admin: 08/01/22 20:43 Dose: 250 mg Documented By: SUJEY Diclofenac Sodium (Diclofenac Sod 1% Gel 100 Gm Tube) 2 gm EXT [id number] JENNY; Protocol Stop: 09/01/22 07:59 Last Admin: 08/03/22 08:52 Dose: Not Given Documented By: Admin: 08/02/22 15:02 Dose: 2 gm Documented By: Admin: 08/02/22 13:02 Dose: 2 gm Documented By: Admin: 08/02/22 09:02 Dose: 2 gm Documented By: FARTUN Docusate Sodium (Docusate Sodium 100 Mg Cap) 200 mg PO DAILY JENNY Stop: 08/28/22 08:59 Last Admin: 08/03/22 08:52 Dose: Not Given Documented By: Admin: 08/02/22 09:02 Dose: 200 mg Documented By: Admin: 08/01/22 08:25 Dose: 200 mg Documented By: Admin: 07/31/22 07:57 Dose: 200 mg Documented By: Admin: 07/30/22 08:38 Dose: Not Given Documented By: Admin: 07/29/22 09:41 Dose: Not Given Documented By: SHANKAR Sodium Chloride (Nss) 500 mls @ 80 mls/hr IV .Q6H15M JENNY Stop: 09/01/22 13:29 Last Admin: 08/03/22 05:32 Dose: 80 mls/hr Documented By: Infusion: 08/03/22 05:32 Dose: 0 mls/hr Documented By: Infusion: 08/03/22 05:19 Dose: 80 mls/hr Documented By: Admin: 08/03/22 00:50 Dose: 80 mls/hr Documented By: Infusion: 08/03/22 00:50 Dose: 0 mls/hr Documented By: Infusion: 08/02/22 21:01 Dose: 80 mls/hr Documented By: Admin: 08/02/22 14:41 Dose: 80 mls/hr Documented By: FARTUN Levothyroxine Sodium (Levothyroxine Sodium 112 Mcg Tablet) 112 mcg PO DAILYBB JENNY Stop: 08/29/22 15:44 Last Admin: 08/03/22 05:46 Dose: 112 mcg Documented By: Admin: 08/02/22 05:54 Dose: Not Given Documented By: Admin: 08/01/22 05:35 Dose: 112 mcg Documented By: Admin: 07/31/22 05:33 Dose: Not Given Documented By: Admin: 07/30/22 17:58 Dose: Not Given Documented By: GEOVANI Oxycodone HCl (Oxycodone Hcl Ir 5 Mg Tab (Immediate Release)) 5 mg PO Q6H PRN PRN Reason: Pain Stop: 08/13/22 15:33 Last Admin: 08/03/22 03:50 Dose: 5 mg Documented By: Admin: 08/02/22 20:39 Dose: 5 mg Documented By: Admin: 08/02/22 12:12 Dose: 5 mg Documented By: Admin: 08/01/22 22:00 Dose: 5 mg Documented By: Admin: 08/01/22 15:34 Dose: 5 mg Documented By: Admin: 08/01/22 09:51 Dose: 5 mg Documented By: Admin: 08/01/22 06:51 Dose: 5 mg Documented By: Admin: 08/01/22 01:41 Dose: 5 mg Documented By: Admin: 07/31/22 17:33 Dose: 5 mg Documented By: Admin: 07/31/22 11:23 Dose: 5 mg Documented By: Admin: 07/31/22 02:59 Dose: 5 mg Documented By: Admin: 07/30/22 19:30 Dose: 5 mg Documented By: MINDY Polyethylene Glycol (Polyethylene (Miralax) 17 Gm Pack) 17 gm PO DAILY [facility] Stop: 08/30/22 08:59 Last Admin: 08/03/22 08:52 Dose: Not Given Documented By: Admin: 08/02/22 09:02 Dose: 17 gm Documented By: Admin: 08/01/22 08:23 Dose: 17 gm Documented By: Admin: 07/31/22 07:55 Dose: 17 gm Documented By: JIGNA Rivaroxaban (Rivaroxaban 20 Mg Tab) 20 mg PO QDD [facility] Stop: 08/30/22 16:29 Last Admin: 08/02/22 17:12 Dose: 20 mg Documented By: Admin: 08/01/22 15:34 Dose: 20 mg Documented By: Admin: 07/31/22 17:01 Dose: 20 mg Documented By: JIGNA Coding Level of Care Code 57332 Inpt Consult Level 3 Diagnoses AMS (altered mental status) R41.82 Anxiety F41.9
--- NOTE | 2022-08-03 10:15 | Hospitalist Progress Note ---
Date of Service August 03, 2022 Assessment & Plan (1) Metabolic encephalopathy: Plan: resolved- Patient admitted with worsening confusion on baseline cognitive impairmentwhich was attributed to UTI and resolving until yesterday 08/01 when she was stressed out according to her son. But interactive and getting closer to baseline cognition. Visited her twice 08/01 in the afternoon and she kept complaining of pain in the left knee and occasionally abdominal. However she was interactive. This morning somnolent Abdominal breathing noted Respiratory alkalosis on ABGs. Labs normal 08/02 now severe anxiety/ psychosis 08/02 1211 (2) UTI (urinary tract infection): Plan: 77-year-old female presenting with weakness, altered mental status, found to have UTI requiring ongoing management in the setting of multiple comorbidities and need for close hemodynamic monitoring. (3) AMS (altered mental status): Plan: See above. (4) Acute kidney injury superimposed on chronic kidney disease: Plan: Now resolved but still quite dry oral mucosa, drinking a lot of water Resolved (5) Chronic, continuous use of opioids: Plan: Complained of pain and got Oxycodone as needed. Fentanyl patch being held. (6) Weakness: Plan: Acute on chronic. Likely 2/2 to above. (7) Hypothyroidism: Plan: TSH level wnl. Continue home Rx dosing. (8) Afib: It is rate controlled Plan: Continue home antiarrhythmic and anticoagulation drugs (3) Anxiety: Plan: Alprazolam as needed 1120 H 08/02 ordered Ativan 0.25 mg IV as she does appear anxious and is hyperventilating as well as tachycardic. (4) Macrocytic anemia: Plan: Recent macrocytosis during this 676 AND folate 12 (5) Hypernatremia: Plan: Sodium has come down from 1 48 to 1 46, now normal. Normal basic metabolic panel twice08/02 . (6) Chronic systolic CHF (congestive heart failure): Plan: Stable. Appreciate cardiology input. 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 (7) Afib: Plan: RATE CONTROLLED, xareto Three 3.5 second pauses-asymptomatic without hypotension 3 PM 08/03 Telemetry at 1930 hrs.08/03 recap : Heart rate in the 70s atrial fibrillation. The heart rate observed in the 30s was because of her multiple PVCs and also artifact. Her heart rate on telemetry has not been below 50s. Digoxin, diltiazem and Coreg on hold since admission (8) Urine retention: Plan: Likely oxycodone related. Will attempt Sheridan removal in the morning 08/04 (9) Hypothyroidism: Plan: SynthroidTSH 0.6 on admission. Plan 08/02/2022 Today appears quite anxious. I spoke with son Josue -patient had hallucinations from January to March and was hospitalized 4 weeks in [place], [place], which has closed 1 month ago per nursing. Her PCP tried to obtain records from that hospital without success 2 months ago. She was started there on[facility] per son He is not aware of what diagnosis was made she has a longstanding history of anxiety. He was not able to get her in with [facility] psychiatry because of some age limit and lack of geriatric psychiatrists in the area. Josue reports that the patient fixates on some things and then spirals out of control as far as anxiety and this is ongoing for some years. She lives with Josue. 08/03/2022 Psychiatry evaluated patient today-continue Xanax p.o. twice daily and add Ativan as needed. Dr TONY of psychiatry has started risperidone 0.25 mg p.o. twice daily which has really improved engagement in conversation as of this evening We have not been able to get an accurate home med list yet and nursing is working on it. -PT and OT evaluation pendingpatient declined PT 08/01 When ready will need to be discharged to long term facility. Does not want intubation or mechanical ventilation per son. Was DNR for a long time till she changed it to conditional status recently. When I addressed it 08/03 pm, " I cannot think. There is something wrong." and smiles, Remains conditional code. (No intubation or mechanical ventilation). 08/03/2022 three short pauses on telemetry around 3 PM. Asymptomatic. Normotensive. D/W cardiology Dr Jerome- keep on cutaneous pacer pads on. If symptomatic with bradycardia and/or hypotensive, start dopamine and transfer to the ICU. Maintain vigilance with dopamine because the patient has underlying A. fib. I have discussed with resident on-call tonight. Admission and Anticipated Discharge Date Admission Date: July 28, 2022 Subjective at 0940 h, d/w RN : lethargic this am , but interacting now, asked [employer] for cold cereal , as breakfast not eaten earlier Slept intermittently, agitated occasionally overnight and needed hand mittens put back Son Josue here last evening and was not concerned with her mental status then, acts like this at home he reported Voices no complaints to me When asked if any pain, says her belly. ROS not reliable says " apricot bran bread" when asked what she needs today 1850 h Feeling great. Chatting. I was called because the patient had had 3.5 to 3.7- second pauses around 3 pm and was getting bradycardic again. Saying she has felt the best she has since she came in, praising the [employer] who fed her meals. Denies any pain Physical Exam Physical Exam: 0945 h pleasant, sitting w eyes closed, but opens them, smiles and says I am fine 1850 h as in subjective above Abd breathing less intense 98 to 100 % RA Says she is in a [place] hospital, unable to name month No audible wheezing dry tongue, pigmented chin, nose, upper lip Chest : cta B/L CVS : s1, s2 tele - a fib w rate 102 Abd lax [employer]: 4-5/5 elbow flexors, 5/5 plantar flexors Skin right posterior foot covered with DuoDERM Results & Data Results & Data ([facility]) Vital Signs (Past 12 Hours) Vital Signs Temp Pulse Pulse Resp BP Pulse Ox O2 Del Method 08/03/22 09:06 Room Air 08/03/22 09:00 84 08/03/22 07:29 36.4 C L 70 24 127/85 96 Nasal Cannula 08/03/22 06:10 67 28 H 99 Nasal Cannula 08/03/22 05:08 75 20 119/75 100 Nasal Cannula 08/03/22 03:00 36.6 C 99 H 18 107/71 97 Room Air 08/02/22 23:56 87 08/02/22 23:00 36.8 C 60 16 116/80 97 Nasal Cannula O2 Flow Rate 08/03/22 09:06 08/03/22 09:00 08/03/22 07:29 3 08/03/22 06:10 3 08/03/22 05:08 3 12/11/22 03:00 08/02/22 23:56 08/02/22 23:00 3 Laboratory Results 08/02/22 11:27 Aerobic Blood Culture - Pending Blood Anaerobic Blood Culture - Pending 08/02/22 11:36 Aerobic Blood Culture - Pending Blood Anaerobic Blood Culture - Pending 08/03/22 08/03/22 08/02/22 06:09 04:37 11:41 WBC 8.31 RBC 2.96 L Hgb 9.9 L POC Hgb 8.5 L Hct 30.5 L POC Hct 25 L MCV 103.0 H MCH 33.4 MCHC 32.5 RDW Std Deviation 58.7 H RDW Coeff of [place] 15.7 H Plt Count 198 MPV 10.4 Immature Gran % (Auto) 1.2 Neut % (Auto) 70.1 Lymph % (Auto) 13.2 Tama % (Auto) 13.4 Eos % (Auto) 1.6 Baso % (Auto) 0.5 Neut # (Auto) 5.83 Lymph # (Auto) 1.10 L Tama # (Auto) 1.11 H Eos # (Auto) 0.13 Baso # (Auto) 0.04 Immature Gran # (Auto) 0.10 H Absolute Nucleated RBC 0.03 H Nucleated RBC % (auto) 0.4 Sample Site R Radial POC pH 7.37 POC pCO2 37 POC pO2 100 H POC HCO3 21 POC Total CO2 22 L POC Base Excess -4.0 ABG pH (Temp Correct) 7.366 ABG pCO2 (Temp Corrct 37 POC ABG pO2 at Pt Temp 100 POC ABG O2 Sat 98.0 H Lexa Test Pass O2 Delivery Device Cannula POC Sodium 144 Sodium 142 POC Potassium 3.9 Potassium 3.8 Chloride 112 H Carbon Dioxide 23 Anion Gap 7 BUN 14 Creatinine 0.63 Est Cr Clr Drug Dosing 93.8 Est GFR ( Amer) 101.7 Est GFR (Non-Af Amer) 87.7 BUN/Creatinine Ratio 22.2 H Glucose 96 Calcium 8.1 L Phosphorus Magnesium Total Bilirubin AST ALT Alkaline Phosphatase Troponin I High Sens B-Natriuretic Peptide Total Protein Albumin Globulin Albumin/Globulin Ratio 08/02/22 08/02/22 08/02/22 11:27 11:27 11:27 WBC RBC Hgb POC Hgb Hct POC Hct MCV MCH MCHC RDW Std Deviation RDW Coeff of [place] Plt Count MPV Immature Gran % (Auto) Neut % (Auto) Lymph % (Auto) Tama % (Auto) Eos % (Auto) Baso % (Auto) Neut # (Auto) Lymph # (Auto) Tama # (Auto) Eos # (Auto) Baso # (Auto) Immature Gran # (Auto) Absolute Nucleated RBC Nucleated RBC % (auto) Sample Site POC pH POC pCO2 POC pO2 POC HCO3 POC Total CO2 POC Base Excess ABG pH (Temp Correct) ABG pCO2 (Temp Corrct POC ABG pO2 at Pt Temp POC ABG O2 Sat Lexa Test O2 Delivery Device POC Sodium Sodium 141 POC Potassium Potassium 4.1 Chloride 111 H Carbon Dioxide 22 Anion Gap 8 BUN 18 Creatinine 0.76 Est Cr Clr Drug Dosing 77.7 Est GFR ( Amer) 88.9 Est GFR (Non-Af Amer) 76.7 BUN/Creatinine Ratio 23.7 H Glucose 99 Calcium 8.5 Phosphorus 2.7 Magnesium 2.2 Total Bilirubin 0.9 AST 22 ALT 45 Alkaline Phosphatase 42 Troponin I High Sens 24.1 H B-Natriuretic Peptide 265 H Total Protein 6.1 Albumin 3.4 Globulin 2.7 Albumin/Globulin Ratio 1.3 Medications Administered Home Medications Medication Instructions Recorded Confirmed Last Taken levothyroxine 112 mcg tablet 112 mcg PO QAM 11/30/18 04/06/22 04/05/22 (Synthroid) digoxin 125 mcg (0.125 mg) tablet 125 mcg PO PM 07/07/19 04/06/22 04/05/22 (Lanoxin) diltiazem HCl 180 mg 180 mg PO QAM 12/11/19 04/06/22 04/05/22 capsule,extended release 24 hr (Cartia XT) lisinopril 40 mg tablet (Zestril) 40 mg PO QAM 12/11/19 04/06/22 04/05/22 carvedilol 25 mg tablet (Coreg) 25 mg PO BID 04/22/20 04/06/22 04/05/22 acetaminophen 500 mg tablet 1,000 mg PO Q6 PRN Pain 04/30/21 04/06/22 10/23/21 (Tylenol Extra Strength) rivaroxaban 20 mg tablet (Xarelto) 20 mg PO PM 06/03/21 04/06/22 04/05/22 benzonatate 100 mg capsule 100 mg PO TID PRN Cough 06/20/21 04/06/22 10/23/21 duloxetine 30 mg capsule,delayed 30 mg PO DAILY #30 caps 11/05/21 04/06/22 04/05/22 release (Cymbalta) alprazolam 0.5 mg tablet 0.5 mg PO TID PRN Anxiety 12/15/21 04/06/22 04/05/22 cyproheptadine 2 mg/5 mL oral syrup 2 mg PO DAILY PRN ALLERGIES 12/15/21 04/06/22 Unknown dexamethasone 0.5 mg/5 mL oral 1 mg PO DAILY 12/15/21 04/06/22 04/05/22 solution docusate sodium 100 mg capsule 200 mg PO DAILY 12/15/21 04/06/22 04/05/22 (Colace) melatonin 1 mg tablet 1 mg PO HS PRN Sleep 12/15/21 04/06/22 Unknown ondansetron 4 mg disintegrating 4 mg PO BID PRN nausea and vomiting 12/15/21 04/06/22 Unknown tablet clindamycin HCl 150 mg capsule 150 mg PO QID 04/06/22 04/06/22 04/05/22 furosemide 40 mg tablet 40 mg PO DAILY 04/06/22 04/06/22 04/05/22 oxycodone 5 mg tablet 5 mg PO Q6H PRN Pain 04/06/22 04/06/22 Unknown Active Medications Generic Name Dose Route Start Last Admin Trade Name Freq PRN Reason Stop Dose Admin Acetaminophen 1,000 mg 07/28/22 10:50 08/01/22 11:31 Acetaminophen 500 Mg Tab PO 08/27/22 10:49 1,000 mg Q6 PRN Administration Pain Alprazolam 0.5 mg 07/30/22 15:34 08/02/22 20:39 Alprazolam 0.5 Mg Tablet PO 08/29/22 15:33 0.5 mg TID PRN Administration Anxiety Ciprofloxacin 250 mg 08/01/22 20:00 08/03/22 08:52 Ciprofloxacin 250 Mg Tab PO 08/06/22 19:59 Not Given Q12H JENNY Diclofenac Sodium 2 gm 08/02/22 08:00 08/03/22 08:52 Diclofenac Sod 1% Gel 100 Gm Tube EXT 09/01/22 07:59 Not Given [id number] JENNY Protocol Docusate Sodium 200 mg 07/29/22 09:00 08/03/22 08:52 Docusate Sodium 100 Mg Cap PO 08/28/22 08:59 Not Given DAILY JENNY Sodium Chloride 500 mls @ 80 mls/hr 08/02/22 13:30 08/03/22 05:32 Nss IV 09/01/22 13:29 80 mls/hr .[id number] JENNY Administration Levothyroxine Sodium 112 mcg 07/30/22 16:30 08/03/22 05:46 Levothyroxine Sodium 112 Mcg Tablet PO 08/29/22 15:44 112 mcg DAILYBB JENNY Administration Oxycodone HCl 5 mg 07/30/22 15:34 08/03/22 03:50 Oxycodone Hcl Ir 5 Mg Tab (Immediate Release) PO 08/13/22 15:33 5 mg Q6H PRN Administration Pain Polyethylene Glycol 17 gm 07/31/22 09:00 08/03/22 08:52 Polyethylene (Miralax) 17 Gm Pack PO 08/30/22 08:59 Not Given DAILY JENNY Rivaroxaban 20 mg 07/31/22 16:30 08/02/22 17:12 Rivaroxaban 20 Mg Tab PO 08/30/22 16:29 20 mg QDD JENNY Administration PG Care Time/CCT Total # of Minutes Spent Total Time Spent with Patient: Total time spent is greater than 50% in coordination of care (as documented) at patient's floor/unit and/or counseling patient: Coding Level of Care Code 69733 Subseq Hosp Care Lvl 3 Diagnoses Metabolic encephalopathy G93.41 UTI (urinary tract infection) N39.0 Anxiety F41.9 Macrocytic anemia D53.9 Hypernatremia E87.0 Chronic systolic CHF (congestive heart failure) I50.22 Afib I48.91 Atrial fibrillation type: unspecified Urine retention R33.9 Hypothyroidism E03.9 (1) Afib Atrial fibrillation type: unspecified Qualified Code(s): I48.91 - Unspecified atrial fibrillation
[2022-08-03] MEDS: risperiDONE 0.5 MG TABLET PO SCH ×2 (12:04→20:53)
[2022-08-03] MEDS: RIVAROXABAN 20 MG TAB PO SCH (18:00)
[2022-08-03] MEDS: ALPRAZolam 0.5 MG TABLET PO PRN (20:53)
[2022-08-03 22:48] LABS: Hemoglobin 9.3 g/dl (12.0-16.0)
[2022-08-03] MEDS: ACETAMINOPHEN 500 MG TAB PO PRN (23:18)
[2022-08-04] MEDS: LEVOTHYROXINE SODIUM 112 MCG TABLET PO SCH (04:33)
[2022-08-04] MEDS: ACETAMINOPHEN 500 MG TAB PO PRN (04:33)
[2022-08-04 06:59] LABS: Albumin Globulin Ratio 1.3 (0.9-2); Albumin Level 3.2 gm/dl (3.4-5.0); BUN Creatinine Ratio 16.3 (10-20); Bilirubin,Total 0.7 mg/dl (0.2-1.0); Calcium 8.1 mg/dl (8.5-10.1); Creatinine Clr Calc Pharmacy 73.9 ml/min; Est GFR (African American) 83.6 ml/min; Est GFR (Non-African American) 72.1 ml/min; Globulin 2.5 gm/dl (2.5-4.0); Potassium 3.7 mmol/L (3.5-5.1); Total Protein 5.7 gm/dl (6.0-8.3)
[2022-08-04] MEDS: CIPROFLOXACIN 250 MG TAB PO SCH ×3 (07:33→22:27)
[2022-08-04] MEDS: risperiDONE 0.5 MG TABLET PO SCH ×3 (07:34→22:27)
[2022-08-04] MEDS: DICLOFENAC SOD 1% GEL 100 GM TUBE EXT SCH ×3 (07:35→17:13)
[2022-08-04] MEDS: POLYETHYLENE (MIRALAX) 17 GM PACK PO SCH (07:35)
[2022-08-04] MEDS: DOCUSATE SODIUM 100 MG CAP PO SCH (07:38)
--- NOTE | 2022-08-04 08:56 | Electrocardiogram Report ---
Test Reason : Blood Pressure : / mmHG Vent. 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 lead placement vs. LVH Abnormal ECG When compared with ECG of 28-JUL-2022 15:27, QRS duration has decreased Otherwise no significant change Confirmed by Jose Beasley ([id number]) on 08/04/2022 8:55:55 AM Referred By: REFERRED SELF Confirmed By:Jose Beasley
--- NOTE | 2022-08-04 08:59 | Electrocardiogram Report ---
Test Reason : Blood Pressure : / mmHG Vent. 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
--- NOTE | 2022-08-04 11:39 | Psychiatric Progress Note ---
Date of Service August 04, 2022 Impression / Recommendations Impression 77 yo woman with history of anxiety and panic attacks with progressive major neurocognitive disordder and development of hallucinations following celebral ischemic resulting in geriatric psychiatric admission this summer. Improving significantly with addition of risperidone and previously responded well to [facility] NUNE[facility]. 08/04/22: Significant improvement in mental status today since addition of risperidone. Could be due to ongoing improvement of hypoactive delirium versus improvement of dementia associated psychosis/behavioral changes versus anxiety. Given stability of QTc on EKG and ongoing anxiety would consider increasing hs dose of risperidone. Discussed with hospitalist who felt from cardiac standpoint safe for further dose titration. (1) AMS (altered mental status): (2) Major neurocognitive disorder: Plan -Increase risperidone to 0.25mg qAM and 0.5mg qhs Interval History Identifying Information 77 yo woman with unclear but significant past psychiatric history with recent geriatric psychiatry admission at [place] previously on Invega admitted medically for altered mental status. Psychiatry consulted for medication recommendations. Chief Complaint "Are you one of the teacher's here". Review of Systems Notes slept overnight, eating Subjective Subjective Patient was seen & assessed and interval progress reviewed. Eva was more communicative yesterday after recieving risperidone. Today thinks we are at [employer] and that she is taking classes and I am a teacher but pleasant, smiling, laughing socially during the conversation. Feels her physical pain has improved significantly and states relief from this. Reports some anxiety, especially worried about whether or not anything bad has happened to her son, relieved to here he has been speaking with providers and is doing well. She gives permission for psych liason to speak with her son via phone and provide update and get information from him. She is grateful for the medication changes and feels it may be helping with anxiety. No observable side effects nor any she reports. Physical Exam Psychiatric Orientation: alert and oriented to person; + not oriented to place and + not oriented to time Apperance: appropriately dressed and + disheveled Eye Contact: good eye contact Motor Behavior: no abnormal motor movements Speech: normal rate/rhythm/volume of speech Affect: euthymic affect Mood: + anxious mood; no depressed mood Thought Process: + looseness of associations Thought Content: + preoccupation Suicidal Thoughts: denies suicidal thoughts Homicidal Thoughts: denies homicidal thoughts Hallucinations: no auditory hallucinations and no visual hallucinations Cognition: language grossly intact; + recent memory not intact and + attention not intact Insight: + severely impaired insight Judgement: + severely impaired judgement Vital Signs (Past 24 Hours) Last Vital Signs Temp 36.8 C 08/04/22 07:28 Pulse 74 08/04/22 07:28 Resp 18 08/04/22 07:28 BP 122/77 08/04/22 07:28 Pulse Ox 95 08/04/22 07:28 O2 Del Method 08/04/22 11:19 O2 Flow Rate 2 08/04/22 02:43 Results & Data ([facility]) Laboratory Results Laboratory Results - last 24 hr 08/03/22 08/04/22 08/04/22 22:37 05:57 05:57 Hgb 9.3 L Hct 28.0 L Sodium 139 Potassium 3.7 Chloride 110 H Carbon Dioxide 22 Anion Gap 7 BUN 13 Creatinine 0.80 Est Cr Clr Drug Dosing 73.9 Est GFR ( Amer) 83.6 Est GFR (Non-Af Amer) 72.1 BUN/Creatinine Ratio 16.3 Glucose 101 H Calcium 8.1 L Total Bilirubin 0.7 AST 17 ALT 36 Alkaline Phosphatase 40 Total Protein 5.7 L Albumin 3.2 L Globulin 2.5 Albumin/Globulin Ratio 1.3 TSH 1.837 Current Inpatient Medications Current Inpatient Medications: Current Inpatient Medications Acetaminophen (Acetaminophen 500 Mg Tab) 1,000 mg PO Q6 PRN PRN Reason: Pain Stop: 08/27/22 10:49 Last Admin: 08/04/22 04:33 Dose: 1,000 mg Alprazolam (Alprazolam 0.5 Mg Tablet) 0.5 mg PO TID PRN PRN Reason: Anxiety Stop: 08/29/22 15:33 Last Admin: 08/03/22 20:53 Dose: 0.5 mg Ciprofloxacin (Ciprofloxacin 250 Mg Tab) 250 mg PO Q12H JENNY Stop: 08/06/22 19:59 Last Admin: 08/04/22 07:33 Dose: 250 mg Diclofenac Sodium (Diclofenac Sod 1% Gel 100 Gm Tube) 2 gm EXT [id number] JENNY; Protocol Stop: 09/01/22 07:59 Last Admin: 08/04/22 07:35 Dose: 2 gm Docusate Sodium (Docusate Sodium 100 Mg Cap) 200 mg PO DAILY [facility] Stop: 08/28/22 08:59 Last Admin: 08/04/22 07:38 Dose: 200 mg Levothyroxine Sodium (Levothyroxine Sodium 112 Mcg Tablet) 112 mcg PO DAILYBB [facility] Stop: 08/29/22 15:44 Last Admin: 08/04/22 04:33 Dose: 112 mcg Ondansetron HCl (Ondansetron Inj 2 Mg/Ml 2 Ml Vial) 4 mg IV Q6H PRN PRN Reason: Nausea Stop: 08/27/22 10:28 Oxycodone HCl (Oxycodone Hcl Ir 5 Mg Tab (Immediate Release)) 5 mg PO Q6H PRN PRN Reason: Pain Stop: 08/13/22 15:33 Last Admin: 08/03/22 03:50 Dose: 5 mg Polyethylene Glycol (Polyethylene (Miralax) 17 Gm Pack) 17 gm PO DAILY [facility] Stop: 08/30/22 08:59 Last Admin: 08/04/22 07:35 Dose: 17 gm Risperidone (Risperidone 0.5 Mg Tablet) 0.25 mg PO BID [facility] Stop: 09/02/22 10:44 Last Admin: 08/04/22 07:34 Dose: 0.25 mg Rivaroxaban (Rivaroxaban 20 Mg Tab) 20 mg PO QDD [facility] Stop: 08/30/22 16:29 Last Admin: 08/03/22 18:00 Dose: 20 mg
[2022-08-04] MEDS: oxyCODONE HCL IR 5 MG TAB (IMMEDIATE RELEASE) PO PRN (11:44)
[2022-08-04] MEDS: RIVAROXABAN 20 MG TAB PO SCH (17:13)
--- NOTE | 2022-08-04 20:40 | Hospitalist Progress Note ---
Date of Service August 04, 2022 Assessment & Plan (1) Metabolic encephalopathy: Plan: resolved-finished 5 days of ciprofloxacin for a UTI Patient admitted with worsening confusion on baseline cognitive impairment which was attributed to UTI and resolving . But interactive and getting closer to baseline cognition. Visited her twice 08/01 in the afternoon and she kept complaining of pain in the left knee and occasionally abdominal. However she was interactive. 08/02 Abdominal breathing noted Respiratory alkalosis on ABGs. Labs normal 08/02 dx severe anxiety/ psychosis 08/02 08/03 3.5 to 3.7-second pauses on telemetry with intermittent bradycardia seen. Asymptomatic and clinically quite well. Transcutaneous pacer pads had to be placed when heart rate on telemetry was at 30 but that seem to be also full of artifacts and multiple PVCs. Cardiology were reconsulted but have not seen patient yet 08/04-remains well with no pauses all day. Psychiatry have increased her Risperdal at night 2.5 at bedtime. Has baseline cognitive impairment and severe anxiety. (2) UTI (urinary tract infection): Plan: 77-year-old female presenting with weakness, altered mental status, found to bledsoe ve UTI requiring ongoing management in the setting of multiple comorbidities and need for close hemodynamic monitoring. (3) AMS (altered mental status): Plan: See above. (4) Acute kidney injury superimposed on chronic kidney disease: Plan: Now resolved but still quite dry oral mucosa, drinking a lot of water Resolved (5) Chronic, continuous use of opioids: Plan: Complained of pain and got Oxycodone as needed. Fentanyl patch being held. (6) Weakness: Plan: Acute on chronic. Likely 2/2 to above. (7) Hypothyroidism: Plan: TSH level wnl. Continue home Rx dosing. (8) Afib: It is rate controlled Plan: Continue home antiarrhythmic and anticoagulation drugs (3) Anxiety: Plan: Alprazolam as needed 1120 H 08/02 ordered Ativan 0.25 mg IV as she does appear anxious and is hyperventilating as well as tachycardic. (4) Macrocytic anemia: Plan: Recent macrocytosis during this [id number] AND folate 12 (5) Hypernatremia: Plan: Sodium has come down from 1 48 to 1 46, now normal. Normal basic metabolic panel twice08/02 . (6) Chronic systolic CHF (congestive heart failure): Plan: Stable. Appreciate cardiology input. 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 (7) Afib: Plan: RATE CONTROLLED, xareto Three 3.5 second pauses-asymptomatic without hypotension 3 PM 08/03 Telemetry at 1930 hrs.08/03 recap : Heart rate in the 70s atrial fibrillation. The heart rate observed in the 30s was because of her multiple PVCs and also artifact. Her heart rate on telemetry has not been below 50s. Digoxin, diltiazem and Coreg on hold since admission (8) Urine retention: Plan: Likely oxycodone related. Will attempt Sheridan removal in the morning 08/04 (9) Hypothyroidism: Plan: SynthroidTSH 0.6 on admission. Plan 08/02/2022 Today appears quite anxious. I spoke with son Josue -patient had hallucinations from January to March and was hospitalized 4 weeks in [place], [place], which has closed 1 month ago per nursing. Her PCP tried to obtain records from that hospital without success 2 months ago. She was started there onEnvega per son He is not aware of what diagnosis was made she has a longstanding history of anxiety. He was not able to get her in with [facility] psychiatry because of some age limit and lack of geriatric psychiatrists in the area. Josue reports that the patient fixates on some things and then spirals out of control as far as anxiety and this is ongoing for some years. She lives with Josue. 08/03/2022 Psychiatry evaluated patient today-continue Xanax p.o. twice daily and add Ativan as needed. Dr TONY of psychiatry has started risperidone 0.25 mg p.o. twice daily which has really improved engagement in conversation as of this evening We have not been able to get an accurate home med list yet and nursing is working on it. -PT and OT evaluation pendingpatient declined PT 08/01 When ready will need to be discharged to shelter facility. Does not want intubation or mechanical ventilation per son. Was DNR for a long time till she changed it to conditional status recently. When I addressed it 08/03 pm, " I cannot think. There is something wrong." and smiles, Remains conditional code. (No intubation or mechanical ventilation). 08/03/2022 three short pauses on telemetry around 3 PM. Asymptomatic. Normotensive. D/W cardiology Dr Jerome- keep on cutaneous pacer pads on. If symptomatic with bradycardia and/or hypotensive, start dopamine and transfer to the ICU. Maintain vigilance with dopamine because the patient has underlying A. fib. I have discussed with resident on-call tonight. 08/04 care home facility placement pending. [facility] can accept once paperwork completed. Fairly stable for discharge if telemetry does not reveal significant abnormalities in the next 24 hours. Has been living with son Josue who had spoken with on phone and never met. She was thinking of becoming DNR again but is currently no intubation but full full cardiac resuscitation short of intubation Sheridan catheter ordered removed in the morning but not removed as of [email or web address] Tony psychiatryRisperdal 0.2 5 in the AM and 0.5 at bedtime now Admission and Anticipated Discharge Date Admission Date: July 28, 2022 Subjective at 9 am, interactive, smiling and making eye contact. Had just finished most of her breakfast. Eating on her own. Does not voice any complaints. Review of systems not possible as the patient does not directly answer questions Overnight around 11 PM had a 3.5-second run pause on telemetry. Per covering nurse practitioner at night, she was chatting with the resident and asymptomatic right after that. RN reports she asked for oxygen and it is put on without switching on the source. Saturations remain normal since admission on room Physical Exam Physical Exam: pleasant, Abd breathing less intense 98 to 100 % RA Does not tell me where she is, seems to recognize me, can name the correct month No audible wheezing pigmented chin, nose, upper lip, and lateral aspect of cheeks Chest : cta B/L CVS : s1, s2 tele -atrial fibrillation in the 70 s Around 11 PM at 3.5-second pause seen last night Abd lax [employer]PER[employer]OR: 4-5/5 elbow flexors, 5/5 plantar flexors Skin of ankles normal Affect cheerful but does not answer questions appropriately Results & Data Results & Data ([facility]) Vital Signs (Past 12 Hours) Vital Signs Temp Pulse Pulse Resp BP Pulse Ox O2 Del Method 08/04/22 19:45 36.5 C 76 18 132/86 97 Room Air 12/12/22 18:04 83 08/04/22 16:12 36.4 C L 75 18 134/80 98 Room Air 08/04/22 12:17 36.3 C L 79 20 132/87 96 Room Air 08/04/22 11:19 Room Air Laboratory Results 08/02/22 11:27 Aerobic Blood Culture - Preliminary Blood No growth in Aerobic bottle after 48 hours. Anaerobic Blood Culture - Preliminary No growth in Anaerobic bottle after 48 hours. 08/02/22 11:36 Aerobic Blood Culture - Preliminary Blood No growth in Aerobic bottle after 48 hours. Anaerobic Blood Culture - Preliminary No growth in Anaerobic bottle after 48 hours. 08/04/22 08/04/22 08/03/22 05:57 05:57 22:37 Hgb 9.3 L Hct 28.0 L Sodium 139 Potassium 3.7 Chloride 110 H Carbon Dioxide 22 Anion Gap 7 BUN 13 Creatinine 0.80 Est Cr Clr Drug Dosing 73.9 Est GFR ( Amer) 83.6 Est GFR (Non-Af Amer) 72.1 BUN/Creatinine Ratio 16.3 Glucose 101 H Calcium 8.1 L Total Bilirubin 0.7 AST 17 ALT 36 Alkaline Phosphatase 40 Total Protein 5.7 L Albumin 3.2 L Globulin 2.5 Albumin/Globulin Ratio 1.3 TSH 1.837 PG Care Time/CCT Total # of Minutes Spent Total Time Spent with Patient: Total time spent is greater than 50% in coordination of care (as documented) at patient's floor/unit and/or counseling patient: Coding Level of Care Code 77118 Subseq Hosp Care Lvl 3 Diagnoses Metabolic encephalopathy G93.41 UTI (urinary tract infection) N39.0 Anxiety F41.9 Macrocytic anemia D53.9 Hypernatremia E87.0 Chronic systolic CHF (congestive heart failure) I50.22 Afib I48.91 Atrial fibrillation type: unspecified Urine retention R33.9 Hypothyroidism E03.9 (1) Afib Atrial fibrillation type: unspecified Qualified Code(s): I48.91 - Unspecified atrial fibrillation
[2022-08-04] MEDS: ALPRAZolam 0.5 MG TABLET PO PRN (22:27)
[2022-08-05] MEDS: LEVOTHYROXINE SODIUM 112 MCG TABLET PO SCH (05:54)
[2022-08-05] MEDS ORDERED: risperiDONE 0.5 MG TABLET PO SCH ×2 (09:00→21:00)
[2022-08-05] MEDS: POLYETHYLENE (MIRALAX) 17 GM PACK PO SCH (09:24)
[2022-08-05] MEDS: CIPROFLOXACIN 250 MG TAB PO SCH ×2 (09:24→23:04)
[2022-08-05] MEDS: DICLOFENAC SOD 1% GEL 100 GM TUBE EXT SCH ×3 (09:24→18:41)
[2022-08-05] MEDS: DOCUSATE SODIUM 100 MG CAP PO SCH (09:28)
--- NOTE | 2022-08-05 11:53 | Psychiatric Progress Note ---
Date of Service August 05, 2022 Impression / Recommendations Impression 77 yo woman with history of anxiety and panic attacks with progressive major neurocognitive disordder and development of hallucinations following celebral ischemic resulting in geriatric psychiatric admission this summer. Improving significantly with addition of risperidone and previously responded well to Invega NUNEZ. 08/05/22: More sedation today after increased qhs dose of risperidone last night so not worth any potential additional benefits for anxiety so will reduce back to 0.25mg BID which was working well without causing sedation. No other signs of EPS nor side effects. The patient is psychiatrically stable for transfer to a longterm facility once medically appropriate for this. There is no acute indication for inpatient psychiatric hospitalization as the patient is not suicidal or homicidal; there is no evidence of psychosis nor psychiatric symptoms interfering with their ability to care for their basic needs. Psychiatric follow-up care for this patient should include ongoing management of their medications to treat anxiety and to prevent hallucinations associated with advancing dementia. (1) Major neurocognitive disorder: Plan -Decrease risperidone to 0.25mg BID Interval History Identifying Information 77 yo woman with unclear but significant past psychiatric history with recent geriatric psychiatry admission at [facility] previously on Invega admitted medically for altered mental status. Psychiatry consulted for medication recommendations. Chief Complaint "I'm tired". Review of Systems Notes slept overnight, eating her meals Subjective Subjective Patient was seen & assessed and interval progress reviewed. Slept overnight and took her risperidone. This morning slept in until 9:30am but then woke with encouragement to eat breakfast. When seeing her mid-morning she had fallen back asleep in her chair. Woke and spoke briefly but reported fatigue and desire to nap. Physical Exam Psychiatric Orientation: alert and oriented to person; + not oriented to place and + not oriented to time Apperance: appropriately dressed Eye Contact: + fair eye contact Motor Behavior: no abnormal motor movements Speech: normal rate/rhythm/volume of speech (brief) Affect: euthymic affect Mood: no depressed mood and no anxious mood Thought Process: + looseness of associations Thought Content: reality based without delusions Suicidal Thoughts: denies suicidal thoughts Homicidal Thoughts: denies homicidal thoughts Hallucinations: no auditory hallucinations and no visual hallucinations Cognition: language grossly intact; + recent memory not intact and + attention not intact Insight: + severely impaired insight Judgement: + impaired judgement Vital Signs (Past 24 Hours) Last Vital Signs Temp 36.4 C L 12/13/22 08:11 Pulse 73 08/05/22 08:11 Resp 18 08/05/22 08:11 BP 124/82 08/05/22 08:11 Pulse Ox 100 08/05/22 08:11 O2 Del Method 08/05/22 08:11 O2 Flow Rate 2 08/04/22 02:43 Results & Data ([facility]) Current Inpatient Medications Current Inpatient Medications: Current Inpatient Medications Acetaminophen (Acetaminophen 500 Mg Tab) 1,000 mg PO Q6 PRN PRN Reason: Pain Stop: 08/27/22 10:49 Last Admin: 08/04/22 04:33 Dose: 1,000 mg Alprazolam (Alprazolam 0.5 Mg Tablet) 0.5 mg PO TID PRN PRN Reason: Anxiety Stop: 08/29/22 15:33 Last Admin: 08/04/22 22:27 Dose: 0.5 mg Ciprofloxacin (Ciprofloxacin 250 Mg Tab) 250 mg PO Q12H JENNY Stop: 08/06/22 19:59 Last Admin: 08/05/22 09:24 Dose: 250 mg Diclofenac Sodium (Diclofenac Sod 1% Gel 100 Gm Tube) 2 gm EXT [id number] JENNY; Protocol Stop: 09/01/22 07:59 Last Admin: 08/05/22 09:24 Dose: 2 gm Docusate Sodium (Docusate Sodium 100 Mg Cap) 200 mg PO DAILY JENNY Stop: 08/28/22 08:59 Last Admin: 08/05/22 09:28 Dose: 200 mg Levothyroxine Sodium (Levothyroxine Sodium 112 Mcg Tablet) 112 mcg PO DAILYBB [facility] Stop: 08/29/22 15:44 Last Admin: 08/05/22 05:54 Dose: Not Given Ondansetron HCl (Ondansetron Inj 2 Mg/Ml 2 Ml Vial) 4 mg IV Q6H PRN PRN Reason: Nausea Stop: 08/27/22 10:28 Oxycodone HCl (Oxycodone Hcl Ir 5 Mg Tab (Immediate Release)) 5 mg PO Q6H PRN PRN Reason: Pain Stop: 08/13/22 15:33 Last Admin: 08/04/22 11:44 Dose: 5 mg Polyethylene Glycol (Polyethylene (Miralax) 17 Gm Pack) 17 gm PO DAILY JENNY Stop: 08/30/22 08:59 Last Admin: 12/13/22 09:24 Dose: 17 gm Risperidone (Risperidone 0.5 Mg Tablet) 0.25 mg PO BID [facility] Stop: 09/04/22 20:59 Rivaroxaban (Rivaroxaban 20 Mg Tab) 20 mg PO QDD [facility] Stop: 08/30/22 16:29 Last Admin: 08/04/22 17:13 Dose: 20 mg
--- NOTE | 2022-08-05 14:46 | Hospitalist Progress Note ---
Date of Service August 05, 2022 Assessment & Plan (1) UTI (urinary tract infection): Plan: Treated this admission with Cipro. Now resolved (2) Metabolic encephalopathy: Plan: Supportive care. She appears to have a component of toxic encephalopathy probably from Risperdal at this time. Risperdal has been discontinued today, August 05 (3) AMS (altered mental status): Plan: Suspected metabolic encephalopathy on admission. Now with suspected toxic encephalopathy (4) Acute kidney injury superimposed on chronic kidney disease: Plan: Monitor urine output and intake and output orally. Serial labs (5) Chronic, continuous use of opioids: Plan: Opioid dependent. (6) Weakness: Plan: Continue OT and PT when able (7) Hypothyroidism: Plan: Thyroid replacement therapy (8) Afib: Plan: Pauses noted on telemetry. Cardiology consultation appreciated. Digoxin, diltiazem, carvedilol on hold Plan Anticipate eventual discharge to SNF facility Admission and Anticipated Discharge Date Admission Date: July 28, 2022 Subjective The patient is exhibiting excessive somnolence. Risperdal has been discontinued. Digoxin, diltiazem, carvedilol remain on hold due to atrial fibrillation with pauses. She has completed her antibiotic course of ciprofloxacin for the UTI. Review of Systems Review of Systems: Cannot assess review of systems at this time due to somnolence Physical Exam Physical Exam: General-somnolent and unarousable. HEENT-head atraumatic and normocephalic, pupils equal and reactive to light Neck-no lymphadenopathy or thyromegaly, trachea midline Chest-clear to auscultation anteriorly. No rales wheezing or rhonchi Cardiac-irregular rhythm consistent with atrial fibrillation. Controlled rate. Abdomen-normal bowel sounds, no hepatosplenomegaly Extremities-no cyanosis, clubbing, or edema Neuro-cannot assess due to somnolence Psych-cannot assess due to somnolence Results & Data Results & Data ([facility]) Vital Signs (Past 12 Hours) Vital Signs Temp Pulse Resp BP Pulse Ox O2 Del Method 08/05/22 12:34 36.4 C L 73 20 131/66 100 Room Air 08/05/22 08:00 Room Air 08/05/22 08:11 36.4 C L 73 18 124/82 100 Room Air Laboratory Results 08/03/22 22:37 12/12/22 05:57 PG Care Time/CCT Total # of Minutes Spent Total Time Spent with Patient: Total time spent is greater than 50% in coordination of care (as documented) at patient's floor/unit and/or counseling patient: Coding Level of Care Code 61487 Subseq Hosp Care Lvl 3 Diagnoses UTI (urinary tract infection) N39.0 Metabolic encephalopathy G93.41 AMS (altered mental status) R41.82 Acute kidney injury superimposed on chronic kidney disease N17.9; N18.9 Chronic, continuous use of opioids F11.90 Weakness R53.1 Hypothyroidism E03.9 Afib I48.91 Atrial fibrillation type: unspecified (1) Afib Atrial fibrillation type: unspecified Qualified Code(s): I48.91 - Unspecified atrial fibrillation
[2022-08-05] MEDS: RIVAROXABAN 20 MG TAB PO SCH (18:41)
[2022-08-05] MEDS: SODIUM CHLORIDE 0.9% 1000ML 1,000 ML IV SCH (20:52)
[2022-08-06] MEDS: LEVOTHYROXINE SODIUM 112 MCG TABLET PO SCH (06:00)
[2022-08-06] MEDS: DICLOFENAC SOD 1% GEL 100 GM TUBE EXT SCH ×3 (08:33→15:30)
[2022-08-06] MEDS: CIPROFLOXACIN 250 MG TAB PO SCH (08:33)
[2022-08-06] MEDS: POLYETHYLENE (MIRALAX) 17 GM PACK PO SCH (08:34)
[2022-08-06] MEDS: DOCUSATE SODIUM 100 MG CAP PO SCH (08:34)
[2022-08-06] MEDS: SODIUM CHLORIDE 0.9% 1000ML 1,000 ML IV SCH ×2 (08:45→21:06)
--- NOTE | 2022-08-06 11:58 | Hospitalist Progress Note ---
Date of Service August 06, 2022 Assessment & Plan (1) UTI (urinary tract infection): Plan: Treated this admission with Cipro. Now resolved (2) Metabolic encephalopathy: Plan: Supportive care. She appears to have had a component of toxic encephalopathy probably from Risperdal at this time. Risperdal was discontinued on August 05 (3) AMS (altered mental status): Plan: Suspected metabolic encephalopathy on admission. Now with suspected toxic encephalopathy from Risperdal (4) Acute kidney injury superimposed on chronic kidney disease: Plan: Monitor urine output and intake and output orally. Serial labs (5) Chronic, continuous use of opioids: Plan: Opioid dependent. (6) Weakness: Plan: Continue OT and PT when able (7) Hypothyroidism: Plan: Thyroid replacement therapy (8) Afib: Plan: Pauses noted on telemetry. Cardiology consultation to assess for possible permanent pacemaker. Digoxin, diltiazem, carvedilol on hold Plan Anticipate eventual discharge to SNF facility Admission and Anticipated Discharge Date Admission Date: July 28, 2022 Subjective Awake but nonverbal with me. Xarelto placed on hold in case pacemaker insertion this admission. She has atrial fibrillation with occasional pauses. Digoxin, diltiazem, carvedilol are on hold Risperdal was discontinued yesterday, August 05, because of somnolence. Review of Systems Review of Systems: Cannot assess review of systems at this time due to somnolence Physical Exam Physical Exam: General-somnolent and unarousable. HEENT-head atraumatic and normocephalic, pupils equal and reactive to light Neck-no lymphadenopathy or thyromegaly, trachea midline Chest-clear to auscultation anteriorly. No rales wheezing or rhonchi Cardiac-irregular rhythm consistent with atrial fibrillation. Controlled rate. Abdomen-normal bowel sounds, no hepatosplenomegaly Extremities-no cyanosis, clubbing, or edema Neuro-unable to assess Psych-unable to assess Results & Data Results & Data ([facility]) Vital Signs (Past 12 Hours) Vital Signs Temp Pulse Pulse Resp BP BP Pulse Ox 08/06/22 11:07 36.3 C L 82 20 142/66 H 96 08/06/22 09:11 87 08/06/22 08:00 08/06/22 05:59 36.6 C 95 H 18 149/88 H 99 O2 Del Method 08/06/22 11:07 Room Air 08/06/22 09:11 08/06/22 08:00 Room Air 08/06/22 05:59 Room Air Laboratory Results 08/03/22 22:37 08/04/22 05:57 PG Care Time/CCT Total # of Minutes Spent Total Time Spent with Patient: Total time spent is greater than 50% in coordination of care (as documented) at patient's floor/unit and/or counseling patient: Coding Level of Care Code 78334 Subseq Hosp Care Lvl 3 Diagnoses UTI (urinary tract infection) N39.0 Metabolic encephalopathy G93.41 AMS (altered mental status) R41.82 Acute kidney injury superimposed on chronic kidney disease N17.9; N18.9 Chronic, continuous use of opioids F11.90 Weakness R53.1 Hypothyroidism E03.9 Afib I48.91 Atrial fibrillation type: unspecified (1) Afib Atrial fibrillation type: unspecified Qualified Code(s): I48.91 - Unspecified atrial fibrillation
--- NOTE | 2022-08-06 13:40 | Cardiology Progress Note ---
Date of Service August 06, 2022 Assessment & Plan (1) Afib: (2) Anticoagulated: (3) Bradycardia: Plan 1. Atrial fibrillation: She remains in atrial fibrillation. For the most part the rate is reasonably well controlled although there are times when the heart rate is a little bit low and times when it is over 100 even though she is not very active. For now I think this is acceptable (she is no longer on AV maddy blocking medications). In the future if she recovers and becomes more active her heart rate will probably need better control, especially since she had a rate related cardiomyopathy in the past. For now I would keep her off of her AV maddy blocking medications and observe her rhythm. 2. Anticoagulation: She should remain on anticoagulation for stroke prevention, currently she is taking Xarelto and I would continue it. 3. Bradycardia: She has very brief periods of bradycardia (less than 10 seconds for the most part) for reasons which are not clear, sometimes associate with pauses between 3 and 4 seconds in duration. It sounds as though these are not associated with sleep apnea. Overall her heart rate is not slow, historically she has had rapid rates during atrial fibrillation. Conceivably she will need a pacemaker if we need better rate control and she continues to have pauses. I would not do it now. Admission and Anticipated Discharge Date Admission Date: July 28, 2022 Subjective The patient is minimally responsive today, she does open her eyes and seems aware of her surroundings but does not interact. Laying supine in bed. Physical Exam Physical Exam: Constitutional:In no distress. Pulmonary: Clear to auscultation bilaterally. Cardiac: Irregular rhythm with no murmur, gallop or rub. Abdomen: Soft, nontender with normal bowel sounds. Extremities: No edema. Skin: No rash, ecchymoses or petechiae. Facial discoloration is present. Results & Data ([facility]) Vital Signs (Past 12 Hours) Vital Signs Temp Pulse Pulse Resp BP BP Pulse Ox 08/06/22 11:07 36.3 C L 82 20 142/66 H 96 08/06/22 09:11 87 08/06/22 08:00 08/06/22 05:59 36.6 C 95 H 18 149/88 H 99 O2 Del Method 08/06/22 11:07 Room Air 08/06/22 09:11 08/06/22 08:00 Room Air 08/06/22 05:59 Room Air Laboratory Results Intake and Output 08/05/22 08/06/22 08/06/22 22:59 06:59 14:59 Intake Total 1000 / 1000 Output Total 800 / 1001 200 / 1001 Balance -800 / -1001 -200 / -1001 1000 / 1000 Intake: IV 1000 / 1000 Sodium Chloride 0.9% 1000ML 1, 1000 / 1000 000 ml @ 80 mls/hr IV .[id number] JENNY Rx#:[id number] Output: Urine Amount (Catheter) 800 / 1000 200 / 1000 Sheridan/Indwelling 800 / 1000 200 / 1000 Other: Other Intake Source npo # Unmeasured Voids 1 Diagnostic Findings Telemetry: Atrial fibrillation, average heart rate 80 to 90 bpm, occasionally over 100 and periods of bradycardia with rare pauses between 3 and 4 seconds. No evidence of symptoms. PG Care Time/CCT Total # of Minutes Spent Total Time Spent with Patient: Total time spent is greater than 50% in coordination of care (as documented) at patient's floor/unit and/or counseling patient: Coding Level of Care Code 91970 Subseq Hosp Care Lvl 3 Diagnoses Afib I48.91 Atrial fibrillation type: unspecified Anticoagulated Z79.01 Bradycardia R00.1 (1) Afib Atrial fibrillation type: unspecified Qualified Code(s): I48.91 - Unspecified atrial fibrillation
[2022-08-06] MEDS: RIVAROXABAN 20 MG TAB PO SCH (15:29)
[2022-08-06] MEDS: ACETAMINOPHEN 500 MG TAB PO PRN ×2 (16:46→21:00)
[2022-08-07] MEDS ORDERED: MELATONIN 3 MG TAB PO PRN (01:37)
[2022-08-07] MEDS: ACETAMINOPHEN 500 MG TAB PO PRN ×2 (05:29→11:37)
[2022-08-07] MEDS: LEVOTHYROXINE SODIUM 112 MCG TABLET PO SCH (05:30)
[2022-08-07] MEDS: ALPRAZolam 0.5 MG TABLET PO PRN ×2 (05:51→21:21)
[2022-08-07] MEDS: SODIUM CHLORIDE 0.9% 1000ML 1,000 ML IV SCH ×2 (08:32→20:55)
[2022-08-07] MEDS: DOCUSATE SODIUM 100 MG CAP PO SCH (08:33)
[2022-08-07] MEDS: DICLOFENAC SOD 1% GEL 100 GM TUBE EXT SCH ×3 (08:33→15:42)
[2022-08-07] MEDS: POLYETHYLENE (MIRALAX) 17 GM PACK PO SCH (08:33)
--- NOTE | 2022-08-07 08:41 | Electrocardiogram Report ---
Test Reason : Blood Pressure : / mmHG Vent. Rate : 100 BPM Atrial Rate : 416 BPM P-R Int : 000 ms QRS Dur : 098 ms QT Int : 348 ms P-R-T Axes : 000 -35 226 degrees QTc Int : 448 ms Poor data quality, interpretation may be adversely affected Atrial fibrillation with premature ventricular or aberrantly conducted complexes Left axis deviation Old Inferior infarct Low voltage QRS Diffuse Minor Nonspecific T wave abnormality Abnormal ECG When compared with ECG of 04-AUG-2022 00:02, No significant change Confirmed by Jose Beasley ([id number]) on 08/07/2022 8:40:46 AM Referred By: REFERRED SELF Confirmed By:Jose Beasley
[2022-08-07] MEDS: RIVAROXABAN 20 MG TAB PO SCH (15:42)
--- NOTE | 2022-08-07 17:08 | Hospitalist Progress Note ---
Date of Service August 07, 2022 Assessment & Plan (1) UTI (urinary tract infection): Plan: Treated this admission with Cipro. Now resolved (2) Major neurocognitive disorder: Plan: unspecified by psychiatry Has been [facility] now closed inpatient psychiatry facility in [place], [place] in [place] for some weeks this year. Institutional care post SNF seems best option. (3) Metabolic encephalopathy: Plan: Supportive care. Agitation and somnolence come and go Risperdal was discontinued on August 05. Calm so far (4) Acute kidney injury superimposed on chronic kidney disease: Plan: Monitor urine output and intake and output orally. Serial labs (5) Chronic, continuous use of opioids: Plan: Opioid dependent. Oxycodone being used sparingly- unknown where her pain is- patient c/o abd pain mostly including today (6) Weakness: Plan: Continue OT and PT when able Wsa asleep today at PT visit Up in chair daily - RN told Urged nursing to request PT to return tomorrow if this recurs. (7) Hypothyroidism: Plan: Thyroid replacement therapy (8) Afib: Plan: Pauses noted on telemetry. 08/07 at 901 and 910- two pauses 3.5 sec or less Cardiology consultation to assess for possible permanent pacemaker 08/06- they opined no need at the moment. Digoxin, diltiazem, carvedilol on hold since admission Plan Anticipate eventual discharge to SNF facility I have informed son Josue today as well as case resource manager patient ready for SNF transfer. Admission and Anticipated Discharge Date Admission Date: July 28, 2022 Subjective at 1520 h "give me something to sleep". " I am not asking to ." c/o left sided abd pain and wants a laxative as well Agitation comes and goes per nursing. Lucid some time, demanding and agitated others. Has needed one on one sitter last two days Slept fine last night I cannot see well- but when told it has snowed, looks out the window and says it is beautiful, Physical Exam Physical Exam: obese pleasant, holds by hand and brings to her cheek aware she is " in a hospital in [place]" When asked why she is here . " To ". H/n : dry tongue chest : CTA CVS : s1 s2 , irregular Abd : non tender SENIOR DATABASE ADMINISTRATOR : grossly intact motor function- does not consistently follow commands to test toe muscles and elbow M power. Psych : incongruent affect as usual Results & Data Results & Data ([facility]) Vital Signs (Past 12 Hours) Vital Signs Temp Pulse Resp BP Pulse Ox O2 Del Method 08/07/22 15:31 36.5 C 82 18 152/87 H 98 Room Air 08/07/22 10:53 36.4 C L 75 20 161/89 H 96 Room Air 08/07/22 08:00 Room Air 08/07/22 07:05 36.4 C L 78 18 127/77 96 Room Air Laboratory Results 08/02/22 11:36 Aerobic Blood Culture - Final Blood No growth in Aerobic bottle after 5 days. Anaerobic Blood Culture - Final No growth in Anaerobic bottle after 5 days. 08/02/22 11:27 Aerobic Blood Culture - Final Blood No growth in Aerobic bottle after 5 days. Anaerobic Blood Culture - Final No growth in Anaerobic bottle after 5 days. Medications Administered Home Medications Medication Instructions Recorded Confirmed Last Taken levothyroxine 112 mcg tablet 112 mcg PO QAM 11/30/18 04/06/22 04/05/22 (Synthroid) digoxin 125 mcg (0.125 mg) tablet 125 mcg PO PM 07/07/19 04/06/22 04/05/22 (Lanoxin) diltiazem HCl 180 mg 180 mg PO QAM 12/11/19 04/06/22 04/05/22 capsule,extended release 24 hr (Cartia XT) lisinopril 40 mg tablet (Zestril) 40 mg PO QAM 12/11/19 04/06/22 04/05/22 carvedilol 25 mg tablet (Coreg) 25 mg PO BID 04/22/20 04/06/22 04/05/22 acetaminophen 500 mg tablet 1,000 mg PO Q6 PRN Pain 04/30/21 04/06/22 10/23/21 (Tylenol Extra Strength) rivaroxaban 20 mg tablet (Xarelto) 20 mg PO PM 06/03/21 04/06/22 04/05/22 benzonatate 100 mg capsule 100 mg PO TID PRN Cough 06/20/21 04/06/22 10/23/21 duloxetine 30 mg capsule,delayed 30 mg PO DAILY #30 caps 11/05/21 04/06/22 04/05/22 release (Cymbalta) alprazolam 0.5 mg tablet 0.5 mg PO TID PRN Anxiety 12/15/21 04/06/22 04/05/22 cyproheptadine 2 mg/5 mL oral syrup 2 mg PO DAILY PRN ALLERGIES 12/15/21 Unknown dexamethasone 0.5 mg/5 mL oral 1 mg PO DAILY 12/15/21 04/06/22 04/05/22 solution docusate sodium 100 mg capsule 200 mg PO DAILY 12/15/21 04/06/22 04/05/22 (Colace) melatonin 1 mg tablet 1 mg PO HS PRN Sleep 12/15/21 04/06/22 Unknown ondansetron 4 mg disintegrating 4 mg PO BID PRN nausea and vomiting 12/15/21 04/06/22 Unknown tablet clindamycin HCl 150 mg capsule 150 mg PO QID 04/06/22 04/06/22 04/05/22 furosemide 40 mg tablet 40 mg PO DAILY 04/06/22 04/06/22 04/05/22 oxycodone 5 mg tablet 5 mg PO Q6H PRN Pain 04/06/22 04/06/22 Unknown Active Medications Generic Name Dose Route Start Last Admin Trade Name Freq PRN Reason Stop Dose Admin Acetaminophen 1,000 mg 07/28/22 10:50 08/07/22 11:37 Acetaminophen 500 Mg Tab PO 08/27/22 10:49 1,000 mg Q6 PRN Administration Pain Alprazolam 0.5 mg 07/30/22 15:34 08/07/22 05:51 Alprazolam 0.5 Mg Tablet PO 08/29/22 15:33 0.5 mg TID PRN Administration Anxiety Diclofenac Sodium 2 gm 08/02/22 08:00 08/07/22 15:42 Diclofenac Sod 1% Gel 100 Gm Tube EXT 09/01/22 07:59 2 gm [id number] JENNY Administration Protocol Docusate Sodium 200 mg 07/29/22 09:00 08/07/22 08:33 Docusate Sodium 100 Mg Cap PO 08/28/22 08:59 Not Given DAILY JENNY Sodium Chloride 1,000 mls @ 80 mls/hr 08/05/22 19:15 08/07/22 08:32 Nss 1000ml IV 09/04/22 19:14 80 mls/hr .[id number] JENNY Administration Levothyroxine Sodium 112 mcg 07/30/22 16:30 08/07/22 05:30 Levothyroxine Sodium 112 Mcg Tablet PO 08/29/22 15:44 112 mcg DAILYBB JENNY Administration Oxycodone HCl 5 mg 07/30/22 15:34 08/04/22 11:44 Oxycodone Hcl Ir 5 Mg Tab (Immediate Release) PO 08/13/22 15:33 5 mg Q6H PRN Administration Pain Polyethylene Glycol 17 gm 07/31/22 09:00 08/07/22 08:33 Polyethylene (Miralax) 17 Gm Pack PO 08/30/22 08:59 Not Given DAILY JENNY Rivaroxaban 20 mg 07/31/22 16:30 08/07/22 15:42 Rivaroxaban 20 Mg Tab PO 08/30/22 16:29 20 mg QDD JENNY Administration PG Care Time/CCT Total # of Minutes Spent Total Time Spent with Patient: Total time spent is greater than 50% in coordination of care (as documented) at patient's floor/unit and/or counseling patient: Coding Diagnoses UTI (urinary tract infection) N39.0 Major neurocognitive disorder F03.90 Metabolic encephalopathy G93.41 Acute kidney injury superimposed on chronic kidney disease N17.9; N18.9 Chronic, continuous use of opioids F11.90 Weakness R53.1 Hypothyroidism E03.9 Afib I48.91 Atrial fibrillation type: unspecified (1) Afib Atrial fibrillation type: unspecified Qualified Code(s): I48.91 - Unspecified atrial fibrillation
[2022-08-07 18:45] LABS: Albumin Globulin Ratio 1.3 (0.9-2); Albumin Level 3.4 gm/dl (3.4-5.0); BUN Creatinine Ratio 15.6 (10-20); Bilirubin,Total 0.6 mg/dl (0.2-1.0); Calcium 9.1 mg/dl (8.5-10.1); Creatinine Clr Calc Pharmacy 92.9 ml/min; Est GFR (African American) 101.2 ml/min; Est GFR (Non-African American) 87.3 ml/min; Globulin 2.7 gm/dl (2.5-4.0); Potassium 3.7 mmol/L (3.5-5.1); Total Protein 6.1 gm/dl (6.0-8.3)
[2022-08-07] MEDS: MELATONIN 3 MG TAB PO SCH (20:55)
[2022-08-07] MEDS ORDERED: OLANZapine 10 MG/2.1 ML SDV IM STA (21:56)
[2022-08-07] MEDS ORDERED: LORazepam 0.25 MG in SYRINGE 0 ML IV ONE (22:00)
[2022-08-08] MEDS ORDERED: OLANZapine 10 MG/2.1 ML SDV IM STA ×2 (03:52→12:56)
[2022-08-08] MEDS: LEVOTHYROXINE SODIUM 112 MCG TABLET PO SCH ×2 (06:21→06:23)
[2022-08-08] MEDS ORDERED: LORazepam 0.25 MG in SYRINGE 0 ML IV STA (08:22)
--- NOTE | 2022-08-08 08:34 | Hospitalist Progress Note ---
Date of Service August 08, 2022 Assessment & Plan (1) Major neurocognitive disorder: Plan: dementia with psychosis (Has been in a now closed inpatient psychiatry facility in [place], [place] in [place] for some weeks this year. Dx unknown) Institutional care post SNF seems best option. 08/08 Risperdal stopped two days ago for concerns about sedation- not by psychiatry . Restarted D/W Dr Faria as I felt the [facility] psychiatry unit would be more appropriate than a jail facility. However very hard to find [facility] psych beds and with her medical conditions are likely to decline her. At this time see how she does on restarting respite all. Zyprexa oral Ativan as needed in the meantime. on for psychiatry over this weekend who will also see patient. We have to stabilize her on psych meds and keep looking for jail facility. Will nto take po med- on Xanax tid prn Given lorazepam 0.25 mg iv for psyhcotic (2) UTI (urinary tract infection): Plan: Treated this admission with Cipro. Now resolved (3) Acute kidney injury superimposed on chronic kidney disease: Plan: shara dmit Considerable tachycardia with dry oral mucosa today in the setting of psychosis Recheck CMP s as po intake erratic and looks hypovolemic this am (4) Chronic, continuous use of opioids: Plan: Opioid dependent. Oxycodone being used sparingly- unknown where her pain is- patient c/o abd pain mostly including today (5) Weakness: Plan: w general debilitation :continue OT and PT when able (6) Hypothyroidism: Plan: Thyroid replacement therapy TSH normal this admission 1.4 (7) Afib: Plan: Pauses noted on telemetry. 08/07 at 901 and 910- two pauses 3.5 sec or less 08/08- no furtehr pauses (Cardiology consultation to assess for possible permanent pacemaker 08/06- they opined no need at the moment. Digoxin, diltiazem, carvedilol on hold since admission) (8) Urine retention: Plan: On admission. Sheridan was removed to 3 days ago but retained again. To stay indwelling Likely from bladder flaccidity due to opioid use for a long time (9) Anemia: Plan: This is new since since admission 12 . Hemoglobin was 12 in March. It has dropped over 2 g during this hospital stay. Check stool guaiac. Plan Anticipate eventual discharge to SNF facility I had informed son Josue 08/07 as well as caseworker patient ready for SNF transfer. The return of psychotic symptoms is a setback 08/08 psych med optimising is plan over weekend so a SNF transfer may proceed next week. No pauses seen on tele or bradycardia last 24 h, is medically optimised. No change in psych meds without conferring with Psychiatry Admission and Anticipated Discharge Date Admission Date: July 28, 2022 Subjective at 0810, came to bedside - patient breathing at 50, upper airway wheezing Got two doses Zyprexa overnight 2156 and 3 am. Risperdal stopped two days ago. Patient not interacting much for ROS Physical Exam Physical Exam: obese, awake, eyes closed, follows some commands, I cannot when asked to show her tongue, " It is dry" 96%RA H/n : dry tongue, hyperpigmented cheeks and forehead chest : CTA CVS : s1 s2 , irregular, tele 120s Abd : non tender INDUSTRIAL WASTE TREATMENT TECHNICIAN : moves arms, 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 in exam Psych : incongruent affect as usual Results & Data Results & Data ([facility]) Vital Signs (Past 12 Hours) Vital Signs Temp Pulse Pulse Resp BP Pulse Ox O2 Del Method 08/08/22 07:39 36.7 C 108 H 26 H 152/84 H 97 Room Air 08/08/22 03:00 36.3 C L 94 H 22 175/85 H 94 Room Air 08/08/22 00:00 83 08/07/22 22:45 36.5 C 88 20 148/94 H 94 Room Air Laboratory Results Abnormal lab results 08/07/22 Range/Units 18:09 Chloride 114 H (98-107) mmol/L Glucose 115 H (70-99(Fasting)) mg/dl Medications Administered Home Medications Medication Instructions Recorded Confirmed Last Taken levothyroxine 112 mcg tablet 112 mcg PO QAM 11/30/18 04/06/22 04/05/22 (Synthroid) digoxin 125 mcg (0.125 mg) tablet 125 mcg PO PM 07/07/19 04/06/22 04/05/22 (Lanoxin) diltiazem HCl 180 mg 180 mg PO QAM 12/11/19 04/06/22 04/05/22 capsule,extended release 24 hr (Cartia XT) lisinopril 40 mg tablet (Zestril) 40 mg PO QAM 12/11/19 04/06/22 04/05/22 carvedilol 25 mg tablet (Coreg) 25 mg PO BID 04/22/20 04/06/22 04/05/22 acetaminophen 500 mg tablet 1,000 mg PO Q6 PRN Pain 04/30/21 04/06/22 10/23/21 (Tylenol Extra Strength) rivaroxaban 20 mg tablet (Xarelto) 20 mg PO PM 06/03/21 04/06/22 04/05/22 benzonatate 100 mg capsule 100 mg PO TID PRN Cough 06/20/21 04/06/22 10/23/21 duloxetine 30 mg capsule,delayed 30 mg PO DAILY #30 caps 11/05/21 04/06/22 04/05/22 release (Cymbalta) alprazolam 0.5 mg tablet 0.5 mg PO TID PRN Anxiety 12/15/21 04/06/22 04/05/22 cyproheptadine 2 mg/5 mL oral syrup 2 mg PO DAILY PRN ALLERGIES 12/15/21 04/06/22 Unknown dexamethasone 0.5 mg/5 mL oral 1 mg PO DAILY 12/15/21 04/06/22 04/05/22 solution docusate sodium 100 mg capsule 200 mg PO DAILY 12/15/21 04/06/22 04/05/22 (Colace) melatonin 1 mg tablet 1 mg PO HS PRN Sleep 12/15/21 04/06/22 Unknown ondansetron 4 mg disintegrating 4 mg PO BID PRN nausea and vomiting 12/15/21 04/06/22 Unknown tablet clindamycin HCl 150 mg capsule 150 mg PO QID 04/06/22 04/06/22 04/05/22 furosemide 40 mg tablet 40 mg PO DAILY 04/06/22 04/06/22 04/05/22 oxycodone 5 mg tablet 5 mg PO Q6H PRN Pain 04/06/22 04/06/22 Unknown Active Medications Generic Name Dose Route Start Last Admin Trade Name Freq PRN Reason Stop Dose Admin Acetaminophen 1,000 mg 07/28/22 10:50 08/07/22 11:37 Acetaminophen 500 Mg Tab PO 08/27/22 10:49 1,000 mg Q6 PRN Administration Pain Alprazolam 0.5 mg 07/30/22 15:34 08/07/22 21:21 Alprazolam 0.5 Mg Tablet PO 08/29/22 15:33 0.5 mg TID PRN Administration Anxiety Diclofenac Sodium 2 gm 08/02/22 08:00 08/07/22 15:42 Diclofenac Sod 1% Gel 100 Gm Tube EXT 09/01/22 07:59 2 gm [id number] JENNY Administration Protocol Docusate Sodium 200 mg 07/29/22 09:00 08/07/22 08:33 Docusate Sodium 100 Mg Cap PO 08/28/22 08:59 Not Given DAILY JENNY Sodium Chloride 1,000 mls @ 80 mls/hr 08/05/22 19:15 08/07/22 20:55 Nss 1000ml IV 09/04/22 19:14 80 mls/hr .[id number] JENNY Administration Levothyroxine Sodium 112 mcg 07/30/22 16:30 08/08/22 06:23 Levothyroxine Sodium 112 Mcg Tablet PO 08/29/22 15:44 Not Given DAILYBB JENNY Melatonin 3 mg 08/07/22 21:00 08/07/22 20:55 Melatonin 3 Mg Tab PO 09/06/22 20:59 3 mg HS JENNY Administration Oxycodone HCl 5 mg 07/30/22 15:34 08/04/22 11:44 Oxycodone Hcl Ir 5 Mg Tab (Immediate Release) PO 08/13/22 15:33 5 mg Q6H PRN Administration Pain Polyethylene Glycol 17 gm 07/31/22 09:00 08/07/22 08:33 Polyethylene (Miralax) 17 Gm Pack PO 08/30/22 08:59 Not Given DAILY JENNY Rivaroxaban 20 mg 07/31/22 16:30 08/07/22 15:42 Rivaroxaban 20 Mg Tab PO 08/30/22 16:29 20 mg QDD JENNY Administration PG Care Time/CCT Total # of Minutes Spent Total Time Spent with Patient: Total time spent is greater than 50% in coordination of care (as documented) at patient's floor/unit and/or counseling patient: Coding Level of Care Code 35450 Subseq Hosp Care Lvl 3 Diagnoses Major neurocognitive disorder F03.90 UTI (urinary tract infection) N39.0 Acute kidney injury superimposed on chronic kidney disease N17.9; N18.9 Chronic, continuous use of opioids F11.90 Weakness R53.1 Hypothyroidism E03.9 Afib I48.91 Atrial fibrillation type: unspecified Urine retention R33.9 Anemia D64.9 Comment spent 15 minutes additional time conferring with psychiatry re plan (1) Afib Atrial fibrillation type: unspecified Qualified Code(s): I48.91 - Unspecified atrial fibrillation
[2022-08-08] MEDS: DICLOFENAC SOD 1% GEL 100 GM TUBE EXT SCH ×3 (08:37→16:45)
--- NOTE | 2022-08-08 09:02 | Electrocardiogram Report ---
Test Reason : Blood Pressure : / mmHG Vent. 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
[2022-08-08] MEDS: SODIUM CHLORIDE 0.9% 1000ML 1,000 ML IV SCH ×2 (10:33→19:01)
[2022-08-08 11:32] LABS: Hematocrit (blood only) 31.3 % (34.1-44.9); Hemoglobin 10.2 g/dl (12.0-16.0); Mean Corpuscular Hemoglobin 33.7 pg (25.0-34.0); Mean Corpuscular Hgb Conc 32.6 g/dL (32.0-36.0); Mean Corpuscular Volume 103.3 fL (80.0-100.0); Nucleated RBC # (auto) 0.03 K/uL (0-0); Nucleated RBC % (auto) 0.4 %; Platelet Count 227 K/uL (130-400); RDW Coefficient of Variation 15.5 % (11.5-14.5); RDW Standard Deviation 57.6 fL (36.4-46.3); Red Blood Count 3.03 M/uL (3.93-5.22)
[2022-08-08 11:56] LABS: Albumin Globulin Ratio 1.2 (0.9-2); Albumin Level 3.6 gm/dl (3.4-5.0); BUN Creatinine Ratio 13.8 (10-20); Bilirubin,Total 0.7 mg/dl (0.2-1.0); Calcium 9.2 mg/dl (8.5-10.1); Creatinine Clr Calc Pharmacy 91.6 ml/min; Est GFR (African American) 100.7 ml/min; Est GFR (Non-African American) 86.8 ml/min; Globulin 3.1 gm/dl (2.5-4.0); Potassium 3.8 mmol/L (3.5-5.1); Total Protein 6.7 gm/dl (6.0-8.3)
--- NOTE | 2022-08-08 12:30 | Psychiatric Progress Note ---
Date of Service August 08, 2022 Impression / Recommendations Impression 77 yo woman with history of anxiety and panic attacks with progressive major neurocognitive disorder and development of hallucinations following cerebral ischemic resulting in geriatric psychiatric admission this summer. Improving significantly with addition of risperidone and previously responded well to Invega NUNEZ. 08/08/22: Had responded well to risperidone but it was discontinued after 08/05/22 and she decompensated last night with increased paranoia and agitation. Would restart risperidone for suspected delirium superimposed on major neurocognitive disorder. Discussed with Dr. Moya (1) Major neurocognitive disorder: Plan -1-on-1 prn at hospitalist discretion for agitation -Agree with restart of risperidone 0.25mg BID -Continue discontinuation of Xanax in favor of ativan 0.5mg daily prn po or IV -Consider melatonin 3mg qhs if she'll take po medications -Continue medical workup to rule out and treat any underlying causes contributing to potential delirium, avoid or limit use of deliriogenic medications (benzodiazepines, opioids, anticholinergics) -Continue with delirium prevention measures: raising blinds during the day, closing at night, frequent re-orientation, contact with family/friends, explaining procedures/nursing care measures prior to physical contact, correct any hearing and visual impairments -For behavioral emergency: olanzapine 5 mg IM x 1 (DO NOT exceed 20mg per 24 hours, check EKG if IM dose required, NEVER co-administer with IM or IV benzodiazepines). Interval History Identifying Information 77 yo woman with unclear but significant past psychiatric history with recent geriatric psychiatry admission at [facility] previously on Invega admitted medically for altered mental status. Psychiatry consulted for medication recommendations. Chief Complaint mute Review of Systems Notes yelling overnight, poor sleep, decreased po intake today Subjective Subjective Patient was seen & assessed and interval progress reviewed. Her risperidone was discontinued so had not received since 08/05/22 but restarted by hospitalist this morning. Last night required IM zyprexa due to paranoia and this morning was refusing medications. On mid-day assessment she was lying in bed with eyes closed, doing odd belly breathing and throat wheezing and would not respond to attempt to engage with her nor open her eyes even when her son arrived and attempted to speak with her. Physical Exam Psychiatric Orientation: alert and + guarded Apperance: + disheveled Eye Contact: + poor eye contact Motor Behavior: no abnormal motor movements Speech: + mute Affect: + flat affect Cognition: + attention not intact Insight: + severely impaired insight Judgement: + severely impaired judgement Vital Signs (Past 24 Hours) Last Vital Signs Temp 36.7 C 08/08/22 12:13 Pulse 123 H 08/08/22 12:13 Resp 55 H 08/08/22 12:13 BP 141/95 H 08/08/22 12:13 Pulse Ox 97 08/08/22 12:13 O2 Del Method 08/08/22 12:13 O2 Flow Rate 2 08/04/22 02:43 Results & Data ([facility]) Laboratory Results Laboratory Results - last 24 hr 08/07/22 08/08/22 08/08/22 18:09 11:10 11:10 WBC 7.00 RBC 3.03 L Hgb 10.2 L Hct 31.3 L MCV 103.3 H MCH 33.7 MCHC 32.6 RDW Std Deviation 57.6 H RDW Coeff of [place] 15.5 H Plt Count 227 MPV 10.0 Absolute Nucleated RBC 0.03 H Nucleated RBC % (auto) 0.4 Sodium 142 142 Potassium 3.7 3.8 Chloride 114 H 114 H Carbon Dioxide 21 19 L Anion Gap 7 9 BUN 10 9 Creatinine 0.64 0.65 Est Cr Clr Drug Dosing 92.9 91.6 Est GFR ( Amer) 101.2 100.7 Est GFR (Non-Af Amer) 87.3 86.8 BUN/Creatinine Ratio 15.6 13.8 Glucose 115 H 100 H Calcium 9.1 9.2 Magnesium 2.0 Total Bilirubin 0.6 0.7 AST 16 17 ALT 29 28 Alkaline Phosphatase 45 45 Total Protein 6.1 6.7 Albumin 3.4 3.6 Globulin 2.7 3.1 Albumin/Globulin Ratio 1.3 1.2 Current Inpatient Medications Current Inpatient Medications: Current Inpatient Medications Acetaminophen (Acetaminophen 500 Mg Tab) 1,000 mg PO Q6 PRN PRN Reason: Pain Stop: 08/27/22 10:49 Last Admin: 08/07/22 11:37 Dose: 1,000 mg Alprazolam (Alprazolam 0.5 Mg Tablet) 0.5 mg PO TID PRN PRN Reason: Anxiety Stop: 08/29/22 15:33 Last Admin: 08/07/22 21:21 Dose: 0.5 mg Diclofenac Sodium (Diclofenac Sod 1% Gel 100 Gm Tube) 2 gm EXT [id number] [facility]; Protocol Stop: 09/01/22 07:59 Last Admin: 08/08/22 11:49 Dose: 2 gm Docusate Sodium (Docusate Sodium 100 Mg Cap) 200 mg PO DAILY [facility] Stop: 08/28/22 08:59 Last Admin: 08/07/22 08:33 Dose: Not Given Sodium Chloride (Nss 1000ml) 1,000 mls @ 80 mls/hr IV .[id number] [facility] Stop: 09/04/22 19:14 Last Infusion: 08/08/22 12:22 Dose: 150 mls/hr Levothyroxine Sodium (Levothyroxine Sodium 112 Mcg Tablet) 112 mcg PO DAILYBB [facility] Stop: 08/29/22 15:44 Last Admin: 08/08/22 06:23 Dose: Not Given Melatonin (Melatonin 3 Mg Tab) 3 mg PO HS [facility] Stop: 09/06/22 20:59 Last Admin: 08/07/22 20:55 Dose: 3 mg Ondansetron HCl (Ondansetron Inj 2 Mg/Ml 2 Ml Vial) 4 mg IV Q6H PRN PRN Reason: Nausea Stop: 08/27/22 10:28 Oxycodone HCl (Oxycodone Hcl Ir 5 Mg Tab (Immediate Release)) 5 mg PO Q6H PRN PRN Reason: Pain Stop: 08/13/22 15:33 Last Admin: 08/04/22 11:44 Dose: 5 mg Polyethylene Glycol (Polyethylene (Miralax) 17 Gm Pack) 17 gm PO DAILY JENNY Stop: 08/30/22 08:59 Last Admin: 08/07/22 08:33 Dose: Not Given Risperidone (Risperidone 0.5 Mg Tablet) 0.25 mg PO BID [facility] Stop: 09/07/22 08:59 Rivaroxaban (Rivaroxaban 20 Mg Tab) 20 mg PO QDD [facility] Stop: 08/30/22 16:29 Last Admin: 08/07/22 15:42 Dose: 20 mg
[2022-08-08] MEDS: ALPRAZolam 0.5 MG TABLET PO PRN (13:31)
[2022-08-08] MEDS: risperiDONE 0.5 MG TABLET PO SCH ×3 (13:38→22:25)
[2022-08-08] MEDS: DOCUSATE SODIUM 100 MG CAP PO SCH (17:07)
[2022-08-08] MEDS: POLYETHYLENE (MIRALAX) 17 GM PACK PO SCH (17:07)
[2022-08-08] MEDS: RIVAROXABAN 20 MG TAB PO SCH (17:45)
[2022-08-08] MEDS: NSS + 20MEQ KCL 20 MEQ/1,000 ML BAG IV SCH (21:27)
[2022-08-08] MEDS: MELATONIN 3 MG TAB PO SCH ×2 (22:19→22:25)
[2022-08-09] MEDS: LEVOTHYROXINE SODIUM 112 MCG TABLET PO SCH (05:29)
[2022-08-09] MEDS: risperiDONE 0.5 MG TABLET PO SCH ×2 (08:31→20:45)
[2022-08-09] MEDS: POLYETHYLENE (MIRALAX) 17 GM PACK PO SCH (08:34)
[2022-08-09] MEDS: DOCUSATE SODIUM 100 MG CAP PO SCH (08:34)
[2022-08-09] MEDS: ACETAMINOPHEN 500 MG TAB PO PRN ×2 (08:53→20:48)
[2022-08-09] MEDS: oxyCODONE HCL IR 5 MG TAB (IMMEDIATE RELEASE) PO PRN (08:53)
[2022-08-09] MEDS: DICLOFENAC SOD 1% GEL 100 GM TUBE EXT SCH ×3 (09:27→17:06)
[2022-08-09] MEDS: NSS + 20MEQ KCL 20 MEQ/1,000 ML BAG IV SCH (10:38)
--- NOTE | 2022-08-09 13:10 | Hospitalist Progress Note ---
Date of Service August 09, 2022 Assessment & Plan (1) Major neurocognitive disorder: Plan: Mrs. Ford is a 77 yo woman with history of anxiety, panic attacks and with progressive major neurocognitive disorder and development of hallucinations following cerebral ischemic resulting in geriatric psychiatric admission this summer. - Medical work up has been done to examine and treat any underlying causes contributing to potential delirium. No obvious cause noted. WBC not elevated. TSH normal. Head CT negative. CMP showing mild, non gapped metabolic acidosis, however this is new today, 08/09/22 (not present on admission). Suspect spiral is due to progression of her underlying neurocognitive - psych following -1-on-1 prn at hospitalist discretion for agitation - not necessary during day shift 08/09/22 but can always be added back -Continue risperidone 0.25mg BID -Consider melatonin 3mg qhs - avoid or limit use of deliriogenic medications (benzodiazepines, opioids, anticholinergics) -Continue with delirium prevention measures: raising blinds during the day, closing at night, frequent re-orientation, contact with family/friends, explaining procedures/nursing care measures prior to physical contact, correct any hearing and visual impairments -For behavioral emergency: olanzapine 5 mg IM x 1 (DO NOT exceed 20mg per 24 hours, check EKG if IM dose required, NEVER co-administer with IM or IV benzodiazepines). (2) Anemia: Plan: - Hgb 10.2. MCV 103, macrocytic - Folate and B12 WNL - ferritin ordered to screen for iron deficiency - fecal occult blood ordered (3) Afib: Plan: - chronic - on xarelto for stroke risk mitigation (4) Metabolic acidosis, normal anion gap (NAG): Plan: - bicarb low at 19 - AG normal at 9 - suspect etiology is IV fluid infusion. Since patient can take in PO, I have discontinued IVF - repeat BMP in am DVT ppx: on xarelto Diet: regular Dispo: Med/Surg Code: Conditional Admission and Anticipated Discharge Date Admission Date: July 28, 2022 Subjective no acute events overnight. Nursing with no concerns Review of Systems Review of Systems: All systems reviewed & are unremarkable except as noted in HPI & below Physical Exam Constitutional: WD/WN, vitals as above Eyes: + anicteric sclerae ENMT: external ear and nose normal, oropharynx normal Neck: trachea midline, no thyromegaly Respiratory: normal respiratory effort Musculoskeletal: Head/Neck/Chest: normocephalic and head atraumatic Skin: no rashes, warm and dry + hyperpigmentation of face Neurologic: moves all extremities Psychiatric: Orientation: + not oriented to place and + not oriented to time Eye Contact: + fair eye contact Speech: normal rate/rhythm/volume of speech Affect: euthymic affect Genitourinary: Sheridan catheter in place, draining yellow urine without visible blood clots Results & Data Results & Data ([facility]) Vital Signs (Past 12 Hours) Vital Signs Pulse O2 Del Method 08/09/22 07:45 94 H 08/09/22 07:45 Room Air PG Care Time/CCT Total # of Minutes Spent Total Time Spent with Patient: Total time spent is greater than 50% in coordination of care (as documented) at patient's floor/unit and/or counseling patient: Coding Level of Care Code 95413 Subseq Hosp Care Lvl 2 Diagnoses Major neurocognitive disorder F03.90 Anemia D64.9 Afib I48.91 Atrial fibrillation type: unspecified Metabolic acidosis, normal anion gap (NAG) E87.20 (1) Afib Atrial fibrillation type: unspecified Qualified Code(s): I48.91 - Unspecified atrial fibrillation
[2022-08-09] MEDS: RIVAROXABAN 20 MG TAB PO SCH (17:06)
[2022-08-09] MEDS: MELATONIN 3 MG TAB PO SCH (20:45)
[2022-08-10] MEDS: ACETAMINOPHEN 500 MG TAB PO PRN ×3 (04:58→19:32)
[2022-08-10] MEDS: LEVOTHYROXINE SODIUM 112 MCG TABLET PO SCH (04:59)
[2022-08-10 07:13] LABS: BUN Creatinine Ratio 15.6 (10-20); Calcium 8.5 mg/dl (8.5-10.1); Creatinine Clr Calc Pharmacy 92.8 ml/min; Est GFR (African American) 101.2 ml/min; Est GFR (Non-African American) 87.3 ml/min; Potassium 3.7 mmol/L (3.5-5.1)
[2022-08-10] MEDS: DICLOFENAC SOD 1% GEL 100 GM TUBE EXT SCH ×3 (10:17→16:10)
--- NOTE | 2022-08-10 10:24 | Hospitalist Progress Note ---
Date of Service August 10, 2022 Assessment & Plan (1) Major neurocognitive disorder: Plan: Mrs. Ford is a 77 yo woman with history of progressive major neurocognitive disorder and development of hallucinations following cerebral ischemic resulting in geriatric psychiatric admission this summer. - Medical work up has been done to examine any underlying causes contributing to potential delirium. No obvious cause noted. WBC not elevated. TSH normal. Head CT negative. CMP showing mild, non gapped metabolic acidosis, however this was new as of 08/09/22 (not present on admission) - it did improve slightly on 08/10/22. Suspect spiral is due to progression of her underlying neurocognitive - As for her drowsiness on 08/10/22 - the reason for this is unclear. Per nursing, she was not given any prn narcotic or benzo doses overnight. She does not have any new signs of infection (vitals normal). Her bicarb level improved. This may be due to her risperdal vs. simply not getting much sleep overnight. Continue to monitor. - psych following - 1-on-1 prn at hospitalist discretion for agitation - not necessary during day shift 08/09/22 but can always be added back - Continue risperidone 0.25mg BID - Consider melatonin 3mg qhs - avoid or limit use of deliriogenic medications (benzodiazepines, opioids, anticholinergics) - Continue with delirium prevention measures: raising blinds during the day, closing at night, frequent re-orientation, contact with family/friends, explaining procedures/nursing care measures prior to physical contact, correct any hearing and visual impairments -For behavioral emergency: olanzapine 5 mg IM x 1 (DO NOT exceed 20mg per 24 hours, check EKG if IM dose required, NEVER co-administer with IM or IV benzodiazepines). (2) Anemia: Plan: - Hgb 10.2. MCV 103, macrocytic - Folate and B12 WNL - ferritin normal - fecal occult blood ordered (3) Afib: Plan: - chronic - on xarelto for stroke risk mitigation (4) Metabolic acidosis, normal anion gap (NAG): Plan: - bicarb low at 19 --> improved to 20 on 08/10/22 - AG normal at 9 - suspect etiology is IV fluid infusion. Since patient can take in PO, I have discontinued IVF DVT ppx: on xarelto Diet: regular Dispo: Med/Surg Code: Conditional Admission and Anticipated Discharge Date Admission Date: July 28, 2022 Subjective no acute events overnight. She was very drowsy this morning compared to yesterday - per nursing she did wake up toward the afternoon Review of Systems Review of Systems: Unobtainable due to cognitive status Physical Exam Constitutional: WD/WN, vitals as above Eyes: + anicteric sclerae ENMT: external ear and nose normal, oropharynx normal Neck: trachea midline, no thyromegaly Respiratory: normal respiratory effort Musculoskeletal: Head/Neck/Chest: normocephalic and head atraumatic Skin: no rashes, warm and dry Neurologic: moves all extremities Psychiatric: Orientation: + not oriented to place and + not oriented to time Results & Data Results & Data ([facility]) Vital Signs (Past 12 Hours) Vital Signs Temp Pulse Resp BP Pulse Ox O2 Del Method 08/10/22 06:46 36.6 C 79 18 150/80 H 100 Room Air 08/10/22 03:49 36.4 C L 78 18 151/77 H 100 Room Air PG Care Time/CCT Total # of Minutes Spent Total Time Spent with Patient: Total time spent is greater than 50% in coordination of care (as documented) at patient's floor/unit and/or counseling patient: Coding Level of Care Code 94258 Subseq Hosp Care Lvl 1 Diagnoses Major neurocognitive disorder F03.90 Anemia D64.9 Afib I48.91 Atrial fibrillation type: unspecified Metabolic acidosis, normal anion gap (NAG) E87.20 (1) Afib Atrial fibrillation type: unspecified Qualified Code(s): I48.91 - Unspecified atrial fibrillation
[2022-08-10] MEDS: POLYETHYLENE (MIRALAX) 17 GM PACK PO SCH (11:07)
[2022-08-10] MEDS: risperiDONE 0.5 MG TABLET PO SCH ×2 (11:07→20:49)
[2022-08-10] MEDS: DOCUSATE SODIUM 100 MG CAP PO SCH (11:07)
[2022-08-10] MEDS: oxyCODONE HCL IR 5 MG TAB (IMMEDIATE RELEASE) PO PRN ×2 (15:19→20:48)
--- NOTE | 2022-08-10 17:06 | Psychiatric Progress Note ---
Date of Service August 10, 2022 Impression / Recommendations Impression 77 yo woman with history of anxiety and panic attacks with progressive major neurocognitive disorder and development of hallucinations following cerebral ischemic resulting in geriatric psychiatric admission this summer. Improving significantly with addition of risperidone and previously responded well to Invega NUNEZ. 08/10/22: as per Dr. Faria. no recent doses Xanax, melatonin has been since 08/07, Risperdal restarted 0.25 mg BID (1) Major neurocognitive disorder: Plan case reviewed briefly with Dr. Grande, patient's MSE has improved as day progressed. I'm unsure if still requiring melatonin. Could decrease Risperdal to hs only if sedation persists. Consider decrease Xanax prn to 0.25 mg prn as also has an opiate prn. Interval History Identifying Information 77 yo woman with unclear but significant past psychiatric history with recent geriatric psychiatry admission at [place] previously on Invega admitted medically for altered mental status. Psychiatry consulted for medication recommendations. Seen by Dr. Faria for initial consult on 08/03/22. Chief Complaint sedation today Subjective Subjective Patient was seen & assessed and interval progress reviewed with nursing. Patient has not been agitated but is more sedated this am, no real change in meds yesterday and receiving less prns. Nurse states no swallow issues or significant tremor/rigidity, sometimes respiratory complaints. Physical Exam Psychiatric deferred as patient sleeping, skin discoloration noted as per hx Vital Signs (Past 24 Hours) Last Vital Signs Temp 36.9 C 08/10/22 15:40 Pulse 55 L 08/10/22 15:40 Resp 19 08/10/22 15:40 BP 150/82 H 08/10/22 15:40 Pulse Ox 99 08/10/22 15:40 O2 Del Method 08/10/22 15:40 O2 Flow Rate 2 08/04/22 02:43 Results & Data ([facility]) Laboratory Results Laboratory Results - last 24 hr 08/10/22 05:57 Sodium 142 Potassium 3.7 Chloride 115 H Carbon Dioxide 20 L Anion Gap 7 BUN 10 Creatinine 0.64 Est Cr Clr Drug Dosing 92.8 Est GFR ( Amer) 101.2 Est GFR (Non-Af Amer) 87.3 BUN/Creatinine Ratio 15.6 Glucose 100 H Calcium 8.5 Current Inpatient Medications Current Inpatient Medications: Current Inpatient Medications Acetaminophen (Acetaminophen 500 Mg Tab) 1,000 mg PO Q6 PRN PRN Reason: Pain Stop: 08/27/22 10:49 Last Admin: 08/10/22 13:35 Dose: 1,000 mg Alprazolam (Alprazolam 0.5 Mg Tablet) 0.5 mg PO TID PRN PRN Reason: Anxiety Stop: 08/29/22 15:33 Last Admin: 08/08/22 13:31 Dose: 0.5 mg Diclofenac Sodium (Diclofenac Sod 1% Gel 100 Gm Tube) 2 gm EXT 3XDQ4 [facility]; Protocol Stop: 09/01/22 07:59 Last Admin: 08/10/22 16:10 Dose: Not Given Docusate Sodium (Docusate Sodium 100 Mg Cap) 200 mg PO DAILY [facility] Stop: 08/28/22 08:59 Last Admin: 08/10/22 11:07 Dose: 200 mg Levothyroxine Sodium (Levothyroxine Sodium 112 Mcg Tablet) 112 mcg PO DAILYBB [facility] Stop: 08/29/22 15:44 Last Admin: 08/10/22 04:59 Dose: 112 mcg Melatonin (Melatonin 3 Mg Tab) 3 mg PO HS [facility] Stop: 09/06/22 20:59 Last Admin: 08/09/22 20:45 Dose: 3 mg Ondansetron HCl (Ondansetron Inj 2 Mg/Ml 2 Ml Vial) 4 mg IV Q6H PRN PRN Reason: Nausea Stop: 08/27/22 10:28 Oxycodone HCl (Oxycodone Hcl Ir 5 Mg Tab (Immediate Release)) 5 mg PO Q6H PRN PRN Reason: Pain Stop: 08/13/22 15:33 Last Admin: 08/10/22 15:19 Dose: 5 mg Polyethylene Glycol (Polyethylene (Miralax) 17 Gm Pack) 17 gm PO DAILY [facility] Stop: 08/30/22 08:59 Last Admin: 08/10/22 11:07 Dose: 17 gm Risperidone (Risperidone 0.5 Mg Tablet) 0.25 mg PO BID [facility] Stop: 09/07/22 08:59 Last Admin: 08/10/22 11:07 Dose: 0.25 mg Rivaroxaban (Rivaroxaban 20 Mg Tab) 20 mg PO QDD [facility] Stop: 08/30/22 16:29 Last Admin: 08/09/22 17:06 Dose: 20 mg
[2022-08-10] MEDS ORDERED: ALPRAZolam 0.25 MG TABLET PO PRN (17:10)
[2022-08-10] MEDS: RIVAROXABAN 20 MG TAB PO SCH (17:21)
[2022-08-10] MEDS: MELATONIN 3 MG TAB PO PRN (20:48)
[2022-08-11] MEDS: LEVOTHYROXINE SODIUM 112 MCG TABLET PO SCH (05:38)
--- NOTE | 2022-08-11 09:20 | Hospitalist Progress Note ---
Date of Service August 11, 2022 Assessment & Plan (1) Major neurocognitive disorder: Plan: dementia with psychosis (Has been in a now closed inpatient psychiatry facility in [place], [place] in Aug for some weeks this year. Dx unknown) Institutional care post SNF seems best option. 08/08 Risperdal stopped two days ago for concerns about sedation- not by psychiatry . Restarted D/W Dr Faria 08/08 as I felt the [facility] unit would be more appropriate than a senior living facility. However very hard to find [facility] psych beds and with her medical conditions are likely to decline her. At this time see how she does on restarting respite all. Zyprexa oral Ativan as needed in the meantime. on for psychiatry over this weekend who will also see patient. We have to stabilize her on psych meds and keep looking for senior living facility. Will nto take po med- on Xanax tid prn ( dose lowered 0.25 mg tid prn over weekend) Appreciate Dr Nicole 's input yesterday (2) UTI (urinary tract infection): Plan: Treated this admission with Cipro. Now resolved (3) Acute kidney injury superimposed on chronic kidney disease: Plan: has resolved 10/0.64 yesterday (4) Chronic, continuous use of opioids: Plan: Opioid dependent. Oxycodone being used sparingly- unknown where her pain is- patient c/o abd pain mostly including today (5) Weakness: Plan: w general debilitation :continue OT and PT when able (6) Hypothyroidism: Plan: Thyroid replacement therapy TSH normal this admission 1.4 (7) Afib: Plan: Pauses noted on telemetry often- last one 3/1 sec 08/10 2138. (Cardiology consultation to assess for possible permanent pacemaker 08/06- they opined no need at the moment. Digoxin, diltiazem, carvedilol on hold since admission) (8) Urine retention: Plan: On admission. Sheridan was removed to 3 days ago but retained again. To stay indwelling Likely from bladder flaccidity due to opioid use for a long time (9) Anemia: Plan: This is new since since admission 12 5. Hemoglobin was 12 in March. It has dropped over 2 g during this hospital stay. Check stool guaiac. Plan Anticipate eventual discharge to SNF facility Optimised for SNF transfer Bed awaited Admission and Anticipated Discharge Date Admission Date: July 28, 2022 Subjective at 0845, sitting up w eyes closed, breakfast try in front of her. Does not answer questions . " I feel like I will throw up." ROS not possible Events over weekend noted. 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 Psych : unable to assess Results & Data Results & Data ([facility]) Vital Signs (Past 12 Hours) Vital Signs Temp Pulse Pulse Resp BP Pulse Ox O2 Del Method 08/11/22 08:22 36.9 C 83 18 160/84 H 98 Room Air 08/11/22 00:20 80 08/10/22 23:08 36.6 C 86 18 132/88 100 Room Air Laboratory Results none Medications Administered Home Medications Medication Instructions Recorded Confirmed Last Taken levothyroxine 112 mcg tablet 112 mcg PO QAM 11/30/18 04/06/22 04/05/22 (Synthroid) digoxin 125 mcg (0.125 mg) tablet 125 mcg PO PM 07/07/19 04/06/22 04/05/22 (Lanoxin) diltiazem HCl 180 mg 180 mg PO QAM 12/11/19 04/06/22 04/05/22 capsule,extended release 24 hr (Cartia XT) lisinopril 40 mg tablet (Zestril) 40 mg PO QAM 12/11/19 04/06/22 04/05/22 carvedilol 25 mg tablet (Coreg) 25 mg PO BID 04/22/20 04/06/22 04/05/22 acetaminophen 500 mg tablet 1,000 mg PO Q6 PRN Pain 04/30/21 04/06/22 10/23/21 (Tylenol Extra Strength) rivaroxaban 20 mg tablet (Xarelto) 20 mg PO PM 06/03/21 04/06/22 04/05/22 benzonatate 100 mg capsule 100 mg PO TID PRN Cough 06/20/21 04/06/22 10/23/21 duloxetine 30 mg capsule,delayed 30 mg PO DAILY #30 caps 11/05/21 04/06/22 04/05/22 release (Cymbalta) alprazolam 0.5 mg tablet 0.5 mg PO TID PRN Anxiety 12/15/21 04/06/22 04/05/22 cyproheptadine 2 mg/5 mL oral syrup 2 mg PO DAILY PRN ALLERGIES 12/15/21 04/06/22 Unknown dexamethasone 0.5 mg/5 mL oral 1 mg PO DAILY 12/15/21 04/06/22 04/05/22 solution docusate sodium 100 mg capsule 200 mg PO DAILY 12/15/21 04/06/22 04/05/22 (Colace) melatonin 1 mg tablet 1 mg PO HS PRN Sleep 12/15/21 04/06/22 Unknown ondansetron 4 mg disintegrating 4 mg PO BID PRN nausea and vomiting 12/15/21 04/06/22 Unknown tablet clindamycin HCl 150 mg capsule 150 mg PO QID 04/06/22 04/06/22 04/05/22 furosemide 40 mg tablet 40 mg PO DAILY 04/06/22 04/06/22 04/05/22 oxycodone 5 mg tablet 5 mg PO Q6H PRN Pain 04/06/22 04/06/22 Unknown Active Medications Generic Name Dose Route Start Last Admin Trade Name Freq PRN Reason Stop Dose Admin Acetaminophen 1,000 mg 07/28/22 10:50 08/10/22 19:32 Acetaminophen 500 Mg Tab PO 08/27/22 10:49 1,000 mg Q6 PRN Administration Pain Diclofenac Sodium 2 gm 08/02/22 08:00 08/10/22 16:10 Diclofenac Sod 1% Gel 100 Gm Tube EXT 09/01/22 07:59 Not Given 3XDQ4 JENNY Protocol Docusate Sodium 200 mg 07/29/22 09:00 08/10/22 11:07 Docusate Sodium 100 Mg Cap PO 08/28/22 08:59 200 mg DAILY JENNY Administration Levothyroxine Sodium 112 mcg 07/30/22 16:30 08/11/22 05:38 Levothyroxine Sodium 112 Mcg Tablet PO 01/06/23 15:44 112 mcg DAILYBB JENNY Administration Melatonin 3 mg 08/10/22 17:11 08/10/22 20:48 Melatonin 3 Mg Tab PO 09/06/22 20:59 3 mg HS PRN Administration insomnia Oxycodone HCl 5 mg 07/30/22 15:34 08/10/22 20:48 Oxycodone Hcl Ir 5 Mg Tab (Immediate Release) PO 08/13/22 15:33 5 mg Q6H PRN Administration Pain Polyethylene Glycol 17 gm 07/31/22 09:00 08/10/22 11:07 Polyethylene (Miralax) 17 Gm Pack PO 08/30/22 08:59 17 gm DAILY JENNY Administration Risperidone 0.25 mg 08/08/22 09:00 08/10/22 20:49 Risperidone 0.5 Mg Tablet PO 09/07/22 08:59 0.25 mg BID JENNY Administration Rivaroxaban 20 mg 07/31/22 16:30 08/10/22 17:21 Rivaroxaban 20 Mg Tab PO 08/30/22 16:29 20 mg QDD JENNY Administration PG Care Time/CCT Total # of Minutes Spent Total Time Spent with Patient: Total time spent is greater than 50% in coordination of care (as documented) at patient's floor/unit and/or counseling patient: Coding Level of Care Code 81383 Subseq Hosp Care Lvl 2 Diagnoses Major neurocognitive disorder F03.90 UTI (urinary tract infection) N39.0 Acute kidney injury superimposed on chronic kidney disease N17.9; N18.9 Chronic, continuous use of opioids F11.90 Weakness R53.1 Hypothyroidism E03.9 Afib I48.91 Atrial fibrillation type: unspecified Urine retention R33.9 Anemia D64.9 (1) Afib Atrial fibrillation type: unspecified Qualified Code(s): I48.91 - Unspecified atrial fibrillation
[2022-08-11] MEDS: DICLOFENAC SOD 1% GEL 100 GM TUBE EXT SCH ×3 (10:53→18:13)
[2022-08-11] MEDS: POLYETHYLENE (MIRALAX) 17 GM PACK PO SCH (11:16)
[2022-08-11] MEDS: DOCUSATE SODIUM 100 MG CAP PO SCH (11:16)
[2022-08-11] MEDS: risperiDONE 0.5 MG TABLET PO SCH ×2 (11:16→21:03)
[2022-08-11] MEDS: oxyCODONE HCL IR 5 MG TAB (IMMEDIATE RELEASE) PO PRN (12:10)
[2022-08-11] MEDS: RIVAROXABAN 20 MG TAB PO SCH (18:13)
[2022-08-11] MEDS ORDERED: OLANZapine 10 MG/2.1 ML SDV IM STA (21:50)
[2022-08-12] MEDS: LEVOTHYROXINE SODIUM 112 MCG TABLET PO SCH (05:35)
--- NOTE | 2022-08-12 10:32 | Hospitalist Progress Note ---
Date of Service August 12, 2022 Assessment & Plan (1) Major neurocognitive disorder: Plan: dementia with psychosis (Has been in a now closed inpatient psychiatry facility in [place], [place] in Aug for some weeks this year. Dx unknown) Institutional care post SNF seems best option. 08/08 Risperdal stopped two days ago for concerns about sedation- not by psychiatry . Restarted D/W Dr Faria 08/08 as I felt the [facility] would be more appropriate than a [facility]. However very hard to find [facility] psych beds and with her medical conditions are likely to decline her. At this time see how she does on restarting respite all. Zyprexa oral Ativan as needed in the meantime. on for psychiatry over this weekend who will also see patient. We have to stabilize her on psych meds and keep looking for [facility] facility. Will nto take po med- on Xanax tid prn ( dose lowered 0.25 mg tid prn over weekend) 08/12 likely SNF bed soon. Still needs psych med adjustments. Requested psychiatry Dr Nicole to see her (2) UTI (urinary tract infection): Plan: Treated this admission with Cipro. Now resolved (3) Acute kidney injury superimposed on chronic kidney disease: Plan: has resolved 0.64 yesterday (4) Chronic, continuous use of opioids: Plan: Opioid dependent. Oxycodone being used sparingly- unknown where her pain is- patient c/o abd pain mostly including today (5) Weakness: Plan: w general debilitation :not cooperating w PT/ OT Prognosis poor (6) Hypothyroidism: Plan: Thyroid replacement therapy TSH normal this admission 1.4 (7) Afib: Plan: Pauses noted on telemetry often- last one 3/1 sec 08/10 2138. (Cardiology consultation to assess for possible permanent pacemaker 08/06- they opined no need at the moment. Digoxin, diltiazem, carvedilol on hold since admission) (8) Urine retention: Plan: On admission. [place] was removed to 3 days ago but retained again. To stay indwelling Likely from bladder flaccidity due to opioid use for a long time (9) Anemia: Plan: This is new since since admission 12 5. Hemoglobin was 12 in March. It has dropped over 2 g during this hospital stay. Check stool guaiac- prdered days ago- nto done when BM last night- requested RN to put a notice by patient's bed. Plan Anticipate eventual discharge to SNF facility Optimising psych meds for SNF transfer Bed awaited-- [facility] may have bed but paperwork by dept of aging pending. I d/w [facility] today 08/12 Admission and Anticipated Discharge Date Admission Date: July 28, 2022 Subjective seen at 0845 h Not responding to most questions Agitated last night- got Zyprexa im. And po Xanax. BM yesterday No breakfast yet-- was hyperventilating w abd breathing after waking up this am, and when i saw her. 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 Results & Data Results & Data ([facility]) Vital Signs (Past 12 Hours) Vital Signs Temp Pulse Pulse Resp BP BP Pulse Ox 08/12/22 10:04 166/83 H 08/12/22 07:26 100 H 30 H 187/64 H 90 08/12/22 03:41 73 19 136/80 96 08/12/22 00:37 106 H 08/11/22 22:36 36.4 C L 120 H 16 147/96 H 97 O2 Del Method 08/12/22 10:04 08/12/22 07:26 Room Air 08/12/22 03:41 Room Air 08/12/22 00:37 08/11/22 22:36 Room Air Laboratory Results none Medications Administered Home Medications Medication Instructions Recorded Confirmed Last Taken levothyroxine 112 mcg tablet 112 mcg PO QAM 11/30/18 04/06/22 04/05/22 (Synthroid) digoxin 125 mcg (0.125 mg) tablet 125 mcg PO PM 07/07/19 04/06/22 04/05/22 (Lanoxin) diltiazem HCl 180 mg 180 mg PO QAM 12/11/19 04/06/22 04/05/22 capsule,extended release 24 hr (Cartia XT) lisinopril 40 mg tablet (Zestril) 40 mg PO QAM 12/11/19 04/06/22 04/05/22 carvedilol 25 mg tablet (Coreg) 25 mg PO BID 04/22/20 04/06/22 04/05/22 acetaminophen 500 mg tablet 1,000 mg PO Q6 PRN Pain 04/30/21 04/06/22 10/23/21 (Tylenol Extra Strength) rivaroxaban 20 mg tablet (Xarelto) 20 mg PO PM 06/03/21 04/06/22 04/05/22 benzonatate 100 mg capsule 100 mg PO TID PRN Cough 06/20/21 04/06/22 10/23/21 duloxetine 30 mg capsule,delayed 30 mg PO DAILY #30 caps 11/05/21 04/06/22 04/05/22 release (Cymbalta) alprazolam 0.5 mg tablet 0.5 mg PO TID PRN Anxiety 12/15/21 04/06/22 04/05/22 cyproheptadine 2 mg/5 mL oral syrup 2 mg PO DAILY PRN ALLERGIES 12/15/21 04/06/22 Unknown dexamethasone 0.5 mg/5 mL oral 1 mg PO DAILY 12/15/21 04/06/22 04/05/22 solution docusate sodium 100 mg capsule 200 mg PO DAILY 12/15/21 04/06/22 04/05/22 (Colace) melatonin 1 mg tablet 1 mg PO HS PRN Sleep 12/15/21 04/06/22 Unknown ondansetron 4 mg disintegrating 4 mg PO BID PRN nausea and vomiting 12/15/21 04/06/22 Unknown tablet clindamycin HCl 150 mg capsule 150 mg PO QID 04/06/22 04/06/22 04/05/22 furosemide 40 mg tablet 40 mg PO DAILY 04/06/22 04/06/22 04/05/22 oxycodone 5 mg tablet 5 mg PO Q6H PRN Pain 04/06/22 04/06/22 Unknown Active Medications Generic Name Dose Route Start Last Admin Trade Name Freq PRN Reason Stop Dose Admin Acetaminophen 1,000 mg 07/28/22 10:50 08/10/22 19:32 Acetaminophen 500 Mg Tab PO 08/27/22 10:49 1,000 mg Q6 PRN Administration Pain Alprazolam 0.25 mg 08/10/22 17:10 08/12/22 00:57 Alprazolam 0.25 Mg Tablet PO 08/29/22 15:33 0.25 mg TID PRN Administration Anxiety Diclofenac Sodium 2 gm 08/02/22 08:00 08/11/22 18:13 Diclofenac Sod 1% Gel 100 Gm Tube EXT 09/01/22 07:59 Not Given 3XDQ4 JENNY Protocol Docusate Sodium 200 mg 07/29/22 09:00 08/11/22 11:16 Docusate Sodium 100 Mg Cap PO 08/28/22 08:59 200 mg DAILY JENNY Administration Levothyroxine Sodium 112 mcg 07/30/22 16:30 08/12/22 05:35 Levothyroxine Sodium 112 Mcg Tablet PO 08/29/22 15:44 112 mcg DAILYBB JENNY Administration Melatonin 3 mg 08/10/22 17:11 08/10/22 20:48 Melatonin 3 Mg Tab PO 09/06/22 20:59 3 mg HS PRN Administration insomnia Oxycodone HCl 5 mg 07/30/22 15:34 08/11/22 12:10 Oxycodone Hcl Ir 5 Mg Tab (Immediate Release) PO 08/13/22 15:33 5 mg Q6H PRN Administration Pain Polyethylene Glycol 17 gm 07/31/22 09:00 08/11/22 11:16 Polyethylene (Miralax) 17 Gm Pack PO 08/30/22 08:59 17 gm DAILY JENNY Administration Risperidone 0.25 mg 08/08/22 09:00 08/11/22 21:03 Risperidone 0.5 Mg Tablet PO 09/07/22 08:59 0.25 mg BID JENNY Administration Rivaroxaban 20 mg 07/31/22 16:30 08/11/22 18:13 Rivaroxaban 20 Mg Tab PO 08/30/22 16:29 20 mg QDD JENNY Administration PG Care Time/CCT Total # of Minutes Spent Total Time Spent with Patient: Total time spent is greater than 50% in coordination of care (as documented) at patient's floor/unit and/or counseling patient: Coding Level of Care Code 62657 Subseq Hosp Care Lvl 2 Diagnoses Major neurocognitive disorder F03.90 UTI (urinary tract infection) N39.0 Acute kidney injury superimposed on chronic kidney disease N17.9; N18.9 Chronic, continuous use of opioids F11.90 Weakness R53.1 Hypothyroidism E03.9 Afib I48.91 Atrial fibrillation type: unspecified Urine retention R33.9 Anemia D64.9 (1) Afib Atrial fibrillation type: unspecified Qualified Code(s): I48.91 - Unspecified atrial fibrillation
[2022-08-12] MEDS: DICLOFENAC SOD 1% GEL 100 GM TUBE EXT SCH ×3 (10:46→16:53)
[2022-08-12] MEDS: POLYETHYLENE (MIRALAX) 17 GM PACK PO SCH (10:47)
[2022-08-12] MEDS: risperiDONE 0.5 MG TABLET PO SCH ×2 (10:47→21:03)
[2022-08-12] MEDS: DOCUSATE SODIUM 100 MG CAP PO SCH (10:47)
--- NOTE | 2022-08-12 13:37 | Psychiatric Progress Note ---
Date of Service August 12, 2022 Impression / Recommendations Impression 77 yo woman with history of anxiety and panic attacks with progressive major neurocognitive disorder and development of hallucinations following cerebral ischemic resulting in geriatric psychiatric admission this summer. Initially improved significantly with addition of risperidone and previously responded well to Invega NUNEZ. 08/12/22: continues to fluctuate in level of consciousness/odd breathing pattern not consistent with panic, periods of restlessness without aggression---ongoing encephalopathy (1) Major neurocognitive disorder: (2) AMS (altered mental status): Plan d/c Xanax as previously recommended consider EEG monitor tachy on Risperdal Interval History Identifying Information 77 yo woman with unclear but significant past psychiatric history with recent geriatric psychiatry admission at [facility] previously on Invega admitted medically for altered mental status. Psychiatry consulted for medication recommendations. Seen by Dr. Faria for initial consult on 08/03/22. Chief Complaint anxiety Subjective Subjective Patient was seen & assessed and interval progress reviewed with nursing and Dr. Moya as required prn Zyprexa overnight for restlessness, seemed calling out/anxious with pulling at cardiac leads. Heart monitor to be d/c. Physical Exam Psychiatric patient opened eyes to name, rhythmic breathing, no posturing Vital Signs (Past 24 Hours) Last Vital Signs Temp 36.1 C L 08/12/22 12:32 Pulse 100 H 08/12/22 12:32 Resp 28 H 08/12/22 12:32 BP 154/75 H 08/12/22 12:32 Pulse Ox 93 08/12/22 12:32 O2 Del Method 08/12/22 12:32 O2 Flow Rate 2 08/04/22 02:43 Results & Data ([facility]) Current Inpatient Medications Current Inpatient Medications: Current Inpatient Medications Acetaminophen (Acetaminophen 500 Mg Tab) 1,000 mg PO Q6 PRN PRN Reason: Pain Stop: 08/27/22 10:49 Last Admin: 08/10/22 19:32 Dose: 1,000 mg Diclofenac Sodium (Diclofenac Sod 1% Gel 100 Gm Tube) 2 gm EXT 3XDQ4 JENNY; Protocol Stop: 09/01/22 07:59 Last Admin: 08/12/22 12:55 Dose: Not Given Docusate Sodium (Docusate Sodium 100 Mg Cap) 200 mg PO DAILY JENNY Stop: 08/28/22 08:59 Last Admin: 08/12/22 10:47 Dose: Not Given Levothyroxine Sodium (Levothyroxine Sodium 112 Mcg Tablet) 112 mcg PO DAILYBB [facility] Stop: 08/29/22 15:44 Last Admin: 08/12/22 05:35 Dose: 112 mcg Melatonin (Melatonin 3 Mg Tab) 3 mg PO HS PRN PRN Reason: insomnia Stop: 09/06/22 20:59 Last Admin: 08/10/22 20:48 Dose: 3 mg Ondansetron HCl (Ondansetron Inj 2 Mg/Ml 2 Ml Vial) 4 mg IV Q6H PRN PRN Reason: Nausea Stop: 08/27/22 10:28 Oxycodone HCl (Oxycodone Hcl Ir 5 Mg Tab (Immediate Release)) 5 mg PO Q6H PRN PRN Reason: Pain Stop: 08/13/22 15:33 Last Admin: 08/11/22 12:10 Dose: 5 mg Polyethylene Glycol (Polyethylene (Miralax) 17 Gm Pack) 17 gm PO DAILY [facility] Stop: 08/30/22 08:59 Last Admin: 08/12/22 10:47 Dose: Not Given Risperidone (Risperidone 0.5 Mg Tablet) 0.25 mg PO BID [facility] Stop: 09/07/22 08:59 Last Admin: 08/12/22 10:47 Dose: Not Given Rivaroxaban (Rivaroxaban 20 Mg Tab) 20 mg PO QDD [facility] Stop: 08/30/22 16:29 Last Admin: 08/11/22 18:13 Dose: 20 mg
[2022-08-12] MEDS: RIVAROXABAN 20 MG TAB PO SCH (17:19)
[2022-08-13] MEDS: LEVOTHYROXINE SODIUM 112 MCG TABLET PO SCH (05:52)
[2022-08-13] MEDS: MELATONIN 3 MG TAB PO PRN ×2 (08:50→22:33)
[2022-08-13] MEDS: DICLOFENAC SOD 1% GEL 100 GM TUBE EXT SCH ×3 (08:50→16:10)
[2022-08-13] MEDS: risperiDONE 0.5 MG TABLET PO SCH ×3 (08:51→22:33)
[2022-08-13] MEDS: DOCUSATE SODIUM 100 MG CAP PO SCH (08:52)
[2022-08-13] MEDS: POLYETHYLENE (MIRALAX) 17 GM PACK PO SCH (08:52)
--- NOTE | 2022-08-13 09:49 | Neurology Consultation ---
Date of Consultation August 13, 2022 Assessment & Plan (1) AMS (altered mental status): Plan NEUROLOGY CONSULTATION Assessment & Plan: Impression: Pt with known dementia and with chronic UTI. overall, there is no suggestion pt is having seizure. Pt likely having fluctuating hallucination and AMS due to several factors including chronic UTI, progressing dementia, underlying psychiatric disorders and polypharmacy with narcotic use likely contributes also. Recommendations: -i do not see the need for EEG continue tx for UTI and supportive care with hydration and nutritional care. not much to offer from neurology. will defer to psych for further hallucinations management. call again if new question. Dr. Allan Martínez MD [facility] Chief Complaint: History of Present Illness: HPI: pt with known dementia and UTI and several chronic medical issues. called to evaluate pt for confusion. pt apparently having episodic hallucinations. pt has baseline progressing dementia. this morning pt is sitting up eating and does follow command well. no jesus hallucinations this morning. chart reviewed. CT head negative. Admission/Initial HPI documentation: Patient is a 77-year-old female with extensive past medical history including recurrent UTIs, chronic pain syndromes, CKD 3, A. fib anticoagulated on Xarelto, hypothyroidism, pulmonary hypertension, cardiomyopathy, CHF, TIA, psychiatric issues, and hyponatremia. Patient was brought to the emergency department as she has had increasing confusion and weakness over the past week. She was found on the ground after what appeared to be sliding out of her chair at home. She lives with her son who is her primary technical administrator. Other stork information was initially limited secondary to patient's altered mental status. Laboratory suggests UTI. CT head and cervical spine without acute findings. Chest x-ray demonstrates no acute findings. She was treated with IV Rocephin and received IV fluids. She was noted to have an POPPY on CKD 3, but otherwise without other significant laboratory findings. Upon my evaluation in the emergency department, the patient is confused and somnolent. She does awaken to stimuli. She is unable to provide historical information. Patient son does eventually present to bedside. He reports that his mom recently had a long stay at a assisted in [facility]. Some medications were changed at that point to include paliperidone. He confirms that she does take a number psychiatric medicines and sleep aids, however she is not taking her sleep medication for the past few weeks secondary to increasing confusion. Otherwise, he reports that she has been getting her medications as prescribed. He reports that she has not had any significant complaints lately, but he does suggest that she may be experiencing some symptoms as she typically likes her room cold, however she is have the heat up relatively high as of recently. Son states that he and his brother act as medical power of claim attorney's. Past Medical History: See chart Meds: See chart I personally reviewed all of the medications Social & Family History: See chart Review of Systems: Per initial HPI on admission. Pt too cognitively or communication impaired to participate in ROS. Physical Exam: GEN: NAD HEENT: Normocephalic Neuro: Mental status:Alert, she oriented to herself. not sure of location or month or year. does follow simple commands.No dysarthria or aphasia.No neglect. Fluent speech. No apraxia Cranial Nerves:II-XII intact Motor:Normal bulk and tone,moves all limbs grossly. Coordination:Intact upper limbs. Reflexes:down going toes [place] Sensation: Intact x 4 extremities to touch Chart reviewed I have spent more than 50% educating patient about potential diagnosis and ne urological evaluation and coordinating care with patient's treatment team. Total time spent (including chart review and coordination of care): 80 min (this includes chart review). History of Present Illness Attending Physician: Darrell William MD Allergies Allergy/AdvReac Type Severity Reaction Status Date / Time gabapentin Allergy Unknown MULTIPLE Verified 12/15/21 18:51 REACTIONS "COULD GO ON AND ON" - SEE NOTES codeine AdvReac Intermediate SEVERE GI Verified 12/15/21 18:51 SYMPTOMS Home Medications Medication Instructions Recorded Confirmed Type levothyroxine 112 mcg tablet 112 mcg PO QAM 11/30/18 04/06/22 History (Synthroid) digoxin 125 mcg (0.125 mg) tablet 125 mcg PO PM 07/07/19 04/06/22 History (Lanoxin) diltiazem HCl 180 mg 180 mg PO QAM 12/11/19 04/06/22 History capsule,extended release 24 hr (Cartia XT) lisinopril 40 mg tablet (Zestril) 40 mg PO QAM 12/11/19 04/06/22 History carvedilol 25 mg tablet (Coreg) 25 mg PO BID 04/22/20 04/06/22 History acetaminophen 500 mg tablet 1,000 mg PO Q6 PRN Pain 04/30/21 04/06/22 History (Tylenol Extra Strength) rivaroxaban 20 mg tablet (Xarelto) 20 mg PO PM 06/03/21 04/06/22 History benzonatate 100 mg capsule 100 mg PO TID PRN Cough 06/20/21 04/06/22 History duloxetine 30 mg capsule,delayed 30 mg PO DAILY #30 caps 11/05/21 04/06/22 Rx release (Cymbalta) alprazolam 0.5 mg tablet 0.5 mg PO TID PRN Anxiety 12/15/21 04/06/22 History cyproheptadine 2 mg/5 mL oral syrup 2 mg PO DAILY PRN ALLERGIES 12/15/21 04/06/22 History dexamethasone 0.5 mg/5 mL oral 1 mg PO DAILY 12/15/21 04/06/22 History solution docusate sodium 100 mg capsule 200 mg PO DAILY 12/15/21 04/06/22 History (Colace) melatonin 1 mg tablet 1 mg PO HS PRN Sleep 12/15/21 04/06/22 History ondansetron 4 mg disintegrating 4 mg PO BID PRN nausea and vomiting 12/15/21 04/06/22 History tablet clindamycin HCl 150 mg capsule 150 mg PO QID 04/06/22 04/06/22 History furosemide 40 mg tablet 40 mg PO DAILY 04/06/22 04/06/22 History oxycodone 5 mg tablet 5 mg PO Q6H PRN Pain 04/06/22 04/06/22 History Patient History Medical History Ambulatory dysfunction LIMITED MOBILITY D/T CHRONIC WEAKNESS PER PT & SON Anxiety Atrial fibrillation DX 8 YR AGO, HX CARDIOVERSION Atrial fibrillation with RVR no pacer> follows with Dr. March > stable Cardiomyopathy CHF (congestive heart failure) Chronic fatigue syndrome Chronic pain CKD (chronic kidney disease), stage III Gallbladder problem POSSIBLE PER PT...NO MEDICAL DX OF, NO EVAL FOR GI problem "INFLAMMATION OF DIGESTIVE TRACT" - PT DENIES MEDICAL DX OF DIGESTIVE PROBLEM SUCH IBS, CHRON'S, DIVERTICULTIS,COLITIS, ETC... Headache History of anemia History of recurrent UTIs REPORTS HX BLADDER INFECTIONS - NONE CURRENT Hypothyroidism Lumbar facet joint syndrome Multinodular goiter ? HX OF Neck stiffness PT REPORTS ONGOING PROBLEM, POSTURE RELATED SOB (shortness of breath) on exertion TIA (transient ischemic attack) pt reports was stroke like symptoms but was related to being sick, not actual TIA Weakness CHRONIC Surgical History H/O breast augmentation History of colonoscopy History of laparoscopy "LASER LAPARAOSCOPIES" S/P tooth extraction HX Family History Mother , age 83 with lung cancer and COPD Lung cancer COPD (chronic obstructive pulmonary disease) Family history of diabetes mellitus Father , in 70s of bladder cancer and COPD Bladder cancer COPD (chronic obstructive pulmonary disease) Family history of diabetes mellitus Brother Family history of diabetes mellitus Other Allergies Asthma Cancer Family history of bleeding disorder Family history of colon cancer in father Hearing loss Heart disease Hypertension Denies family history of Stroke Social History Smoking Status: Never smoker Second Hand Exposure: No; Hx Alcohol Use: No Hx Substance Use: No Preferred Language: Faroese Communication Ability: Impaired Communication Ability Comment: Cataracts Visual Impairment: No Limitations Lacemaker Required: No Beliefs That Will Affect Care: None marital status: Single Current Living Situation: Family Current Living Situation Comment: lives with son current occupational status: retired and disabled How many Children do You have: 2 Other Information That Helps Us Care for You: No other: Disabled in her 50s. 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
--- NOTE | 2022-08-13 10:56 | Psychiatric Progress Note ---
Date of Service August 13, 2022 Impression / Recommendations Impression 77 yo woman with history of anxiety and panic attacks with progressive major neurocognitive disorder and development of hallucinations following cerebral ischemic resulting in geriatric psychiatric admission this summer. Initially improved significantly with addition of risperidone and previously responded well to Invega NUNEZ. 08/13/22: ongoing encephalopathy with likely sedation from prn (delayed) and possibly Risperdal. (1) Major neurocognitive disorder: (2) Metabolic encephalopathy: Plan taper Risperdal to hs neuro consult reviewed, no EEG planned at this time CM for SNF referrals Interval History Identifying Information 77 yo woman with unclear but significant past psychiatric history with recent geriatric psychiatry admission at [facility] previously on Invega admitted medically for altered mental status. Psychiatry consulted for medication recommendations. Seen by Dr. Faria for initial consult on 08/03/22. Chief Complaint AMS Subjective Subjective Patient was seen & assessed and interval progress reviewed. Patient received IM Zyprexa 10/12/21. Was less cooperative with care yesterday due to sedation. per nursing refused meds/gown, picked at IV site. calmer yet still confused in evening. no additional prn. This am OOA communicating with CM. Still belly breathing. Does not appear that she has been participating with PT. Physical Exam Psychiatric patient was resting, belly breathing noted, did not awaken to name Vital Signs (Past 24 Hours) Last Vital Signs Temp 36.5 C 08/13/22 07:26 Pulse 118 H 08/13/22 07:26 Resp 24 08/13/22 07:26 BP 128/84 08/13/22 07:26 Pulse Ox 100 08/13/22 07:26 O2 Del Method 08/13/22 07:26 O2 Flow Rate 2 08/04/22 02:43 Results & Data ([facility]) Current Inpatient Medications Current Inpatient Medications: Current Inpatient Medications Acetaminophen (Acetaminophen 500 Mg Tab) 1,000 mg PO Q6 PRN PRN Reason: Pain Stop: 08/27/22 10:49 Last Admin: 08/10/22 19:32 Dose: 1,000 mg Diclofenac Sodium (Diclofenac Sod 1% Gel 100 Gm Tube) 2 gm EXT 3XDQ4 JENNY; Protocol Stop: 09/01/22 07:59 Last Admin: 08/13/22 08:50 Dose: Not Given Docusate Sodium (Docusate Sodium 100 Mg Cap) 200 mg PO DAILY [facility] Stop: 08/28/22 08:59 Last Admin: 08/13/22 08:52 Dose: 200 mg Levothyroxine Sodium (Levothyroxine Sodium 112 Mcg Tablet) 112 mcg PO DAILYBB [facility] Stop: 08/29/22 15:44 Last Admin: 08/13/22 05:52 Dose: Not Given Melatonin (Melatonin 3 Mg Tab) 3 mg PO HS PRN PRN Reason: insomnia Stop: 09/06/22 20:59 Last Admin: 08/13/22 08:50 Dose: 3 mg Ondansetron HCl (Ondansetron Inj 2 Mg/Ml 2 Ml Vial) 4 mg IV Q6H PRN PRN Reason: Nausea Stop: 08/27/22 10:28 Oxycodone HCl (Oxycodone Hcl Ir 5 Mg Tab (Immediate Release)) 5 mg PO Q6H PRN PRN Reason: Pain Stop: 08/13/22 15:33 Last Admin: 08/11/22 12:10 Dose: 5 mg Polyethylene Glycol (Polyethylene (Miralax) 17 Gm Pack) 17 gm PO DAILY JENNY Stop: 08/30/22 08:59 Last Admin: 08/13/22 08:52 Dose: 17 gm Risperidone (Risperidone 0.5 Mg Tablet) 0.25 mg PO HS JENNY Stop: 09/12/22 20:59 Rivaroxaban (Rivaroxaban 20 Mg Tab) 20 mg PO QDD [facility] Stop: 08/30/22 16:29 Last Admin: 08/12/22 17:19 Dose: Not Given
--- NOTE | 2022-08-13 14:29 | Hospitalist Progress Note ---
Date of Service August 13, 2022 Assessment & Plan (1) Major neurocognitive disorder: Plan: dementia with psychosis . Has been in a now closed inpatient psychiatry fa [facility] in [place], [place] in Aug for some weeks this year. Dx unknown. Institutional care post SNF seems best option. Risperdal stopped 08/05 due to sedation and subsequently restarted at bedtime only. Dr Faria 08/08 felt [facility] psychiatry unit would be more appropriate than a care home facility. However very hard to find [facility] psych beds and with her medical conditions are likely to decline her. (2) UTI (urinary tract infection): Plan: Treated this admission with Cipro. Now resolved (3) Acute kidney injury superimposed on chronic kidney disease: Plan: has resolved. Monitor intake and output. Serial labs (4) Chronic, continuous use of opioids: Plan: Opioid dependent. Oxycodone being used sparingly (5) Weakness: Plan: With general debilitation. Not cooperating w PT/ OT. Prognosis poor (6) Hypothyroidism: Plan: Thyroid replacement therapy. TSH normal this admission (7) Afib: Plan: Pauses noted on telemetry. Cardiology consultation appreciated. No current need for permanent cardiac pacemaker. Digoxin, diltiazem, carvedilol have all been discontinued (8) Urine retention: Plan: On admission. Sheridan was initially placed and subsequently removed but she had retention again. Sheridan catheter was replaced and will remain indwelling for now. (9) Anemia: Plan: No overt GI bleeding. Stool Hemoccult pending. Serial labs Plan Anticipate eventual discharge to SNF facility. Level 2 determination pending with hopeful eventual discharge to [facility] Admission and Anticipated Discharge Date Admission Date: July 28, 2022 Subjective The patient is somnolent and nonverbal at the time of my examination. No apparent distress. Risperdal has been restarted at bedtime dosing only and seems to be well-tolerated so far. Review of Systems Review of Systems: Cannot assess review of systems at this time due to somnolence Physical Exam Physical Exam: General-somnolent and unarousable. HEENT-head atraumatic and normocephalic, pupils equal and reactive to light Neck-no lymphadenopathy or thyromegaly, trachea midline Chest-clear to auscultation anteriorly. No rales wheezing or rhonchi Cardiac-irregular rhythm consistent with atrial fibrillation. Controlled rate. Abdomen-normal bowel sounds, no hepatosplenomegaly Extremities-no cyanosis, clubbing, or edema Neuro-unable to assess Psych-unable to assess Results & Data Results & Data ([facility]) Vital Signs (Past 12 Hours) Vital Signs Temp Pulse Resp BP Pulse Ox O2 Del Method 08/13/22 11:32 Room Air 08/13/22 11:28 36.7 C 120 H 22 154/96 H 97 Room Air 08/13/22 07:26 36.5 C 118 H 24 128/84 100 Room Air 08/13/22 04:05 36.6 C 98 H 132/91 91 Room Air Laboratory Results 08/08/22 11:10 08/10/22 05:57 PG Care Time/CCT Total # of Minutes Spent Total Time Spent with Patient: Total time spent is greater than 50% in coordination of care (as documented) at patient's floor/unit and/or counseling patient: Coding Level of Care Code 39157 Subseq Hosp Care Lvl 3 Diagnoses Major neurocognitive disorder F03.90 UTI (urinary tract infection) N39.0 Acute kidney injury superimposed on chronic kidney disease N17.9; N18.9 Chronic, continuous use of opioids F11.90 Weakness R53.1 Hypothyroidism E03.9 Afib I48.91 Atrial fibrillation type: unspecified Urine retention R33.9 Anemia D64.9 (1) Afib Atrial fibrillation type: unspecified Qualified Code(s): I48.91 - Unspecified atrial fibrillation
[2022-08-13] MEDS: RIVAROXABAN 20 MG TAB PO SCH (17:29)
[2022-08-14] MEDS: LEVOTHYROXINE SODIUM 112 MCG TABLET PO SCH (06:29)
[2022-08-14] MEDS: DOCUSATE SODIUM 100 MG CAP PO SCH (08:43)
[2022-08-14] MEDS: POLYETHYLENE (MIRALAX) 17 GM PACK PO SCH (08:43)
[2022-08-14] MEDS: DICLOFENAC SOD 1% GEL 100 GM TUBE EXT SCH ×3 (08:43→17:27)
--- NOTE | 2022-08-14 14:30 | Hospitalist Progress Note ---
Date of Service August 14, 2022 Assessment & Plan (1) Major neurocognitive disorder: Plan: dementia with psychosis . Has been in a closed inpatient psychiatry facility in [place], [place] . Risperdal stopped 08/05 due to sedation and subsequently restarted at bedtime only. Dr Faria 08/08 felt [facility] psychiatry unit would be more appropriate than a custodial facility. However very hard to find [facility] psych beds and with her medical conditions are likely to decline her. (2) UTI (urinary tract infection): Plan: Treated this admission with Cipro. Now resolved (3) Acute kidney injury superimposed on chronic kidney disease: Plan: has resolved. Monitor intake and output. Serial labs (4) Chronic, continuous use of opioids: Plan: Uses oxycodone on a as needed basis at home according to her home medication profile. She is not showing any signs of pain or asking for oxycodone here. (5) Weakness: Plan: With general debilitation. Continue PT/ OT. (6) Hypothyroidism: Plan: Thyroid replacement therapy. TSH normal this admission (7) Afib: Plan: Pauses noted on telemetry earlier this admission. Cardiology consultation appreciated. No current need for permanent cardiac pacemaker. Digoxin, diltiazem, carvedilol have all been discontinued . No pauses noted on telemetry for the past 2 days. Telemetry will be discontinued today, August 14 (8) Urine retention: Plan: On admission. Sheridan was initially placed and subsequently removed but she had retention again. Sheridan catheter was replaced and will remain indwelling for now. (9) Anemia: Plan: No overt GI bleeding. Serial labs Plan Anticipate eventual discharge to SNF facility. Level 2 determination pending with hopeful eventual discharge to [facility] Admission and Anticipated Discharge Date Admission Date: July 28, 2022 Subjective The patient is alert and talking to me but she is disoriented. Telemetry was reviewed and there have been no pauses for 2 days. Telemetry discontinued because the patient continues to pull the wires off. Digoxin, diltiazem, carvedilol have been discontinued previously by cardiology. Atrial fibrillation rate runs between 101 110 but this will be acceptable for her. Son is at the bedside and asking for oxycodone for her but she is not in any pain nor is she asking for oxycodone. Review of Systems Review of Systems: Cannot assess review of systems at this time due to disorientation Physical Exam Physical Exam: General-awake and alert but confused HEENT-head atraumatic and normocephalic, pupils equal and reactive to light Neck-no lymphadenopathy or thyromegaly, trachea midline Chest-clear to auscultation anteriorly. No rales wheezing or rhonchi Cardiac-irregular rhythm consistent with atrial fibrillation. Controlled rate. Abdomen-normal bowel sounds, no hepatosplenomegaly Extremities-no cyanosis, clubbing, or edema Neuro-no apparent focal motor deficits Psych-confused but smiling and appropriate Results & Data Results & Data ([facility]) Vital Signs (Past 12 Hours) Vital Signs Temp Pulse Resp BP BP BP Pulse Ox 08/14/22 14:00 37.0 C 60 20 166/82 H 99 08/14/22 11:36 36.5 C 103 H 18 118/69 96 08/14/22 04:08 104 H 18 151/83 H 100 O2 Del Method 08/14/22 14:00 Room Air 08/14/22 11:36 Room Air 08/14/22 04:08 Room Air Laboratory Results 08/08/22 11:10 08/10/22 05:57 PG Care Time/CCT Total # of Minutes Spent Total Time Spent with Patient: Total time spent is greater than 50% in coordination of care (as documented) at patient's floor/unit and/or counseling patient: Coding Level of Care Code 20674 Subseq Hosp Care Lvl 3 Diagnoses Major neurocognitive disorder F03.90 UTI (urinary tract infection) N39.0 Acute kidney injury superimposed on chronic kidney disease N17.9; N18.9 Chronic, continuous use of opioids F11.90 Weakness R53.1 Hypothyroidism E03.9 Afib I48.91 Atrial fibrillation type: unspecified Urine retention R33.9 Anemia D64.9 (1) Afib Atrial fibrillation type: unspecified Qualified Code(s): I48.91 - Unspecified atrial fibrillation
[2022-08-14] MEDS: RIVAROXABAN 20 MG TAB PO SCH (17:27)
[2022-08-14] MEDS: MELATONIN 3 MG TAB PO PRN (20:23)
[2022-08-14] MEDS: risperiDONE 0.5 MG TABLET PO SCH (20:24)
[2022-08-14] MEDS: ACETAMINOPHEN 500 MG TAB PO PRN (23:47)
[2022-08-15] MEDS: LEVOTHYROXINE SODIUM 112 MCG TABLET PO SCH (04:47)
[2022-08-15] MEDS: DICLOFENAC SOD 1% GEL 100 GM TUBE EXT SCH ×3 (11:10→16:14)
[2022-08-15] MEDS: POLYETHYLENE (MIRALAX) 17 GM PACK PO SCH (11:10)
[2022-08-15] MEDS: DOCUSATE SODIUM 100 MG CAP PO SCH (11:14)
--- NOTE | 2022-08-15 14:13 | Hospitalist Progress Note ---
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 Has been in a closed inpatient psychiatry facility in [place], [place] . Risperdal stopped 08/05 due to sedation and subsequently restarted at bedtime only. Dr Faria 08/08 felt [facility] psychiatry unit would be more appropriate than a residential facility. However very hard to find [facility] psych beds and with her medical conditions are likely to decline her. (2) UTI (urinary tract infection): Plan: Treated this admission with Cipro. Now resolved (3) Acute kidney injury superimposed on chronic kidney disease: Plan: has resolved. Monitor intake and output. Serial labs (4) Chronic, continuous use of opioids: Plan: Uses oxycodone on a as needed basis at home according to her home medication profile. She is not showing any signs of pain or asking for oxycodone here. (5) Weakness: Plan: With general debilitation. Continue PT/ OT. (6) Hypothyroidism: Plan: Thyroid replacement therapy. TSH normal this admission (7) Afib: Plan: Pauses noted on telemetry earlier this admission. Cardiology consultation appreciated. No current need for permanent cardiac pacemaker. Digoxin, diltiazem, carvedilol have all been discontinued . No pauses noted on telemetry for the past 3 days. Telemetry was discontinued on August 14 because she kept pulling the wires off (8) Urine retention: Plan: On admission. Sheridan was initially placed and subsequently removed but she had retention again. Sheridan catheter was replaced and will remain indwelling for now. (9) Anemia: Plan: No overt GI bleeding. Serial labs Plan Anticipate eventual discharge to SNF facility. Level 2 determination pending with hopeful eventual discharge to [facility] Admission and Anticipated Discharge Date Admission Date: July 28, 2022 Subjective Alert and pleasant. Facial skin discoloration due to some type of medication taking earlier in her lifetime. Atrial fibrillation ventricular rate variable between 60 and 110. Digoxin, diltiazem, carvedilol have been discontinued by cardiology. No need for pacemaker at this time. Sheridan catheter remains in place due to persistent urinary retention. Review of Systems Review of Systems: Cannot assess review of systems at this time due to disorientation Physical Exam Physical Exam: General-awake and alert but confused HEENT-head atraumatic and normocephalic, pupils equal and reactive to light Neck-no lymphadenopathy or thyromegaly, trachea midline Chest-clear to auscultation anteriorly. No rales wheezing or rhonchi Cardiac-irregular rhythm consistent with atrial fibrillation. Controlled rate. Abdomen-normal bowel sounds, no hepatosplenomegaly Extremities-no cyanosis, clubbing, or edema Neuro-no apparent focal motor deficits Psych-confused but smiling and appropriate Results & Data Results & Data ([facility]) Vital Signs (Past 12 Hours) Vital Signs Temp Pulse Resp BP BP Pulse Ox O2 Del Method 08/15/22 07:58 36.6 C 111 H 22 136/76 98 Room Air 08/15/22 07:06 36.7 C 73 18 153/83 H Room Air Laboratory Results 08/08/22 11:10 08/10/22 05:57 PG Care Time/CCT Total # of Minutes Spent Total Time Spent with Patient: Total time spent is greater than 50% in coordination of care (as documented) at patient's floor/unit and/or counseling patient: Coding Level of Care Code 25997 Subseq Hosp Care Lvl 2 Diagnoses Major neurocognitive disorder F03.90 UTI (urinary tract infection) N39.0 Acute kidney injury superimposed on chronic kidney disease N17.9; N18.9 Chronic, continuous use of opioids F11.90 Weakness R53.1 Hypothyroidism E03.9 Afib I48.91 Atrial fibrillation type: unspecified Urine retention R33.9 Anemia D64.9 (1) Afib Atrial fibrillation type: unspecified Qualified Code(s): I48.91 - Unspecified atrial fibrillation
[2022-08-15] MEDS: RIVAROXABAN 20 MG TAB PO SCH (17:58)
[2022-08-15] MEDS: risperiDONE 0.5 MG TABLET PO SCH (20:18)
[2022-08-16] MEDS: LEVOTHYROXINE SODIUM 112 MCG TABLET PO SCH (05:44)
--- NOTE | 2022-08-16 09:50 | Hospitalist Progress Note ---
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 Has been in a closed inpatient psychiatry facility in [place], [place] . Risperdal stopped 08/05 due to sedation and subsequently restarted at bedtime only. Dr Faria 08/08 felt [facility] psychiatry unit would be more appropriate than a halfway facility. However very hard to find [facility] psych beds and with her medical conditions are likely to decline her. (2) UTI (urinary tract infection): Plan: Treated this admission with Cipro. Now resolved (3) Acute kidney injury superimposed on chronic kidney disease: Plan: has resolved. Monitor intake and output. Serial labs (4) Chronic, continuous use of opioids: Plan: Uses oxycodone on a as needed basis at home according to her home medication profile. She is not showing any signs of pain or asking for oxycodone here. (5) Weakness: Plan: With general debilitation. Continue PT/ OT. (6) Hypothyroidism: Plan: Thyroid replacement therapy. TSH normal this admission (7) Afib: Plan: Pauses noted on telemetry earlier this admission. Cardiology consultation appreciated. No current need for permanent cardiac pacemaker. Digoxin, diltiazem, carvedilol have all been discontinued . No pauses noted on telemetry for the past 3 days. Telemetry was discontinued on August 14 because she kept pulling the wires off (8) Urine retention: Plan: On admission. Sheridan was initially placed and subsequently removed but she had retention again. Sheridan catheter was replaced and will remain indwelling for now. (9) Anemia: Plan: No overt GI bleeding. Serial labs Plan Anticipate eventual discharge to SNF facility. 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, 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 in exam as usual Results & Data Results & Data ([facility]) Vital Signs (Past 12 Hours) Vital Signs Temp Pulse Resp BP Pulse Ox O2 Del Method 08/16/22 07:52 36.5 C 107 H 18 171/81 H 97 Room Air 08/16/22 04:56 37.1 C 99 H 20 143/99 H 94 Room Air PG Care Time/CCT Total # of Minutes Spent Total Time Spent with Patient: Total time spent is greater than 50% in coordination of care (as documented) at patient's floor/unit and/or counseling patient: Coding Diagnoses Major neurocognitive disorder F03.90 UTI (urinary tract infection) N39.0 Acute kidney injury superimposed on chronic kidney disease N17.9; N18.9 Chronic, continuous use of opioids F11.90 Weakness R53.1 Hypothyroidism E03.9 Afib I48.91 Atrial fibrillation type: unspecified Urine retention R33.9 Anemia D64.9 (1) Afib Atrial fibrillation type: unspecified Qualified Code(s): I48.91 - Unspecified atrial fibrillation
[2022-08-16] MEDS: POLYETHYLENE (MIRALAX) 17 GM PACK PO SCH (10:00)
[2022-08-16] MEDS: DOCUSATE SODIUM 100 MG CAP PO SCH (10:00)
[2022-08-16] MEDS: DICLOFENAC SOD 1% GEL 100 GM TUBE EXT SCH ×3 (10:00→17:00)
--- NOTE | 2022-08-16 12:05 | Communication Note ---
Date of Service: August 16, 2022 interim progress reviewed, was sleeping this am during rounds, did not awake easily so given no acute agitation/nursing concerns allowed to rest. Has been more alert overall with hs only dosing of Risperdal. Less restless/confused but oriented to name only. Patient has resolving scabs from skin picking. No additional recs at this time. Dr. Faria to assume clinical responsibility for service on 08/17/22.
[2022-08-16] MEDS: ACETAMINOPHEN 500 MG TAB PO PRN ×2 (12:39→20:11)
[2022-08-16] MEDS: RIVAROXABAN 20 MG TAB PO SCH (17:56)
[2022-08-16] MEDS: risperiDONE 0.5 MG TABLET PO SCH (20:12)
[2022-08-17] MEDS: ACETAMINOPHEN 500 MG TAB PO PRN (04:20)
[2022-08-17] MEDS: LEVOTHYROXINE SODIUM 112 MCG TABLET PO SCH (06:22)
[2022-08-17] MEDS: DICLOFENAC SOD 1% GEL 100 GM TUBE EXT SCH ×3 (07:46→15:12)
[2022-08-17] MEDS: POLYETHYLENE (MIRALAX) 17 GM PACK PO SCH (07:46)
[2022-08-17] MEDS: DOCUSATE SODIUM 100 MG CAP PO SCH (07:47)
[2022-08-17] MEDS: amLODIPine BESYLATE 5 MG TAB PO SCH (07:48)
--- NOTE | 2022-08-17 15:07 | Hospitalist Progress Note ---
Date of Service August 17, 2022 Assessment & Plan (1) Left upper extremity swelling: Plan: CBC normal. Looks like an ecchymosis more than cellulitis. Elevate arm The patient has not indicating any discomfort DVT unlikely since the patient has been on Xarelto. No imaging plan at the moment. Will watch (2) Major neurocognitive disorder: Plan: dementia with psychosis . Has been in a closed inpatient psychiatry facility in [place], [place] . Risperdal stopped 08/05 due to sedation and subsequently restarted at bedtime only. Dr Faria 08/08 felt [facility] psychiatry unit would be more appropriate than a care home facility. However very hard to find [facility] psych beds and with her medical conditions are likely to decline her. Risperdal 0.25 mg hs Not needing any antipsychotic the last 2 days such as Zyprexa Not needed her as needed alprazolam since yesterday morning (3) UTI (urinary tract infection): Plan: Treated this admission with Cipro. Now resolved (4) Acute kidney injury superimposed on chronic kidney disease: Plan: has resolved. Monitor intake and output. Serial labs (5) Chronic, continuous use of opioids: Plan: Uses oxycodone on a as needed basis at home according to her home medication profile. She is not showing any signs of pain or asking for oxycodone here. (6) Weakness: Plan: With general debilitation. No potential for physical therapy as the patient is not cooperative (7) Hypothyroidism: Plan: Thyroid replacement therapy. TSH normal this admission (8) Afib: Plan: Pauses noted on telemetry earlier this admission. Cardiology consultation appre ciated. No current need for permanent cardiac pacemaker. Digoxin, diltiazem, carvedilol have all been discontinued . No pauses noted on telemetry for the past 3 days. Telemetry was discontinued on August 14 because she kept pulling the wires off (9) Urine retention: Plan: On admission. Sheridan was initially placed and subsequently removed but she had retention again. Sheridan catheter was replaced and will remain indwelling for now. (10) Anemia: Plan: fecal occult blood positive. Has had a 2 g drop in hemoglobin in the last 4 months On Xarelto for A. fib which will be continued Plan Hospital day 21. The patient has got progressively debilitated, has significant cognitive impairment and an undiagnosed psychiatric disorder causing intermittent agitation. She is anemic with an occult GI bleed P.o. intake and is insufficient and she is persistently tachycardic. I spoke with her son Josue at the bedside today and mentioned hospice as an option. He and his brother are both medical cm of tax associate attorney I have requested a meeting with both of them tomorrow to plan care going forward. Anticipate eventual discharge to SNF facility. Level 2 determination pending with hopeful eventual discharge to [facility] Admission and Anticipated Discharge Date Admission Date: July 28, 2022 Subjective at 1050 h and then again at 1330 h when son Josue came, patient was seen The first visit, she smiled and made eye contact, which to me Luzmaria Casey and told me she had 2 sons but could not name them. She was following commands intermittently and was awake had no complaints She was asleep and only opening eyes to touch in the second visit and did not talk to her son today Left arm swelling and redness noted last night and ice was applied and the arm elevated. 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 exam this morning Extremities left forearm is swollen 3+ pitting edema proximally, purple discoloration ecchymosis like on the lateral aspect on the extensor side Nontender, the ecchymosis is confluent with the more erythematous area with slight warmth medially Results & Data Results & Data ([facility]) Vital Signs (Past 12 Hours) Vital Signs Temp Pulse Resp BP Pulse Ox O2 Del Method 08/17/22 14:23 37.2 C 112 H 12 146/83 H 99 Room Air 08/17/22 06:30 36.5 C 95 H 20 164/93 H 96 Room Air Laboratory Results Abnormal lab results 08/17/22 Range/Units 15:39 WBC 4.40 L (4.8-10.8) K/ul RBC 3.01 L (3.93-5.22) M/uL Hgb 9.7 L (12.0-16.0) g/dl Hct 29.7 L (34.1-44.9) % RDW Std Deviation 53.8 H (36.4-46.3) fL RDW Coeff of [place] 14.9 H (11.5-14.5) % Lymph # (Auto) 0.97 L (1.2-3.4) K/uL Medications Administered Home Medications Medication Instructions Recorded Confirmed Last Taken levothyroxine 112 mcg tablet 112 mcg PO QAM 11/30/18 04/06/22 04/05/22 (Synthroid) digoxin 125 mcg (0.125 mg) tablet 125 mcg PO PM 07/07/19 04/06/22 04/05/22 (Lanoxin) diltiazem HCl 180 mg 180 mg PO QAM 12/11/19 04/06/22 04/05/22 capsule,extended release 24 hr (Cartia XT) lisinopril 40 mg tablet (Zestril) 40 mg PO QAM 12/11/19 04/06/22 04/05/22 carvedilol 25 mg tablet (Coreg) 25 mg PO BID 04/22/20 04/06/22 04/05/22 acetaminophen 500 mg tablet 1,000 mg PO Q6 PRN Pain 04/30/21 04/06/22 10/23/21 (Tylenol Extra Strength) rivaroxaban 20 mg tablet (Xarelto) 20 mg PO PM 06/03/21 04/06/22 04/05/22 benzonatate 100 mg capsule 100 mg PO TID PRN Cough 06/20/21 04/06/22 10/23/21 duloxetine 30 mg capsule,delayed 30 mg PO DAILY #30 caps 11/05/21 04/06/22 04/05/22 release (Cymbalta) alprazolam 0.5 mg tablet 0.5 mg PO TID PRN Anxiety 12/15/21 04/06/22 04/05/22 cyproheptadine 2 mg/5 mL oral syrup 2 mg PO DAILY PRN ALLERGIES 12/15/21 04/06/22 Unknown dexamethasone 0.5 mg/5 mL oral 1 mg PO DAILY 12/15/21 04/06/22 04/05/22 solution docusate sodium 100 mg capsule 200 mg PO DAILY 12/15/21 04/06/22 04/05/22 (Colace) melatonin 1 mg tablet 1 mg PO HS PRN Sleep 12/15/21 04/06/22 Unknown ondansetron 4 mg disintegrating 4 mg PO BID PRN nausea and vomiting 12/15/21 04/06/22 Unknown tablet clindamycin HCl 150 mg capsule 150 mg PO QID 04/06/22 04/06/22 04/05/22 furosemide 40 mg tablet 40 mg PO DAILY 04/06/22 04/06/22 04/05/22 oxycodone 5 mg tablet 5 mg PO Q6H PRN Pain 04/06/22 04/06/22 Unknown Active Medications Generic Name Dose Route Start Last Admin Trade Name Freq PRN Reason Stop Dose Admin Acetaminophen 1,000 mg 07/28/22 10:50 08/17/22 04:20 Acetaminophen 500 Mg Tab PO 08/27/22 10:49 1,000 mg Q6 PRN Administration Pain Amlodipine Besylate 5 mg 08/17/22 09:00 08/17/22 07:48 Amlodipine Besylate 5 Mg Tab PO 09/16/22 08:59 5 mg QAM JENNY Administration Diclofenac Sodium 2 gm 08/02/22 08:00 08/17/22 15:12 Diclofenac Sod 1% Gel 100 Gm Tube EXT 09/01/22 07:59 Not Given [id number] JENNY Protocol Docusate Sodium 200 mg 07/29/22 09:00 08/17/22 07:47 Docusate Sodium 100 Mg Cap PO 08/28/22 08:59 Not Given DAILY JENNY Levothyroxine Sodium 112 mcg 07/30/22 16:30 08/17/22 06:22 Levothyroxine Sodium 112 Mcg Tablet PO 08/29/22 15:44 112 mcg DAILYBB JENNY Administration Melatonin 3 mg 08/10/22 17:11 08/14/22 20:23 Melatonin 3 Mg Tab PO 09/06/22 20:59 3 mg HS PRN Administration insomnia Polyethylene Glycol 17 gm 07/31/22 09:00 08/17/22 07:46 Polyethylene (Miralax) 17 Gm Pack PO 08/30/22 08:59 Not Given DAILY JENNY Risperidone 0.25 mg 08/13/22 21:00 08/16/22 20:12 Risperidone 0.5 Mg Tablet PO 09/12/22 20:59 0.25 mg HS JENNY Administration Rivaroxaban 20 mg 07/31/22 16:30 08/17/22 16:28 Rivaroxaban 20 Mg Tab PO 08/30/22 16:29 Not Given QDD [facility] PG Care Time/CCT Total # of Minutes Spent Total Time Spent with Patient: Total time spent is greater than 50% in coordination of care (as documented) at patient's floor/unit and/or counseling patient: Coding Level of Care Code 69073 Subseq Hosp Care Lvl 3 Diagnoses Left upper extremity swelling M79.89 Major neurocognitive disorder F03.90 UTI (urinary tract infection) N39.0 Acute kidney injury superimposed on chronic kidney disease N17.9; N18.9 Chronic, continuous use of opioids F11.90 Weakness R53.1 Hypothyroidism E03.9 Afib I48.91 Atrial fibrillation type: unspecified Urine retention R33.9 Anemia D64.9 Comment Half hour extra time with repeat evaluation of patient in the afternoon and d/w family (1) Afib Atrial fibrillation type: unspecified Qualified Code(s): I48.91 - Unspecified atrial fibrillation
[2022-08-17 15:56] LABS: Basophils # (auto) 0.05 K/uL (0-0.2); Basophils % (auto) 1.1 %; Eosinophils # (auto) 0.09 K/uL (0-0.50); Hematocrit (blood only) 29.7 % (34.1-44.9); Hemoglobin 9.7 g/dl (12.0-16.0); Immature Granulocytes # (auto) 0.02 K/uL (0.00-0.02); Immature Granulocytes % (auto) 0.5 %; Lymphocytes # (auto) 0.97 K/uL (1.2-3.4); Mean Corpuscular Hemoglobin 32.2 pg (25.0-34.0); Mean Corpuscular Hgb Conc 32.7 g/dL (32.0-36.0); Mean Corpuscular Volume 98.7 fL (80.0-100.0); Mean Platelet Volume 9.9 fL (9.4-12.3); Monocytes # (auto) 0.76 K/uL (0.24-0.82); Monocytes % (auto) 17.3 %; Neutrophils # (auto) 2.51 K/uL (1.4-6.5); Neutrophils % (auto) 57.1 %; Platelet Count 388 K/uL (130-400); RDW Coefficient of Variation 14.9 % (11.5-14.5); RDW Standard Deviation 53.8 fL (36.4-46.3); Red Blood Count 3.01 M/uL (3.93-5.22)
[2022-08-17] MEDS: RIVAROXABAN 20 MG TAB PO SCH ×2 (16:26→16:28)
[2022-08-17] MEDS: risperiDONE 0.5 MG TABLET PO SCH (20:01)
[2022-08-18] MEDS: LEVOTHYROXINE SODIUM 112 MCG TABLET PO SCH (06:00)
[2022-08-18] MEDS: amLODIPine BESYLATE 5 MG TAB PO SCH (08:09)
[2022-08-18] MEDS: POLYETHYLENE (MIRALAX) 17 GM PACK PO SCH (08:09)
[2022-08-18] MEDS: DOCUSATE SODIUM 100 MG CAP PO SCH (08:09)
[2022-08-18] MEDS: DICLOFENAC SOD 1% GEL 100 GM TUBE EXT SCH ×3 (08:09→15:27)
[2022-08-18] MEDS: ACETAMINOPHEN 500 MG TAB PO PRN (13:07)
[2022-08-18] MEDS: RIVAROXABAN 20 MG TAB PO SCH (17:25)
--- NOTE | 2022-08-18 18:33 | Hospitalist Progress Note ---
Date of Service August 18, 2022 Assessment & Plan (1) Left upper extremity swelling: Plan: Seen 08/16 night CBC normal. Looks like an ecchymosis more than cellulitis. Improving now The patient has not indicating any discomfort DVT unlikely since the patient has been on Xarelto. 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 Has been in a closed inpatient psychiatry facility in [place], [place] . Risperdal stopped 08/05 due to sedation and subsequently restarted at bedtime only. Dr Faria 08/08 felt [facility] psychiatry unit would be more appropriate than a group home facility. However very hard to find [facility] psych beds and with her medical conditions are likely to decline her. Risperdal 0.25 mg hs Not needing any antipsychotic the last 3 days such as Zyprexa Not needed her as needed alprazolam since 08/16 (3) UTI (urinary tract infection): Plan: Treated this admission with Cipro. Now resolved (4) Acute kidney injury superimposed on chronic kidney disease: Plan: has resolved. Monitor intake and output. Serial labs (5) Chronic, continuous use of opioids: Plan: Uses oxycodone on a as needed basis at home according to her home medication profile. She is not showing any signs of pain or asking for oxycodone here. (6) Weakness: Plan: With general debilitation. No potential for physical therapy as the patient is not cooperative (7) Hypothyroidism: Plan: Thyroid replacement therapy. TSH normal this admission (8) Afib: Plan: Pauses noted on telemetry earlier this admission. Cardiology consultation earlier this month. No current need for permanent cardiac pacemaker. Digoxin, diltiazem, carvedilol have all been discontinued . No pauses noted on telemetry for the past 3 days. Telemetry was discontinued on August 14 because she kept pulling the wires off (9) Urine retention: Plan: On admission. Sheridan was initially placed and subsequently removed but she had retention again. Sheridan catheter was replaced and will remain indwelling for now. Start Flomax (10) Anemia: Plan: fecal occult blood positive. Has had a 2 g drop in hemoglobin in the last 4 months On Xarelto for A. fib which will be continued and CBC closely followed Plan Hospital day 22. The patient has got progressively debilitated, has significant cognitive impairment and an undiagnosed psychiatric disorder causing intermittent agitation. She is anemic with an occult GI bleed P.o. intake and is insufficient and she is persistently tachycardic. I spoke with her son Josue at the bedside 08/17 and on phone 08/18 regarding addressing CODE STATUS and possible hospice. He and his brother Yaya are both medical cm of tax associate attorney The patient was DNR until a few months ago and was thinking of being a DNR again. Yaya was bit busy this week because he works for [employer]. A family meeting needs to be arranged preferably before SNF transfer Have conveyed to Josue that she has an occult GI bleed and her hemoglobin is 4 and fallen 4 g. We just following it periodically at this time . Anticipate eventual discharge to SNF facility. [facility] has declined. Several other referrals in placereviewed case management notes today with Josue Admission and Anticipated Discharge Date Admission Date: July 28, 2022 Subjective At 1015, the patient was sitting up and making eye contact. She was complaining of pain and that was her main subject of conversation. She was pointing all across her abdomen by placing both palms on the abdomen and, she could name her 2 sons. 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 Extremities left forearm swelling is down to about 1+, ecchymosis over the upper arm on the medial aspect of the flexor side, Results & Data Results & Data ([facility]) Vital Signs (Past 12 Hours) Vital Signs Temp Pulse Resp BP Pulse Ox O2 Del Method 08/18/22 15:59 36.7 C 114 H 16 159/85 H 97 Room Air 08/18/22 08:25 36.7 C 112 H 16 159/85 H 96 Room Air Laboratory Results No labs Medications Administered Reviewedlast 3 days no Xanax PG Care Time/CCT Total # of Minutes Spent Total Time Spent with Patient: Total time spent is greater than 50% in coordination of care (as documented) at patient's floor/unit and/or counseling patient: Coding Level of Care Code 22788 Subseq Hosp Care Lvl 2 Diagnoses Left upper extremity swelling M79.89 Major neurocognitive disorder F03.90 UTI (urinary tract infection) N39.0 Acute kidney injury superimposed on chronic kidney disease N17.9; N18.9 Chronic, continuous use of opioids F11.90 Weakness R53.1 Hypothyroidism E03.9 Afib I48.91 Atrial fibrillation type: unspecified Urine retention R33.9 Anemia D64.9 (1) Afib Atrial fibrillation type: unspecified Qualified Code(s): I48.91 - Unspecified atrial fibrillation
[2022-08-18] MEDS: risperiDONE 0.5 MG TABLET PO SCH (20:17)
[2022-08-18] MEDS ORDERED: oxyCODONE HCL IR 5 MG TAB (IMMEDIATE RELEASE) PO SCH (21:00)
[2022-08-19] MEDS: ACETAMINOPHEN 500 MG TAB PO PRN ×3 (00:11→15:54)
[2022-08-19] MEDS: LEVOTHYROXINE SODIUM 112 MCG TABLET PO SCH (06:16)
[2022-08-19] MEDS: DICLOFENAC SOD 1% GEL 100 GM TUBE EXT SCH ×2 (08:40→12:27)
[2022-08-19] MEDS: amLODIPine BESYLATE 5 MG TAB PO SCH (08:40)
[2022-08-19] MEDS: POLYETHYLENE (MIRALAX) 17 GM PACK PO SCH (08:41)
[2022-08-19] MEDS: DOCUSATE SODIUM 100 MG CAP PO SCH (08:41)
[2022-08-19] MEDS ORDERED: ALUMINUM/MAGNESIUM SUSP 30 ML UDC PO STA (13:10)
[2022-08-19] MEDS ORDERED: PANTOprazole 40 MG TAB PO SCH (13:15)
[2022-08-19 14:38] LABS: Basophils # (auto) 0.04 K/uL (0-0.2); Basophils % (auto) 0.9 %; Eosinophils # (auto) 0.08 K/uL (0-0.50); Eosinophils % (auto) 1.7 %; Hematocrit (blood only) 34.5 % (34.1-44.9); Hemoglobin 10.9 g/dl (12.0-16.0); Immature Granulocytes # (auto) 0.01 K/uL (0.00-0.02); Immature Granulocytes % (auto) 0.2 %; Lymphocytes # (auto) 1.02 K/uL (1.2-3.4); Lymphocytes % (auto) 21.7 %; Mean Corpuscular Hemoglobin 31.2 pg (25.0-34.0); Mean Corpuscular Hgb Conc 31.6 g/dL (32.0-36.0); Mean Corpuscular Volume 98.9 fL (80.0-100.0); Mean Platelet Volume 9.8 fL (9.4-12.3); Monocytes # (auto) 0.61 K/uL (0.24-0.82); Neutrophils # (auto) 2.94 K/uL (1.4-6.5); Neutrophils % (auto) 62.5 %; Platelet Count 415 K/uL (130-400); RDW Coefficient of Variation 14.9 % (11.5-14.5); RDW Standard Deviation 54.3 fL (36.4-46.3); Red Blood Count 3.49 M/uL (3.93-5.22)
[2022-08-19 15:02] LABS: Albumin Globulin Ratio 1.2 (0.9-2); Albumin Level 3.6 gm/dl (3.4-5.0); BUN Creatinine Ratio 15.9 (10-20); Bilirubin,Total 1.4 mg/dl (0.2-1.0); Creatinine Clr Calc Pharmacy 84.2 ml/min; Est GFR (African American) 98.7 ml/min; Est GFR (Non-African American) 85.2 ml/min; Globulin 2.9 gm/dl (2.5-4.0); Potassium 3.6 mmol/L (3.5-5.1); Total Protein 6.5 gm/dl (6.0-8.3)
[2022-08-19] MEDS ORDERED: MULTIVITAMIN TAB PO SCH (15:30)
--- NOTE | 2022-08-19 15:37 | Discharge Summary ---
Date of Service August 19, 2022 Admission HPI Per Admitting Provider Chief Complaint: Weakness, altered mental status Primary Care Provider: Qasim Rangel MD Patient is a 77-year-old female with extensive past medical history including recurrent UTIs, chronic pain syndromes, CKD 3, A. fib anticoagulated on Xarelto, hypothyroidism, pulmonary hypertension, cardiomyopathy, CHF, TIA, psychiatric issues, and hyponatremia. Patient was brought to the emergency department as she has had increasing confusion and weakness over the past week. She was found on the ground after what appeared to be sliding out of her chair at home. She lives with her son who is her primary canopy stringer. Other stork information was initially limited secondary to patient's altered mental status. Laboratory suggests UTI. CT head and cervical spine without acute findings. Chest x-ray demonstrates no acute findings. She was treated with IV Rocephin and received IV fluids. She was noted to have an POPPY on CKD 3, but otherwise without other significant laboratory findings. Upon my evaluation in the emergency department, the patient is confused and somnolent. She does awaken to stimuli. She is unable to provide historical information. Patient son does eventually present to bedside. He reports that his mom recently had a long stay at a jail in [facility]. Some medications were changed at that point to include paliperidone. He confirms that she does take a number psychiatric medicines and sleep aids, however she is not taking her sleep medication for the past few weeks secondary to increasing confusion. Otherwise, he reports that she has been getting her medications as prescribed. He reports that she has not had any significant complaints lately, but he does suggest that she may be experiencing some symptoms as she typically likes her room cold, however she is have the heat up relatively high as of recently. Son states that he and his brother act as medical power of trust and estates attorney's. Principal Diagnosis Acute encephalopathy, UTI, urinary retention, fall, major neurocognitive disorder with psychosis Discharge Exam Vitals reviewed Gen: AAOx2, NAD, flat affect HEENT: Anicteric sclerae, EOMI, facial skin with pigmented gold rash CV: Irregularly irregular, normal rate no mgr nl S1S2 Pulm: CTAB no wcr Abd: +BS soft NT ND no masses or hernias Ext: Left forearm with some ecchymosis in the upper arm and edema in the forearm Skin: No rashes, warm/dry Neuro: Full strength throughout Discharge Data Allergies Allergy/AdvReac Type Severity Reaction Status Date / Time gabapentin Allergy Unknown MULTIPLE Verified 12/15/21 18:51 REACTIONS "COULD GO ON AND ON" - SEE NOTES codeine AdvReac Intermediate SEVERE GI Verified 12/15/21 18:51 SYMPTOMS Consultations 07/28/22 08:24 ED Decision to Admit Stat 07/28/22 15:30 Consult Cardiology Routine 08/02/22 12:09 Consult Psychiatry Routine 08/03/22 18:53 Consult Cardiology Routine 08/06/22 08:43 Consult Cardiology Routine 08/12/22 14:49 Consult Neurology Routine Ordered Studies 07/28/22 06:03 CT cervical spine wo con Stat CT head/brain wo con Stat Hospital Course (1) Acute encephalopathy: Presented with a fall and increased confusion after recent psychiatric inpatient stay. Found to have a UTI as well as acute kidney injury superimposed on chronic kidney disease. She also takes opioids at home which could be contributing She had urinary retention as well. Could be medication side effect from recent psychiatric medications being adjusted Also strongly feel that this could have been secondary to withdrawal from alprazolam which she had been prescribed for quite some time but then at some point recently was taken off of this Was given a few doses here and there throughout this hospitalization but none in the last week and doing better Seem to be much improved by the day of discharge, no further hallucinations and was calm and cooperative. Treated UTI with antibiotics (2) Left upper extremity swelling: Secondary to fall most likely, with edema and ecchymosis Is on Xarelto Elevate limb (3) Major neurocognitive disorder: dementia with psychosis . Has been in a closed inpatient psychiatry facility in [place], [place] . Risperdal stopped 08/05 due to sedation and subsequently restarted at bedtime only. Risperdal 0.25 mg hs Not needing any antipsychotic the last 4 days such as Zyprexa Permanently discontinued benzodiazepines (4) UTI (urinary tract infection): Treated this admission with Cipro. Now resolved (5) Acute kidney injury superimposed on chronic kidney disease: has resolved (6) Chronic, continuous use of opioids: Uses oxycodone on a as needed basis at home according to her home medication profile. Okay to continue as needed oxycodone for chronic pain (7) Weakness: Needs physical therapy (8) Hypothyroidism: Thyroid replacement therapy. TSH normal this admission (9) Afib: Pauses noted on telemetry earlier this admission. Cardiology consultation earlier this month. No current need for permanent cardiac pacemaker. Digoxin, diltiazem, carvedilol have all been discontinued . No pauses noted on telemetry for the past 3 days. Telemetry was discontinued on August 14 because she kept pulling the wires off On Xarelto for anticoagulation (10) Urine retention: On admission. Sheridan was initially placed and subsequently removed but she had retention again. Sheridan catheter was replaced and had a trial of void the day of discharge Started on Flomax Monitor after discharge at rehab (11) Anemia: 08/15 fecal occult blood positive. Has had a 2 g drop in hemoglobin in the last 4 months On Xarelto for A. fib which will be continued and CBC closely followed Follow CBC as an outpatient and may need GI work-up Plan Much improved, stable for discharge to rehab Total Time Total Time Spent Total Time Spent (In Minutes): 40 minutes Discharge Plan Discharge Items Patient Disposition: Transfer Detention Fac Reason For Visit: UTI,AMS Discharge Diagnosis: Acute encephalopathy, UTI, Anemia Condition on Discharge: Fair Activity: As commented below Lifting: Gradually increase as tolerated Bathing: No limitations Exercise/Sports: Gradually increase as tolerated Non-emergency contact: Primary Care Provider Call non-emergency contact if: you have any medication questions and your symptoms worsen Follow-up/Referrals: Qasim Rangel MD [Primary Care Provider] - Diet: Heart Healthy Addtl Attending Provider Instructions: You were admitted with confusion that was secondary to a UTI but also may be from withdrawal from xanax. You were weaned off xanax this admission and should not go back on it. Your PCP may want to consider starting Remeron at bedtime for an appetite stimulant as well as for mood issues.Your UTI was treated with antibiotics. You were started on Risperdal which worked well for some of your agitation. You were also found to be anemic and had microscopic blood found in your stool. You should follow up with a Project Buyer to discuss having an EGD and colonoscopy to look for source of bleeding especially because of the heartburn you had. You were started on Protonix for the heartburn. Please have your doctor check your blood count and kidney function in 3-5 days. You were having issues with urinary retention. You should have another trial of void with removal of the Sheridan catheter in 2-3 more days. You also had some lower heart rates at times and your diltiazem and Coreg were stopped. Your heart rate then went up above 100 so the Coreg was restarted but at a much lower dose of 3.125mg twice a day. The digoxin was also stopped. For your blood pressure, you were started on amlodipine. Pending Studies at Discharge: Yes (Vitamin B1 level) Stand-Alone Forms: My [facility] Skilled Items Patient informed of condition?: Yes DNR: No Discharge Level of Care: Skilled Communicable Disease: No Discharge Prognosis: Improving Lines: None Urinary Catheter: Yes Medications and DC Order Prescriptions: New amlodipine [Norvasc] 5 mg Tablet 5 mg PO QAM Qty: 30 0RF risperidone 0.5 mg Tablet 0.25 mg PO HS Qty: 15 0RF pantoprazole 40 mg Tablet,Delayed Release (Dr/Ec) 40 mg PO QAM Qty: 30 0RF polyethylene glycol 3350 [Miralax] 17 gram Powder In Packet 17 g PO DAILY Qty: 30 0RF thiamine HCl (vitamin B1) 100 mg Tablet 200 mg PO QAM Qty: 60 0RF multivitamin with folic acid [Daily-Errol (with folic acid)] 400 mcg Tablet 1 tab PO QAM Qty: 30 0RF carvedilol [Coreg] 3.125 mg tablet 3.125 mg PO BID Qty: 60 0RF Rx Instructions: must administer with a meal/food Continued duloxetine [Cymbalta] 30 mg capsule,delayed release(DR/EC) 30 mg PO DAILY Qty: 30 2RF levothyroxine [Synthroid] 112 mcg tablet 112 mcg PO QAM Xarelto 20 mg Tablet 20 mg PO PM cyproheptadine 2 mg/5 mL Syrup 2 mg PO DAILY PRN (Reason: ALLERGIES) docusate sodium [Colace] 100 mg Capsule 200 mg PO DAILY melatonin 1 mg Tablet 1 mg PO HS PRN (Reason: Sleep) ondansetron 4 mg tablet,disintegrating 4 mg PO BID PRN (Reason: nausea and vomiting) oxycodone 5 mg tablet 5 mg PO Q6H PRN (Reason: Pain) Qty: 10 0RF acetaminophen [Tylenol Extra Strength] 500 mg Tablet 1,000 mg PO Q6 PRN (Reason: Pain) furosemide 40 mg tablet 40 mg PO DAILY Discontinued digoxin [Lanoxin] 125 mcg (0.125 mg) tablet 125 mcg PO PM Rx Instructions: TAKES AT 1600 carvedilol [Coreg] 25 mg tablet 25 mg PO BID Rx Instructions: Must administer with a meal/food diltiazem HCl [Cartia XT] 180 mg capsule,extended release 24hr 180 mg PO QAM lisinopril [Zestril] 40 mg tablet 40 mg PO QAM dexamethasone 0.5 mg/5 mL solution 1 mg PO DAILY alprazolam 0.5 mg tablet 0.5 mg PO TID PRN (Reason: Anxiety) benzonatate 100 mg capsule 100 mg PO TID PRN (Reason: Cough) clindamycin HCl 150 mg capsule 150 mg PO QID Rx Instructions: Started 03/29/22, to take for 14 days Discharge Orders: Discharge Order (Routine); Ordered 08/19/22 Ordered By: Lali Coates Admission Data Admit Date/Time: 07/28/22 10:31 Attending Provider: Lali Coates Admit Provider: Mo Hamilton Primary Care Provider: Qasim Rangel Other Providers: Qasim Casillas ; [facility] ; [facility], ; Abbe Shah ; Mo Hamilton ; Ella Faria ; Essence Nicole ; Roland Hutchins ; Jose Beasley ; Shane Hamm ; Michael Li ; Lauri Salas Jr ; Gila Parks ; Nicole Wing ; Jose Guadalupe Duong ; Parker Mann ; Darrell Galeano Jennifer M. ; Addie Hollingsworth ; Flash Mariano ; Virgil Rehman ; Gregorio France ; Shane Calixto V. ; Ming Villasenor ; Darrell William ; [facility] Other Interventions: Discharge Summary Assessment (RN) Last Done: 08/19/22 16:02 Coding Level of Care Code D/C DAY MANAGEMENT >30 MINS Diagnoses Acute encephalopathy G93.40 Left upper extremity swelling M79.89 Major neurocognitive disorder F03.90 UTI (urinary tract infection) N39.0 Acute kidney injury superimposed on chronic kidney disease N17.9; N18.9 Chronic, continuous use of opioids F11.90 Weakness R53.1 Hypothyroidism E03.9 Afib I48.91 Atrial fibrillation type: unspecified Urine retention R33.9 Anemia D64.9
[2022-08-20] MEDS ORDERED: THIAMINE HCL 100 MG TAB PO SCH (09:00)
== END 2022-08-19 17:21 | DRG 689 ==
LOC: ED 04:56 → EDINP 10:31 → SUATTDRO 10:31 → 4W 12:15 → 1E 08-03 18:52 → 4W 08-03 19:36 → 3N 08-14 21:58
DX: T40.905A Adverse effect of unspecified psychodysleptics [hallucinogens], initial encounter; I34.0 Nonrheumatic mitral (valve) insufficiency; G92.9 Unspecified toxic encephalopathy; I48.91 Unspecified atrial fibrillation; R33.9 Retention of urine, unspecified; I42.8 Other cardiomyopathies; I13.0 Hypertensive heart and chronic kidney disease with heart failure and stage 1 through stage 4 chronic kidney disease, or unspecified chronic kidney disease; Z86.73 Personal history of transient ischemic attack (TIA), and cerebral infarction without residual deficits; B96.20 Unspecified Escherichia coli [E. coli] as the cause of diseases classified elsewhere; I50.22 Chronic systolic (congestive) heart failure; R19.5 Other fecal abnormalities; F03.92 Unspecified dementia, unspecified severity, with psychotic disturbance; F03.90 Unspecified dementia, unspecified severity, without behavioral disturbance, psychotic disturbance, mood disturbance, and anxiety; T40.2X5A Adverse effect of other opioids, initial encounter; E03.9 Hypothyroidism, unspecified; E87.3 Alkalosis; E87.1 Hypo-osmolality and hyponatremia; E87.20 Acidosis, unspecified; N39.0 Urinary tract infection, site not specified; N18.30 Chronic kidney disease, stage 3 unspecified; R44.3 Hallucinations, unspecified; E87.0 Hyperosmolality and hypernatremia; Z88.5 Allergy status to narcotic agent; G93.41 Metabolic encephalopathy; Z83.3 Family history of diabetes mellitus; N17.9 Acute kidney failure, unspecified; Z79.891 Long term (current) use of opiate analgesic; R00.1 Bradycardia, unspecified; Z79.890 Hormone replacement therapy